=== PATIENT | female | born 1955 | race Hispanic/Latino ===

== ENCOUNTER 2018-08-06 06:08 | Emergency (ER) | payer OTHER ==
--- OUTSIDE RECORDS SUMMARY | 2018-08-06 06:10 | XMS REPORT ---
:1955 [facility] [address] [place] [address] Care Team Providers Name Role Phone Unavailable Unavailable Unavailable Problems This patient has no known problems. Allergies, Adverse Reactions, Alerts This patient has no known allergies or adverse reactions. Medications This patient has no known medications. Results Test Description Test Time Test Comments Text Results Atomic Results Result Comments SCR MAMM BILATERAL BOUCHRA 2018-06-07 10:39:44 - SCR MAMM BILATERAL BOUCHRA CAD CAD DIGITAL DIGITALBILATERAL DIGITAL SCREENING MAMMOGRAM 3D/2D WITH CAD: 05/26/2018CLINICAL: Asymptomatic. Digital breast tomosynthesis was performed in addition to routine CC and MLO views. Current mammographic images were evaluated by either a [employer] M-Vu or a [employer] ImageChecker CAD (computer aided detection system). No prior outside exams are currently available for comparison. There are scattered fibroglandular tissues in both breasts. There is minimal vascular calcification in the right breast. There also is a benign calcification in the left breast. Additionally, there are small benign-appearing masses, possible intramammary nodes, in the posterior inferomedial left breast. No suspicious mass, architectural distortion, malignant type calcification, or lymph node abnormality detected. IMPRESSION: BENIGNThere is no mammographic evidence of malignancy. Resume annual screening mammography in one year. The patient is unable to recall the location where prior mammograms were obtained. Please advise if your office has a record of prior studies so that attempts can be made to obtain prior mammograms for comparison.Ravinder Beatty M.D. rb/:06/07/2018 10:39:44 [place] Machine Operator: Minerva Long MM, [facility] Mammographyletter sent: BIRADS 1-2 Normal Mammogram BI-RADS: 2 Benign
[2018-08-06] MEDS ORDERED: LIDOCAINE 1% 20 ML MDV ONE (06:54)
[2018-08-06] MEDS ORDERED: TETANUS & DIPHTHERIA TOX,ADULT 0.5 ML VIAL ONE (06:55)
--- NOTE | 2018-08-06 08:13 | RAD REPORT ---
EXAM DESCRIPTION: RAD - Forearm Right - 08/06/2018 7:10 am CLINICAL HISTORY: Fall, trauma, laceration COMPARISON: None. FINDINGS: Two-view right 4 examination performed. Positioning is not optimal. Patient was not able t o fully extend the arm. There is no dislocation or periosteal reaction noted. No acute or destructive bone process seen. The re is minimal degenerative change at the humerus ulna articulation. Soft tissues are prominent. Baseline for the patient is unknown. No foreign body seen. IMPRESSION: No foreign body identified. No acute bone or joint finding.
--- NOTE | 2018-08-06 08:14 | RAD REPORT ---
EXAM DESCRIPTION: RAD - Humerus Right - 08/06/2018 7:10 am CLINICAL HISTORY: Fall, trauma, arm pain COMPARISON: None. FINDINGS: No fracture is identified. There is no dislocation or periosteal reaction noted. Surgical hardware in place in the right humeral head presumed to be rotator cuff repair procedure. Soft tissue calcification is seen on the internal rotation view along the humeral head. This is probably a degen erative tendon calcification. This is not acutely significant. Minimal degenerative change present at the elbow joint. No air or foreign body in the soft tissues. IMPRESSION: Negative right humerus for acute bone or joint finding. No foreign body or suspicious soft tissue finding.
--- NOTE | 2018-08-06 08:45 | EDPHYS ---
Physician Documentation [facility] Name: Debbi Soto Age: 63 yrs Sex: Female : 1955 Arrival Date: 08/06/2018 Time: 06:11 Bed 15 Private MD: ED Physician Keyon Chi HPI: 08/06 07:14 This 63 yrs old Female presents to ER via Ambulatory with complaints of Fall kb Injury, LACERATIONS. 07:14 Details of fall: The patient fell from an upright position, while walking. Onset: The kb symptoms/episode began/occurred this morning. Associated injuries: The patient sustained right tricep and palmar aspect of right forearm, laceration. Severity of symptoms: At their worst the symptoms were moderate, in the emergency department the symptoms are unchanged. The patient has not experienced similar symptoms in the past. The patient has not recently seen a physician. Pt reports she was walking at the dentist's office, tripped on a lip in the floor, and fell. Arm went through a window causing laceration to upper arm and forearm. Denies any other injuries. Historical: - Allergies: 06:15 Morphine; jb4 - Home Meds: 06:15 amlodipine oral [Active]; benazepril 20 mg Oral tab unknown frequency [Active]; jb4 lovastatin 10 mg Oral tab 1 tab once daily [Active]; metoprolol 100mg unknown frequency [Active]; spironolactone 25 mg Oral tab unknown frequency [Active]; Vitamin D3 Oral [Active]; [place]-3 Oral [Active]; - PMHx: 06:15 Hyperlipidemia; Hypertension; Sleep Apnea; jb4 - PSHx: 06:15 right rotator cuff; Cholecystectomy; right hand; jb4 - Immunization history:: Adult Immunizations up to date, Last tetanus immunization: unknown. - Social history:: Smoking status: Patient/guardian denies using tobacco, Patient/guardian denies using alcohol. - Ebola Screening: : No symptoms or risks identified at this time. ROS: 07:13 Constitutional: Negative for fever, chills, and weight loss, Neck: Negative for injury, kb pain, and swelling, Cardiovascular: Negative for chest pain, palpitations, and edema, Respiratory: Negative for shortness of breath, cough, wheezing, and pleuritic chest pain, Abdomen/GI: Negative for abdominal pain, nausea, vomiting, diarrhea, and constipation, Back: Negative for injury and pain, : Negative for injury, bleeding, discharge, and swelling, MS/Extremity: Negative for injury and deformity, Neuro: Negative for headache, weakness, numbness, tingling, and seizure. 07:13 Skin: Positive for laceration(s), of the right tricep and palmar aspect of right forearm. Exam: 07:13 Constitutional: This is a well developed, well nourished patient who is awake, alert, kb and in no acute distress. Head/Face: Normocephalic, atraumatic. Chest/axilla: Normal chest wall appearance and motion. Nontender with no deformity. No lesions are appreciated. Cardiovascular: Regular rate and rhythm with a normal S1 and S2. No gallops, murmurs, or rubs. Normal PMI, no JVD. No pulse deficits. Respiratory: Lungs have equal breath sounds bilaterally, clear to auscultation and percussion. No rales, rhonchi or wheezes noted. No increased work of breathing, no retractions or nasal flaring. Abdomen/GI: Soft, non-tender, with normal bowel sounds. No distension or tympany. No guarding or rebound. No evidence of tenderness throughout. MS/ Extremity: Pulses equal, no cyanosis. Neurovascular intact. Full, normal range of motion. Neuro: Awake and alert, GCS 15, oriented to person, place, time, and situation. Cranial nerves II-XII grossly intact. Motor strength 5/5 in all extremities. Sensory grossly intact. Cerebellar exam normal. Normal gait. Vital Signs: 06:15 BP 185 / 121; Pulse 85; Resp 16; Temp 98.3(O); Pulse Ox 95% on R/A; Weight 136.08 kg jb4 (R); Height 5 ft. 0 in. (152.40 cm) (R); Pain 2/10; 07:00 BP 174 / 97; Pulse 74; Resp 19; Pulse Ox 99% on R/A; em 08:00 BP 168 / 101; Pulse 76; Resp 18; Pulse Ox 99% on R/A; em 06:15 Body Mass Index 58.59 (136.08 kg, 152.40 cm) jb4 Laceration: 08:41 Wound Repair of 6cm ( 2.4in ) subcutaneous laceration to right tricep. Linear shaped.. kb Distal neuro/vascular/tendon intact. Anesthesia: Wound infiltrated with 5 mls of 1% lidocaine. Wound prep: Extensive cleansing with hibiclenz by me, Wound irrigation with saline by me. Skin closed with 7 4-0 Prolene using interrupted sutures and sterile technique. Dressed with Neosporin, 4x4's. Patient tolerated well. 08:41 Wound Repair of 4cm ( 1.6in ) subcutaneous laceration to palmar aspect of right kb forearm. Irregularly shaped.. Distal neuro/vascular/tendon intact. Anesthesia: Wound infiltrated with 4 mls of 1% lidocaine. Wound prep: Extensive cleansing with hibiclenz by me, Wound irrigation with saline by me. Skin closed with 6 4-0 Prolene using interrupted sutures and sterile technique. Dressed with Neosporin, 4x4's. Patient tolerated well. MDM: 06:24 Patient medically screened. kb 07:13 Data reviewed: vital signs, nurses notes. Data interpreted: Pulse oximetry: on room air kb is 95 %. Interpretation: normal. 08:42 Counseling: I had a detailed discussion with the patient and/or guardian regarding: the kb historical points, exam findings, and any diagnostic results supporting the discharge/admit diagnosis, radiology results, the need for outpatient follow up, a family practitioner, to return to the emergency department if symptoms worsen or persist or if there are any questions or concerns that arise at home. Special discussion: I have referred the patient to see his PCP for further evaluation of high blood pressure. ED course: Pt reports she is supposed to take medication for blood pressure, but she stopped taking it because she has a fatty liver. Educated on the importance of controlling blood pressure and to follow up with PCP to continue medications. 08/06 06:30 Order name: Humerus Right XRAY; Complete Time: 08:41 kb 08/06 06:30 Order name: Forearm Right XRAY; Complete Time: 08:41 kb 08/06 06:32 Order name: Prolene, Sutures; Complete Time: 06:47 kb 08/06 06:32 Order name: Dressing - Wound; Complete Time: 08:52 kb 08/06 06:32 Order name: Gloves, Sterile; Complete Time: 06:47 kb 08/06 06:32 Order name: Setup Suture Tray; Complete Time: 06:47 kb Administered Medications: 06:57 Drug: Tetanus-Diphtheria Toxoid Adult 0.5 ml {Wellness Educator: [employer]. Exp: jb4 05/21/2020. Lot #: [id number]. } Route: IM; Site: left deltoid; 07:00 Follow up: Response: No adverse reaction em 08:20 Drug: Lidocaine (1 %) 1 vials {Note: administered by NP. Saba} Volume: 20 ml; em Route: Infiltration; 08:30 Follow up: Response: No adverse reaction; Pain is decreased em Disposition: 08/06/18 08:44 Discharged to Home. Impression: Laceration without foreign body of right forearm, Laceration without foreign body of right upper arm, Essential (primary) hypertension. - Condition is Stable. - Discharge Instructions: Hypertension, [id number], Laceration Care, Adult, Iele-[id number]. - Medication Reconciliation Form, Thank You Letter, Antibiotic Education, Prescription Opioid Use form. - Follow up: Emergency Department; When: As needed; Reason: Worsening of condition. Follow up: Private Physician; When: 2 - 3 days; Reason: Recheck today's complaints, Continuance of care, Re-evaluation by your physician. Signatures: Dispatcher [employer] EDSaba Rice, MACHINE SHOP SUPERVISOR-C MACHINE SHOP SUPERVISOR-Brandonb Rich García, LABEL MAKER LABEL MAKER Nicholas Lofton, YOLANDA RN jb4 Corrections: (The following items were deleted from the chart) 08:44 08:44 08/06/2018 08:44 Discharged to Home. Impression: Laceration without foreign body kb of right forearm; Laceration without foreign body of right upper arm. Condition is Stable. Forms are Medication Reconciliation Form, Thank You Letter, Antibiotic Education, Prescription Opioid Use. Follow up: Emergency Department; When: As needed; Reason: Worsening of condition. Follow up: Private Physician; When: 2 - 3 days; Reason: Recheck today's complaints, Continuance of care, Re-evaluation by your physician. kb 09:00 08:44 08/06/2018 08:44 Discharged to Home. Impression: Laceration without foreign body em of right forearm; Laceration without foreign body of right upper arm; Essential (primary) hypertension. Condition is Stable. Discharge Instructions: Hypertension, Dfgi-ln-Ltey, Laceration Care, Adult, Khhj-[id number]. Forms are Medication Reconciliation Form, Thank You Letter, Antibiotic Education, Prescription Opioid Use. Follow up: Emergency Department; When: As needed; Reason: Worsening of condition. Follow up: Private Physician; When: 2 - 3 days; Reason: Recheck today's complaints, Continuance of care, Re-evaluation by your physician. kb
--- NOTE | 2018-08-06 08:45 | ER ---
Nurse's Notes [facility] Name: Debbi Soto Age: 63 yrs Sex: Female : 1955 Arrival Date: 08/06/2018 Time: 06:11 Bed 15 Private MD: Diagnosis: Laceration without foreign body of right forearm;Laceration without foreign body of right upper arm;Essential (primary) hypertension Presentation: 08/06 06:15 Presenting complaint: Patient states: I fell through a glass door this morning and cut jb4 my elbow. It feels like there is still glass in it. 06:15 Transition of care: patient was not received from another setting of care. Onset of jb4 symptoms was August 06, 2018. Risk Assessment: Do you want to hurt yourself or someone else? Patient reports no desire to harm self or others. Initial Sepsis Screen: Does the patient meet any 2 criteria? No. Patient's initial sepsis screen is negative. Does the patient have a suspected source of infection? No. Patient's initial sepsis screen is negative. Care prior to arrival: None. 06:15 Method Of Arrival: Ambulatory jb4 06:15 Acuity: GONSALO 3 jb4 Triage Assessment: 06:15 General: Appears in no apparent distress. comfortable, Behavior is calm, cooperative, jb4 appropriate for age. Pain: Complains of pain in right elbow and palmar aspect of right forearm Pain does not radiate. Pain currently is 2 out of 10 on a pain scale. Pain began 1 hour ago. EENT: No signs and/or symptoms were reported regarding the EENT system. Neuro: Level of Consciousness is awake, Oriented to person. Cardiovascular: Patient's skin is warm and dry. Respiratory: Airway is patent Respiratory effort is even, unlabored, Respiratory pattern is regular, symmetrical. GI: No signs and/or symptoms were reported involving the gastrointestinal system. : No signs and/or symptoms were reported regarding the genitourinary system. Derm: Skin is pink, warm \T\ dry. Wound noted right elbow and palmar aspect of right forearm Lacerations to the elbow and upper forearm. Musculoskeletal: Circulation, motion, and sensation intact. Injury Description: Laceration sustained to right elbow and palmar aspect of right forearm is full thickness, 2.6 to 7.5 cm long, bleeding moderately, moderate bleeding noted at this time. Historical: - Allergies: 06:15 Morphine; jb4 - Home Meds: 06:15 amlodipine oral [Active]; benazepril 20 mg Oral tab unknown frequency [Active]; jb4 lovastatin 10 mg Oral tab 1 tab once daily [Active]; metoprolol 100mg unknown frequency [Active]; spironolactone 25 mg Oral tab unknown frequency [Active]; Vitamin D3 Oral [Active]; [place]-3 Oral [Active]; - PMHx: 06:15 Hyperlipidemia; Hypertension; Sleep Apnea; jb4 - PSHx: 06:15 right rotator cuff; Cholecystectomy; right hand; jb4 - Immunization history:: Adult Immunizations up to date, Last tetanus immunization: unknown. - Social history:: Smoking status: Patient/guardian denies using tobacco, Patient/guardian denies using alcohol. - Ebola Screening: : No symptoms or risks identified at this time. Screenin:15 Abuse screen: Denies threats or abuse. Nutritional screening: No deficits noted. jb4 Tuberculosis screening: No symptoms or risk factors identified. Fall Risk None identified. Assessment: 06:15 General: see triage assessment.. jb4 06:30 Reassessment: Provider notified of high blood pressure, no orders at this time. jb4 07:00 Reassessment: Patient appears in no apparent distress at this time. Patient and/or em family updated on plan of care and expected duration. Pain level reassessed. Patient is alert, oriented x 3, equal unlabored respirations, skin warm/dry/pink. pending x-ray results and sutures. 08:00 Reassessment: Patient appears in no apparent distress at this time. Patient and/or em family updated on plan of care and expected duration. Pain level reassessed. Patient is alert, oriented x 3, equal unlabored respirations, skin warm/dry/pink. Vital Signs: 06:15 BP 185 / 121; Pulse 85; Resp 16; Temp 98.3(O); Pulse Ox 95% on R/A; Weight 136.08 kg jb4 (R); Height 5 ft. 0 in. (152.40 cm) (R); Pain 2/10; 07:00 BP 174 / 97; Pulse 74; Resp 19; Pulse Ox 99% on R/A; em 08:00 BP 168 / 101; Pulse 76; Resp 18; Pulse Ox 99% on R/A; em 06:15 Body Mass Index 58.59 (136.08 kg, 152.40 cm) jb4 ED Course: 06:11 Patient arrived in ED. es 06:15 Arm band placed on left wrist. jb4 06:15 Patient has correct armband on for positive identification. Bed in low position. Call jb4 light in reach. Side rails up X 1. Pulse ox on. NIBP on. 06:24 Saba Nice [facility]-C [facility]. kb 06:24 Keyon Chi MD is Attending Physician. kb 06:30 Nicholas Rose, YOLANDA is Primary Nurse. jb4 06:32 Triage completed. jb4 07:10 Humerus Right XRAY In Process Unspecified. EDMS 07:10 Forearm Right XRAY In Process Unspecified. EDMS 08:30 Assist provider with laceration repair on back of right arm that was between 2.6 to 7.5 em cm using sutures. Set up tray. Performed by Saba MTZ Dressed with 4X4s, Kerlix, Patient tolerated well. 08:48 Dressings: Kerlix X 1; right tricep 4X4s X 4; right tricep. Wound care:. Wound care: kj1 triple antibiotic ointment applied. 08:59 Patient did not have IV access during this emergency room visit. em Administered Medications: 06:57 Drug: Tetanus-Diphtheria Toxoid Adult 0.5 ml {Restaurant Recruiter: [employer]. Exp: jb4 05/21/2020. Lot #: [id number]. } Route: IM; Site: left deltoid; 07:00 Follow up: Response: No adverse reaction em 08:20 Drug: Lidocaine (1 %) 1 vials {Note: administered by NP. Saba} Volume: 20 ml; em Route: Infiltration; 08:30 Follow up: Response: No adverse reaction; Pain is decreased em Outcome: 08:44 Discharge ordered by . kb 08:59 Discharged to home ambulatory, with family. em 08:59 Condition: good 08:59 Discharge instructions given to patient, family, Instructed on discharge instructions, follow up and referral plans. Demonstrated understanding of instructions, follow-up care. 09:00 Patient left the ED. em Signatures: Dispatcher [employer] EDSaba Rice FNP-C FNP-Ckb Salyer, Edna es García, Rich, RUBBER THREAD SPOOLER RUBBER THREAD SPOOLER Nicholas Lofton, RN RN jb4 Meron Nice kj1
[2018-08-06 09:14] VITALS: TEMP 98.4
[2018-08-06 09:16] VITALS: BP 132/82; O2SAT 100
== END 2018-08-06 09:00 | disposition home or self-care (01) ==
LOC: ER 06:08
PROC: 0JQG0ZZ Repair Right Lower Arm Subcutaneous Tissue and Fascia, Open Approach (ICD-10-PCS; principal; 2018-08-06)
PROC: 0JQD0ZZ Repair Right Upper Arm Subcutaneous Tissue and Fascia, Open Approach (ICD-10-PCS; 2018-08-06)
DX: S51.811A Laceration without foreign body of right forearm, initial encounter (principal); S41.111A Laceration without foreign body of right upper arm, initial encounter; I10 Essential (primary) hypertension; W01.110A Fall on same level from slipping, tripping and stumbling with subsequent striking against sharp glass, initial encounter; Y93.89 Activity, other specified; Y92.531 Health care provider office as the place of occurrence of the external cause; Z23 Encounter for immunization
CPT/HCPCS: 90714; 99284

== ENCOUNTER 2022-01-20 08:43 | Emergency (ER) | payer OTHER ==
--- OUTSIDE RECORDS SUMMARY | 2022-01-20 08:46 | XMS REPORT | Continuity of Care Document ---
:1955 Author Organization [facility] t Address [address] [place] [address] Care Team Providers Name Role Phone SHAGGY WINSLOW A Primary Care Physician Unavailable PATRICIA HUMMEL Attending Clinician Unavailable GEOVANNA BOUDREAUX Attending Clinician Unavailable Payers Payer Name Policy Type Policy Number Effective Date Expiration Date S manuel [facility] DUAL [id number] 2020 COMP HMO D SNP 00:00:00 [place] [id number] 2019 00:00:00 Problems Condition Condition Condition Status Onset Resolution Last Treating Co mments Source Name Details Category Date Date Treatment Clinician Date 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 obstructiv obstructiv 1-22 it y of e sleep e sleep 00:: [place] apnea apnea [facility] Osteopenia Osteopenia Disease Active 2020-05 U nivers 0-29 ity of 00:00: [address] Microscopi Microscopi Disease Active 2020-05 U nivers c c 0-22 [place] [facility] Vitamin D Vitamin D Disease Active 2019-05 Uni vers deficiency deficiency 0-25 it y of 00:00: [address] Abnormal Abnormal Disease Active 2019-05 Unive rs EKG EKG 0-21 ity of 00:00: [address] Chronic Chronic Disease Active Univers constipati constipati 4-23 it y of on on 00:00: [place] 00 Medical Branch Urinary Urinary Disease Active 2018-05 Univers incontinen incontinen 1-22 it y of ce, ce, 00:00: [place] unspecifie unspecifie 00 Me dical d type d type Branch Prediabete Prediabete Disease Active 2018-05 U nivers s s 0-30 ity of 00:00: Medical Branch Fatty Fatty Disease Active 2018-05 Univers liver liver 0-28 ity of 00:00: [place] 00 Medical Branch Essential Essential Disease Active Uni vers hypertensi hypertensi 8-21 it y of on, benign [place], benign [place] Hyperchole Hyperchole Disease Active U nivers sterolemia sterolemia 8- it y of 00:00: 00 Medical Branch Morbid Morbid Disease Active Univers obesity obesity 4-26 ity of with body with body 00[place] mass index mass index 00 Me dical of 50 or of 50 or Branch higher higher Allergies, Adverse Reactions, Alerts Allergy Allergy Status Severity Reaction(s) Onset Inactive Treating Comm ents Source Name Type Date Date Clinician MORPHINE DRUG Active Other-Cmnt Univ ers INGREDI 4-25 ity of 00:00: [place] 00 Medical Branch Morphine Drug Active Other - See Pt states Univers Intolera comments 08-25 that ity of nce 00:00: Morphine [place] 00 makes Medical pt's pain Branch worse. Social History Social Habit Start Date Stop Date Quantity Comments Source Exposure to 2021-12-27 2022-01-06 Not sure [facility] SARS-CoV-2 00:00:00 08:18:00 [place] [facility] (event) Branch Alcohol intake 2021-12-22 2021-12-22 Current [facility] 00:00:00 00:00:00 non-drinker of [facility] alcohol (finding) Branch Tobacco use and 2021-12-15 2021-12-15 Smokeless tobacco Un iversity of exposure 00:00:00 00:00:00 non-user [facility] Sex Assigned At [birth year] Universit y of 00:00:00 00:00:00 [facility] Smoking Status Start Date Stop Date Source Never smoked tobacco [facility] Medications Ordered Filled Start Stop Current Ordering Indication Dosage Frequency Signature Comments Components Source Medication Medication Date Date Medication? Clinician (SIG) Name Name METFORMIN 0 Yes [id number] TAKE 1 U nivers 500 mg 9-14 TABLET BY ity of tablet 00:00: MOUTH [place] 00 TWICE A Medical DAY WITH Branch MEALS METFORMIN 2021-0 Yes [id number] TAKE 1 U nivers 500 mg 9-14 TABLET BY ity of tablet 00:00: MOUTH [place] 00 TWICE A Medical DAY WITH Branch MEALS ATORVASTATI Yes TAKE 1 Univ ers N 80 mg 9-09 TABLET BY ity of tablet 00:00: MOUTH [place] 00 EVERYDAY Medical AT BEDTIME Branch ATORVASTATI 0 Yes TAKE 1 Univ ers N 80 mg 9-09 TABLET BY ity of tablet 00:00: MOUTH [place] 00 EVERYDAY Medical AT BEDTIME Branch mirabegron Yes [id number] 50mg Take 1 U nivers (MYRBETRIQ) 8-22 tablet by ity of 50 mg 00:00: mouth in [place] tablet 00 the Medical morning. Branch mirabegron Yes [id number] 50mg Take 1 U nivers (MYRBETRIQ) 8-22 tablet by ity of 50 mg 00:00: mouth in [place] tablet 00 the Medical morning. Branch evolocumab Yes [id number] 140mg inject 140 Univers (REPATHA 7-28 104 mg under ity of SURECLICK) 00:00: the skin [place] 140 mg/mL 00 every 2 Medical PnIj (two) Branch weeks. evolocumab Yes [id number] 140mg inject 140 Univers (REPATHA 7-28 104 mg under ity of SURECLICK) 00:00: the skin [place] 140 mg/mL 00 every 2 Medical PnIj (two) Branch weeks. NIFEdipine 2021-0 2021- Yes [id number] 30mg Take 1 Univers XL 30 mg 24 7-25 10-24 104 tablet by it y of hr tablet 00:00: 04:59 mouth in [place] 00 :00 the Medical morning Branch and 1 tablet in the evening. Do all this for 90 days. NIFEdipine 2021-0 2021- Yes [id number] 30mg Take 1 Univers XL 30 mg 24 7-25 10-24 104 tablet by it y of hr tablet 00:00: 04:59 mouth in [place] 00 :00 the Medical morning Branch and 1 tablet in the evening. Do all this for 90 days. losartan 50 2-0 Yes [id number] 50mg Take 1 U nivers mg tablet 5-02 tablet by ity o f 00:00: mouth 2 (two) Medical times Branch daily. losartan 50 2-0 Yes [id number] 50mg Take 1 U nivers mg tablet 5-02 tablet by ity o f 00:00: mouth 2 (two) Medical times Branch daily. mv-mn/iron/ 2021-0 Yes 2000mg Take 2,000 Univers folic 4-21 mg by ity of acid/herb 10:15: mouth [place] 190 42 daily. Medical (VITAMIN D3 Branch COMPLETE ORAL) mv-mn/iron/ 2021-0 Yes 2000mg Take 2,000 Univers folic 4-21 mg by ity of acid/herb 10:15: mouth [place] 190 42 daily. Medical (VITAMIN D3 Branch COMPLETE ORAL) EZETIMIBE 2021-0 Yes TAKE 1 Univer s 10 mg 4-11 TABLET BY ity of tablet 00:00: MOUTH [place] 00 EVERY DAY Medical Branch EZETIMIBE 2-0 Yes TAKE 1 Univer s 10 mg 4-11 TABLET BY ity of tablet 00:00: MOUTH [place] 00 EVERY DAY Medical Branch trospium 20 2-0 Yes [id number] 20mg Take 1 Univers mg tablet 2-25 tablet by ity o f 00:00: mouth 2 (two) Medical times Branch daily. trospium 20 2-0 Yes [id number] 20mg Take 1 Univers mg tablet 2-25 tablet by ity o f 00:00: mouth (two) Medical times Branch daily. Cholecalcif 2020-1 Yes [id number] 2000U Take 1 Univers perfecto, 1-08 capsule by ity of Vitamin D3, 00:00: mouth [place] (D3-1999) 00 daily. Medical 50 mcg Take with Branch (2,000 food. unit) capsule Cholecalcif 2020-1 Yes [id number] 2000U Take 1 Univers perfecto, 1-08 capsule by ity of Vitamin D3, 00:00: mouth [place] (D3-2000) 00 daily. Medical 50 mcg Take with Branch (2,000 food. unit) capsule icosapent 2020-1 Yes [id number] 2g Take 2 U nivers ethyL 0-19 capsules ity of (VASCEPA) 1 00:00: by mouth 2 [place] gram 00 (two) Medical capsule times Branch daily. icosapent 2020-05 Yes [id number] 2g Take 2 U nivers ethyL 0-19 capsules ity of (VASCEPA) 1 00:00: by mouth 2 [place] gram 00 (two) Medical capsule times Branch daily. Incontinenc 2018-05 Yes [id number] Use as Univers e Pad, 1-22 directed; ity of Liner, Disp 00:00: ICD-10 [place] 00 DIAGNOSIS Medical CODE R32 Branch Diaper,Brie 2018-05 Yes [id number] Use as Univers f, 1-22 directed; ity of Adult,Dispo 00:00: ICD-10 [place] 00 DIAGNOSIS Medical (WINGS XXL CODE R32 Branc h ADULT BRIEF) [facility] Incontinenc 2018-05 Yes [id number] Use as Univers e Pad, 1-22 directed; ity of Liner, Disp 00:00: ICD-10 [place] 00 DIAGNOSIS Medical CODE R32 Branch Diaper,Brie 2018-05 Yes [id number] Use as Univers f, 1-22 directed; ity of Adult,Dispo 00:00: ICD-10 [place] 00 DIAGNOSIS Medical (WINGS XXL CODE R32 Branc h ADULT BRIEF) [facility] Immunizations Ordered Filled Immunization Date Status Comments [facility] e Immunization Name Name Influenza Virus 2021-04-08 Completed Universit y of Vaccine,quad 00:00:00 [place] [facility] Free [place] 65+ SARS-COV-2 COVID-19 2021-04-08 Completed Unive rsity of PFIZER VACCINE 00:00:00 [place] [facility] Influenza Virus 2021-04-08 Completed Universit y of Vaccine,quad 00:00:00 [place] [facility] Im,preserve Free Branch 65+ SARS-COV-2 COVID-19 2021-04-08 Completed Unive rsity of PFIZER VACCINE 00:00:00 [place] [facility] SARS-COV-2 COVID-19 2020-08-01 Completed Unive rsity of PFIZER VACCINE 00:00:00 [place] [facility] SARS-COV-2 COVID-19 2020-08-01 Completed Unive rsity of PFIZER VACCINE 00:00:00 [place] [facility] SARS-COV-2 COVID-19 2020-07-11 Completed Unive rsity of PFIZER VACCINE 00:00:00 [place] [facility] SARS-COV-2 COVID-19 2020-07-11 Completed Unive rsity of PFIZER VACCINE 00:00:00 [place] [facility] TDAP 2017-05-03 Completed University 00:00:00 [facility] 2017-05-03 Completed [facility] 00:00:00 [facility] Vital Signs Vital Name Observation Time Observation Value Comments Source Systolic blood 2022-01-19 13:58:00 130 mm[Hg] Univer sity of pressure [facility] Diastolic blood 2022-01-19 13:58:00 70 mm[Hg] Unive rsity of pressure [facility] Heart rate 2022-01-19 13:58:00 80 /min [facility] Body temperature 2022-01-19 13:58:00 36.56 [facility] Res[facility] rate 2022-01-19 13:58:00 18 /min [facility] Body height 2022-01-19 13:58:00 144.8 cm [facility] Body weight 2022-01-19 13:58:00 117.935 kg [facility] BMI 2022-01-19 13:58:00 56.26 kg/m2 [facility] Procedures This patient has no known procedures. Encounters Start End Encounter Admission Attending Care Care Encounter Source Date/Time Date/Time Type Type Clinicians Facility Department ID 2022-07-03 2022-07-03 Outpatient R [place] [facility] [id number] [facility] 10:30:00 10:30:00 PATRICIA grossman [facility] 2022-01-19 2022-01-19 [facility] [id number] Univers 09:00:00 09:50:21 Visit Patricia KAN [id number] i [facility] [id number] Adele QUAN [id number] Wa dical [facility]8 [facility] 2021-07-28 2021-07-28 Outpatient R JANUSZ [facility] [id number] Univers 09:30:00 09:30:00 SENDIL [facility] Results Test Description Test Time Test Comments Results Result Sourc e Comments SCR MAMM 2018-06-07 - SCR MAMM BILATERAL BILATERAL [place]OUCHRA 10:39:44 [place] CAD CAD DIGITAL DIGITALBILATERAL DIGITAL SCREENING MAMMOGRAM 3D/2D WITH CAD: 05/26/2018CLINICAL: Asymptomatic. Digital breast tomosynthesis was performed in addition to routine CC and MLO views. Current mammographic images were evaluated by either a [employer] M-Vu or a Universal Biosensorscker CAD (computer aided detection system). No prior [...] mammograms for comparison.Ravinder Beatty M.D. rb/:06/07/2018 10:39:44 Shingle Packer: Minerva Long MM, [facility] Mammographyletter sent: BIRADS 1-2 Normal Mammogram BI-RADS: 2 Benign
[2022-01-20 09:56] LABS: Urine Blood 2+ (Negative); Urine Glucose Negative (Negative); Urine Protein 2+ (Negative); Urine Specific Gravity 1.025 (1.005-1.030)
[2022-01-20] MEDS ORDERED: LIDOCAINE 4% PATCH ONE (10:21)
[2022-01-20 11:05] LABS: Urine Bacteria <20 /HPF (<20); Urine Mucus Slight /HPF (None Seen); Urine RBC <5 /HPF (None Seen)
[2022-01-20 12:17] LABS: Hematocrit 41.9 % (36.0-45.0); Lymphocytes % 25.7 % (15.3-44.8); MCV 88.9 fL (80-100); MPV 8.5 fL (7.6-11.3); RBC Red Blood Cell Count 4.71 M/uL (3.86-4.86)
[2022-01-20 12:39] LABS: Albumin 3.6 g/dL (3.4-5.0); Bilirubin Total 0.7 mg/dL (0.2-1.0); Potassium 4.2 mmol/L (3.5-5.1); Protein, Total 7.8 g/dL (6.4-8.2); Troponin High Sensitivity 37.4 pg/mL (<58.9)
--- NOTE | 2022-01-20 13:11 | RAD REPORT ---
EXAM DESCRIPTION: CT - Abdomen Pelvis Wo Contrast - 01/20/2022 12:56 pm CLINICAL HISTORY: Abdominal pain /flank pain COMPARISON: 2017 TECHNIQUE: Computed axial tomography of the abdomen and pelvis was obtained. IV and oral contrast we re not requested. All CT scans are performed using dose optimization technique as appropriate and may include automated exposure control or mA/KV adjustment according to patient size. FINDINGS: The evaluation of solid organs, vessels and bowel is limited secondary to the lack of con trast administration. The liver, spleen, pancreas, adrenals and kidneys appear grossly normal. The appendix is normal. There is no evidence of diverticulitis. No adnexal mass Cholecystectomy IMPRESSION: No acute abnormality is displayed.
[2022-01-20] MEDS ORDERED: KETOROLAC 30 MG/ML INJ ONE (13:26)
--- NOTE | 2022-01-20 13:39 | EDPHYS ---
Physician Documentation [facility] [place] [facility] Name: Debbi Soto Age: 66 yrs Sex: Female : 1955 Arrival Date: 01/20/2022 Time: 08:45 Bed 12 Private MD: ED Physician Dilma Perdue HPI: 01/20 10:02 This 66 yrs old Female presents to ER via Ambulatory with complaints of Back sd2 Pain. 10:02 66-year-old female presents with chief complaint of right-sided flank and low back sd2 pain. She reports this started evening and she had labs drawn last week where they told her her kidney function was not great and to drink more water. Her back pain progressively worsened throughout the weekend and she was seen at her doctor's office yesterday who referred her to the ER to have an ultrasound performed of her kidneys. The patient reports concern for kidney stone. She has not taken any hehq-aiy-bdxqrku medications for her pain prior to arrival. She denies any dysuria or hematuria or prior history of kidney stones. She denies any significant trauma or injury to the back. She has not had any fevers, saddle anesthesia, difficulty walking, numbness or weakness of the extremities. Historical: - Allergies: 09:19 Morphine; jh5 - PMHx: 09:19 Sleep Apnea; Hyperlipidemia; Hypertension; Diabetes mellitus; jh5 - Immunization history:: Adult Immunizations up to date. - Social history:: Smoking status: Patient denies any tobacco usage or history of. ROS: 10:02 Constitutional: Negative for fever, chills, and weight loss, Eyes: Negative for injury, sd2 pain, redness, and discharge, Cardiovascular: Negative for chest pain, palpitations, and edema, Respiratory: Negative for shortness of breath, cough, wheezing. Abdomen/GI: Negative for abdominal pain, nausea, vomiting, diarrhea. Back: Negative for injury Positive for pain : Negative for dysuria, urinary frequency, hesitancy, urgency and hematuria. MS/Extremity: Negative for injury and deformity, Skin: Negative for injury, rash, and discoloration, Neuro: Negative for headache, numbness and tingling. Exam: 10:02 Constitutional: This is a well developed, well nourished patient who is awake, alert, sd2 and in no acute distress. Head/Face: Normocephalic, atraumatic. Eyes: EOMI, normal conjunctiva bilaterally Chest/axilla: Normal chest wall appearance and motion. Nontender with no deformity. Cardiovascular: Regular rate and rhythm with a normal S1 and S2. No gallops, murmurs, or rubs. 2+ distal pulses. Respiratory: Lungs have equal breath sounds bilaterally, clear to auscultation and percussion. No rales, rhonchi or wheezes noted. No increased work of breathing, no retractions or nasal flaring. Abdomen/GI: Soft, non-tender, with normal bowel sounds. No guarding or rebound. No evidence of tenderness throughout. Back: No spinal tenderness. R CVA TTP and R lumbar paraspinal muscular tenderness. Full range of motion. Skin: Warm, dry with normal turgor. Normal color with no rashes, no lesions, and no evidence of cellulitis. MS/ Extremity: Pulses equal, no cyanosis. Neurovascular intact. Full, normal range of motion. Ambulatory without difficulty. Neuro: Awake and alert, GCS 15, oriented to person, place, time, and situation. Motor strength 5/5 in BLEs, Ambulatory without difficulty, sensation intact Psych: Awake, alert, with orientation to person, place and time. Behavior, mood, and affect are within normal limits. 11:23 ECG was reviewed by the Attending Physician. NSR, rate 67, no STEMI criteria, wandering sd2 baseline Vital Signs: 09:15 BP 136 / 79; Pulse 79; Resp 16; Temp 98.6; Pulse Ox 98% on R/A; Weight 117.93 kg; jh5 Height 5 ft. 0 in. (152.40 cm); Pain 10/10; 09:15 Body Mass Index 50.78 (117.93 kg, 152.40 cm) jh5 MDM: 09:55 Patient medically screened. sd2 10:02 Differential diagnosis: Spinal stenosis, epidural abscess, cauda equina, fracture, sd2 sprain, strain, herniated disc, UTI among others. Data reviewed: vital signs, nurses notes. 13:36 Data reviewed: lab test result(s), EKG, radiologic studies. Counseling: I had a sd2 detailed discussion with the patient and/or guardian regarding: the historical points, exam findings, and any diagnostic results supporting the discharge/admit diagnosis, lab results, radiology results, the need for outpatient follow up, to return to the emergency department if symptoms worsen or persist or if there are any questions or concerns that arise at home. Medical screen evaluation completed. EMTALA emergency medical condition absent. ED course: Labs and imaging reviewed. No significant abnormalities noted with patient's kidney function. UA without clear evidence of infection. CTAP with no acute abnormalities. Pt feeling much improved after Toradol and lidocaine patch. Pt is comfortable with plan for discharge and outpatient follow up. Suspect MSK etiology. Pt verbalizes understanding of discharge plan and strict return precautions. . 01/20 09:56 Order name: Urine Dipstick-Ancillary; Complete Time: 10:02 EDMS 01/20 09:58 Order name: Urine Microscopic Only; Complete Time: 11:19 bd 01/20 09:58 Order name: Urine Culture bd 01/20 10:02 Order name: CBC with Diff; Complete Time: 12:44 [facility] 01/20 10:02 Order name: CMP; Complete Time: 12:44 [facility] 01/20 10:02 Order name: Troponin High Sensitivity; Complete Time: 12:44 [facility] 01/20 09:51 Order name: Urine Dipstick-Ancillary (obtain specimen); Complete Time: 10:40 [facility] 01/20 09:51 Order name: Urine Test (obtain specimen); Complete Time: 10:40 [facility] 01/20 10:02 Order name: EKG - Nurse/Tech; Complete Time: 10:50 [facility] 01/20 12:20 Order name: CT Abd/Pelvis - Without Contrast; Complete Time: 13:13 ss Administered Medications: 10:14 Drug: Lidoderm Patch 5 % (700 mg/patch) 1 patches Route: Topical; Site: affected area; ap3 13:16 Follow up: Response: Pain is decreased ap3 13:25 Drug: Ketorolac 15 mg Route: IVP; Site: right upper arm; ap3 14:03 Follow up: Response: No adverse reaction; Pain is decreased ap3 Disposition Summary: 01/20/22 13:39 Discharge Ordered Location: Home sd2 Problem: new sd2 Symptoms: have improved sd2 Condition: Stable sd2 Diagnosis - Right low back pain sd2 - Abnormal outpatient lab test sd2 Followup: sd2 - With: Private Physician - When: 2 - 3 days - Reason: Recheck today's complaints, Continuance of care, Re-evaluation by your physician Discharge Instructions: - Discharge Summary Sheet jmm - Acute Back Pain, Adult sd2 - Back Exercises sd2 Forms: - Medication Reconciliation Form sd2 - Thank You Letter sd2 - Antibiotic Education sd2 - Prescription Opioid Use sd2 Prescriptions: - Lidocaine Pain Relief - apply 1 patch by TRANSDERMAL route once daily . as needed. You may leave on for jmm up to 12 hours at a time.; 10 patch; Refills: 0, Product Selection Permitted - Naprosyn 500 mg Oral Tablet - take 1 tablet by ORAL route 2 times per day take with food; 30 tablet; Refills: sd2 0, Product Selection Permitted - methocarbamol 750 mg Oral Tablet - take 1 tablet by ORAL route every 8 hours as needed; 15 tablet; Refills: 0, sd2 Product Selection Permitted Signatures: Dispatcher [employer] Tameka Malhotra RN RN ap3 Raya Razo RN RN jh5 Dilma Perdue MD MD sd2
--- NOTE | 2022-01-20 13:39 | ER ---
Nurse's Notes [facility] Name: Debbi Soto Age: 66 yrs Sex: Female : 1955 Arrival Date: 01/20/2022 Time: 08:45 Bed 12 Private MD: Diagnosis: Right low back pain;Abnormal outpatient lab test Presentation: 01/20 09:15 Chief complaint: Patient states: evening back pain started. Pt had dr mckeon appointment yesterday and told her it might be her kidneys and she needs to come to ER. Coronavirus screen: Vaccine status: Patient reports receiving the 2nd dose of the covid vaccine. Client denies travel out of the [place] in the last 14 days. Ebola Screen: Patient negative for fever greater than or equal to 101.5 degrees Fahrenheit, and additional compatible Ebola Virus Disease symptoms Patient denies exposure to infectious person. Patient denies travel to an Ebola-affected area in the 21 days before illness onset. Initial Sepsis Screen: Does the patient meet any 2 criteria? No. Patient's initial sepsis screen is negative. Does the patient have a suspected source of infection? No. Patient's initial sepsis screen is negative. Risk Assessment: Do you want to hurt yourself or someone else? Patient reports no desire to harm self or others. Onset of symptoms was January 15, 2022. 09:15 Method Of Arrival: Ambulatory [facility] 09:15 Acuity: GONSALO 3 [facility] Triage Assessment: 09:19 General: Appears uncomfortable, obese, Behavior is calm, cooperative, appropriate for [facility] age. Pain: Complains of pain in back. Musculoskeletal: Circulation, motion, and sensation intact. Capillary refill < 3 seconds, Range of motion: intact in all extremities. Historical: - Allergies: 09:19 Morphine; 5 - PMHx: 09:19 Sleep Apnea; Hyperlipidemia; Hypertension; Diabetes mellitus; [facility] - Immunization history:: Adult Immunizations up to date. - Social history:: Smoking status: Patient denies any tobacco usage or history of. Screenin:53 Abuse screen: Denies threats or abuse. Nutritional screening: No deficits noted. ap3 Tuberculosis screening: No symptoms or risk factors identified. 10:53 Fall Risk No fall in past 12 months (0 pts). No secondary diagnosis (0 pts). IV access ap3 (20 points). Ambulatory Aid- None/Bed Rest/Nurse Assist (0 pts). Gait- Impaired (20 pts.). Mental Status- Oriented to own ability (0 pts). Total Chiang Fall Scale indicates Low Risk Score (25-44 pts). Fall prevention measures have been instituted. Side Rails Up X 2 Placed close to Nursing Station Frequent Obs/Assesments occuring As available Patient and Family Educated on Fall Prevention Program and strategies. Assessment: 10:59 General: Appears uncomfortable, Behavior is calm, cooperative. Pain: Complains of pain ap3 in right low back Pain began 2-3 days ago. Neuro: Level of Consciousness is awake, alert, obeys commands, Oriented to person, place, time, situation, Gait is steady. Cardiovascular: Patient's skin is warm and dry. Respiratory: Airway is patent Respiratory effort is even, unlabored. Musculoskeletal: Reports pain in right low back. 11:45 Reassessment: Attempted to obtain labs from R hand x2. Unsuccessful attempts. Pressure ss dressing in place. Pt tolerated well. Called phlebotomy who states they will add patient to the "to be collected" list. 12:05 Reassessment: Patient and/or family updated on plan of care and expected duration. Pain ap3 level reassessed. Patient is alert, oriented x 3, equal unlabored respirations, skin warm/dry/pink. 13:17 Reassessment: Patient and/or family updated on plan of care and expected duration. Pain ap3 level reassessed. Patient is alert, oriented x 3, equal unlabored respirations, skin warm/dry/pink. Vital Signs: 09:15 BP 136 / 79; Pulse 79; Resp 16; Temp 98.6; Pulse Ox 98% on R/A; Weight 117.93 kg; jh5 Height 5 ft. 0 in. (152.40 cm); Pain 10/10; 09:15 Body Mass Index 50.78 (117.93 kg, 152.40 cm) 5 ED Course: 08:45 Patient arrived in ED. rg4 08:52 Dilma Perdue MD is Attending Physician. sd2 09:19 Triage completed. jh5 09:19 Arm band placed on right wrist. jh5 09:54 Tameka Ortega, YOLANDA is Primary Nurse. ap3 10:40 Urine Culture Sent. kc6 10:40 Urine Microscopic Only Sent. kc6 10:53 Patient has correct armband on for positive identification. Bed in low position. Call ap3 light in reach. Side rails up X 1. Pulse ox on. NIBP on. Door closed. Noise minimized. 10:53 Inserted saline lock: 22 gauge in right upper arm, using aseptic technique. ap3 12:58 CT Abd/Pelvis - Without Contrast In Process Unspecified. EDMS 14:02 No provider procedures requiring assistance completed. intact, bleeding controlled, No ap3 redness/swelling at site. Pressure dressing applied. Administered Medications: 10:14 Drug: Lidoderm Patch 5 % (700 mg/patch) 1 patches Route: Topical; Site: affected area; ap3 13:16 Follow up: Response: Pain is decreased ap3 13:25 Drug: Ketorolac 15 mg Route: IVP; Site: right upper arm; ap3 14:03 Follow up: Response: No adverse reaction; Pain is decreased ap3 Medication: 10:53 VIS not applicable for this client. ap3 Outcome: 13:39 Discharge ordered by . sd2 14:02 Discharged to home ambulatory. ap3 14:02 Condition: good 14:02 Discharge instructions given to patient, Instructed on discharge instructions, follow up and referral plans. medication usage, Demonstrated understanding of instructions, follow-up care, medications, Prescriptions given X 3. 14:03 Patient left the ED. ap3 Signatures: Dispatcher [employer] EDNE Amanda Gupta RN RN ss Garcia, Rubi rg4 Tameka Ortega RN RN ap3 Raya Razo RN RN 5 Dilma Perdue MD MD sd2 Jemma Frausto kc6
[2022-01-21 16:29] VITALS: BP 136/79; TEMP 98.6; O2SAT 98
--- NOTE | 2022-01-22 13:42 | EKG ---
Test Date: 2022-01-20 Test Time: 10:50:[address] Mail [employer]rier: BOB MEASUREMENT RESULTS: Intervals: Rate: 67 MS: 180 QRSD: 82 QT: 402 QTc: 424 [place]: P: 38 MS: 180 QRS: 69 T: -1 INTERPRETIVE STATEMENTS: Normal sinus rhythm Nonspecific ST and T wave abnormality Abnormal ECG Compared to ECG 02/06/2017 07:34:57 ST (T wave) deviation now present T-wave abnormality no longer present Electronically Signed On 01-22-22 13:39:12 CDT by Adi Parr
== END 2022-01-20 14:03 | disposition home or self-care (01) ==
LOC: ER 08:43
DX: M54.50 Low back pain, unspecified (principal); R79.9 Abnormal finding of blood chemistry, unspecified; Z88.5 Allergy status to narcotic agent
CPT/HCPCS: 87088; 85025; 87086; 36415; 84484; 80053; 74176; J2001; 81003; 81015; 87077; 87186; 93005; 96374; 99284

== ENCOUNTER 2022-11-16 09:23 | Emergency (ER) | payer OTHER ==
[2022-11-16] MEDS ORDERED: HYDROCODONE/APAP 7.5/325 MG TAB ONE (09:49)
--- OUTSIDE RECORDS SUMMARY | 2022-11-16 15:45 | XMS REPORT | Continuity of Care Document ---
:1955 Author Organization [facility] t Address [address] [place] [address] Care Team Providers Name Role Phone SHAGGY WINSLOW Primary Care Physician Unavailable DOMINIC LANDEROS Attending Clinician Unavailable CINTHYA DUARTE Attending Clinician Unavailable CINTHYA DUARTE Attending Clinician Unavailable DESIREE BOUDREAUX K.H. Attending Clinician Unavailable Janusz TREJO, Sendmindy K.H. Attending Clinician Doctor Unassigned, [place] Attending Clinician Unavailable Jing Mg Attending Clinician Dominic Landeros MD Attending Clinician Alejandra Nice MD Attending Clinician Lab, Ang - Db Attending Clinician Unavailable JING CONN Attending Clinician Unavailable Shaggy Winslow MD Attending Clinician Dany Perez Attending Clinician 2, Adc Lab Attending Clinician Unavailable Krystina Tejeda MD Attending Clinician KRYSTINA TEJEDA Attending Clinician Unavailable Julia Garcia DO Attending Clinician Michael Santiago MD Attending Clinician ATAMICHAEL GRACE Attending Clinician Unavailable MICHAEL SANTIAGO Attending Clinician Unavailable 1, Ad[facility] Sleep Lab Bed Attending Clinician Unavailable Only, Adc Test Attending Clinician Unavailable Leigh Hill PT Attending Clinician Unavailable Pob, Adc Lab Main Attending Clinician Unavailable Nurse, Adc Fam Attending Clinician Unavailable Eran Coffman DO Attending Clinician ERAN COFFMAN Attending Clinician Unavailable Nurse, Adc Pob Immunization Attending Clinician Unavailable Tech, Adc Sleep Lab Attending Clinician Unavailable SHAGGY WINSLOW Attending Clinician Unavailable ZI HERZOG Attending Clinician Unavailable Pc, Adc Echo Room 1 - Attending Clinician Unavailable Promise Martinez MD Attending Clinician Lab, Adc Fam Pob I Attending Clinician Unavailable Rosie Spain Attending Clinician [phone] DOMINIC LANDEROS Admitting Clinician Unavailable CINTHYA DUARTE Admitting Clinician Unavailable KRYSTINA TEJEDA Admitting Clinician Unavailable Dominic Landeros MD Admitting Clinician Payers Payer Name Policy Type Policy Number Effective Date Expiration Date Masoud jackson [facility] DUAL [id number] 2020 COMP HMO D SNP 00:00:00 [place]ICAID [place] [id number] 2019 00:00:00 Problems Condition Condition Condition Status Onset Resolution Last Treating Co mments Source Name Details Category Date Date Treatment Clinician Date 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 obstructiv obstructiv 1-22 it y of e sleep e sleep 00:00: [place] [facility] Osteopenia Osteopenia Disease Active 2020-05 U nivers 0-29 ity of 00:00: [address] Microscopi Microscopi Disease Active 2020-05 U nivers c c 0-22 ity of hematuria hematuria 00[facility]00[facility] Vitamin D Vitamin D Disease Active 2019-05 Uni vers deficiency deficiency 0-25 it y of 00:00: [address] Abnormal Abnormal Disease Active 2019-05 Unive rs EKG EKG 0-21 ity of 00:00: [address] Chronic Chronic Disease Active Univers constipati constipati 4-23 it y of on on 00:00: [place] 00 Medical Branch Urinary Urinary Disease Active 2018-05 Univers incontinen incontinen 1- it y of ce, ce, 00:00: [place] unspecifie unspecifie 00 Me dical d type d type Branch Prediabete Prediabete Disease Active 2018-05 U nivers s s 0-30 ity of 00:00: Medical Branch Fatty Fatty Disease Active 2018-05 Univers liver liver 0-28 ity of 00:00: 00 Medical Branch Essential Essential Disease Active Uni vers hypertensi hypertensi 8- it y of on, benign on, benign 00:00: [place] Hyperchole Hyperchole Disease Active U nivers sterolemia sterolemia 12-21 it y of 00:00: 00 Medical Branch [...] MORPHINE DRUG Active Other-Cmnt Univ ers INGREDI 4- ity of 00:00: [place] 00 Medical Branch Morphine Drug Active Other - See Pt states Univers Intolera comments 08-25 that ity of nce 00:00: Morphine [place] 00 makes Medical pt's pain Branch worse. Social History Social Habit Start Date Stop Date Quantity Comments Source Gender identity [facility]it y of [facility] Sexual orientation Univer sity of [facility] Exposure to 2022-08-29 2022-09-08 Not sure University SARS-CoV-2 (event) 00:00:00 09:06:00 [facility] Alcohol intake 2022-09-08 2022-09-08 Current University of 00:00:00 00:00:00 non-drinker of [facility] alcohol Branch (finding) History of Social 2021-12-15 2021-12-15 Univers ity of function 00:00:00 00:00:00 [facility] Tobacco use and 2021-12-15 2021-12-15 Smokeless Universit y of exposure 00:00:00 00:00:00 tobacco non-user [facility] dical Branch Sex [birth year] Universit y of 00:00:00 00:00:00 [facility] Smoking Status Start Date Stop Date Source Never smoked tobacco [facility] Medications Ordered Filled Start Stop Current Ordering Indication Dosage Frequency Signature Comments Components Source Medication Medication Date Date Medication? Clinician (SIG) Name Name evolocumab Yes [id number] Inject 1 Univers (REPATHA 7-12 104 ml ity of SURECLICK) 00:00: [place] 140 mg/mL 00 usly q 2 Medica l PnIj weeks Branch atorvastati Yes Take 1 Univ ers n 80 mg 7-12 tablet ity of tablet 00:00: every [place] night [facility] evolocumab Yes [id number] Inject 1 Univers (REPATHA 7-12 104 ml ity of SURECLICK) 00:00: [place] 140 mg/mL 00 usly q 2 Medica l PnIj weeks [place] atorvastati Yes Take 1 Univ ers n 80 mg 7-12 tablet ity of tablet 00:00: every [place] night [facility] Branch evolocumab Yes [id number] Inject 1 Univers (REPATHA 7-12 104 ml ity of SURECLICK) 00:00: [place] 140 mg/mL 00 usly q 2 Medica l PnIj weeks [place] atorvastati Yes Take 1 Univ ers n 80 mg 7-12 tablet ity of tablet 00:00: every [place] [facility] metFORMIN Yes [id number] 500mg Take 1 Univers 500 mg 5-09 tablet by ity of tablet 00:00: mouth in [place] the Medical morning. Branch semaglutide Yes [id number] .25mg inject Univers , weight 5-09 0.25 mg ity of loss, 0.25 00:00: [place] the [place] mg/0.5 mL 00 skin Medical PnIj SC weekly. Branch injection metFORMIN Yes [id number] 500mg Take 1 Univers 500 mg 5-09 tablet by ity of tablet 00:00: mouth in [place] the Medical morning. Branch semaglutide Yes [id number] .25mg inject Univers , weight 5-09 0.25 mg ity of loss, 0.25 00:00: [place] the [place] mg/0.5 mL 00 skin Medical PnIj [place] weekly. Branch injection metFORMIN 2022-0 Yes [id number] 500mg Take 1 Univers 500 mg 5-09 tablet by ity of tablet 00:00: mouth in [place] 00 the Medical morning. Branch semaglutide 3-0 Yes [id number] .25mg inject Univers , weight 5-09 0.25 mg ity of loss, 0.25 00:00: under the [place] mg/0.5 mL 00 skin Medical PnIj SC weekly. Branch injection metFORMIN 2022-0 Yes [id number] 500mg Take 1 Univers 500 mg 5-09 tablet by ity of tablet 00:00: mouth in [place] the Medical morning. Branch semaglutide 2022-0 Yes [id number] .25mg inject Univers , weight 5-09 0.25 mg ity of loss, 0.25 00:00: under the [place] mg/0.5 mL 00 skin Medical PnIj SC weekly. Branch injection metFORMIN 2022-0 Yes [id number] 500mg Take 1 Univers 500 mg 5-09 tablet by ity of tablet 00:00: mouth in [place] the Medical morning. Branch semaglutide 2022-0 Yes [id number] .25mg inject Univers , weight 5-09 0.25 mg ity of loss, 0.25 00:00: under the [place] mg/0.5 mL 00 skin Medical PnIj [place] weekly. Branch injection metFORMIN 2022-0 Yes [id number] 500mg Take 1 Univers 500 mg 5-09 tablet by ity of tablet 00:00: mouth in [place] the Medical morning. Branch semaglutide 3-0 Yes [id number] .25mg inject Univers , weight 5-09 0.25 mg ity of loss, 0.25 00:00: under the [place] mg/0.5 mL 00 skin Medical PnIj SC weekly. Branch injection metFORMIN 3-0 Yes [id number] 500mg Take 1 Univers 500 mg 5-09 tablet by ity of tablet 00:00: mouth in [place] the Medical morning. Branch semaglutide 2023-0 Yes [id number] .25mg inject Univers , weight 5-09 0.25 mg ity of loss, 0.25 00:00: under the [place] mg/0.5 mL 00 skin Medical PnIj [place] weekly. Branch injection metFORMIN 2022-0 Yes [id number] 500mg Take 1 Univers 500 mg 5-09 tablet by ity of tablet 00:00: mouth in [place] the Medical morning. Branch semaglutide 2022-0 Yes [id number] .25mg inject Univers , weight 5-09 0.25 mg ity of loss, 0.25 00:00: under the [place] mg/0.5 mL 00 skin Medical PnIj SC weekly. Branch injection metFORMIN 2022-0 Yes [id number] 500mg Take 1 Univers 500 mg 5-09 tablet by ity of tablet 00:00: mouth in [place] the morning. Branch semaglutide 2022-0 Yes [id number] .25mg inject Univers , weight 5-09 0.25 mg ity of loss, 0.25 00:00: under the [place] mg/0.5 mL 00 skin Medical PnIj [place] weekly. Branch injection metFORMIN 2022-0 Yes [id number] 500mg Take 1 Univers 500 mg 5-09 tablet by ity of tablet 00:00: mouth in [place] the morning. Branch semaglutide 2022-0 Yes [id number] .25mg inject Univers , weight 5-09 0.25 mg ity of loss, 0.25 00:00: [place] the [place] mg/0.5 mL 00 skin Medical PnIj [place] weekly. Branch injection NIFEDIPINE 2022-0 Yes [id number] TAKE 1 U nivers XL 30 mg 24 4-28 TABLET BY ity of hr tablet 00:00: MOUTH IN [facility] THE [facility] MORNING Branch AND 1 TABLET IN THE EVENING. DO ALL THIS FOR 90 DAYS. NIFEDIPINE 2022-0 Yes [id number] TAKE 1 U nivers XL 30 mg 24 4-28 TABLET BY ity of hr tablet 00:00: MOUTH IN [facility] THE MORNING Branch AND 1 TABLET IN THE EVENING. DO ALL THIS FOR 90 DAYS. NIFEDIPINE 2022-0 Yes [id number] TAKE 1 U nivers XL 30 mg 24 4-28 TABLET BY ity of hr tablet 00:00: MOUTH IN [facility] THE [facility] MORNING Branch AND 1 TABLET IN THE EVENING. DO ALL THIS FOR 90 DAYS. NIFEDIPINE 2022-0 Yes [id number] TAKE 1 U nivers XL 30 mg 24 4-28 TABLET BY ity of hr tablet 00:00: [place] THE Medical MORNING Branch AND 1 TABLET IN THE EVENING. DO ALL THIS FOR 90 DAYS. NIFEDIPINE 3-0 Yes [id number] TAKE 1 U nivers XL 30 mg 24 4-28 TABLET BY ity of hr tablet 00:00: [place] THE Medical MORNING Branch AND 1 TABLET IN THE EVENING. DO ALL THIS FOR 90 DAYS. NIFEDIPINE 3-0 Yes [id number] TAKE 1 U nivers XL 30 mg 24 4-28 TABLET BY ity of hr tablet 00:00: [place] THE Medical MORNING Branch AND 1 TABLET IN THE EVENING. DO ALL THIS FOR 90 DAYS. NIFEDIPINE 2022-0 Yes [id number] TAKE 1 U nivers XL 30 mg 24 4-28 TABLET BY ity of hr tablet 00:00: [place] THE Medical MORNING Branch AND 1 TABLET IN THE EVENING. DO ALL THIS FOR 90 DAYS. NIFEDIPINE 2022-0 Yes [id number] TAKE 1 U nivers XL 30 mg 24 4-28 TABLET BY ity of hr tablet 00:00: [place] THE Medical MORNING Branch AND 1 TABLET IN THE EVENING. DO ALL THIS FOR 90 DAYS. NIFEDIPINE 2022-0 Yes [id number] TAKE 1 U nivers XL 30 mg 24 4-28 TABLET BY ity of hr tablet 00:00: [place] THE Medical MORNING Branch AND 1 TABLET IN THE EVENING. DO ALL THIS FOR 90 DAYS. NIFEDIPINE 2022-0 Yes [id number] TAKE 1 U nivers XL 30 mg 24 4-28 TABLET BY ity of hr tablet 00:00: [place] THE Medical MORNING Branch AND 1 TABLET IN THE EVENING. DO ALL THIS FOR 90 DAYS. NIFEDIPINE 3-0 Yes [id number] TAKE 1 U nivers XL 30 mg 24 4-28 TABLET BY ity of hr tablet 00:00: [place] THE Medical MORNING Branch AND 1 TABLET IN THE EVENING. DO ALL THIS FOR 90 DAYS. NIFEDIPINE 3-0 Yes [id number] TAKE 1 U nivers XL 30 mg 24 4-28 TABLET BY ity of hr tablet 00:00: [place] THE Medical MORNING Branch AND 1 TABLET IN THE EVENING. DO ALL THIS FOR 90 DAYS. mirabegron 2023-0 Yes [id number] TAKE 1 U nivers (MYRBETRIQ) 3-07 TABLET BY ity of 50 mg 00:00: MOUTH [place] tablet 00 EVERY DAY Medical IN THE [place] MORNING mirabegron Yes [id number] TAKE 1 U nivers (MYRBETRIQ) 3-07 TABLET BY ity of 50 mg 00:00: MOUTH [place] tablet 00 EVERY DAY Medical IN THE [facility] mirabegron Yes [id number] TAKE 1 U nivers (MYRBETRIQ) 3-07 TABLET BY ity of 50 mg 00:00: MOUTH [place] tablet 00 EVERY DAY Medical IN THE [facility] mirabegron Yes [id number] TAKE 1 U nivers (MYRBETRIQ) 3-07 TABLET BY ity of 50 mg 00:00: MOUTH [place] tablet 00 EVERY DAY Medical IN THE [facility] mirabegron Yes [id number] TAKE 1 U nivers (MYRBETRIQ) 3-07 TABLET BY ity of 50 mg 00:00: MOUTH [place] tablet 00 EVERY DAY Medical IN THE [facility] mirabegron Yes [id number] TAKE 1 U nivers (MYRBETRIQ) 3-07 TABLET BY ity of 50 mg 00:00: MOUTH [place] tablet 00 EVERY DAY Medical IN THE [facility] mirabegron Yes [id number] TAKE 1 U nivers (MYRBETRIQ) 3-07 TABLET BY ity of 50 mg 00:00: MOUTH [place] tablet 00 EVERY DAY Medical IN THE [facility] mirabegron Yes [id number] TAKE 1 U nivers (MYRBETRIQ) 3-07 TABLET BY ity of 50 mg 00:00: MOUTH [place] tablet 00 EVERY DAY Medical IN THE [facility] mirabegron Yes [id number] TAKE 1 U nivers (MYRBETRIQ) 3-07 TABLET BY ity of 50 mg 00:00: MOUTH [place] tablet 00 EVERY DAY Medical IN THE [facility] mirabegron Yes [id number] TAKE 1 U nivers (MYRBETRIQ) 3-07 TABLET BY ity of 50 mg 00:00: MOUTH [place] tablet 00 EVERY DAY Medical IN THE [facility] mirabegron Yes [id number] TAKE 1 U nivers (MYRBETRIQ) 3-07 TABLET BY ity of 50 mg 00:00: MOUTH [place] tablet 00 EVERY DAY Medical IN THE [place] MORNING mirabegron 2022-0 Yes [id number] TAKE 1 U nivers (MYRBETRIQ) 3-07 TABLET BY ity of 50 mg 00:00: MOUTH [place] tablet 00 EVERY DAY Medical IN THE [place] MORNING mirabegron 0 Yes [id number] TAKE 1 U nivers (MYRBETRIQ) 3-07 TABLET BY ity of 50 mg 00:00: MOUTH [place] tablet 00 EVERY DAY Medical IN THE [place] MORNING mirabegron 0 Yes [id number] TAKE 1 U nivers (MYRBETRIQ) 3-07 TABLET BY ity of 50 mg 00:00: MOUTH [place] tablet 00 EVERY DAY Medical IN THE [place] MORNING mirabegron 0 Yes [id number] TAKE 1 U nivers (MYRBETRIQ) 3-07 TABLET BY ity of 50 mg 00:00: MOUTH [place] tablet 00 EVERY DAY Medical IN THE [place] MORNING mirabegron 0 Yes [id number] TAKE 1 U nivers (MYRBETRIQ) 3-07 TABLET BY ity of 50 mg 00:00: MOUTH [place] tablet 00 EVERY DAY Medical IN THE [place] MORNING LOSARTAN 50 2022-0 Yes [id number] 50mg TAKE 1 U nivers mg tablet 3-06 TABLET BY ity o f 00:00: MOUTH IN [place] 00 THE [facility] MORNING Branch AND 1 TABLET IN THE EVENING. LOSARTAN 50 2022-0 Yes [id number] 50mg TAKE 1 U nivers mg tablet 3-06 TABLET BY ity o f 00:00: MOUTH IN [place] 00 THE Medical MORNING Branch AND 1 TABLET IN THE EVENING. LOSARTAN 50 2022-0 Yes [id number] 50mg TAKE 1 U nivers mg tablet 3-06 TABLET BY ity o f 00:00: MOUTH IN [place] 00 THE Medical MORNING Branch AND 1 TABLET IN THE EVENING. LOSARTAN 50 3-0 Yes [id number] 50mg TAKE 1 U nivers mg tablet 3-06 TABLET BY ity o f 00:00: MOUTH IN [place] 00 THE Medical MORNING Branch AND 1 TABLET IN THE EVENING. LOSARTAN 50 3-0 Yes [id number] 50mg TAKE 1 U nivers mg tablet 3-06 TABLET BY ity o f 00:00: MOUTH IN [place] 00 THE Medical MORNING Branch AND 1 TABLET IN THE EVENING. LOSARTAN 50 3-0 Yes [id number] 50mg TAKE 1 U nivers mg tablet 3-06 TABLET BY ity o f 00:00: MOUTH IN [place] 00 THE Medical MORNING Branch AND 1 TABLET IN THE EVENING. LOSARTAN 50 3-0 Yes [id number] 50mg TAKE 1 U nivers mg tablet 3-06 TABLET BY ity o f 00:00: MOUTH IN [place] 00 THE Medical MORNING Branch AND 1 TABLET IN THE EVENING. LOSARTAN 50 3-0 Yes [id number] 50mg TAKE 1 U nivers mg tablet 3-06 TABLET BY ity o f 00:00: MOUTH IN [place] 00 THE Medical MORNING Branch AND 1 TABLET IN THE EVENING. LOSARTAN 50 3-0 Yes [id number] 50mg TAKE 1 U nivers mg tablet 3-06 TABLET BY ity o f 00:00: MOUTH IN [place] 00 THE Medical MORNING Branch AND 1 TABLET IN THE EVENING. LOSARTAN 50 3-0 Yes [id number] 50mg TAKE 1 U nivers mg tablet 3-06 TABLET BY ity o f 00:00: MOUTH IN [place] 00 THE Medical MORNING Branch AND 1 TABLET IN THE EVENING. LOSARTAN 50 2022-0 Yes [id number] 50mg TAKE 1 U nivers mg tablet 3-06 TABLET BY ity o f 00:00: MOUTH IN [place] 00 THE Medical MORNING Branch AND 1 TABLET IN THE EVENING. LOSARTAN 50 3-0 Yes [id number] 50mg TAKE 1 U nivers mg tablet 3-06 TABLET BY ity o f 00:00: MOUTH IN [place] 00 THE Medical MORNING Branch AND 1 TABLET IN THE EVENING. LOSARTAN 50 3-0 Yes [id number] 50mg TAKE 1 U nivers mg tablet 3-06 TABLET BY ity o f 00:00: MOUTH IN [place] 00 THE Medical MORNING Branch AND 1 TABLET IN THE EVENING. LOSARTAN 50 3-0 Yes [id number] 50mg TAKE 1 U nivers mg tablet 3-06 TABLET BY ity o f 00:00: MOUTH IN [place] 00 THE Medical MORNING Branch AND 1 TABLET IN THE EVENING. LOSARTAN 50 3-0 Yes [id number] 50mg TAKE 1 U nivers mg tablet 3-06 TABLET BY ity o f 00:00: MOUTH IN [place] 00 THE Medical MORNING Branch AND 1 TABLET IN THE EVENING. LOSARTAN 50 3-0 Yes [id number] 50mg TAKE 1 U nivers mg tablet 3-06 TABLET BY ity o f 00:00: MOUTH IN [place] 00 THE Medical MORNING Branch AND 1 TABLET IN THE EVENING. LOSARTAN 50 2022-0 Yes [id number] 50mg TAKE 1 U nivers mg tablet 3-06 TABLET BY ity o f 00:00: MOUTH IN [place] 00 THE Medical MORNING Branch AND 1 TABLET IN THE EVENING. ATORVASTATI 2022-0 Yes TAKE 1 Univ ers N 80 mg 3-03 TABLET BY ity of tablet 00:00: MOUTH [place] 00 EVERYDAY Medical AT BEDTIME Branch ATORVASTATI 2022-0 Yes TAKE 1 Univ ers N 80 mg 3-03 TABLET BY ity of tablet 00:00: MOUTH 00 EVERYDAY Medical AT BEDTIME Branch ATORVASTATI 2022-0 Yes TAKE 1 Univ ers N 80 mg 3-03 TABLET BY ity of tablet 00:00: MOUTH 00 EVERYDAY Medical AT BEDTIME Branch ATORVASTATI 2022-0 Yes TAKE 1 Univ ers N 80 mg 3-03 TABLET BY ity of tablet 00:00: MOUTH 00 EVERYDAY Medical AT BEDTIME Branch ATORVASTATI 2022-0 Yes TAKE 1 Univ ers N 80 mg 3-03 TABLET BY ity of tablet 00:00: MOUTH 00 EVERYDAY Medical AT BEDTIME Branch ATORVASTATI 2022-0 Yes TAKE 1 Univ ers N 80 mg 3-03 TABLET BY ity of tablet 00:00: MOUTH 00 EVERYDAY Medical AT BEDTIME Branch ATORVASTATI 2022-0 Yes TAKE 1 Univ ers N 80 mg 3-03 TABLET BY ity of tablet 00:00: MOUTH 00 EVERYDAY Medical AT BEDTIME Branch ATORVASTATI 3-0 Yes TAKE 1 Univ ers N 80 mg 3-03 TABLET BY ity of tablet 00:00: MOUTH [place] 00 EVERYDAY Medical AT BEDTIME Branch ATORVASTATI 2022-0 Yes TAKE 1 Univ ers N 80 mg 3-03 TABLET BY ity of tablet 00:00: MOUTH 00 EVERYDAY Medical AT BEDTIME Branch ATORVASTATI 3-0 Yes TAKE 1 Univ ers N 80 mg 3-03 TABLET BY ity of tablet 00:00: MOUTH 00 EVERYDAY Medical AT BEDTIME Branch ATORVASTATI 2022-0 Yes TAKE 1 Univ ers N 80 mg 3-03 TABLET BY ity of tablet 00:00: MOUTH 00 EVERYDAY Medical AT BEDTIME Branch ATORVASTATI 2022-0 Yes TAKE 1 Univ ers N 80 mg 3-03 TABLET BY ity of tablet 00:00: MOUTH [place] 00 EVERYDAY Medical AT BEDTIME Branch ATORVASTATI 2022-0 Yes TAKE 1 Univ ers N 80 mg 3-03 TABLET BY ity of tablet 00:00: MOUTH [place] 00 EVERYDAY Medical AT BEDTIME Branch ATORVASTATI 2022-0 Yes TAKE 1 Univ ers N 80 mg 3-03 TABLET BY ity of tablet 00:00: MOUTH [place] 00 EVERYDAY Medical AT BEDTIME Branch ATORVASTATI 2022-0 Yes TAKE 1 Univ ers N 80 mg 3-03 TABLET BY ity of tablet 00:00: MOUTH [place] 00 EVERYDAY Medical AT BEDTIME Branch ATORVASTATI 2022-0 Yes TAKE 1 Univ ers N 80 mg 3-03 TABLET BY ity of tablet 00:00: MOUTH [place] 00 EVERYDAY Medical AT BEDTIME Branch ATORVASTATI 0 Yes TAKE 1 Univ ers N 80 mg 3-03 TABLET BY ity of tablet 00:00: MOUTH [place] 00 EVERYDAY Medical AT BEDTIME Branch ATORVASTATI 2022-0 2022- No TAKE 1 Uni vers N 80 mg 3-03 07-12 TABLET BY ity of tablet 00:00: 00:00 MOUTH [place] 00 :00 EVERYDAY Medical AT BEDTIME Branch metFORMIN 2022-0 Yes [id number] 500mg Take 1 Univers 500 mg 3-01 tablet by ity of tablet 00:00: mouth in [place] 00 the Medical morning Branch and 1 tablet in the evening. Take with meals. metFORMIN 3-0 Yes [id number] 500mg Take 1 Univers 500 mg 3-01 tablet by ity of tablet 00:00: mouth in [place] 00 the Medical morning Branch and 1 tablet in the evening. Take with meals. metFORMIN 3-0 Yes [id number] 500mg Take 1 Univers 500 mg 3-01 tablet by ity of tablet 00:00: mouth in [place] 00 the Medical morning Branch and 1 tablet in the evening. Take with meals. metFORMIN 3-0 Yes [id number] 500mg Take 1 Univers 500 mg 3-01 tablet by ity of tablet 00:00: mouth in [place] [address] the [facility] morning Branch and 1 tablet in the evening. Take with meals. metFORMIN 3-0 Yes [id number] 500mg Take 1 Univers 500 mg 3-01 tablet by ity of tablet 00:00: mouth in [address] and 1 tablet in the evening. Take with meals. metFORMIN 2023-0 Yes [id number] 500mg Take 1 Univers 500 mg 3-01 tablet by ity of tablet 00:00: mouth in [address] and 1 tablet in the evening. Take with meals. metFORMIN 2023-0 Yes [id number] 500mg Take 1 Univers 500 mg 3-01 tablet by ity of tablet 00:00: mouth in [address] and 1 tablet in the evening. Take with meals. metFORMIN 2023-0 Yes [id number] 500mg Take 1 Univers 500 mg 3-01 tablet by ity of tablet 00:00: mouth in [address] and 1 tablet in the evening. Take with meals. metFORMIN 2023-0 Yes [id number] 500mg Take 1 Univers 500 mg 3-01 tablet by ity of tablet 00:00: mouth in [address] and 1 tablet in the evening. Take with meals. metFORMIN 2023-0 Yes [id number] 500mg Take 1 Univers 500 mg 3-01 tablet by ity of tablet 00:00: mouth in [address] and 1 tablet in the evening. Take with meals. metFORMIN 2023-0 Yes [id number] 500mg Take 1 Univers 500 mg 3-01 tablet by ity of tablet 00:00: mouth in [address] and 1 tablet in the evening. Take with meals. metFORMIN 2023-0 Yes [id number] 500mg Take 1 Univers 500 mg 3-01 tablet by ity of tablet 00:00: mouth in [address] and 1 tablet in the evening. Take with meals. metFORMIN 2023-0 Yes [id number] 500mg Take 1 Univers 500 mg 3-01 tablet by ity of tablet 00:00: mouth in [address] and 1 tablet in the evening. Take with meals. metFORMIN 2023-0 Yes [id number] 500mg Take 1 Univers 500 mg 3-01 tablet by ity of tablet 00:00: mouth in [address] and 1 tablet in the evening. Take with meals. metFORMIN 2023-0 Yes [id number] 500mg Take 1 Univers 500 mg 3-01 tablet by ity of tablet 00:00: mouth in [place] 00 the Medical morning Branch and 1 tablet in the evening. Take with meals. metFORMIN 2023-0 Yes [id number] 500mg Take 1 Univers 500 mg 3-01 tablet by ity of tablet 00:00: mouth in [place] [address] the [facility] morning [place] and 1 tablet in the evening. Take with meals. metFORMIN 2023-0 Yes [id number] 500mg Take 1 Univers 500 mg 3-01 tablet by ity of tablet 00:00: mouth in [address] morning [place] and 1 tablet in the evening. Take with meals. metFORMIN 2023-0 Yes [id number] 500mg Take 1 Univers 500 mg 3-01 tablet by ity of tablet 00:00: mouth in [address] morning [place] and 1 tablet in the evening. Take with meals. metFORMIN 2023-0 Yes [id number] 500mg Take 1 Univers 500 mg 3-01 tablet by ity of tablet 00:00: mouth in [address] morning [place] and 1 tablet in the evening. Take with meals. metFORMIN 2023-0 Yes [id number] 500mg Take 1 Univers 500 mg 3-01 tablet by ity of tablet 00:00: mouth in [address] morning [place] and 1 tablet in the evening. Take with meals. metFORMIN 2023-0 Yes [id number] 500mg Take 1 Univers 500 mg 3-01 tablet by ity of tablet 00:00: mouth in [address] morning [place] and 1 tablet in the evening. Take with meals. metFORMIN 2023-0 Yes [id number] 500mg Take 1 Univers 500 mg 3-01 tablet by ity of tablet 00:00: mouth in [address] morning [place] and 1 tablet in the evening. Take with meals. metFORMIN 2023-0 Yes [id number] 500mg Take 1 Univers 500 mg 3-01 tablet by ity of tablet 00:00: mouth in [address] morning [place] and 1 tablet in the evening. Take with meals. metFORMIN 2023-0 Yes [id number] 500mg Take 1 [facility] 500 mg 3-01 tablet by ity of tablet 00:00: mouth in [address] morning [place] and 1 tablet in the evening. Take with meals. metFORMIN 2023-0 Yes [id number] 500mg Take 1 [facility] 500 mg 3-01 tablet by it[facility] of tablet 00:00: mouth in [address] morning [place] and 1 tablet in the evening. Take with meals. metFORMIN 2023-0 Yes [id number] 500mg Take 1 [facility] 500 mg 3-01 tablet by ity of tablet 00:00: mouth in [place] 00 the Medical morning Branch and 1 tablet in the evening. Take with meals. metFORMIN 2022- No [id number] 500mg Take 1 [facility] 500 mg 3- 05-09 tablet by ity of tablet 00:00: 00:00 mouth in [place] 00 :00 the Medical morning Branch and 1 tablet in the evening. Take with meals. metFORMIN 2022- No [id number] 500mg Take 1 [facility] 500 mg 3- 05- tablet by ity of tablet 00:00: 00:00 mouth in [place] 00 :00 the Medical morning Branch and 1 tablet in the evening. Take with meals. SAXENDA 3 Yes [id number] INJECT [facility] mg/0.5 mL 2-23 0.6MG ity of (18 mg/3 00:00: SUBCUTANEO [place] mL) PnIj 00 USLY EVERY Medic al MORNING. Branch INCREASE AT WEEKLY INTERVALS UNTIL TARGET DOSE OF 3MG SAXENDA 3 2022- No [id number] INJECT [facility] mg/0.5 mL 2-23 03-03 0.6MG ity of (18 mg/3 00:00: 00:00 [place] mL) PnIj 00 :00 USLY EVERY Medic al MORNING. Branch INCREASE AT WEEKLY INTERVALS UNTIL TARGET DOSE OF 3MG SAXENDA 3 2022- No [id number] INJECT [facility] mg/0.5 mL 2-23 03-03 0.6MG ity of (18 mg/3 00:00: 00:00 [place] mL) PnIj 00 :00 USLY EVERY Medic al MORNING. Branch INCREASE AT WEEKLY INTERVALS UNTIL TARGET DOSE OF 3MG SAXENDA 3 2022- No [id number] INJECT [facility] mg/0.5 mL 2-23 03-03 0.6MG ity of (18 mg/3 00:00: 00:00 [place] mL) PnIj 00 :00 USLY EVERY Medic al MORNING. Branch INCREASE AT WEEKLY INTERVALS UNTIL TARGET DOSE OF 3MG liraglutide Yes [id number] .6mg inject 0.6 [facility] , weight 2-22 mg under ity of loss, 3 00:00: the skin [place] mg/0.5 mL 00 in the Medical (18 mg/3 morning. Branch mL) PnIj Increase by 0.6 mg at weekly intervals until a target dose of 3 mg liraglutide 0 2023- No [id number] .6mg inject 0.6 [facility] , weight 2-22 02-23 mg under ity of loss, 3 00:00: 00:00 the skin [place] mg/0.5 mL 00 :00 in the Medical (18 mg/3 morning. Branch mL) PnIj Increase by 0.6 mg at weekly intervals until a target dose of 3 mg naltrexone- 2022-0 Yes [id number] Take one [facility] bupropion 2-06 tablet by ity o f (CONTRAVE) 00:00: mouth in [place] 8-90 mg per 00 the Medical tablet morning Branch for week 1, then one tablet twice a day for week 2 and on naltrexone- 2022-0 Yes [id number] Take one [facility] bupropion 2-06 tablet by ity o f (CONTRAVE) 00:00: mouth in [place] 8-90 mg per 00 the Medical tablet morning Branch for week 1, then one tablet twice a day for week 2 and on naltrexone- 3-0 Yes [id number] Take one [facility] bupropion 2-06 tablet by ity o f (CONTRAVE) 00:00: mouth in [place] 8-90 mg per 00 the Medical tablet morning Branch for week 1, then one tablet twice a day for week 2 and on naltrexone- 2022-0 Yes [id number] Take one [facility] bupropion 2-06 tablet by ity o f (CONTRAVE) 00:00: mouth in [place] 8-90 mg per 00 the Medical tablet morning Branch for week 1, then one tablet twice a day for week 2 and on naltrexone- 3-0 Yes [id number] Take one [facility] bupropion 2-06 tablet by ity o f (CONTRAVE) 00:00: mouth in [place] 8-90 mg per 00 the Medical tablet morning Branch for week 1, then one tablet twice a day for week 2 and on naltrexone- 2023-0 Yes [id number] Take one [facility] bupropion 2-06 tablet by ity o f (CONTRAVE) 00:00: mouth in [place] 8-90 mg per 00 the Medical tablet morning Branch for week 1, then one tablet twice a day for week 2 and on naltrexone- 2023-0 Yes [id number] Take one [facility] bupropion 2-06 tablet by ity o f (CONTRAVE) 00:00: mouth in [place] 8-90 mg per 00 the Medical tablet morning Branch for week 1, then one tablet twice a day for week 2 and on naltrexone- 2023-0 Yes [id number] Take one [facility] bupropion 2-06 tablet by ity o f (CONTRAVE) 00:00: mouth in [place] 8-90 mg per 00 the Medical tablet morning Branch for week 1, then one tablet twice a day for week 2 and on naltrexone- 2023-0 Yes [id number] Take one [facility] bupropion 2-06 tablet by ity o f (CONTRAVE) 00:00: mouth in [place] 8-90 mg per 00 the Medical tablet morning Branch for week 1, then one tablet twice a day for week 2 and on naltrexone- 2023-0 Yes [id number] Take one [facility] bupropion 2-06 tablet by ity o f (CONTRAVE) 00:00: mouth in [place] 8-90 mg per 00 the Medical tablet morning Branch for week 1, then one tablet twice a day for week 2 and on naltrexone- 2023-0 2023- No [id number] Take one [facility] bupropion 2-06 02-22 tablet by ity of (CONTRAVE) 00:00: 00:00 mouth in [place] 8-90 mg per 00 :00 the Medical tablet morning Branch for week 1, then one tablet twice a day for week 2 and on naltrexone- 2023-0 2023- No [id number] Take one [facility] bupropion 2-06 02-22 tablet by ity of (CONTRAVE) 00:00: 00:00 mouth in [place] 8-90 mg per 00 :00 the Medical tablet morning Branch for week 1, then one tablet twice a day for week 2 and on naltrexone- 2023-0 2023- No [id number] Take one [facility] bupropion 2-06 02-22 tablet by ity of (CONTRAVE) 00:00: 00:00 mouth in [place] 8-90 mg per 00 :00 the Medical tablet morning Branch for week 1, then one tablet twice a day for week 2 and on NIFEdipine 2023-0 Yes 30mg Take 30 mg [facility] n[facility] XL 30 mg 24 1-21 by mouth ity of hr tablet 00:00: in the [place] 00 morning Medical and 30 mg Branch in the evening. NIFEdipine 2023-0 Yes 30mg Take 30 mg [facility] n[facility] XL 30 mg 24 1-21 by mouth ity of hr tablet 00:00: in the [place] morning Medical and 30 mg Branch in the evening. NIFEdipine 2023-0 Yes 30mg Take 30 mg [facility] XL 30 mg 24 1-21 by mouth ity of hr tablet 00:00: in the [place] morning Medical and 30 mg Branch in the evening. NIFEdipine 2023-0 Yes 30mg Take 30 mg [facility] XL 30 mg 24 1-21 by mouth ity of hr tablet 00:00: in the [place] morning Medical and 30 mg Branch in the evening. NIFEdipine 2023-0 Yes 30mg Take 30 mg [facility] XL 30 mg 24 1-21 by mouth ity of hr tablet 00:00: in the [place] morning Medical and 30 mg Branch in the evening. NIFEdipine 2023-0 Yes 30mg Take 30 mg [facility] XL 30 mg 24 1-21 by mouth ity of hr tablet 00:00: in the [place] morning Medical and 30 mg Branch in the evening. NIFEdipine 2023-0 Yes 30mg Take 30 mg [facility] XL 30 mg 24 1-21 by mouth ity of hr tablet 00:00: in the [place] morning Medical and 30 mg Branch in the evening. NIFEdipine 2023-0 Yes 30mg Take 30 mg [facility] XL 30 mg 24 1-21 by mouth ity of hr tablet 00:00: in the [place] morning Medical and 30 mg Branch in the evening. NIFEdipine 2023-0 Yes 30mg Take 30 mg [facility] XL 30 mg 24 1-21 by mouth ity of hr tablet 00:00: in the [place] morning Medical and 30 mg Branch in the evening. NIFEdipine 2023-0 Yes 30mg Take 30 mg [facility] XL 30 mg 24 1-21 by mouth ity of hr tablet 00:00: in the [place] morning Medical and 30 mg Branch in the evening. NIFEdipine 2023-0 Yes 30mg Take 30 mg [facility] XL 30 mg 24 1-21 by mouth ity of hr tablet 00:00: in the [place] morning Medical and 30 mg Branch in the evening. NIFEdipine 2023-0 Yes 30mg Take 30 mg [facility] XL 30 mg 24 1-21 by mouth ity of hr tablet 00:00: in the [place] morning Medical and 30 mg Branch in the evening. NIFEdipine 2023-0 Yes 30mg Take 30 mg [facility] XL 30 mg 24 1-21 by mouth ity of hr tablet 00:00: in the [place] morning Medical and 30 mg Branch in the evening. NIFEdipine 2023-0 Yes 30mg Take 30 mg [facility] n[facility] XL 30 mg 24 1-21 by mouth ity of hr tablet 00:00: in the [place] morning Medical and 30 mg Branch in the evening. NIFEdipine 2023-0 Yes 30mg Take 30 mg [facility] XL 30 mg 24 1-21 by mouth ity of hr tablet 00:00: in the [place] morning Medical and 30 mg Branch in the evening. NIFEdipine 2023-0 Yes 30mg Take 30 mg [facility] XL 30 mg 24 1-21 by mouth ity of hr tablet 00:00: in the [place] morning Medical and 30 mg Branch in the evening. NIFEdipine 2023-0 Yes 30mg Take 30 mg [facility] XL 30 mg 24 1-21 by mouth ity of hr tablet 00:00: in the [place] morning Medical and 30 mg Branch in the evening. NIFEdipine 2023-0 Yes 30mg Take 30 mg [facility] XL 30 mg 24 1-21 by mouth ity of hr tablet 00:00: in the [place] morning Medical and 30 mg Branch in the evening. NIFEdipine 2023-0 Yes 30mg Take 30 mg [facility] XL 30 mg 24 1-21 by mouth ity of hr tablet 00:00: in the [place] morning Medical and 30 mg Branch in the evening. NIFEdipine 2023-0 Yes 30mg Take 30 mg [facility] XL 30 mg 24 1-21 by mouth ity of hr tablet 00:00: in the [place] morning Medical and 30 mg Branch in the evening. NIFEdipine 2023-0 Yes 30mg Take 1 [facility] rs XL 30 mg 24 1-21 tablet by ity of hr tablet 00:00: mouth in [facility] the Medical morning Branch and 1 tablet in the evening. NIFEdipine 2023-0 Yes 30mg Take 1 Un[facility] rs XL 30 mg 24 1-21 tablet by it[facility] of hr tablet 00:00: mouth in [place] 00 the Medical morning Branch and 1 tablet in the evening. NIFEdipine 2023-0 Yes 30mg Take 1 Un[facility] rs XL 30 mg 24 1-21 tablet by ity of hr tablet 00:00: mouth in [place] 00 the Medical morning Branch and 1 tablet in the evening. NIFEdipine 2023-0 Yes 30mg Take 1 [facility] rs XL 30 mg 24 1-21 tablet by it[facility] of hr tablet 00:00: mouth in [place] 00 the Medical morning Branch and 1 tablet in the evening. NIFEdipine 2023-0 Yes 30mg Take 1 [facility] rs XL 30 mg 24 1-21 tablet by it[facility] of hr tablet 00:00: mouth in [place] 00 the Medical morning Branch and 1 tablet in the evening. NIFEdipine 2023-0 Yes 30mg Take 1 [facility] rs XL 30 mg 24 1-21 tablet by it[facility] of hr tablet 00:00: mouth in [place] 00 the Medical morning Branch and 1 tablet in the evening. NIFEdipine 2023-0 Yes 30mg Take 1 [facility] rs XL 30 mg 24 1-21 tablet by it[facility] of hr tablet 00:00: mouth in [place] 00 the Medical morning Branch and 1 tablet in the evening. NIFEdipine 2023-0 2023- No 30mg Take 1 [facility] ers XL 30 mg 24 1-21 04-28 tablet by it y of hr tablet 00:00: 00:00 mouth in [place] 00 :00 the Medical morning Branch and 1 tablet in the evening. semaglutide 2021-05 Yes [id number] .25mg inject [facility] , weight 2-05 0.25 mg ity of loss, 0.25 00:00: under the [place] mg/0.5 mL 00 skin Medical PnIj [place] weekly. Branch injection Weeks through 8 inject 0.5 mg under the skin weekly semaglutide 2021-05 Yes [id number] .25mg inject [facility] , weight 2-05 0.25 mg ity of loss, 0.25 00:00: under the [place] mg/0.5 mL 00 skin Medical PnIj [place] weekly. Branch injection Weeks through 8 inject 0.5 mg under the skin weekly semaglutide 2021-05 Yes [id number] .25mg inject [facility] , weight 2-05 0.25 mg ity of loss, 0.25 00:00: under the [place] mg/0.5 mL 00 skin Medical PnIj [place] weekly. Branch injection Weeks through 8 inject 0.5 mg under the skin weekly semaglutide 2021-05 Yes [id number] .25mg inject [facility] , weight 2-05 0.25 mg ity of loss, 0.25 00:00: under the [place] mg/0.5 mL 00 skin Medical PnIj [place] weekly. Branch injection Weeks through 8 inject 0.5 mg under the skin weekly semaglutide 2021-05 Yes [id number] .25mg inject [facility] , weight 2-05 0.25 mg ity of loss, 0.25 00:00: under the [place] mg/0.5 mL 00 skin Medical PnIj [place] weekly. Branch injection Weeks through 8 inject 0.5 mg under the skin weekly semaglutide 2021-05 Yes [id number] .25mg inject [facility] , weight 2-05 0.25 mg ity of loss, 0.25 00:00: under the [place] mg/0.5 mL 00 skin Medical PnIj [place] weekly. Branch injection Weeks through 8 inject 0.5 mg under the skin weekly semaglutide 2021-05 Yes [id number] .25mg inject [facility] , weight 2-05 0.25 mg ity of loss, 0.25 00:00: under the [place] mg/0.5 mL 00 skin Medical PnIj [place] weekly. Branch injection Weeks through 8 inject 0.5 mg under the skin weekly semaglutide 2021-05 Yes [id number] .25mg inject [facility] , weight 2-05 0.25 mg ity of loss, 0.25 00:00: under the [place] mg/0.5 mL 00 skin Medical PnIj [place] weekly. Branch injection Weeks through 8 inject 0.5 mg under the skin weekly semaglutide 2021-05 Yes [id number] .25mg inject [facility] , weight 2-05 0.25 mg ity of loss, 0.25 00:00: under the [place] mg/0.5 mL 00 skin Medical PnIj [place] weekly. Branch injection Weeks 5 through 8 inject 0.5 mg under the skin weekly semaglutide 2021-053- No [id number] .25mg inject [facility] , weight 2-05 02-06 0.25 mg ity of loss, 0.25 00:00: 00:00 under the [place] mg/0.5 mL 00 :00 skin Medical PnIj [place] weekly. Branch injection Weeks 5 through 8 inject 0.5 mg under the skin weekly semaglutide 2021-05- No [id number] .25mg inject [facility] , weight 2- 02-06 0.25 mg ity of loss, 0.25 00:00: 00:00 under the [place] mg/0.5 mL 00 :00 skin Medical PnIj [place] weekly. Branch injection Weeks 5 through 8 inject 0.5 mg under the skin weekly semaglutide 2021-05- No [id number] .25mg inject [facility] , weight 2-06 0.25 mg ity of loss, 0.25 00:00: 00:00 under the [place] mg/0.5 mL 00 :00 skin Medical PnIj [place] weekly. Branch injection Weeks through inject 0.5 mg under the skin weekly LOSARTAN 50 2021-05 Yes [id number] TAKE 1 U nivers mg tablet 0-25 TABLET BY ity o f 00:00: MOUTH [place] 00 EVERY DAY Medical Branch losartan 50 2021-05 Yes [id number] 50mg Take 1 U nivers mg tablet 0-25 tablet by ity o f 00:00: mouth in [place] 00 the Medical morning Branch and 1 tablet in the evening. losartan 50 2021-05 Yes [id number] 50mg Take 1 U nivers mg tablet 0-25 tablet by ity o f 00:00: mouth in [place] 00 the Medical morning Branch and 1 tablet in the evening. losartan 50 2021-05 Yes [id number] 50mg Take 1 U nivers mg tablet 0-25 tablet by ity o f 00:00: mouth in [place] 00 the Medical morning Branch and 1 tablet in the evening. losartan 50 2021-05 Yes [id number] 50mg Take 1 [facility] nivers mg tablet 0-25 tablet by ity o f 00:00: mouth in [place] 00 the Medical morning Branch and 1 tablet in the evening. losartan 50 2021-05 Yes [id number] 50mg Take 1 U nivers mg tablet 0-25 tablet by ity o f 00:00: mouth in [place] 00 the Medical morning Branch and 1 tablet in the evening. losartan 50 2021-05 Yes [id number] 50mg Take 1 U nivers mg tablet 0-25 tablet by ity o f 00:00: mouth in [place] 00 the Medical morning Branch and 1 tablet in the evening. losartan 50 2021-05 Yes [id number] 50mg Take 1 U nivers mg tablet 0-25 tablet by ity o f 00:00: mouth in [place] 00 the Medical morning Branch and 1 tablet in the evening. losartan 50 2021-05 Yes [id number] 50mg Take 1 [facility]ivers mg tablet 0-25 tablet by ity o f 00:00: mouth in [place] 00 the Medical morning Branch and 1 tablet in the evening. losartan 50 2021-05 Yes [id number] 50mg Take 1 U nivers mg tablet 0-25 tablet by ity o f 00:00: mouth in [place] 00 the Medical morning Branch and 1 tablet in the evening. losartan 50 2021-05 Yes [id number] 50mg Take 1 U nivers mg tablet 0-25 tablet by ity o f 00:00: mouth in [place] 00 the Medical morning Branch and 1 tablet in the evening. losartan 50 2021-05 Yes [id number] 50mg Take 1 U nivers mg tablet 0-25 tablet by ity o f 00:00: mouth in [place] 00 the Medical morning Branch and 1 tablet in the evening. losartan 50 2021-05 Yes [id number] 50mg Take 1 U nivers mg tablet 0-25 tablet by ity o f 00:00: mouth in [place] 00 the Medical morning Branch and 1 tablet in the evening. losartan 50 2021-05 Yes [id number] 50mg Take 1 U nivers mg tablet 0-25 tablet by ity o f 00:00: mouth in [place] 00 the Medical morning Branch and 1 tablet in the evening. losartan 50 2021-05 Yes [id number] 50mg Take 1 U nivers mg tablet 0-25 tablet by ity o f 00:00: mouth in [place] 00 the Medical morning Branch and 1 tablet in the evening. losartan 50 2021-05 Yes [id number] 50mg Take 1 U nivers mg tablet 0-25 tablet by ity o f 00:00: mouth in [place] 00 the Medical morning Branch and 1 tablet in the evening. losartan 50 2021-05 Yes [id number] 50mg Take 1 U nivers mg tablet 0-25 tablet by ity o f 00:00: mouth in [place] 00 the Medical morning Branch and 1 tablet in the evening. losartan 50 2021-05 Yes [id number] 50mg Take 1 U nivers mg tablet 0-25 tablet by ity o f 00:00: mouth in [place] 00 the Medical morning Branch and 1 tablet in the evening. losartan 50 2021-05 Yes [id number] 50mg Take 1 U nivers mg tablet 0-25 tablet by ity o f 00:00: mouth in [place] 00 the Medical morning Branch and 1 tablet in the evening. losartan 50 2021-05 Yes [id number] 50mg Take 1 U nivers mg tablet 0-25 tablet by ity o f 00:00: mouth in [place] 00 the Medical morning Branch and 1 tablet in the evening. losartan 50 2021-05 Yes [id number] 50mg Take 1 U nivers mg tablet 0-25 tablet by ity o f 00:00: mouth in [place] 00 the Medical morning Branch and 1 tablet in the evening. losartan 50 2021-05 Yes [id number] 50mg Take 1 U nivers mg tablet 0-25 tablet by ity o f 00:00: mouth in [place] 00 the Medical morning Branch and 1 tablet in the evening. losartan 50 2021-05 Yes [id number] 50mg Take 1 U nivers mg tablet 0-25 tablet by ity o f 00:00: mouth in [place] 00 the Medical morning Branch and 1 tablet in the evening. losartan 50 2021-05 Yes [id number] 50mg Take 1 U nivers mg tablet 0-25 tablet by ity o f 00:00: mouth in [place] 00 the Medical morning Branch and 1 tablet in the evening. losartan 50 2021-05 Yes [id number] 50mg Take 1 U nivers mg tablet 0-25 tablet by ity o f 00:00: mouth in [place] 00 the Medical morning Branch and 1 tablet in the evening. losartan 50 2021-05 Yes [id number] 50mg Take 1 U nivers mg tablet 0-25 tablet by ity o f 00:00: mouth in [place] 00 the Medical morning Branch and 1 tablet in the evening. losartan 50 2021-05 Yes [id number] 50mg Take 1 U nivers mg tablet 0-25 tablet by ity o f 00:00: mouth in [place] 00 the Medical morning Branch and 1 tablet in the evening. losartan 50 2021-05 Yes [id number] 50mg Take 1 U nivers mg tablet 0-25 tablet by ity o f 00:00: mouth in [place] 00 the Medical morning Branch and 1 tablet in the evening. losartan 50 2021-05 Yes [id number] 50mg Take 1 U nivers mg tablet 0-25 tablet by ity o f 00:00: mouth in [place] 00 the Medical morning Branch and 1 tablet in the evening. losartan 50 2021-05 Yes [id number] 50mg Take 1 U nivers mg tablet 0-25 tablet by ity o f 00:00: mouth in [place] 00 the Medical morning Branch and 1 tablet in the evening. losartan 50 2021-05 Yes [id number] 50mg Take 1 U nivers mg tablet 0-25 tablet by ity o f 00:00: mouth in [place] 00 the Medical morning Branch and 1 tablet in the evening. losartan 50 2021-05 Yes [id number] 50mg Take 1 U nivers mg tablet 0-25 tablet by ity o f 00:00: mouth in [place] 00 the Medical morning Branch and 1 tablet in the evening. losartan 50 2021-05 Yes [id number] 50mg Take 1 U nivers mg tablet 0-25 tablet by ity o f 00:00: mouth in [place] 00 the Medical morning Branch and 1 tablet in the evening. losartan 50 2021-05- No [id number] 50mg Take 1 [facility] mg tablet 0-25 03-06 tablet by ity of 00:00: 00:00 mouth in [place] 00 :00 the Medical morning Branch and 1 tablet in the evening. losartan 50 2021-05- No [id number] 50mg Take 1 [facility] mg tablet 0-25 03-06 tablet by ity of 00:00: 00:00 mouth in [place] 00 :00 the Medical morning Branch and 1 tablet in the evening. LOSARTAN 50 2021-05- No [id number] TAKE 1 [facility] mg tablet 0-25 10-25 TABLET BY ity of 00:00: 00:00 MOUTH [place] 00 :00 EVERY DAY Medical Branch METFORMIN 2021-0 Yes [id number] TAKE 1 U nivers 500 mg 9-14 TABLET BY ity of tablet 00:00: MOUTH [place] 00 TWICE A Medical DAY WITH Branch MEALS METFORMIN 2021-0 Yes [id number] TAKE 1 U nivers 500 mg 9-14 TABLET BY ity of tablet 00:00: MOUTH [place] 00 TWICE A Medical DAY WITH Branch MEALS METFORMIN 2022-0 Yes [id number] TAKE 1 U nivers 500 mg 9-14 TABLET BY ity of tablet 00:00: MOUTH TWICE A Medical DAY WITH Branch MEALS METFORMIN 2022-0 Yes [id number] TAKE 1 U nivers 500 mg 9-14 TABLET BY ity of tablet 00:00: MOUTH 00 TWICE A Medical DAY WITH Branch MEALS METFORMIN 2022-0 Yes [id number] TAKE 1 U nivers 500 mg 9-14 TABLET BY ity of tablet 00:00: MOUTH 00 TWICE A Medical DAY WITH Branch MEALS METFORMIN 2022-0 Yes [id number] TAKE 1 U nivers 500 mg 9-14 TABLET BY ity of tablet 00:00: MOUTH TWICE A Medical DAY WITH Branch MEALS METFORMIN 2022-0 Yes [id number] TAKE 1 U nivers 500 mg 9-14 TABLET BY ity of tablet 00:00: MOUTH TWICE A Medical DAY WITH Branch MEALS METFORMIN 2022-0 Yes [id number] TAKE 1 U nivers 500 mg 9-14 TABLET BY ity of tablet 00:00: TWICE A Medical DAY WITH Branch MEALS METFORMIN 2022-0 Yes [id number] TAKE 1 U nivers 500 mg 9-14 TABLET BY ity of tablet 00:00: MOUTH TWICE A Medical DAY WITH Branch MEALS METFORMIN 2022-0 Yes [id number] TAKE 1 U nivers 500 mg 9-14 TABLET BY ity of tablet 00:00: MOUTH TWICE A Medical DAY WITH Branch MEALS METFORMIN 2022-0 Yes [id number] TAKE 1 U nivers 500 mg 9-14 TABLET BY ity of tablet 00:00: TWICE A Medical DAY WITH Branch MEALS METFORMIN 2022-0 Yes [id number] TAKE 1 U nivers 500 mg 9-14 TABLET BY ity of tablet 00:00: MOUTH TWICE A Medical DAY WITH Branch MEALS METFORMIN 2022-0 Yes [id number] TAKE 1 U nivers 500 mg 9-14 TABLET BY ity of tablet 00:00: MOUTH 00 TWICE A Medical DAY WITH Branch MEALS METFORMIN 2022-0 Yes [id number] TAKE 1 U nivers 500 mg 9-14 TABLET BY ity of tablet 00:00: MOUTH 00 TWICE A Medical DAY WITH Branch MEALS METFORMIN 2022-0 Yes [id number] TAKE 1 U nivers 500 mg 9-14 TABLET BY ity of tablet 00:00: MOUTH [place] 00 TWICE A Medical DAY WITH Branch MEALS METFORMIN 2-0 Yes [id number] TAKE 1 U nivers 500 mg 9-14 TABLET BY ity of tablet 00:00: MOUTH [place] 00 TWICE A Medical DAY WITH Branch MEALS METFORMIN 2-0 Yes [id number] TAKE 1 U nivers 500 mg 9-14 TABLET BY ity of tablet 00:00: MOUTH [place] 00 TWICE A Medical DAY WITH Branch MEALS METFORMIN 2-0 2023- No [id number] TAKE 1 [facility] 500 mg 9-14 02-06 TABLET BY ity of tablet 00:00: 00:00 MOUTH [place] 00 :00 TWICE A Medical DAY WITH Branch MEALS METFORMIN 2022-0 2023- No [id number] TAKE 1 [facility] 500 mg 9-14 02-06 TABLET BY ity of tablet 00:00: 00:00 MOUTH [place] 00 :00 TWICE A Medical DAY WITH Branch MEALS METFORMIN 2022-0 2023- No [id number] TAKE 1 [facility] 500 mg 9-14 02-06 TABLET BY ity of tablet 00:00: 00:00 MOUTH [place] 00 :00 TWICE A Medical DAY WITH Branch MEALS ATORVASTATI 2-0 Yes TAKE 1 Univ ers N 80 mg 9-09 TABLET BY ity of tablet 00:00: MOUTH 00 EVERYDAY Medical AT BEDTIME Branch ATORVASTATI 2-0 Yes TAKE 1 [facility] ers N 80 mg 9-09 TABLET BY ity of tablet 00:00: MOUTH [place] 00 EVERYDAY Medical AT BEDTIME Branch ATORVASTATI 2022-0 Yes TAKE 1 [facility] ers N 80 mg 9-09 TABLET BY ity of tablet 00:00: MOUTH 00 EVERYDAY Medical AT BEDTIME Branch ATORVASTATI 2022-0 Yes TAKE 1 [facility] ers N 80 mg 9-09 TABLET BY ity of tablet 00:00: MOUTH [place] 00 EVERYDAY Medical AT BEDTIME Branch ATORVASTATI 2022-0 Yes TAKE 1 Univ ers N 80 mg 9-09 TABLET BY ity of tablet 00:00: MOUTH [place] 00 EVERYDAY Medical AT BEDTIME Branch ATORVASTATI 2022-0 Yes TAKE 1 [facility] ers N 80 mg 9-09 TABLET BY ity of tablet 00:00: MOUTH [place] 00 EVERYDAY Medical AT BEDTIME Branch ATORVASTATI 2022-0 Yes TAKE 1 [facility] ers N 80 mg 9-09 TABLET BY ity of tablet 00:00: MOUTH [place] 00 EVERYDAY Medical AT BEDTIME Branch ATORVASTATI 2022-0 Yes TAKE 1 [facility] ers N 80 mg 9-09 TABLET BY ity of tablet 00:00: MOUTH 00 EVERYDAY Medical AT BEDTIME Branch ATORVASTATI 2-0 Yes TAKE 1 Univ ers N 80 mg 9-09 TABLET BY ity of tablet 00:00: MOUTH 00 EVERYDAY Medical AT BEDTIME Branch ATORVASTATI 2-0 Yes TAKE 1 Univ ers N 80 mg 9-09 TABLET BY ity of tablet 00:00: MOUTH 00 EVERYDAY Medical AT BEDTIME Branch ATORVASTATI 2-0 Yes TAKE 1 [facility] ers N 80 mg 9-09 TABLET BY ity of tablet 00:00: MOUTH 00 EVERYDAY Medical AT BEDTIME Branch ATORVASTATI 2021-0 Yes TAKE 1 [facility] ers N 80 mg 9-09 TABLET BY ity of tablet 00:00: MOUTH EVERYDAY Medical AT BEDTIME Branch ATORVASTATI 2021-0 Yes TAKE 1 [facility] ers N 80 mg 9-09 TABLET BY ity of tablet 00:00: MOUTH 00 EVERYDAY Medical AT BEDTIME Branch ATORVASTATI 2021-0 Yes TAKE 1 [facility] ers N 80 mg 9-09 TABLET BY ity of tablet 00:00: MOUTH 00 EVERYDAY Medical AT BEDTIME Branch ATORVASTATI 2021-0 Yes TAKE 1 [facility] ers N 80 mg 9-09 TABLET BY ity of tablet 00:00: MOUTH EVERYDAY Medical AT BEDTIME Branch ATORVASTATI 2-0 Yes TAKE 1 [facility] ers N 80 mg 9-09 TABLET BY ity of tablet 00:00: MOUTH 00 EVERYDAY Medical AT BEDTIME Branch ATORVASTATI 2-0 Yes TAKE 1 [facility] ers N 80 mg 9-09 TABLET BY ity of tablet 00:00: MOUTH 00 EVERYDAY Medical AT BEDTIME Branch ATORVASTATI 2-0 Yes TAKE 1 [facility] ers N 80 mg 9-09 TABLET BY ity of tablet 00:00: MOUTH 00 EVERYDAY Medical AT BEDTIME Branch ATORVASTATI 2-0 Yes TAKE 1 [facility] ers N 80 mg 9-09 TABLET BY ity of tablet 00:00: MOUTH 00 EVERYDAY Medical AT BEDTIME Branch ATORVASTATI 2-0 Yes TAKE 1 [facility] N 80 mg 9-09 TABLET BY [facility] tablet 00:00: MOUTH 00 EVERYDAY Medical AT BEDTIME Branch ATORVASTATI 2022-0 Yes TAKE 1 [facility] N 80 mg 9-09 TABLET BY [facility] of tablet 00:00: MOUTH [place] 00 EVERYDAY Medical AT BEDTIME Branch ATORVASTATI 2021-0 Yes TAKE 1 [facility] N 80 mg 9-09 TABLET BY [facility] of tablet 00:00: MOUTH [place] 00 EVERYDAY Medical AT BEDTIME Branch ATORVASTATI 2021-0 Yes TAKE 1 [facility] N 80 mg 9-09 TABLET BY [facility] of tablet 00:00: MOUTH [place] 00 EVERYDAY Medical AT BEDTIME Branch ATORVASTATI 2021-0 Yes TAKE 1 [facility] N 80 mg 9-09 TABLET BY it[facility] of tablet 00:00: MOUTH [place] 00 EVERYDAY Medical AT BEDTIME Branch ATORVASTATI 2021-0 Yes TAKE 1 [facility] N 80 mg 9-09 TABLET BY [facility] of tablet 00:00: MOUTH [place] 00 EVERYDAY Medical AT BEDTIME Branch ATORVASTATI 2021-0 Yes TAKE 1 [facility] N 80 mg 9-09 TABLET BY it[facility] of tablet 00:00: MOUTH 00 EVERYDAY Medical AT BEDTIME Branch ATORVASTATI 2021-0 Yes TAKE 1 [facility] N 80 mg 9-09 TABLET BY [facility] of tablet 00:00: MOUTH [place] 00 EVERYDAY Medical AT BEDTIME Branch ATORVASTATI 2021-0 Yes TAKE 1 [facility] N 80 mg 9-09 TABLET BY it[facility] of tablet 00:00: MOUTH 00 EVERYDAY Medical AT BEDTIME Branch ATORVASTATI 2021-0 Yes TAKE 1 [facility] N 80 mg 9-09 TABLET BY [facility] of tablet 00:00: MOUTH 00 EVERYDAY Medical AT BEDTIME Branch ATORVASTATI 2021-0 Yes TAKE 1 [facility] N 80 mg 9-09 TABLET BY [facility] of tablet 00:00: MOUTH [place] 00 EVERYDAY Medical AT BEDTIME Branch ATORVASTATI 2021-0 Yes TAKE 1 [facility] N 80 mg 9-09 TABLET BY [facility] of tablet 00:00: MOUTH [place] 00 EVERYDAY Medical AT BEDTIME Branch ATORVASTATI 2021-0 Yes TAKE 1 [facility] N 80 mg 9-09 TABLET BY [facility] of tablet 00:00: MOUTH [place] 00 EVERYDAY Medical AT BEDTIME Branch ATORVASTATI 2021-0 3- No TAKE 1 [facility] N 80 mg 9-09 03-03 TABLET BY [facility] of tablet 00:00: 00:00 MOUTH [place] 00 :00 EVERYDAY Medical AT BEDTIME Branch ATORVASTATI 0 2022- No TAKE 1 [facility] N 80 mg 01-09 TABLET BY [facility] of tablet 00:00: 00:00 MOUTH [place] 00 :00 EVERYDAY Medical AT BEDTIME Branch ATORVASTATI 2022- No TAKE 1 [facility] N 80 mg 01-09 TABLET BY [facility] of tablet 00:00: 00:00 MOUTH [place] 00 :00 EVERYDAY Medical AT BEDTIME Branch ATORVASTATI 2022- No TAKE 1 [facility] N 80 mg 01-09 TABLET BY [facility] of tablet 00:00: 00:00 MOUTH [place] 00 :00 EVERYDAY Medical AT BEDTIME Branch mirabegron 2021-0 Yes [id number] 50mg Take 1 [facility] (MYRBETRIQ) 8-22 tablet by ity of 50 mg 00:00: mouth in [place] tablet 00 the Medical morning. Branch mirabegron 2021-0 Yes [id number] 50mg Take 1 [facility] (MYRBETRIQ) 8-22 tablet by ity of 50 mg 00:00: mouth in [place] tablet 00 the Medical morning. Branch mirabegron 2021-0 Yes [id number] 50mg Take 1 [facility] (MYRBETRIQ) 8-22 tablet by ity of 50 mg 00:00: mouth in [place] tablet 00 the Medical morning. Branch mirabegron 2021-0 Yes [id number] 50mg Take 1 [facility] (MYRBETRIQ) 8-22 tablet by ity of 50 mg 00:00: mouth in [place] tablet 00 the Medical morning. Branch mirabegron 2021-0 Yes [id number] 50mg Take 1 [facility] (MYRBETRIQ) 8-22 tablet by ity of 50 mg 00:00: mouth in [place] tablet 00 the Medical morning. Branch mirabegron 2-0 Yes [id number] 50mg Take 1 [facility] (MYRBETRIQ) 8-22 tablet by ity of 50 mg 00:00: mouth in [place] tablet 00 the Medical morning. Branch mirabegron 2-0 Yes [id number] 50mg Take 1 [facility] (MYRBETRIQ) 8-22 tablet by ity of 50 mg 00:00: mouth in [place] tablet 00 the Medical morning. Branch mirabegron 2022-0 Yes [id number] 50mg Take 1 [facility] (MYRBETRIQ) 8-22 tablet by ity of 50 mg 00:00: mouth in [place] tablet 00 the Medical morning. Branch mirabegron 2022-0 Yes [id number] 50mg Take 1 [facility] (MYRBETRIQ) 8-22 tablet by ity of 50 mg 00:00: mouth in [place] tablet 00 the Medical morning. Branch mirabegron 2022-0 Yes [id number] 50mg Take 1 [facility] (MYRBETRIQ) 8-22 tablet by ity of 50 mg 00:00: mouth in [place] tablet 00 the Medical morning. Branch mirabegron 2022-0 Yes [id number] 50mg Take 1 [facility] (MYRBETRIQ) 8-22 tablet by ity of 50 mg 00:00: mouth in [place] tablet 00 the Medical morning. Branch mirabegron 2022-0 Yes [id number] 50mg Take 1 [facility] (MYRBETRIQ) 8-22 tablet by ity of 50 mg 00:00: mouth in [place] tablet 00 the Medical morning. Branch mirabegron 2022-0 Yes [id number] 50mg Take 1 [facility] (MYRBETRIQ) 8-22 tablet by ity of 50 mg 00:00: mouth in [place] tablet 00 the Medical morning. Branch mirabegron 2022-0 Yes [id number] 50mg Take 1 [facility] (MYRBETRIQ) 8-22 tablet by ity of 50 mg 00:00: mouth in [place] tablet 00 the Medical morning. Branch mirabegron 2022-0 Yes [id number] 50mg Take 1 [facility] (MYRBETRIQ) 8-22 tablet by ity of 50 mg 00:00: mouth in [place] tablet 00 the Medical morning. Branch mirabegron 2022-0 Yes [id number] 50mg Take 1 [facility] (MYRBETRIQ) 8-22 tablet by ity of 50 mg 00:00: mouth in [place] tablet 00 the Medical morning. Branch mirabegron 2022-0 Yes [id number] 50mg Take 1 [facility] (MYRBETRIQ) 8-22 tablet by ity of 50 mg 00:00: mouth in [place] tablet 00 the Medical morning. Branch mirabegron 2022-0 Yes [id number] 50mg Take 1 [facility] (MYRBETRIQ) 8-22 tablet by ity of 50 mg 00:00: mouth in [place] tablet 00 the Medical morning. Branch mirabegron 2022-0 Yes [id number] 50mg Take 1 [facility] (MYRBETRIQ) 8-22 tablet by ity of 50 mg 00:00: mouth in [place] tablet 00 the Medical morning. Branch mirabegron 2022-0 Yes [id number] 50mg Take 1 [facility] (MYRBETRIQ) 8-22 tablet by ity of 50 mg 00:00: mouth in [place] tablet 00 the Medical morning. Branch mirabegron 2022-0 Yes [id number] 50mg Take 1 [facility] (MYRBETRIQ) 8-22 tablet by ity of 50 mg 00:00: mouth in [place] tablet 00 the Medical morning. Branch mirabegron 2022-0 Yes [id number] 50mg Take 1 [facility] (MYRBETRIQ) 8-22 tablet by ity of 50 mg 00:00: mouth in [place] tablet 00 the Medical morning. Branch mirabegron 2022-0 Yes [id number] 50mg Take 1 [facility] (MYRBETRIQ) 8-22 tablet by ity of 50 mg 00:00: mouth in [place] tablet 00 the Medical morning. Branch mirabegron 2022-0 Yes [id number] 50mg Take 1 [facility] (MYRBETRIQ) 8-22 tablet by ity of 50 mg 00:00: mouth in [place] tablet 00 the Medical morning. Branch mirabegron 2022-0 Yes [id number] 50mg Take 1 [facility] (MYRBETRIQ) 8-22 tablet by ity of 50 mg 00:00: mouth in [place] tablet 00 the Medical morning. Branch mirabegron 2022-0 Yes [id number] 50mg Take 1 [facility] (MYRBETRIQ) 8-22 tablet by ity of 50 mg 00:00: mouth in [place] tablet 00 the Medical morning. Branch mirabegron 2022-0 Yes [id number] 50mg Take 1 [facility] (MYRBETRIQ) 8-22 tablet by ity of 50 mg 00:00: mouth in [place] tablet 00 the Medical morning. Branch mirabegron 2022-0 Yes [id number] 50mg Take 1 [facility] (MYRBETRIQ) 8-22 tablet by ity of 50 mg 00:00: mouth in [place] tablet 00 the Medical morning. Branch mirabegron 2022-0 Yes [id number] 50mg Take 1 [facility] (MYRBETRIQ) 8-22 tablet by ity of 50 mg 00:00: mouth in [place] tablet 00 the Medical morning. Branch mirabegron 2022-0 Yes [id number] 50mg Take 1 [facility] (MYRBETRIQ) 8-22 tablet by ity of 50 mg 00:00: mouth in [place] tablet 00 the Medical morning. Branch mirabegron 2022-0 Yes [id number] 50mg Take 1 [facility] (MYRBETRIQ) 8-22 tablet by ity of 50 mg 00:00: mouth in [place] tablet 00 the Medical morning. Branch mirabegron 2022-0 Yes [id number] 50mg Take 1 [facility] (MYRBETRIQ) 8-22 tablet by ity of 50 mg 00:00: mouth in [place] tablet 00 the Medical morning. Branch mirabegron 2022-0 Yes [id number] 50mg Take 1 [facility] (MYRBETRIQ) 8-22 tablet by ity of 50 mg 00:00: mouth in [place] tablet 00 the Medical morning. Branch mirabegron 2022-0 Yes [id number] 50mg Take 1 [facility] (MYRBETRIQ) 8-22 tablet by ity of 50 mg 00:00: mouth in [place] tablet 00 the Medical morning. Branch mirabegron 2022-0 Yes [id number] 50mg Take 1 [facility] (MYRBETRIQ) 8-22 tablet by ity of 50 mg 00:00: mouth in [place] tablet 00 the Medical morning. Branch mirabegron 2022-0 Yes [id number] 50mg Take 1 [facility] (MYRBETRIQ) 8-22 tablet by ity of 50 mg 00:00: mouth in [place] tablet 00 the Medical morning. Branch mirabegron 2022-0 Yes [id number] 50mg Take 1 [facility] (MYRBETRIQ) 8-22 tablet by ity of 50 mg 00:00: mouth in [place] tablet 00 the Medical morning. Branch mirabegron Yes [id number] 50mg Take 1 [facility] (MYRBETRIQ) 12-22 tablet by ity of 50 mg 00:00: mouth in [place] tablet 00 the Medical morning. Branch mirabegron 3- No [id number] 50mg Take 1 [facility] (MYRBETRIQ) 12-22- tablet by it y of 50 mg 00:00: 00:00 mouth in [place] tablet 00 :00 the Medical morning. Branch mirabegron 3- No [id number] 50mg Take 1 [facility] (MYRBETRIQ) 12-22- tablet by it y of 50 mg 00:00: 00:00 mouth in [place] tablet 00 :00 the Medical morning. Branch evolocumab 0 Yes [id number] 140mg inject 140 [facility] (REPATHA 7-28 104 mg under ity of SURECLICK) 00:00: the skin [place] 140 mg/mL 00 every 2 Medical PnIj (two) Branch weeks. evolocumab 2021-0 Yes [id number] 140mg inject 140 [facility] (REPATHA 7-28 104 mg under ity of SURECLICK) 00:00: the skin [place] 140 mg/mL 00 every 2 Medical PnIj (two) Branch weeks. evolocumab 2021-0 Yes [id number] 140mg inject 140 [facility] (REPATHA 7-28 104 mg under ity of SURECLICK) 00:00: the skin [place] mg/mL 00 every 2 Medical PnIj (two) Branch weeks. evolocumab 2021-0 Yes [id number] 140mg inject 140 [facility] (REPATHA 7-28 104 mg under ity of SURECLICK) 00:00: the skin [place] mg/mL 00 every 2 Medical PnIj (two) Branch weeks. evolocumab 2-0 Yes [id number] 140mg inject 140 [facility] (REPATHA 7-28 104 mg under ity of SURECLICK) 00:00: the skin [place] mg/mL 00 every 2 Medical PnIj (two) Branch weeks. evolocumab 2021-0 Yes [id number] 140mg inject 140 [facility] (REPATHA 7-28 104 mg under ity of SURECLICK) 00:00: the skin [place] mg/mL 00 every 2 Medical PnIj (two) Branch weeks. evolocumab 2022-0 Yes [id number] 140mg inject 140 [facility] (REPATHA 7-28 104 mg under ity of SURECLICK) 00:00: the skin [place] 140 mg/mL 00 every 2 Medical PnIj (two) Branch weeks. evolocumab 2022-0 Yes [id number] 140mg inject 140 [facility] (REPATHA 7-28 104 mg under ity of SURECLICK) 00:00: the skin [place] 140 mg/mL 00 every 2 Medical PnIj (two) Branch weeks. evolocumab 2-0 Yes [id number] 140mg inject 140 [facility] (REPATHA 7-28 104 mg under ity of SURECLICK) 00:00: the skin [place] 140 mg/mL 00 every 2 Medical PnIj (two) Branch weeks. evolocumab 2-0 Yes [id number] 140mg inject 140 [facility] (REPATHA 7-28 104 mg under ity of SURECLICK) 00:00: the skin [place] 140 mg/mL 00 every 2 Medical PnIj (two) Branch weeks. evolocumab 2-0 Yes [id number] 140mg inject 140 [facility] (REPATHA 7-28 104 mg under ity of SURECLICK) 00:00: the skin [place] 140 mg/mL 00 every 2 Medical PnIj (two) Branch weeks. evolocumab 2-0 Yes [id number] 140mg inject 140 [facility] (REPATHA 7-28 104 mg under ity of SURECLICK) 00:00: the skin [place] 140 mg/mL 00 every 2 Medical PnIj (two) Branch weeks. evolocumab 2022-0 Yes [id number] 140mg inject 140 [facility] (REPATHA 7-28 104 mg under ity of SURECLICK) 00:00: the skin [place] 140 mg/mL 00 every 2 Medical PnIj (two) Branch weeks. evolocumab 2022-0 Yes [id number] 140mg inject 140 [facility] (REPATHA 7-28 104 mg under ity of SURECLICK) 00:00: the skin [place] 140 mg/mL 00 every 2 Medical PnIj (two) Branch weeks. evolocumab 2022-0 Yes [id number] 140mg inject 140 [facility] (REPATHA 7-28 104 mg under ity of SURECLICK) 00:00: the skin [place] 140 mg/mL 00 every 2 Medical PnIj (two) Branch weeks. evolocumab 2-0 Yes [id number] 140mg inject 140 [facility] (REPATHA 7-28 104 mg under ity of SURECLICK) 00:00: the skin [place] 140 mg/mL 00 every 2 Medical PnIj (two) Branch weeks. evolocumab 2-0 Yes [id number] 140mg inject 140 [facility] (REPATHA 7-28 104 mg under ity of SURECLICK) 00:00: the skin [place] 140 mg/mL 00 every 2 Medical PnIj (two) Branch weeks. evolocumab 2-0 Yes [id number] 140mg inject 140 [facility] (REPATHA 7-28 104 mg under ity of SURECLICK) 00:00: the skin [place] 140 mg/mL 00 every 2 Medical PnIj (two) Branch weeks. evolocumab 2-0 Yes [id number] 140mg inject 140 [facility] (REPATHA 7-28 104 mg under ity of SURECLICK) 00:00: the skin [place] 140 mg/mL 00 every 2 Medical PnIj (two) Branch weeks. evolocumab 2-0 Yes [id number] 140mg inject 140 [facility] (REPATHA 7-28 104 mg under ity of SURECLICK) 00:00: the skin [place] 140 mg/mL 00 every 2 Medical PnIj (two) Branch weeks. evolocumab 2-0 Yes [id number] 140mg inject 140 [facility] (REPATHA 7-28 104 mg under ity of SURECLICK) 00:00: the skin [place] 140 mg/mL 00 every 2 Medical PnIj (two) Branch weeks. evolocumab 2022-0 Yes [id number] 140mg inject 140 [facility] (REPATHA 7-28 104 mg under ity of SURECLICK) 00:00: the skin [place] 140 mg/mL 00 every 2 Medical PnIj (two) Branch weeks. evolocumab 2-0 Yes [id number] 140mg inject 140 [facility] (REPATHA 7-28 104 mg under ity of SURECLICK) 00:00: the skin [place] 140 mg/mL 00 every 2 Medical PnIj (two) Branch weeks. evolocumab 2022-0 Yes [id number] 140mg inject 140 [facility] (REPATHA 7-28 104 mg under ity of SURECLICK) 00:00: the skin [place] mg/mL 00 every 2 Medical PnIj (two) Branch weeks. evolocumab 2-0 Yes [id number] 140mg inject 140 [facility] (REPATHA 7-28 104 mg under ity of SURECLICK) 00:00: the skin [place] 140 mg/mL 00 every 2 Medical PnIj (two) Branch weeks. evolocumab 2-0 Yes [id number] 140mg inject 140 [facility] (REPATHA 7-28 104 mg under ity of SURECLICK) 00:00: the skin [place] 140 mg/mL 00 every 2 Medical PnIj (two) Branch weeks. evolocumab 2021-0 Yes [id number] 140mg inject 140 [facility] (REPATHA 7-28 104 mg under ity of SURECLICK) 00:00: the skin [place] 140 mg/mL 00 every 2 Medical PnIj (two) Branch weeks. evolocumab 2-0 Yes [id number] 140mg inject 140 [facility] (REPATHA 7-28 104 mg under ity of SURECLICK) 00:00: the skin [place] 140 mg/mL 00 every 2 Medical PnIj (two) Branch weeks. evolocumab 2-0 Yes [id number] 140mg inject 140 [facility] (REPATHA 7-28 104 mg under ity of SURECLICK) 00:00: the skin [place] 140 mg/mL 00 every 2 Medical PnIj (two) Branch weeks. evolocumab 2-0 Yes [id number] 140mg inject 140 [facility] (REPATHA 7-28 104 mg under ity of SURECLICK) 00:00: the skin [place] 140 mg/mL 00 every 2 Medical PnIj (two) Branch weeks. evolocumab 2022-0 Yes [id number] 140mg inject 140 [facility] (REPATHA 7-28 104 mg under ity of SURECLICK) 00:00: the skin [place] 140 mg/mL 00 every 2 Medical PnIj (two) Branch weeks. evolocumab 2022-0 Yes [id number] 140mg inject 140 [facility] (REPATHA 7-28 104 mg under ity of SURECLICK) 00:00: the skin [place] 140 mg/mL 00 every 2 Medical PnIj (two) Branch weeks. evolocumab 2022-0 Yes [id number] 140mg inject 140 [facility] (REPATHA 7-28 104 mg under ity of SURECLICK) 00:00: the skin [place] 140 mg/mL 00 every 2 Medical PnIj (two) Branch weeks. evolocumab 2022-0 Yes [id number] 140mg inject 140 [facility] (REPATHA 7-28 104 mg under ity of SURECLICK) 00:00: the skin [place] 140 mg/mL 00 every 2 Medical PnIj (two) Branch weeks. evolocumab 2-0 Yes [id number] 140mg inject 140 [facility] (REPATHA 7-28 104 mg under ity of SURECLICK) 00:00: the skin [place] 140 mg/mL 00 every 2 Medical PnIj (two) Branch weeks. evolocumab 2-0 Yes [id number] 140mg inject 140 [facility] (REPATHA 7-28 104 mg under ity of SURECLICK) 00:00: the skin [place] 140 mg/mL 00 every 2 Medical PnIj (two) Branch weeks. evolocumab 2-0 Yes [id number] 140mg inject 140 [facility] (REPATHA 7-28 104 mg under ity of SURECLICK) 00:00: the skin [place] 140 mg/mL 00 every 2 Medical PnIj (two) Branch weeks. evolocumab 2-0 Yes [id number] 140mg inject 140 [facility] (REPATHA 7-28 104 mg under ity of SURECLICK) 00:00: the skin [place] 140 mg/mL 00 every 2 Medical PnIj (two) Branch weeks. evolocumab 2022-0 Yes [id number] 140mg inject 140 [facility] (REPATHA 7-28 104 mg under ity of SURECLICK) 00:00: the skin [place] 140 mg/mL 00 every 2 Medical PnIj (two) Branch weeks. evolocumab 2022-0 Yes [id number] 140mg inject 140 [facility] (REPATHA 7-28 104 mg under ity of SURECLICK) 00:00: the skin [place] 140 mg/mL 00 every 2 Medical PnIj (two) Branch weeks. evolocumab 2022-0 Yes [id number] 140mg inject 140 [facility] (REPATHA 7-28 104 mg under ity of SURECLICK) 00:00: the skin [place] 140 mg/mL 00 every 2 Medical PnIj (two) Branch weeks. evolocumab 2-0 Yes [id number] 140mg inject 140 [facility] (REPATHA 7-28 104 mg under ity of SURECLICK) 00:00: the skin [place] 140 mg/mL 00 every 2 Medical PnIj (two) Branch weeks. evolocumab 2-0 Yes [id number] 140mg inject 140 [facility] (REPATHA 7-28 104 mg under ity of SURECLICK) 00:00: the skin [place] 140 mg/mL 00 every 2 Medical PnIj (two) Branch weeks. evolocumab 2-0 Yes [id number] 140mg inject 140 [facility] (REPATHA 7-28 104 mg under ity of SURECLICK) 00:00: the skin [place] 140 mg/mL 00 every 2 Medical PnIj (two) Branch weeks. evolocumab 2-0 Yes [id number] 140mg inject 140 [facility] (REPATHA 7-28 104 mg under ity of SURECLICK) 00:00: the skin [place] 140 mg/mL 00 every 2 Medical PnIj (two) Branch weeks. evolocumab 2-0 Yes [id number] 140mg inject 140 [facility] (REPATHA 7-28 104 mg under ity of SURECLICK) 00:00: the skin [place] 140 mg/mL 00 every 2 Medical PnIj (two) Branch weeks. evolocumab 2-0 Yes [id number] 140mg inject 140 [facility] (REPATHA 7-28 104 mg under ity of SURECLICK) 00:00: the skin [place] 140 mg/mL 00 every 2 Medical PnIj (two) Branch weeks. evolocumab 2-0 Yes [id number] 140mg inject 140 [facility] (REPATHA 7-28 104 mg under ity of SURECLICK) 00:00: the skin [place] 140 mg/mL 00 every 2 Medical PnIj (two) Branch weeks. evolocumab 2-0 Yes [id number] 140mg inject 140 [facility] (REPATHA 7-28 104 mg under ity of SURECLICK) 00:00: the skin [place] 140 mg/mL 00 every 2 Medical PnIj (two) Branch weeks. evolocumab 0 Yes [id number] 140mg inject 140 [facility] (REPATHA 7-28 104 mg under ity of SURECLICK) 00:00: the skin [place] 140 mg/mL 00 every 2 Medical PnIj (two) Branch weeks. evolocumab 0 Yes [id number] 140mg inject 140 [facility] (REPATHA 7-28 104 mg under ity of SURECLICK) 00:00: the skin [place] 140 mg/mL 00 every 2 Medical PnIj (two) Branch weeks. evolocumab Yes [id number] 140mg inject 140 [facility] (REPATHA 7-28 104 mg under ity of SURECLICK) 00:00: the skin [place] 140 mg/mL 00 every 2 Medical PnIj (two) Branch weeks. evolocumab 2022- No [id number] 140mg inject 140 [facility] (REPATHA 7-28 07-12 104 mg under ity of SURECLICK) 00:00: 00:00 the skin [place] 140 mg/mL 00 :00 every 2 Medical PnIj (two) Branch weeks. NIFEdipine 2021- No [id number] 30mg Take 1 [facility] XL 30 mg 24 7-25 10-24 104 tablet by it y of hr tablet 00:00: 04:59 mouth in [place] 00 :00 the Medical morning Branch and 1 tablet in the evening. Do all this for 90 days. NIFEdipine 2021- No [id number] 30mg Take 1 [facility] XL 30 mg 24 7-25 10-24 104 tablet by it y of hr tablet 00:00: 04:59 mouth in [place] 00 :00 the Medical morning Branch and 1 tablet in the evening. Do all this for 90 days. NIFEdipine 2021- No [id number] 30mg Take 1 [facility] XL 30 mg 24 7-25 10-24 104 tablet by it y of hr tablet 00:00: 04:59 mouth in [place] 00 :00 the Medical morning Branch and 1 tablet in the evening. Do all this for 90 days. NIFEdipine 2021- No [id number] 30mg Take 1 [facility] XL 30 mg 24 7-25 10-24 104 tablet by it y of hr tablet 00:00: 04:59 mouth in [place] 00 :00 the Medical morning Branch and 1 tablet in the evening. Do all this for 90 days. NIFEdipine 2021-2021- No [id number] 30mg Take 1 [facility] XL 30 mg 24 7-25 10-24 104 tablet by it y of hr tablet 00:00: 04:59 mouth in [place] 00 :00 the Medical morning Branch and 1 tablet in the evening. Do all this for 90 days. losartan 50 2021-0 Yes [id number] 50mg Take 1 [facility] mg tablet 5-02 tablet by ity o f 00:00: mouth 2 (two) Medical times Branch daily. losartan 50 2021-0 Yes [id number] 50mg Take 1 [facility] mg tablet 5-02 tablet by ity o f 00:00: mouth 2 (two) Medical times Branch daily. losartan 50 2021-0 Yes [id number] 50mg Take 1 [facility] mg tablet 5-02 tablet by ity o f 00:00: mouth [place] (two) Medical times Branch daily. losartan 50 2021-0 Yes [id number] 50mg Take 1 [facility] mg tablet 5-02 tablet by ity o f 00:00: mouth 2 (two) Medical times Branch daily. losartan 50 2021-0 Yes [id number] 50mg Take 1 [facility] mg tablet 5-02 tablet by ity o f 00:00: mouth 2 (two) Medical times Branch daily. losartan 50 2021-0 2021- No [id number] 50mg Take 1 [facility] mg tablet 5-02 10-25 tablet by ity of 00:00: 00:00 mouth 2 [place] 00 :00 (two) Medical times Branch daily. mv-mn/iron/ 2021-0 [...] Medical (VITAMIN D3 Branch COMPLETE ORAL) mv-mn/iron/ 2-0 Yes 2000mg Take 2,000 [facility] folic 4-21 mg by ity of acid/herb 10:15: mouth [place] 190 42 daily. Medical (VITAMIN D3 Branch COMPLETE ORAL) mv-mn/iron/ 2-0 Yes 2000mg Take 2,000 [facility] folic 4-21 mg by ity of acid/herb 10:15: mouth [place] 190 42 daily. Medical (VITAMIN D3 Branch COMPLETE ORAL) mv-mn/iron/ 2-0 Yes 2000mg Take 2,000 [facility] folic 4-21 [...] Medical (VITAMIN D3 Branch COMPLETE ORAL) mv-mn/iron/ 2-0 Yes 2000mg Take 2,000 [facility] folic 4-21 mg by ity of acid/herb 10:15: mouth [place] 190 42 daily. Medical (VITAMIN D3 Branch COMPLETE ORAL) mv-mn/iron/ 2021-0 Yes 2000mg Take 2,000 [facility] folic 4-21 mg by ity of acid/herb 10:15: mouth [place] 190 42 daily. Medical (VITAMIN D3 Branch COMPLETE ORAL) mv-mn/iron/ 2-0 Yes 2000mg Take 2,000 [facility] folic 4-21 mg by ity of acid/herb 10:15: mouth [place] 190 42 daily. Medical (VITAMIN D3 Branch COMPLETE ORAL) mv-mn/iron/ 2022-0 Yes 2000mg Take 2,000 [facility] folic 4-21 mg by ity of acid/herb 10:15: mouth [place] 190 42 daily. Medical (VITAMIN D3 Branch COMPLETE ORAL) mv-mn/iron/ 2022-0 Yes 2000mg Take 2,000 [facility] folic 4-21 mg by ity of acid/herb 10:15: mouth [place] 190 42 daily. Medical (VITAMIN D3 Branch COMPLETE ORAL) mv-mn/iron/ 2-0 Yes 2000mg Take 2,000 [facility] folic 4-21 mg by ity of acid/herb 10:15: mouth [place] 190 42 daily. Medical (VITAMIN D3 Branch COMPLETE ORAL) mv-mn/iron/ 2-0 Yes 2000mg Take 2,000 [facility] folic 4-21 mg by ity of acid/herb 10:15: mouth [place] 190 42 daily. Medical (VITAMIN D3 Branch COMPLETE ORAL) mv-mn/iron/ 2-0 Yes 2000mg Take 2,000 [facility] folic 4-21 mg by ity of acid/herb 10:15: mouth [place] 190 42 daily. Medical (VITAMIN D3 Branch COMPLETE ORAL) mv-mn/iron/ 2-0 Yes 2000mg Take 2,000 [facility] folic 4-21 [...] Medical (VITAMIN D3 Branch COMPLETE ORAL) mv-mn/iron/ 2-0 Yes 2000mg Take 2,000 [facility] folic 4-21 mg by ity of acid/herb 10:15: mouth [place] 190 42 daily. Medical (VITAMIN D3 Branch COMPLETE ORAL) mv-mn/iron/ 2-0 Yes 2000mg Take 2,000 [facility] folic 4-21 mg by ity of acid/herb 10:15: mouth [place] 190 42 daily. Medical (VITAMIN D3 Branch COMPLETE ORAL) mv-mn/iron/ 2022-0 Yes 2000mg Take 2,000 [facility] folic 4-21 mg by ity of acid/herb 10:15: mouth [place] 190 42 daily. Medical (VITAMIN D3 Branch COMPLETE ORAL) mv-mn/iron/ 2022-0 Yes 2000mg Take 2,000 [facility] folic 4-21 [...] Medical (VITAMIN D3 Branch COMPLETE ORAL) mv-mn/iron/ 2-0 Yes 2000mg Take 2,000 [facility] folic 4-21 mg by ity of acid/herb 10:15: mouth [place] 190 42 daily. Medical (VITAMIN D3 Branch COMPLETE ORAL) mv-mn/iron/ 2-0 Yes 2000mg Take 2,000 [facility] folic 4-21 mg by ity of acid/herb 10:15: mouth [place] 190 42 daily. Medical (VITAMIN D3 Branch COMPLETE ORAL) mv-mn/iron/ 2022-0 Yes 2000mg Take 2,000 [facility] folic 4-21 mg by ity of acid/herb 10:15: mouth [place] 190 42 daily. Medical (VITAMIN D3 Branch COMPLETE ORAL) mv-mn/iron/ 2-0 Yes 2000mg Take 2,000 [facility] folic 4-21 mg by ity of acid/herb 10:15: mouth [place] 190 42 daily. Medical (VITAMIN D3 Branch COMPLETE ORAL) mv-mn/iron/ 2-0 Yes 2000mg Take 2,000 [facility] folic 4-21 [...] Medical (VITAMIN D3 Branch COMPLETE ORAL) mv-mn/iron/ 2-0 Yes 2000mg Take 2,000 [facility] folic 4-21 mg by ity of acid/herb 10:15: mouth [place] 190 42 daily. Medical (VITAMIN D3 Branch COMPLETE ORAL) mv-mn/iron/ 2022-0 Yes 2000mg Take 2,000 [facility] folic 4-21 mg by ity of acid/herb 10:15: mouth [place] 190 42 daily. Medical (VITAMIN D3 Branch COMPLETE ORAL) mv-mn/iron/ 2-0 Yes 2000mg Take 2,000 [facility] folic 4-21 mg by ity of acid/herb 10:15: mouth [place] 190 42 daily. Medical (VITAMIN D3 Branch COMPLETE ORAL) mv-mn/iron/ 2-0 Yes 2000mg Take 2,000 [facility] folic 4-21 [...] Medical (VITAMIN D3 Branch COMPLETE ORAL) mv-mn/iron/ 2-0 Yes 2000mg Take 2,000 [facility] f[facility] 4-21 mg by ity of acid/herb 10:15: mouth [place] 190 42 daily. Medical (VITAMIN D3 Branch COMPLETE ORAL) mv-mn/iron/ 2-0 Yes 2000mg Take 2,000 [facility] f[facility] 4-21 mg by ity of acid/herb 10:15: mouth [place] 190 42 daily. Medical (VITAMIN D3 Branch COMPLETE ORAL) mv-mn/iron/ 2-0 Yes 2000mg Take 2,000 [facility] folic 4-21 [...] [place] 00 EVERY DAY Medical Branch EZETIMIBE 2022-0 Yes TAKE 1 [facility] 4-11 TABLET BY [facility] tablet 00:00: MOUTH 00 EVERY DAY Medical Branch EZETIMIBE 2-0 Yes TAKE 1 [facility] 10 mg 4-11 TABLET BY [facility] tablet 00:00: MOUTH 00 EVERY DAY Medical Branch EZETIMIBE 2-0 Yes TAKE 1 [facility] 10 mg 4-11 TABLET BY [facility] of tablet 00:00: MOUTH EVERY DAY Medical Branch EZETIMIBE 2-0 Yes TAKE 1 [facility] 10 mg 4-11 TABLET BY [facility] of tablet 00:00: MOUTH 00 EVERY DAY Medical Branch EZETIMIBE 2-0 Yes TAKE 1 [facility] 10 mg 4-11 TABLET BY [facility] of tablet 00:00: MOUTH 00 EVERY DAY Medical Branch EZETIMIBE 2-0 Yes TAKE 1 [facility] 10 mg 4-11 TABLET BY [facility] of tablet 00:00: EVERY DAY Medical Branch EZETIMIBE 2-0 Yes TAKE 1 [facility] 10 mg 4-11 TABLET BY [facility] of tablet 00:00: MOUTH 00 EVERY DAY Medical Branch EZETIMIBE 2-0 Yes TAKE 1 [facility] 10 mg 4-11 TABLET BY [facility] of tablet 00:00: MOUTH 00 EVERY DAY Medical Branch EZETIMIBE 2-0 Yes TAKE 1 [facility] 10 mg 4-11 TABLET BY [facility] of tablet 00:00: EVERY DAY Medical Branch EZETIMIBE 2-0 Yes TAKE 1 [facility] 10 mg 4-11 TABLET BY [facility] of tablet 00:00: MOUTH 00 EVERY DAY Medical Branch EZETIMIBE 2-0 Yes TAKE 1 [facility] 10 mg 4-11 TABLET BY [facility] of tablet 00:00: MOUTH 00 EVERY DAY Medical Branch EZETIMIBE 2-0 Yes TAKE 1 [facility] 10 mg 4-11 TABLET BY [facility] of tablet 00:00: MOUTH 00 EVERY DAY Medical Branch EZETIMIBE 2-0 Yes TAKE 1 [facility] 10 mg 4-11 TABLET BY [facility] of tablet 00:00: MOUTH 00 EVERY DAY [facility] Branch EZETIMIBE 2-0 Yes TAKE 1 [facility] 10 mg 4-11 TABLET BY [facility] of tablet 00:00: MOUTH [place] 00 EVERY DAY Medical Branch EZETIMIBE 2022-0 Yes TAKE 1 [facility] 10 mg 4-11 TABLET BY [facility] of tablet 00:00: MOUTH EVERY DAY Medical Branch EZETIMIBE 2-0 Yes TAKE 1 [facility] 10 mg 4-11 TABLET BY [facility] of tablet 00:00: EVERY DAY Medical Branch EZETIMIBE 2-0 Yes TAKE 1 [facility] 10 mg 4-11 TABLET BY [facility] of tablet 00:00: EVERY DAY Medical Branch EZETIMIBE 2-0 Yes TAKE 1 [facility] 10 mg 4-11 TABLET BY [facility] of tablet 00:00: MOUTH EVERY DAY Medical Branch EZETIMIBE 2-0 Yes TAKE 1 [facility] 10 mg 4-11 TABLET BY [facility] of tablet 00:00: EVERY DAY Medical Branch EZETIMIBE 2-0 Yes TAKE 1 [facility] 10 mg 4-11 TABLET BY [facility] of tablet 00:00: EVERY DAY Medical Branch EZETIMIBE 2-0 Yes TAKE 1 [facility] 10 mg 4-11 TABLET BY [facility] of tablet 00:00: EVERY DAY Medical Branch EZETIMIBE 2-0 Yes TAKE 1 [facility] 10 mg 4-11 TABLET BY [facility] of tablet 00:00: EVERY DAY Medical Branch EZETIMIBE 2022-0 Yes TAKE 1 [facility] 10 mg 4-11 TABLET BY [facility] of tablet 00:00: EVERY DAY Medical Branch EZETIMIBE 2022-0 Yes TAKE 1 [facility] 10 mg 4-11 TABLET BY [facility] of tablet 00:00: EVERY DAY Medical Branch EZETIMIBE 2022-0 Yes TAKE 1 [facility] 10 mg 4-11 TABLET BY [facility] of tablet 00:00: EVERY DAY Medical Branch EZETIMIBE 2-0 Yes TAKE 1 [facility] 10 mg 4-11 TABLET BY [facility] of tablet 00:00: MOUTH EVERY DAY Medical Branch EZETIMIBE 2022-0 Yes TAKE 1 [facility] 10 mg 4-11 TABLET BY [facility] of tablet 00:00: EVERY DAY [facility] Branch EZETIMIBE 2-0 Yes TAKE 1 [facility] 10 mg 4-11 TABLET BY [facility] of tablet 00:00: MOUTH EVERY DAY Medical Branch EZETIMIBE 2022-0 Yes TAKE 1 [facility] 10 mg 4-11 TABLET BY [facility] of tablet 00:00: MOUTH EVERY DAY [facility] Branch EZETIMIBE 2-0 Yes TAKE 1 [facility] 10 mg 4-11 TABLET BY [facility] of tablet 00:00: EVERY DAY [facility] Branch EZETIMIBE 2-0 Yes TAKE 1 [facility] 10 mg 4-11 TABLET BY [facility] of tablet 00:00: MOUTH EVERY DAY Medical Branch EZETIMIBE 2-0 Yes TAKE 1 [facility] 10 mg 4-11 TABLET BY [facility] of tablet 00:00: MOUTH EVERY DAY [facility] Branch EZETIMIBE 2-0 Yes TAKE 1 [facility] 10 mg 4-11 TABLET BY [facility] of tablet 00:00: EVERY DAY Medical Branch EZETIMIBE 2-0 Yes TAKE 1 [facility] 10 mg 4-11 TABLET BY [facility] of tablet 00:00: EVERY DAY Medical Branch EZETIMIBE 2-0 Yes TAKE 1 [facility] 10 mg 4-11 TABLET BY [facility] of tablet 00:00: EVERY DAY Medical Branch EZETIMIBE 2-0 Yes TAKE 1 [facility] 10 mg 4-11 TABLET BY [facility] of tablet 00:00: EVERY DAY Medical Branch EZETIMIBE 2-0 Yes TAKE 1 [facility] 10 mg 4-11 TABLET BY [facility] of tablet 00:00: EVERY DAY Medical Branch EZETIMIBE 2-0 Yes TAKE 1 [facility] 10 mg 4-11 TABLET BY [facility] of tablet 00:00: EVERY DAY Medical Branch EZETIMIBE 2022-0 Yes TAKE 1 [facility] 10 mg 4-11 TABLET BY [facility] of tablet 00:00: MOUTH EVERY DAY Medical Branch EZETIMIBE 2-0 Yes TAKE 1 [facility] 10 mg 4-11 TABLET BY [facility] of tablet 00:00: MOUTH 00 EVERY DAY Medical Branch EZETIMIBE 2022-0 Yes TAKE 1 [facility] 10 mg 4-11 TABLET BY [facility] of tablet 00:00: EVERY DAY Medical Branch EZETIMIBE 2-0 Yes TAKE 1 [facility] 10 mg 4-11 TABLET BY [facility] of tablet 00:00: MOUTH EVERY DAY Medical Branch EZETIMIBE 2021-0 Yes TAKE 1 [facility] 10 mg 4-11 TABLET BY [facility] of tablet 00:00: MOUTH EVERY DAY Medical Branch EZETIMIBE 2021-0 Yes TAKE 1 [facility] 10 mg 4-11 TABLET BY [facility] of tablet 00:00: MOUTH EVERY DAY Medical Branch trospium 20 2021-0 Yes [id number] 20mg Take 1 [facility] mg tablet 2-25 tablet by ity o f 00:00: mouth (two) Medical times Branch daily. trospium 20 2021-0 Yes [id number] 20mg Take 1 [facility] mg tablet 2-25 tablet by ity o f 00:00: mouth (two) Medical times Branch daily. trospium 20 2021-0 Yes [id number] 20mg Take 1 [facility] mg tablet 2-25 tablet by ity o f 00:00: mouth (two) Medical times Branch daily. trospium 20 2021-0 Yes [id number] 20mg Take 1 [facility] mg tablet 2-25 tablet by ity o f 00:00: mouth (two) Medical times Branch daily. trospium 20 2021-0 Yes [id number] 20mg Take 1 [facility] mg tablet 2-25 tablet by ity o f 00:00: mouth (two) Medical times Branch daily. trospium 20 2021-0 Yes [id number] 20mg Take 1 [facility] mg tablet 2-25 tablet by ity o f 00:00: mouth (two) Medical times Branch daily. trospium 20 2021-0 Yes [id number] 20mg Take 1 [facility] mg tablet 2-25 tablet by ity o f 00:00: mouth (two) Medical times Branch daily. trospium 20 2021-0 Yes [id number] 20mg Take 1 [facility] mg tablet 2-25 tablet by ity o f 00:00: mouth (two) Medical times Branch daily. trospium 20 2021-0 Yes [id number] 20mg Take 1 [facility] mg tablet 2-25 tablet by ity o f 00:00: mouth (two) Medical times Branch daily. trospium 20 2021-0 Yes [id number] 20mg Take 1 [facility] mg tablet 2-25 tablet by ity o f 00:00: mouth (two) Medical times Branch daily. trospium 20 2021-0 Yes [id number] 20mg Take 1 [facility] mg tablet 2-25 tablet by ity o f 00:00: mouth (two) Medical times Branch daily. trospium 20 2021-0 Yes [id number] 20mg Take 1 [facility] mg tablet 2-25 tablet by ity o f 00:00: mouth (two) Medical times Branch daily. trospium 20 2021-0 Yes [id number] 20mg Take 1 [facility] mg tablet 2-25 tablet by ity o f 00:00: mouth (two) Medical times Branch daily. trospium 20 2021-0 Yes [id number] 20mg Take 1 [facility] mg tablet 2-25 tablet by ity o f 00:00: mouth (two) Medical times Branch daily. trospium 20 2021-0 Yes [id number] 20mg Take 1 [facility] mg tablet 2-25 tablet by ity o f 00:00: mouth (two) Medical times Branch daily. trospium 20 2021-0 Yes [id number] 20mg Take 1 [facility] mg tablet 2-25 tablet by ity o f 00:00: mouth (two) Medical times Branch daily. trospium 20 2021-0 Yes [id number] 20mg Take 1 [facility] mg tablet 2-25 tablet by ity o f 00:00: mouth (two) Medical times Branch daily. trospium 20 2021-0 Yes [id number] 20mg Take 1 [facility] mg tablet 2-25 tablet by ity o f 00:00: mouth (two) Medical times Branch daily. trospium 20 2021-0 Yes [id number] 20mg Take 1 [facility] mg tablet 2-25 tablet by ity o f 00:00: mouth (two) Medical times Branch daily. trospium 20 2021-0 Yes [id number] 20mg Take 1 [facility] mg tablet 2-25 tablet by ity o f 00:00: mouth (two) Medical times Branch daily. trospium 20 2021-0 Yes [id number] 20mg Take 1 [facility] mg tablet 2-25 tablet by ity o f 00:00: mouth (two) Medical times Branch daily. trospium 20 2021-0 Yes [id number] 20mg Take 1 [facility] mg tablet 2-25 tablet by ity o f 00:00: mouth (two) Medical times Branch daily. trospium 20 2021-0 Yes [id number] 20mg Take 1 [facility] mg tablet 2-25 tablet by ity o f 00:00: mouth (two) Medical times Branch daily. trospium 20 2021-0 Yes [id number] 20mg Take 1 [facility] mg tablet 2-25 tablet by ity o f 00:00: mouth (two) Medical times Branch daily. trospium 20 2021-0 Yes [id number] 20mg Take 1 [facility] mg tablet 2-25 tablet by ity o f 00:00: mouth (two) Medical times Branch daily. trospium 20 2021-0 Yes [id number] 20mg Take 1 [facility] mg tablet 2-25 tablet by ity o f 00:00: mouth (two) Medical times Branch daily. trospium 20 2021-0 Yes [id number] 20mg Take 1 [facility] mg tablet 2-25 tablet by ity o f 00:00: mouth (two) Medical times Branch daily. trospium 20 2021-0 Yes [id number] 20mg Take 1 [facility] mg tablet 2-25 tablet by ity o f 00:00: mouth (two) Medical times Branch daily. trospium 20 2021-0 Yes [id number] 20mg Take 1 [facility] mg tablet 2-25 tablet by ity o f 00:00: mouth (two) Medical times Branch daily. trospium 20 2021-0 Yes [id number] 20mg Take 1 [facility] mg tablet 2-25 tablet by ity o f 00:00: mouth (two) Medical times Branch daily. trospium 20 2021-0 Yes [id number] 20mg Take 1 [facility] mg tablet 2-25 tablet by ity o f 00:00: mouth (two) Medical times Branch daily. trospium 20 2021-0 Yes [id number] 20mg Take 1 [facility] mg tablet 2-25 tablet by ity o f 00:00: mouth (two) Medical times Branch daily. trospium 20 2021-0 Yes [id number] 20mg Take 1 [facility] mg tablet 2-25 tablet by ity o f 00:00: mouth (two) Medical times Branch daily. trospium 20 2021-0 Yes [id number] 20mg Take 1 [facility] mg tablet 2-25 tablet by ity o f 00:00: mouth (two) Medical times Branch daily. trospium 20 2021-0 Yes [id number] 20mg Take 1 [facility] mg tablet 2-25 tablet by ity o f 00:00: mouth (two) Medical times Branch daily. trospium 20 2021-0 Yes [id number] 20mg Take 1 [facility] mg tablet 2-25 tablet by ity o f 00:00: mouth (two) Medical times Branch daily. trospium 20 2021-0 Yes [id number] 20mg Take 1 [facility] mg tablet 2-25 tablet by ity o f 00:00: mouth (two) Medical times Branch daily. trospium 20 2021-0 Yes [id number] 20mg Take 1 [facility] mg tablet 2-25 tablet by ity o f 00:00: mouth (two) Medical times Branch daily. trospium 20 2021-0 Yes [id number] 20mg Take 1 [facility] mg tablet 2-25 tablet by ity o f 00:00: mouth (two) Medical times Branch daily. trospium 20 2021-0 Yes [id number] 20mg Take 1 [facility] mg tablet 2-25 tablet by ity o f 00:00: mouth (two) Medical times Branch daily. trospium 20 2021-0 Yes [id number] 20mg Take 1 [facility] mg tablet 2-25 tablet by ity o f 00:00: mouth (two) Medical times Branch daily. trospium 20 2021-0 Yes [id number] 20mg Take 1 [facility] mg tablet 2-25 tablet by ity o f 00:00: mouth (two) Medical times Branch daily. trospium 20 2021-0 Yes [id number] 20mg Take 1 [facility] mg tablet 2-25 tablet by ity o f 00:00: mouth (two) Medical times Branch daily. trospium 20 2021-0 Yes [id number] 20mg Take 1 [facility] mg tablet 2-25 tablet by ity o f 00:00: mouth (two) Medical times Branch daily. trospium 20 2021-0 Yes [id number] 20mg Take 1 [facility] mg tablet 2-25 tablet by ity o f 00:00: mouth (two) Medical times Branch daily. trospium 20 2021-0 Yes [id number] 20mg Take 1 [facility] mg tablet 2-25 tablet by ity o f 00:00: mouth (two) Medical times Branch daily. trospium 20 2021-0 Yes [id number] 20mg Take 1 [facility] mg tablet 2-25 tablet by ity o f 00:00: mouth (two) Medical times Branch daily. trospium 20 2021-0 Yes [id number] 20mg Take 1 [facility] mg tablet 2-25 tablet by ity o f 00:00: mouth (two) Medical times Branch daily. trospium 20 2021-0 Yes [id number] 20mg Take 1 [facility] mg tablet 2-25 tablet by ity o f 00:00: mouth (two) Medical times Branch daily. trospium 20 2021-0 Yes [id number] 20mg Take 1 [facility] mg tablet 2-25 tablet by ity o f 00:00: mouth (two) Medical times Branch daily. trospium 20 2021-0 Yes [id number] 20mg Take 1 [facility] mg tablet 2-25 tablet by ity o f 00:00: mouth (two) Medical times Branch daily. trospium 20 2021-0 Yes [id number] 20mg Take 1 [facility] mg tablet 2-25 tablet by ity o f 00:00: mouth (two) Medical times Branch daily. trospium 20 2021-0 Yes [id number] 20mg Take 1 [facility] mg tablet 2-25 tablet by ity o f 00:00: mouth (two) Medical times Branch daily. trospium 20 2021-0 Yes [id number] 20mg Take 1 [facility] mg tablet 2-25 tablet by ity o f 00:00: mouth 00 (two) Medical times Branch daily. trospium 20 2022-0 Yes [id number] 20mg Take 1 [facility] mg tablet 2-25 tablet by ity o f 00:00: mouth 2 00 (two) Medical times Branch daily. Cholecalcif 2021-1 Yes [id number] 1999U Take 1 [facility] perfecto, 1-08 capsule by ity of Vitamin D3, 00:00: mouth [place] (D3-1999) 00 daily. Medical 50 mcg Take with Branch (2,000 food. unit) capsule Cholecalcif 2021-1 Yes [id number] 1999U Take 1 [facility] perfecto, 1-08 capsule by ity of Vitamin D3, 00:00: mouth [place] (D3-1999) 00 daily. Medical 50 mcg Take with Branch (2,000 food. unit) capsule Cholecalcif 2021-1 Yes [id number] 1999U Take 1 [facility] perfecto, 1-08 capsule by ity of Vitamin D3, 00:00: mouth [place] (D3-1999) 00 daily. Medical 50 mcg Take with Branch (2,000 food. unit) capsule Cholecalcif 2021-1 Yes [id number] 1999U Take 1 [facility] perfecto, 1-08 capsule by ity of Vitamin D3, 00:00: mouth [place] (D3-1999) 00 daily. Medical 50 mcg Take with Branch (2,000 food. unit) capsule Cholecalcif 2021-1 Yes [id number] 1999U Take 1 [facility] perfecto, 1-08 capsule by ity of Vitamin D3, 00:00: mouth [place] (D3-1999) 00 daily. Medical 50 mcg Take with Branch (2,000 food. unit) capsule Cholecalcif 2021-1 Yes [id number] 1999U Take 1 [facility] perfecto, 1-08 capsule by ity of Vitamin D3, 00:00: mouth [place] (D3-1999) 00 daily. Medical 50 mcg Take with Branch (2,000 food. unit) capsule Cholecalcif 2021-1 Yes [id number] 2000U Take 1 [facility] perfecto, 1-08 capsule by ity of Vitamin D3, 00:00: mouth [place] (D3-1999) 00 daily. Medical 50 mcg Take with Branch (2,000 food. unit) capsule Cholecalcif 2021-1 Yes [id number] 2000U Take 1 [facility] perfecto, 1-08 capsule by ity of Vitamin D3, 00:00: mouth [place] (D3-1999) 00 daily. Medical 50 mcg Take with Branch (2,000 food. unit) capsule Cholecalcif 2021-1 Yes [id number] 2000U Take 1 [facility] perfecto, 1-08 capsule by ity of Vitamin D3, 00:00: mouth [place] (D3-1999) 00 daily. Medical 50 mcg Take with Branch (2,000 food. unit) capsule Cholecalcif 2021-1 Yes [id number] 2000U Take 1 [facility] perfecto, 1-08 capsule by ity of Vitamin D3, 00:00: mouth [place] (D3-1999) 00 daily. Medical 50 mcg Take with Branch (2,000 food. unit) capsule Cholecalcif 2021-1 Yes [id number] 2000U Take 1 [facility] perfecto, 1-08 capsule by ity of Vitamin D3, 00:00: mouth [place] (D3-1999) 00 daily. Medical 50 mcg Take with Branch (2,000 food. unit) capsule Cholecalcif 2021-1 Yes [id number] 2000U Take 1 [facility] perfecto, 1-08 capsule by ity of Vitamin D3, 00:00: mouth [place] (D3-1999) 00 daily. Medical 50 mcg Take with Branch (2,000 food. unit) capsule Cholecalcif 2021-1 Yes [id number] 2000U Take 1 [facility] perfecto, 1-08 capsule by ity of Vitamin D3, 00:00: mouth [place] (D3-1999) 00 daily. Medical 50 mcg Take with Branch (2,000 food. unit) capsule Cholecalcif 2021-1 Yes [id number] 2000U Take 1 [facility] perfecto, 1-08 capsule by ity of Vitamin D3, 00:00: mouth [place] (D3-1999) 00 daily. Medical 50 mcg Take with Branch (2,000 food. unit) capsule Cholecalcif 2021-1 Yes [id number] 2000U Take 1 [facility] perfecto, 1-08 capsule by ity of Vitamin D3, 00:00: mouth [place] (D3-1999) 00 daily. Medical 50 mcg Take with Branch (2,000 food. unit) capsule Cholecalcif 2021-1 Yes [id number] 2000U Take 1 [facility] perfecto, 1-08 capsule by ity of Vitamin D3, 00:00: mouth [place] (D3-1999) 00 daily. Medical 50 mcg Take with Branch (2,000 food. unit) capsule Cholecalcif 2021-1 Yes [id number] 2000U Take 1 [facility] perfecto, 1-08 capsule by ity of Vitamin D3, 00:00: mouth [place] (D3-1999) 00 daily. Medical 50 mcg Take with Branch (2,000 food. unit) capsule Cholecalcif 2021-1 Yes [id number] 2000U Take 1 [facility] perfecto, 1-08 capsule by ity of Vitamin D3, 00:00: mouth [place] (D3-1999) 00 daily. Medical 50 mcg Take with Branch (2,000 food. unit) capsule Cholecalcif 2021-1 Yes [id number] 2000U Take 1 [facility] perfecto, 1-08 capsule by ity of Vitamin D3, 00:00: mouth [place] (D3-1999) 00 daily. Medical 50 mcg Take with Branch (2,000 food. unit) capsule Cholecalcif 2021-1 Yes [id number] 2000U Take 1 [facility] perfecto, 1-08 capsule by ity of Vitamin D3, 00:00: mouth [place] (D3-1999) 00 daily. Medical 50 mcg Take with Branch (2,000 food. unit) capsule Cholecalcif 2021-1 Yes [id number] 2000U Take 1 [facility] perfecto, 1-08 capsule by ity of Vitamin D3, 00:00: mouth [place] (D3-1999) 00 daily. Medical 50 mcg Take with Branch (2,000 food. unit) capsule Cholecalcif 2021-1 Yes [id number] 1999U Take 1 [facility] perfecto, 1-08 capsule by ity of Vitamin D3, 00:00: mouth [place] (D3-1999) 00 daily. Medical 50 mcg Take with Branch (2,000 food. unit) capsule Cholecalcif 2021-1 Yes [id number] 2000U Take 1 [facility] perfecto, 1-08 capsule by ity of Vitamin D3, 00:00: mouth [place] (D3-1999) 00 daily. Medical 50 mcg Take with Branch (2,000 food. unit) capsule Cholecalcif 2021-1 Yes [id number] 2000U Take 1 [facility] perfecto, 1-08 capsule by ity of Vitamin D3, 00:00: mouth [place] (D3-2000) 00 daily. Medical 50 mcg Take with Branch (2,000 food. unit) capsule Cholecalcif 2021-1 Yes [id number] 2000U Take 1 [facility] perfecto, 1-08 capsule by ity of Vitamin D3, 00:00: mouth [place] (D3-1999) 00 daily. Medical 50 mcg Take with Branch (2,000 food. unit) capsule Cholecalcif 2021-1 Yes [id number] 2000U Take 1 [facility] perfecto, 1-08 capsule by ity of Vitamin D3, 00:00: mouth [place] (D3-2000) 00 daily. Medical 50 mcg Take with Branch (2,000 food. unit) capsule Cholecalcif 2021-1 Yes [id number] 2000U Take 1 [facility] perfecto, 1-08 capsule by ity of Vitamin D3, 00:00: mouth [place] (D3-1999) 00 daily. Medical 50 mcg Take with Branch (2,000 food. unit) capsule Cholecalcif 2021-1 Yes [id number] 2000U Take 1 [facility] perfecto, 1-08 capsule by ity of Vitamin D3, 00:00: mouth [place] (D3-1999) 00 daily. Medical 50 mcg Take with Branch (2,000 food. unit) capsule Cholecalcif 2021-1 Yes [id number] 2000U Take 1 [facility] perfecto, 1-08 capsule by ity of Vitamin D3, 00:00: mouth [place] (D3-1999) 00 daily. Medical 50 mcg Take with Branch (2,000 food. unit) capsule Cholecalcif 2021-1 Yes [id number] 2000U Take 1 [facility] perfecto, 1-08 capsule by ity of Vitamin D3, 00:00: mouth [place] (D3-1999) 00 daily. Medical 50 mcg Take with Branch (2,000 food. unit) capsule Cholecalcif 2021-1 Yes [id number] 2000U Take 1 [facility] perfecto, 1-08 capsule by ity of Vitamin D3, 00:00: mouth [place] (D3-1999) 00 daily. Medical 50 mcg Take with Branch (2,000 food. unit) capsule Cholecalcif 2021-1 Yes [id number] 2000U Take 1 [facility] perfecto, 1-08 capsule by ity of Vitamin D3, 00:00: mouth [place] (D3-1999) 00 daily. Medical 50 mcg Take with Branch (2,000 food. unit) capsule Cholecalcif 2021-1 Yes [id number] 2000U Take 1 [facility] perfecto, 1-08 capsule by ity of Vitamin D3, 00:00: mouth [place] (D3-1999) 00 daily. Medical 50 mcg Take with Branch (2,000 food. unit) capsule Cholecalcif 2021-1 Yes [id number] 2000U Take 1 [facility] perfecto, 1-08 capsule by ity of Vitamin D3, 00:00: mouth [place] (D3-1999) 00 daily. Medical 50 mcg Take with Branch (2,000 food. unit) capsule Cholecalcif 2021-1 Yes [id number] 2000U Take 1 [facility] perfecto, 1-08 capsule by ity of Vitamin D3, 00:00: mouth [place] (D3-1999) 00 daily. Medical 50 mcg Take with Branch (2,000 food. unit) capsule Cholecalcif 2021-1 Yes [id number] 2000U Take 1 [facility] perfecto, 1-08 capsule by ity of Vitamin D3, 00:00: mouth [place] (D3-1999) 00 daily. Medical 50 mcg Take with Branch (2,000 food. unit) capsule Cholecalcif 2021-1 Yes [id number] 2000U Take 1 [facility] perfecto, 1-08 capsule by ity of Vitamin D3, 00:00: mouth [place] (D3-1999) 00 daily. Medical 50 mcg Take with Branch (2,000 food. unit) capsule Cholecalcif 2021-1 Yes [id number] 2000U Take 1 [facility] perfecto, 1-08 capsule by ity of Vitamin D3, 00:00: mouth [place] (D3-1999) 00 daily. Medical 50 mcg Take with Branch (2,000 food. unit) capsule Cholecalcif 2021-1 Yes [id number] 2000U Take 1 [facility] perfecto, 1-08 capsule by ity of Vitamin D3, 00:00: mouth [place] (D3-1999) 00 daily. Medical 50 mcg Take with Branch (2,000 food. unit) capsule Cholecalcif 2021-1 Yes [id number] 2000U Take 1 [facility] perfecto, 1-08 capsule by ity of Vitamin D3, 00:00: mouth [place] (D3-1999) 00 daily. Medical 50 mcg Take with Branch (2,000 food. unit) capsule Cholecalcif 2021-1 Yes [id number] 2000U Take 1 [facility] perfecto, 1-08 capsule by ity of Vitamin D3, 00:00: mouth [place] (D3-1999) 00 daily. Medical 50 mcg Take with Branch (2,000 food. unit) capsule Cholecalcif 2021-1 Yes [id number] 2000U Take 1 [facility] perfecto, 1-08 capsule by ity of Vitamin D3, 00:00: mouth [place] (D3-1999) 00 daily. Medical 50 mcg Take with Branch (2,000 food. unit) capsule Cholecalcif 2021-1 Yes [id number] 2000U Take 1 [facility] perfecto, 1-08 capsule by ity of Vitamin D3, 00:00: mouth [place] (D3-2000) 00 daily. Medical 50 mcg Take with Branch (2,000 food. unit) capsule Cholecalcif 2021-1 Yes [id number] 2000U Take 1 [facility] perfecto, 1-08 capsule by ity of Vitamin D3, 00:00: mouth [place] (D3-2000) 00 daily. Medical 50 mcg Take with Branch (2,000 food. unit) capsule Cholecalcif 2021-1 Yes [id number] 2000U Take 1 [facility] perfecto, 1-08 capsule by ity of Vitamin D3, 00:00: mouth [place] (D3-2000) 00 daily. Medical 50 mcg Take with Branch (2,000 food. unit) capsule Cholecalcif 2021-1 Yes [id number] 2000U Take 1 [facility] perfecto, 1-08 capsule by ity of Vitamin D3, 00:00: mouth [place] (D3-1999) 00 daily. Medical 50 mcg Take with Branch (2,000 food. unit) capsule Cholecalcif 2021-1 Yes [id number] 2000U Take 1 [facility] perfecto, 1-08 capsule by ity of Vitamin D3, 00:00: mouth [place] (D3-2000) 00 daily. Medical 50 mcg Take with Branch (2,000 food. unit) capsule Cholecalcif 2021-1 Yes [id number] 2000U Take 1 [facility] perfecto, 1-08 capsule by ity of Vitamin D3, 00:00: mouth [place] (D3-1999) 00 daily. Medical 50 mcg Take with Branch (2,000 food. unit) capsule Cholecalcif 2021-1 Yes [id number] 2000U Take 1 [facility] perfecto, 1-08 capsule by ity of Vitamin D3, 00:00: mouth [place] (D3-1999) 00 daily. Medical 50 mcg Take with Branch (2,000 food. unit) capsule Cholecalcif 2021-1 Yes [id number] 2000U Take 1 [facility] perfecto, 1-08 capsule by ity of Vitamin D3, 00:00: mouth [place] (D3-1999) 00 daily. Medical 50 mcg Take with Branch (2,000 food. unit) capsule Cholecalcif 2020-05 Yes [id number] 2000U Take 1 [facility] perfecto, 1-08 capsule by ity of Vitamin D3, 00:00: mouth [place] (D3-1999) 00 daily. Medical 50 mcg Take with Branch (2,000 food. unit) capsule Cholecalcif 2020-05 Yes [id number] 2000U Take 1 [facility] perfecto, 1-08 capsule by ity of Vitamin D3, 00:00: mouth [place] (D3-1999) 00 daily. Medical 50 mcg Take with Branch (2,000 food. unit) capsule Cholecalcif 2020-05 Yes [id number] 2000U Take 1 [facility] perfecto, 1-08 capsule by ity of Vitamin D3, 00:00: mouth [place] (D3-1999) 00 daily. Medical 50 mcg Take with Branch (2,000 food. unit) capsule Cholecalcif 2020-05 Yes [id number] 2000U Take 1 [facility] perfecto, 1-08 capsule by ity of Vitamin D3, 00:00: mouth [place] (D3-1999) 00 daily. Medical 50 mcg Take with Branch (2,000 food. unit) capsule Cholecalcif 2020-05 Yes [id number] 2000U Take 1 [facility] perfecto, 1-08 capsule by ity of Vitamin D3, 00:00: mouth [place] (D3-1999) 00 daily. Medical 50 mcg Take with Branch (2,000 food. unit) capsule atorvastati 2020-05- No 80mg Take 80 mg [facility] n (LIPITOR) 0-19 10-19 by mouth ity of 80 mg 09:56: 00:00 at [place] tablet 06 :00 bedtime. Medical Branch atorvastati 2020-05- No 80mg Take 80 mg [facility] n (LIPITOR) 0-19 10-19 by mouth ity of 80 mg 09:56: 00:00 at [place] tablet 06 :00 bedtime. Medical Branch icosapent 2020-05 Yes [id number] 2g Take 2 U nivers ethyL 0-19 capsules ity of (VASCEPA) 1 00:00: by mouth 2 [place] gram 00 (two) Medical capsule times Branch daily. icosapent 2020-05 Yes [id number] 2g Take 2 U nivers ethyL 0-19 capsules ity of (VASCEPA) 1 00:00: by mouth 2 [place] gram 00 (two) Medical capsule times Branch daily. icosapent 2020-05- No [id number] 2g Take 2 [facility] ethyL 0-19 09-26 capsules ity of (VASCEPA) 1 00:00: 00:00 by mouth 2 [place] gram 00 :00 (two) Medical capsule times Branch daily. icosapent 2020-05- No [id number] 2g Take 2 [facility] ethyL 0-19 09-26 capsules ity of (VASCEPA) 1 00:00: 00:00 by mouth 2 [place] gram 00 :00 (two) Medical capsule times Branch daily. NIFEdipine 2020-05- No 30mg Take 30 mg [facility] XL 0-12 10-12 by mouth 2 ity of (PROCARDIA 10:40: 00:00 (two) [place] XL) 30 mg 45 :00 times Medical 24 hr daily. Branch tablet NIFEdipine 2020-05 30mg Take 30 mg Univers XL 0-12 10-12 by mouth 2 ity of (PROCARDIA 10:40: 00:00 (two) [place] XL) 30 mg 45 :00 times Medical 24 hr daily. Branch tablet METFORMIN 2020-05- No [id number] TAKE 1 [facility] 500 mg 0-11 03-24 TABLET BY ity of tablet 00:00: 00:00 MOUTH [place] 00 :00 TWICE A Medical DAY WITH Branch MEALS METFORMIN 2020-05- No [id number] TAKE 1 [facility] 500 mg 0-11 03-24 TABLET BY ity of tablet 00:00: 00:00 MOUTH [place] 00 :00 TWICE A Medical DAY WITH Branch MEALS icosapent 2020- No 2g Take 2 Unive rs ethyL 9-22 10-19 capsules ity of (VASCEPA) 1 00:00: 00:00 by mouth 2 [place] gram 00 :00 (two) Medical capsule times Branch daily. icosapent 2020- No 2g Take 2 Unive rs ethyL 9-22 10-19 capsules ity of (VASCEPA) 1 00:00: 00:00 by mouth 2 [place] gram 00 :00 (two) Medical capsule times Branch daily. ezetimibe 2020- No 10mg Take 1 [facility] rs 10 mg 6-24 12-15 tablet by ity of tablet 00:00: 00:00 mouth [place] 00 :00 daily. Medical Branch ezetimibe 2020- No 10mg Take 1 [facility] rs 10 mg 6-24 12-15 tablet by ity of tablet 00:00: 00:00 mouth [place] 00 :00 daily. Medical Branch metFORMIN 2020- No [id number] 500mg Take 1 [facility] 500 mg 4-20 10-11 tablet by ity of tablet 00:00: 00:00 mouth 2 [place] 00 :00 (two) Medical times Branch daily with meals. metFORMIN 2020- No [id number] 500mg Take 1 [facility] 500 mg 4-20 10-11 tablet by ity of tablet 00:00: 00:00 mouth 2 [place] 00 :00 (two) Medical times Branch daily with meals. losartan 50 2019-05- No [id number] 50mg Take 1 [facility] mg tablet 05-14-02 tablet by ity of 00:00: 00:00 mouth 2 [place] 00 :00 (two) Medical times Branch daily. losartan 50 2019-05- No [id number] 50mg Take 1 [facility] mg tablet 05-14-02 tablet by ity of 00:00: 00:00 mouth 2 [place] 00 :00 (two) Medical times Branch daily. Incontinenc 2018-05 Yes Use as Univers e Pad, 1-22 directed; ity of L[place], Disp 00:00: ICD-10 [place] P[place] 00 DIAGNOSIS Medical CODE R32 Branch Diaper,Brie 2019 Yes Use as Univers f, 1-22 directed; ity of Adult,Dispo 00:00: ICD-10 [place] 00 DIAGNOSIS Medical (WINGS XXL CODE R32 Branc h ADULT BRIEF) Misc Incontinenc 2018-05 Yes Use as Univers e Pad, 1-22 directed; ity of Liner, Disp 00:00: ICD-10 [place] 00 DIAGNOSIS Medical CODE R32 Branch Diaper,Brie 2019- Yes [id number] Use as Univers f, 1-22 directed; ity of Adult,Dispo 00:00: ICD-10 [place] 00 DIAGNOSIS Medical (WINGS XXL CODE R32 Branc h ADULT BRIEF) Misc Incontinenc 2018-05 Yes Use as Univers e Pad, 1-22 directed; ity of Liner, Disp 00:00: ICD-10 [place] 00 DIAGNOSIS Medical CODE R32 Branch Diaper,Brie 2019- Yes [id number] Use as Univers f, -22 directed; ity of Adult,Dispo 00:00: ICD-10 [place] 00 DIAGNOSIS Medical (WINGS XXL CODE R32 Branc h ADULT BRIEF) Misc Incontinenc 2019- Yes [id number] Use as Univers e Pad, -22 directed; ity of Liner, Disp 00:00: ICD-10 [place] 00 DIAGNOSIS Medical CODE R32 Branch Diaper,Brie 2019- Yes [id number] Use as Univers f, -22 directed; ity of Adult,Dispo 00:00: ICD-10 [place] 00 DIAGNOSIS Medical (WINGS XXL CODE R32 Branc h ADULT BRIEF) Misc Incontinenc 2019 Yes [id number] Use as Univers e Pad, -22 directed; ity of Liner, Disp 00:00: ICD-10 [place] 00 DIAGNOSIS Medical CODE R32 Branch Diaper,Brie 2019- Yes [id number] Use as Univers f, -22 directed; ity of Adult,Dispo 00:00: ICD-10 [place] 00 DIAGNOSIS Medical (WINGS XXL CODE R32 Branc h ADULT BRIEF) Misc Incontinenc 2019 Yes [id number] Use as Univers e Pad, -22 directed; ity of Liner, Disp 00:00: ICD-10 [place] 00 DIAGNOSIS Medical CODE R32 Branch Diaper,Brie 2019- Yes [id number] Use as Univers f, -22 directed; ity of Adult,Dispo 00:00: ICD-10 [place] 00 DIAGNOSIS Medical (WINGS XXL CODE R32 Branc h ADULT BRIEF) Misc Incontinenc 2019- Yes [id number] Use as Univers e Pad, -22 directed; ity of Liner, Disp 00:00: ICD-10 [place] P[place] 00 DIAGNOSIS Medical CODE R32 Branch Diaper,Brie 2019- Yes [id number] Use as Univers f, 1-22 directed; ity of Adult,Dispo 00:00: ICD-10 [place] 00 DIAGNOSIS Medical (WINGS XXL CODE R32 Branc h ADULT BRIEF) [facility] Incontinenc 2018-05 Yes [id number] Use as Univers e Pad, -22 directed; ity of Liner, Disp 00:00: ICD-10 [place] P[place] 00 DIAGNOSIS Medical CODE R32 Branch Diaper,Brie 2019- Yes [id number] Use as Univers f, - directed; ity of Adult,Dispo 00:00: ICD-10 [place] 00 DIAGNOSIS Medical (WINGS XXL CODE R32 Branc h ADULT BRIEF) [facility] Incontinenc 2018-05 Yes Use as Univers e Pad, -22 directed; ity of Liner, Disp 00:00: ICD-10 [place] 00 DIAGNOSIS Medical CODE R32 Branch Diaper,Brie 2019 Yes Use as Univers f, - directed; ity of Adult,Dispo 00:00: ICD-10 [place] 00 DIAGNOSIS Medical (WINGS XXL CODE R32 Bran h ADULT BRIEF) [facility] Incontinenc 2018-05 Yes Use as Univers e Pad, - directed; ity of Liner, Disp 00:00: ICD-10 [place] 00 DIAGNOSIS Medical CODE R32 Branch Diaper,Brie 2019 Yes [id number] Use as Univers f, - directed; ity of Adult,Dispo 00:00: ICD-10 [place] 00 DIAGNOSIS Medical (WINGS XXL CODE R32 Branc h ADULT BRIEF) [facility] Incontinenc 2018-05 Yes Use as Univers e Pad, -22 directed; ity of Liner, Disp 00:00: ICD-10 [place] 00 DIAGNOSIS Medical CODE R32 Branch Diaper,Brie 2019 Yes [id number] Use as Univers f, -22 directed; ity of Adult,Dispo 00:00: ICD-10 [place] 00 DIAGNOSIS Medical (WINGS XXL CODE R32 Branc h ADULT BRIEF) [facility] Incontinenc 2018-05 Yes Use as Univers e Pad, -22 directed; ity of Liner, Disp 00:00: ICD-10 [place] 00 DIAGNOSIS Medical CODE R32 Branch Diaper,Brie 2019 Yes Use as Univers f, 1-22 directed; ity of Adult,Dispo 00:00: ICD-10 [place] 00 DIAGNOSIS Medical (WINGS XXL CODE R32 Branc h ADULT BRIEF) [facility] Incontinenc 2018-05 Yes Use as Univers e Pad, 1-22 directed; ity of Liner, Disp 00:00: ICD-10 [place] 00 DIAGNOSIS Medical CODE R32 Branch Diaper,Brie 2019 Yes Use as Univers f, 1-22 directed; ity of Adult,Dispo 00:00: ICD-10 [place] 00 DIAGNOSIS Medical (WINGS XXL CODE R32 Branc h ADULT BRIEF) Mis Incontinenc 2018-05 Yes Use as Univers e Pad, -22 directed; ity of Liner, Disp 00:00: ICD-10 [place] 00 DIAGNOSIS Medical CODE R32 Branch Diaper,Brie 2019 Yes Use as Univers f, -22 directed; ity of Adult,Dispo 00:00: ICD-10 [place] 00 DIAGNOSIS Medical (WINGS XXL CODE R32 Branc h ADULT BRIEF) [facility] Incontinenc 2018-05 Yes Use as Univers e Pad, 1-22 directed; ity of Liner, Disp 00:00: ICD-10 [place] 00 DIAGNOSIS Medical CODE R32 Branch Diaper,Brie 2019- Yes Use as Univers f, 1-22 directed; ity of Adult,Dispo 00:00: ICD-10 [place] 00 DIAGNOSIS Medical (WINGS XXL CODE R32 Branc h ADULT BRIEF) [facility] Incontinenc 2018-05 Yes Use as Univers e Pad, 1-22 directed; ity of Liner, Disp 00:00: ICD-10 [place] 00 DIAGNOSIS Medical CODE R32 Branch Diaper,Brie 2019- Yes [id number] Use as Univers f, 1-22 directed; ity of Adult,Dispo 00:00: ICD-10 [place] 00 DIAGNOSIS Medical (WINGS XXL CODE R32 Branc h ADULT BRIEF) [facility] Incontinenc 2018-05 Yes Use as Univers e Pad, 1-22 directed; ity of Liner, Disp 00:00: ICD-10 [place] 00 DIAGNOSIS Medical CODE R32 Branch Diaper,Brie 2019- Yes [id number] Use as Univers f, 1-22 directed; ity of Adult,Dispo 00:00: ICD-10 [place] 00 DIAGNOSIS Medical (WINGS XXL CODE R32 Branc h ADULT BRIEF) Misc Incontinenc 2019 Yes [id number] Use as Univers e Pad, -22 directed; ity of Liner, Disp 00:00: ICD-10 [place] 00 DIAGNOSIS Medical CODE R32 Branch Diaper,Brie 2019 Yes [id number] Use as Univers f, -22 directed; ity of Adult,Dispo 00:00: ICD-10 [place] 00 DIAGNOSIS Medical (WINGS XXL CODE R32 Branc h ADULT BRIEF) Misc Incontinenc 2018-05 Yes [id number] Use as Univers e Pad, -22 directed; ity of Liner, Disp 00:00: ICD-10 [place] 00 DIAGNOSIS Medical CODE R32 Branch Diaper,Brie 2019 Yes [id number] Use as Univers f, -22 directed; ity of Adult,Dispo 00:00: ICD-10 [place] 00 DIAGNOSIS Medical (WINGS XXL CODE R32 Branc h ADULT BRIEF) Misc Incontinenc 2019 Yes [id number] Use as Univers e Pad, -22 directed; ity of [place]iner, Disp 00:00: ICD-10 [place] 00 DIAGNOSIS Medical CODE R32 Branch Diaper,Brie 2019 Yes [id number] Use as Univers f, 1-22 directed; ity of Adult,Dispo 00:00: ICD-10 [place] 00 DIAGNOSIS Medical (WINGS XXL CODE R32 Branc h ADULT BRIEF) Misc Incontinenc 2019 Yes [id number] Use as Univers e Pad, 1-22 directed; ity of Liner, Disp 00:00: ICD-10 [place] 00 DIAGNOSIS Medical CODE R32 Branch Diaper,Brie 2019 Yes [id number] Use as Univers f, 1-22 directed; ity of Adult,Dispo 00:00: ICD-10 [place] 00 DIAGNOSIS Medical (WINGS XXL CODE R32 Branc h ADULT BRIEF) Misc Incontinenc 2019 Yes Use as Univers e Pad, 1-22 directed; ity of [place]iner, Disp 00:00: ICD-10 [place] 00 DIAGNOSIS Medical CODE R32 Branch Diaper,Brie 2019- Yes [id number] Use as Univers f, -22 directed; ity of Adult,Dispo 00:00: ICD-10 [place] 00 DIAGNOSIS Medical (WINGS XXL CODE R32 Branc h ADULT BRIEF) [facility] Incontinenc 2018-05 Yes Use as Univers e Pad, -22 directed; ity of Liner, Disp 00:00: ICD-10 [place] 00 DIAGNOSIS Medical CODE R32 Branch Diaper,Brie 2019- Yes Use as Univers f, -22 directed; ity of Adult,Dispo 00:00: ICD-10 [place] 00 DIAGNOSIS Medical (WINGS XXL CODE R32 Branc h ADULT BRIEF) [facility] Incontinenc 2018-05 Yes Use as Univers e Pad, -22 directed; ity of Liner, Disp 00:00: ICD-10 [place] 00 DIAGNOSIS Medical CODE R32 Branch Diaper,Brie 2019- Yes [id number] Use as Univers f, -22 directed; ity of Adult,Dispo 00:00: ICD-10 [place] 00 DIAGNOSIS Medical (WINGS XXL CODE R32 Branc h ADULT BRIEF) [facility] Incontinenc 2018-05 Yes Use as Univers e Pad, -22 directed; ity of Liner, Disp 00:00: ICD-10 [place] 00 DIAGNOSIS Medical CODE R32 Branch Diaper,Brie 2019- Yes [id number] Use as Univers f, 1-22 directed; ity of Adult,Dispo 00:00: ICD-10 [place] 00 DIAGNOSIS Medical (WINGS XXL CODE R32 Branc h ADULT BRIEF) [facility] Incontinenc 2018-05 Yes Use as Univers e Pad, 1-22 directed; ity of Liner, Disp 00:00: ICD-10 [place] 00 DIAGNOSIS Medical CODE R32 Branch Diaper,Brie 2019- Yes [id number] Use as Univers f, 1-22 directed; ity of Adult,Dispo 00:00: ICD-10 [place] 00 DIAGNOSIS Medical (WINGS XXL CODE R32 Branc h ADULT BRIEF) [facility] Incontinenc 2018-05 Yes [id number] Use as Univers e Pad, 1-22 directed; ity of Liner, Disp 00:00: ICD-10 [place] P[place] 00 DIAGNOSIS Medical CODE R32 Branch Diaper,Brie 2019- Yes [id number] Use as Univers f, -22 directed; ity of Adult,Dispo 00:00: ICD-10 [place] 00 DIAGNOSIS Medical (WINGS XXL CODE R32 Branc h ADULT BRIEF) [facility] Incontinenc 2018-05 Yes [id number] Use as Univers e Pad, -22 directed; ity of [place]iner, Disp 00:00: ICD-10 [place] P[place] 00 DIAGNOSIS Medical CODE R32 Branch Diaper,Brie 2019- Yes [id number] Use as Univers f, -22 directed; ity of Adult,Dispo 00:00: ICD-10 [place] 00 DIAGNOSIS Medical (WINGS XXL CODE R32 Branc h ADULT BRIEF) [facility] Incontinenc 2018-05 Yes [id number] Use as Univers e Pad, -22 directed; ity of Liner, Disp 00:00: ICD-10 [place] P[place] 00 DIAGNOSIS Medical CODE R32 Branch Diaper,Brie 2019- Yes [id number] Use as Univers f, -22 directed; ity of Adult,Dispo 00:00: ICD-10 [place] 00 DIAGNOSIS Medical (WINGS XXL CODE R32 Branc h ADULT BRIEF) [facility] Incontinenc 2018-05 Yes [id number] Use as Univers e Pad, 1-22 directed; ity of Liner, Disp 00:00: ICD-10 [place] P[place] 00 DIAGNOSIS Medical CODE R32 Branch Diaper,Brie 2019- Yes [id number] Use as Univers f, 1-22 directed; ity of Adult,Dispo 00:00: ICD-10 [place] 00 DIAGNOSIS Medical (WINGS XXL CODE R32 Branc h ADULT BRIEF) [facility] Incontinenc 2018-05 Yes [id number] Use as Univers e Pad, 1-22 directed; ity of [place]iner, Disp 00:00: ICD-10 [place] P[place] 00 DIAGNOSIS Medical CODE R32 Branch Diaper,Brie 2019-1 Yes [id number] Use as Univers f, 1-22 directed; ity of Adult,Dispo 00:00: ICD-10 [place] 00 DIAGNOSIS Medical (WINGS XXL CODE R32 Branc h ADULT BRIEF) Mis Incontinenc 2018-05 Yes Use as Univers e Pad, -22 directed; ity of [place], Disp 00:00: ICD-10 [place] P[place] 00 DIAGNOSIS Medical CODE R32 Branch Diaper,Brie 2019 Yes [id number] Use as Univers f, 1-22 directed; ity of Adult,Dispo 00:00: ICD-10 [place] 00 DIAGNOSIS Medical (WINGS XXL CODE R32 Branc h ADULT BRIEF) Mis Incontinenc 2018-05 Yes Use as Univers e Pad, -22 directed; ity of [place]iner, Disp 00:00: ICD-10 [place] 00 DIAGNOSIS Medical CODE R32 Branch Diaper,Brie 2018-05 Yes [id number] Use as Univers f, -22 directed; ity of Adult,Dispo 00:00: ICD-10 [place] 00 DIAGNOSIS Medical (WINGS XXL CODE R32 Branc h ADULT BRIEF) [facility] Incontinenc 2018-05 Yes [id number] Use as Univers e Pad, -22 directed; ity of [place]iner, Disp 00:00: ICD-10 [place] P[place] 00 DIAGNOSIS Medical CODE R32 Branch Diaper,Brie 2018-05 Yes [id number] Use as Univers f, -22 directed; ity of Adult,Dispo 00:00: ICD-10 [place] 00 DIAGNOSIS Medical (WINGS XXL CODE R32 Branc h ADULT BRIEF) [facility] Incontinenc 2018-05 Yes [id number] Use as Univers e Pad, 1-22 directed; ity of [place]iner, Disp 00:00: ICD-10 [place] P[place] 00 DIAGNOSIS Medical CODE R32 Branch Diaper,Brie 2019 Yes [id number] Use as Univers f, 1-22 directed; ity of Adult,Dispo 00:00: ICD-10 [place] 00 DIAGNOSIS Medical (WINGS XXL CODE R32 Branc h ADULT BRIEF) [facility] Incontinenc 2018-05 Yes [id number] Use as Univers e Pad, 1-22 directed; ity of [place]iner, Disp 00:00: ICD-10 [place] P[place] 00 DIAGNOSIS Medical CODE R32 Branch Diaper,Brie 2019- Yes [id number] Use as Univers f, 1-22 directed; ity of Adult,Dispo 00:00: ICD-10 [place] 00 DIAGNOSIS Medical (WINGS XXL CODE R32 Branc h ADULT BRIEF) Mis Incontinenc 2019 Yes [id number] Use as Univers e Pad, 1-22 directed; ity of [place], Disp 00:00: ICD-10 [place] 00 DIAGNOSIS Medical CODE R32 Branch Diaper,Brie 2019 Yes [id number] Use as Univers f, 1-22 directed; ity of Adult,Dispo 00:00: ICD-10 [place] 00 DIAGNOSIS Medical (WINGS XXL CODE R32 Branc h ADULT BRIEF) [facility] Incontinenc 2018-05 Yes [id number] Use as Univers e Pad, 1-22 directed; ity of [place]iner, Disp 00:00: ICD-10 [place] 00 DIAGNOSIS Medical CODE R32 Branch Diaper,Brie 2019 Yes [id number] Use as Univers f, 1-22 directed; ity of Adult,Dispo 00:00: ICD-10 [place] 00 DIAGNOSIS Medical (WINGS XXL CODE R32 Branc h ADULT BRIEF) [facility] Incontinenc 2018-05 Yes [id number] Use as Univers e Pad, 1-22 directed; ity of Liner, Disp 00:00: ICD-10 [place] 00 DIAGNOSIS Medical CODE R32 Branch Diaper,Brie 2019- Yes [id number] Use as Univers f, 1-22 directed; ity of Adult,Dispo 00:00: ICD-10 [place] 00 DIAGNOSIS Medical (WINGS XXL CODE R32 Branc h ADULT BRIEF) Misc Incontinenc 2019 Yes [id number] Use as Univers e Pad, 1-22 directed; ity of [place], Disp 00:00: ICD-10 [place] 00 DIAGNOSIS Medical CODE R32 Branch Diaper,Brie 2019 Yes [id number] Use as Univers f, 1-22 directed; ity of Adult,Dispo 00:00: ICD-10 [place] 00 DIAGNOSIS Medical (WINGS XXL CODE R32 Branc h ADULT BRIEF) [facility] Incontinenc 2018-05 Yes Use as Univers e Pad, -22 directed; ity of Liner, Disp 00:00: ICD-10 [place] P[place] 00 DIAGNOSIS Medical CODE R32 Branch Diaper,Brie 2019 Yes Use as Univers f, - directed; ity of Adult,Dispo 00:00: ICD-10 [place] 00 DIAGNOSIS Medical (WINGS XXL CODE R32 Branc h ADULT BRIEF) [facility] Incontinenc 2018-05 Yes Use as Univers e Pad, -22 directed; ity of Liner, Disp 00:00: ICD-10 [place] 00 DIAGNOSIS Medical CODE R32 Branch Diaper,Brie 2019 Yes Use as Univers f, - directed; ity of Adult,Dispo 00:00: ICD-10 [place] 00 DIAGNOSIS Medical (WINGS XXL CODE R32 Branc h ADULT BRIEF) [facility] Incontinenc 2018-05 Yes Use as Univers e Pad, - directed; ity of [place]iner, Disp 00:00: ICD-10 [place] 00 DIAGNOSIS Medical CODE R32 Branch Diaper,Brie 2019 Yes [id number] Use as Univers f, - directed; ity of Adult,Dispo 00:00: ICD-10 [place] 00 DIAGNOSIS Medical (WINGS XXL CODE R32 Branc h ADULT BRIEF) [facility] Incontinenc 2018-05 Yes Use as Univers e Pad, -22 directed; ity of [place]iner, Disp 00:00: ICD-10 [place] 00 DIAGNOSIS Medical CODE R32 Branch Diaper,Brie 2019 Yes [id number] Use as Univers f, -22 directed; ity of Adult,Dispo 00:00: ICD-10 [place] 00 DIAGNOSIS Medical (WINGS XXL CODE R32 Branc h ADULT BRIEF) [facility] Incontinenc 2018-05 Yes Use as Univers e Pad, -22 directed; ity of [place]iner, Disp 00:00: ICD-10 [place] 00 DIAGNOSIS Medical CODE R32 Branch Diaper,Brie 2019 Yes Use as Univers f, 1-22 directed; ity of Adult,Dispo 00:00: ICD-10 [place] 00 DIAGNOSIS Medical (WINGS XXL CODE R32 Br[facility] BRIEF) [facility] Use as Univers e Pad, 1-22 directed; ity of [place], Disp 00:00: ICD-10 [place] 00 DIAGNOSIS Medical CODE R32 Branch Diaper,Brie 2019 Yes [id number] Use as Univers f, -22 directed; ity of Adult,Dispo 00:00: ICD-10 [place] 00 DIAGNOSIS Medical (WINGS XXL CODE R32 Branc h ADULT BRIEF) [facility] Incontinenc 2018-05 Yes Use as Univers e Pad, -22 directed; ity of [place]iner, Disp 00:00: ICD-10 [place] P[place] 00 DIAGNOSIS Medical CODE R32 Branch Diaper,Brie 2019 Yes Use as Univers f, -22 directed; ity of Adult,Dispo 00:00: ICD-10 [place] 00 DIAGNOSIS Medical (WINGS XXL CODE R32 Branc h ADULT BRIEF) [facility] Incontinenc 2018-05 Yes [id number] Use as Univers e Pad, -22 directed; ity of [place], Disp 00:00: ICD-10 [place] P[place] 00 DIAGNOSIS Medical CODE R32 Branch Diaper,Brie 2019- Yes [id number] Use as Univers f, -22 directed; ity of Adult,Dispo 00:00: ICD-10 [place] 00 DIAGNOSIS Medical (WINGS XXL CODE R32 Branc h ADULT BRIEF) [facility] Incontinenc 2019 Yes [id number] Use as Univers e Pad, 1-22 directed; ity of [place], Disp 00:00: ICD-10 [place] 00 DIAGNOSIS Medical CODE R32 Branch Diaper,Brie 2019- Yes [id number] Use as Univers f, 1-22 directed; ity of Adult,Dispo 00:00: ICD-10 [place] 00 DIAGNOSIS Medical (WINGS XXL CODE R32 Branc h ADULT BRIEF) [facility] Incontinenc 2018-05 Yes Use as Univers e Pad, 1-22 directed; ity of [place]iner, Disp 00:00: ICD-10 [place] 00 DIAGNOSIS Medical CODE R32 Branch Diaper,Brie 2019- Yes [id number] Use as Univers f, 1-22 directed; ity of Adult,Dispo 00:00: ICD-10 [place] 00 DIAGNOSIS Medical (WINGS XXL CODE R32 Branc h ADULT BRIEF) Misc Incontinenc 2019 Yes [id number] Use as Univers e Pad, -22 directed; ity of [place], Disp 00:00: ICD-10 [place] 00 DIAGNOSIS Medical CODE R32 Branch Diaper,Brie 2019 Yes [id number] Use as Univers f, -22 directed; ity of Adult,Dispo 00:00: ICD-10 [place] 00 DIAGNOSIS Medical (WINGS XXL CODE R32 Branc h ADULT BRIEF) Misc Incontinenc 2018-05 Yes Use as Univers e Pad, -22 directed; ity of [place], Disp 00:00: ICD-10 [place] 00 DIAGNOSIS Medical CODE R32 Branch Diaper,Brie 2019 Yes [id number] Use as Univers f, -22 directed; ity of Adult,Dispo 00:00: ICD-10 [place] 00 DIAGNOSIS Medical (WINGS XXL CODE R32 Branc h ADULT BRIEF) Misc Incontinenc 2018-05 Yes [id number] Use as Univers e Pad, -22 directed; ity of [place], Disp 00:00: ICD-10 [place] P[place] 00 DIAGNOSIS Medical CODE R32 Branch Diaper,Brie 2019 Yes [id number] Use as Univers f, -22 directed; ity of Adult,Dispo 00:00: ICD-10 [place] 00 DIAGNOSIS Medical (WINGS XXL CODE R32 Branc h ADULT BRIEF) Misc Incontinenc 2019 Yes [id number] Use as Univers e Pad, -22 directed; ity of [place], Disp 00:00: ICD-10 [place] 00 DIAGNOSIS Medical CODE R32 Branch Diaper,Brie 2019 Yes [id number] Use as Univers f, 1-22 directed; ity of Adult,Dispo 00:00: ICD-10 [place] 00 DIAGNOSIS Medical (WINGS XXL CODE R32 Branc h ADULT BRIEF) Misc Incontinenc 2018-05 Yes [id number] Use as Univers e Pad, 1-22 directed; ity of [place], Disp 00:00: ICD-10 [place] 00 DIAGNOSIS Medical CODE R32 Branch Diaper,Brie 2019- Yes [id number] Use as Univers f, 1-22 directed; ity of Adult,Dispo 00:00: ICD-10 [place] 00 DIAGNOSIS Medical (WINGS XXL CODE R32 Branc h ADULT BRIEF) [facility] Yes [id number] Use as Univers e Pad, 1-22 directed; ity of [place]iner, Disp 00:00: ICD-10 [place] 00 DIAGNOSIS Medical CODE R32 Branch Diaper,Brie 2019 Yes [id number] Use as Univers f, 1-22 directed; ity of Adult,Dispo 00:00: ICD-10 [place] 00 DIAGNOSIS Medical (WINGS XXL CODE R32 Branc h ADULT BRIEF) [facility] Incontinenc 2018-05 Yes [id number] Use as Univers e Pad, 1-22 directed; ity of Liner, Disp 00:00: ICD-10 [place] 00 DIAGNOSIS Medical CODE R32 Branch Diaper,Brie 2018-05 Yes [id number] Use as Univers f, 1-22 directed; ity of Adult,Dispo 00:00: ICD-10 [place] 00 DIAGNOSIS Medical (WINGS XXL CODE R32 Branc h ADULT BRIEF) [facility] Immunizations Ordered Filled Immunization Date Status Comments [facility] e Immunization Name Name Pneumococcal 2022-09-08 Completed Universit y of Conjugate, PCV20 00:00:00 [facility] dical (Prevnar 20) Branch Pneumococcal 20 2022-09-08 Completed Universit y of Conjugate, PCV20 00:00:00 [facility] dical (Prevnar 20) Branch Pneumococcal 20 2022-09-08 Completed Universit y of Conjugate, PCV20 00:00:00 [facility] dical (Prevnar 20) Branch Pneumococcal 20 2022-09-08 Completed Universit y of Conjugate, PCV20 00:00:00 [facility] dical (Prevnar 20) Branch Pneumococcal 20 2022-09-08 Completed Universit y of Conjugate, PCV20 00:00:00 [facility] dical (Prevnar 20) Branch Pneumococcal 20 2022-09-08 Completed Universit y of Conjugate, PCV20 00:00:00 [place] [facility] dical (Prevnar 20) Branch Pneumococcal 20 2022-09-08 Completed Universit y of Conjugate, PCV20 00:00:00 [place] [facility] dical (Prevnar 20) Branch Pneumococcal 20 2022-09-08 Completed Universit y of Conjugate, PCV20 00:00:00 [place] [facility] dical (Prevnar 20) Branch Pneumococcal 20 2022-09-08 Completed Universit y of Conjugate, PCV20 00:00:00 [place] [facility] dical (Prevnar 20) Branch Pneumococcal 20 2022-09-08 Completed Universit y of Conjugate, PCV20 00:00:00 [place] [facility] dical (Prevnar 20) Branch Influenza Virus 2022-01-26 Completed Universit y of Vaccine,quad 00:00:00 [place] [facility] l Im,preserve Free Branch 65+ SARS-COV-2 COVID-19 2022-01-26 Completed Unive rsity of CLARISSA-SUCROSE 00:00:00 [place] [facility] l VACCINE 12 YRS+, Branch BIVALENT 0.3ML, IM, (PFIZER MEZA TOP BOOSTER) Influenza Virus 2022-01-26 Completed Universit y of Vaccine,quad 00:00:00 [place] [facility] Im,preserve Free Branch 65+ SARS-COV-2 COVID-19 2022-01-26 Completed Unive rsity of CLARISSA-SUCROSE 00:00:00 [place] [facility]ica l VACCINE 12 YRS+, Branch BIVALENT 0.3ML, IM, (PFIZER MEZA TOP BOOSTER) Influenza Virus 2022-01-26 Completed Universit y of Vaccine,quad 00:00:00 [place] [facility] Im,preserve Free Branch 65+ SARS-COV-2 COVID-19 2022-01-26 Completed Unive rsity of CLARISSA-SUCROSE 00:00:00 [place] [facility]ica l VACCINE 12 YRS+, Branch BIVALENT 0.3ML, IM, (PFIZER MEZA TOP BOOSTER) Influenza Virus 2022-01-26 Completed Universit y of Vaccine,quad 00:00:00 [place] [facility]ica l Im,preserve Free Branch 65+ SARS-COV-2 COVID-19 2022-01-26 Completed Unive rsity of CLARISSA-SUCROSE 00:00:00 [place] Medica l VACCINE 12 YRS+, Branch BIVALENT 0.3ML, IM, (PFIZER MEZA TOP BOOSTER) Influenza Virus 2022-01-26 Completed [facility]+ SARS-COV-2 COVID-19 2022-01-26 Completed [facility] 00:00:00 [facility]ACC[facility] Y[facility]+, Branch BIVALENT 0.3ML, IM, (PFIZER MEZA TOP BOOSTER) Influenza Virus 2022-01-26 Completed [facility] 00:00:00 [facility] 65+ SARS-COV-2 COVID-19 2022-01-26 Completed [facility] 00:00:00 [facility] YRS+, [facility] BIVALENT 0.3ML, IM, (PFIZER MEZA TOP BOOSTER) Influenza Virus 2022-01-26 Completed [facility] 00:00:00 [facility] 65+ SARS-COV-2 COVID-19 2022-01-26 Completed [facility] 00:00:00 [facility]INE [facility] YRS+, Branch BIVALENT 0.3ML, IM, (PFIZER MEZA TOP BOOSTER) Influenza Virus 2022-01-26 Completed [facility] 00:00:00 [facility] 65+ SARS-COV-2 COVID-19 2022-01-26 Completed [facility] 00:00:00 [facility]INE [facility] YRS+, Branch BIVALENT 0.3ML, IM, (PFIZER MEZA TOP BOOSTER) Influenza Virus 2022-01-26 Completed [facility] 00:00:00 [facility] 65+ SARS-COV-2 COVID-19 2022-01-26 Completed [facility] 00:00:00 [facility]ACCINE 12 YRS+, Branch BIVALENT 0.3ML, IM, (PFIZER MEZA TOP BOOSTER) Influenza Virus 2022-01-26 Completed [facility] 00:00:00 [facility] 65+ SARS-COV-2 COVID-19 2022-01-26 Completed [facility] 00:00:00 [facility]ACCINE [facility] YRS+, Branch BIVALENT 0.3ML, IM, (PFIZER MEZA TOP BOOSTER) Influenza Virus 2022-01-26 Completed [facility] 00:00:00 [facility] 65+ SARS-COV-2 COVID-19 2022-01-26 Completed [facility] 00:00:00 [facility]INE 12 YRS+, Branch BIVALENT 0.3ML, IM, (PFIZER MEZA TOP BOOSTER) Influenza Virus 2022-01-26 Completed [facility] 00:00:00 [facility] 65+ SARS-COV-2 COVID-19 2022-01-26 Completed [facility] 00:00:00 [facility]ACCINE 12 YRS+, Branch BIVALENT 0.3ML, IM, (PFIZER MEZA TOP BOOSTER) Influenza Virus 2022-01-26 Completed [facility] 00:00:00 [facility] 65+ SARS-COV-2 COVID-19 2022-01-26 Completed [facility] 00:00:00 [facility]INE 12 YRS+, Branch BIVALENT 0.3ML, IM, (PFIZER MEZA TOP BOOSTER) Influenza Virus 2022-01-26 Completed [facility] 00:00:00 [facility] 65+ SARS-COV-2 COVID-19 2022-01-26 Completed [facility] 00:00:00 [facility]INE 12 YRS+, Branch BIVALENT 0.3ML, IM, (PFIZER MEZA TOP BOOSTER) Influenza Virus 2022-01-26 Completed [facility] 00:00:00 [facility] 65+ SARS-COV-2 COVID-19 2022-01-26 Completed [facility] 00:00:00 [facility]INE 12 YRS+, Branch BIVALENT 0.3ML, IM, (PFIZER MEZA TOP BOOSTER) Influenza Virus 2022-01-26 Completed [facility] 00:00:00 [facility] 65+ SARS-COV-2 COVID-19 2022-01-26 Completed [facility] 00:00:00 [facility]INE 12 YRS+, Branch BIVALENT 0.3ML, IM, (PFIZER MEZA TOP BOOSTER) Influenza Virus 2022-01-26 Completed [facility] 00:00:00 [facility] 65+ SARS-COV-2 COVID-19 2022-01-26 Completed [facility] 00:00:00 [facility]INE 12 YRS+, Branch BIVALENT 0.3ML, IM, (PFIZER MEZA TOP BOOSTER) Influenza Virus 2022-01-26 Completed [facility] 00:00:00 [facility] 65+ SARS-COV-2 COVID-19 2022-01-26 Completed [facility] 00:00:00 [facility]INE 12 YRS+, Branch BIVALENT 0.3ML, IM, (PFIZER MEZA TOP BOOSTER) Influenza Virus 2022-01-26 Completed [facility] 00:00:00 [facility] 65+ SARS-COV-2 COVID-19 2022-01-26 Completed [facility] 00:00:00 [facility]INE 12 YRS+, Branch BIVALENT 0.3ML, IM, (PFIZER MEZA TOP BOOSTER) Influenza Virus 2022-01-26 Completed [facility] 00:00:00 [facility] 65+ SARS-COV-2 COVID-19 2022-01-26 Completed [facility] 00:00:00 [facility]INE [facility] YRS+, Branch BIVALENT 0.3ML, IM, (PFIZER MEZA TOP BOOSTER) Influenza Virus 2022-01-26 Completed [facility] 00:00:00 [facility] 65+ SARS-COV-2 COVID-19 2022-01-26 Completed [facility] 00:00:00 [facility]INE 12 YRS+, Branch BIVALENT 0.3ML, IM, (PFIZER MEZA TOP BOOSTER) Influenza Virus 2022-01-26 Completed [facility] 00:00:00 [facility] 65+ SARS-COV-2 COVID-19 2022-01-26 Completed [facility] 00:00:00 [facility]INE 12 YRS+, Branch BIVALENT 0.3ML, IM, (PFIZER MEZA TOP BOOSTER) Influenza Virus 2022-01-26 Completed [facility] 00:00:00 [facility] 65+ SARS-COV-2 COVID-19 2022-01-26 Completed [facility] 00:00:00 [facility]INE 12 YRS+, Branch BIVALENT 0.3ML, IM, (PFIZER MEZA TOP BOOSTER) Influenza Virus 2022-01-26 Completed [facility] 00:00:00 [facility] 65+ SARS-COV-2 COVID-19 2022-01-26 Completed [facility] 00:00:00 [facility]INE 12 YRS+, Branch BIVALENT 0.3ML, IM, (PFIZER MEZA TOP BOOSTER) Influenza Virus 2022-01-26 Completed [facility] 00:00:00 [facility] 65+ SARS-COV-2 COVID-19 2022-01-26 Completed [facility] 00:00:00 [facility]INE 12 YRS+, Branch BIVALENT 0.3ML, IM, (PFIZER MEZA TOP BOOSTER) Influenza Virus 2022-01-26 Completed [facility],quad 00:00:00 [facility] 65+ SARS-COV-2 COVID-19 2022-01-26 Completed [facility] 00:00:00 [facility]INE 12 YRS+, Branch BIVALENT 0.3ML, IM, (PFIZER MEZA TOP BOOSTER) Influenza Virus 2022-01-26 Completed [facility],quad 00:00:00 [facility] 65+ SARS-COV-2 COVID-19 2022-01-26 Completed [facility] 00:00:00 [facility] YRS+, Branch BIVALENT 0.3ML, IM, (PFIZER MEZA TOP BOOSTER) Influenza Virus 2022-01-26 Completed [facility] 00:00:00 [facility] 65+ SARS-COV-2 COVID-19 2022-01-26 Completed [facility] 00:00:00 [facility]ACCINE 12 YRS+, Branch BIVALENT 0.3ML, IM, (PFIZER MEZA TOP BOOSTER) Influenza Virus 2022-01-26 Completed [facility],quad 00:00:00 [facility] 65+ SARS-COV-2 COVID-19 2022-01-26 Completed [facility] 00:00:00 [facility]INE 12 YRS+, Branch BIVALENT 0.3ML, IM, (PFIZER MEZA TOP BOOSTER) Influenza Virus 2022-01-26 Completed [facility],quad 00:00:00 [facility] 65+ SARS-COV-2 COVID-19 2022-01-26 Completed [facility] 00:00:00 [facility]INE 12 YRS+, Branch BIVALENT 0.3ML, IM, (PFIZER MEZA TOP BOOSTER) Influenza Virus 2022-01-26 Completed [facility],quad 00:00:00 [facility] 65+ SARS-COV-2 COVID-19 2022-01-26 Completed [facility] 00:00:00 [facility]ACCINE 12 YRS+, Branch BIVALENT 0.3ML, IM, (PFIZER MEZA TOP BOOSTER) Influenza Virus 2022-01-26 Completed [facility],quad 00:00:00 [facility] 65+ SARS-COV-2 COVID-19 2022-01-26 Completed [facility] 00:00:00 [facility] VACCINE 12 YRS+, Branch BIVALENT 0.3ML, IM, (PFIZER MEZA TOP BOOSTER) Influenza Virus 2022-01-26 Completed [facility],quad 00:00:00 [facility] 65+ SARS-COV-2 COVID-19 2022-01-26 Completed [facility] 00:00:00 [place] [facility] VACCINE 12 YRS+, Branch BIVALENT 0.3ML, IM, (PFIZER MEZA TOP BOOSTER) Influenza Virus 2022-01-26 Completed [facility],quad 00:00:00 [facility] 65+ SARS-COV-2 COVID-19 2022-01-26 Completed [facility] 00:00:00 [facility]ACCINE 12 YRS+, Branch BIVALENT 0.3ML, IM, (PFIZER MEZA TOP BOOSTER) Influenza Virus 2022-01-26 Completed [facility],quad 00:00:00 [facility] 65+ SARS-COV-2 COVID-19 2022-01-26 Completed [facility] 00:00:00 [facility] VACCINE 12 YRS+, Branch BIVALENT 0.3ML, IM, (PFIZER MEZA TOP BOOSTER) Influenza Virus 2022-01-26 Completed [facility],quad 00:00:00 [facility] 65+ SARS-COV-2 COVID-19 2022-01-26 Completed [facility] 00:00:00 [place] [facility] VACCINE 12 YRS+, Branch BIVALENT 0.3ML, IM, (PFIZER MEZA TOP BOOSTER) Influenza Virus 2022-01-26 Completed [facility]ine,quad 00:00:00 [facility] 65+ SARS-COV-2 COVID-19 2022-01-26 Completed [facility] 00:00:00 [place] [facility] VACCINE 12 YRS+, Branch BIVALENT 0.3ML, IM, (PFIZER MEZA TOP BOOSTER) Influenza Virus 2022-01-26 Completed [facility],quad 00:00:00 [facility] 65+ SARS-COV-2 COVID-19 2022-01-26 Completed [facility] 00:00:00 [place] [facility]ACCINE 12 YRS+, Branch BIVALENT 0.3ML, IM, (PFIZER MEZA TOP BOOSTER) Influenza Virus 2022-01-26 Completed [facility],quad 00:00:00 [facility] 65+ SARS-COV-2 COVID-19 2022-01-26 Completed [facility] 00:00:00 [facility] VACCINE 12 YRS+, Branch BIVALENT 0.3ML, IM, (PFIZER MEZA TOP BOOSTER) Influenza Virus 2022-01-26 Completed [facility]ine,quad 00:00:00 [facility] 65+ SARS-COV-2 COVID-19 2022-01-26 Completed [facility] 00:00:00 [place] [facility] VACCINE 12 YRS+, Branch BIVALENT 0.3ML, IM, (PFIZER MEZA TOP) Influenza Virus 2022-01-26 Completed [facility],quad 00:00:00 [facility] 65+ SARS-COV-2 COVID-19 2022-01-26 Completed [facility] 00:00:00 [facility]ACCINE 12 YRS+, Branch BIVALENT 0.3ML, IM, (PFIZER MEZA TOP) Influenza Virus 2022-01-26 Completed [facility],quad 00:00:00 [facility] 65+ SARS-COV-2 COVID-19 2022-01-26 Completed [facility] 00:00:00 [facility] VACCINE 12 YRS+, Branch BIVALENT 0.3ML, IM, (PFIZER MEZA TOP) Influenza Virus 2022-01-26 Completed [facility],quad 00:00:00 [facility] 65+ SARS-COV-2 COVID-19 2022-01-26 Completed [facility] 00:00:00 [place] [facility] VACCINE 12 YRS+, Branch BIVALENT 0.3ML, IM, (PFIZER MEZA TOP) Influenza Virus 2022-01-26 Completed [facility],quad 00:00:00 [facility] 65+ SARS-COV-2 COVID-19 2022-01-26 Completed [facility] 00:00:00 [place] [facility] VACCINE 12 YRS+, Branch BIVALENT 0.3ML, IM, (PFIZER MEZA TOP) Influenza Virus 2022-01-26 Completed [facility],quad 00:00:00 [facility] 65+ SARS-COV-2 COVID-19 2022-01-26 Completed [facility] 00:00:00 [facility]ACCINE 12 YRS+, Branch BIVALENT 0.3ML, IM, (PFIZER MEZA TOP) Influenza Virus 2022-01-26 Completed [facility],quad 00:00:00 [facility] 65+ SARS-COV-2 COVID-19 2022-01-26 Completed [facility] 00:00:00 [facility]ACCINE 12 YRS+, Branch BIVALENT 0.3ML, IM, (PFIZER MEZA TOP) Influenza Virus 2022-01-26 Completed [facility]ine,quad 00:00:00 [facility] 65+ SARS-COV-2 COVID-19 2022-01-26 Completed [facility] 00:00:00 [place] [facility] VACCINE 12 YRS+, Branch BIVALENT 0.3ML, IM, (PFIZER MEZA TOP) Influenza Virus 2022-01-26 Completed [facility]ine,quad 00:00:00 [facility] 65+ SARS-COV-2 COVID-19 2022-01-26 Completed [facility] 00:00:00 [place] [facility]ACCINE 12 YRS+, Branch BIVALENT 0.3ML, IM, (PFIZER MEZA TOP) Influenza Virus 2022-01-26 Completed [facility],quad 00:00:00 [facility] 65+ SARS-COV-2 COVID-19 2022-01-26 Completed [facility]CR[facility] 00:00:00 [place] [facility]ACCINE 12 YRS+, Branch BIVALENT 0.3ML, IM, (PFIZER MEZA TOP) Influenza Virus 2022-01-26 Completed [facility]ine,quad 00:00:00 [facility] 65+ SARS-COV-2 COVID-19 2022-01-26 Completed [facility] 00:00:00 [place] [facility]ACCINE 12 YRS+, Branch BIVALENT 0.3ML, IM, (PFIZER MEZA TOP) Influenza Virus 2022-01-26 Completed [facility]ine,quad 00:00:00 [facility] 65+ SARS-COV-2 COVID-19 2022-01-26 Completed [facility] 00:00:00 [place] [facility]ACCINE 12 YRS+, Branch BIVALENT 0.3ML, IM, (PFIZER MEZA TOP) Influenza Virus 2022-01-26 Completed [facility] Vaccine,quad 00:00:00 [facility] 65+ SARS-COV-2 COVID-19 2022-01-26 Completed [facility] 00:00:00 [place] [facility]ACCINE 12 YRS+, Branch BIVALENT 0.3ML, IM, (PFIZER MEZA TOP) Influenza Virus 2022-01-26 Completed [facility]ine,quad 00:00:00 [place] [facility] 65+ SARS-COV-2 COVID-19 2022-01-26 Completed [facility] 00:00:00 [place] [facility]ACCINE 12 YRS+, Branch BIVALENT 0.3ML, IM, (PFIZER MEZA TOP) Influenza Virus 2021-04-08 Completed [facility],quad 00:00:00 [place] [facility] 65+ SARS-COV-2 COVID-19 2021-04-08 Completed [facility] of PFIZER VACCINE 00:00:00 [facility] Influenza Virus 2021-04-08 Completed [facility] Vaccine,quad 00:00:00 [place] [facility] 65+ SARS-COV-2 COVID-19 2021-04-08 Completed [facility] of PFIZER VACCINE 00:00:00 [facility] Influenza Virus 2021-04-08 Completed [facility] Vaccine,quad 00:00:00 [place] [facility] 65+ SARS-COV-2 COVID-19 2021-04-08 Completed [facility] of PFIZER VACCINE 00:00:00 [facility] Influenza Virus 2021-04-08 Completed [facility] Vaccine,quad 00:00:00 [place] [facility] 65+ SARS-COV-2 COVID-19 2021-04-08 Completed [facility] of PFIZER VACCINE 00:00:00 [facility] Influenza Virus 2021-04-08 Completed [facility] Vaccine,quad 00:00:00 [place] [facility] 65+ SARS-COV-2 COVID-19 2021-04-08 Completed [facility] of PFIZER VACCINE 00:00:00 [facility] Influenza Virus 2021-04-08 Completed [facility] Vaccine,quad 00:00:00 [place] [facility] 65+ SARS-COV-2 COVID-19 2021-04-08 Completed [facility] of PFIZER VACCINE 00:00:00 [place] [facility] Influenza Virus 2021-04-08 Completed [facility] Vaccine,quad 00:00:00 [place] [facility] 65+ SARS-COV-2 COVID-19 2021-04-08 Completed [facility] of PFIZER VACCINE 00:00:00 [facility] Influenza Virus 2021-04-08 Completed [facility] Vaccine,quad 00:00:00 [place] [facility] 65+ SARS-COV-2 COVID-19 2021-04-08 Completed [facility] of PFIZER VACCINE 00:00:00 [facility] Influenza Virus 2021-04-08 Completed [facility] Vaccine,quad 00:00:00 [place] [facility] 65+ SARS-COV-2 COVID-19 2021-04-08 Completed [facility] of PFIZER VACCINE 00:00:00 [facility] Influenza Virus 2021-04-08 Completed [facility] Vaccine,quad 00:00:00 [place] [facility] 65+ SARS-COV-2 COVID-19 2021-04-08 Completed [facility] of PFIZER VACCINE 00:00:00 [facility] Influenza Virus 2021-04-08 Completed [facility] Vaccine,quad 00:00:00 [place] [facility] 65+ SARS-COV-2 COVID-19 2021-04-08 Completed [facility] of PFIZER VACCINE 00:00:00 [facility] Influenza Virus 2021-04-08 Completed [facility] Vaccine,quad 00:00:00 [place] [facility] 65+ SARS-COV-2 COVID-19 2021-04-08 Completed [facility] of PFIZER VACCINE 00:00:00 [facility] Influenza Virus 2021-04-08 Completed [facility] Vaccine,quad 00:00:00 [place] [facility] 65+ SARS-COV-2 COVID-19 2021-04-08 Completed [facility] of PFIZER VACCINE 00:00:00 [facility] Influenza Virus 2021-04-08 Completed [facility] Vaccine,quad 00:00:00 [place] [facility] 65+ SARS-COV-2 COVID-19 2021-04-08 Completed [facility] of PFIZER VACCINE 00:00:00 [facility] Influenza Virus 2021-04-08 Completed [facility] Vaccine,quad 00:00:00 [place] [facility] 65+ SARS-COV-2 COVID-19 2021-04-08 Completed [facility] of PFIZER VACCINE 00:00:00 [facility] Influenza Virus 2021-04-08 Completed [facility] Vaccine,quad 00:00:00 [place] [facility] 65+ SARS-COV-2 COVID-19 2021-04-08 Completed [facility] of PFIZER VACCINE 00:00:00 [facility] Influenza Virus 2021-04-08 Completed [facility] Vaccine,quad 00:00:00 [place] [facility] 65+ SARS-COV-2 COVID-19 2021-04-08 Completed [facility] of PFIZER VACCINE 00:00:00 [facility] Influenza Virus 2021-04-08 Completed [facility] Vaccine,quad 00:00:00 [place] [facility] 65+ SARS-COV-2 COVID-19 2021-04-08 Completed [facility] of PFIZER VACCINE 00:00:00 [facility] Influenza Virus 2021-04-08 Completed [facility] Vaccine,quad 00:00:00 [place] [facility] 65+ SARS-COV-2 COVID-19 2021-04-08 Completed [facility] of PFIZER VACCINE 00:00:00 [facility] Influenza Virus 2021-04-08 Completed [facility] Vaccine,quad 00:00:00 [place] [facility] 65+ SARS-COV-2 COVID-19 2021-04-08 Completed [facility] of PFIZER VACCINE 00:00:00 [facility] Influenza Virus 2021-04-08 Completed [facility] Vaccine,quad 00:00:00 [place] [facility] 65+ SARS-COV-2 COVID-19 2021-04-08 Completed [facility] of PFIZER VACCINE 00:00:00 [facility] Influenza Virus 2021-04-08 Completed [facility] Vaccine,quad 00:00:00 [place] [facility] 65+ SARS-COV-2 COVID-19 2021-04-08 Completed [facility] of PFIZER VACCINE 00:00:00 [place] [facility] Influenza Virus 2021-04-08 Completed [facility] Vaccine,quad 00:00:00 [place] [facility] 65+ SARS-COV-2 COVID-19 2021-04-08 Completed [facility] of PFIZER VACCINE 00:00:00 [facility] Influenza Virus 2021-04-08 Completed [facility] Vaccine,quad 00:00:00 [place] [facility] 65+ SARS-COV-2 COVID-19 2021-04-08 Completed [facility] of PFIZER VACCINE 00:00:00 [facility] Influenza Virus 2021-04-08 Completed [facility] Vaccine,quad 00:00:00 [place] [facility] 65+ SARS-COV-2 COVID-19 2021-04-08 Completed [facility] of PFIZER VACCINE 00:00:00 [facility] Influenza Virus 2021-04-08 Completed [facility] Vaccine,quad 00:00:00 [place] [facility] 65+ SARS-COV-2 COVID-19 2021-04-08 Completed [facility] of PFIZER VACCINE 00:00:00 [facility] Influenza Virus 2021-04-08 Completed [facility] Vaccine,quad 00:00:00 [place] [facility] 65+ SARS-COV-2 COVID-19 2021-04-08 Completed [facility] of PFIZER VACCINE 00:00:00 [facility] Influenza Virus 2021-04-08 Completed [facility] Vaccine,quad 00:00:00 [place] [facility] 65+ SARS-COV-2 COVID-19 2021-04-08 Completed [facility] of PFIZER VACCINE 00:00:00 [place] [facility] Influenza Virus 2021-04-08 Completed [facility] Vaccine,quad 00:00:00 [place] [facility] 65+ SARS-COV-2 COVID-19 2021-04-08 Completed [facility] of PFIZER VACCINE 00:00:00 [place] [facility] Influenza Virus 2021-04-08 Completed [facility] Vaccine,quad 00:00:00 [place] [facility] 65+ SARS-COV-2 COVID-19 2021-04-08 Completed [facility] of PFIZER VACCINE 00:00:00 [facility] Influenza Virus 2021-04-08 Completed [facility] Vaccine,quad 00:00:00 [place] [facility] 65+ SARS-COV-2 COVID-19 2021-04-08 Completed [facility] of PFIZER VACCINE 00:00:00 [facility] Influenza Virus 2021-04-08 Completed [facility] Vaccine,quad 00:00:00 [place] [facility] 65+ SARS-COV-2 COVID-19 2021-04-08 Completed [facility] of PFIZER VACCINE 00:00:00 [facility] Influenza Virus 2021-04-08 Completed [facility] Vaccine,quad 00:00:00 [place] [facility] 65+ SARS-COV-2 COVID-19 2021-04-08 Completed [facility] of PFIZER VACCINE 00:00:00 [facility] Influenza Virus 2021-04-08 Completed [facility] Vaccine,quad 00:00:00 [place] [facility] 65+ SARS-COV-2 COVID-19 2021-04-08 Completed [facility] of PFIZER VACCINE 00:00:00 [facility] Influenza Virus 2021-04-08 Completed [facility] Vaccine,quad 00:00:00 [place] [facility] 65+ SARS-COV-2 COVID-19 2021-04-08 Completed [facility] of PFIZER VACCINE 00:00:00 [facility] Influenza Virus 2021-04-08 Completed [facility] Vaccine,quad 00:00:00 [place] [facility] 65+ SARS-COV-2 COVID-19 2021-04-08 Completed [facility] of PFIZER VACCINE 00:00:00 [facility] Influenza Virus 2021-04-08 Completed [facility] Vaccine,quad 00:00:00 [place] [facility] 65+ SARS-COV-2 COVID-19 2021-04-08 Completed [facility] of PFIZER VACCINE 00:00:00 [facility] Influenza Virus 2021-04-08 Completed [facility] Vaccine,quad 00:00:00 [place] [facility] 65+ SARS-COV-2 COVID-19 2021-04-08 Completed [facility] of PFIZER VACCINE 00:00:00 [facility] Influenza Virus 2021-04-08 Completed [facility] Vaccine,quad 00:00:00 [place] [facility] 65+ SARS-COV-2 COVID-19 2021-04-08 Completed [facility] of PFIZER VACCINE 00:00:00 [facility] Influenza Virus 2021-04-08 Completed [facility] Vaccine,quad 00:00:00 [place] [facility] 65+ SARS-COV-2 COVID-19 2021-04-08 Completed [facility] of PFIZER VACCINE 00:00:00 [facility] Influenza Virus 2021-04-08 Completed [facility] Vaccine,quad 00:00:00 [place] [facility] 65+ SARS-COV-2 COVID-19 2021-04-08 Completed [facility]ive rs[facility] of PFIZER VACCINE 00:00:00 [facility] Influenza Virus 2021-04-08 Completed [facility] Vaccine,quad 00:00:00 [facility] 65+ SARS-COV-2 COVID-19 2021-04-08 Completed [facility]ive rs[facility] of PFIZER VACCINE 00:00:00 [facility] Influenza Virus 2021-04-08 Completed [facility] Vaccine,quad 00:00:00 [facility] 65+ SARS-COV-2 COVID-19 2021-04-08 Completed Unive rsity of PFIZER VACCINE 00:00:00 [facility] Influenza Virus 2021-04-08 Completed [facility] Vaccine,quad 00:00:00 [facility]+ SARS-COV-2 COVID-19 2021-04-08 Completed Unive rsity of PFIZER VACCINE 00:00:00 [facility] Influenza Virus 2021-04-08 Completed [facility] Vaccine,quad 00:00:00 [place] [facility] 65+ SARS-COV-2 COVID-19 2021-04-08 Completed [facility] of PFIZER VACCINE 00:00:00 [facility] Influenza Virus 2021-04-08 Completed [facility] Vaccine,quad 00:00:00 [place] [facility] 65+ SARS-COV-2 COVID-19 2021-04-08 Completed [facility] rs[facility] of PFIZER VACCINE 00:00:00 [facility] Influenza Virus 2021-04-08 Completed [facility] Vaccine,quad 00:00:00 [place] [facility] 65+ SARS-COV-2 COVID-19 2021-04-08 Completed [facility] of PFIZER VACCINE 00:00:00 [facility] Influenza Virus 2021-04-08 Completed [facility] Vaccine,quad 00:00:00 [place] [facility] 65+ SARS-COV-2 COVID-19 2021-04-08 Completed [facility] rs[facility] of PFIZER VACCINE 00:00:00 [facility] Influenza Virus 2021-04-08 Completed [facility] Vaccine,quad 00:00:00 [place] [facility] 65+ SARS-COV-2 COVID-19 2021-04-08 Completed [facility] of PFIZER VACCINE 00:00:00 [facility] Influenza Virus 2021-04-08 Completed [facility] Vaccine,quad 00:00:00 [place] [facility] 65+ SARS-COV-2 COVID-19 2021-04-08 Completed [facility] of PFIZER VACCINE 00:00:00 [facility] Influenza Virus 2021-04-08 Completed [facility] Vaccine,quad 00:00:00 [place] [facility] 65+ SARS-COV-2 COVID-19 2021-04-08 Completed [facility] of PFIZER VACCINE 00:00:00 [facility] Influenza Virus 2021-04-08 Completed [facility] Vaccine,quad 00:00:00 [place] [facility] 65+ SARS-COV-2 COVID-19 2021-04-08 Completed [facility] of PFIZER VACCINE 00:00:00 [facility] Influenza Virus 2021-04-08 Completed [facility] Vaccine,quad 00:00:00 [place] [facility] 65+ SARS-COV-2 COVID-19 2021-04-08 Completed [facility] of PFIZER VACCINE 00:00:00 [facility] Influenza Virus 2021-04-08 Completed [facility] Vaccine,quad 00:00:00 [place] [facility] 65+ SARS-COV-2 COVID-19 2021-04-08 Completed [facility] of PFIZER VACCINE 00:00:00 [facility] Influenza Virus 2021-04-08 Completed [facility] Vaccine,quad 00:00:00 [place] [facility] 65+ SARS-COV-2 COVID-19 2021-04-08 Completed [facility] of PFIZER VACCINE 00:00:00 [facility] Influenza Virus 2021-04-08 Completed [facility] Vaccine,quad 00:00:00 [place] [facility] 65+ SARS-COV-2 COVID-19 2021-04-08 Completed [facility] of PFIZER VACCINE 00:00:00 [facility] SARS-COV-2 COVID-19 2020-08-01 Completed [facility] of PFIZER VACCINE 00:00:00 [facility] SARS-COV-2 COVID-19 2020-08-01 Completed [facility] of PFIZER VACCINE 00:00:00 [facility] SARS-COV-2 COVID-19 2020-08-01 Completed [facility] of PFIZER VACCINE 00:00:00 [facility] SARS-COV-2 COVID-19 2020-08-01 Completed [facility] rs[facility] of PFIZER VACCINE 00:00:00 [facility] SARS-COV-2 COVID-19 2020-08-01 Completed [facility] of PFIZER VACCINE 00:00:00 [facility] SARS-COV-2 COVID-19 2020-08-01 Completed [facility] of PFIZER VACCINE 00:00:00 [facility] SARS-COV-2 COVID-19 2020-08-01 Completed [facility] of PFIZER VACCINE 00:00:00 [facility] SARS-COV-2 COVID-19 2020-08-01 Completed [facility] of PFIZER VACCINE 00:00:00 [facility] SARS-COV-2 COVID-19 2020-08-01 Completed [facility] of PFIZER VACCINE 00:00:00 [facility] SARS-COV-2 COVID-19 2020-08-01 Completed [facility] PFIZER VACCINE 00:00:00 [place] [facility] SARS-COV-2 COVID-19 2020-08-01 Completed [facility] of PFIZER VACCINE 00:00:00 [facility] SARS-COV-2 COVID-19 2020-08-01 Completed [facility] rs[facility] of PFIZER VACCINE 00:00:00 [facility] SARS-COV-2 COVID-19 2020-08-01 Completed [facility] rs[facility] of PFIZER VACCINE 00:00:00 [facility] SARS-COV-2 COVID-19 2020-08-01 Completed [facility] of PFIZER VACCINE 00:00:00 [facility] SARS-COV-2 COVID-19 2020-08-01 Completed [facility] of PFIZER VACCINE 00:00:00 [facility] SARS-COV-2 COVID-19 2020-08-01 Completed [facility] of PFIZER VACCINE 00:00:00 [facility] SARS-COV-2 COVID-19 2020-08-01 Completed [facility]ive rs[facility] of PFIZER VACCINE 00:00:00 [facility] SARS-COV-2 COVID-19 2020-08-01 Completed [facility] of PFIZER VACCINE 00:00:00 [facility] SARS-COV-2 COVID-19 2020-08-01 Completed [facility] of PFIZER VACCINE 00:00:00 [facility] SARS-COV-2 COVID-19 2020-08-01 Completed [facility] of PFIZER VACCINE 00:00:00 [facility] SARS-COV-2 COVID-19 2020-08-01 Completed [facility] of PFIZER VACCINE 00:00:00 [facility] SARS-COV-2 COVID-19 2020-08-01 Completed [facility] of PFIZER VACCINE 00:00:00 [facility] SARS-COV-2 COVID-19 2020-08-01 Completed [facility] of PFIZER VACCINE 00:00:00 [facility] SARS-COV-2 COVID-19 2020-08-01 Completed [facility] of PFIZER VACCINE 00:00:00 [facility] SARS-COV-2 COVID-19 2020-08-01 Completed [facility]ive rsity of PFIZER VACCINE 00:00:00 [facility] SARS-COV-2 COVID-19 2020-08-01 Completed [facility]ive rs[facility] of PFIZER VACCINE 00:00:00 [facility] SARS-COV-2 COVID-19 2020-08-01 Completed [facility] of PFIZER VACCINE 00:00:00 [facility] SARS-COV-2 COVID-19 2020-08-01 Completed [facility] of PFIZER VACCINE 00:00:00 [facility] SARS-COV-2 COVID-19 2020-08-01 Completed [facility] of PFIZER VACCINE 00:00:00 [facility] SARS-COV-2 COVID-19 2020-08-01 Completed [facility]ive rs[facility] of PFIZER VACCINE 00:00:00 [facility] SARS-COV-2 COVID-19 2020-08-01 Completed [facility]ive rsity of PFIZER VACCINE 00:00:00 [facility] SARS-COV-2 COVID-19 2020-08-01 Completed [facility]ive rs[facility] of PFIZER VACCINE 00:00:00 [facility] SARS-COV-2 COVID-19 2020-08-01 Completed [facility]ive rsity of PFIZER VACCINE 00:00:00 [facility] SARS-COV-2 COVID-19 2020-08-01 Completed [facility]ive rsity of PFIZER VACCINE 00:00:00 [facility] SARS-COV-2 COVID-19 2020-08-01 Completed [facility]ive rsity of PFIZER VACCINE 00:00:00 [facility] SARS-COV-2 COVID-19 2020-08-01 Completed [facility]ive rsity of PFIZER VACCINE 00:00:00 [facility] SARS-COV-2 COVID-19 2020-08-01 Completed [facility]ive rsity of PFIZER VACCINE 00:00:00 [facility] SARS-COV-2 COVID-19 2020-08-01 Completed [facility]ive rsity of PFIZER VACCINE 00:00:00 [facility] SARS-COV-2 COVID-19 2020-08-01 Completed [facility]ive rsity of PFIZER VACCINE 00:00:00 [facility] SARS-COV-2 COVID-19 2020-08-01 Completed [facility]ive rsity of PFIZER VACCINE 00:00:00 [facility] SARS-COV-2 COVID-19 2020-08-01 Completed [facility]ive rsity of PFIZER VACCINE 00:00:00 [facility] SARS-COV-2 COVID-19 2020-08-01 Completed [facility]ive rsity of PFIZER VACCINE 00:00:00 [facility] SARS-COV-2 COVID-19 2020-08-01 Completed [facility]ive rsity of PFIZER VACCINE 00:00:00 [facility] SARS-COV-2 COVID-19 2020-08-01 Completed [facility]ive rsity of PFIZER VACCINE 00:00:00 [facility] SARS-COV-2 COVID-19 2020-08-01 Completed [facility]ive rsity of PFIZER VACCINE 00:00:00 [facility] SARS-COV-2 COVID-19 2020-08-01 Completed [facility]ive rsity of PFIZER VACCINE 00:00:00 [facility] SARS-COV-2 COVID-19 2020-08-01 Completed [facility]ive rsity of PFIZER VACCINE 00:00:00 [facility] SARS-COV-2 COVID-19 2020-08-01 Completed [facility]ive rsity of PFIZER VACCINE 00:00:00 [facility] SARS-COV-2 COVID-19 2020-08-01 Completed [facility]ive rsity of PFIZER VACCINE 00:00:00 [facility] SARS-COV-2 COVID-19 2020-08-01 Completed [facility]ive rsity of PFIZER VACCINE 00:00:00 [facility] SARS-COV-2 COVID-19 2020-08-01 Completed [facility]ive rsity of PFIZER VACCINE 00:00:00 [facility] SARS-COV-2 COVID-19 2020-08-01 Completed [facility]ive rsity of PFIZER VACCINE 00:00:00 [facility] SARS-COV-2 COVID-19 2020-08-01 Completed [facility]ive rsity of PFIZER VACCINE 00:00:00 [facility] SARS-COV-2 COVID-19 2020-08-01 Completed [facility]ive [facility]ity of PFIZER VACCINE 00:00:00 [facility] SARS-COV-2 COVID-19 2020-08-01 Completed [facility]ity of PFIZER VACCINE 00:00:00 [facility] SARS-COV-2 COVID-19 2020-08-01 Completed [facility]ive rsity of PFIZER VACCINE 00:00:00 [facility] SARS-COV-2 COVID-19 2020-08-01 Completed [facility]ive rsity of PFIZER VACCINE 00:00:00 [facility] SARS-COV-2 COVID-19 2020-07-11 Completed [facility]ive rsity of PFIZER VACCINE 00:00:00 [facility] SARS-COV-2 COVID-19 2020-07-11 Completed [facility]ive [facility]ity of PFIZER VACCINE 00:00:00 [facility] SARS-COV-2 COVID-19 2020-07-11 Completed [facility]ive rsity of PFIZER VACCINE 00:00:00 [facility] SARS-COV-2 COVID-19 2020-07-11 Completed [facility]ive rsity of PFIZER VACCINE 00:00:00 [facility] SARS-COV-2 COVID-19 2020-07-11 Completed [facility]ive rsity of PFIZER VACCINE 00:00:00 [facility] SARS-COV-2 COVID-19 2020-07-11 Completed Unive rsity of PFIZER VACCINE 00:00:00 [facility] SARS-COV-2 COVID-19 2020-07-11 Completed Unive rsity of PFIZER VACCINE 00:00:00 [facility] SARS-COV-2 COVID-19 2020-07-11 Completed Unive rsity of PFIZER VACCINE 00:00:00 [facility] SARS-COV-2 COVID-19 2020-07-11 Completed Unive rsity of PFIZER VACCINE 00:00:00 [facility] SARS-COV-2 COVID-19 2020-07-11 Completed Unive rsity of PFIZER VACCINE 00:00:00 [facility] SARS-COV-2 COVID-19 2020-07-11 Completed [facility]ive rsity of PFIZER VACCINE 00:00:00 [facility] SARS-COV-2 COVID-19 2020-07-11 Completed Unive rsity of PFIZER VACCINE 00:00:00 [facility] SARS-COV-2 COVID-19 2020-07-11 Completed Unive rsity of PFIZER VACCINE 00:00:00 [facility] SARS-COV-2 COVID-19 2020-07-11 Completed Unive rsity of PFIZER VACCINE 00:00:00 [facility] SARS-COV-2 COVID-19 2020-07-11 Completed Unive rsity of PFIZER VACCINE 00:00:00 [facility] SARS-COV-2 COVID-19 2020-07-11 Completed Unive rsity of PFIZER VACCINE 00:00:00 [facility] SARS-COV-2 COVID-19 2020-07-11 Completed Unive rsity of PFIZER VACCINE 00:00:00 [facility] SARS-COV-2 COVID-19 2020-07-11 Completed Unive rsity of PFIZER VACCINE 00:00:00 [facility] SARS-COV-2 COVID-19 2020-07-11 Completed Unive rsity of PFIZER VACCINE 00:00:00 [facility] SARS-COV-2 COVID-19 2020-07-11 Completed Unive rsity of PFIZER VACCINE 00:00:00 [facility] SARS-COV-2 COVID-19 2020-07-11 Completed Unive rsity of PFIZER VACCINE 00:00:00 [facility] SARS-COV-2 COVID-19 2020-07-11 Completed Unive rsity of PFIZER VACCINE 00:00:00 [facility] SARS-COV-2 COVID-19 2020-07-11 Completed [facility]ive rsity of PFIZER VACCINE 00:00:00 [facility] SARS-COV-2 COVID-19 2020-07-11 Completed [facility]ive rsity of PFIZER VACCINE 00:00:00 [facility] SARS-COV-2 COVID-19 2020-07-11 Completed Unive rsity of PFIZER VACCINE 00:00:00 [facility] SARS-COV-2 COVID-19 2020-07-11 Completed [facility]ive rsity of PFIZER VACCINE 00:00:00 [facility] SARS-COV-2 COVID-19 2020-07-11 Completed [facility]ive rsity of PFIZER VACCINE 00:00:00 [facility] SARS-COV-2 COVID-19 2020-07-11 Completed [facility]ive rsity of PFIZER VACCINE 00:00:00 [facility] SARS-COV-2 COVID-19 2020-07-11 Completed [facility]ive rsity of PFIZER VACCINE 00:00:00 [facility] SARS-COV-2 COVID-19 2020-07-11 Completed [facility]ive rsity of PFIZER VACCINE 00:00:00 [facility] SARS-COV-2 COVID-19 2020-07-11 Completed Unive rsity of PFIZER VACCINE 00:00:00 [facility] SARS-COV-2 COVID-19 2020-07-11 Completed [facility]ive rsity of PFIZER VACCINE 00:00:00 [facility] SARS-COV-2 COVID-19 2020-07-11 Completed [facility]ive rsity of PFIZER VACCINE 00:00:00 [facility] SARS-COV-2 COVID-19 2020-07-11 Completed Unive rsity of PFIZER VACCINE 00:00:00 [facility] SARS-COV-2 COVID-19 2020-07-11 Completed [facility]ive rsity of PFIZER VACCINE 00:00:00 [facility] SARS-COV-2 COVID-19 2020-07-11 Completed [facility]ive rsity of PFIZER VACCINE 00:00:00 [facility] SARS-COV-2 COVID-19 2020-07-11 Completed [facility]ive rsity of PFIZER VACCINE 00:00:00 [facility] SARS-COV-2 COVID-19 2020-07-11 Completed [facility]ive rsity of PFIZER VACCINE 00:00:00 [facility] SARS-COV-2 COVID-19 2020-07-11 Completed [facility]ive rsity of PFIZER VACCINE 00:00:00 [facility] SARS-COV-2 COVID-19 2020-07-11 Completed Unive rsity of PFIZER VACCINE 00:00:00 [facility] SARS-COV-2 COVID-19 2020-07-11 Completed [facility]ive rsity of PFIZER VACCINE 00:00:00 [facility] SARS-COV-2 COVID-19 2020-07-11 Completed [facility]ive rsity of PFIZER VACCINE 00:00:00 [facility] SARS-COV-2 COVID-19 2020-07-11 Completed [facility]ive rsity of PFIZER VACCINE 00:00:00 [facility] SARS-COV-2 COVID-19 2020-07-11 Completed [facility]ive rsity of PFIZER VACCINE 00:00:00 [facility] SARS-COV-2 COVID-19 2020-07-11 Completed Unive rsity of PFIZER VACCINE 00:00:00 [facility] SARS-COV-2 COVID-19 2020-07-11 Completed [facility]ive rsity of PFIZER VACCINE 00:00:00 [facility] SARS-COV-2 COVID-19 2020-07-11 Completed Unive rsity of PFIZER VACCINE 00:00:00 [facility] SARS-COV-2 COVID-19 2020-07-11 Completed [facility]ive rsity of PFIZER VACCINE 00:00:00 [facility] SARS-COV-2 COVID-19 2020-07-11 Completed Unive rsity of PFIZER VACCINE 00:00:00 [facility] SARS-COV-2 COVID-19 2020-07-11 Completed Unive rsity of PFIZER VACCINE 00:00:00 [facility] SARS-COV-2 COVID-19 2020-07-11 Completed [facility]ive rsity of PFIZER VACCINE 00:00:00 [facility] SARS-COV-2 COVID-19 2020-07-11 Completed [facility]ive rsity of PFIZER VACCINE 00:00:00 [facility] SARS-COV-2 COVID-19 2020-07-11 Completed [facility]ive rsity of PFIZER VACCINE 00:00:00 [facility] SARS-COV-2 COVID-19 2020-07-11 Completed [facility]ive rsity of PFIZER VACCINE 00:00:00 [facility] SARS-COV-2 COVID-19 2020-07-11 Completed [facility]ive rsity of PFIZER VACCINE 00:00:00 [facility] SARS-COV-2 COVID-19 2020-07-11 Completed [facility]ive rsity of PFIZER VACCINE 00:00:00 [facility] SARS-COV-2 COVID-19 2020-07-11 Completed [facility]ive rsity of PFIZER VACCINE 00:00:00 [facility] TDAP 2017-05-03 Completed [facility] 00:00:00 [facility] TDAP 2017-05-03 Completed [facility] of 00[facility]00:00 [facility] TDAP 2017-05-03 Completed [facility] of 00:00:00 [facility] TDAP 2017-05-03 Completed [facility] of 00:00:00 [facility] TDAP 2017-05-03 Completed [facility] of 00:00:00 [facility] TDAP 2017-05-03 Completed [facility] of 00[facility]00:00 [facility] TDAP 2017-05-03 Completed [facility] of 00:00:00 [facility] TDAP 2017-05-03 Completed [facility] 00:00:00 [facility] TDAP 2017-05-03 Completed [facility] 00:00:00 [facility] TDAP 2017-05-03 Completed [facility] 00:00:00 [facility] TDAP 2017-05-03 Completed [facility] 00:00:00 [facility] TDAP 2017-05-03 Completed [facility] 00:00:00 [facility] TDAP 2017-05-03 Completed [facility] 00:00:00 [facility] TDAP 2017-05-03 Completed [facility] 00:00:00 [facility] TDAP 2017-05-03 Completed [facility] 00:00:00 [facility] TDAP 2017-05-03 Completed [facility] 00:00:00 [facility] TDAP 2017-05-03 Completed [facility] of 00:00:00 [facility] TDAP 2017-05-03 Completed [facility] of 00:00:00 [facility] TDAP 2017-05-03 Completed [facility] of 00:00:00 [facility] TDAP 2017-05-03 Completed [facility] of 00:00:00 [facility] TDAP 2017-05-03 Completed [facility] of 00:00:00 [facility] TDAP 2017-05-03 Completed [facility] 00:00:00 [facility] TDAP 2017-05-03 Completed [facility] of 00:00:00 [facility] TDAP 2017-05-03 Completed [facility] of 00:00:00 [facility] TDAP 2017-05-03 Completed [facility] of 00:00:00 [facility] TDAP 2017-05-03 Completed [facility] 00:00:00 [facility] TDAP 2017-05-03 Completed [facility] of 00:00:00 [facility] TDAP 2017-05-03 Completed [facility] 00:00:00 [facility] TDAP 2017-05-03 Completed [facility] 00:00:00 [facility] TDAP 2017-05-03 Completed [facility] 00:00:00 [facility] TDAP 2017-05-03 Completed [facility] 00:00:00 [facility] TDAP 2017-05-03 Completed [facility] 00:00:00 [facility] TDAP 2017-05-03 Completed [facility] 00:00:00 [facility] TDAP 2017-05-03 Completed [facility] 00:00:00 [facility] TDAP 2017-05-03 Completed [facility] 00:00:00 [facility] TDAP 2017-05-03 Completed [facility] 00:00:00 [facility] TDAP 2017-05-03 Completed [facility] 00:00:00 [facility] TDAP 2017-05-03 Completed [facility] 00:00:00 [facility] TDAP 2017-05-03 Completed [facility] 00:00:00 [facility] TDAP 2017-05-03 Completed [facility] 00:00:00 [facility] TDAP 2017-05-03 Completed [facility] 00:00:00 [facility] TDAP 2017-05-03 Completed [facility] 00:00:00 [facility] TDAP 2017-05-03 Completed [facility] 00:00:00 [facility] TDAP 2017-05-03 Completed [facility] 00:00:00 [facility] TDAP 2017-05-03 Completed [facility] 00:00:00 [facility] TDAP 2017-05-03 Completed [facility] 00:00:00 [facility] TDAP 2017-05-03 Completed [facility] 00:00:00 [facility] TDAP 2017-05-03 Completed [facility] of 00:00:00 [facility] TDAP 2017-05-03 Completed [facility] 00:00:00 [facility] TDAP 2017-05-03 Completed [facility] 00:00:00 [facility] TDAP 2017-05-03 Completed [facility] 00:00:00 [facility] TDAP 2017-05-03 Completed [facility] 00:00:00 [facility] TDAP 2017-05-03 Completed [facility] 00:00:00 [facility] TDAP 2017-05-03 Completed [facility] of 00:00:00 [facility] TDAP 2017-05-03 Completed [facility] 00:00:00 [facility] TDAP 2017-05-03 Completed [facility] 00:00:00 [facility] TDAP 2017-05-03 Completed [facility] 00:00:00 [facility] Vital Signs Vital Name Observation Time Observation Value Comments Source Systolic blood 2022-09-08 14:35:00 134 mm[Hg] Univer sity of pressure [facility] Diastolic blood 2022-09-08 14:35:00 83 mm[Hg] Unive rsity of pressure [facility] Heart rate 2022-09-08 14:35:00 72 /min [facility] Body height 2022-09-08 14:35:00 152.4 cm [facility] Body weight 2022-09-08 14:35:00 120.929 kg [facility] BMI 2022-09-08 14:35:00 52.07 kg/m2 [facility] Oxygen saturation in 2022-09-08 14:35:00 97 /min [facility] of Arterial blood by [facility] Systolic blood 2022-07-03 16:24:00 118 mm[Hg] Univer sity of pressure [facility] Diastolic blood 2022-07-03 16:24:00 71 mm[Hg] Unive rsity of pressure [facility] Heart rate 2022-07-03 16:23:00 87 /min [facility] Body temperature 2022-07-03 16:23:00 37.06 Kirsten Univ [facility] Body height 2022-07-03 16:23:00 152.4 cm [facility] Body weight 2022-07-03 16:23:00 119.75 kg [facility] BMI 2022-07-03 16:23:00 51.56 kg/m2 [facility] Systolic blood 2022-06-08 16:27:00 143 mm[Hg] [facility] Diastolic blood 2022-06-08 16:27:00 73 mm[Hg] Unive rsity of pressure [facility] Heart rate 2022-06-08 16:26:00 73 /min [facility] Body height 2022-06-08 16:26:00 152.4 cm [facility] Body weight 2022-06-08 16:26:00 118.842 kg [facility] BMI 2022-06-08 16:26:00 51.17 kg/m2 [facility] Oxygen saturation in 2022-06-08 16:26:00 96 /min [facility] of Arterial blood by [facility] Systolic blood 2022-05-27 15:31:00 147 mm[Hg] Univer sity of pressure [facility] Diastolic blood 2022-05-27 15:31:00 86 mm[Hg] Unive rsity of pressure [facility] Heart rate 2022-05-27 15:31:00 75 /min [facility] Body height 2022-05-27 15:31:00 152.4 cm [facility] Body weight 2022-05-27 15:31:00 114.443 kg [facility] BMI 2022-05-27 15:31:00 49.27 kg/m2 [facility] Oxygen saturation in 2022-05-27 15:31:00 95 /min [facility] Arterial blood by [facility] Pulse oximetry Branch Body temperature 2022-05-27 15:28:00 36.28 Kirsten [facility] Systolic blood 2022-04-06 15:02:00 135 mm[Hg] [facility] Diastolic blood 2022-04-06 15:02:00 79 mm[Hg] [facility] Heart rate 2022-04-06 14:54:00 80 /min [facility] Body temperature 2022-04-06 14:54:00 36.67 Kirsten [facility] Body height 2022-04-06 14:54:00 149.9 cm [facility] Body weight 2022-04-06 14:54:00 119.296 kg [facility] BMI 2022-04-06 14:54:00 53.12 kg/m2 [facility] Oxygen saturation in 2022-04-06 14:54:00 97 /min [facility] Arterial blood by [facility] Pulse oximetry Branch Systolic blood 2022-01-26 15:50:00 139 mm[Hg] [facility] Diastolic blood 2022-01-26 15:50:00 80 mm[Hg] [facility] Heart rate 2022-01-26 15:50:00 70 /min [facility] Body temperature 2022-01-26 15:50:00 36.56 Kirsten [facility] Body height 2022-01-26 15:50:00 144.8 cm [facility] Body weight 2022-01-26 15:50:00 117.935 kg Universi ty of [facility] BMI 2022-01-26 15:50:00 56.26 kg/m2 [facility] Oxygen saturation in 2022-01-26 15:50:00 94 /min [facility] Arterial blood by [facility] Pulse oximetry Branch Systolic blood 2022-01-19 13:58:00 130 mm[Hg] Univmerlin sity of pressure [facility] Diastolic blood 2022-01-19 13:58:00 70 mm[Hg] Unive rsngoc [facility] Heart rate 2022-01-19 13:58:00 80 /min [facility] Body temperature 2022-01-19 13:58:00 36.56 Kirsten [facility] 2022-01-19 13:58:00 18 /min [facility] Body height 2022-01-19 13:58:00 144.8 cm [facility] Body weight 2022-01-19 13:58:00 117.935 kg [facility] BMI 2022-01-19 13:58:00 56.26 kg/m2 [facility] Procedures Procedure Date / Time Performing Clinician Source Performed EXTERNAL PROVIDER RECORDS 2022-10-27 05:01:00 Doctor Karolyn, [facility] EXTERNAL PROVIDER RECORDS 2022-09-25 05:01:00 Doctor Karolyn, [facility] PNEUMOCOCCAL 20 CONJUGATE 2022-09-08 14:59:48 Cinthya Duarte [facility] (PREVNAR 20) VACCINE Medical Bra [facility] US ABDOMEN LIMITED 2022-08-28 15:08:01 Dominic Landeros [facility] C Medical Branch CONSENT/REFUSAL FOR 2022-08-28 13:59:48 Doctor [facility] DIAGNOSIS AND TREATMENT [facility] ASSIGNMENT OF BENEFITS 2022-08-28 13:59:29 Doctor Roverto Parr [facility] EXTERNAL PROVIDER - ADC 2022-08-11 05:01:00 [facility] INSURANCE CORRESPONDENCE 2022-08-04 05:01:00 Doctor Karolyn, [facility] [place] PATIENT FINANCIAL 2022-07-03 15:51:37 Doctor Unassigned, [facility] POLICY [facility] POCT URINALYSIS W/O 2022-07-03 00:00:00 Alejandra Nice [facility] SPECIFIC GRAVITY [facility] COMP. METABOLIC PANEL 2022-05-25 15:13:00 [id number] GLYCOSYLATED HEMOGLOBIN 2022-05-25 15:13:00 [facility] (A1C) [facility] Clinic MEDICATION CORRESPONDENCE 2022-05-13 06:01:00 Doctor Unassigned, [facility] FLU 2022-01-26 16:14:39 [facility] [place] VACC(),65+YR,0.5 Medica l Branch ML,IM,ADJUVANTED,QUAD(FLU AD) SARS-COV-2 COVID-19 2022-01-26 16:14:39 [facility] CLARISSA-SUCROSE VACCINE 12 Medical Center Clinic YRS+, BIVALENT 0.3ML, IM, (PFIZER MEZA TOP BOOSTER) Encounters Start End Encounter Admission Attending Care Care Encounter Source Date/Time Date/Time Type Type Clinicians Facility Department ID 2021-03-05 Outpatient R [facility] [id number] Univers 16:30:28 [facility] 2022-11-25 2022-11-25 Outpatient R JANUSZ [facility] [id number] Univers 10:00:00 10:00:00 [facility] 2022-11-13 2022-11-13 [facility] 1.2.840.114 [id number] Univers 00:00:00 00:00:00 Critical access hospital 350.1.13.10 ity [facility] 4.2.7.2.686 Stephan as SAMUEL?BLEA [phone] Ks erendira BENITO [address] [place] [address] MEDICAL OFFICE BUILDING 2022-11-12 2022-11-12 Refill SumanRUST 1.2.840.114 [id number] Univers 00:00:00 00:00:00 Critical access hospital 350.1.13.10 ity [facility] 4.2.7.2.686 Stephan as SAMUEL?BLEA [phone] [address] OFFICE [facility] 2022-11-10 2022-11-10 Refill Janusz [facility] 1.2.840.114 [id number] Univers 00:00:00 00:00:00 Desiree [facility] 350.1.13.10 ity of [facility] 4.2.7.2.686 [place] [phone] [facility] 059 [facility] 2022-10-27 2022-10-27 Orders Doctor ROSANNA 1.2.840.114 [id number] Univers 00:00:00 00:00:00 Only Unassigned, ROSA MARIA 350.1.13.10 ity of [place] [facility] 4.2.7.2.686 Stephan as [id number] [address] 2022-10-01 2022-10-01 Telephone FabienRUST 1.2.916.286 [id number] Univers 00:00:00 00:00:00 Jing HEALTH 350.1.13.10 it y of [place] 4.2.7.2.686 Stephan as SAMUEL?BLEA [id number] [address] OFFICE [facility] 2022-09-25 2022-09-25 Orders Doctor ROSANNA 1.2.840.114 [id number] Univers 00:00:00 00:00:00 Only Unassigned, ROSA MARIA 350.1.13.10 ity of [place] [facility] 4.2.7.2.686 Stephan as [id number] [address] 2022-09-15 2022-09-15 Telephone [facility] 1.2.833.166 [id number] Univers 00:00:00 00:00:00 Cinthya HEALTH 350.1.13.10 ity of [place] 4.2.7.2.686 Stephan as SAMUEL?BLEA [id number] [address] OFFICE [facility] 2022-09-11 2022-09-11 Telephone [facility] 1.2.206.714 [id number] Univers 00:00:00 00:00:00 Cinthya HEALTH 350.1.13.10 ity [facility] 4.2.7.2.686 Stephan as SAMUEL?BLEA [id number] [address] MEDICAL OFFICE [facility] 2022-09-08 2022-09-08 Outpatient R CINTHYA DUARTE [facility] [id number] Univers 10:00:00 10:15:02 CINTHYA DUARTE ity [facility] 2022-09-08 2022-09-08 Office LinhevaRUST 1.2.840.114 [id number] Univers 10:00:00 10:15:02 Visit Critical access hospital 350.1.13.10 ity of [place] 4.2.7.2.686 Stephan as SAMUEL?BLEA [phone] [address] MEDICAL OFFICE [facility] 2022-08-28 2022-08-28 [facility] 1.2.840.114 [id number] Univers 09:02:13 23:59:00 Encounter Dominic cartwright 350.1.13.10 ity of [place].2.7.2.[place] [id number] [facility] [address] [place] [address] 2022-08-28 2022-08-28 Outpatient R [facility] 519 [id number] Univers 09:02:12 23:59:00 DOMINIC Cartwright o f [facility] 2022-08-27 2022-08-27 Refill JanuszRUST 1.2.840.114 [id number] Univers 00:00:00 00:00:00 Desiree KAN 350.1.13.10 ity [address] [facility] 4.2.7.2.686 [place] [id number] [place] dicva NAL [address] [place] [address] 2022-08-11 2022-08-11 Damari Boudreaux [facility] 1.2.114.131 [id number] Univers 00:00:00 00:00:00 Desiree KAN 350.1.13.10 ity of [facility] 4.2.7.2.686 [place] [id number] [address] 2022-08-11 2022-08-11 Orders Doctor ROSANNA 1.2.840.114 [id number] Univers 00:00:00 00:00:00 Only Unassigned, ROSA MARIA 350.1.13.10 ity of [place] [facility] 4.2.7.2.686 Stephan as [id number] [address] 2022-08-04 2022-08-04 Orders Doctor ROSANNA 1.2.840.114 [id number] Univers 00:00:00 00:00:00 Only Unassigned, ROSA MARIA 350.1.13.10 ity of [place] [facility] 4.2.7.2.686 Stephan as [id number] [address] 2022-07-06 2022-07-06 [facility] JanuszRUST 1.2.840.114 [id number] Univers 00:00:00 00:00:00 Desiree KAN 350.1.13.10 ity of [place] 4.2.7.2.[place] [id number] [address] 2022-07-06 2022-07-06 Refill [facility] 1.2.840.114 [id number] Univers 00:00:00 00:00:00 Alejandra KAN 350.1.13.10 i ty of [place] 4.2.7.2.[place] [id number] [address] 2022-07-03 2022-07-03 Outpatient R [facility] [id number] Univers 10:30:00 10:53:07 ALEJANDRA grossman of [facility] 2022-07-03 2022-07-03 Office [facility] 1.2.840.114 [id number] Univers 10:30:00 10:53:07 Visit Alejandra KAN 350.1.13.10 i ty of [place] 4.2.7.2.686 [place] [phone] Ks dic[address] 2022-07-03 2022-07-03 Outpatient R [facility] [id number] Univers 10:30:00 10:30:00 [facility] 2022-07-03 2022-07-03 [facility] [id number] Univers 10:30:00 10:30:00 [facility] 2022-07-03 2022-07-03 Outpatient [facility] [id number] Univers 10:30:00 10:30:00 [facility] 2022-07-03 2022-07-03 Outpatient [facility] [id number] Univers 10:30:00 10:30:00 [facility] 2022-07-03 2022-07-03 Outpatient [facility] [id number] Univers 10:30:00 10:30:00 [facility] 2022-07-03 2022-07-03 Orders Doctor ROSANNA 1.2.840.114 [id number] Univers 00:00:00 00:00:00 Only Unassigned, ROSA MARIA 350.1.13.10 ity of [facility] 4.2.7.2.686 Stephan as [id number] [address] 2022-07-03 2022-07-03 [facility] JanuszRUST 1.2.840.114 [id number] Univers 00:00:00 00:00:00 Desiree [facility] 350.1.13.10 ity of [place].2.7.2.686 [place] [id number] [place] erendira SCHAEFFER 059 [facility] 2022-06-26 2022-06-26 Telephone [facility] 1.2.922.343 [id number] Univers 00:00:00 00:00:00 Critical access hospital 350.1.13.10 ity of [place] 4.2.7.2.686 Stephan as SAMUEL?BLEA [id number] [place] erendira KNEY [address] MEDICAL OFFICE [facility] 2022-06-24 2022-06-24 Refill SumanRUST 1.2.840.114 [id number] Univers 00:00:00 00:00:00 Cinthya HEALTH 350.1.13.10 ity of [place] 4.2.7.2.686 Stephan as SAMUEL?BLEA [id number] [address] OFFICE [facility] 2022-06-19 2022-06-19 Telephone SumanRUST 1.2.771.665 [id number] Univers 00:00:00 00:00:00 Critical access hospital 350.1.13.10 ity of [place] 4.2.7.2.686 Stephan as SAMUEL?BLEA [id number] [address] OFFICE [facility] 2022-06-08 2022-06-08 Outpatient [facility] [id number] Univers 10:20:00 11:01:58 [facility] 2022-06-08 2022-06-08 Office [facility] 1.2.840.114 [id number] Univers 10:20:00 11:01:58 Visit Critical access hospital 350.1.13.10 ity of [place] 4.2.7.2.686 Stephan as SAMUEL?BLEA [id number] [address] OFFICE [facility] 2022-05-27 2022-05-27 Outpatient R JANUSZ [facility] [id number] Univers 09:30:00 10:01:00 SENDIL [facility] 2022-05-27 2022-05-27 Office BoudreauxRUST 1.2.840.114 [id number] Univers 09:30:00 10:01:00 Visit Desiree Barney [place] 350.1.13.10 ity [facility] 4.2.7.2.686 [place] [id number] Ks dicmarcelino [facility] 059 [facility] 2022-05-25 2022-05-25 Outpatient [facility] [id number] Univers 08:30:00 10:04:00 [facility] 2022-05-25 2022-05-25 [facility], Ang - Chris [facility] 1.2.840.1 14 [id number] Univers 08:30:00 10:04:00 [facility] 350.1.13.10 ity of [place] 4.2.7.2.686 Stephan as SAMUEL?BLEA [id number] [place]s erendira BENITO [address] MEDICAL OFFICE BUILDING 2022-05-25 2022-05-25 Outpatient R [facility] [id number] Univers 09:00:00 09:00:00 ity [facility] 2022-05-13 2022-05-13 Orders Doctor ROSANNA 1.2.840.114 [id number] Univers 00:00:00 00:00:00 Only Unassigned, ROSA MARIA 350.1.13.10 ity [facility] 4.2.7.2.686 Stephan as [phone] [facility] [address] [place] 2022-04-06 2022-04-06 Outpatient [facility] [id number] Univers 09:20:00 09:45:49 [facility] 2022-04-06 2022-04-06 Office [facility] 1.2.840.114 [id number] Univers 09:20:00 09:45:49 Visit Critical access hospital 350.1.13.10 [facility] 4.2.7.2.686 Stephan as SAMUEL?BLEA [id number] Ks erendira [facility] [address] MEDICAL OFFICE BUILDING 2022-04-06 2022-04-06 Outpatient [facility] [id number] Univers 09:30:00 09:30:00 [facility] 2022-03-05 2022-03-05 Outpatient [facility] [id number] Univers 08:13:09 23:59:00 [facility] 2022-03-05 2022-03-05 [facility] 1.2.840.114 [id number] Univers 08:13:09 23:59:00 Encounter Cinthya [facility] 350.1.13.10 ity [facility] 4.2.7.2.686 [place] [id number] [facility] [address] 2022-02-24 2022-02-24 Aron BoudreauxRUST 1.2.840.114 [id number] Univers 00:00:00 00:00:00 Desiree KAN 350.1.13.10 ity [facility] 4.2.7.2.686 [place] [id number] [place]s erendira SCHAEFFER 059 [facility] 2022-02-24 2022-02-24 Telephone [facility] 1.2.491.951 [id number] Univers 00:00:00 00:00:00 Critical access hospital 350.1.13.10 ity of [place] 4.2.7.2.686 Stephan as SAMUEL?BLEA [phone] [place] erendira BENITO 044 [facility] OFFICE [facility] 2022-01-26 2022-01-26 [facility], Ang - Db [facility] 1.2.840.1 14 [id number] Univers 11:30:00 11:45:00 [facility] 350.1.13.10 ity of [place] 4.2.7.2.686 Stephan as SAMUEL?BLEA [id number] [place] erendira BENITO 353 [facility] 2022-01-26 2022-01-26 Outpatient R [facility] [id number] Univers 10:40:00 11:24:50 [facility] 2022-01-26 2022-01-26 Office [facility] 1.2.840.114 [id number] Univers 10:40:00 11:24:50 Visit Critical access hospital 350.1.13.10 ity of [place] 4.2.7.2.686 Stephan as SAMUEL?BLEA [id number] [address] 2022-01-26 2022-01-26 Outpatient R [facility] [id number] Univers 10:40:00 10:40:00 [facility] 2022-01-19 2022-01-19 Outpatient [facility] [id number] Univers 09:00:00 09:50:21 [facility] 2022-01-19 2022-01-19 Office TexRUST 1.2.840.114 [id number] Univers 09:00:00 09:50:21 [facility] 350.1.13.10 i ty of [facility] 4.2.7.2.686 [place] [id number] Ks dical NAL 098 [facility] 2022-01-14 2022-01-14 Refill NaylaRUST 1.2.840.114 [id number] Univers 00:00:00 00:00:00 Wondiful A HEALTH 350.1.13.10 ity of [place] 4.2.7.2.686 Stephan as SAMUEL?BLEA [id number] [place] erendira BENITO 044 [facility] OFFICE [facility] 2022-01-12 2022-01-12 Telephone JanuszRUST 1.2.690.988 [id number] [facility] 00:00:00 00:00:00 Sendmindy K.HIsidro [place] 350.1.13.10 ity of [place] 4.2.7.2.686 [place] [id number] Ks dicva NAL 059 [facility] 2022-01-08 2022-01-08 Refill JanuszRUST 1.2.840.114 [id number] Univers 00:00:00 00:00:00 Sendil [facility] [place] 350.1.13.10 ity of [place] 4.2.7.2.686 [place] [id number] [facility] NAL 059 [facility] 2022-01-06 2022-01-06 [facility], [facility] 1.2.840.1 14 [id number] Univers 08:45:00 09:00:00 Visit Jing Conn HEALTH 350.1.13.10 ity [facility] 4.2.7.2.686 Stephan as SAMUEL?BLEA [id number] [place]s erendira BENITO 353 [facility] OFFICE [facility] 2022-01-06 2022-01-06 Outpatient R FABIEN [facility] [id number] Univers 08:45:00 08:42:53 JING changy [facility] 2021-12-22 2021-12-22 Outpatient R [facility] [id number] Univers 09:00:00 09:39:28 ALEJANDRA grossman [facility] 2021-12-22 2021-12-22 Office Tex[place] 1.2.840.114 [id number] Univers 09:00:00 09:39:28 Visit Alejandra KAN 350.1.13.10 i ty of [facility] 4.2.7.2.686 [place] [id number] Ks dorothy[address] 2021-12-22 2021-12-22 Outpatient R TEX [facility] [id number] Univers 09:00:00 09:39:28 ALEJANDRA ngoc [facility] 2021-12-16 2021-12-16 Outpatient R JANUSZ [facility] [id number] Univers 08:00:00 08:06:31 SENDIL iteva [facility] 2021-12-16 2021-12-16 [facility], [facility] 1.2.840.1 14 [id number] [facility] 08:00:00 08:06:31 Visit Desiree Boudreaux .H. HEALTH 350.1.13.1 0 ity of [place] 4.2.7.2.686 Stephan as SAMUEL?BLEA [id number] [place] erendira YODER 353 [facility] OFFICE [facility] 2021-12-16 2021-12-16 Telephone [facility] 1.2.840.114 [id number] Univers 00:00:00 00:00:00 Alejandra KAN 350.1.13.10 i ty of [facility] 4.2.7.2.686 [place] [id number] [address] 2021-12-15 2021-12-15 Office [facility] 1.2.840.114 [id number] Univers 09:30:00 09:48:51 Visit [facility] [employer] 350.1.13.10 it y of [place] 4.2.7.2.686 Stephan as SAMUEL?BLEA [id number] [place] erendira YODER 044 [facility] OFFICE [facility] 2021-12-15 2021-12-15 Outpatient Letitia CONN [facility] [id number] Univers 09:30:00 09:48:51 JINGKENAN grossman [facility] 2021-12-15 2021-12-15 Outpatient [facility] [id number] Univers 09:30:00 09:30:00 JING ity of [facility] 2021-12-15 2021-12-15 Telephone FabienRUST 1.2.425.261 [id number] Univers 00:00:00 00:00:00 Jing HEALTH 350.1.13.10 it y of [place] 4.2.7.2.686 Stephan as SAMUEL?BLEA [id number] [place] erendira YODER 044 [facility] OFFICE [facility] 2021-12-09 2021-12-09 Orders Doctor ROSANNA 1.2.840.114 [id number] Univers 00:00:00 00:00:00 Only Unassigned, ROSA MARIA 350.1.13.10 ity of [place] [facility] 4.2.7.2.686 Stephan as [id number] [address] 2021-12-04 2021-12-04 Telephone ToiRUST 1.2.741.760 [id number] Univers 00:00:00 00:00:00 Dany S HEALTH 350.1.13.10 it y [facility] 4.2.7.2.686 Stephan as SAMUEL?BLEA [id number] [place] erendira BENITO 198 [facility] OFFICE [facility] 2021-12-01 2021-12-01 Telephone [facility] 1.2.605.150 [id number] Univers 00:00:00 00:00:00 Desiree KAN 350.1.13.10 ity of [place] 4.2.7.2.[place] [id number] [place] erendira SCHAEFFER 9 [facility] 2021-11-27 2021-11-27 Telephone JanuszRUST 1.2.345.158 [id number] Univers 00:00:00 00:00:00 Desiree KAN 350.1.13.10 ity [facility] 4.2.7.2.686 [place] [id number] [place]s dicmarcelino NAL 9 [facility] 2021-11-24 2021-11-24 [facility] [id number] Univers 09:00:00 09:15:07 SENDIL ity of [facility] 2021-11-24 2021-11-24 Office JanuszRUST 1.2.840.114 [id number] Univers 09:00:00 09:15:07 Visit Desiree KAN 350.1.13.10 ity of [facility] 4.2.7.2.686 [place] [id number] [place] 517339 [facility] 2021-11-24 2021-11-24 [facility] [id number] Univers 09:00:00 09:00:00 SENDIL ity [facility] 2021-11-24 2021-11-24 Telephone JanuszRUST 1.2.074.704 [id number] Univers 00:00:00 00:00:00 Desiree KAN 350.1.13.10 ity of [place] 4.2.7.2.686 [place] [id number] [address] 2021-11-21 2021-11-21 Telephone Janusz [facility] 1.2.983.112 [id number] Univers 00:00:00 00:00:00 Desiree KAN 350.1.13.10 ity of [place] 4.2.7.2.686 [place] [id number] [place] 517339 [facility] 2021-11-18 2021-11-18 Outpatient R JANUSZ [facility] [id number] Univers 08:36:17 23:59:00 SENDIL iteva [facility] 2021-11-18 2021-11-18 [facility], Adc Lab [facility] 1.2.840.114 [id number] Univers 10:00:00 10:15:00 Visit Desiree Boudreaux 350.1.13. 10 ity [facility] 4.2.7.2.686 [place] [phone] [facility] 353 [facility] 2021-11-18 2021-11-18 Outpatient R [facility] [id number] Univers 10:00:00 10:00:00 ity of [facility] 2021-11-18 2021-11-18 Outpatient R JANUSZ [facility] [id number] Univers 09:00:00 09:00:00 SENDIL ity [facility] 2021-11-18 2021-11-18 [facility] [id number] Univers 08:36:17 08:36:17 SENDIL ity [facility] 2021-11-13 2021-11-13 Telephone FbaienRUST [id number] Univers 00:00:00 00:00:00 Jing HEALTH [id number] it y of [place] 4.2.7.2.686 Stephan as SAMUEL?BLEA [phone] [place] [facility] [address] [facility] 2021-11-10 2021-11-10 Orders Doctor ROSANNA [id number] Univers 00:00:00 00:00:00 Only Unassigned, ROSA MARIA [id number] ity [place] [facility] 4.2.7.2.686 Stephan as [phone] [facility] [address] 2021-10-23 2021-10-23 Office [facility] [id number] Univers 10:00:00 10:00:00 Visit Krystina Mojica HEALTH 350.1.13.10 it y of [place] 4.2.7.2.686 Stephan as SAMUEL?BLEA [phone] [place] dorothymarcelino BENITO [address] [facility] 2021-10-23 2021-10-23 [facility] [id number] Univers 10:00:00 09:53:14 KRYSTINA ity [facility] 2021-10-15 2021-10-15 [facility] [id number] Univers 08:22:20 23:59:00 KRYSTINA ity [facility] 2021-10-15 2021-10-15 [facility] IleanaRUST 1.2.840.114 [id number] Univers 08:22:20 23:59:00 Encounter Krystina URRUTIATON 350.1.13.10 ity [place] [place] [phone] [facility] [address] 2021-09-25 2021-09-25 Telephone TejedaRUST 1.2.840.114 [id number] Univers 00:00:00 00:00:00 Krystina Mojica HEALTH 350.1.13.10 it y of [place] 4.2.7.2.686 Stephan as SAMUEL?BLEA [phone] [place] erendira BENITO 198 [facility] OFFICE [facility] 2021-09-19 2021-09-19 Office IleanaRUST 1.2.314.295 [id number] Univers 09:45:00 09:45:38 Visit Krystina Mojica HEALTH 350.1.13.10 it y of [place] 4.2.7.2.686 Stephan as SAMUEL?BLEA [phone] [place] erendira BENITO 198 [facility] 2021-09-19 2021-09-19 Outpatient [facility] [id number] Univers 09:45:00 09:45:38 KRYSTINA grossman [facility] 2021-09-19 2021-09-19 Outpatient [facility] [id number] Univers 09:45:00 09:45:00 KRYSTINA grossman [facility] 2021-09-18 2021-09-18 Telephone [facility] 1.2.926.219 [id number] Univers 00:00:00 00:00:00 Dany S HEALTH 350.1.13.10 it y of [place] 4.2.7.2.686 Stephan as SAMUEL?BLEA [phone] [place]s erendira BENITO 198 [facility] OFFICE [facility] 2021-09-18 2021-09-18 Refjuan Conn [facility] 1.2.840.114 [id number] Univers 00:00:00 00:00:00 Jing HEALTH 350.1.13.10 it y of [place] 4.2.7.2.686 Stephan as SAMUEL?BLEA [phone] Ks erendira BENITO 044 [facility] OFFICE [facility] 2021-09-14 2021-09-14 Orders Doctor ROSANNA 1.2.840.114 [id number] Univers 00:00:00 00:00:00 Only Unassigned, ROSA MARIA 350.1.13.10 ity of [place] [facility] 4.2.7.2.686 Stephan as [phone] [address] 2021-09-01 2021-09-01 Refill Janusz [facility] 1.2.840.114 [id number] Univers 00:00:00 00:00:00 Desiree OpheliaIsidroLewisIsidro LUCIUS 350.1.13.10 ity of [facility] 4.2.7.2.686 [place] [phone] [place]s dical NAL 059 [facility] 2021-08-27 2021-08-27 Telephone Toi [facility] 1.2.681.997 [id number] Univers 00:00:00 00:00:00 Dany S HEALTH 350.1.13.10 it [facility] 4.2.7.2.686 Stephan as SAMUEL?BLEA [phone] Ks dical BEBAEY 198 [facility] OFFICE [facility] 2021-08-26 2021-08-26 Telephone Fabien [facility] 1.2.094.989 [id number] Univers 00:00:00 00:00:00 Jing HEALTH 350.1.13.10 it y [facility] 4.2.7.2.686 Stephan as SAMUEL?BLEA [phone] Ks dicmarcelino BENITO 044 [facility] OFFICE [facility] 2021-08-26 2021-08-26 Orders Doctor ROSANNA 1.2.840.114 [id number] Univers 00:00:00 00:00:00 Only Unassigned, ROSA MARIA 350.1.13.10 ity of [place] [facility] 4.2.7.2.686 Stephan as [phone] [address] 2021-08-21 2021-08-21 Outpatient R ILEANA [facility] [id number] Univers 11:00:00 11:30:52 KRYSTINA ity of [facility] 2021-08-21 2021-08-21 [facility]ater Lab, Tayo - Chris [facility] 1.2.840.1 14 [id number] Univers 11:15:00 11:30:00 Visit Connor Conna HEALTH 350.1.13.10 ity [facility] 4.2.7.2.686 Stephan as SAMUEL?BLEA [phone] [place]s erendira BENITO 353 [facility] OFFICE [facility] 2021-08-21 2021-08-21 Office Dany Cm [facility] 1.2.840.114 [id number] Univers 11:00:00 11:15:00 Visit Krystina Tejeda [facility] 350.1.13.10 ity of [place] 4.2.7.2.686 Stephan as SAMUEL?BLEA [phone] Ks erendira BENITO 198 [facility] OFFICE [facility] 2021-08-21 2021-08-21 Outpatient [facility] [id number] Univers 11:00:00 11:00:00 KRYSTINA iteva [facility] 2021-08-21 2021-08-21 Office FabienRUST 1.2.840.114 [id number] Univers 10:30:00 11:00:00 Visit [facility] 350.1.13.10 it y of [place] 4.2.7.2.686 Stephan as SAMUEL?BLEA [phone] Ks erendira BENITO 044 [facility] OFFICE [facility] 2021-08-21 2021-08-21 Outpatient R FABIEN [facility] [id number] Univers 10:30:00 10:30:00 JING iteva [facility] 2021-08-09 2021-08-09 [facility] JanuszRUST 1.2.840.114 [id number] Univers 00:00:00 00:00:00 Desiree KAN 350.1.13.10 ity of [place] 4.2.7.2.[place] [phone] [facility] NAL [address] [place] [address] 2021-07-30 2021-07-30 Refill JanuszRUST 1.2.840.114 [id number] Univers 00:00:00 00:00:00 Desiree KAN 350.1.13.10 ity of [place] 4.2.7.2.686 [place] [phone] Ks dicva NAL [address] [place] [address] 2021-07-28 2021-07-28 Emergency JoseRUST 1.2.840.114 [id number] Univers 10:43:00 12:23:00 Julia KAN 350.1.13.10 ity of [place] 4.2.7.2.686 [place] [phone] [facility] [address] 2021-07-28 2021-07-28 Office JanuszRUST 1.2.840.114 [id number] Univers 09:30:00 10:01:41 Visit Sendil Ector KAN 350.1.13.10 ity [facility] 4.2.7.2.686 [place] [facility] [phone] Ks dical NAL 059 [facility] 2021-07-28 2021-07-28 [facility] [id number] Univers 09:30:00 10:01:41 SENDIL ity [facility] 2021-07-28 2021-07-28 Outpatient R JANUSZRUST ERT [id number] Univers 09:30:00 10:01:41 SENDIL ity [facility] 2021-07-28 2021-07-28 [facility] [id number] Univers 09:30:00 10:01:41 SENDIL ity [facility] 2021-07-28 2021-07-28 Office JanuszRUST 1.2.840.114 [id number] Univers 09:30:00 10:01:41 Visit Sendmindy KAN 350.1.13.10 ity [facility] 4.2.7.2.686 [place] [facility] [phone] Ks dicva NAL [address] [place] [address] 2021-07-28 2021-07-28 Outpatient [facility] [id number] Univers 09:30:00 09:30:00 SENDIL ity [facility] 2021-07-28 2021-07-28 Outpatient [facility] [id number] Univers 09:30:00 09:30:00 SENDIL ity [facility] 2021-07-24 2021-07-24 Aron WinslowRUST 1.2.840.114 [id number] Univers 00:00:00 00:00:00 Wondiful A [facility] 350.1.13.10 ity of [place] 4.2.7.2.686 Stephan as PROFESSIO [phone] Ks dical NAL [address] OFFICE BUILDING ONE 2021-07-23 2021-07-23 Outpatient R JANUSZ [facility] [id number] Univers 10:00:00 10:00:00 SENDIL ity [facility] 2021-07-04 2021-07-04 Outpatient R TEX [facility] [id number] Univers 09:30:00 10:13:30 [facility] 2021-07-02 2021-07-02 Office PamelaRUST 1.2.444.708 [id number] Univers 09:00:00 09:28:07 Visit Michael KAN 350.1.13.10 ity of [place] 4.2.7.2.686 [place] [phone] Ks dical NAL 085 [facility] 2021-07-02 2021-07-02 Outpatient R CORWIN SANTIAGOIDSimeon [facility] [id number] Univers 09:00:00 09:28:07 PAMELA, [facility]IDL [facility] 2021-07-02 2021-07-02 [facility] [id number] Univers 09:00:00 09:00:00 PAMELA [facility]L [facility] 2021-07-02 2021-07-02 Orders Doctor MARTE 1.2.840.114 [id number] Univers 00:00:00 00:00:00 Only Unassigned, ROSA MARIA 350.1.13.10 ity of [place] [facility] 4.2.7.2.686 Stephan as [phone] [address] 2021-06-20 2021-06-20 Orders Doctor ROSANNA 1.2.840.114 [id number] Univers 00:00:00 00:00:00 Only Unassigned, ROSA MARIA 350.1.13.10 ity of [place] [facility] 4.2.7.2.686 Stephan as [phone] [address] 2021-06-14 2021-06-14 Outpatient R CORWIN SANTIAGOIDL [facility] [id number] Univers 19:30:00 19:30:00 CAMI SANTIAGOL ity [facility] 2021-06-12 2021-06-12 Outpatient R [facility] [id number] Univers 09:45:00 09:45:00 ity of [facility] 2021-06-07 2021-06-07 Goldbeater 1, [facility] Sleep Lab Bed [facility] 1. 2.840.114 [id number] Univers 19:30:00 22:00:00 Visit Michael Santiago 350.1.13. 10 ity [facility] 4.2.7.2.686 [facility] [phone] [facility] [address] 2021-06-07 2021-06-07 Outpatient R PAMELA MICHAEL [facility] [id number] Univers 19:30:00 19:30:00 NOLANCAMI GRACEL ity [facility] 2021-06-07 2021-06-07 Orders Doctor MARTE 1.2.840.114 [id number] Univers 00:00:00 00:00:00 Only Unassigned, ROSA MARIA 350.1.13.10 ity of [facility] 4.2.7.[address] [place] [address] [phone] [facility] [address] 2021-05-28 2021-05-28 Outpatient R NOLANAMPAROSIGRIDCORWINDAA [facility] [id number] Univers 09:40:00 09:40:00 MICHAEL SANTIAGO ity [facility] 2021-05-12 2021-05-12 Outpatient R ILEANA [facility] [id number] Univers 09:20:00 09:20:00 KRYSTINA ity [facility] 2021-05-07 2021-05-07 Outpatient R MICHAEL SANTIAGO [facility] [id number] Univers 19:30:00 19:30:00 PAMELA CORWINADA ity [facility] 2021-05-05 2021-05-05 Laboratory Only, Adc Test [facility] 1.2.840. 114 [id number] Univers 09:45:00 10:00:00 Only Michael Santiago 350.1.13. 10 ity of [place] 4.2.7.2.686 [place] [phone] [facility] [address] 2021-05-05 2021-05-05 Outpatient R MICHAEL SANTIAGO [facility] [id number] Univers 09:45:00 09:45:00 MICHAEL SANTIAGO ity of [facility] 2021-05-05 2021-05-05 Orders Doctor ROSANNA 1.2.840.114 [id number] Univers 00:00:00 00:00:00 Only Unassigned, ROSA MARIA 350.1.13.10 ity of [place] [facility] 4.2.7.2.686 Stephan as [phone] [facility] [address] 2021-04-29 2021-04-29 Orders Doctor ROSANNA 1.2.840.114 [id number] Univers 00:00:00 00:00:00 Only Unassigned, ROSA MARIA 350.1.13.10 ity of [place] [facility] 4.2.7.2.686 Stephan as [id number] [facility] [address] 2021-04-24 2021-04-24 Telephone Janusz [facility] 1.2.677.247 [id number] Univers 00:00:00 00:00:00 Desiree KAN 350.1.13.10 ity of [place] 4.2.7.2.686 [place] [phone] [facility] 059 [facility] 2021-04-22 2021-04-22 Office Pamela [facility] 1.2.287.805 [id number] Univers 10:00:00 10:30:00 Visit Corwinmesimeon Calvo MULTISPEC 350.1.13.10 ity of [facility] 4.2.7.2.686 [place] [phone] [facility] BRITTANIE MARX [address] [facility] 2021-04-22 2021-04-22 Outpatient R MICHAEL SANTIAGO [facility] [id number] Univers 10:00:00 10:13:07 MICHAEL SANTIAGO ity of [facility] 2021-04-22 2021-04-22 Outpatient R CORWIN SANTIAGOIDSimeon [facility] [id number] Univers 10:00:00 10:00:00 PAMELA [facility] 2021-04-21 2021-04-21 Outpatient R ILEANA [facility] [id number] Univers 13:40:00 15:17:05 KRYSTINA grossman [facility] 2021-04-21 2021-04-21 Ancillary [place] [facility] 1.2.840. 114 [id number] Univers 13:40:00 15:17:05 Visit Krystina Tejeda LUICUS 350.1.13.10 ity of [facility] 4.2.7.2.686 [place] [phone] Ks dical NAL 179 [facility] 2021-04-21 2021-04-21 Outpatient R ILEANA [facility] [id number] Univers 13:40:00 15:17:05 [facility] 2021-04-16 2021-04-16 Goldbeater Awilda, [facility] Lab Main [facility] 1.2.8 40.114 [id number] Univers 09:15:00 09:30:00 Visit Desiree Boudreaux 350.1.13. 10 ity of [facility] 4.2.7.2.686 [place] [phone] Ks dicmarcelino NAL 353 [facility] 2021-04-16 2021-04-16 [facility] [id number] Univers 09:15:00 09:15:00 SENDIL [facility] 2021-04-16 2021-04-16 [facility] [id number] Univers 09:15:00 09:15:00 SENDIL [facility] 2021-04-16 2021-04-16 Refill JanuszRUST 1.2.840.114 [id number] Univers 00:00:00 00:00:00 Sendil Ector KAN 350.1.13.10 ity of [place] 4.2.7.2.686 [place] [id number] Ks dical NAL 059 [facility] 2021-04-11 2021-04-11 Telephone [facility] 1.2.840.114 [id number] Univers 00:00:00 00:00:00 Alejandra KAN 350.1.13.10 i ty of [place] 4.2.7.2.686 [place] [phone] Ks dical NAL 134 [facility] 2021-04-08 2021-04-08 Nurse Nurse, [facility] Fam [facility] 1.2.840.114 [id number] Univers 09:33:47 09:34:03 Visit Ronn Coffmans Gualberto KAN 350.1.13 .10 ity of [facility] 4.2.7.2.686 [place] [phone] Ks dical NAL 044 [facility] 2021-04-08 2021-04-08 Outpatient R AUGUSTUS [facility] [id number] Univers 10:30:00 09:10:27 ERAN [facility] 2021-04-08 2021-04-08 Outpatient R AUGUSTUS [facility] [id number] Univers 10:30:00 09:10:27 [facility] 2021-04-08 2021-04-08 Imm/Inj Nurse, [facility] Pob Immunization [facility] 1.2.840.114 [id number] Univers 09:10:19 09:10:27 Visit Eran Coffman 350.1.13 .10 ity of [facility] 4.2.7.2.686 [place] [phone] Ks dical NAL 421 [facility] 2021-04-04 2021-04-04 [facility] [id number] Univers 09:30:00 10:00:49 ALEJANDRA ity [facility] 2021-04-04 2021-04-04 Outpatient [facility] [id number] Univers 09:30:00 10:00:49 ALEJANDRA ity [facility] 2021-04-04 2021-04-04 Office [facility] 1.2.840.114 [id number] Univers 08:59:12 10:00:49 Visit Alejandra KAN 350.1.13.10 i ty of [place] 4.2.7.2.686 [place] [phone] Ks dical NAL 098 [facility] 2021-04-04 2021-04-04 Outpatient [facility] [id number] Univers 09:30:00 09:30:00 ALEJANDRA ity of [facility] 2021-04-04 2021-04-04 Telephone [facility] 1.2.840.114 [id number] Univers 00:00:00 00:00:00 Alejandra KAN 350.1.13.10 i ty of [place] 4.2.7.2.686 [place] [phone] Ks dical NAL 098 [facility] 2021-03-24 2021-03-24 Case NaylaRUST 1.2.840.114 [id number] Univers 00:00:00 00:00:00 Management WonOrbotix 350.1.13.10 ity of [place] 4.2.7.2.686 Stephan as SAMUEL?BLEA [phone] [place]s dicmarcelino [address] 2021-03-18 2021-03-18 Outpatient R MICHAEL SANTIAGO [facility] [id number] Univers 10:00:00 10:00:00 [facility] 2021-03-18 2021-03-18 Goldbeater Arvin Arroyo Sleep Lab [facility] 1.2 .840.114 [id number] Univers 09:35:15 09:50:15 Visit Michael Santiago 350.1.13. 10 ity of [place] 4.2.7.2.686 [place] CAMPUS [phone] [address] 2021-03-17 2021-03-17 Telephone [facility] 1.2.840.114 [id number] Univers 00:00:00 00:00:00 Alejandra KAN 350.1.13.10 i ty of [place] 4.2.7.2.686 [place] [phone] Ks dical NAL 134 [facility] 2021-03-12 2021-03-12 Outpatient R [facility] [id number] Univers 10:12:00 12:40:00 E, DOMINIC grossman o f [facility] 2021-03-12 2021-03-12 Hospital [facility] 1.2.840.114 [id number] Univers 10:12:00 12:40:00 Encounter e, Dominic KAN 350.1.13.10 ity of [place] 4.2.7.2.686 [place] SURGICAL [phone] [facility] [address] 2021-03-12 2021-03-12 Surgery [facility] 1.2.840.114 [id number] Univers 11:44:00 12:23:00 e, Maribelletitia KAN 350.1.13.10 ity of [place] 4.2.7.2.686 [place] SURGICAL [phone] [facility] [address] 2021-03-12 2021-03-12 Orders Doctor MARTE 1.2.840.114 [id number] Univers 00:00:00 00:00:00 Only Unassigned, ROSA MARIA 350.1.13.[address] [facility] 4.2.7.2.686 Stephan as [id number] [address] 2021-03-11 2021-03-11 Outpatient R [facility] 019 [id number] Univers 10:45:00 10:45:00 E, DOMINIC bernardoeva o f [facility] 2021-03-11 2021-03-11 Outpatient R [facility] 588 [id number] Univers 10:45:00 10:45:00 E, MARIBELLetitia grossman o f [facility] 2021-03-11 2021-03-11 Outpatient R [facility] 613 [id number] Univers 10:45:00 10:45:00 E, CHETANDALI grossman o f [facility] 2021-03-10 2021-03-10 [facility] [id number] Univers 13:00:00 13:34:06 WONDIFUL ngoc o [facility] 2021-03-10 2021-03-10 Office NaylaRUST 1.2.840.114 [id number] Univers 12:28:10 13:34:06 Visit Wondiful A HEALTH 350.1.13.10 ity of [place] 4.2.7.2.686 Stephan as SAMUEL?BLEA [phone] [place]s dicmarcelino YODEREY [address] MEDICAL OFFICE [facility] 2021-03-08 2021-03-08 Case NaylaRUST 1.2.840.114 [id number] Univers 00:00:00 00:00:00 Management Wondiful A HEALTH 350.1.13.10 ity of [place] 4.2.7.2.686 Stephan as SAMUEL?BLEA [phone] Ks erendira BENITO 044 [facility] OFFICE [facility] 2021-03-07 2021-03-07 [facility] 1.2.902.034 [id number] Univers 08:23:09 23:59:00 Encounter Wondiful A [place] 350.1.13.10 ity of [place] 4.2.7.2.686 [place] [id number] [facility] [address] 2021-03-07 2021-03-07 [facility] [id number] Univers 00:00:00 23:59:00 WONDIFUL ity o nadia [facility] 2021-03-07 2021-03-07 Outpatient [facility] [id number] Univers 00:00:00 23:59:00 WONDIFUL ity o f [facility] 2021-03-07 2021-03-07 Goldbeater Arvin [facility] Main [facility] 1.2.8 40.114 [id number] Univers 09:21:20 09:36:20 Visit Shaggy Winslow [place] 350.1.13. 10 ity of [place] 4.2.7.2.[place] [phone] Ks erendira SCHAEFFER 353 [facility] 2021-03-07 2021-03-07 [facility] 1.2.735.549 [id number] Univers 08:22:34 08:22:34 Encounter Wondiful A [place] 350.1.13.10 ity of [place] 4.2.7.2.686 [place] C[place]US [id number] [facility] [address] 2021-03-07 2021-03-07 Outpatient R NAYLA [facility] [id number] Univers 08:22:34 08:22:34 WONDIFUL ity o f [facility] 2021-03-04 2021-03-04 Telephone NaylaRUST 1.2.840.114 [id number] Univers 00:00:00 00:00:00 Wondiful A HEALTH 350.1.13.10 [facility] 4.2.7.2.686 Stephan as SAMUEL?BLEA [phone] [address] MEDICAL OFFICE BUILDING 2021-02-28 2021-02-28 [facility] 1.2.844.141 [id number] Univers 08:59:37 23:59:00 Encounter Wondiful A [place] 350.1.13.10 ity of [facility] 4.2.7.2.686 [place] [id number] [facility] [address] 2021-02-28 2021-02-28 [facility] 1.2.631.161 [id number] Univers 08:57:31 08:58:00 Encounter Wondiful A [place] 350.1.13.10 ity of [facility] 4.2.7.2.686 [place] [id number] [facility] [address] 2021-02-28 2021-02-28 Outpatient [facility] [id number] Univers 08:57:31 08:58:00 WONDIFUL ity o f [facility] 2021-02-27 2021-02-27 Orders Doctor ROSANNA 1.2.840.114 [id number] Univers 00:00:00 00:00:00 Only Unassigned, ROSA MARIA 350.1.13.10 ity of [place] [facility] 4.2.7.2.686 Stephan as [phone] [facility] [address] 2021-02-25 2021-02-25 Telephone [facility] 1.2.840.114 [id number] Univers 00:00:00 00:00:00 Alejandra Horn[place] 350.1.13.10 i ty of [place].2.7.2.686 [place] Profess[place] [phone] Ks dicmarcelino nal 8 [facility] 2021-02-21 2021-02-21 Office [facility] 1.2.840.114 [id number] Univers 09:21:47 12:11:05 Visit Alejandra Lucius 350.1.13.10 i ty of [place] 4.2.7.2.686 [place] Profess[place] [id number] [address] 2021-02-21 2021-02-21 Outpatient R [facility] [id number] Univers 10:30:00 10:30:00 ALEJANDRA ity of [facility] 2021-02-21 2021-02-21 Case NaylaRUST 1.2.840.114 [id number] Univers 00:00:00 00:00:00 Management Wondiful A Health 350.1.13.10 ity of [place] 4.2.7.2.686 Stephan as Samuel?Blea [phone] Ks erendira benito 044 [facility] Office [facility] 2021-02-21 2021-02-21 Telephone [facility] 1.2.840.114 [id number] Univers 00:00:00 00:00:00 Alejandragertrudis Urrutiaton 350.1.13.10 i [place] of [place] [phone] [facility] nal 8 [facility] 2021-02-18 2021-02-18 [facility], Ang - Chris [facility] 1.2.840.1 [id number] Univers 10:09:19 10:24:19 Visit Shaggy [place] [facility] 350.1.13.1 0 ity of [place] 4.2.7.2.686 Stephan as Samuel?Blea [phone] [place] erendira benito [address] [facility] Office [facility] 2021-02-18 2021-02-18 Office PeñuelasRUST 1.2.840.114 [id number] Univers 08:53:27 10:11:05 Visit Wondiful [facility] 350.1.13.10 ity of [place] 4.2.7.2.686 Stephan as Samuel?Blea [phone] [place] dorothymarcelino kney [address] [facility] 2021-02-18 2021-02-18 Outpatient R NAYLA [facility] [id number] Univers 09:30:00 09:30:00 WONDIFUL ity o f [facility] 2021-02-18 2021-02-18 Orders Doctor ROSANNA 1.2.840.114 [id number] Univers 00:00:00 00:00:00 Only Unassigned, ROSA MARIA 350.1.13.10 ity [place] [facility] 4.2.7.2.686 Stephan as [phone] [address] 2021-02-11 2021-02-11 Refill JanuszRUST 1.2.840.114 [id number] Univers 00:00:00 00:00:00 Desiree Kan 350.1.13.10 ity of [employer] [place] [phone] [place] dical nal 059 [facility] 2021-02-08 2021-02-08 Refill Nayla [facility] 1.2.840.114 [id number] Univers 00:00:00 00:00:00 Wondiful A HEALTH 350.1.13.10 ity of [place] 4.2.7.2.686 Stephan as PROFESSIO [phone] [facility] NAL [address] [facility] 2021-01-22 2021-01-22 [facility], Adc Lab [facility] 1.2.840.114 [id number] Univers 09:17:00 09:32:00 Visit Desiree Boudreaux 350.1.13. 10 ity of [employer] [place]2.7.[place] [phone] [place] dical jayda 353 [facility] 2021-01-22 2021-01-22 Office Janusz [facility] 1.2.840.114 [id number] Univers 08:46:05 09:10:36 Visit Desiree Kan 350.1.13.10 ity of [employer] [place] 4[place]2.7.2.[place] [phone] Me dical nal 059 [facility] 2021-01-22 2021-01-22 Office JanuszRUST 1.2.840.114 [id number] Univers 08:46:05 09:10:36 Visit Sendmindy Kan 350.1.13.10 ity of [place] [phone] [place] [address] [facility] 2021-01-22 2021-01-22 Outpatient R JANUSZ [facility] [id number] Univers 09:00:00 09:00:00 SENDIL ity [facility] 2020-10-24 2020-10-24 Telephone JanuszRUST [id number] Univers 00:00:00 00:00:00 Sendil Ector [place] [id number] ity of [employer] [place] [phone] [address] 2020-10-15 2020-10-15 Office JanuszRUST 1.2.840.114 [id number] Univers 10:08:42 10:44:13 Visit Desiree [place] 350.1.13.10 ity of [place] [phone] [facility] nal [address] [place] [address] 2020-10-15 2020-10-15 Outpatient R JANUSZ [facility] [id number] Univers 10:30:00 10:30:00 SENDIL ity [facility] 2020-10-15 2020-10-15 Goldbeater 2, Adc Lab [facility] 1.2.840.114 [id number] Univers 09:10:30 09:25:30 Visit Shaggy Winslow 350.1.13. 10 it[place] of [employer] [place] [phone] [facility] 353 [facility] 2020-08-26 2020-08-26 Hospital Nayla [facility] 1.2.594.901 [id number] Univers 09:31:24 23:59:00 Encounter Wondiful A [place] 350.1.13.10 it[place] of [place] [phone] [facility] [address] 2020-08-26 2020-08-26 Outpatient R NAYLA [facility] [id number] Univers 00:00:00 00:00:00 WONDIFUL ity o f [facility] 2020-08-26 2020-08-26 Orders Doctor ROSANNA 1.2.840.114 [id number] Univers 00:00:00 00:00:00 Only Unassigned, ROSA MARIA 350.1.13.10 ity [place] [facility] 4.2.7.2.686 Stephan as [phone] [facility] [address] 2020-08-20 2020-08-20 Office NaylaRUST 1.2.840.114 [id number] Univers 08:33:21 10:03:25 [facility] 350.1.13.10 ity of [place] 4.2.7.2.686 [place] as Professio [phone] [place] dical nal [address] Building One 2020-08-20 2020-08-20 Outpatient R NAYLA [facility] [id number] Univers 08:45:00 08:45:00 WONDIFUL ity o f [facility] 2020-08-15 2020-08-15 [facility] [id number] Univers 10:30:00 10:30:00 SENDIL ity of [facility] 2020-08-15 2020-08-15 Office JanuszRUST 1.2.840.114 [id number] Univers 09:53:17 10:26:09 Visit Sendil E[place] 350.1.13.10 it[place] of [place] [phone] [place] dical nal [address] 2020-08-01 2020-08-01 Outpatient R MINO [facility] [id number] Univers 16:00:00 16:00:00 ZI iteva of [facility] 2020-07-11 2020-07-11 [facility] [id number] Univers 16:00:00 [facility]:00:[facility] 2020-04-16 2020-04-16 Office [facility] 1.2.840.114 [id number] Univers 09:22:43 10:19:03 Visit Desiree Kan 350.1.13.10 [place] of [place] [phone] [place] dical nal [address] [place] [address] 2020-04-16 2020-04-16 [facility] [id number] Univers 10:00:00 10:00:00 SENDMINDY [facility] 2020-03-14 2020-03-14 Laboratory Pc, Adc Echo Room 1 - [facility] 1 .2.840.114 [id number] Univers 10:12:21 11:41:50 Only Promise Martinez 350.1.13.10 it[place] of [place] [phone] [place] dic[place] nal [address] [place] [address] 2020-03-14 2020-03-14 Outpatient R [facility] [id number] Univers 11:00:00 11:00:00 ity of [facility] 2020-03-14 2020-03-14 Telephone [facility] 1.2.139.091 [id number] Univers 00:00:00 00:00:00 Desiree Kan 350.1.13.10 it[place] of [place] [phone] [place] dical nal [address] [place] [address] 2020-03-13 2020-03-13 [facility] 1.2.840.114 [id number] Univers 07:51:43 23:59:00 Encounter Desiree Kan 350.1.13.10 it[place] of [place] [phone] [facility] [address] 2020-03-13 2020-03-13 [facility] 1.2.840.114 [id number] Univers 07:51:12 23:59:00 Encounter Sendmindy Kan 350.1.13.10 ity of [place] 4.2.7.2.686 [facility] [phone] [address] 2020-03-13 2020-03-13 Outpatient [facility] [id number] Univers 07:00:00 07:00:00 SENDIL ity [facility] 2020-03-12 2020-03-12 [facility] 1.2.840.114 [id number] Univers 08:05:27 23:59:00 Encounter Desiree Kan 350.1.13.10 ity of [place] 4.2.7.2.686 [facility] [phone] [address] 2020-03-12 2020-03-12 [facility] 1.2.840.114 [id number] Univers 08:05:12 23:59:00 Encounter Desiree Kan 350.1.13.10 ity of [place] 4.2.7.2.686 [facility] [phone] [address] 2020-03-12 2020-03-12 Outpatient [facility] [id number] Univers 09:00:00 09:00:00 SENDIL ity [facility] 2020-03-05 2020-03-05 Office [facility] 1.2.840.114 [id number] Univers 09:35:47 10:14:17 Visit Desiree Kan 350.1.13.10 ity of [place] 4.2.7.2.686 [facility] [phone] [place] dical nal [address] [facility] 2020-03-05 2020-03-05 Outpatient R [facility] [id number] Univers 09:30:00 09:30:00 SENDIL ity [facility] 2020-03-05 2020-03-05 Orders Doctor ROSANNA 1.2.840.114 [id number] Univers 00:00:00 00:00:00 Only Unassigned, ROSA MARIA 350.1.13.10 it[place] [facility] 4.2.7.2.686 Stephan as [phone] [address] 2020-02-29 2020-02-29 Telephone Nayla [facility] 1.2.840.114 [id number] Univers 00:00:00 00:00:00 Wondiful A Health 350.1.13.10 ity of [place] 4.2.7.2.686 [place] as Professio [phone] [address] Office [facility] One 2020-02-27 2020-02-27 Refill Nayla [facility] 1.2.840.114 [id number] Univers 00:00:00 00:00:00 Wondiful A Health 350.1.13.10 ity of [place] 4.2.7.2.686 [place] as Professio [phone] [address] One 2020-02-25 2020-02-25 Case Nayla [facility] 1.2.840.114 [id number] Univers 00:00:00 00:00:00 Management Wondiful A Health 350.1.13.10 ity of [place] 4.2.7.2.686 [place] as Professio [phone] [address] Office [facility] One 2020-02-21 2020-02-21 Case Nayla [facility] 1.2.840.114 [id number] Univers 00:00:00 00:00:00 Management Wondiful A Health 350.1.13.10 ity of [place] 4.2.7.2.686 [place] as Professio [phone] [address] One 2020-02-20 2020-02-20 [facility], Adc Fam Pob I [facility] 1.2. 840.114 [id number] Univers 09:36:04 09:56:04 Visit Shaggy Winslow Health 350.1.13.1 0 ity of [place] 4.2.7.2.686 [place] as Professio [phone] [address] One 2020-02-20 2020-02-20 Office Nayla [facility] 1.2.840.114 [id number] Univers 08:38:38 09:42:24 Visit Wondiful A Health 350.1.13.10 ity of [place] 4.2.7.2.686 [place] as Professio [phone] [place] dical nal [address] Building One 2020-02-20 2020-02-20 Outpatient R NAYLA [facility] [id number] Univers 08:45:00 08:45:00 WONDIFUL ity o f [facility] 2020-02-14 2020-02-14 Hospital NaylaRUST 1.2.454.931 [id number] Univers 08:40:00 23:59:00 Encounter Wondiful A [place] 350.1.13.10 [place] [phone] [facility] [address] 2020-02-14 2020-02-14 [facility] [id number] Univers 00:00:00 00:00:00 WONDIFUL ity o f [facility] 2020-02-14 2020-02-14 Orders Doctor ROSANNA 1.2.840.114 [id number] Univers 00:00:00 00:00:00 Only Unassigned, ROSA MARIA 350.1.13.10 it[place] [facility] 4.2.7.2.686 Stephan as [phone] [facility] [address] 2019-12-05 2019-12-05 Refill NaylaRUST 1.2.840.114 [id number] Univers 00:00:00 00:00:00 Wondiful A Health 350.1.13.10 ity of [place] 4.2.7.2.686 Stephan as Professio [phone] [place] dical nal [address] Office [facility] One 2019-08-24 2019-08-24 Outpatient [facility] [id number] Univers 08:45:00 08:45:00 WONDIFUL ity o f [facility] 2019-08-24 2019-08-24 Telemedici NaylaRUST 1.2.840.114 [id number] Univers 07:14:47 07:29:47 ne Visit Wondiful A [place] 350.1.13.10 it[place] of [place] [phone] K[place] dic[address] 2019-08-24 2019-08-24 Letter Doctor ROSANNA 1.2.840.114 [id number] Univers 00:00:00 00:00:00 (Out) Unassigned, ROSA MARIA 350.1.13.10 ity of [place] [facility] 4.2.7.2.686 Stephan as [phone] [address] 2018-12-21 2018-12-21 Office [place], [facility] 1.2.104.903 [id number] Univers 12:51:55 13:57:03 Visit Rosie Collins [employer] 350.1.13.10 ity of [facility] 4.2.7.2.686 Stephan as MATERNAL [phone] Med ical & CHILD 107 [facility] 2018-12-21 2018-12-21 Orders Doctor ROSANNA 1.2.840.114 [id number] Univers 00:00:00 00:00:00 Only Unassigned, ROSA MARIA 350.1.13.10 ity of [place] [facility] 4.2.7.2.686 Stephan as [phone] [address] Results Test Description Test Time Test Comments Results Result Comments Source POCT URINALYSIS W/O SPECIFIC GRAVITY 2022-07-03 16:21:00 Test Item Value Reference Range Interpretation Comme nts POCT PH U (test code = 3254) 5 mg/dl 5-8 POCT U LEUK EST (test code = 3263) Negative Negative - Negative POCT U NIT (test code = 3262) Negative Negative - Negative POCT U PROT (test code = 3259) Trace Negative - Negative POCT U GLU (test code = 3256) Normal Negative - Negative POCT U KETONE (test code = 3258) Negative Negative - Negative POCT U BLD (test code = 3257) Negative Negative - Negative [facility] BranchPO[facility]INAL[facility] W/O SPECIFIC [id number] 16:21:00 Test Item Value Reference Range Interpretation Comments POCT PH U (test code = 3254) 5 mg/dl 5-8 POCT U LEUK EST (test code = Negative Negative - Negative 3263) POCT U NIT (test code = 3262) Negative Negative - Negative POCT U PROT (test code = 3259) Trace Negative - Negative POCT U GLU (test code = 3256) Normal Negative - Negative POCT U KETONE (test code = 3258) Negative Negative - Negative POCT U BLD (test code = 3257) Negative Negative - Negative [facility]A1C)2022-05-25 22:36:08 Test Item Value Reference Range Interpretation Comments HGB A1C (test code = 5.8 % 4.0-5.7 H 4548-4) MELANIE (test code = MELANIE) Reference RangesNormal: <5.7%Prediabetes: 5.7 - 6.4%Diabetes: > 6.5% Lab Interpretation (test Abnormal code = 65630-9) [facility] PAN[facility] ([id number])2022-05-25 20:33:21 Test Item Value Reference Range Interpretation Comments NA (test code = 143 mmol/L 135-145 5818866230) K (test code = 4.8 mmol/L 3.5-5.0 1457325700) CL (test code = 107 mmol/L 98-108 8698745366) CO2 TOTAL (test code = 24 mmol/L 23-31 3664246078) AGAP (test code = 2-16 7292152368) BUN (test code = 30 mg/dL 7-23 H 6588234472) GLUCOSE (test code = 113 mg/dL 70-110 H 8579720856) CREATININE (test code = 1.05 mg/dL 0.50-1.04 H 0388689060) TOTAL BILI (test code = 1.0 mg/dL 0.1-1.4 9003921098) CALCIUM (test code = 9.4 mg/dL 8.6-10.6 6758403256) T PROTEIN (test code = 7.8 g/dL 6.3-8.2 0904820784) ALBUMIN (test code = 4.4 g/dL 3.5-5.0 7689033396) ALK PHOS (test code = 145 U/L 34-122 H 2173423828) ALTv (test code = 39 U/L 5-35 H 1742-6) AST(SGOT) (test code = 44 U/L 13-40 H 0447618854) eGFR (test code = mL/min/1.73m2 0715513928) MELANIE (test code = MELANIE) Association of Glomerular Filtration Rate (GFR) and Staging of Kidney Disease* + --+ --+ ------+| GFR (mL/min/1.73 m2) ?| With Kidney Damage ?| ?Without Kidney Damage+ --------+ --------+ +| ?>90 ?| ?Stage one ?| ? Normal ?+ ---+ ---+ -------+| ?60-89 ?| ?Stage two ?| ? Decreased GFR ? + --+ --+ ------+| ?30-59 ?| ?Stage three ?| ? Stage three ? + --+ --+ ------+| ?15-29 ?| ?Stage four ? | ? Stage four ?+ ---+ ---+ -------+| ?<15 (or dialysis) ? ?| ?Stage five ? | ? Stage five ?+ ---+ ---+ -------+ *Each stage assumes the associated GFR level has been in effect for at least three months. ?Stages 1 to 5, with or without kidney disease, indicate chronic kidney disease. Notes: Determination of stages one and two (with eGFR >59mL/min/1.73 m2) requires estimation of kidney damage for at least three months as defined by structural or functional abnormalities of the kidney, manifested by either:Pathological abnormalities or Markers of kidney damage (including abnormalities in the composition of the blood or urine or abnormalities in imaging tests). Lab Interpretation Abnormal (test code = 79989-1) [facility] MAMM BILATERAL BOUCHRA CAD [id number] 10:39:44 - SCR MAMM BILATERAL BOUCHRA CAD DIGITALBILATERAL DIGITAL SCREENING MAMMOGRAM 3D/2D WITH CAD: 05/26/2018CLINICAL: Asymptomatic. Digital breast tomosynthesis was performed in addition to routine CC and MLOviews. Current mammographic images were evaluated by either a Svbtle M-Vu or a imagine ImageAdVantage Networkser CAD (computer aided detection system). No prior outside exams are currently available for comparison.There are scattered fibroglandular tissues in both breasts. [...] to recall the location where prior mammograms wereobtained. Please advise if your office has a record of prior studies so that attempts can be made toobtain prior mammograms for comparison.Ravinder Beatty M.D. rb/:06/07/2018 10:39:44 [employer] Supervisor: Minerva Long MM, [facility] Mammographyletter sent: BIRADS 1-2 Normal Mammogram BI-RADS: 2 Benign"
--- NOTE | 2022-11-16 16:44 | ER ---
Nurse's Notes [facility] Name: Debbi Soto Age: 67 yrs Sex: Female : 1955 Arrival Date: 11/16/2022 Time: 09:23 Bed 4 Private MD: Diagnosis: Displaced humerus fracture - left Presentation: 11/16 09:27 Chief complaint: Patient states: stumbled forward and fell on outreached hands, fell to iw her knees, did not hit head, c/o pain to left shoulder and levi knees. Coronavirus screen: At this time, the client does not indicate any symptoms associated with coronavirus-19. Ebola Screen: Patient negative for fever greater than or equal to 101.5 degrees Fahrenheit, and additional compatible Ebola Virus Disease symptoms Patient denies exposure to infectious person. Patient denies travel to an Ebola-affected area in the 21 days before illness onset. No symptoms or risks identified at this time. Initial Sepsis Screen: Does the patient meet any 2 criteria? No. Patient's initial sepsis screen is negative. Does the patient have a suspected source of infection? No. Patient's initial sepsis screen is negative. Risk Assessment: Do you want to hurt yourself or someone else? Patient reports no desire to harm self or others. Onset of symptoms was November 16, 2022. 09:27 Method Of Arrival: EMS: [facility] iw 09:27 Acuity: GONSALO 3 iw Historical: - Allergies: 09:29 Morphine; ll1 09:29 PENICILLINS; ll1 - PMHx: 09:29 diabetes mellitus; Hyperlipidemia; Hypertension; Sleep Apnea; ll1 - Immunization history:: Adult Immunizations up to date. - Social history:: Smoking status: Patient denies any tobacco usage or history of. Screenin:31 [facility] ED Fall Risk Assessment (Adult) History of falling in the last 3 months, ll1 including since admission Yes- single mechanical fall (1 pt). Abuse screen: Denies threats or abuse. Denies injuries from another. Nutritional screening: No deficits noted. Tuberculosis screening: No symptoms or risk factors identified. Assessment: 09:30 General: Appears in no apparent distress. Behavior is cooperative. Pain: Complains of ll1 pain in right knee Pain currently is 8 out of 10 on a pain scale. Neuro: Level of Consciousness is awake, alert, obeys commands, Oriented to person, place, time, situation, Moves all extremities. Cardiovascular: Patient's skin is warm and dry. Respiratory: Respiratory effort is even, unlabored, Respiratory pattern is regular, symmetrical. Derm: Skin is intact, is healthy with good turgor. Vital Signs: 09:30 BP 176 / 83; Pulse 79; Resp 16; Temp 98.2; Pulse Ox 95% on R/A; Weight 127.01 kg; ll1 Height 4 ft. 11 in. ; Pain 8/10; 09:30 Body Mass Index 56.55 (127.01 kg, 149.86 cm) ll1 09:30 Pain Scale: Adult ll1 ED Course: 09:23 Patient arrived in ED. am2 09:25 Saba Nice [facility]C [facility] kb 09:25 Dean Knight MD is Attending Physician. kb 09:29 Triage completed. ll1 09:29 Arm band placed on. ll1 09:30 Patient has correct armband on for positive identification. iw 09:47 Richelle Garcia, RN is Primary Nurse. iw 11:30 Provided Education on: follow up with ortho . iw 11:39 No provider procedures requiring assistance completed. Patient did not have IV access iw during this emergency room visit. Administered Medications: 09:41 Drug: Hydrocodone-Acetaminophen PO (7.5 mg-325 mg) 1 tabs Route: PO; aa5 11:41 Follow up: Response: No adverse reaction; Pain is decreased iw Medication: 09:31 VIS not applicable for this client. ll1 Outcome: 10:46 Discharge ordered by MD. kb 11:39 Discharged to home via wheelchair, with family. iw 11:39 Condition: good 11:39 Discharge instructions given to patient, family, Instructed on discharge instructions, follow up and referral plans. Demonstrated understanding of instructions, follow-up care, medications, Prescriptions given X 1. 11:40 Patient left the ED. iw Signatures: Saba Nice FNP-C FNP-Richelle Murray RN RN iw Daysi Lynn RN RN aa5 Tameka Hansen am2 Miguel Benitez RN RN ll1 Corrections: (The following items were deleted from the chart) 09:33 09:28 Chief complaint: Patient states: stumbled forward and fell on outreached hands, iw fell to her knees, did not hit head, c/o pain to left shoulder and levi knees [facility] : Coronavirus screen: At this time, the client does not indicate any symptoms iw associated with coronavirus-19. [facility] : Ebola Screen: Patient negative for fever greater than or equal to 101.5 degrees iw Fahrenheit, and additional compatible Ebola Virus Disease symptoms Patient denies exposure to infectious person. Patient denies travel to an Ebola-affected area in the 21 days before illness onset. No symptoms or risks identified at this time. [facility] : Risk Assessment: Do you want to hurt yourself or someone else? Patient reports no iw desire to harm self or others. [facility] : Initial Sepsis Screen: Does the patient meet any 2 criteria? No. Patient's initial sepsis screen is negative. Does the patient have a suspected source of infection? No. Patient's initial sepsis screen is negative. [facility] : Onset of symptoms was November 16, 2022 [facility] : Method Of Arrival: EMS: [facility] : Acuity: GONSALO 3 [facility] 11/17 08:21 11/16 10:00 Provided Education on: follow up with ortho . [facility]
--- NOTE | 2022-11-16 16:44 | EDPHYS ---
Physician Documentation [facility] Name: Debbi Soto Age: 67 yrs Sex: Female : 1955 Arrival Date: 11/16/2022 Time: 09:23 Bed 4 Private MD: ED Physician Dean Knight HPI: 11/16 09:27 This 67 yrs old Female presents to ER via Unassigned with complaints of Fall kb Injury, Shoulder Injury. 09:27 Details of fall: The patient fell from an upright position, while walking. Onset: The kb symptoms/episode began/occurred just prior to arrival. Associated injuries: The patient sustained left upper arm and anterior aspect of left shoulder, decreased range of motion, painful injury. Severity of symptoms: At their worst the symptoms were moderate, in the emergency department the symptoms are unchanged. The patient has not experienced similar symptoms in the past. The patient has not recently seen a physician. 09:27 Pt fell on her driveway onto outstretched left arm. c/o left shoulder and upper arm kb pain.. Historical: - Allergies: 09:29 Morphine; ll1 09:29 PENICILLINS; ll1 - PMHx: 09:29 diabetes mellitus; Hyperlipidemia; Hypertension; Sleep Apnea; ll1 - Immunization history:: Adult Immunizations up to date. - Social history:: Smoking status: Patient denies any tobacco usage or history of. ROS: 09:26 Constitutional: Negative for fever, chills, and weight loss. kb 09:26 MS/extremity: Positive for decreased range of motion, pain, tenderness, of the anterior aspect of left shoulder and left upper arm. 09:26 All other systems are negative. Exam: 09:26 Constitutional: This is a well developed, well nourished patient who is awake, alert, kb and in no acute distress. Head/Face: Normocephalic, atraumatic. ENT: Moist Mucous membranes Cardiovascular: Regular rate and rhythm with a normal S1 and S2. No gallops, murmurs, or rubs. No pulse deficits. Respiratory: Respirations even and unlabored. No increased work of breathing. Talking in full sentences Skin: Warm, dry with normal turgor. Normal color. Neuro: Awake and alert, GCS 15, oriented to person, place, time, and situation. Moves all extremities. Normal gait. 09:26 Musculoskeletal/extremity: Extremities: grossly normal except: noted in the left upper arm and anterior aspect of left shoulder: decreased ROM, pain, tenderness, ROM: limited active range of motion due to pain, in the anterior aspect of left shoulder, Circulation is intact in all extremities. Sensation intact. Vital Signs: 09:30 BP 176 / 83; Pulse 79; Resp 16; Temp 98.2; Pulse Ox 95% on R/A; Weight 127.01 kg; ll1 Height 4 ft. 11 in. ; Pain 8/10; 09:30 Body Mass Index 56.55 (127.01 kg, 149.86 cm) ll1 09:30 Pain Scale: Adult ll1 MDM: 09:25 Patient medically screened. kb 09:27 Data reviewed: vital signs, nurses notes. kb 10:11 Historians other than the Patient: EMS: [facility]. kb 10:44 Differential diagnosis: contusion, fracture, dislocation. Management of patient was kb discussed with the following: Dr Knight. agrees with sling and outpatient ortho followu. Independent interpretation of the following test(s) in the Emergency Department X-Ray: My interpretation is displaced humerus fracture. Counseling: I had a detailed discussion with the patient and/or guardian regarding: the historical points, exam findings, and any diagnostic results supporting the discharge/admit diagnosis, radiology results, the need for outpatient follow up, a orthopedic surgeon, to return to the emergency department if symptoms worsen or persist or if there are any questions or concerns that arise at home. 11/16 10:44 Order name: Sling; Complete Time: 11:32 kb Administered Medications: 09:41 Drug: Hydrocodone-Acetaminophen PO (7.5 mg-325 mg) 1 tabs Route: PO; aa5 11:41 Follow up: Response: No adverse reaction; Pain is decreased iw Disposition: 12:51 Co-signature as Attending Physician, Dean Knight MD I reviewed the patient's care rn provided by the Advanced Practice Provider and agree with the diagnosis and treatment plan. Disposition Summary: 11/16/22 10:46 Discharge Ordered Location: Home Condition: Stable kb Diagnosis - Displaced humerus fracture - left kb Followup: kb - With: Emergency Department - When: As needed - Reason: Worsening of condition Followup: kb - With: Private Physician - When: 2 - 3 days - Reason: Recheck today's complaints, Continuance of care, Re-evaluation by your physician Discharge Instructions: - Discharge Summary Sheet kb - Humerus Fracture Treated With Immobilization, [id number] kb - Humerus Fracture Treated With ORIF, Care After kb Forms: - Medication Reconciliation Form kb - Thank You Letter kb - Antibiotic Education kb - Prescription Opioid Use kb - Patient Portal Instructions kb Prescriptions: - Tramadol 50 mg Oral Tablet - take 1 tablet by ORAL route every 8 hours as needed; 12 tablet; Refills: 0, kb Product Selection Permitted Signatures: Saba Nice FNP-C FNP-Dean Noyola MD MD rn Daysi Lynn RN RN aa5 Miguel Benitez RN RN ll1 Richelle Garcia RN iw
[2022-11-16 18:43] VITALS: BP 176/83; TEMP 98.2; O2SAT 95
--- NOTE | 2022-11-17 14:16 | RAD REPORT ---
EXAM DESCRIPTION: RAD - Humerus Left - 11/16/2022 4:52 pm CLINICAL HISTORY: Fall Forward Pain and swelling COMPARISON: <Comparisons> FINDINGS: Mildly impacted fracture the proximal left humerus. No dislocation.
--- NOTE | 2022-11-17 14:17 | RAD REPORT ---
EXAM DESCRIPTION: RAD - Shoulder Left 2 View - 11/16/2022 4:52 pm CLINICAL HISTORY: POST Reduction Pain and swelling COMPARISON: <Comparisons> FINDINGS: Mildly comminuted impacted fracture the proximal left humerus is seen. No dislocation.
== END 2022-11-16 11:40 | disposition home or self-care (01) ==
LOC: ER 09:23
DX: S42.202A Unspecified fracture of upper end of left humerus, initial encounter for closed fracture (principal); W01.0XXA Fall on same level from slipping, tripping and stumbling without subsequent striking against object, initial encounter; Y93.89 Activity, other specified; Y92.9 Unspecified place or not applicable; Z88.0 Allergy status to penicillin; Z88.6 Allergy status to analgesic agent; I10 Essential (primary) hypertension; E78.5 Hyperlipidemia, unspecified; E11.9 Type 2 diabetes mellitus without complications; G47.30 Sleep apnea, unspecified
CPT/HCPCS: 99283

== ENCOUNTER 2023-03-12 23:27 | Emergency (ER) | payer OTHER ==
--- OUTSIDE RECORDS SUMMARY | 2023-03-12 23:42 | XMS REPORT | Continuity of Care Document ---
:[address] [facility] t Address [address] [place] [address] Care Team Providers Name Role Phone SHAGGY RAMIREZ Primary Care Physician Unavailable DOMINIC LANDEROS Attending Clinician Unavailable CINTHYA DUARTE Attending Clinician Unavailable CINTHYA DUARTE Attending Clinician Unavailable JANUSZ SENDMINDY K.H. Attending Clinician Unavailable MICHAEL SANDHU Attending Clinician Unavailable MICHAEL SANDHU Attending Clinician Unavailable Lab, Ang - Db Attending Clinician Unavailable Janusz TREJO, Sendmindy K.H. Attending Clinician 2, Adc Lab Attending Clinician Unavailable Radha Pat LMSW Attending Clinician Doctor Unassigned, Zayante Attending Clinician Unavailable Jing Mg Attending Clinician Dominic Landeros MD Attending Clinician Alejandra Nice MD Attending Clinician JING CONN Attending Clinician Unavailable Shaggy Ramirez MD Attending Clinician Dany Perez Attending Clinician Krystina Tejeda MD Attending Clinician KRYSTINA TEJEDA Attending Clinician Unavailable Julia Garcia DO Attending Clinician Michael Sandhu MD Attending Clinician , [facility] Sleep [facility] Bed Attending Clinician Unavailable Only, [facility] Test Attending Clinician Unavailable Leigh Hill PT Attending Clinician Unavailable Pob, [facility] Lab Main Attending Clinician Unavailable Nurse, [facility] Fam Attending Clinician Unavailable Eran Coffman DO Attending Clinician ERAN COFFMAN Attending Clinician Unavailable Nurse, Adc Pob Immunization Attending Clinician Unavailable Tech, [facility] Sleep Lab Attending Clinician Unavailable SHAGGY RAMIREZ Attending Clinician Unavailable ZI HERZOG Attending Clinician Unavailable , [facility] Echo Room 1 - Attending Clinician Unavailable Promise Martinez MD Attending Clinician Lab, Adc Fam Pob I Attending Clinician Unavailable Rosie Spain Attending Clinician [phone] DOMINIC LANDEROS Admitting Clinician Unavailable CINTHYA DUARTE Admitting Clinician Unavailable KRYSTINA TEJEDA Admitting Clinician Unavailable Dominic Landeros MD Admitting Clinician Payers Payer Name Policy Type Policy Number Effective Date Expiration Date Masoud GRIMALDO/[facility] DUAL [id number] 2020 COMP HMO D SNP 00:00:00 MEDICAID OF [place] [id number] 2019 00:00:00 Problems Condition Condition Condition Status Onset Resolution Last Treating Co mments Source Name Details Category Date Date Treatment Clinician Date 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 obstructiv obstructiv 1-22 it y of e sleep e sleep 00:00: [place] apnea apnea [address] [place] [address] Osteopenia Osteopenia Disease Active 2020-05 U nivers 0-29 ity of 00:00: [address] Microscopi Microscopi Disease Active 2020-05 U nivers c c 0-22 ity [facility] [address] [place] [address] Vitamin D Vitamin D Disease Active 2019-05 Uni vers deficiency deficiency 0-25 it y of 00:00: [address] Abnormal Abnormal Disease Active 2019-05 Unive rs EKG EKG 0-21 ity of 00:00: [place] 00 Medical Branch Chronic Chronic Disease Active Univers constipati constipati 4-23 it y of on on 00:00: Medical Branch Urinary Urinary Disease Active 2018-05 [...] on, benign on, benign 00:[place] [facility] Hyperchole Hyperchole Disease Active U nivers sterolemia sterolemia 8- it y of 00:00: Medical Branch Morbid Morbid Disease Active Univers [...] Univ ers INGREDI 4-25 ity of 00:00: [place] Medical Branch Morphine Drug Active Other - See Pt states Univers Intolera comments 4- that ity of nce 00:00: Morphine 00 makes Medical pt's pain Branch worse. Social History Social Habit Start Date Stop Date Quantity Comments Source Gender identity Universit y of [facility] Sexual orientation Univer sity of [facility] History of Social 2023-03-12 2023-03-12 Univers ity of function 00:00:00 00:00:00 [facility] Alcohol intake 2023-03-12 2023-03-12 Current University of 00:00:00 00:00:00 non-drinker of [facility] alcohol Branch (finding) Exposure to 2022-08-29 2022-09-08 Not sure University SARS-CoV-2 (event) 00:00:00 09:06:00 [facility] Tobacco use and 2021-12-15 2021-12-15 Smokeless Universit y of exposure 00:00:00 00:00:00 tobacco non-user [facility] Sex Ass[birth year] Universit y of 00:00:00 00:00:00 [facility] Smoking Status Start Date Stop Date Source Never smoked tobacco [facility] Medications Ordered Filled Start Stop Current Ordering Indication Dosage Frequency Signature Comments Components Source Medication Medication Date Date Medication? Clinician (SIG) Name Name furosemide 2022-05 Yes [id number] 40mg Take 1 U nivers 40 mg 1-10 tablet by ity of tablet 00:00: mouth in [place] [address] the Medical morning. Branch metFORMIN 2022-05 Yes [id number] TAKE 1 U nivers 500 mg 1-10 TABLET BY ity of tablet 00:00: MOUTH IN [place] [address] THE [facility] Branch AND IN THE EVENING WITH MEALS furosemide 2022-05 Yes [id number] 40mg Take 1 U nivers 40 mg 1-10 tablet by ity of tablet 00:00: mouth in [place] [address] the morning. Branch metFORMIN 2022-05 Yes [id number] TAKE 1 U nivers 500 mg 1-10 TABLET BY ity of tablet 00:00: MOUTH IN [place] [address] THE [facility] MORNING Branch AND IN THE EVENING WITH MEALS furosemide 2022-05 Yes [id number] 40mg Take 1 U nivers 40 mg 1-10 tablet by ity of tablet 00:00: mouth in [place] [address] the Medical morning. Branch metFORMIN 2022-05 Yes [id number] TAKE 1 U nivers 500 mg 1-10 TABLET BY ity of tablet 00:00: MOUTH IN [place] [address] THE [facility] Branch AND IN THE EVENING WITH MEALS losartan 50 2022-0 Yes [id number] 50mg Take 1 U nivers mg tablet 9-29 tablet by ity o f 00:00: mouth in [place] [address] the [facility] and 1 tablet in the evening. losartan 50 2022-0 Yes [id number] 50mg Take 1 U nivers mg tablet 9-29 tablet by ity o f 00:00: mouth in [address] and 1 tablet in the evening. losartan 50 2022-0 Yes [id number] 50mg Take 1 U nivers mg tablet 9-29 tablet by ity o f 00:00: mouth in [address] and 1 tablet in the evening. losartan 50 2022-0 Yes [id number] 50mg Take 1 U nivers mg tablet 9-29 tablet by ity o f 00:00: mouth in [place] 00 the Medical morning Branch and 1 tablet in the evening. losartan 50 2022-0 Yes [id number] 50mg Take 1 U nivers mg tablet 9-29 tablet by ity o f 00:00: mouth in [place] 00 the Medical morning Branch and 1 tablet in the evening. losartan 50 2022-0 Yes [id number] 50mg Take 1 U nivers mg tablet 9-29 tablet by ity o f 00:00: mouth in [place] 00 the Medical morning Branch and 1 tablet in the evening. losartan 50 2022-0 Yes [id number] 50mg Take 1 U nivers mg tablet 9-29 tablet by ity o f 00:00: mouth in [place] 00 the Medical morning Branch and 1 tablet in the evening. losartan 50 2022-0 Yes [id number] 50mg Take 1 U nivers mg tablet 9-29 tablet by ity o f 00:00: mouth in [place] 00 the Medical morning Branch and 1 tablet in the evening. losartan 50 2022-0 Yes [id number] 50mg Take 1 U nivers mg tablet 9-29 tablet by ity o f 00:00: mouth in [place] 00 the Medical morning Branch and 1 tablet in the evening. atorvastati 2022-0 Yes [id number] 40mg Take 1 Univers n 40 mg 9-25 104 tablet by ity of tablet 00:00: mouth at [place] [address] bedtime. Medical Branch atorvastati 2022-0 Yes [id number] 40mg Take 1 Univers n 40 mg 9-25 104 tablet by ity of tablet 00:00: mouth at [place] [address] bedtime. Medical Branch atorvastati 2022-0 Yes [id number] 40mg Take 1 Univers n 40 mg 9-25 104 tablet by ity of tablet 00:00: mouth at [place] 00 bedtime. Medical Branch atorvastati 2022-0 Yes [id number] 40mg Take 1 Univers n 40 mg 9-25 104 tablet by ity of tablet 00:00: mouth at [place] 00 bedtime. Medical Branch atorvastati 2022-0 Yes [id number] 40mg Take 1 Univers n 40 mg 9-25 104 tablet by ity of tablet 00:00: mouth at [place] [address] bedtime. Medical Branch atorvastati 2022-0 Yes [id number] 40mg Take 1 Univers n 40 mg 9-25 104 tablet by ity of tablet 00:00: mouth at [place] 00 bedtime. Medical Branch atorvastati 2022-0 Yes [id number] 40mg Take 1 Univers n 40 mg 9-25 104 tablet by ity of tablet 00:00: mouth at [place] 00 bedtime. Medical Branch atorvastati 2022-0 Yes [id number] 40mg Take 1 Univers n 40 mg 9-25 104 tablet by ity of tablet 00:00: mouth at [place] bedtime. Medical Branch atorvastati 2022-0 Yes [id number] 40mg Take 1 Univers n 40 mg 9-25 104 tablet by ity of tablet 00:00: mouth at [place] bedtime. Medical Branch atorvastati 2022-0 Yes [id number] 40mg Take 1 Univers n 40 mg 9-25 104 tablet by ity of tablet 00:00: mouth at [place] bedtime. Medical Branch atorvastati 2022-0 Yes [id number] 40mg Take 1 Univers n 40 mg 9-25 104 tablet by ity of tablet 00:00: mouth at [place] bedtime. Medical Branch atorvastati 2022-0 Yes [id number] 40mg Take 1 Univers n 40 mg 9-25 104 tablet by ity of tablet 00:00: mouth at [place] 00 bedtime. Medical Branch atorvastati 2022-0 Yes [id number] 40mg Take 1 Univers n 40 mg 9-25 104 tablet by ity of tablet 00:00: mouth at [place] 00 bedtime. Medical Branch evolocumab 2022-0 Yes [id number] INJECT 140 Univers (REPATHA 9-18 104 MG UNDER ity of SURECLICK) 00:00: THE SKIN Stephan as 140 mg/mL 00 EVERY 2 Medical PnIj (TWO) Branch WEEKS. evolocumab 3-0 Yes [id number] INJECT 140 Univers (REPATHA 9-18 104 MG UNDER ity of SURECLICK) 00:00: THE SKIN [place] as 140 mg/mL 00 EVERY 2 Medical PnIj (TWO) Branch WEEKS. evolocumab 3-0 Yes [id number] INJECT 140 Univers (REPATHA 9-18 104 MG UNDER ity of SURECLICK) 00:00: THE SKIN [place] as 140 mg/mL 00 EVERY 2 Medical PnIj (TWO) Branch WEEKS. evolocumab 2023-0 Yes [id number] INJECT 140 Univers (REPATHA 9-18 104 MG UNDER ity of SURECLICK) 00:00: THE SKIN [place] as 140 mg/mL 00 EVERY 2 Medical PnIj (TWO) Branch WEEKS. evolocumab 2023-0 Yes [id number] INJECT 140 Univers (REPATHA 9-18 104 MG UNDER ity of SURECLICK) 00:00: THE SKIN [place] as 140 mg/mL 00 EVERY 2 Medical PnIj (TWO) Branch WEEKS. evolocumab 2023-0 Yes [id number] INJECT 140 Univers (REPATHA 9-18 104 MG UNDER ity of SURECLICK) 00:00: THE SKIN [place] as 140 mg/mL 00 EVERY 2 Medical PnIj (TWO) Branch WEEKS. evolocumab 2023-0 Yes [id number] INJECT 140 Univers (REPATHA 9-18 104 MG UNDER ity of SURECLICK) 00:00: THE SKIN [place] as 140 mg/mL 00 EVERY 2 Medical PnIj (TWO) Branch WEEKS. evolocumab 2023-0 Yes [id number] INJECT 140 Univers (REPATHA 9-18 104 MG UNDER ity of SURECLICK) 00:00: THE SKIN [place] as 140 mg/mL 00 EVERY 2 Medical PnIj (TWO) Branch WEEKS. evolocumab 2023-0 Yes [id number] INJECT 140 Univers (REPATHA 9-18 104 MG UNDER ity of SURECLICK) 00:00: THE SKIN [place] as 140 mg/mL 00 EVERY 2 Medical PnIj (TWO) Branch WEEKS. evolocumab 2023-0 Yes [id number] INJECT 140 Univers (REPATHA 9-18 104 MG UNDER ity of SURECLICK) 00:00: THE SKIN [place] as 140 mg/mL 00 EVERY 2 Medical PnIj (TWO) Branch WEEKS. evolocumab 2023-0 Yes [id number] INJECT 140 Univers (REPATHA 9-18 104 MG UNDER ity of SURECLICK) 00:00: THE SKIN [place] as 140 mg/mL 00 EVERY 2 Medical PnIj (TWO) Branch WEEKS. evolocumab 2023-0 Yes [id number] INJECT 140 Univers (REPATHA 9-18 104 MG UNDER ity of SURECLICK) 00:00: THE SKIN [place] as 140 mg/mL 00 EVERY 2 Medical PnIj (TWO) Branch WEEKS. evolocumab 2023-0 Yes [id number] INJECT 140 Univers (REPATHA 9-18 104 MG UNDER ity of SURECLICK) 00:00: THE SKIN [place] as 140 mg/mL 00 EVERY 2 Medical PnIj (TWO) Branch WEEKS. evolocumab 2023-0 Yes [id number] INJECT 140 Univers (REPATHA 9-18 104 MG UNDER ity of SURECLICK) 00:00: THE SKIN [place] as 140 mg/mL 00 EVERY 2 Medical PnIj (TWO) Branch WEEKS. furosemide 2023-0 Yes [id number] 40mg Take 1 U nivers 40 mg 9-08 tablet by ity of tablet 00:00: mouth 2 (two) Medical times Branch daily as needed. furosemide 2023-0 Yes [id number] 40mg Take 1 U nivers 40 mg 9-08 tablet by ity of tablet 00:00: mouth (two) Medical times Branch daily as needed. furosemide 2023-0 Yes [id number] 40mg Take 1 U nivers 40 mg 9-08 tablet by ity of tablet 00:00: mouth (two) Medical times Branch daily as needed. furosemide 2023-0 Yes [id number] 40mg Take 1 U nivers 40 mg 9-08 tablet by ity of tablet 00:00: mouth (two) Medical times Branch daily as needed. furosemide 2023-0 Yes [id number] 40mg Take 1 U nivers 40 mg 9-08 tablet by ity of tablet 00:00: mouth (two) Medical times Branch daily as needed. furosemide 2023-0 Yes [id number] 40mg Take 1 U nivers 40 mg 9-08 tablet by ity of tablet 00:00: mouth 2 (two) Medical times Branch daily as needed. furosemide 2023-0 Yes [id number] 40mg Take 1 U nivers 40 mg 9-08 tablet by ity of tablet 00:00: mouth 2 (two) Medical times Branch daily as needed. furosemide 2023-0 Yes [id number] 40mg Take 1 U nivers 40 mg 9-08 tablet by ity of tablet 00:00: mouth 2 (two) Medical times Branch daily as needed. furosemide 2023-0 Yes [id number] 40mg Take 1 U nivers 40 mg 9-08 tablet by ity of tablet 00:00: mouth 2 [place] 00 (two) Medical times Branch daily as needed. furosemide 2023-0 Yes [id number] 40mg Take 1 U nivers 40 mg 9-08 tablet by ity of tablet 00:00: mouth 2 [place] 00 (two) Medical times Branch daily as needed. furosemide 2023-0 Yes [id number] 40mg Take 1 U nivers 40 mg 9-08 tablet by ity of tablet 00:00: mouth 2 [place] 00 (two) Medical times Branch daily as needed. furosemide 2023-0 Yes [id number] 40mg Take 1 U nivers 40 mg 9-08 tablet by ity of tablet 00:00: mouth 2 [place] 00 (two) Medical times Branch daily as needed. furosemide 2023-0 Yes [id number] 40mg Take 1 U nivers 40 mg 9-08 tablet by ity of tablet 00:00: mouth 2 [place] (two) Medical times Branch daily as needed. furosemide 2023-0 Yes [id number] 40mg Take 1 U nivers 40 mg 9-08 tablet by ity of tablet 00:00: mouth 2 [place] (two) Medical times Branch daily as needed. furosemide 2023-0 2023- No [id number] 40mg Take 1 Univers 40 mg 9-08 11-10 tablet by ity of tablet 00:00: 00:00 mouth 2 [place] 00 :00 (two) Medical times Branch daily as needed. furosemide 2023-0 2023- No [id number] 40mg Take 1 Univers 40 mg 9-08 11-10 tablet by ity of tablet 00:00: 00:00 mouth 2 [place] 00 :00 (two) Medical times Branch daily as needed. furosemide 2023-0 Yes [id number] 40mg Take 1 U nivers 40 mg 8-25 tablet by ity of tablet 00:00: mouth 3 [place] 00 (three) Medical times Branch daily as needed (swelling) . furosemide 2023-0 Yes [id number] 40mg Take 1 U nivers 40 mg 8-25 tablet by ity of tablet 00:00: mouth 3 [place] 00 (three) Medical times Branch daily as needed (swelling) . furosemide 2023-0 Yes [id number] 40mg Take 1 U nivers 40 mg 8-25 tablet by ity of tablet 00:00: mouth 3 [place] 00 (three) Medical times Branch daily as needed (swelling) . furosemide 2023-0 Yes [id number] 40mg Take 1 U nivers 40 mg 8-25 tablet by ity of tablet 00:00: mouth 3 [place] 00 (three) Medical times Branch daily as needed (swelling) . furosemide 2023-0 Yes [id number] 40mg Take 1 U nivers 40 mg 8-25 tablet by ity of tablet 00:00: mouth 3 [place] 00 (three) Medical times Branch daily as needed (swelling) . furosemide 2023-0 Yes [id number] 40mg Take 1 U nivers 40 mg 8-25 tablet by ity of tablet 00:00: mouth 3 [place] 00 (three) Medical times Branch daily as needed (swelling) . furosemide 2023-0 2023- No [id number] 40mg Take 1 Univers 40 mg 8-25 09-08 tablet by ity of tablet 00:00: 00:00 mouth 3 [place] 00 :00 (three) Medical times Branch daily as needed (swelling) . furosemide 2023-0 2023- No [id number] 40mg Take 1 Univers 40 mg 8-25 09-08 tablet by ity of tablet 00:00: 00:00 mouth 3 [place] 00 :00 (three) Medical times Branch daily as needed (swelling) . metFORMIN 2023-0 Yes [id number] TAKE 1 U nivers 500 mg 8-24 TABLET BY ity of tablet 00:00: MOUTH IN [place] [address] THE Medical MORNING Branch AND IN THE EVENING WITH MEALS metFORMIN 2023-0 Yes [id number] TAKE 1 U nivers 500 mg 8-24 TABLET BY ity of tablet 00:00: MOUTH IN [place] THE Medical MORNING Branch AND IN THE EVENING WITH MEALS metFORMIN 2023-0 Yes [id number] TAKE 1 U nivers 500 mg 8-24 TABLET BY ity of tablet 00:00: MOUTH IN [place] [address] THE Medical MORNING Branch AND IN THE EVENING WITH MEALS metFORMIN 2023-0 Yes [id number] TAKE 1 U nivers 500 mg 8-24 TABLET BY ity of tablet 00:00: MOUTH IN [place] [address] THE Medical MORNING Branch AND IN THE EVENING WITH MEALS metFORMIN 2023-0 Yes [id number] TAKE 1 U nivers 500 mg 8-24 TABLET BY ity of tablet 00:00: MOUTH IN [place] [address] THE Medical MORNING Branch AND IN THE EVENING WITH MEALS metFORMIN 2023-0 Yes [id number] TAKE 1 U nivers 500 mg 8-24 TABLET BY ity of tablet 00:00: MOUTH IN [place] 00 THE Medical MORNING Branch AND IN THE EVENING WITH MEALS metFORMIN 2023-0 Yes [id number] TAKE 1 U nivers 500 mg 8-24 TABLET BY ity of tablet 00:00: MOUTH IN [place] 00 THE Medical MORNING Branch AND IN THE EVENING WITH MEALS metFORMIN 2023-0 Yes [id number] TAKE 1 U nivers 500 mg 8-24 TABLET BY ity of tablet 00:00: MOUTH IN [place] 00 THE Medical MORNING Branch AND IN THE EVENING WITH MEALS metFORMIN 2023-0 Yes [id number] TAKE 1 U nivers 500 mg 8-24 TABLET BY ity of tablet 00:00: MOUTH IN [place] 00 THE Medical MORNING Branch AND IN THE EVENING WITH MEALS metFORMIN 2023-0 Yes [id number] TAKE 1 U nivers 500 mg 8-24 TABLET BY ity of tablet 00:00: MOUTH IN [place] 00 THE Medical MORNING Branch AND IN THE EVENING WITH MEALS metFORMIN 2023-0 Yes [id number] TAKE 1 U nivers 500 mg 8-24 TABLET BY ity of tablet 00:00: MOUTH IN [place] 00 THE Medical MORNING Branch AND IN THE EVENING WITH MEALS metFORMIN 2023-0 Yes [id number] TAKE 1 U nivers 500 mg 8-24 TABLET BY ity of tablet 00:00: MOUTH IN [place] 00 THE Medical MORNING Branch AND IN THE EVENING WITH MEALS metFORMIN 2023-0 Yes [id number] TAKE 1 U nivers 500 mg 8-24 TABLET BY ity of tablet 00:00: MOUTH IN [place] 00 THE Medical MORNING Branch AND IN THE EVENING WITH MEALS metFORMIN 2023-0 Yes [id number] TAKE 1 U nivers 500 mg 8-24 TABLET BY ity of tablet 00:00: MOUTH IN [place] 00 THE Medical MORNING Branch AND IN THE EVENING WITH MEALS metFORMIN 2023-0 Yes [id number] TAKE 1 U nivers 500 mg 8-24 TABLET BY ity of tablet 00:00: MOUTH IN [place] 00 THE Medical MORNING Branch AND IN THE EVENING WITH MEALS metFORMIN 2023-0 Yes [id number] TAKE 1 U nivers 500 mg 8-24 TABLET BY ity of tablet 00:00: MOUTH IN [place] [address] THE Medical MORNING Branch AND IN THE EVENING WITH MEALS metFORMIN 2023-0 Yes [id number] TAKE 1 U nivers 500 mg 8-24 TABLET BY ity of tablet 00:00: MOUTH IN [place] [address] THE Medical MORNING Branch AND IN THE EVENING WITH MEALS metFORMIN 2023-0 Yes [id number] TAKE 1 U nivers 500 mg 8-24 TABLET BY ity of tablet 00:00: MOUTH IN [place] 00 THE Medical MORNING Branch AND IN THE EVENING WITH MEALS metFORMIN 2023-0 Yes [id number] TAKE 1 U nivers 500 mg 8-24 TABLET BY ity of tablet 00:00: MOUTH IN [place] 00 THE Medical MORNING Branch AND IN THE EVENING WITH MEALS metFORMIN 2023-0 Yes [id number] TAKE 1 U nivers 500 mg 8-24 TABLET BY ity of tablet 00:00: MOUTH IN [place] 00 THE Medical MORNING Branch AND IN THE EVENING WITH MEALS metFORMIN 2023-0 Yes [id number] TAKE 1 U nivers 500 mg 8-24 TABLET BY ity of tablet 00:00: MOUTH IN [place] 00 THE Medical MORNING Branch AND IN THE EVENING WITH MEALS metFORMIN 2023-0 Yes [id number] TAKE 1 U nivers 500 mg 8-24 TABLET BY ity of tablet 00:00: MOUTH IN [place] 00 THE Medical MORNING Branch AND IN THE EVENING WITH MEALS metFORMIN 2023-0 Yes [id number] TAKE 1 U nivers 500 mg 8-24 TABLET BY ity of tablet 00:00: MOUTH IN [place] 00 THE Medical MORNING Branch AND IN THE EVENING WITH MEALS metFORMIN 2023-0 2023- No [id number] TAKE 1 Univers 500 mg 8-24 11-10 TABLET BY ity of tablet 00:00: 00:00 MOUTH IN [place] 00 :00 THE Medical MORNING Branch AND IN THE EVENING WITH MEALS metFORMIN 2023-0 2023- No [id number] TAKE 1 Univers 500 mg 8-24 11-10 TABLET BY ity of tablet 00:00: 00:00 MOUTH IN [place] 00 :00 THE Medical MORNING Branch AND IN THE EVENING WITH MEALS carvediloL 2023-0 Yes [id number] 3.125mg Take 1 Univers 3.125 mg 8-16 tablet by ity of tablet 00:00: mouth in [place] 00 the Medical morning Branch and 1 tablet in the evening. Take with meals. carvediloL 2023-0 Yes [id number] 3.125mg Take 1 Univers 3.125 mg 8-16 tablet by ity of tablet 00:00: mouth in [place] 00 the Medical morning Branch and 1 tablet in the evening. Take with meals. carvediloL 2023-0 Yes [id number] 3.125mg Take 1 Univers 3.125 mg 8-16 tablet by ity of tablet 00:00: mouth in [place] [address] the Medical morning [place] and 1 tablet in the evening. Take with meals. carvediloL 2023-0 Yes [id number] 3.125mg Take 1 Univers 3.125 mg 8-16 tablet by ity of tablet 00:00: mouth in [place] [address] the [facility] morning [place] and 1 tablet in the evening. Take with meals. carvediloL 2023-0 Yes [id number] 3.125mg Take 1 Univers 3.125 mg 8-16 tablet by ity of tablet 00:00: mouth in [address] morning [place] and 1 tablet in the evening. Take with meals. carvediloL 2023-0 Yes [id number] 3.125mg Take 1 Univers 3.125 mg 8-16 tablet by ity of tablet 00:00: mouth in [address] morning [place] and 1 tablet in the evening. Take with meals. carvediloL 2023-0 Yes [id number] 3.125mg Take 1 Univers 3.125 mg 8-16 tablet by ity of tablet 00:00: mouth in [address] morning [place] and 1 tablet in the evening. Take with meals. carvediloL 2023-0 Yes [id number] 3.125mg Take 1 Univers 3.125 mg 8-16 tablet by ity of tablet 00:00: mouth in [address] morning [place] and 1 tablet in the evening. Take with meals. carvediloL 2023-0 Yes [id number] 3.125mg Take 1 Univers 3.125 mg 8-16 tablet by ity of tablet 00:00: mouth in [address] morning [place] and 1 tablet in the evening. Take with meals. carvediloL 2023-0 Yes [id number] 3.125mg Take 1 Univers 3.125 mg 8-16 tablet by ity of tablet 00:00: mouth in [address] morning [place] and 1 tablet in the evening. Take with meals. carvediloL 2023-0 Yes [id number] 3.125mg Take 1 Univers 3.125 mg 8-16 tablet by ity of tablet 00:00: mouth in [address] morning [place] and 1 tablet in the evening. Take with meals. carvediloL 2023-0 Yes [id number] 3.125mg Take 1 Univers 3.125 mg 8-16 tablet by ity of tablet 00:00: mouth in [address] morning [place] and 1 tablet in the evening. Take with meals. carvediloL 2023-0 Yes [id number] 3.125mg Take 1 Univers 3.125 mg 8-16 tablet by ity of tablet 00:00: mouth in [address] morning [place] and 1 tablet in the evening. Take with meals. carvediloL 2023-0 Yes [id number] 3.125mg Take 1 Univers 3.125 mg 8-16 tablet by ity of tablet 00:00: mouth in [address] morning [place] and 1 tablet in the evening. Take with meals. carvediloL 2023-0 Yes [id number] 3.125mg Take 1 Univers 3.125 mg 8-16 tablet by ity of tablet 00:00: mouth in [address] morning [place] and 1 tablet in the evening. Take with meals. carvediloL 2023-0 Yes [id number] 3.125mg Take 1 Univers 3.125 mg 8-16 tablet by ity of tablet 00:00: mouth in [address] and 1 tablet in the evening. Take with meals. carvediloL 2023-0 Yes [id number] 3.125mg Take 1 Univers 3.125 mg 8-16 tablet by ity of tablet 00:00: mouth in [address] and 1 tablet in the evening. Take with meals. carvediloL 2023-0 Yes [id number] 3.125mg Take 1 Univers 3.125 mg 8-16 tablet by ity of tablet 00:00: mouth in [address] and 1 tablet in the evening. Take with meals. carvediloL 2023-0 Yes [id number] 3.125mg Take 1 Univers 3.125 mg 8-16 tablet by ity of tablet 00:00: mouth in [address] and 1 tablet in the evening. Take with meals. carvediloL 2023-0 Yes [id number] 3.125mg Take 1 Univers 3.125 mg 8-16 tablet by ity of tablet 00:00: mouth in [address] morning [place] and 1 tablet in the evening. Take with meals. carvediloL 2023-0 Yes [id number] 3.125mg Take 1 Univers 3.125 mg 8-16 tablet by ity of tablet 00:00: mouth in [address] morning [place] and 1 tablet in the evening. Take with meals. carvediloL 2023-0 Yes [id number] 3.125mg Take 1 [facility] 3.125 mg 8-16 tablet by [facility] of tablet 00:00: mouth in [address] morning [place] and 1 tablet in the evening. Take with meals. carvediloL 2023-0 Yes [id number] 3.125mg Take 1 [facility] 3.125 mg 8-16 tablet by [facility] of tablet 00:00: mouth in [address] and 1 tablet in the evening. Take with meals. carvediloL 2023-0 Yes [id number] 3.125mg Take 1 [facility] 3.125 mg 8-16 tablet by ity of tablet 00:00: mouth in [address] morning [place] and 1 tablet in the evening. Take with meals. carvediloL 2023-0 Yes [id number] 3.125mg Take 1 [facility] 3.125 mg 8-16 tablet by [facility] of tablet 00:00: mouth in [address] and 1 tablet in the evening. Take with meals. carvediloL 2023-0 Yes [id number] 3.125mg Take 1 [facility] 3.125 mg 8-16 tablet by it[facility] of tablet 00:00: mouth in [address] and 1 tablet in the evening. Take with meals. carvediloL 2023-0 Yes [id number] 3.125mg Take 1 [facility] 3.125 mg 8-16 tablet by ity of tablet 00:00: mouth in [address] and 1 tablet in the evening. Take with meals. carvediloL 2023-0 Yes [id number] 3.125mg Take 1 [facility] 3.125 mg 8-16 tablet by it[facility] of tablet 00:00: mouth in [address] and 1 tablet in the evening. Take with meals. carvediloL 2023-0 Yes [id number] 3.125mg Take 1 [facility] 3.125 mg 8-16 tablet by ity of tablet 00:00: mouth in [address] morning [place] and 1 tablet in the evening. Take with meals. carvediloL 2023-0 Yes [id number] 3.125mg Take 1 [facility] 3.125 mg 8-16 tablet by ity of tablet 00:00: mouth in [place] [address] the Medical morning Branch and 1 tablet in the evening. Take with meals. carvediloL 2023-0 Yes [id number] 3.125mg Take 1 [facility] 3.125 mg 8-16 tablet by ity of tablet 00:00: mouth in [place] 00 the Medical morning Branch and 1 tablet in the evening. Take with meals. carvediloL 2023-0 Yes [id number] 3.125mg Take 1 [facility] 3.125 mg 8-16 tablet by ity of tablet 00:00: mouth in [place] [address] the Medical morning Branch and 1 tablet in the evening. Take with meals. furosemide 2023-0 Yes [id number] 20mg Take 1 [facility] (LASIX) 20 8-03 tablet by ity of mg tablet 00:00: mouth ([facility]) Medical times Branch daily as needed (Swelling) . furosemide 2023-0 Yes [id number] 20mg Take 1 [facility] (LASIX) 20 8-03 tablet by ity of mg tablet 00:00: mouth (two) Medical times Branch daily as needed (Swelling) . furosemide 2023-0 Yes [id number] 20mg Take 1 [facility] (LASIX) 20 8-03 tablet by ity of mg tablet 00:00: mouth (two) Medical times Branch daily as needed (Swelling) . furosemide 2023-0 Yes [id number] 20mg Take 1 [facility] (LASIX) 20 8-03 tablet by it[facility] of mg tablet 00:00: mouth (two) Medical times Branch daily as needed (Swelling) . furosemide 2023-0 Yes [id number] 20mg Take 1 [facility] (LASIX) 20 8-03 tablet by it[facility] of mg tablet 00:00: mouth (two) Medical times Branch daily as needed (Swelling) . furosemide 2023-0 Yes [id number] 20mg Take 1 [facility] (LASIX) 20 8-03 tablet by ity of mg tablet 00:00: mouth (two) Medical times Branch daily as needed (Swelling) . furosemide 2023-0 Yes [id number] 20mg Take 1 [facility] (LASIX) 20 8-03 tablet by it[facility] of mg tablet 00:00: mouth (two) Medical times Branch daily as needed (Swelling) . furosemide 2023-0 Yes [id number] 20mg Take 1 [facility] (LASIX) 20 8-03 tablet by ity of mg tablet 00:00: mouth (two) Medical times Branch daily as needed (Swelling) . furosemide 2023-0 Yes [id number] 20mg Take 1 [facility] (LASIX) 20 8-03 tablet by ity of mg tablet 00:00: mouth 2 (two) Medical times Branch daily as needed (Swelling) . furosemide 2023-0 Yes [id number] 20mg Take 1 [facility] (LASIX) 20 8-03 tablet by it[facility] of mg tablet 00:00: mouth (two) Medical times Branch daily as needed (Swelling) . furosemide 2023-0 Yes [id number] 20mg Take 1 [facility] (LASIX) 20 8-03 tablet by ity of mg tablet 00:00: mouth (two) Medical times Branch daily as needed (Swelling) . furosemide 2023-0 Yes [id number] 20mg Take 1 [facility] (LASIX) 20 8-03 tablet by ity of mg tablet 00:00: mouth (two) Medical times Branch daily as needed (Swelling) . furosemide 2023-0 Yes [id number] 20mg Take 1 [facility] (LASIX) 20 8-03 tablet by ity of mg tablet 00:00: mouth (two) Medical times Branch daily as needed (Swelling) . furosemide 2023-0 Yes [id number] 20mg Take 1 [facility] (LASIX) 20 8-03 tablet by ity of mg tablet 00:00: mouth (two) Medical times Branch daily as needed (Swelling) . furosemide 2023-0 Yes [id number] 20mg Take 1 [facility] (LASIX) 20 8-03 tablet by ity of mg tablet 00:00: mouth (two) Medical times Branch daily as needed (Swelling) . furosemide 2023-0 Yes [id number] 20mg Take 1 [facility] nivers (LASIX) 20 8-03 tablet by ity of mg tablet 00:00: mouth 2 (two) Medical times Branch daily as needed (Swelling) . furosemide 2023-0 Yes [id number] 20mg Take 1 [facility] (LASIX) 20 8-03 tablet by ity of mg tablet 00:00: mouth 2 (two) Medical times Branch daily as needed (Swelling) . furosemide 2023-0 Yes [id number] 20mg Take 1 [facility] (LASIX) 20 8-03 tablet by ity of mg tablet 00:00: mouth 2 (two) Medical times Branch daily as needed (Swelling) . furosemide 2023-0 Yes [id number] 20mg Take 1 [facility] (LASIX) 20 8-03 tablet by ity of mg tablet 00:00: mouth 2 (two) Medical times Branch daily as needed (Swelling) . furosemide 2023-0 Yes [id number] 20mg Take 1 [facility] (LASIX) 20 8-03 tablet by it[facility] of mg tablet 00:00: mouth (two) Medical times Branch daily as needed (Swelling) . furosemide 2023-0 Yes [id number] 20mg Take 1 [facility] (LASIX) 20 8-03 tablet by it[facility] of mg tablet 00:00: mouth (two) Medical times Branch daily as needed (Swelling) . furosemide 2023-0 Yes [id number] 20mg Take 1 [facility] (LASIX) 20 8-03 tablet by ity of mg tablet 00:00: mouth (two) Medical times Branch daily as needed (Swelling) . furosemide 2023-0 Yes [id number] 20mg Take 1 [facility] (LASIX) 20 8-03 tablet by ity of mg tablet 00:00: mouth (two) Medical times Branch daily as needed (Swelling) . furosemide 2023-0 Yes [id number] 20mg Take 1 [facility] (LASIX) 20 8-03 tablet by ity of mg tablet 00:00: mouth 2 (two) Medical times Branch daily as needed (Swelling) . furosemide 2023-0 2023- No [id number] 20mg Take 1 [facility] (LASIX) 20 8-03 09-08 tablet by it[facility] mg tablet 00:00: 00:[place] mouth [place]two) Medical times Branch daily as needed (Swelling) . furosemide 2023-0 2023- No [id number] 20mg Take 1 [facility] (LASIX) 20 8-03 09-08 tablet by it[facility] of mg tablet 00:00: 00:[place] mouth [place] :[place] (two) Medical times Branch daily as needed (Swelling) . losartan 50 2022-0 Yes [id number] 50mg Take 1 [facility] mg tablet 7-26 tablet by ity o f 00:00: mouth in [place] 00 the Medical morning Branch and 1 tablet in the evening. losartan 50 2022-0 Yes [id number] 50mg Take 1 [facility] mg tablet 7-26 tablet by ity o f 00:00: mouth in [place] 00 the Medical morning Branch and 1 tablet in the evening. losartan 50 2022-0 Yes [id number] 50mg Take 1 [facility] mg tablet 7-26 tablet by ity o f 00:00: mouth in [place] 00 the Medical morning Branch and 1 tablet in the evening. losartan 50 2022-0 Yes [id number] 50mg Take 1 [facility] mg tablet 7-26 tablet by ity o f 00:00: mouth in [place] 00 the Medical morning Branch and 1 tablet in the evening. atorvastati 2022-0 Yes [id number] 40mg Take 1 [facility] n 40 mg 7-26 104 tablet by ity of tablet 00:00: mouth at [place] 00 bedtime. Medical Branch evolocumab 2022-0 Yes [id number] Inject 1 [facility] (REPATHA 7-26 104 ml ity of SURECLICK) 00:00: [place]cutaneo [place] 140 mg/mL 00 usly q 2 [facility] l PnIj weeks Branch losartan 50 2022-0 Yes [id number] 50mg Take 1 [facility] mg tablet 7-26 tablet by ity o f 00:00: mouth in [place] 00 the Medical morning Branch and 1 tablet in the evening. atorvastati 2022-0 Yes [id number] 40mg Take 1 [facility] n 40 mg 7-26 104 tablet by ity of tablet 00:00: mouth at [place] 00 bedtime. Medical Branch evolocumab 2022-0 Yes [id number] Inject 1 [facility] (REPATHA 7-26 104 ml ity of SURECLICK) 00:00: [place]cutaneo [place] 140 mg/mL 00 usly q 2 Med[facility] l PnIj weeks Branch losartan 50 2022-0 Yes [id number] 50mg Take 1 [facility] mg tablet 7-26 tablet by ity o f 00:00: mouth in [place] 00 the Medical morning Branch and 1 tablet in the evening. atorvastati 2022-0 Yes [id number] 40mg Take 1 [facility] n 40 mg 7-26 104 tablet by ity of tablet 00:00: mouth at [place] 00 bedtime. Medical Branch evolocumab 2022-0 Yes [id number] Inject 1 [facility] (REPATHA 7-26 104 ml ity of SURECLICK) 00:00: [place]cutaneo [place] 140 mg/mL 00 usly q 2 Med[facility] l PnIj weeks Branch losartan 50 2022-0 Yes [id number] 50mg Take 1 [facility] mg tablet 7-26 tablet by ity o f 00:00: mouth in [place] 00 the Medical morning Branch and 1 tablet in the evening. atorvastati 2022-0 Yes [id number] 40mg Take 1 [facility] n 40 mg 7-26 104 tablet by ity of tablet 00:00: mouth at [place] 00 bedtime. Medical Branch evolocumab 0 Yes [id number] Inject 1 [facility] (REPATHA 7-26 104 ml ity of SURECLICK) 00:00: subcutaneo [place] 140 mg/mL 00 usly q 2 Med[facility] l PnIj weeks Branch losartan 50 2022-0 Yes [id number] 50mg Take 1 [facility] mg tablet 7-26 tablet by ity o f 00:00: mouth in [place] 00 the Medical morning Branch and 1 tablet in the evening. atorvastati 2022-0 Yes [id number] 40mg Take 1 [facility] n 40 mg 7-26 104 tablet by ity of tablet 00:00: mouth at [place] 00 bedtime. Medical Branch evolocumab 2022-0 Yes [id number] Inject 1 [facility] (REPATHA 7-26 104 ml ity of SURECLICK) 00:00: subcutaneo [place] 140 mg/mL 00 usly q 2 Medica l PnIj weeks Branch losartan 50 2022-0 Yes [id number] 50mg Take 1 [facility] mg tablet 7-26 tablet by ity o f 00:00: mouth in [place] 00 the Medical morning Branch and 1 tablet in the evening. atorvastati 2022-0 Yes [id number] 40mg Take 1 [facility] n 40 mg 7-26 104 tablet by ity of tablet 00:00: mouth at [place] 00 bedtime. Medical Branch evolocumab 0 Yes [id number] Inject 1 [facility] (REPATHA 7-26 104 ml ity of SURECLICK) 00:00: subcutaneo [place] 140 mg/mL 00 usly q 2 Medica l PnIj weeks Branch losartan 50 2022-0 Yes [id number] 50mg Take 1 [facility] mg tablet 7-26 tablet by ity o f 00:00: mouth in [place] 00 the Medical morning Branch and 1 tablet in the evening. atorvastati 2022-0 Yes [id number] 40mg Take 1 [facility] n 40 mg 7-26 104 tablet by ity of tablet 00:00: mouth at [place] 00 bedtime. Medical Branch evolocumab 0 Yes [id number] Inject 1 [facility] (REPATHA 7-26 104 ml ity of SURECLICK) 00:00: subcutaneo [place] 140 mg/mL 00 usly q 2 Medica l PnIj weeks Branch losartan 50 2022-0 Yes [id number] 50mg Take 1 [facility] mg tablet 7-26 tablet by ity o f 00:00: mouth in [place] 00 the Medical morning Branch and 1 tablet in the evening. atorvastati 0 Yes [id number] 40mg Take 1 [facility] n 40 mg 7-26 104 tablet by ity of tablet 00:00: mouth at [place] [address] bedtime. Medical Branch evolocumab 0 Yes [id number] Inject 1 [facility] (REPATHA 7-26 104 ml ity of SURECLICK) 00:00: subcutaneo [place] 140 mg/mL 00 usly q 2 Medica l PnIj weeks Branch losartan 50 2022-0 Yes [id number] 50mg Take 1 [facility] mg tablet 7-26 tablet by ity o f 00:00: mouth in [place] 00 the Medical morning Branch and 1 tablet in the evening. atorvastati 2022-0 Yes [id number] 40mg Take 1 [facility] n 40 mg 7-26 104 tablet by ity of tablet 00:00: mouth at [place] 00 bedtime. Medical Branch evolocumab 2022-0 Yes [id number] Inject 1 [facility] (REPATHA 7-26 104 ml ity of SURECLICK) 00:00: subcut[place]o [place] 140 mg/mL 00 usly q 2 Medica l PnIj weeks Branch losartan 50 2022-0 Yes [id number] 50mg Take 1 [facility] mg tablet 7-26 tablet by ity o f 00:00: mouth in [place] 00 the Medical morning Branch and 1 tablet in the evening. atorvastati 2022-0 Yes [id number] 40mg Take 1 [facility] n 40 mg 7-26 104 tablet by ity of tablet 00:00: mouth at [place] 00 bedtime. Medical Branch evolocumab 2022-0 Yes [id number] Inject 1 [facility] (REPATHA 7-26 104 ml ity of SURECLICK) 00:00: subcut[place]o [place] 140 mg/mL 00 usly q 2 Medica l PnIj weeks Branch losartan 50 2022-0 Yes [id number] 50mg Take 1 [facility] mg tablet 7-26 tablet by ity o f 00:00: mouth in [place] 00 the Medical morning Branch and 1 tablet in the evening. atorvastati 2022-0 Yes [id number] 40mg Take 1 [facility] n 40 mg 7-26 104 tablet by ity of tablet 00:00: mouth at [place] 00 bedtime. Medical Branch evolocumab 0 Yes [id number] Inject 1 [facility] (REPATHA 7-26 104 ml ity of SURECLICK) 00:00: subcutaneo [place] 140 mg/mL 00 usly q 2 Medica l PnIj weeks Branch losartan 50 2022-0 Yes [id number] 50mg Take 1 [facility] mg tablet 7-26 tablet by ity o f 00:00: mouth in [place] 00 the Medical morning Branch and 1 tablet in the evening. atorvastati 2022-0 Yes [id number] 40mg Take 1 [facility] n 40 mg 7-26 104 tablet by ity of tablet 00:00: mouth at [place] 00 bedtime. Medical Branch evolocumab 2022-0 Yes [id number] Inject 1 [facility] (REPATHA 7-26 104 ml ity of SURECLICK) 00:00: subcut[place]o [place] 140 mg/mL 00 usly q 2 Medica l PnIj weeks Branch losartan 50 2022-0 Yes [id number] 50mg Take 1 [facility] mg tablet 7-26 tablet by ity o f 00:00: mouth in [place] 00 the Medical morning Branch and 1 tablet in the evening. atorvastati 2022-0 Yes [id number] 40mg Take 1 [facility] n 40 mg 7-26 104 tablet by ity of tablet 00:00: mouth at [place] 00 bedtime. Medical Branch evolocumab 2022-0 Yes [id number] Inject 1 [facility] (REPATHA 7-26 104 ml ity of SURECLICK) 00:00: subcut[place]o [place] 140 mg/mL 00 usly q 2 Medica l PnIj weeks Branch losartan 50 2022-0 Yes [id number] 50mg Take 1 [facility] mg tablet 7-26 tablet by ity o f 00:00: mouth in [place] 00 the Medical morning Branch and 1 tablet in the evening. atorvastati 2022-0 Yes [id number] 40mg Take 1 [facility] n 40 mg 7-26 104 tablet by ity of tablet 00:00: mouth at [place] 00 bedtime. Medical Branch evolocumab 0 Yes [id number] Inject 1 [facility] (REPATHA 7-26 104 ml ity of SURECLICK) 00:00: subcut[place] 140 mg/mL 00 usly q 2 Medica l PnIj weeks Branch losartan 50 2022-0 Yes [id number] 50mg Take 1 [facility] mg tablet 7-26 tablet by ity o f 00:00: mouth in [place] 00 the Medical morning Branch and 1 tablet in the evening. atorvastati 2022-0 Yes [id number] 40mg Take 1 [facility] n 40 mg 7-26 104 tablet by ity of tablet 00:00: mouth at [place] 00 bedtime. Medical Branch evolocumab 2022-0 Yes [id number] Inject 1 [facility] (REPATHA 7-26 104 ml ity of SURECLICK) 00:00: subcutaneo [place] 140 mg/mL 00 usly q 2 Medica l PnIj weeks Branch losartan 50 2022-0 Yes [id number] 50mg Take 1 [facility] mg tablet 7-26 tablet by ity o f 00:00: mouth in [place] 00 the Medical morning Branch and 1 tablet in the evening. atorvastati 2022-0 Yes [id number] 40mg Take 1 [facility] n 40 mg 7-26 104 tablet by ity of tablet 00:00: mouth at [place] 00 bedtime. Medical Branch evolocumab 2022-0 Yes [id number] Inject 1 [facility] (REPATHA 7-26 104 ml ity of SURECLICK) 00:00: subcutaneo [place] 140 mg/mL 00 usly q 2 Medica l PnIj weeks Branch losartan 50 2022-0 Yes [id number] 50mg Take 1 [facility] mg tablet 7-26 tablet by ity o f 00:00: mouth in [place] 00 the Medical morning Branch and 1 tablet in the evening. atorvastati 2022-0 Yes [id number] 40mg Take 1 [facility] n 40 mg 7-26 104 tablet by ity of tablet 00:00: mouth at [place] 00 bedtime. Medical Branch evolocumab 0 Yes [id number] Inject 1 [facility] (REPATHA 7-26 104 ml ity of SURECLICK) 00:00: subcutaneo [place] 140 mg/mL 00 usly q 2 Medica l PnIj weeks Branch losartan 50 2022-0 Yes [id number] 50mg Take 1 [facility] mg tablet 7-26 tablet by ity o f 00:00: mouth in [place] 00 the Medical morning Branch and 1 tablet in the evening. atorvastati 2022-0 Yes [id number] 40mg Take 1 [facility] n 40 mg 7-26 104 tablet by ity of tablet 00:00: mouth at [place] 00 bedtime. Medical Branch evolocumab 0 Yes [id number] Inject 1 [facility] (REPATHA 7-26 104 ml ity of SURECLICK) 00:00: subcutaneo [place] 140 mg/mL 00 usly q 2 Medica l PnIj weeks Branch losartan 50 2022-0 Yes [id number] 50mg Take 1 [facility] mg tablet 7-26 tablet by ity o f 00:00: mouth in [place] 00 the Medical morning Branch and 1 tablet in the evening. atorvastati 2022-0 Yes [id number] 40mg Take 1 [facility] n 40 mg 7-26 104 tablet by ity of tablet 00:00: mouth at [place] 00 bedtime. Medical Branch evolocumab 0 Yes [id number] Inject 1 [facility] (REPATHA 7-26 104 ml ity of SURECLICK) 00:00: subcut[place]o [place] 140 mg/mL 00 usly q 2 Med[facility] l PnIj weeks Branch losartan 50 2022-0 Yes [id number] 50mg Take 1 [facility] mg tablet 7-26 tablet by ity o f 00:00: mouth in [place] 00 the Medical morning Branch and 1 tablet in the evening. atorvastati 2022-0 Yes [id number] 40mg Take 1 [facility] n 40 mg 7-26 104 tablet by ity of tablet 00:00: mouth at [place] 00 bedtime. Medical Branch evolocumab 2022-0 Yes [id number] Inject 1 [facility] (REPATHA 7-26 104 ml ity of SURECLICK) 00:00: [place]cut[place] 140 mg/mL 00 usly q 2 Medica l PnIj weeks Branch losartan 50 2022-0 Yes [id number] 50mg Take 1 [facility] mg tablet 7-26 tablet by ity o f 00:00: mouth in [place] 00 the Medical morning Branch and 1 tablet in the evening. atorvastati 2022-0 Yes [id number] 40mg Take 1 [facility] n 40 mg 7-26 104 tablet by ity of tablet 00:00: mouth at [place] 00 bedtime. Medical Branch evolocumab 2022-0 Yes [id number] Inject 1 [facility] (REPATHA 7-26 104 ml ity of SURECLICK) 00:00: [place]cut[place] 140 mg/mL 00 usly q 2 Medica l PnIj weeks Branch losartan 50 2022-0 Yes [id number] 50mg Take 1 [facility] mg tablet 7-26 tablet by ity o f 00:00: mouth in [place] 00 the Medical morning Branch and 1 tablet in the evening. atorvastati 2022-0 Yes [id number] 40mg Take 1 [facility] n 40 mg 7-26 104 tablet by ity of tablet 00:00: mouth at [place] 00 bedtime. Medical Branch evolocumab 2022-0 Yes [id number] Inject 1 [facility] (REPATHA 7-26 104 ml ity of SURECLICK) 00:00: subcut[place]o [place] 140 mg/mL 00 usly q 2 Med[facility] l PnIj weeks Branch losartan 50 2022-0 Yes [id number] 50mg Take 1 [facility] mg tablet 7-26 tablet by ity o f 00:00: mouth in [place] 00 the Medical morning Branch and 1 tablet in the evening. atorvastati 2022-0 Yes [id number] 40mg Take 1 [facility] n 40 mg 7-26 104 tablet by ity of tablet 00:00: mouth at [place] 00 bedtime. Medical Branch evolocumab 2022-0 Yes [id number] Inject 1 [facility] (REPATHA 7-26 104 ml ity of SURECLICK) 00:00: subcut[place]o [place] 140 mg/mL 00 usly q 2 Medica l PnIj weeks Branch losartan 50 2022-0 Yes [id number] 50mg Take 1 [facility] mg tablet 7-26 tablet by ity o f 00:00: mouth in [place] 00 the Medical morning Branch and 1 tablet in the evening. atorvastati 2022-0 Yes [id number] 40mg Take 1 [facility] n 40 mg 7-26 104 tablet by ity of tablet 00:00: mouth at [place] 00 bedtime. Medical Branch evolocumab 2022-0 Yes [id number] Inject 1 [facility] (REPATHA 7-26 104 ml ity of SURECLICK) 00:00: [place]cut[place]o [place] 140 mg/mL 00 usly q 2 Med[facility] l PnIj weeks Branch losartan 50 2022-0 Yes [id number] 50mg Take 1 [facility] mg tablet 7-26 tablet by ity o f 00:00: mouth in [place] 00 the Medical morning Branch and 1 tablet in the evening. atorvastati 2022-0 Yes [id number] 40mg Take 1 [facility] n 40 mg 7-26 104 tablet by ity of tablet 00:00: mouth at [place] 00 bedtime. Medical Branch evolocumab 2022-0 Yes [id number] Inject 1 [facility] (REPATHA 7-26 104 ml ity of SURECLICK) 00:00: [place]cut[place]o [place] 140 mg/mL 00 usly q 2 [facility] l PnIj weeks Branch losartan 50 2022-0 Yes [id number] 50mg Take 1 [facility] mg tablet 7-26 tablet by ity o f 00:00: mouth in [place] 00 the Medical morning Branch and 1 tablet in the evening. atorvastati 2022-0 Yes [id number] 40mg Take 1 [facility] n 40 mg 7-26 104 tablet by ity of tablet 00:00: mouth at [place] 00 bedtime. Medical Branch evolocumab 2022-0 Yes [id number] Inject 1 [facility] (REPATHA 7-26 104 ml ity of SURECLICK) 00:00: subcut[place]o [place] 140 mg/mL 00 usly q 2 Med[facility] l PnIj weeks Branch losartan 50 2022-0 Yes [id number] 50mg Take 1 [facility] mg tablet 7-26 tablet by ity o f 00:00: mouth in [place] 00 the Medical morning Branch and 1 tablet in the evening. atorvastati 2022-0 Yes [id number] 40mg Take 1 [facility] n 40 mg 7-26 104 tablet by ity of tablet 00:00: mouth at [place] 00 bedtime. Medical Branch evolocumab 0 Yes [id number] Inject 1 [facility] (REPATHA 7-26 104 ml ity of SURECLICK) 00:00: subcut[place]o [place] 140 mg/mL 00 usly q 2 Med[facility] l PnIj weeks Branch losartan 50 2022-0 Yes [id number] 50mg Take 1 [facility] mg tablet 7-26 tablet by ity o f 00:00: mouth in [place] 00 the Medical morning Branch and 1 tablet in the evening. atorvastati 2022-0 Yes [id number] 40mg Take 1 [facility] n 40 mg 7-26 104 tablet by ity of tablet 00:00: mouth at [place] [address] bedtime. Medical Branch evolocumab 0 Yes [id number] Inject 1 [facility] (REPATHA 7-26 104 ml ity of SURECLICK) 00:00: subcut[place]o [place] 140 mg/mL 00 usly q 2 Med[facility] l PnIj weeks Branch losartan 50 2022-0 Yes [id number] 50mg Take 1 [facility] mg tablet 7-26 tablet by ity o f 00:00: mouth in [place] 00 the Medical morning Branch and 1 tablet in the evening. atorvastati 2022-0 Yes [id number] 40mg Take 1 [facility] n 40 mg 7-26 104 tablet by ity of tablet 00:00: mouth at [place] [address] bedtime. Medical Branch evolocumab 2022-0 Yes [id number] Inject 1 [facility] (REPATHA 7-26 104 ml ity of SURECLICK) 00:00: subcut[place]o [place] 140 mg/mL 00 usly q 2 Medica l PnIj weeks Branch losartan 50 2022-0 Yes [id number] 50mg Take 1 [facility] mg tablet 7-26 tablet by ity o f 00:00: mouth in [place] 00 the Medical morning Branch and 1 tablet in the evening. atorvastati 2022-0 Yes [id number] 40mg Take 1 [facility] n 40 mg 7- 104 tablet by ity of tablet 00:00: mouth at [place] 00 bedtime. Medical Branch evolocumab 2022-0 Yes [id number] Inject 1 [facility] (REPATHA 7-26 104 ml ity of SURECLICK) 00:00: subcut[place]o [place] 140 mg/mL 00 usly q 2 [facility] l [facility] losartan 50 2022-0 Yes [id number] 50mg Take 1 [facility] mg tablet 7-26 tablet by ity o f 00:00: mouth in [place] 00 the Medical morning Branch and 1 tablet in the evening. atorvastati 2022-0 Yes [id number] 40mg Take 1 [facility] n 40 mg 7- 104 tablet by ity of tablet 00:00: mouth at [place] 00 bedtime. Medical Branch losartan 50 2022-0 Yes [id number] 50mg Take 1 [facility] mg tablet 7-26 tablet by ity o f 00:00: mouth in [place] 00 the Medical morning Branch and 1 tablet in the evening. losartan 50 2022-0 Yes [id number] 50mg Take 1 [facility] mg tablet 7-26 tablet by ity o f 00:00: mouth in [place] 00 the Medical morning Branch and 1 tablet in the evening. losartan 50 2022-0 Yes [id number] 50mg Take 1 [facility] mg tablet 7-26 tablet by ity o f 00:00: mouth in [place] 00 the Medical morning Branch and 1 tablet in the evening. losartan 50 2022-0 Yes [id number] 50mg Take 1 [facility] mg tablet 7-26 tablet by ity o f 00:00: mouth in [place] 00 the Medical morning Branch and 1 tablet in the evening. losartan 50 2022-0 2022- No [id number] 50mg Take 1 [facility] mg tablet -01-29 tablet by ity of 00:00: 00:00 mouth in [place] 00 :00 the Medical morning Branch and 1 tablet in the evening. atorvastati 2022-0 3- No [id number] 40mg Take 1 [facility] n 40 mg -01-25 104 tablet by ity of tablet 00:00: 00:00 mouth at [place] 00 :00 bedtime. Medical Branch evolocumab 2022- No [id number] Inject 1 [facility] (REPATHA 7-26 09-18 104 ml ity of SURECLICK) 00:00: 00:00 subcutaneo [place] 140 mg/mL 00 :00 usly q 2 Med[facility] l PnIj weeks Branch evolocumab Yes [id number] Inject 1 [facility] (REPATHA 7-12 104 ml ity of SURECLICK) 00:00: subcut[place] 140 mg/mL 00 usly q 2 Med[facility] l PnIj weeks Branch atorvastati Yes Take 1 [facility] ers n 80 mg 7-12 tablet ity of tablet 00:00: every [place] 00 night Medical Branch evolocumab Yes [id number] Inject 1 [facility] (REPATHA 7-12 104 ml ity of SURECLICK) 00:00: subcutaneo [place] 140 mg/mL 00 usly q 2 Med[facility] l PnIj weeks Branch atorvastati Yes Take 1 [facility] ers n 80 mg 7-12 tablet ity of tablet 00:00: every [place] night Medical Branch evolocumab Yes [id number] Inject 1 [facility] (REPATHA 7-12 104 ml ity of SURECLICK) 00:00: [place]cut[place]o [place] 140 mg/mL 00 usly q 2 Med[facility] l PnIj weeks Branch atorvastati Yes Take 1 [facility] ers n 80 mg 7-12 tablet ity of tablet 00:00: every [place] 00 night Medical Branch evolocumab Yes [id number] Inject 1 [facility] (REPATHA 7-12 104 ml ity of SURECLICK) 00:00: [place]cut[place]o [place] 140 mg/mL 00 usly q 2 Med[facility] l PnIj weeks Branch atorvastati Yes Take 1 [facility] ers n 80 mg 7-12 tablet ity of tablet 00:00: every [place] night Medical Branch evolocumab Yes [id number] Inject 1 [facility] (REPATHA 7-12 104 ml ity of SURECLICK) 00:00: subcut[place]o [place] 140 mg/mL 00 usly q 2 Med[facility] l PnIj weeks Branch atorvastati Yes Take 1 [facility] ers n 80 mg 7-12 tablet ity of tablet 00:00: every 00 night Medical Branch evolocumab 0 Yes [id number] Inject 1 [facility] (REPATHA 7-12 104 ml ity of SURECLICK) 00:00: subcutaneo [place] 140 mg/mL 00 usly q 2 Medica l PnIj weeks Branch atorvastati 0 Yes Take 1 [facility] ers n 80 mg 7-12 tablet ity of tablet 00:00: every 00 night Medical Branch evolocumab 2022- No [id number] Inject 1 [facility] (REPATHA 7-12 - 104 ml ity of SURECLICK) 00:00: 00:00 subcutaneo [place] 140 mg/mL 00 :00 usly q 2 Medica l PnIj weeks Branch atorvastati 2022- No Take 1 [facility] vers n 80 mg 7-04 08- tablet ity of tablet 00:00: 00:00 every [place] 00 :00 night Medical Branch metFORMIN 2022-0 Yes [id number] 500mg Take 1 [facility] 500 mg 5-09 tablet by ity of tablet 00:00: mouth in [place] the Medical morning. Branch semaglutide 2022-0 Yes [id number] .25mg inject [facility] , weight 5-09 0.25 mg ity of loss, 0.25 00:00: under the [place] mg/0.5 mL 00 skin Medical PnIj [place] weekly. Branch injection metFORMIN 2022-0 Yes [id number] 500mg Take 1 [facility] 500 mg 5-09 tablet by ity of tablet 00:00: mouth in [place] the Medical morning. Branch semaglutide 2022-0 Yes [id number] .25mg inject [facility] , weight 5-09 0.25 mg ity of loss, 0.25 00:00: under the [place] mg/0.5 mL 00 skin Medical PnIj [place] weekly. Branch injection metFORMIN 2022-0 Yes [id number] 500mg Take 1 [facility] 500 mg 5-09 tablet by ity of tablet 00:00: mouth in [place] 00 the Medical morning. Branch semaglutide 2022-0 Yes [id number] .25mg inject [facility] , weight 5-09 0.25 mg ity of loss, 0.25 00:00: under the [place] mg/0.5 mL 00 skin Medical PnIj [place] weekly. Branch injection metFORMIN 3-0 Yes [id number] 500mg Take 1 [facility] 500 mg 5-09 tablet by ity of tablet 00:00: mouth in [place] the Medical morning. Branch semaglutide 3-0 Yes [id number] .25mg inject [facility] , weight 5-09 0.25 mg ity of loss, 0.25 00:00: under the [place] mg/0.5 mL 00 skin Medical PnIj [place] weekly. Branch injection metFORMIN 3-0 Yes [id number] 500mg Take 1 [facility] 500 mg 5-09 tablet by ity of tablet 00:00: mouth in [place] the Medical morning. Branch semaglutide 3-0 Yes [id number] .25mg inject [facility] , weight 5-09 0.25 mg ity of loss, 0.25 00:00: under the [place] mg/0.5 mL 00 skin Medical PnIj [place] weekly. Branch injection metFORMIN 2022-0 Yes [id number] 500mg Take 1 [facility] 500 mg 5-09 tablet by ity of tablet 00:00: mouth in [place] the Medical morning. Branch semaglutide 3-0 Yes [id number] .25mg inject [facility] , weight 5-09 0.25 mg ity of loss, 0.25 00:00: under the [place] mg/0.5 mL 00 skin Medical PnIj [place] weekly. Branch injection metFORMIN 3-0 Yes [id number] 500mg Take 1 [facility] 500 mg 5-09 tablet by ity of tablet 00:00: mouth in [place] the Medical morning. Branch semaglutide 3-0 Yes [id number] .25mg inject [facility] , weight 5-09 0.25 mg ity of loss, 0.25 00:00: under the [place] mg/0.5 mL 00 skin Medical PnIj [place] weekly. Branch injection metFORMIN 3-0 Yes [id number] 500mg Take 1 [facility] 500 mg 5-09 tablet by ity of tablet 00:00: mouth in [place] the Medical morning. Branch semaglutide 2023-0 Yes [id number] .25mg inject [facility] , weight 5-09 0.25 mg ity of loss, 0.25 00:00: under the [place] mg/0.5 mL 00 skin Medical PnIj [place] weekly. Branch injection metFORMIN 3-0 Yes [id number] 500mg Take 1 [facility] 500 mg 5-09 tablet by ity of tablet 00:00: mouth in [place] 00 the Medical morning. Branch semaglutide 2023-0 Yes [id number] .25mg inject [facility] , weight 5-09 0.25 mg ity of loss, 0.25 00:00: under the [place] mg/0.5 mL 00 skin Medical PnIj [place] weekly. Branch injection metFORMIN 3-0 Yes [id number] 500mg Take 1 [facility] 500 mg 5-09 tablet by ity of tablet 00:00: mouth in [place] the Medical morning. Branch semaglutide 2023-0 Yes [id number] .25mg inject [facility] , weight 5-09 0.25 mg ity of loss, 0.25 00:00: under the [place] mg/0.5 mL 00 skin Medical PnIj [place] weekly. Branch injection metFORMIN 3-0 Yes [id number] 500mg Take 1 [facility] 500 mg 5-09 tablet by ity of tablet 00:00: mouth in [place] the Medical morning. Branch semaglutide 2023-0 Yes [id number] .25mg inject [facility] , weight 5-09 0.25 mg ity of loss, 0.25 00:00: under the [place] mg/0.5 mL 00 skin Medical PnIj [place] weekly. Branch injection metFORMIN 3-0 Yes [id number] 500mg Take 1 [facility] 500 mg 5-09 tablet by ity of tablet 00:00: mouth in [place] the Medical morning. Branch semaglutide 2023-0 Yes [id number] .25mg inject [facility] , weight 5-09 0.25 mg ity of loss, 0.25 00:00: under the [place] mg/0.5 mL 00 skin Medical PnIj [place] weekly. Branch injection metFORMIN 2023-0 Yes [id number] 500mg Take 1 [facility] 500 mg 5-09 tablet by ity of tablet 00:00: mouth in [place] the Medical morning. Branch semaglutide 2023-0 Yes [id number] .25mg inject [facility] , weight 5-09 0.25 mg ity of loss, 0.25 00:00: under the [place] mg/0.5 mL 00 skin Medical PnIj [place] weekly. Branch injection metFORMIN 3-0 Yes [id number] 500mg Take 1 [facility] 500 mg 5-09 tablet by ity of tablet 00:00: mouth in [place] the Medical morning. Branch semaglutide 3-0 Yes [id number] .25mg inject [facility] , weight 5-09 0.25 mg ity of loss, 0.25 00:00: under the [place] mg/0.5 mL 00 skin Medical PnIj [place] weekly. Branch injection metFORMIN 2022-0 Yes [id number] 500mg Take 1 [facility] 500 mg 5-09 tablet by ity of tablet 00:00: mouth in [place] the Medical morning. Branch semaglutide 2022-0 Yes [id number] .25mg inject [facility] , weight 5-09 0.25 mg ity of loss, 0.25 00:00: under the [place] mg/0.5 mL 00 skin Medical PnIj [place] weekly. Branch injection metFORMIN 2022-0 Yes [id number] 500mg Take 1 [facility] 500 mg 5-09 tablet by ity of tablet 00:00: mouth in [place] the Medical morning. Branch semaglutide 2022-0 Yes [id number] .25mg inject [facility] , weight 5-09 0.25 mg ity of loss, 0.25 00:00: under the [place] mg/0.5 mL 00 skin Medical PnIj [place] weekly. Branch injection metFORMIN 2022-0 Yes [id number] 500mg Take 1 [facility] 500 mg 5-09 tablet by ity of tablet 00:00: mouth in [place] the Medical morning. Branch semaglutide 3-0 Yes [id number] .25mg inject [facility] , weight 5-09 0.25 mg ity of loss, 0.25 00:00: under the [place] mg/0.5 mL 00 skin Medical PnIj [place] weekly. Branch injection metFORMIN 3-0 Yes [id number] 500mg Take 1 [facility] 500 mg 5-09 tablet by ity of tablet 00:00: mouth in [place] the Medical morning. Branch semaglutide 2023-0 Yes [id number] .25mg inject [facility] , weight 5-09 0.25 mg ity of loss, 0.25 00:00: under the [place] mg/0.5 mL 00 skin Medical PnIj [place] weekly. Branch injection metFORMIN 2022-0 Yes [id number] 500mg Take 1 [facility] 500 mg 5-09 tablet by ity of tablet 00:00: mouth in [place] the Medical morning. Branch semaglutide 2022-0 Yes [id number] .25mg inject [facility] , weight 5-09 0.25 mg ity of loss, 0.25 00:00: under the [place] mg/0.5 mL 00 skin Medical PnIj [place] weekly. Branch injection metFORMIN 2022-0 Yes [id number] 500mg Take 1 [facility] 500 mg 5-09 tablet by ity of tablet 00:00: mouth in [place] the Medical morning. Branch semaglutide 2022-0 Yes [id number] .25mg inject [facility] , weight 5-09 0.25 mg ity of loss, 0.25 00:00: under the [place] mg/0.5 mL 00 skin Medical PnIj [place] weekly. Branch injection metFORMIN 2022-0 Yes [id number] 500mg Take 1 [facility] 500 mg 5-09 tablet by ity of tablet 00:00: mouth in [place] the Medical morning. Branch semaglutide 2022-0 Yes [id number] .25mg inject [facility] , weight 5-09 0.25 mg ity of loss, 0.25 00:00: under the [place] mg/0.5 mL 00 skin Medical PnIj [place] weekly. Branch injection metFORMIN 2022-0 Yes [id number] 500mg Take 1 [facility] 500 mg 5-09 tablet by ity of tablet 00:00: mouth in [place] the Medical morning. Branch semaglutide 2022-0 Yes [id number] .25mg inject [facility] , weight 5-09 0.25 mg ity of loss, 0.25 00:00: under the [place] mg/0.5 mL 00 skin Medical PnIj [place] weekly. Branch injection metFORMIN 2022-0 Yes [id number] 500mg Take 1 [facility] 500 mg 5-09 tablet by ity of tablet 00:00: mouth in [place] the Medical morning. Branch semaglutide 3-0 Yes [id number] .25mg inject [facility] , weight 5-09 0.25 mg ity of loss, 0.25 00:00: under the [place] mg/0.5 mL 00 skin Medical PnIj [place] weekly. Branch injection metFORMIN 2023-0 Yes [id number] 500mg Take 1 [facility] 500 mg 5-09 tablet by ity of tablet 00:00: mouth in [place] 00 the Medical morning. Branch semaglutide 3-0 Yes [id number] .25mg inject [facility] , weight 5-09 0.25 mg ity of loss, 0.25 00:00: under the [place] mg/0.5 mL 00 skin Medical PnIj [place] weekly. Branch injection metFORMIN 3-0 Yes [id number] 500mg Take 1 [facility] 500 mg 5-09 tablet by ity of tablet 00:00: mouth in [place] 00 the Medical morning. Branch semaglutide 2022-0 Yes [id number] .25mg inject [facility] , weight 5-09 0.25 mg ity of loss, 0.25 00:00: under the [place] mg/0.5 mL 00 skin Medical PnIj [place] weekly. Branch injection metFORMIN 3-0 Yes [id number] 500mg Take 1 [facility] 500 mg 5-09 tablet by ity of tablet 00:00: mouth in [place] the Medical morning. Branch semaglutide 3-0 Yes [id number] .25mg inject [facility] , weight 5-09 0.25 mg ity of loss, 0.25 00:00: under the [place] mg/0.5 mL 00 skin Medical PnIj [place] weekly. Branch injection metFORMIN 3-0 Yes [id number] 500mg Take 1 [facility] 500 mg 5-09 tablet by ity of tablet 00:00: mouth in [place] the Medical morning. Branch semaglutide 3-0 Yes [id number] .25mg inject [facility] , weight 5-09 0.25 mg ity of loss, 0.25 00:00: under the [place] mg/0.5 mL 00 skin Medical PnIj [place] weekly. Branch injection semaglutide 3-0 Yes [id number] .25mg inject [facility] , weight 5-09 0.25 mg ity of loss, 0.25 00:00: under the [place] mg/0.5 mL 00 skin Medical PnIj [place] weekly. Branch injection semaglutide 3-0 Yes [id number] .25mg inject [facility] , weight 5-09 0.25 mg ity of loss, 0.25 00:00: under the [place] mg/0.5 mL 00 skin Medical PnIj [place] weekly. Branch injection semaglutide 2023-0 Yes [id number] .25mg inject [facility] , weight 5-09 0.25 mg ity of loss, 0.25 00:00: under the [place] mg/0.5 mL 00 skin Medical PnIj [place] weekly. Branch injection semaglutide 2023-0 Yes [id number] .25mg inject [facility] , weight 5-09 0.25 mg ity of loss, 0.25 00:00: under the [place] mg/0.5 mL 00 skin Medical PnIj [place] weekly. Branch injection semaglutide 2023-0 Yes [id number] .25mg inject [facility] , weight 5-09 0.25 mg ity of loss, 0.25 00:00: under the [place] mg/0.5 mL 00 skin Medical PnIj [place] weekly. Branch injection semaglutide 2023-0 Yes [id number] .25mg inject [facility] , weight 5-09 0.25 mg ity of loss, 0.25 00:00: under the [place] mg/0.5 mL 00 skin Medical PnIj [place] weekly. Branch injection semaglutide 2023-0 Yes [id number] .25mg inject [facility] , weight 5-09 0.25 mg ity of loss, 0.25 00:00: under the [place] mg/0.5 mL 00 skin Medical PnIj [place] weekly. Branch injection semaglutide 2023-0 Yes [id number] .25mg inject [facility] , weight 5-09 0.25 mg ity of loss, 0.25 00:00: under the [place] mg/0.5 mL 00 skin Medical PnIj [place] weekly. Branch injection semaglutide 2023-0 Yes [id number] .25mg inject [facility] , weight 5-09 0.25 mg ity of loss, 0.25 00:00: under the [place] mg/0.5 mL 00 skin Medical PnIj [place] weekly. Branch injection semaglutide 2023-0 Yes [id number] .25mg inject [facility] , weight 5-09 0.25 mg ity of loss, 0.25 00:00: under the [place] mg/0.5 mL 00 skin Medical PnIj [place] weekly. Branch injection semaglutide 2023-0 Yes [id number] .25mg inject [facility] , weight 5-09 0.25 mg ity of loss, 0.25 00:00: under the [place] mg/0.5 mL 00 skin Medical PnIj [place] weekly. Branch injection semaglutide 2022-0 Yes [id number] .25mg inject [facility] , weight 5-09 0.25 mg ity of loss, 0.25 00:00: under the [place] mg/0.5 mL 00 skin Medical PnIj [place] weekly. Branch injection semaglutide 2022-0 2022- No [id number] .25mg inject [facility] , weight 5-01 09-08 0.25 mg ity of loss, 0.25 00:00: 00:00 under the [place] mg/0.5 mL 00 :00 skin Medical PnIj [place] weekly. Branch injection semaglutide 2022-0 2022- No [id number] .25mg inject [facility] , weight 5-08 0.25 mg ity of loss, 0.25 00:00: 00:00 under the [place] mg/0.5 mL 00 :00 skin Medical PnIj [place] weekly. Branch injection metFORMIN 2022-0 3- No [id number] 500mg Take 1 [facility] 500 mg 5-24 tablet by ity of tablet 00:00: 00:00 mouth in [place] 00 :00 the Medical morning. Branch metFORMIN 2022-0 3- No [id number] 500mg Take 1 [facility] 500 mg 09-08-24 tablet by ity of tablet 00:00: 00:00 mouth in [place] 00 :00 the Medical morning. Branch metFORMIN 2022-0 3- No [id number] 500mg Take 1 [facility] 500 mg 09-08-24 tablet by ity of tablet 00:00: 00:00 mouth in [place] 00 :00 the Medical morning. Branch NIFEDIPINE 2022-0 Yes [id number] TAKE 1 U nivers XL 30 mg 24 4-28 TABLET BY ity of hr tablet 00:00: MOUTH IN [place] [id number] THE Medical MORNING Branch AND 1 TABLET IN THE EVENING. DO ALL THIS FOR 90 DAYS. NIFEDIPINE 2022-0 Yes [id number] TAKE 1 U nivers XL 30 mg 24 4-28 TABLET BY ity of hr tablet 00:00: MOUTH IN [facility] 00 THE Medical MORNING Branch AND 1 TABLET IN THE EVENING. DO ALL THIS FOR 90 DAYS. NIFEDIPINE 2022-0 Yes [id number] TAKE 1 U nivers XL 30 mg 24 4-28 TABLET BY ity of hr tablet 00:00: [place]TH [place] 00 THE Medical MORNING Branch AND 1 TABLET IN THE EVENING. DO ALL THIS FOR 90 DAYS. NIFEDIPINE 3-0 Yes [id number] TAKE 1 U nivers XL 30 mg 24 4-28 TABLET BY ity of hr tablet 00:00: [place] 00 THE Medical MORNING Branch AND 1 TABLET IN THE EVENING. DO ALL THIS FOR 90 DAYS. NIFEDIPINE 3-0 Yes [id number] TAKE 1 U nivers XL 30 mg 24 4-28 TABLET BY ity of hr tablet 00:00: [place] 00 THE Medical MORNING Branch AND 1 TABLET IN THE EVENING. DO ALL THIS FOR 90 DAYS. NIFEDIPINE 3-0 Yes [id number] TAKE 1 U nivers XL 30 mg 24 4-28 TABLET BY ity of hr tablet 00:00: [place] 00 THE Medical MORNING Branch AND 1 TABLET IN THE EVENING. DO ALL THIS FOR 90 DAYS. NIFEDIPINE 3-0 Yes [id number] TAKE 1 U nivers XL 30 mg 24 4-28 TABLET BY ity of hr tablet 00:00: [place] 00 THE Medical MORNING Branch AND 1 TABLET IN THE EVENING. DO ALL THIS FOR 90 DAYS. NIFEDIPINE 3-0 Yes [id number] TAKE 1 U nivers XL 30 mg 24 4-28 TABLET BY ity of hr tablet 00:00: [place] 00 THE Medical MORNING Branch AND 1 TABLET IN THE EVENING. DO ALL THIS FOR 90 DAYS. NIFEDIPINE 3-0 Yes [id number] TAKE 1 U nivers XL 30 mg 24 4-28 TABLET BY ity of hr tablet 00:00: [place] 00 THE Medical MORNING Branch AND 1 TABLET IN THE EVENING. DO ALL THIS FOR 90 DAYS. NIFEDIPINE 3-0 Yes [id number] TAKE 1 U nivers XL 30 mg 24 4-28 TABLET BY ity of hr tablet 00:00: [place] 00 THE Medical MORNING Branch AND 1 TABLET IN THE EVENING. DO ALL THIS FOR 90 DAYS. NIFEDIPINE 2023-0 Yes [id number] TAKE 1 U nivers XL 30 mg 24 4-28 TABLET BY ity of hr tablet 00:00: [place] 00 THE Medical MORNING Branch AND 1 TABLET IN THE EVENING. DO ALL THIS FOR 90 DAYS. NIFEDIPINE 2023-0 Yes [id number] TAKE 1 U nivers XL 30 mg 24 4-28 TABLET BY ity of hr tablet 00:00: M[place] 00 THE Medical MORNING Branch AND 1 TABLET IN THE EVENING. DO ALL THIS FOR 90 DAYS. NIFEDIPINE 3-0 Yes [id number] TAKE 1 U nivers XL 30 mg 24 4-28 TABLET BY ity of hr tablet 00:00: [place] 00 THE Medical MORNING Branch AND 1 TABLET IN THE EVENING. DO ALL THIS FOR 90 DAYS. NIFEDIPINE 3-0 Yes [id number] TAKE 1 U nivers XL 30 mg 24 4-28 TABLET BY ity of hr tablet 00:00: [place] 00 THE Medical MORNING Branch AND 1 TABLET IN THE EVENING. DO ALL THIS FOR 90 DAYS. NIFEDIPINE 3-0 Yes [id number] TAKE 1 U nivers XL 30 mg 24 4-28 TABLET BY ity of hr tablet 00:00: [place] 00 THE Medical MORNING Branch AND 1 TABLET IN THE EVENING. DO ALL THIS FOR 90 DAYS. NIFEDIPINE 3-0 Yes [id number] TAKE 1 U nivers XL 30 mg 24 4-28 TABLET BY ity of hr tablet 00:00: [place] 00 THE Medical MORNING Branch AND 1 TABLET IN THE EVENING. DO ALL THIS FOR 90 DAYS. NIFEDIPINE 3-0 Yes [id number] TAKE 1 U nivers XL 30 mg 24 4-28 TABLET BY ity of hr tablet 00:00: [place] 00 THE Medical MORNING Branch AND 1 TABLET IN THE EVENING. DO ALL THIS FOR 90 DAYS. NIFEDIPINE 3-0 Yes [id number] TAKE 1 U nivers XL 30 mg 24 4-28 TABLET BY ity of hr tablet 00:00: [place] 00 THE Medical MORNING Branch AND 1 TABLET IN THE EVENING. DO ALL THIS FOR 90 DAYS. NIFEDIPINE 3-0 Yes [id number] TAKE 1 U nivers XL 30 mg 24 4-28 TABLET BY ity of hr tablet 00:00: M[place] 00 THE Medical MORNING Branch AND 1 TABLET IN THE EVENING. DO ALL THIS FOR 90 DAYS. NIFEDIPINE 2023-0 Yes [id number] TAKE 1 U nivers XL 30 mg 24 4-28 TABLET BY ity of hr tablet 00:00: [place] 00 THE Medical MORNING Branch AND 1 TABLET IN THE EVENING. DO ALL THIS FOR 90 DAYS. NIFEDIPINE 2023-0 Yes [id number] TAKE 1 U nivers XL 30 mg 24 4-28 TABLET BY ity of hr tablet 00:00: [place] THE Medical MORNING Branch AND 1 TABLET IN THE EVENING. DO ALL THIS FOR 90 DAYS. NIFEDIPINE 3-0 Yes [id number] TAKE 1 U nivers XL 30 mg 24 4-28 TABLET BY ity of hr tablet 00:00: [place] 00 THE Medical MORNING Branch AND 1 TABLET IN THE EVENING. DO ALL THIS FOR 90 DAYS. NIFEDIPINE 3-0 Yes [id number] TAKE 1 U nivers XL 30 mg 24 4-28 TABLET BY ity of hr tablet 00:00: [place] 00 THE Medical MORNING Branch AND 1 TABLET IN THE EVENING. DO ALL THIS FOR 90 DAYS. NIFEDIPINE 3-0 Yes [id number] TAKE 1 U nivers XL 30 mg 24 4-28 TABLET BY ity of hr tablet 00:00: [place] 00 THE Medical MORNING Branch AND 1 TABLET IN THE EVENING. DO ALL THIS FOR 90 DAYS. NIFEDIPINE 3-0 Yes [id number] TAKE 1 U nivers XL 30 mg 24 4-28 TABLET BY ity of hr tablet 00:00: [place] 00 THE Medical MORNING Branch AND 1 TABLET IN THE EVENING. DO ALL THIS FOR 90 DAYS. NIFEDIPINE 3-0 Yes [id number] TAKE 1 U nivers XL 30 mg 24 4-28 TABLET BY ity of hr tablet 00:00: M[place] 00 THE Medical MORNING Branch AND 1 TABLET IN THE EVENING. DO ALL THIS FOR 90 DAYS. NIFEDIPINE 3-0 Yes [id number] TAKE 1 U nivers XL 30 mg 24 4-28 TABLET BY ity of hr tablet 00:00: M[place] 00 THE Medical MORNING Branch AND 1 TABLET IN THE EVENING. DO ALL THIS FOR 90 DAYS. NIFEDIPINE 2023-0 Yes [id number] TAKE 1 U nivers XL 30 mg 24 4-28 TABLET BY ity of hr tablet 00:00: M[place]TH [place] 00 THE Medical MORNING Branch AND 1 TABLET IN THE EVENING. DO ALL THIS FOR 90 DAYS. NIFEDIPINE 2023-0 Yes [id number] TAKE 1 U nivers XL 30 mg 24 4-28 TABLET BY ity of hr tablet 00:00: M[place] 00 THE Medical MORNING Branch AND 1 TABLET IN THE EVENING. DO ALL THIS FOR 90 DAYS. NIFEDIPINE 2023-0 Yes [id number] TAKE 1 U nivers XL 30 mg 24 4-28 TABLET BY ity of hr tablet 00:00: M[place] 00 THE Medical MORNING Branch AND 1 TABLET IN THE EVENING. DO ALL THIS FOR 90 DAYS. NIFEDIPINE 2023-0 Yes [id number] TAKE 1 U nivers XL 30 mg 24 4-28 TABLET BY ity of hr tablet 00:00: M[place]TH [place] 00 THE Medical MORNING Branch AND 1 TABLET IN THE EVENING. DO ALL THIS FOR 90 DAYS. NIFEDIPINE 2023-0 Yes [id number] TAKE 1 U nivers XL 30 mg 24 4-28 TABLET BY ity of hr tablet 00:00: M[place]TH [place] 00 THE Medical MORNING Branch AND 1 TABLET IN THE EVENING. DO ALL THIS FOR 90 DAYS. NIFEDIPINE 2023-0 Yes [id number] TAKE 1 U nivers XL 30 mg 24 4-28 TABLET BY ity of hr tablet 00:00: M[place]TH [place] 00 THE Medical MORNING Branch AND 1 TABLET IN THE EVENING. DO ALL THIS FOR 90 DAYS. NIFEDIPINE 3-0 Yes [id number] TAKE 1 U nivers XL 30 mg 24 4-28 TABLET BY ity of hr tablet 00:00: M[place] THE Medical MORNING Branch AND 1 TABLET IN THE EVENING. DO ALL THIS FOR 90 DAYS. NIFEDIPINE 3-0 Yes [id number] TAKE 1 U nivers XL 30 mg 24 4-28 TABLET BY ity of hr tablet 00:00: M[place] 00 THE Medical MORNING Branch AND 1 TABLET IN THE EVENING. DO ALL THIS FOR 90 DAYS. NIFEDIPINE 2023-0 Yes [id number] TAKE 1 U nivers XL 30 mg 24 4-28 TABLET BY ity of hr tablet 00:00: M[place] 00 THE Medical MORNING Branch AND 1 TABLET IN THE EVENING. DO ALL THIS FOR 90 DAYS. NIFEDIPINE 2023-0 Yes [id number] TAKE 1 U nivers XL 30 mg 24 4-28 TABLET BY ity of hr tablet 00:00: M[place] 00 THE Medical MORNING Branch AND 1 TABLET IN THE EVENING. DO ALL THIS FOR 90 DAYS. NIFEDIPINE 2023-0 Yes [id number] TAKE 1 U nivers XL 30 mg 24 4-28 TABLET BY ity of hr tablet 00:00: MOUTH [place] 00 THE Medical MORNING Branch AND 1 TABLET IN THE EVENING. DO ALL THIS FOR 90 DAYS. NIFEDIPINE 2023-0 Yes [id number] TAKE 1 U nivers XL 30 mg 24 4-28 TABLET BY ity of hr tablet 00:00: MOUTH [place] 00 THE Medical MORNING Branch AND 1 TABLET IN THE EVENING. DO ALL THIS FOR 90 DAYS. NIFEDIPINE 3-0 Yes [id number] TAKE 1 U nivers XL 30 mg 24 4-28 TABLET BY ity of hr tablet 00:00: M[place] 00 THE Medical MORNING Branch AND 1 TABLET IN THE EVENING. DO ALL THIS FOR 90 DAYS. NIFEDIPINE 3-0 Yes [id number] TAKE 1 U nivers XL 30 mg 24 4-28 TABLET BY ity of hr tablet 00:00: M[place] 00 THE Medical MORNING Branch AND 1 TABLET IN THE EVENING. DO ALL THIS FOR 90 DAYS. NIFEDIPINE 3-0 Yes [id number] TAKE 1 U nivers XL 30 mg 24 4-28 TABLET BY ity of hr tablet 00:00: MOUTH [place] 00 THE Medical MORNING Branch AND 1 TABLET IN THE EVENING. DO ALL THIS FOR 90 DAYS. NIFEDIPINE 3-0 Yes [id number] TAKE 1 U nivers XL 30 mg 24 4-28 TABLET BY ity of hr tablet 00:00: MOUTH IN [place] 00 THE Medical MORNING Branch AND 1 TABLET IN THE EVENING. DO ALL THIS FOR 90 DAYS. NIFEDIPINE 3-0 Yes [id number] TAKE 1 U nivers XL 30 mg 24 4-28 TABLET BY ity of hr tablet 00:00: MOUTH [place] 00 THE Medical MORNING Branch AND 1 TABLET IN THE EVENING. DO ALL THIS FOR 90 DAYS. NIFEDIPINE 3-0 Yes [id number] TAKE 1 U nivers XL 30 mg 24 4-28 TABLET BY ity of hr tablet 00:00: MOUTH [place] 00 THE Medical MORNING Branch AND 1 TABLET IN THE EVENING. DO ALL THIS FOR 90 DAYS. NIFEDIPINE 2023-0 Yes [id number] TAKE 1 U nivers XL 30 mg 24 4-28 TABLET BY ity of hr tablet 00:00: MOUTH [place] 00 THE Medical MORNING Branch AND 1 TABLET IN THE EVENING. DO ALL THIS FOR 90 DAYS. NIFEDIPINE 2023-0 Yes [id number] TAKE 1 U nivers XL 30 mg 24 4-28 TABLET BY ity of hr tablet 00:00: MOUTH [place] 00 THE Medical MORNING Branch AND 1 TABLET IN THE EVENING. DO ALL THIS FOR 90 DAYS. NIFEDIPINE 2023-0 Yes [id number] TAKE 1 U nivers XL 30 mg 24 4-28 TABLET BY ity of hr tablet 00:00: MOUTH [place] 00 THE Medical MORNING Branch AND 1 TABLET IN THE EVENING. DO ALL THIS FOR 90 DAYS. NIFEDIPINE 3-0 Yes [id number] TAKE 1 U nivers XL 30 mg 24 4-28 TABLET BY ity of hr tablet 00:00: M[place] 00 THE Medical MORNING Branch AND 1 TABLET IN THE EVENING. DO ALL THIS FOR 90 DAYS. NIFEDIPINE 3-0 Yes [id number] TAKE 1 U nivers XL 30 mg 24 4-28 TABLET BY ity of hr tablet 00:00: M[place] 00 THE Medical MORNING Branch AND 1 TABLET IN THE EVENING. DO ALL THIS FOR 90 DAYS. NIFEDIPINE 3-0 Yes [id number] TAKE 1 U nivers XL 30 mg 24 4-28 TABLET BY ity of hr tablet 00:00: MOU[place] 00 THE Medical MORNING Branch AND 1 TABLET IN THE EVENING. DO ALL THIS FOR 90 DAYS. NIFEDIPINE 3-0 Yes [id number] TAKE 1 U nivers XL 30 mg 24 4-28 TABLET BY ity of hr tablet 00:00: M[place] 00 THE Medical MORNING Branch AND 1 TABLET IN THE EVENING. DO ALL THIS FOR 90 DAYS. NIFEDIPINE 3-0 Yes [id number] TAKE 1 U nivers XL 30 mg 24 4-28 TABLET BY ity of hr tablet 00:00: MOU[place] 00 THE Medical MORNING Branch AND 1 TABLET IN THE EVENING. DO ALL THIS FOR 90 DAYS. NIFEDIPINE 3-0 Yes [id number] TAKE 1 U nivers XL 30 mg 24 4-28 TABLET BY ity of hr tablet 00:00: MOUTH IN [place] 00 THE Medical MORNING Branch AND 1 TABLET IN THE EVENING. DO ALL THIS FOR 90 DAYS. NIFEDIPINE 2023-0 Yes [id number] TAKE 1 U nivers XL 30 mg 24 4-28 TABLET BY ity of hr tablet 00:00: MOUTH IN [place] 00 THE Medical MORNING Branch AND 1 TABLET IN THE EVENING. DO ALL THIS FOR 90 DAYS. NIFEDIPINE 2023-0 Yes [id number] TAKE 1 U nivers XL 30 mg 24 4-28 TABLET BY ity of hr tablet 00:00: MOUTH IN [place] 00 THE Medical MORNING Branch AND 1 TABLET IN THE EVENING. DO ALL THIS FOR 90 DAYS. NIFEDIPINE 2022-0 Yes [id number] TAKE 1 U nivers XL 30 mg 24 4-28 TABLET BY ity of hr tablet 00:00: [place] 00 THE [facility] Branch AND 1 TABLET IN THE EVENING. DO ALL THIS FOR 90 DAYS. NIFEDIPINE 2022-0 Yes [id number] TAKE 1 U nivers XL 30 mg 24 4-28 TABLET BY ity of hr tablet 00:00: M[place] 00 THE [facility] Branch AND 1 TABLET IN THE EVENING. DO ALL THIS FOR 90 DAYS. NIFEDIPINE 2022-0 Yes [id number] TAKE 1 U nivers XL 30 mg 24 4-28 TABLET BY ity of hr tablet 00:00: M[place] 00 THE [facility] Branch AND 1 TABLET IN THE EVENING. DO ALL THIS FOR 90 DAYS. NIFEDIPINE 2022-0 Yes [id number] TAKE 1 U nivers XL 30 mg 24 4-28 TABLET BY ity of hr tablet 00:00: MOUTH [place] 00 THE [facility] Branch AND 1 TABLET IN THE EVENING. DO ALL THIS FOR 90 DAYS. mirabegron 0 Yes [id number] TAKE 1 U nivers (MYRBETRIQ) 3-07 TABLET BY ity of 50 mg 00:00: MOUTH [place] tablet 00 EVERY DAY Medical IN THE [place] MORNING mirabegron 2022-0 Yes [id number] TAKE 1 U nivers (MYRBETRIQ) 3-07 TABLET BY ity of 50 mg 00:00: MOUTH [place] tablet 00 EVERY DAY Medical IN THE [place] MORNING mirabegron 2022-0 Yes [id number] TAKE 1 U nivers (MYRBETRIQ) 3-07 TABLET BY ity of 50 mg 00:00: MOUTH [place] tablet 00 EVERY DAY Medical IN THE [place] MORNING mirabegron 2022-0 Yes [id number] TAKE 1 U nivers (MYRBETRIQ) 3-07 TABLET BY ity of 50 mg 00:00: MOUTH [place] tablet 00 EVERY DAY Medical IN THE [place] MORNING mirabegron 2022-0 Yes [id number] TAKE 1 U nivers (MYRBETRIQ) 3-07 TABLET BY ity of 50 mg 00:00: MOUTH [place] tablet 00 EVERY DAY Medical IN THE [place] MORNING mirabegron 2022-0 Yes [id number] TAKE 1 U nivers (MYRBETRIQ) 3-07 TABLET BY ity of 50 mg 00:00: MOUTH [place] tablet 00 EVERY DAY Medical IN THE [facility] mirabegron Yes [id number] TAKE 1 U nivers (MYRBETRIQ) 3-07 TABLET BY ity of 50 mg 00:00: MOUTH [place] tablet 00 EVERY DAY Medical IN THE [facility] mirabegron Yes [id number] TAKE 1 U nivers (MYRBETRIQ) 3-07 TABLET BY ity of 50 mg 00:00: MOUTH [place] tablet 00 EVERY DAY Medical IN THE [facility] mirabegron Yes [id number] TAKE 1 U nivers (MYRBETRIQ) 3-07 TABLET BY ity of 50 mg 00:00: MOUTH [place] tablet 00 EVERY DAY Medical IN THE [facility] mirabegron Yes [id number] TAKE 1 U nivers (MYRBETRIQ) 3-07 TABLET BY ity of 50 mg 00:00: MOUTH [place] tablet 00 EVERY DAY Medical IN THE [facility] mirabegron Yes [id number] TAKE 1 U nivers (MYRBETRIQ) 3-07 TABLET BY ity of 50 mg 00:00: MOUTH [place] tablet 00 EVERY DAY Medical IN THE [facility] mirabegron Yes [id number] TAKE 1 U nivers (MYRBETRIQ) 3-07 TABLET BY ity of 50 mg 00:00: MOUTH [place] tablet 00 EVERY DAY Medical IN THE [facility] mirabegron Yes [id number] TAKE 1 U nivers (MYRBETRIQ) 3-07 TABLET BY ity of 50 mg 00:00: MOUTH [place] tablet 00 EVERY DAY Medical IN THE [facility] mirabegron Yes [id number] TAKE 1 U nivers (MYRBETRIQ) 3-07 TABLET BY ity of 50 mg 00:00: MOUTH [place] tablet 00 EVERY DAY Medical IN THE [facility] mirabegron Yes [id number] TAKE 1 U nivers (MYRBETRIQ) 3-07 TABLET BY ity of 50 mg 00:00: MOUTH [place] tablet 00 EVERY DAY Medical IN THE [facility] mirabegron Yes [id number] TAKE 1 U nivers (MYRBETRIQ) 3-07 TABLET BY ity of 50 mg 00:00: MOUTH [place] tablet 00 EVERY DAY Medical IN THE [facility] mirabegron Yes [id number] TAKE 1 U nivers (MYRBETRIQ) 3-07 TABLET BY ity of 50 mg 00:00: MOUTH [place] tablet 00 EVERY DAY Medical IN THE [facility] mirabegron Yes [id number] TAKE 1 U nivers (MYRBETRIQ) 3-07 TABLET BY ity of 50 mg 00:00: MOUTH [place] tablet 00 EVERY DAY Medical IN THE [facility] mirabegron Yes [id number] TAKE 1 U nivers (MYRBETRIQ) 3-07 TABLET BY ity of 50 mg 00:00: MOUTH [place] tablet 00 EVERY DAY Medical IN THE [facility] mirabegron Yes [id number] TAKE 1 U nivers (MYRBETRIQ) 3-07 TABLET BY ity of 50 mg 00:00: MOUTH [place] tablet 00 EVERY DAY Medical IN THE [facility] mirabegron Yes [id number] TAKE 1 U nivers (MYRBETRIQ) 3-07 TABLET BY ity of 50 mg 00:00: MOUTH [place] tablet 00 EVERY DAY Medical IN THE [facility] mirabegron Yes [id number] TAKE 1 U nivers (MYRBETRIQ) 3-07 TABLET BY ity of 50 mg 00:00: MOUTH [place] tablet 00 EVERY DAY Medical IN THE [facility] mirabegron Yes [id number] TAKE 1 U nivers (MYRBETRIQ) 3-07 TABLET BY ity of 50 mg 00:00: MOUTH [place] tablet 00 EVERY DAY Medical IN THE [facility] mirabegron Yes [id number] TAKE 1 U nivers (MYRBETRIQ) 3-07 TABLET BY ity of 50 mg 00:00: MOUTH [place] tablet 00 EVERY DAY Medical IN THE [facility] mirabegron Yes [id number] TAKE 1 U nivers (MYRBETRIQ) 3-07 TABLET BY ity of 50 mg 00:00: MOUTH [place] tablet 00 EVERY DAY Medical IN THE [facility] mirabegron Yes [id number] TAKE 1 U nivers (MYRBETRIQ) 3-07 TABLET BY ity of 50 mg 00:00: MOUTH [place] tablet 00 EVERY DAY Medical IN THE [place] MORNING mirabegron 0 Yes [id number] TAKE 1 U nivers (MYRBETRIQ) 3-07 TABLET BY ity of 50 mg 00:00: MOUTH [place] tablet 00 EVERY DAY Medical IN THE [facility] mirabegron 0 Yes [id number] TAKE 1 U nivers (MYRBETRIQ) 3-07 TABLET BY ity of 50 mg 00:00: MOUTH [place] tablet 00 EVERY DAY Medical IN THE [facility] mirabegron 0 Yes [id number] TAKE 1 U nivers (MYRBETRIQ) 3-07 TABLET BY ity of 50 mg 00:00: MOUTH [place] tablet 00 EVERY DAY Medical IN THE [facility] mirabegron Yes [id number] TAKE 1 U nivers (MYRBETRIQ) 3-07 TABLET BY ity of 50 mg 00:00: MOUTH [place] tablet 00 EVERY DAY Medical IN THE [facility] mirabegron Yes [id number] TAKE 1 U nivers (MYRBETRIQ) 3-07 TABLET BY ity of 50 mg 00:00: MOUTH [place] tablet 00 EVERY DAY Medical IN THE [facility] mirabegron Yes [id number] TAKE 1 U nivers (MYRBETRIQ) 3-07 TABLET BY ity of 50 mg 00:00: MOUTH [place] tablet 00 EVERY DAY Medical IN THE [facility] mirabegron 0 Yes [id number] TAKE 1 U nivers (MYRBETRIQ) 3-07 TABLET BY ity of 50 mg 00:00: MOUTH [place] tablet 00 EVERY DAY Medical IN THE [facility] mirabegron 0 Yes [id number] TAKE 1 U nivers (MYRBETRIQ) 3-07 TABLET BY ity of 50 mg 00:00: MOUTH [place] tablet 00 EVERY DAY Medical IN THE [place] MORNING mirabegron 0 Yes [id number] TAKE 1 U nivers (MYRBETRIQ) 3-07 TABLET BY ity of 50 mg 00:00: MOUTH [place] tablet 00 EVERY DAY Medical IN THE [facility] mirabegron 0 Yes [id number] TAKE 1 U nivers (MYRBETRIQ) 3-07 TABLET BY ity of 50 mg 00:00: MOUTH [place] tablet 00 EVERY DAY Medical IN THE [facility] mirabegron Yes [id number] TAKE 1 U nivers (MYRBETRIQ) 3-07 TABLET BY ity of 50 mg 00:00: MOUTH [place] tablet 00 EVERY DAY Medical IN THE [facility] mirabegron Yes [id number] TAKE 1 U nivers (MYRBETRIQ) 3-07 TABLET BY ity of 50 mg 00:00: MOUTH [place] tablet 00 EVERY DAY Medical IN THE [facility] mirabegron Yes [id number] TAKE 1 U nivers (MYRBETRIQ) 3-07 TABLET BY ity of 50 mg 00:00: MOUTH [place] tablet 00 EVERY DAY Medical IN THE [facility] mirabegron Yes [id number] TAKE 1 U nivers (MYRBETRIQ) 3-07 TABLET BY ity of 50 mg 00:00: MOUTH [place] tablet 00 EVERY DAY Medical IN THE [facility] mirabegron Yes [id number] TAKE 1 U nivers (MYRBETRIQ) 3-07 TABLET BY ity of 50 mg 00:00: MOUTH [place] tablet 00 EVERY DAY Medical IN THE [facility] mirabegron Yes [id number] TAKE 1 U nivers (MYRBETRIQ) 3-07 TABLET BY ity of 50 mg 00:00: MOUTH [place] tablet 00 EVERY DAY Medical IN THE [facility] mirabegron Yes [id number] TAKE 1 U nivers (MYRBETRIQ) 3-07 TABLET BY ity of 50 mg 00:00: MOUTH [place] tablet 00 EVERY DAY Medical IN THE [facility] mirabegron Yes [id number] TAKE 1 U nivers (MYRBETRIQ) 3-07 TABLET BY ity of 50 mg 00:00: MOUTH [place] tablet 00 EVERY DAY Medical IN THE [facility] mirabegron Yes [id number] TAKE 1 U nivers (MYRBETRIQ) 3-07 TABLET BY ity of 50 mg 00:00: MOUTH [place] tablet 00 EVERY DAY Medical IN THE [facility] mirabegron 2022- No [id number] TAKE 1 [facility] (MYRBETRIQ) 3-07 09-08 TABLET BY it y of 50 mg 00:00: 00:00 MOUTH [place] tablet 00 :00 EVERY DAY Medical IN THE Branch MORNING mirabegron 2022-0 2023- No [id number] TAKE 1 [facility] (MYRBETRIQ) 3- 09-08 TABLET BY it y of 50 mg 00:00: 00:00 MOUTH [place] tablet 00 :00 EVERY DAY Medical IN THE Branch MORNING LOSARTAN 50 2022-0 Yes [id number] 50mg TAKE 1 U nivers mg tablet 3-06 TABLET BY ity o f 00:00: MOUTH IN [place] 00 THE Medical MORNING Branch AND 1 TABLET IN THE EVENING. LOSARTAN 50 2022-0 Yes [id number] 50mg TAKE 1 U nivers mg tablet 3-06 TABLET BY ity o f 00:00: MOUTH IN [place] 00 THE Medical MORNING Branch AND 1 TABLET IN THE EVENING. LOSARTAN 50 2022-0 Yes [id number] 50mg TAKE 1 U nivers mg tablet 3-06 TABLET BY ity o f 00:00: MOUTH IN [place] 00 THE Medical MORNING Branch AND 1 TABLET IN THE EVENING. LOSARTAN 50 2022-0 Yes [id number] 50mg TAKE 1 U nivers mg tablet 3-06 TABLET BY ity o f 00:00: MOUTH IN [place] 00 THE Medical MORNING Branch AND 1 TABLET IN THE EVENING. LOSARTAN 50 2022-0 Yes [id number] 50mg TAKE 1 U nivers mg tablet 3-06 TABLET BY ity o f 00:00: MOUTH IN [place] 00 THE Medical MORNING Branch AND 1 TABLET IN THE EVENING. LOSARTAN 50 2022-0 Yes [id number] 50mg TAKE 1 U nivers mg tablet 3-06 TABLET BY ity o f 00:00: MOUTH IN [place] 00 THE Medical MORNING Branch AND 1 TABLET IN THE EVENING. LOSARTAN 50 2022-0 Yes [id number] 50mg TAKE 1 U nivers mg tablet 3-06 TABLET BY ity o f 00:00: MOUTH IN [place] 00 THE Medical MORNING Branch AND 1 TABLET IN THE EVENING. LOSARTAN 50 2022-0 Yes [id number] 50mg TAKE 1 U nivers mg tablet 3-06 TABLET BY ity o f 00:00: MOUTH IN [place] [address] THE Medical MORNING Branch AND 1 TABLET IN THE EVENING. LOSARTAN 50 2022-0 Yes [id number] 50mg TAKE 1 U nivers mg tablet 3-06 TABLET BY ity o f 00:00: MOUTH IN [place] 00 THE Medical MORNING Branch AND 1 TABLET IN THE EVENING. LOSARTAN 50 2022-0 Yes [id number] 50mg TAKE 1 U nivers mg tablet 3-06 TABLET BY ity o f 00:00: MOUTH IN [place] 00 THE Medical MORNING Branch AND 1 TABLET IN THE EVENING. LOSARTAN 50 3-0 Yes [id number] 50mg TAKE 1 U nivers mg tablet 3-06 TABLET BY ity o f 00:00: MOUTH IN [place] 00 THE Medical MORNING Branch AND 1 TABLET IN THE EVENING. LOSARTAN 50 3-0 Yes [id number] 50mg TAKE 1 U nivers mg tablet 3-06 TABLET BY ity o f 00:00: MOUTH IN [place] 00 THE Medical MORNING Branch AND 1 TABLET IN THE EVENING. LOSARTAN 50 3-0 Yes [id number] 50mg TAKE 1 U nivers mg tablet 3-06 TABLET BY ity o f 00:00: MOUTH IN [place] 00 THE Medical MORNING Branch AND 1 TABLET IN THE EVENING. LOSARTAN 50 3-0 Yes [id number] 50mg TAKE 1 U nivers mg tablet 3-06 TABLET BY ity o f 00:00: MOUTH IN [place] 00 THE Medical MORNING Branch AND 1 TABLET IN THE EVENING. LOSARTAN 50 2022-0 Yes [id number] 50mg TAKE 1 U nivers mg tablet 3-06 TABLET BY ity o f 00:00: MOUTH IN [place] 00 THE Medical MORNING Branch AND 1 TABLET IN THE EVENING. LOSARTAN 50 3-0 Yes [id number] 50mg TAKE 1 U nivers mg tablet 3-06 TABLET BY ity o f 00:00: MOUTH IN [place] 00 THE Medical MORNING Branch AND 1 TABLET IN THE EVENING. LOSARTAN 50 3-0 Yes [id number] 50mg TAKE 1 U nivers mg tablet 3-06 TABLET BY ity o f 00:00: MOUTH IN [place] 00 THE Medical MORNING Branch AND 1 TABLET IN THE EVENING. LOSARTAN 50 3-0 2023- No [id number] 50mg TAKE 1 [facility] mg tablet 3-10 07- TABLET BY ity of 00:00: 00:00 MOUTH IN [place] 00 :00 THE Medical MORNING Branch AND 1 TABLET IN THE EVENING. LOSARTAN 50 3-0 2023- No [id number] 50mg TAKE 1 [facility] mg tablet 3-10 07- TABLET BY ity of 00:00: 00:00 MOUTH IN [place] 00 :00 THE Medical MORNING Branch AND 1 TABLET IN THE EVENING. LOSARTAN 50 3-0 2023- No [id number] 50mg TAKE 1 [facility] mg tablet 3-10 07- TABLET BY ity of 00:00: 00:00 MOUTH IN [place] 00 :00 THE Medical MORNING Branch AND 1 TABLET [...] EVERYDAY Medical AT BEDTIME Branch ATORVASTATI 2022-0 2023- No TAKE 1 Uni vers N 80 mg 3-03 07-12 TABLET BY ity of tablet 00:00: 00:00 MOUTH [place] 00 :00 EVERYDAY Medical AT BEDTIME Branch metFORMIN 3-0 Yes [id number] 500mg Take 1 [facility] 500 mg 3-01 tablet by ity of tablet 00:00: mouth in [place] 00 the Medical morning Branch and 1 tablet in the evening. Take with meals. metFORMIN 3-0 Yes [id number] 500mg Take 1 [facility] 500 mg 3-01 tablet by ity of tablet 00:00: mouth in [place] 00 the Medical morning Branch and 1 tablet in the evening. Take with meals. metFORMIN 3-0 Yes [id number] 500mg Take 1 [facility] 500 mg 3-01 tablet by ity of tablet 00:00: mouth in [place] 00 the Medical morning Branch and 1 tablet in the evening. Take with meals. metFORMIN 3-0 Yes [id number] 500mg Take 1 [facility] 500 mg 3-01 tablet by ity of tablet 00:00: mouth in [place] 00 the Medical morning Branch and 1 tablet in the evening. Take with meals. metFORMIN 2023-0 Yes [id number] 500mg Take 1 [facility] 500 mg 3-01 tablet by ity of tablet 00:00: mouth in [place] [address] the Medical morning Branch and 1 tablet in the evening. Take with meals. metFORMIN 2023-0 Yes [id number] 500mg Take 1 [facility] 500 mg 3-01 tablet by ity of tablet 00:00: mouth in [address] and 1 tablet in the evening. Take with meals. metFORMIN 2023-0 Yes [id number] 500mg Take 1 [facility] 500 mg 3-01 tablet by ity of tablet 00:00: mouth in [address] and 1 tablet in the evening. Take with meals. metFORMIN 2023-0 Yes [id number] 500mg Take 1 [facility] 500 mg 3-01 tablet by ity of tablet 00:00: mouth in [address] and 1 tablet in the evening. Take with meals. metFORMIN 2023-0 Yes [id number] 500mg Take 1 [facility] 500 mg 3-01 tablet by ity of tablet 00:00: mouth in [address] and 1 tablet in the evening. Take with meals. metFORMIN 2023-0 Yes [id number] 500mg Take 1 [facility] 500 mg 3-01 tablet by ity of tablet 00:00: mouth in [address] and 1 tablet in the evening. Take with meals. metFORMIN 2023-0 Yes [id number] 500mg Take 1 [facility] 500 mg 3-01 tablet by ity of tablet 00:00: mouth in [address] and 1 tablet in the evening. Take with meals. metFORMIN 2023-0 Yes [id number] 500mg Take 1 [facility] 500 mg 3-01 tablet by ity of tablet 00:00: mouth in [address] and 1 tablet in the evening. Take with meals. metFORMIN 2023-0 Yes [id number] 500mg Take 1 [facility] 500 mg 3-01 tablet by ity of tablet 00:00: mouth in [address] and 1 tablet in the evening. Take with meals. metFORMIN 2023-0 Yes [id number] 500mg Take 1 [facility] 500 mg 3-01 tablet by ity of tablet 00:00: mouth in [address] and 1 tablet in the evening. Take with meals. metFORMIN 2023-0 Yes [id number] 500mg Take 1 [facility] 500 mg 3-01 tablet by ity of tablet 00:00: mouth in [address] and 1 tablet in the evening. Take with meals. metFORMIN 2023-0 Yes [id number] 500mg Take 1 [facility] 500 mg 3-01 tablet by ity of tablet 00:00: mouth in [place] 00 the Medical morning Branch and 1 tablet in the evening. Take with meals. metFORMIN 2023-0 Yes [id number] 500mg Take 1 [facility] 500 mg 3-01 tablet by ity of tablet 00:00: mouth in [place] [address] the [facility] morning [place] and 1 tablet in the evening. Take with meals. metFORMIN 2023-0 Yes [id number] 500mg Take 1 [facility] 500 mg 3-01 tablet by ity of tablet 00:00: mouth in [address] morning [place] and 1 tablet in the evening. Take with meals. metFORMIN 2023-0 Yes [id number] 500mg Take 1 [facility] 500 mg 3-01 tablet by ity of tablet 00:00: mouth in [address] morning [place] and 1 tablet in the evening. Take with meals. metFORMIN 2023-0 Yes [id number] 500mg Take 1 [facility] 500 mg 3-01 tablet by ity of tablet 00:00: mouth in [address] morning [place] and 1 tablet in the evening. Take with meals. metFORMIN 2023-0 Yes [id number] 500mg Take 1 [facility] 500 mg 3-01 tablet by ity of tablet 00:00: mouth in [address] morning [place] and 1 tablet in the evening. Take with meals. metFORMIN 2023-0 Yes [id number] 500mg Take 1 [facility] 500 mg 3-01 tablet by ity of tablet 00:00: mouth in [address] morning [place] and 1 tablet in the evening. Take with meals. metFORMIN 2023-0 Yes [id number] 500mg Take 1 [facility] 500 mg 3-01 tablet by ity of tablet 00:00: mouth in [address] morning [place] and 1 tablet in the evening. Take with meals. metFORMIN 2023-0 Yes [id number] 500mg Take 1 [facility] 500 mg 3-01 tablet by ity of tablet 00:00: mouth in [address] morning [place] and 1 tablet in the evening. Take with meals. metFORMIN 2023-0 Yes [id number] 500mg Take 1 [facility] 500 mg 3-01 tablet by ity of tablet 00:00: mouth in [address] morning [place] and 1 tablet in the evening. Take with meals. metFORMIN 2023-0 Yes [id number] 500mg Take 1 [facility] 500 mg 3-01 tablet by ity of tablet 00:00: mouth in [address] morning [place] and 1 tablet in the evening. Take with meals. metFORMIN 2023-0 2023- No [id number] 500mg Take 1 [facility] 500 mg 07-01 tablet by ity of tablet 00:00: 00:00 mouth in [place] 00 :00 the Medical morning Branch and 1 tablet in the evening. Take with meals. metFORMIN 2022- No [id number] 500mg Take 1 [facility] 500 mg 07-01 tablet by ity of tablet 00:00: 00:00 mouth in [place] 00 :00 the Medical morning Branch and 1 tablet in the evening. Take with meals. SAXENDA 3 Yes [id number] INJECT U nivers mg/0.5 mL 2-23 0.6MG ity of (18 mg/3 00:00: SUBCUTANEO [place] mL) PnIj 00 USLY EVERY Medic al MORNING. Branch INCREASE AT WEEKLY INTERVALS UNTIL TARGET DOSE OF 3MG SAXENDA 3 2022- No [id number] INJECT [facility] mg/0.5 mL 06-25 03-03 0.6MG ity of (18 mg/3 00:00: 00:00 SUBCUTANEO [place] mL) PnIj 00 :00 USLY EVERY Medic al MORNING. Branch INCREASE AT WEEKLY INTERVALS UNTIL TARGET DOSE OF 3MG SAXENDA 3 2022- No [id number] INJECT [facility] mg/0.5 mL 06-25 03-03 0.6MG ity of (18 mg/3 00:00: 00:00 SUBCUTANEO [place] mL) PnIj 00 :00 USLY EVERY Medic al MORNING. Branch INCREASE AT WEEKLY INTERVALS UNTIL TARGET DOSE OF 3MG SAXENDA 3 2022- No [id number] INJECT [facility] mg/0.5 mL 06-25 03-03 0.6MG ity of (18 mg/3 00:00: 00:00 SUBCUTANEO [place] mL) PnIj 00 :00 USLY EVERY Medic al MORNING. Branch INCREASE AT WEEKLY INTERVALS UNTIL TARGET DOSE OF 3MG liraglutide Yes [id number] .6mg inject 0.6 [facility] , weight 2-22 mg under ity of loss, 3 00:00: the skin [place] mg/0.5 mL 00 in the Medical (18 mg/3 morning. Branch mL) PnIj Increase by 0.6 mg at weekly intervals until a target dose of 3 mg liraglutide 0 202- No [id number] .6mg inject 0.6 [facility] , weight 2-22 02-23 mg under ity of loss, 3 00:00: 00:00 the skin [place] mg/0.5 mL 00 :00 in the Medical (18 mg/3 morning. Branch mL) PnIj Increase by 0.6 mg at weekly intervals until a target dose of 3 mg naltrexone- 2022-0 Yes [id number] Take one [facility] bupropion 2-06 tablet by ity o f (CONTRAVE) 00:00: mouth in [place] 8-90 mg per 00 the Medical tablet morning Branch for week 1, then one tablet twice a day for week 2 and on naltrexone- 2022-0 Yes [id number] Take one [facility] bupropion 2-06 tablet by ity o f (CONTRAVE) 00:00: mouth in [place] 8-90 mg per 00 the Medical tablet morning Branch for week 1, then one tablet twice a day for week 2 and on naltrexone- 2022-0 Yes [id number] Take one [facility] bupropion 2-06 tablet by ity o f (CONTRAVE) 00:00: mouth in [place] 8-90 mg per 00 the Medical tablet morning Branch for week 1, then one tablet twice a day for week 2 and on naltrexone- 2022-0 Yes [id number] Take one [facility] bupropion 2-06 tablet by ity o f (CONTRAVE) 00:00: mouth in [place] 8-90 mg per 00 the Medical tablet morning Branch for week 1, then one tablet twice a day for week 2 and on naltrexone- 2022-0 Yes [id number] Take one [facility] bupropion 2-06 tablet by ity o f (CONTRAVE) 00:00: mouth in [place] 8-90 mg per 00 the Medical tablet morning Branch for week 1, then one tablet twice a day for week 2 and on naltrexone- 2022-0 Yes [id number] Take one [facility] bupropion 2-06 tablet by ity o f (CONTRAVE) 00:00: mouth in [place]-90 mg per 00 the Medical tablet morning Branch for week 1, then one tablet twice a day for week 2 and on naltrexone- 2022-0 Yes [id number] Take one [facility] bupropion 2-06 tablet by ity o f (CONTRAVE) 00:00: mouth in [place]-90 mg per 00 the Medical tablet morning Branch for week 1, then one tablet twice a day for week 2 and on naltrexone- 2023-0 Yes [id number] Take one [facility] bupropion 2-06 tablet by ity o f (CONTRAVE) 00:00: mouth in [place] 8-90 mg per 00 the Medical tablet morning Branch for week 1, then one tablet twice a day for week 2 and on naltrexone- 2023-0 Yes [id number] Take one [facility] bupropion 2-06 tablet by ity o f (CONTRAVE) 00:00: mouth in [place] 8-90 mg per 00 the Medical tablet morning Branch for week 1, then one tablet twice a day for week 2 and on naltrexone- 3-0 Yes [id number] Take one [facility] bupropion 2-06 tablet by ity o f (CONTRAVE) 00:00: mouth in [place] 8-90 mg per 00 the Medical tablet morning Branch for week 1, then one tablet twice a day for week 2 and on naltrexone- 2023-0 2023- No [id number] Take one [facility] bupropion 2-06 02-22 tablet by ity of (CONTRAVE) 00:00: 00:00 mouth in [place] 8-90 mg per 00 :00 the Medical tablet morning Branch for week 1, then one tablet twice a day for week 2 and on naltrexone- 2023-0 2023- No [id number] Take one [facility] bupropion 2-06 02-22 tablet by ity of (CONTRAVE) 00:00: 00:00 mouth in [place] 8-90 mg per 00 :00 the Medical tablet morning Branch for week 1, then one tablet twice a day for week 2 and on naltrexone- 2023-0 2023- No [id number] Take one [facility] bupropion 2-06 02-22 tablet by ity of (CONTRAVE) 00:00: 00:00 mouth in [place] 8-90 mg per 00 :00 the Medical tablet morning Branch for week 1, then one tablet twice a day for week 2 and on NIFEdipine 2022-0 Yes 30mg Take 30 mg U nivers XL 30 mg 24 1-21 by mouth ity of hr tablet 00:00: in the 00 morning Medical and 30 mg Branch in the evening. NIFEdipine 2023-0 Yes 30mg Take 30 mg U nivers XL 30 mg 24 1-21 by mouth ity of hr tablet 00:00: in the [place] morning Medical and 30 mg Branch in the evening. NIFEdipine 2023-0 Yes 30mg Take 30 mg U nivers XL 30 mg 24 1-21 by mouth ity of hr tablet 00:00: in the [place] morning Medical and 30 mg Branch in the evening. NIFEdipine 2023-0 Yes 30mg Take 30 mg U nivers XL 30 mg 24 1-21 by mouth ity of hr tablet 00:00: in the [place] morning Medical and 30 mg Branch in the evening. NIFEdipine 2023-0 Yes 30mg Take 30 mg U nivers XL 30 mg 24 1-21 by mouth ity of hr tablet 00:00: in the [place] morning Medical and 30 mg Branch in the evening. NIFEdipine 2023-0 Yes 30mg Take 30 mg U nivers XL 30 mg 24 1-21 by mouth ity of hr tablet 00:00: in the [place] morning Medical and 30 mg Branch in the evening. NIFEdipine 2023-0 Yes 30mg Take 30 mg U nivers XL 30 mg 24 1-21 by mouth ity of hr tablet 00:00: in the [place] morning Medical and 30 mg Branch in the evening. NIFEdipine 2023-0 Yes 30mg Take 30 mg U nivers XL 30 mg 24 1-21 by mouth ity of hr tablet 00:00: in the [place] morning Medical and 30 mg Branch in the evening. NIFEdipine 2023-0 Yes 30mg Take 30 mg U nivers XL 30 mg 24 1-21 by mouth ity of hr tablet 00:00: in the [place] morning Medical and 30 mg Branch in the evening. NIFEdipine 2023-0 Yes 30mg Take 30 mg U nivers XL 30 mg 24 1-21 by mouth ity of hr tablet 00:00: in the [place] morning Medical and 30 mg Branch in the evening. NIFEdipine 2023-0 Yes 30mg Take 30 mg U nivers XL 30 mg 24 1-21 by mouth ity of hr tablet 00:00: in the [place] morning Medical and 30 mg Branch in the evening. NIFEdipine 2023-0 Yes 30mg Take 30 mg U nivers XL 30 mg 24 1-21 by mouth ity of hr tablet 00:00: in the [place] 00 morning Medical and 30 mg Branch in the evening. NIFEdipine 2023-0 Yes 30mg Take 30 mg U nivers XL 30 mg 24 1-21 by mouth ity of hr tablet 00:00: in the morning Medical and 30 mg Branch in the evening. NIFEdipine 2023-0 Yes 30mg Take 30 mg U nivers XL 30 mg 24 1-21 by mouth ity of hr tablet 00:00: in the [place] morning Medical and 30 mg Branch in the evening. NIFEdipine 2023-0 Yes 30mg Take 30 mg U nivers XL 30 mg 24 1-21 by mouth ity of hr tablet 00:00: in the [place] morning Medical and 30 mg Branch in the evening. NIFEdipine 2023-0 Yes 30mg Take 30 mg U nivers XL 30 mg 24 1-21 by mouth ity of hr tablet 00:00: in the [place] morning Medical and 30 mg Branch in the evening. NIFEdipine 2023-0 Yes 30mg Take 30 mg U nivers XL 30 mg 24 1-21 by mouth ity of hr tablet 00:00: in the [place] morning Medical and 30 mg Branch in the evening. NIFEdipine 2023-0 Yes 30mg Take 30 mg U nivers XL 30 mg 24 1-21 by mouth ity of hr tablet 00:00: in the [place] morning Medical and 30 mg Branch in the evening. NIFEdipine 2023-0 Yes 30mg Take 30 mg U nivers XL 30 mg 24 1-21 by mouth ity of hr tablet 00:00: in the [place] morning Medical and 30 mg Branch in the evening. NIFEdipine 2023-0 Yes 30mg Take 30 mg U nivers XL 30 mg 24 1-21 by mouth ity of hr tablet 00:00: in the [place] morning Medical and 30 mg Branch in [...] tablet in the evening. semaglutide 2021-05 Yes [id number] .25mg inject [facility] , weight 2-05 0.25 mg ity of loss, 0.25 00:00: under the [place] mg/0.5 mL 00 skin Medical PnIj [place] weekly. Branch injection Weeks through 8 inject 0.5 mg under the skin weekly semaglutide 2021-05 Yes [id number] .25mg inject [facility] , weight 2-05 0.25 mg ity of loss, 0.25 00:00: under the [place] mg/0.5 mL 00 skin Medical PnIj [place] weekly. Branch injection Weeks through 8 inject 0.5 mg under the skin weekly semaglutide 2021-05 Yes [id number] .25mg inject [facility] , weight 2-05 0.25 mg ity of loss, 0.25 00:00: under the [place] mg/0.5 mL 00 skin Medical PnIj [place] weekly. Branch injection Weeks through 8 inject 0.5 mg under the skin weekly semaglutide 2021-05 Yes [id number] .25mg inject [facility] , weight 2-05 0.25 mg ity of loss, 0.25 00:00: under the [place] mg/0.5 mL 00 skin Medical PnIj [place] weekly. Branch injection Weeks through 8 inject 0.5 mg under the skin weekly semaglutide 2021-05 Yes [id number] .25mg inject [facility] , weight 2-05 0.25 mg ity of loss, 0.25 00:00: under the [place] mg/0.5 mL 00 skin Medical PnIj [place] weekly. Branch injection Weeks through 8 inject 0.5 mg under the skin weekly semaglutide 2021-05 Yes [id number] .25mg inject [facility] , weight 2-05 0.25 mg ity of loss, 0.25 00:00: under the [place] mg/0.5 mL 00 skin Medical PnIj [place] weekly. Branch injection Weeks through 8 inject 0.5 mg under the skin weekly semaglutide 2021-05 Yes [id number] .25mg inject [facility] , weight 2-05 0.25 mg ity of loss, 0.25 00:00: under the [place] mg/0.5 mL 00 skin Medical PnIj [place] weekly. Branch injection Weeks through 8 inject 0.5 mg under the skin weekly semaglutide 2021-05 Yes [id number] .25mg inject [facility] , weight 2-05 0.25 mg ity of loss, 0.25 00:00: under the [place] mg/0.5 mL 00 skin Medical PnIj [place] weekly. Branch injection Weeks through 8 inject 0.5 mg under the skin weekly semaglutide 2021-05 Yes [id number] .25mg inject [facility] , weight 2-05 0.25 mg ity of loss, 0.25 00:00: under the [place] mg/0.5 mL 00 skin Medical PnIj [place] weekly. Branch injection Weeks through 8 inject 0.5 mg under the skin weekly semaglutide 2021-05- No [id number] .25mg inject [facility] , weight 2-05 02-06 0.25 mg ity of loss, 0.25 00:00: 00:00 under the [place] mg/0.5 mL 00 :00 skin Medical PnIj [place] weekly. Branch injection Weeks 5 through 8 inject 0.5 mg under the skin weekly semaglutide 2021-05- No [id number] .25mg inject [facility] , weight 2-06 0.25 mg ity of loss, 0.25 00:00: 00:00 under the [place] mg/0.5 mL 00 :00 skin Medical PnIj [place] weekly. Branch injection Weeks 5 through 8 inject 0.5 mg under the skin weekly semaglutide 2021-05- No [id number] .25mg inject [facility] , weight 2-06 0.25 mg ity of loss, 0.25 00:00: 00:00 under the [place] mg/0.5 mL 00 :00 skin Medical PnIj [place] weekly. Branch injection Weeks 5 through 8 inject 0.5 mg under the skin weekly LOSARTAN 50 2021-05 Yes [id number] TAKE 1 [facility] mg tablet 0-25 TABLET BY ity o f 00:00: MOUTH [place] 00 EVERY DAY Medical Branch losartan 50 2021-05 Yes [id number] 50mg Take 1 [facility] n[facility] mg tablet 0-25 tablet by ity o f 00:00: mouth in [place] 00 the Medical morning Branch and 1 tablet in the evening. losartan 50 2021-05 Yes [id number] 50mg Take 1 [facility] mg tablet 0-25 tablet by ity o f 00:00: mouth in [place] 00 the Medical morning Branch and 1 tablet in the evening. losartan 50 2021-05 Yes [id number] 50mg Take 1 [facility] mg tablet 0-25 tablet by ity o f 00:00: mouth in [place] 00 the Medical morning Branch and 1 tablet in the evening. losartan 50 2021-05 Yes [id number] 50mg Take 1 [facility] mg tablet 0-25 tablet by ity o f 00:00: mouth in [place] 00 the Medical morning Branch and 1 tablet in the evening. losartan 50 2021-05 Yes [id number] 50mg Take 1 [facility] mg tablet 0-25 tablet by ity o f 00:00: mouth in [place] 00 the Medical morning Branch and 1 tablet in the evening. losartan 50 2021-05 Yes [id number] 50mg Take 1 [facility] mg tablet 0-25 tablet by ity o f 00:00: mouth in [place] 00 the Medical morning Branch and 1 tablet in the evening. losartan 50 2021-05 Yes [id number] 50mg Take 1 [facility] mg tablet 0-25 tablet by ity o f 00:00: mouth in [place] 00 the Medical morning Branch and 1 tablet in the evening. losartan 50 2021-05 Yes [id number] 50mg Take 1 [facility] mg tablet 0-25 tablet by ity o f 00:00: mouth in [place] 00 the Medical morning Branch and 1 tablet in the evening. losartan 50 2021-05 Yes [id number] 50mg Take 1 [facility] mg tablet 0-25 tablet by ity o f 00:00: mouth in [place] 00 the Medical morning Branch and 1 tablet in the evening. losartan 50 2021-05 Yes [id number] 50mg Take 1 [facility] mg tablet 0-25 tablet by ity o f 00:00: mouth in [place] 00 the Medical morning Branch and 1 tablet in the evening. losartan 50 2021-05 Yes [id number] 50mg Take 1 [facility] mg tablet 0-25 tablet by ity o f 00:00: mouth in [place] 00 the Medical morning Branch and 1 tablet in the evening. losartan 50 2021-05 Yes [id number] 50mg Take 1 [facility] mg tablet 0-25 tablet by ity o f 00:00: mouth in [place] 00 the Medical morning Branch and 1 tablet in the evening. losartan 50 2021-05 Yes [id number] 50mg Take 1 [facility] mg tablet 0-25 tablet by ity o f 00:00: mouth in [place] 00 the Medical morning Branch and 1 tablet in the evening. losartan 50 2021-05 Yes [id number] 50mg Take 1 [facility] mg tablet 0-25 tablet by ity o f 00:00: mouth in [place] 00 the Medical morning Branch and 1 tablet in the evening. losartan 50 2021-05 Yes [id number] 50mg Take 1 [facility] mg tablet 0-25 tablet by ity o f 00:00: mouth in [place] 00 the Medical morning Branch and 1 tablet in the evening. losartan 50 2021-05 Yes [id number] 50mg Take 1 [facility] mg tablet 0-25 tablet by ity o f 00:00: mouth in [place] 00 the Medical morning Branch and 1 tablet in the evening. losartan 50 2021-05 Yes [id number] 50mg Take 1 [facility] mg tablet 0-25 tablet by ity o f 00:00: mouth in [place] 00 the Medical morning Branch and 1 tablet in the evening. losartan 50 2021-05 Yes [id number] 50mg Take 1 [facility] mg tablet 0-25 tablet by ity o f 00:00: mouth in [place] 00 the Medical morning Branch and 1 tablet in the evening. losartan 50 2021-05 Yes [id number] 50mg Take 1 [facility] mg tablet 0-25 tablet by ity o f 00:00: mouth in [place] 00 the Medical morning Branch and 1 tablet in the evening. losartan 50 2021-05 Yes [id number] 50mg Take 1 [facility] mg tablet 0-25 tablet by ity o f 00:00: mouth in [place] 00 the Medical morning Branch and 1 tablet in the evening. losartan 50 2021-05 Yes [id number] 50mg Take 1 [facility] mg tablet 0-25 tablet by ity o f 00:00: mouth in [place] 00 the Medical morning Branch and 1 tablet in the evening. losartan 50 2021-05 Yes [id number] 50mg Take 1 [facility] mg tablet 0-25 tablet by ity o f 00:00: mouth in [place] 00 the Medical morning Branch and 1 tablet in the evening. losartan 50 2021-05 Yes [id number] 50mg Take 1 [facility] mg tablet 0-25 tablet by ity o f 00:00: mouth in [place] 00 the Medical morning Branch and 1 tablet in the evening. losartan 50 2021-05 Yes [id number] 50mg Take 1 [facility] mg tablet 0-25 tablet by ity o f 00:00: mouth in [place] 00 the Medical morning Branch and 1 tablet in the evening. losartan 50 2021-05 Yes [id number] 50mg Take 1 [facility] mg tablet 0-25 tablet by ity o f 00:00: mouth in [place] 00 the Medical morning Branch and 1 tablet in the evening. losartan 50 2021-05 Yes [id number] 50mg Take 1 [facility] mg tablet 0-25 tablet by ity o f 00:00: mouth in [place] 00 the Medical morning Branch and 1 tablet in the evening. losartan 50 2021-05 Yes [id number] 50mg Take 1 [facility] mg tablet 0-25 tablet by ity o f 00:00: mouth in [place] 00 the Medical morning Branch and 1 tablet in the evening. losartan 50 2021-05 Yes [id number] 50mg Take 1 [facility] mg tablet 0-25 tablet by ity o f 00:00: mouth in [place] 00 the Medical morning Branch and 1 tablet in the evening. losartan 50 2021-05 Yes [id number] 50mg Take 1 [facility] mg tablet 0-25 tablet by ity o f 00:00: mouth in [place] 00 the Medical morning Branch and 1 tablet in the evening. losartan 50 2021-05 Yes [id number] 50mg Take 1 [facility] mg tablet 0-25 tablet by ity o f 00:00: mouth in [place] 00 the Medical morning Branch and 1 tablet in the evening. losartan 50 2021-05 Yes [id number] 50mg Take 1 [facility] mg tablet 0-25 tablet by ity o f 00:00: mouth in [place] 00 the Medical morning Branch and 1 tablet in the evening. losartan 50 2021-05 Yes [id number] 50mg Take 1 [facility] mg tablet 0-25 tablet by ity o f 00:00: mouth in [place] 00 the Medical morning Branch and 1 tablet in the evening. losartan 50 2021-05- No [id number] 50mg Take 1 [facility] mg tablet 0-25 03-06 tablet by ity of 00:00: 00:00 mouth in [place] 00 :00 the Medical morning Branch and 1 tablet in the evening. losartan 50 2021-05- No [id number] 50mg Take 1 [facility] mg tablet 0-25 03-06 tablet by ity of 00:00: 00:00 mouth in [place] 00 :00 the Medical morning Branch and 1 tablet in the evening. LOSARTAN 50 2021-2021- No [id number] TAKE 1 [facility] mg tablet 0-25 10-25 TABLET BY ity of 00:00: 00:00 MOUTH [place] 00 :00 EVERY DAY Medical Branch METFORMIN 2022-0 Yes [id number] TAKE 1 [facility] nivers 500 mg 9-14 TABLET BY ity of tablet 00:00: MOUTH [place] 00 TWICE A Medical DAY WITH Branch MEALS METFORMIN 2-0 Yes [id number] TAKE 1 [facility] nivers 500 mg 9-14 TABLET BY ity of tablet 00:00: MOUTH [place] 00 TWICE A Medical DAY WITH Branch MEALS METFORMIN 2022-0 Yes [id number] TAKE 1 [facility] nivers 500 mg 9-14 TABLET BY ity of tablet 00:00: MOUTH [place] 00 TWICE A Medical DAY WITH Branch MEALS METFORMIN 2022-0 Yes [id number] TAKE 1 [facility] nivers 500 mg 9-14 TABLET BY ity of tablet 00:00: MOUTH 00 TWICE A Medical DAY WITH Branch MEALS METFORMIN 2022-0 Yes [id number] TAKE 1 [facility] n[facility] 500 mg 9-14 TABLET BY ity of tablet 00:00: MOUTH 00 TWICE A Medical DAY WITH Branch MEALS METFORMIN 2022-0 Yes [id number] TAKE 1 [facility] n[facility] 500 mg 9-14 TABLET BY ity of tablet 00:00: MOUTH 00 TWICE A Medical DAY WITH Branch MEALS METFORMIN 2022-0 Yes [id number] TAKE 1 [facility] 500 mg 9-14 TABLET BY ity of tablet 00:00: MOUTH 00 TWICE A Medical DAY WITH Branch MEALS METFORMIN 2022-0 Yes [id number] TAKE 1 [facility] n[facility] 500 mg 9-14 TABLET BY ity of tablet 00:00: MOUTH 00 TWICE A Medical DAY WITH Branch MEALS METFORMIN 2022-0 Yes [id number] TAKE 1 [facility] 500 mg 9-14 TABLET BY ity of tablet 00:00: MOUTH 00 TWICE A Medical DAY WITH Branch MEALS METFORMIN 2022-0 Yes [id number] TAKE 1 [facility] 500 mg 9-14 TABLET BY ity of tablet 00:00: MOUTH 00 TWICE A Medical DAY WITH Branch MEALS METFORMIN 2022-0 Yes [id number] TAKE 1 [facility] 500 mg 9-14 TABLET BY ity of tablet 00:00: MOUTH 00 TWICE A Medical DAY WITH Branch MEALS METFORMIN 2022-0 Yes [id number] TAKE 1 [facility] 500 mg 9-14 TABLET BY ity of tablet 00:00: MOUTH 00 TWICE A Medical DAY WITH Branch MEALS METFORMIN 2022-0 Yes [id number] TAKE 1 [facility] 500 mg 9-14 TABLET BY ity of tablet 00:00: MOUTH 00 TWICE A Medical DAY WITH Branch MEALS METFORMIN 2022-0 Yes [id number] TAKE 1 [facility] 500 mg 9-14 TABLET BY ity of tablet 00:00: MOUTH 00 TWICE A Medical DAY WITH Branch MEALS METFORMIN 2022-0 Yes [id number] TAKE 1 [facility] 500 mg 9-14 TABLET BY ity of tablet 00:00: MOUTH 00 TWICE A Medical DAY WITH Branch MEALS METFORMIN 2022-0 Yes [id number] TAKE 1 [facility] nivers 500 mg 9-14 TABLET BY ity of tablet 00:00: MOUTH [place] 00 TWICE A Medical DAY WITH Branch MEALS METFORMIN 2021-0 Yes [id number] TAKE 1 [facility] nivers 500 mg 9-14 TABLET BY ity of tablet 00:00: MOUTH 00 TWICE A Medical DAY WITH Branch MEALS METFORMIN 2021-0 3- No [id number] TAKE 1 [facility] 500 mg 9-14 02-06 TABLET BY ity of tablet 00:00: 00:00 MOUTH [place] 00 :00 TWICE A Medical DAY WITH Branch MEALS METFORMIN 2021-0 3- No [id number] TAKE 1 [facility] 500 mg 9-14 -06 TABLET BY ity of tablet 00:00: 00:00 MOUTH [place] 00 :00 TWICE A Medical DAY WITH Branch MEALS METFORMIN 2021-0 3- No [id number] TAKE 1 [facility] 500 mg 9-14 -06 TABLET BY ity of tablet 00:00: 00:00 MOUTH [place] 00 :00 TWICE A Medical DAY WITH Branch MEALS ATORVASTATI 2021-0 Yes TAKE 1 [facility] ers [...] TAKE 1 [facility] vers N 80 mg 9-01 03- TABLET BY ity of tablet 00:00: 00:00 MOUTH [place] 00 :00 EVERYDAY Medical AT BEDTIME Branch ATORVASTATI 2-0 3- No TAKE 1 [facility] vers N 80 mg 9-01 03- TABLET BY ity of tablet 00:00: 00:00 MOUTH [place] 00 :00 EVERYDAY Medical AT BEDTIME Branch ATORVASTATI 0 2022- No TAKE 1 [facility] vers N 80 mg 01-09 TABLET BY ity of tablet 00:00: 00:00 MOUTH [place] 00 :00 EVERYDAY Medical AT BEDTIME Branch ATORVASTATI 2021-0 2022- No TAKE 1 [facility] vers N 80 mg 01-09 TABLET BY ity of tablet 00:00: 00:00 MOUTH [place] 00 :00 EVERYDAY Medical AT BEDTIME Branch mirabegron 2021-0 Yes [id number] 50mg Take 1 [facility] nivers (MYRBETRIQ) 8-22 tablet by ity of 50 mg 00:00: mouth in [place] tablet 00 the Medical morning. Branch mirabegron 2021-0 Yes [id number] 50mg Take 1 [facility] nivers (MYRBETRIQ) 8-22 tablet by ity of 50 mg 00:00: mouth in [place] tablet 00 the Medical morning. Branch mirabegron 2021-0 Yes [id number] 50mg Take 1 [facility] nivers (MYRBETRIQ) 8-22 tablet by ity of 50 mg 00:00: mouth in [place] tablet 00 the Medical morning. Branch mirabegron 2021-0 Yes [id number] 50mg Take 1 [facility] nivers (MYRBETRIQ) 8-22 tablet by ity of 50 mg 00:00: mouth in [place] tablet 00 the Medical morning. Branch mirabegron 2-0 Yes [id number] 50mg Take 1 [facility] nivers (MYRBETRIQ) 8-22 tablet by ity of 50 mg 00:00: mouth in [place] tablet 00 the Medical morning. Branch mirabegron 2021-0 Yes [id number] 50mg Take 1 [facility] nivers (MYRBETRIQ) 8-22 tablet by ity of 50 mg 00:00: mouth in [place] tablet 00 the Medical morning. Branch mirabegron 2-0 Yes [id number] 50mg Take 1 [facility] nivers (MYRBETRIQ) 8-22 tablet by ity of 50 mg 00:00: mouth in [place] tablet 00 the Medical morning. Branch mirabegron 2-0 Yes [id number] 50mg Take 1 [facility] nivers (MYRBETRIQ) 8-22 tablet by ity of 50 mg 00:00: mouth in [place] tablet 00 the Medical morning. Branch mirabegron 2022-0 Yes [id number] 50mg Take 1 [facility] nivers (MYRBETRIQ) 8-22 tablet by ity of 50 mg 00:00: mouth in [place] tablet 00 the Medical morning. Branch mirabegron 2022-0 Yes [id number] 50mg Take 1 [facility] nivers (MYRBETRIQ) 8-22 tablet by ity of 50 mg 00:00: mouth in [place] tablet 00 the Medical morning. Branch mirabegron 2022-0 Yes [id number] 50mg Take 1 [facility] nivers (MYRBETRIQ) 8-22 tablet by ity of 50 mg 00:00: mouth in [place] tablet 00 the Medical morning. Branch mirabegron 2022-0 Yes [id number] 50mg Take 1 [facility] nivers (MYRBETRIQ) 8-22 tablet by ity of 50 mg 00:00: mouth in [place] tablet 00 the Medical morning. Branch mirabegron 2022-0 Yes [id number] 50mg Take 1 [facility] nivers (MYRBETRIQ) 8-22 tablet by ity of 50 mg 00:00: mouth in [place] tablet 00 the Medical morning. Branch mirabegron 2022-0 Yes [id number] 50mg Take 1 [facility] nivers (MYRBETRIQ) 8-22 tablet by ity of 50 mg 00:00: mouth in [place] tablet 00 the Medical morning. Branch mirabegron 2022-0 Yes [id number] 50mg Take 1 U nivers (MYRBETRIQ) 8-22 tablet by ity of 50 mg 00:00: mouth in [place] tablet 00 the Medical morning. Branch mirabegron 2022-0 Yes [id number] 50mg Take 1 U nivers (MYRBETRIQ) 8-22 tablet by ity of 50 mg 00:00: mouth in [place] tablet 00 the Medical morning. Branch mirabegron 2022-0 Yes [id number] 50mg Take 1 U nivers (MYRBETRIQ) 8-22 tablet by ity of 50 mg 00:00: mouth in [place] tablet 00 the Medical morning. Branch mirabegron 2022-0 Yes [id number] 50mg Take 1 U nivers (MYRBETRIQ) 8-22 tablet by ity of 50 mg 00:00: mouth in [place] tablet 00 the Medical morning. Branch mirabegron 2022-0 Yes [id number] 50mg Take 1 U nivers (MYRBETRIQ) 8-22 tablet by ity of 50 mg 00:00: mouth in [place] tablet 00 the Medical morning. Branch mirabegron 2022-0 Yes [id number] 50mg Take 1 [facility] nivers (MYRBETRIQ) 8-22 tablet by ity of 50 mg 00:00: mouth in [place] tablet 00 the Medical morning. Branch mirabegron 2022-0 Yes [id number] 50mg Take 1 U nivers (MYRBETRIQ) 8-22 tablet by ity of 50 mg 00:00: mouth in [place] tablet 00 the Medical morning. Branch mirabegron 2022-0 Yes [id number] 50mg Take 1 [facility] nivers (MYRBETRIQ) 8-22 tablet by ity of 50 mg 00:00: mouth in [place] tablet 00 the Medical morning. Branch mirabegron 2022-0 Yes [id number] 50mg Take 1 [facility] nivers (MYRBETRIQ) 8-22 tablet by ity of 50 mg 00:00: mouth in [place] tablet 00 the Medical morning. Branch mirabegron 2022-0 Yes [id number] 50mg Take 1 U nivers (MYRBETRIQ) 8-22 tablet by ity of 50 mg 00:00: mouth in [place] tablet 00 the Medical morning. Branch mirabegron 2022-0 Yes [id number] 50mg Take 1 [facility] nivers (MYRBETRIQ) 8-22 tablet by ity of 50 mg 00:00: mouth in [place] tablet 00 the Medical morning. Branch mirabegron 2022-0 Yes [id number] 50mg Take 1 [facility] nivers (MYRBETRIQ) 8-22 tablet by ity of 50 mg 00:00: mouth in [place] tablet 00 the Medical morning. Branch mirabegron 2022-0 Yes [id number] 50mg Take 1 [facility] nivers (MYRBETRIQ) 8-22 tablet by ity of 50 mg 00:00: mouth in [place] tablet 00 the Medical morning. Branch mirabegron 2022-0 Yes [id number] 50mg Take 1 [facility] nivers (MYRBETRIQ) 8-22 tablet by ity of 50 mg 00:00: mouth in [place] tablet 00 the Medical morning. Branch mirabegron 2022-0 Yes [id number] 50mg Take 1 [facility] nivers (MYRBETRIQ) 8-22 tablet by ity of 50 mg 00:00: mouth in [place] tablet 00 the Medical morning. Branch mirabegron 2022-0 Yes [id number] 50mg Take 1 [facility] nivers (MYRBETRIQ) 8-22 tablet by ity of 50 mg 00:00: mouth in [place] tablet 00 the Medical morning. Branch mirabegron 2022-0 Yes [id number] 50mg Take 1 [facility] nivers (MYRBETRIQ) 8-22 tablet by ity of 50 mg 00:00: mouth in [place] tablet 00 the Medical morning. Branch mirabegron 2022-0 Yes [id number] 50mg Take 1 [facility] nivers (MYRBETRIQ) 8-22 tablet by ity of 50 mg 00:00: mouth in [place] tablet 00 the Medical morning. Branch mirabegron 2022-0 Yes [id number] 50mg Take 1 U nivers (MYRBETRIQ) 8-22 tablet by ity of 50 mg 00:00: mouth in [place] tablet 00 the Medical morning. Branch mirabegron 2022-0 Yes [id number] 50mg Take 1 [facility] nivers (MYRBETRIQ) 8-22 tablet by ity of 50 mg 00:00: mouth in [place] tablet 00 the Medical morning. Branch mirabegron 2022-0 Yes [id number] 50mg Take 1 [facility] nivers (MYRBETRIQ) 8-22 tablet by ity of 50 mg 00:00: mouth in [place] tablet 00 the Medical morning. Branch mirabegron 2022-0 Yes [id number] 50mg Take 1 [facility] nivers (MYRBETRIQ) 8-22 tablet by ity of 50 mg 00:00: mouth in [place] tablet 00 the Medical morning. Branch mirabegron 2022-0 Yes [id number] 50mg Take 1 [facility] nivers (MYRBETRIQ) 8-22 tablet by ity of 50 mg 00:00: mouth in [place] tablet 00 the Medical morning. Branch mirabegron 2022-0 Yes [id number] 50mg Take 1 [facility] n[facility] (MYRBETRIQ) 8-22 tablet by ity of 50 mg 00:00: mouth in [place] tablet 00 the Medical morning. Branch mirabegron 2021-0 3- No [id number] 50mg Take 1 [facility] (MYRBETRIQ) 12-22 tablet by it y of 50 mg 00:00: 00:00 mouth in [place] tablet 00 :00 the Medical morning. Branch mirabegron 0 3- No [id number] 50mg Take 1 [facility] (MYRBETRIQ) 12-22 tablet by it y of 50 mg 00:00: 00:00 mouth in [place] tablet 00 :00 the Medical morning. Branch evolocumab 0 Yes [id number] 140mg inject 140 [facility] (REPATHA 7-28 104 mg under ity of SURECLICK) 00:00: the skin [place] 140 mg/mL 00 every 2 Medical PnIj (two) Branch weeks. evolocumab 2021-0 Yes [id number] 140mg inject 140 [facility] (REPATHA 7-28 104 mg under ity of SURECLICK) 00:00: the skin [place] mg/mL 00 every 2 Medical PnIj (two) Branch weeks. evolocumab 2021-0 Yes [id number] 140mg inject 140 [facility] (REPATHA 7-28 104 mg under ity of SURECLICK) 00:00: the skin [place] mg/mL 00 every 2 Medical PnIj (two) Branch weeks. evolocumab 2021-0 Yes [id number] 140mg inject 140 [facility] (REPATHA 7-28 104 mg under ity of SURECLICK) 00:00: the skin [place] mg/mL 00 every 2 Medical PnIj (two) Branch weeks. evolocumab 2021-0 Yes [id number] 140mg inject 140 [facility] (REPATHA 7-28 104 mg under ity of SURECLICK) 00:00: the skin [place] mg/mL 00 every 2 Medical PnIj (two) Branch weeks. evolocumab 2021-0 Yes [id number] 140mg inject 140 [facility] (REPATHA 7-28 104 mg under ity of SURECLICK) 00:00: the skin [place] mg/mL 00 every 2 Medical PnIj (two) Branch weeks. evolocumab 2021-0 Yes [id number] 140mg inject 140 [facility] (REPATHA 7-28 104 mg under ity of SURECLICK) 00:00: the skin [place] mg/mL 00 every 2 Medical PnIj (two) Branch weeks. evolocumab 2022-0 Yes [id number] 140mg inject 140 [facility] (REPATHA 7-28 104 mg under ity of SURECLICK) 00:00: the skin [place] mg/mL 00 every 2 Medical PnIj (two) Branch weeks. evolocumab 2-0 Yes [id number] 140mg inject 140 [facility] (REPATHA 7-28 104 mg under ity of SURECLICK) 00:00: the skin [place] mg/mL 00 every 2 Medical PnIj (two) Branch weeks. evolocumab 2-0 Yes [id number] 140mg inject 140 [facility] (REPATHA 7-28 104 mg under ity of SURECLICK) 00:00: the skin [place] mg/mL 00 every 2 Medical PnIj (two) Branch weeks. evolocumab 2-0 Yes [id number] 140mg inject 140 [facility] (REPATHA 7-28 104 mg under ity of SURECLICK) 00:00: the skin [place] 140 mg/mL 00 every 2 Medical PnIj (two) Branch weeks. evolocumab 2-0 Yes [id number] 140mg inject 140 [facility] (REPATHA 7-28 104 mg under ity of SURECLICK) 00:00: the skin [place] mg/mL 00 every 2 Medical PnIj (two) Branch weeks. evolocumab 2-0 Yes [id number] 140mg inject 140 [facility] (REPATHA 7-28 104 mg under ity of SURECLICK) 00:00: the skin [place] 140 mg/mL 00 every 2 Medical PnIj (two) Branch weeks. evolocumab 2022-0 Yes [id number] 140mg inject 140 [facility] (REPATHA 7-28 104 mg under ity of SURECLICK) 00:00: the skin [place] 140 mg/mL 00 every 2 Medical PnIj (two) Branch weeks. evolocumab 2022-0 Yes [id number] 140mg inject 140 [facility] (REPATHA 7-28 104 mg under ity of SURECLICK) 00:00: the skin [place] 140 mg/mL 00 every 2 Medical PnIj (two) Branch weeks. evolocumab 2022-0 Yes [id number] 140mg inject 140 [facility] (REPATHA 7-28 104 mg under ity of SURECLICK) 00:00: the skin [place] 140 mg/mL 00 every 2 Medical PnIj (two) Branch weeks. evolocumab 2-0 Yes [id number] 140mg inject 140 [facility] (REPATHA 7-28 104 mg under ity of SURECLICK) 00:00: the skin [place] 140 mg/mL 00 every 2 Medical PnIj (two) Branch weeks. evolocumab 2021-0 Yes [id number] 140mg inject 140 [facility] (REPATHA 7-28 104 mg under ity of SURECLICK) 00:00: the skin [place] 140 mg/mL 00 every 2 Medical PnIj (two) Branch weeks. evolocumab 2021-0 Yes [id number] 140mg inject 140 [facility] (REPATHA 7-28 104 mg under ity of SURECLICK) 00:00: the skin [place] 140 mg/mL 00 every 2 Medical PnIj (two) Branch weeks. evolocumab 2021-0 Yes [id number] 140mg inject 140 [facility] (REPATHA 7-28 104 mg under ity of SURECLICK) 00:00: the skin [place] 140 mg/mL 00 every 2 Medical PnIj (two) Branch weeks. evolocumab 2021-0 Yes [id number] 140mg inject 140 [facility] (REPATHA 7-28 104 mg under ity of SURECLICK) 00:00: the skin [place] 140 mg/mL 00 every 2 Medical PnIj (two) Branch weeks. evolocumab 2021-0 Yes [id number] 140mg inject 140 [facility] (REPATHA 7-28 104 mg under ity of SURECLICK) 00:00: the skin [place] 140 mg/mL 00 every 2 Medical PnIj (two) Branch weeks. evolocumab 2-0 Yes [id number] 140mg inject 140 [facility] (REPATHA 7-28 104 mg under ity of SURECLICK) 00:00: the skin [place] 140 mg/mL 00 every 2 Medical PnIj (two) Branch weeks. evolocumab 2-0 Yes [id number] 140mg inject 140 [facility] (REPATHA 7-28 104 mg under ity of SURECLICK) 00:00: the skin [place] 140 mg/mL 00 every 2 Medical PnIj (two) Branch weeks. evolocumab 2-0 Yes [id number] 140mg inject 140 [facility] (REPATHA 7-28 104 mg under ity of SURECLICK) 00:00: the skin [place] 140 mg/mL 00 every 2 Medical PnIj (two) Branch weeks. evolocumab 2-0 Yes [id number] 140mg inject 140 [facility] (REPATHA 7-28 104 mg under ity of SURECLICK) 00:00: the skin [place] 140 mg/mL 00 every 2 Medical PnIj (two) Branch weeks. evolocumab 2021-0 Yes [id number] 140mg inject 140 [facility] (REPATHA 7-28 104 mg under ity of SURECLICK) 00:00: the skin [place] 140 mg/mL 00 every 2 Medical PnIj (two) Branch weeks. evolocumab 2021-0 Yes [id number] 140mg inject 140 [facility] (REPATHA 7-28 104 mg under ity of SURECLICK) 00:00: the skin [place] 140 mg/mL 00 every 2 Medical PnIj (two) Branch weeks. evolocumab 2021-0 Yes [id number] 140mg inject 140 [facility] (REPATHA 7-28 104 mg under ity of SURECLICK) 00:00: the skin [place] 140 mg/mL 00 every 2 Medical PnIj (two) Branch weeks. evolocumab 2-0 Yes [id number] 140mg inject 140 [facility] (REPATHA 7-28 104 mg under ity of SURECLICK) 00:00: the skin [place] 140 mg/mL 00 every 2 Medical PnIj (two) Branch weeks. evolocumab 2-0 Yes [id number] 140mg inject 140 [facility] (REPATHA 7-28 104 mg under ity of SURECLICK) 00:00: the skin [place] 140 mg/mL 00 every 2 Medical PnIj (two) Branch weeks. evolocumab 2-0 Yes [id number] 140mg inject 140 [facility] (REPATHA 7-28 104 mg under ity of SURECLICK) 00:00: the skin [place] 140 mg/mL 00 every 2 Medical PnIj (two) Branch weeks. evolocumab 2-0 Yes [id number] 140mg inject 140 [facility] (REPATHA 7-28 104 mg under ity of SURECLICK) 00:00: the skin [place] 140 mg/mL 00 every 2 Medical PnIj (two) Branch weeks. evolocumab 2-0 Yes [id number] 140mg inject 140 [facility] (REPATHA 7-28 104 mg under ity of SURECLICK) 00:00: the skin [place] 140 mg/mL 00 every 2 Medical PnIj (two) Branch weeks. evolocumab 2-0 Yes [id number] 140mg inject 140 [facility] (REPATHA 7-28 104 mg under ity of SURECLICK) 00:00: the skin [place] 140 mg/mL 00 every 2 Medical PnIj (two) Branch weeks. evolocumab 2021-0 Yes [id number] 140mg inject 140 [facility] (REPATHA 7-28 104 mg under ity of SURECLICK) 00:00: the skin [place] 140 mg/mL 00 every 2 Medical PnIj (two) Branch weeks. evolocumab 2021-0 Yes [id number] 140mg inject 140 [facility] (REPATHA 7-28 104 mg under ity of SURECLICK) 00:00: the skin [place] 140 mg/mL 00 every 2 Medical PnIj (two) Branch weeks. evolocumab 2021-0 Yes [id number] 140mg inject 140 [facility] (REPATHA 7-28 104 mg under ity of SURECLICK) 00:00: the skin [place] 140 mg/mL 00 every 2 Medical PnIj (two) Branch weeks. evolocumab 2021-0 Yes [id number] 140mg inject 140 [facility] (REPATHA 7-28 104 mg under ity of SURECLICK) 00:00: the skin [place] 140 mg/mL 00 every 2 Medical PnIj (two) Branch weeks. evolocumab 2-0 Yes [id number] 140mg inject 140 [facility] (REPATHA 7-28 104 mg under ity of SURECLICK) 00:00: the skin [place] 140 mg/mL 00 every 2 Medical PnIj (two) Branch weeks. evolocumab 2-0 Yes [id number] 140mg inject 140 [facility] (REPATHA 7-28 104 mg under ity of SURECLICK) 00:00: the skin [place] 140 mg/mL 00 every 2 Medical PnIj (two) Branch weeks. evolocumab 2-0 Yes [id number] 140mg inject 140 [facility] (REPATHA 7-28 104 mg under ity of SURECLICK) 00:00: the skin [place] 140 mg/mL 00 every 2 Medical PnIj (two) Branch weeks. evolocumab 2-0 Yes [id number] 140mg inject 140 [facility] (REPATHA 7-28 104 mg under ity of SURECLICK) 00:00: the skin [place] 140 mg/mL 00 every 2 Medical PnIj (two) Branch weeks. evolocumab 2-0 Yes [id number] 140mg inject 140 [facility] (REPATHA 7-28 104 mg under ity of SURECLICK) 00:00: the skin [place] 140 mg/mL 00 every 2 Medical PnIj (two) Branch weeks. evolocumab 2021-0 Yes [id number] 140mg inject 140 [facility] (REPATHA 7-28 104 mg under ity of SURECLICK) 00:00: the skin [place] 140 mg/mL 00 every 2 Medical PnIj (two) Branch weeks. evolocumab 2021-0 Yes [id number] 140mg inject 140 [facility] (REPATHA 7-28 104 mg under ity of SURECLICK) 00:00: the skin [place] 140 mg/mL 00 every 2 Medical PnIj (two) Branch weeks. evolocumab 2021-0 Yes [id number] 140mg inject 140 [facility] (REPATHA 7-28 104 mg under ity of SURECLICK) 00:00: the skin [place] 140 mg/mL 00 every 2 Medical PnIj (two) Branch weeks. evolocumab 2-0 Yes [id number] 140mg inject 140 [facility] (REPATHA 7-28 104 mg under ity of SURECLICK) 00:00: the skin [place] 140 mg/mL 00 every 2 Medical PnIj (two) Branch weeks. evolocumab 2022-0 Yes [id number] 140mg inject 140 [facility] (REPATHA 7-28 104 mg under ity of SURECLICK) 00:00: the skin [place] 140 mg/mL 00 every 2 Medical PnIj (two) Branch weeks. evolocumab 2-0 Yes [id number] 140mg inject 140 [facility] (REPATHA 7-28 104 mg under ity of SURECLICK) 00:00: the skin [place] 140 mg/mL 00 every 2 Medical PnIj (two) Branch weeks. evolocumab 2021-0 Yes [id number] 140mg inject 140 [facility] (REPATHA 7-28 104 mg under ity of SURECLICK) 00:00: the skin [place] 140 mg/mL 00 every 2 Medical PnIj (two) Branch weeks. evolocumab 2021-0 Yes [id number] 140mg inject 140 [facility] (REPATHA 7-28 104 mg under ity of SURECLICK) 00:00: the skin [place] 140 mg/mL 00 every 2 Medical PnIj (two) Branch weeks. evolocumab 0 2022- No [id number] 140mg inject 140 [facility] (REPATHA 7-28 07-12 104 mg under ity of SURECLICK) 00:00: 00:00 the skin [place] 140 mg/mL 00 :00 every 2 Medical PnIj (two) Branch weeks. NIFEdipine 2021- No [id number] 30mg Take 1 [facility] XL 30 mg 24 7-25 10-24 104 tablet by it y of hr tablet 00:00: 04:59 mouth in [place] 00 :00 the Medical morning Branch and 1 tablet in the evening. Do all this for 90 days. NIFEdipine 2021-2021- No [id number] 30mg Take 1 [facility] XL 30 mg 24 7-25 10-24 104 tablet by it y of hr tablet 00:00: 04:59 mouth in [place] 00 :00 the Medical morning Branch and 1 tablet in the evening. Do all this for 90 days. NIFEdipine 2021- No [id number] 30mg Take 1 [facility] XL 30 mg 24 7-25 10-24 104 tablet by it y of hr tablet 00:00: 04:59 mouth in [place] 00 :00 the Medical morning Branch and 1 tablet in the evening. Do all this for 90 days. NIFEdipine 2021-2021- No [id number] 30mg Take 1 [facility] XL 30 mg 24 7-25 10-24 104 tablet by it y of hr tablet 00:00: 04:59 mouth in [place] 00 :00 the Medical morning Branch and 1 tablet in the evening. Do all this for 90 days. NIFEdipine 2021-2021- No [id number] 30mg Take 1 [facility] XL 30 mg 24 7-25 10-24 104 tablet by it y of hr tablet 00:00: 04:59 mouth in [place] 00 :00 the Medical morning Branch and 1 tablet in the evening. Do all this for 90 days. losartan 50 2021-0 Yes [id number] 50mg Take 1 [facility] mg tablet 5-02 tablet by ity o f 00:00: mouth 2 00 (two) Medical times Branch daily. losartan 50 2-0 Yes [id number] 50mg Take 1 [facility] mg tablet 5-02 tablet by ity o f 00:00: mouth 2 00 (two) Medical times Branch daily. losartan 50 2021-0 Yes [id number] 50mg Take 1 [facility] mg tablet 5-02 tablet by ity o f 00:00: mouth 2 (two) Medical times Branch daily. losartan 50 2021-0 Yes [id number] 50mg Take 1 [facility] mg tablet 5-02 tablet by ity o f 00:00: mouth 2 [place] (two) Medical times Branch daily. losartan 50 2021-0 Yes [id number] 50mg Take 1 [facility] mg tablet 5-02 tablet by ity o f 00:00: mouth 2 (two) Medical times Branch daily. losartan 50 2021-0 2- No [id number] 50mg Take 1 [facility] mg tablet 5-02 [...] [place] 00 EVERY DAY Medical Branch EZETIMIBE 2021-0 Yes TAKE 1 [facility] 10 mg 4-11 TABLET BY [facility] of tablet 00:00: MOUTH [place] 00 EVERY DAY Medical Branch EZETIMIBE 2021-0 Yes TAKE 1 [facility] 10 mg 4-11 TABLET BY [facility]y of tablet 00:00: MOUTH [place] 00 EVERY DAY Medical Branch EZETIMIBE 2021-0 Yes [...] 4-11 TABLET BY ity of tablet 00:00: 00 EVERY DAY Medical Branch EZETIMIBE 2022-0 [...] MOUTH 00 EVERY DAY Medical Branch EZETIMIBE 2021-0 Yes TAKE 1 [facility] 10 mg 4-11 TABLET BY ity of tablet 00:00: MOUTH 00 EVERY DAY Medical Branch EZETIMIBE 2021-0 Yes [...] 00 EVERY DAY Medical Branch EZETIMIBE 2022-0 2023- No TAKE 1 [facility] 10 mg 4-11 07-26 TABLET BY ity of tablet 00:00: 00:00 MOUTH [place] 00 :00 EVERY DAY Medical Branch trospium 20 2021-0 Yes [id number] 20mg Take 1 [facility] mg tablet 2-25 tablet by ity o f 00:00: mouth (two) Medical times Branch daily. trospium 20 2021-0 Yes [id number] 20mg Take 1 [facility] mg tablet 2-25 tablet by ity o f 00:00: mouth (two) Medical times Branch daily. trospium 20 2021-0 Yes [id number] 20mg Take 1 [facility] mg tablet 2-25 tablet by ity o f 00:00: mouth (two) Medical times Branch daily. trospium 20 2021-0 Yes [id number] 20mg Take 1 [facility] mg tablet 2-25 tablet by ity o f 00:00: mouth (two) Medical times Branch daily. trospium 20 2021-0 Yes [id number] 20mg Take 1 [facility] mg tablet 2-25 tablet by ity o f 00:00: mouth (two) Medical times Branch daily. trospium 20 2021-0 Yes [id number] 20mg Take 1 [facility] mg tablet 2-25 tablet by ity o f 00:00: mouth (two) Medical times Branch daily. trospium 20 2021-0 Yes [id number] 20mg Take 1 [facility] mg tablet 2-25 tablet by ity o f 00:00: mouth (two) Medical times Branch daily. trospium 20 2021-0 Yes [id number] 20mg Take 1 [facility] mg tablet 2-25 tablet by ity o f 00:00: mouth (two) Medical times Branch daily. trospium 20 2021-0 Yes [id number] 20mg Take 1 [facility] mg tablet 2-25 tablet by ity o f 00:00: mouth (two) Medical times Branch daily. trospium 20 2021-0 Yes [id number] 20mg Take 1 [facility] mg tablet 2-25 tablet by ity o f 00:00: mouth (two) Medical times Branch daily. trospium 20 2021-0 Yes [id number] 20mg Take 1 [facility] mg tablet 2-25 tablet by ity o f 00:00: mouth (two) Medical times Branch daily. trospium 20 2021-0 Yes [id number] 20mg Take 1 [facility] mg tablet 2-25 tablet by ity o f 00:00: mouth (two) Medical times Branch daily. trospium 20 2021-0 Yes [id number] 20mg Take 1 [facility] mg tablet 2-25 tablet by ity o f 00:00: mouth (two) Medical times Branch daily. trospium 20 2021-0 Yes [id number] 20mg Take 1 [facility] mg tablet 2-25 tablet by ity o f 00:00: mouth (two) Medical times Branch daily. trospium 20 2021-0 Yes [id number] 20mg Take 1 [facility] mg tablet 2-25 tablet by ity o f 00:00: mouth (two) Medical times Branch daily. trospium 20 2021-0 Yes [id number] 20mg Take 1 [facility] mg tablet 2-25 tablet by ity o f 00:00: mouth (two) Medical times Branch daily. trospium 20 2021-0 Yes [id number] 20mg Take 1 [facility] mg tablet 2-25 tablet by ity o f 00:00: mouth (two) Medical times Branch daily. trospium 20 2021-0 Yes [id number] 20mg Take 1 [facility] mg tablet 2-25 tablet by ity o f 00:00: mouth (two) Medical times Branch daily. trospium 20 2021-0 Yes [id number] 20mg Take 1 [facility] mg tablet 2-25 tablet by ity o f 00:00: mouth (two) Medical times Branch daily. trospium 20 2021-0 Yes [id number] 20mg Take 1 [facility] mg tablet 2-25 tablet by ity o f 00:00: mouth (two) Medical times Branch daily. trospium 20 2021-0 Yes [id number] 20mg Take 1 [facility] mg tablet 2-25 tablet by ity o f 00:00: mouth (two) Medical times Branch daily. trospium 20 2021-0 Yes [id number] 20mg Take 1 [facility] mg tablet 2-25 tablet by ity o f 00:00: mouth (two) Medical times Branch daily. trospium 20 2021-0 Yes [id number] 20mg Take 1 [facility] mg tablet 2-25 tablet by ity o f 00:00: mouth (two) Medical times Branch daily. trospium 20 2021-0 Yes [id number] 20mg Take 1 [facility] mg tablet 2-25 tablet by ity o f 00:00: mouth (two) Medical times Branch daily. trospium 20 2021-0 Yes [id number] 20mg Take 1 [facility] mg tablet 2-25 tablet by ity o f 00:00: mouth (two) Medical times Branch daily. trospium 20 2021-0 Yes [id number] 20mg Take 1 [facility] mg tablet 2-25 tablet by ity o f 00:00: mouth (two) Medical times Branch daily. trospium 20 2021-0 Yes [id number] 20mg Take 1 [facility] mg tablet 2-25 tablet by ity o f 00:00: mouth (two) Medical times Branch daily. trospium 20 2021-0 Yes [id number] 20mg Take 1 [facility] mg tablet 2-25 tablet by ity o f 00:00: mouth (two) Medical times Branch daily. trospium 20 2021-0 Yes [id number] 20mg Take 1 [facility] mg tablet 2-25 tablet by ity o f 00:00: mouth (two) Medical times Branch daily. trospium 20 2021-0 Yes [id number] 20mg Take 1 [facility] mg tablet 2-25 tablet by ity o f 00:00: mouth (two) Medical times Branch daily. trospium 20 2021-0 Yes [id number] 20mg Take 1 [facility] mg tablet 2-25 tablet by ity o f 00:00: mouth (two) Medical times Branch daily. trospium 20 2021-0 Yes [id number] 20mg Take 1 [facility] mg tablet 2-25 tablet by ity o f 00:00: mouth (two) Medical times Branch daily. trospium 20 2021-0 Yes [id number] 20mg Take 1 [facility] mg tablet 2-25 tablet by ity o f 00:00: mouth (two) Medical times Branch daily. trospium 20 2021-0 Yes [id number] 20mg Take 1 [facility] mg tablet 2-25 tablet by ity o f 00:00: mouth (two) Medical times Branch daily. trospium 20 2021-0 Yes [id number] 20mg Take 1 [facility] mg tablet 2-25 tablet by ity o f 00:00: mouth (two) Medical times Branch daily. trospium 20 2021-0 Yes [id number] 20mg Take 1 [facility] mg tablet 2-25 tablet by ity o f 00:00: mouth (two) Medical times Branch daily. trospium 20 2021-0 Yes [id number] 20mg Take 1 [facility] mg tablet 2-25 tablet by ity o f 00:00: mouth (two) Medical times Branch daily. trospium 20 2021-0 Yes [id number] 20mg Take 1 [facility] mg tablet 2-25 tablet by ity o f 00:00: mouth (two) Medical times Branch daily. trospium 20 2021-0 Yes [id number] 20mg Take 1 [facility] mg tablet 2-25 tablet by ity o f 00:00: mouth (two) Medical times Branch daily. trospium 20 2021-0 Yes [id number] 20mg Take 1 [facility] mg tablet 2-25 tablet by ity o f 00:00: mouth (two) Medical times Branch daily. trospium 20 2021-0 Yes [id number] 20mg Take 1 [facility] mg tablet 2-25 tablet by ity o f 00:00: mouth (two) Medical times Branch daily. trospium 20 2021-0 Yes [id number] 20mg Take 1 [facility] mg tablet 2-25 tablet by ity o f 00:00: mouth (two) Medical times Branch daily. trospium 20 2021-0 Yes [id number] 20mg Take 1 [facility] mg tablet 2-25 tablet by ity o f 00:00: mouth (two) Medical times Branch daily. trospium 20 2021-0 Yes [id number] 20mg Take 1 [facility] mg tablet 2-25 tablet by ity o f 00:00: mouth (two) Medical times Branch daily. trospium 20 2021-0 Yes [id number] 20mg Take 1 [facility] mg tablet 2-25 tablet by ity o f 00:00: mouth (two) Medical times Branch daily. trospium 20 2021-0 Yes [id number] 20mg Take 1 [facility] mg tablet 2-25 tablet by ity o f 00:00: mouth (two) Medical times Branch daily. trospium 20 2021-0 Yes [id number] 20mg Take 1 [facility] mg tablet 2-25 tablet by ity o f 00:00: mouth (two) Medical times Branch daily. trospium 20 2021-0 Yes [id number] 20mg Take 1 [facility] mg tablet 2-25 tablet by ity o f 00:00: mouth (two) Medical times Branch daily. trospium 20 2021-0 Yes [id number] 20mg Take 1 [facility] mg tablet 2-25 tablet by ity o f 00:00: mouth (two) Medical times Branch daily. trospium 20 2021-0 Yes [id number] 20mg Take 1 [facility] mg tablet 2-25 tablet by ity o f 00:00: mouth (two) Medical times Branch daily. trospium 20 2021-0 Yes [id number] 20mg Take 1 [facility] mg tablet 2-25 tablet by ity o f 00:00: mouth (two) Medical times Branch daily. trospium 20 2021-0 Yes [id number] 20mg Take 1 [facility] mg tablet 2-25 tablet by ity o f 00:00: mouth (two) Medical times Branch daily. trospium 20 2021-0 Yes [id number] 20mg Take 1 [facility] mg tablet 2-25 tablet by ity o f 00:00: mouth (two) Medical times Branch daily. trospium 20 2021-0 Yes [id number] 20mg Take 1 [facility] mg tablet 2-25 tablet by ity o f 00:00: mouth (two) Medical times Branch daily. trospium 20 2021-0 Yes [id number] 20mg Take 1 [facility] mg tablet 2-25 tablet by ity o f 00:00: mouth (two) Medical times Branch daily. trospium 20 2021-0 Yes [id number] 20mg Take 1 [facility] mg tablet 2-25 tablet by ity o f 00:00: mouth (two) Medical times Branch daily. trospium 20 2021-0 Yes [id number] 20mg Take 1 [facility] mg tablet 2-25 tablet by ity o f 00:00: mouth (two) Medical times Branch daily. trospium 20 2021-0 Yes [id number] 20mg Take 1 [facility] mg tablet 2-25 tablet by ity o f 00:00: mouth (two) Medical times Branch daily. trospium 20 2021-0 Yes [id number] 20mg Take 1 [facility] mg tablet 2-25 tablet by ity o f 00:00: mouth (two) Medical times Branch daily. trospium 20 2021-0 Yes [id number] 20mg Take 1 [facility] mg tablet 2-25 tablet by ity o f 00:00: mouth (two) Medical times Branch daily. trospium 20 2021-0 Yes [id number] 20mg Take 1 [facility] mg tablet 2-25 tablet by ity o f 00:00: mouth (two) Medical times Branch daily. trospium 20 2021-0 Yes [id number] 20mg Take 1 [facility] mg tablet 2-25 tablet by ity o f 00:00: mouth (two) Medical times Branch daily. trospium 20 2021-0 Yes [id number] 20mg Take 1 [facility] mg tablet 2-25 tablet by ity o f 00:00: mouth (two) Medical times Branch daily. trospium 20 2021-0 Yes [id number] 20mg Take 1 [facility] mg tablet 2-25 tablet by ity o f 00:00: mouth (two) Medical times Branch daily. trospium 20 2021-0 Yes [id number] 20mg Take 1 [facility] mg tablet 2-25 tablet by ity o f 00:00: mouth (two) Medical times Branch daily. trospium 20 2-0 Yes [id number] 20mg Take 1 [facility] mg tablet 2-25 tablet by ity o f 00:00: mouth (two) Medical times Branch daily. trospium 20 2-0 Yes [id number] 20mg Take 1 [facility] mg tablet 2-25 tablet by ity o f 00:00: mouth (two) Medical times Branch daily. trospium 20 2021-0 Yes [id number] 20mg Take 1 [facility] mg tablet 2-25 tablet by ity o f 00:00: mouth (two) Medical times Branch daily. trospium 20 2021-0 Yes [id number] 20mg Take 1 [facility] mg tablet 2-25 tablet by ity o f 00:00: mouth (two) Medical times Branch daily. trospium 20 2021-0 Yes [id number] 20mg Take 1 [facility] mg tablet 2-25 tablet by ity o f 00:00: mouth (two) Medical times Branch daily. trospium 20 2021-0 Yes [id number] 20mg Take 1 [facility] mg tablet 2-25 tablet by ity o f 00:00: mouth (two) Medical times Branch daily. trospium 20 2021-0 Yes [id number] 20mg Take 1 [facility] mg tablet 2-25 tablet by ity o f 00:00: mouth (two) Medical times Branch daily. trospium 20 2021-0 Yes [id number] 20mg Take 1 [facility] mg tablet 2-25 tablet by ity o f 00:00: mouth (two) Medical times Branch daily. trospium 20 2021-0 Yes [id number] 20mg Take 1 [facility] mg tablet 2-25 tablet by ity o f 00:00: mouth (two) Medical times Branch daily. trospium 20 2021-0 Yes [id number] 20mg Take 1 [facility] mg tablet 2-25 tablet by ity o f 00:00: mouth (two) Medical times Branch daily. trospium 20 2021-0 Yes [id number] 20mg Take 1 [facility] mg tablet 2-25 tablet by ity o f 00:00: mouth (two) Medical times Branch daily. trospium 20 2-0 Yes [id number] 20mg Take 1 [facility] mg tablet 2-25 tablet by ity o f 00:00: mouth (two) Medical times Branch daily. trospium 20 2-0 Yes [id number] 20mg Take 1 [facility] mg tablet 2-25 tablet by ity o f 00:00: mouth 2 [place] 00 (two) Medical times Branch daily. trospium 20 2021-0 Yes [id number] 20mg Take 1 [facility] mg tablet 2-25 tablet by ity o f 00:00: mouth (two) Medical times Branch daily. trospium 20 2021-0 Yes [id number] 20mg Take 1 [facility] mg tablet 2-25 tablet by ity o f 00:00: mouth (two) Medical times Branch daily. trospium 20 2021-0 Yes [id number] 20mg Take 1 [facility] mg tablet 2-25 tablet by ity o f 00:00: mouth (two) Medical times Branch daily. trospium 20 2021-0 Yes [id number] 20mg Take 1 [facility] mg tablet 2-25 tablet by ity o f 00:00: mouth (two) Medical times Branch daily. trospium 20 2021-0 Yes [id number] 20mg Take 1 [facility] mg tablet 2-25 tablet by ity o f 00:00: mouth (two) Medical times Branch daily. trospium 20 2021-0 Yes [id number] 20mg Take 1 [facility] mg tablet 2-25 tablet by ity o f 00:00: mouth (two) Medical times Branch daily. trospium 20 2021-0 Yes [id number] 20mg Take 1 [facility] mg tablet 2-25 tablet by ity o f 00:00: mouth (two) Medical times Branch daily. trospium 20 2021-0 Yes [id number] 20mg Take 1 [facility] mg tablet 2-25 tablet by ity o f 00:00: mouth (two) Medical times Branch daily. trospium 20 2021-0 Yes [id number] 20mg Take 1 [facility] mg tablet 2-25 tablet by ity o f 00:00: mouth (two) Medical times Branch daily. trospium 20 2021-0 Yes [id number] 20mg Take 1 [facility] mg tablet 2-25 tablet by ity o f 00:00: mouth (two) Medical times Branch daily. trospium 20 2021-0 Yes [id number] 20mg Take 1 [facility] mg tablet 2-25 tablet by ity o f 00:00: mouth (two) Medical times Branch daily. trospium 20 2021-0 Yes [id number] 20mg Take 1 [facility] mg tablet 2-25 tablet by ity o f 00:00: mouth (two) Medical times Branch daily. trospium 20 2021-0 Yes [id number] 20mg Take 1 [facility] mg tablet 2-25 tablet by ity o f 00:00: mouth (two) Medical times Branch daily. trospium 20 2021-0 Yes [id number] 20mg Take 1 [facility] mg tablet 2-25 tablet by ity o f 00:00: mouth (two) Medical times Branch daily. trospium 20 2021-0 Yes [id number] 20mg Take 1 [facility] mg tablet 2-25 tablet by ity o f 00:00: mouth (two) Medical times Branch daily. trospium 20 2021-0 Yes [id number] 20mg Take 1 [facility] mg tablet 2-25 tablet by ity o f 00:00: mouth (two) Medical times Branch daily. trospium 20 2021-0 Yes [id number] 20mg Take 1 [facility] mg tablet 2-25 tablet by ity o f 00:00: mouth (two) Medical times Branch daily. trospium 20 2021-0 Yes [id number] 20mg Take 1 [facility] mg tablet 2-25 tablet by ity o f 00:00: mouth (two) Medical times Branch daily. trospium 20 2021-0 Yes [id number] 20mg Take 1 [facility] mg tablet 2-25 tablet by ity o f 00:00: mouth (two) Medical times Branch daily. trospium 20 2021-0 Yes [id number] 20mg Take 1 [facility] mg tablet 2-25 tablet by ity o f 00:00: mouth (two) Medical times Branch daily. trospium 20 2021-0 Yes [id number] 20mg Take 1 [facility] mg tablet 2-25 tablet by ity o f 00:00: mouth (two) Medical times Branch daily. trospium 20 2021-0 Yes [id number] 20mg Take 1 [facility] mg tablet 2-25 tablet by ity o f 00:00: mouth (two) Medical times Branch daily. trospium 20 2021-0 Yes [id number] 20mg Take 1 [facility] mg tablet 2-25 tablet by ity o f 00:00: mouth 2 [place] 00 (two) Medical times Branch daily. trospium 20 2022-0 Yes [id number] 20mg Take 1 [facility] mg tablet 2-25 tablet by ity o f 00:00: mouth 2 [place] 00 (two) Medical times Branch daily. trospium 20 2022-0 Yes [id number] 20mg Take 1 [facility] mg tablet 2-25 tablet by ity o f 00:00: mouth 2 [place] 00 (two) Medical times Branch daily. Cholecalcif 2021-1 Yes [id number] 2000U Take 1 [facility] perfecto, 1-08 capsule by ity of Vitamin D3, 00:00: mouth [place] (D3-1999) 00 daily. Medical 50 mcg Take with Branch (2,000 food. unit) capsule Cholecalcif 2020-1 Yes [id number] 2000U Take 1 [facility] perfecto, 1-08 capsule by ity of Vitamin D3, 00:00: mouth [place] (D3-1999) 00 daily. Medical 50 mcg Take with Branch (2,000 food. unit) capsule Cholecalcif 202-1 Yes [id number] 2000U Take 1 [facility] perfecto, 1-08 capsule by ity of Vitamin D3, 00:00: mouth [place] (D3-1999) 00 daily. Medical 50 mcg Take with Branch (2,000 food. unit) capsule Cholecalcif 2021-1 Yes [id number] 2000U Take 1 [facility] perfecto, 1-08 capsule by ity of Vitamin D3, 00:00: mouth [place] (D3-1999) 00 daily. Medical 50 mcg Take with Branch (2,000 food. unit) capsule Cholecalcif 2021-1 Yes [id number] 2000U Take 1 [facility] perfecto, 1-08 capsule by ity of Vitamin D3, 00:00: mouth [place] (D3-1999) 00 daily. Medical 50 mcg Take with Branch (2,000 food. unit) capsule Cholecalcif 2021-1 Yes [id number] 2000U Take 1 [facility] perfecto, 1-08 capsule by ity of Vitamin D3, 00:00: mouth [place] (D3-1999) 00 daily. Medical 50 mcg Take with Branch (2,000 food. unit) capsule Cholecalcif 2021-1 Yes [id number] 2000U Take 1 [facility] perfecto, 1-08 capsule by ity of Vitamin D3, 00:00: mouth [place] (D3-2000) 00 daily. Medical 50 mcg Take with Branch (2,000 food. unit) capsule Cholecalcif 2021-1 Yes [id number] 2000U Take 1 [facility] perfecto, 1-08 capsule by ity of Vitamin D3, 00:00: mouth [place] (D3-2000) 00 daily. Medical 50 mcg Take with Branch (2,000 food. unit) capsule Cholecalcif 2021-1 Yes [id number] 2000U Take 1 [facility] perfecto, 1-08 capsule by ity of Vitamin D3, 00:00: mouth [place] (D3-2000) 00 daily. Medical 50 mcg Take with Branch (2,000 food. unit) capsule Cholecalcif 2021-1 Yes [id number] 2000U Take 1 [facility] perfecto, 1-08 capsule by ity of Vitamin D3, 00:00: mouth [place] (D3-2000) 00 daily. Medical 50 mcg Take with Branch (2,000 food. unit) capsule Cholecalcif 2021-1 Yes [id number] 2000U Take 1 [facility] perfecto, 1-08 capsule by ity of Vitamin D3, 00:00: mouth [place] (D3-1999) 00 daily. Medical 50 mcg Take with Branch (2,000 food. unit) capsule Cholecalcif 2021-1 Yes [id number] 2000U Take 1 [facility] perfecto, 1-08 capsule by ity of Vitamin D3, 00:00: mouth [place] (D3-2000) 00 daily. Medical 50 mcg Take with Branch (2,000 food. unit) capsule Cholecalcif 2021-1 Yes [id number] 2000U Take 1 [facility] perfecto, 1-08 capsule by ity of Vitamin D3, 00:00: mouth [place] (D3-2000) 00 daily. Medical 50 mcg Take with Branch (2,000 food. unit) capsule Cholecalcif 2021-1 Yes [id number] 2000U Take 1 [facility] perfecto, 1-08 capsule by ity of Vitamin D3, 00:00: mouth [place] (D3-2000) 00 daily. Medical 50 mcg Take with Branch (2,000 food. unit) capsule Cholecalcif 2021-1 Yes [id number] 2000U Take 1 [facility] perfecto, 1-08 capsule by ity of Vitamin D3, 00:00: mouth [place] (D3-2000) 00 daily. Medical 50 mcg Take with Branch (2,000 food. unit) capsule Cholecalcif 2021-1 Yes [id number] 2000U Take 1 [facility] perfecto, 1-08 capsule by ity of Vitamin D3, 00:00: mouth [place] (D3-1999) 00 daily. Medical 50 mcg Take with Branch (2,000 food. unit) capsule Cholecalcif 2021-1 Yes [id number] 2000U Take 1 [facility] perfecto, 1-08 capsule by ity of Vitamin D3, 00:00: mouth [place] (D3-1999) 00 daily. Medical 50 mcg Take with Branch (2,000 food. unit) capsule Cholecalcif 2021-1 Yes [id number] 2000U Take 1 [facility] perfecto, 1-08 capsule by ity of Vitamin D3, 00:00: mouth [place] (D3-1999) 00 daily. Medical 50 mcg Take with Branch (2,000 food. unit) capsule Cholecalcif 2021-1 Yes [id number] 2000U Take 1 [facility] perfecto, 1-08 capsule by ity of Vitamin D3, 00:00: mouth [place] (D3-1999) 00 daily. Medical 50 mcg Take with Branch (2,000 food. unit) capsule Cholecalcif 2021-1 Yes [id number] 2000U Take 1 [facility] perfecto, 1-08 capsule by ity of Vitamin D3, 00:00: mouth [place] (D3-1999) 00 daily. Medical 50 mcg Take with Branch (2,000 food. unit) capsule Cholecalcif 2021-1 Yes [id number] 2000U Take 1 [facility] perfecto, 1-08 capsule by ity of Vitamin D3, 00:00: mouth [place] (D3-1999) 00 daily. Medical 50 mcg Take with Branch (2,000 food. unit) capsule Cholecalcif 2021-1 Yes [id number] 2000U Take 1 [facility] perfecto, 1-08 capsule by ity of Vitamin D3, 00:00: mouth [place] (D3-1999) 00 daily. Medical 50 mcg Take with Branch (2,000 food. unit) capsule Cholecalcif 2021-1 Yes [id number] 2000U Take 1 [facility] perfecto, 1-08 capsule by ity of Vitamin D3, 00:00: mouth [place] (D3-1999) 00 daily. Medical 50 mcg Take with Branch (2,000 food. unit) capsule Cholecalcif 2021-1 Yes [id number] 2000U Take 1 [facility] perfecto, 1-08 capsule by ity of Vitamin D3, 00:00: mouth [place] (D3-2000) 00 daily. Medical 50 mcg Take with Branch (2,000 food. unit) capsule Cholecalcif 2021-1 Yes [id number] 2000U Take 1 [facility] perfecto, 1-08 capsule by ity of Vitamin D3, 00:00: mouth [place] (D3-2000) 00 daily. Medical 50 mcg Take with Branch (2,000 food. unit) capsule Cholecalcif 2021-1 Yes [id number] 2000U Take 1 [facility] perfecto, 1-08 capsule by ity of Vitamin D3, 00:00: mouth [place] (D3-2000) 00 daily. Medical 50 mcg Take with Branch (2,000 food. unit) capsule Cholecalcif 2021-1 Yes [id number] 2000U Take 1 [facility] perfecto, 1-08 capsule by ity of Vitamin D3, 00:00: mouth [place] (D3-2000) 00 daily. Medical 50 mcg Take with Branch (2,000 food. unit) capsule Cholecalcif 2021-1 Yes [id number] 2000U Take 1 [facility] perfecto, 1-08 capsule by ity of Vitamin D3, 00:00: mouth [place] (D3-2000) 00 daily. Medical 50 mcg Take with Branch (2,000 food. unit) capsule Cholecalcif 2021-1 Yes [id number] 2000U Take 1 [facility] perfecto, 1-08 capsule by ity of Vitamin D3, 00:00: mouth [place] (D3-2000) 00 daily. Medical 50 mcg Take with Branch (2,000 food. unit) capsule Cholecalcif 2021-1 Yes [id number] 2000U Take 1 [facility] perfecto, 1-08 capsule by ity of Vitamin D3, 00:00: mouth [place] (D3-2000) 00 daily. Medical 50 mcg Take with Branch (2,000 food. unit) capsule Cholecalcif 2021-1 Yes [id number] 2000U Take 1 [facility] perfecto, 1-08 capsule by ity of Vitamin D3, 00:00: mouth [place] (D3-2000) 00 daily. Medical 50 mcg Take with Branch (2,000 food. unit) capsule Cholecalcif 2021-1 Yes [id number] 2000U Take 1 [facility] perfecto, 1-08 capsule by ity of Vitamin D3, 00:00: mouth [place] (D3-2000) 00 daily. Medical 50 mcg Take with Branch (2,000 food. unit) capsule Cholecalcif 2021-1 Yes [id number] 2000U Take 1 [facility] perfecto, 1-08 capsule by ity of Vitamin D3, 00:00: mouth [place] (D3-1999) 00 daily. Medical 50 mcg Take with Branch (2,000 food. unit) capsule Cholecalcif 2021-1 Yes [id number] 2000U Take 1 [facility] perfecto, 1-08 capsule by ity of Vitamin D3, 00:00: mouth [place] (D3-1999) 00 daily. Medical 50 mcg Take with Branch (2,000 food. unit) capsule Cholecalcif 2021-1 Yes [id number] 2000U Take 1 [facility] perfecto, 1-08 capsule by ity of Vitamin D3, 00:00: mouth [place] (D3-1999) 00 daily. Medical 50 mcg Take with Branch (2,000 food. unit) capsule Cholecalcif 2021-1 Yes [id number] 2000U Take 1 [facility] perfecto, 1-08 capsule by ity of Vitamin D3, 00:00: mouth [place] (D3-1999) 00 daily. Medical 50 mcg Take with Branch (2,000 food. unit) capsule Cholecalcif 2021-1 Yes [id number] 2000U Take 1 [facility] perfecto, 1-08 capsule by ity of Vitamin D3, 00:00: mouth [place] (D3-1999) 00 daily. Medical 50 mcg Take with Branch (2,000 food. unit) capsule Cholecalcif 2021-1 Yes [id number] 2000U Take 1 [facility] perfecto, 1-08 capsule by ity of Vitamin D3, 00:00: mouth [place] (D3-1999) 00 daily. Medical 50 mcg Take with Branch (2,000 food. unit) capsule Cholecalcif 2021-1 Yes [id number] 2000U Take 1 [facility] perfecto, 1-08 capsule by ity of Vitamin D3, 00:00: mouth [place] (D3-1999) 00 daily. Medical 50 mcg Take with Branch (2,000 food. unit) capsule Cholecalcif 2021-1 Yes [id number] 2000U Take 1 [facility] perfecto, 1-08 capsule by ity of Vitamin D3, 00:00: mouth [place] (D3-1999) 00 daily. Medical 50 mcg Take with Branch (2,000 food. unit) capsule Cholecalcif 2021-1 Yes [id number] 2000U Take 1 [facility] perfecto, 1-08 capsule by ity of Vitamin D3, 00:00: mouth [place] (D3-2000) 00 daily. Medical 50 mcg Take with Branch (2,000 food. unit) capsule Cholecalcif 2021-1 Yes [id number] 2000U Take 1 [facility] perfecto, 1-08 capsule by ity of Vitamin D3, 00:00: mouth [place] (D3-2000) 00 daily. Medical 50 mcg Take with Branch (2,000 food. unit) capsule Cholecalcif 2021-1 Yes [id number] 2000U Take 1 [facility] perfecto, 1-08 capsule by ity of Vitamin D3, 00:00: mouth [place] (D3-2000) 00 daily. Medical 50 mcg Take with Branch (2,000 food. unit) capsule Cholecalcif 2021-1 Yes [id number] 2000U Take 1 [facility] perfecto, 1-08 capsule by ity of Vitamin D3, 00:00: mouth [place] (D3-2000) 00 daily. Medical 50 mcg Take with Branch (2,000 food. unit) capsule Cholecalcif 2021-1 Yes [id number] 2000U Take 1 [facility] perfecto, 1-08 capsule by ity of Vitamin D3, 00:00: mouth [place] (D3-2000) 00 daily. Medical 50 mcg Take with Branch (2,000 food. unit) capsule Cholecalcif 2021-1 Yes [id number] 1999U Take 1 [facility] perfecto, 1-08 capsule by ity of Vitamin D3, 00:00: mouth [place] (D3-2000) 00 daily. Medical 50 mcg Take with Branch (2,000 food. unit) capsule Cholecalcif 2021-1 Yes [id number] 2000U Take 1 [facility] perfecto, 1-08 capsule by ity of Vitamin D3, 00:00: mouth [place] (D3-2000) 00 daily. Medical 50 mcg Take with Branch (2,000 food. unit) capsule Cholecalcif 2021-1 Yes [id number] 2000U Take 1 [facility] perfecto, 1-08 capsule by ity of Vitamin D3, 00:00: mouth [place] (D3-2000) 00 daily. Medical 50 mcg Take with Branch (2,000 food. unit) capsule Cholecalcif 2021-1 Yes [id number] 2000U Take 1 [facility] perfecto, 1-08 capsule by ity of Vitamin D3, 00:00: mouth [place] (D3-2000) 00 daily. Medical 50 mcg Take with Branch (2,000 food. unit) capsule Cholecalcif 2021-1 Yes [id number] 2000U Take 1 [facility] perfecto, 1-08 capsule by ity of Vitamin D3, 00:00: mouth [place] (D3-1999) 00 daily. Medical 50 mcg Take with Branch (2,000 food. unit) capsule Cholecalcif 2021-1 Yes [id number] 2000U Take 1 [facility] perfecto, 1-08 capsule by ity of Vitamin D3, 00:00: mouth [place] (D3-1999) 00 daily. Medical 50 mcg Take with Branch (2,000 food. unit) capsule Cholecalcif 2021-1 Yes [id number] 2000U Take 1 [facility] perfecto, 1-08 capsule by ity of Vitamin D3, 00:00: mouth [place] (D3-1999) 00 daily. Medical 50 mcg Take with Branch (2,000 food. unit) capsule Cholecalcif 2021-1 Yes [id number] 2000U Take 1 [facility] perfecto, 1-08 capsule by ity of Vitamin D3, 00:00: mouth [place] (D3-1999) 00 daily. Medical 50 mcg Take with Branch (2,000 food. unit) capsule Cholecalcif 2021-1 Yes [id number] 2000U Take 1 [facility] perfecto, 1-08 capsule by ity of Vitamin D3, 00:00: mouth [place] (D3-1999) 00 daily. Medical 50 mcg Take with Branch (2,000 food. unit) capsule Cholecalcif 2021-1 Yes [id number] 2000U Take 1 [facility] perfecto, 1-08 capsule by ity of Vitamin D3, 00:00: mouth [place] (D3-1999) 00 daily. Medical 50 mcg Take with Branch (2,000 food. unit) capsule Cholecalcif 2021-1 Yes [id number] 2000U Take 1 [facility] perfecto, 1-08 capsule by ity of Vitamin D3, 00:00: mouth [place] (D3-1999) 00 daily. Medical 50 mcg Take with Branch (2,000 food. unit) capsule Cholecalcif 2021-1 Yes [id number] 2000U Take 1 [facility] perfect[facility], 1-08 capsule by ity of Vitamin D3, 00:00: mouth [place] (D3-1999) 00 daily. Medical 50 mcg Take with Branch (2,000 food. unit) capsule Cholecalcif 2021-1 Yes [id number] 2000U Take 1 [facility] perfect[facility], 1-08 capsule by ity of Vitamin D3, 00:00: mouth [place] (D3-2000) 00 daily. Medical 50 mcg Take with Branch (2,000 food. unit) capsule Cholecalcif 202- Yes [id number] 2000U Take 1 [facility] perfecto, 1-08 capsule by ity of Vitamin D3, 00:00: mouth [place] (D3-2000) 00 daily. Medical 50 mcg Take with Branch (2,000 food. unit) capsule Cholecalcif 2020- Yes [id number] 2000U Take 1 [facility] perfecto, 1-08 capsule by ity of Vitamin D3, 00:00: mouth [place] (D3-2000) 00 daily. Medical 50 mcg Take with Branch (2,000 food. unit) capsule Cholecalcif 2020- Yes [id number] 2000U Take 1 [facility] perfecto, 1-08 capsule by ity of Vitamin D3, 00:00: mouth [place] (D3-2000) 00 daily. Medical 50 mcg Take with Branch (2,000 food. unit) capsule Cholecalcif 2020- Yes [id number] 1999U Take 1 [facility] perfecto, 1-08 capsule by ity of Vitamin D3, 00:00: mouth [place] (D3-2000) 00 daily. Medical 50 mcg Take with Branch (2,000 food. unit) capsule Cholecalcif 2020- Yes [id number] 1999U Take 1 [facility] perfecto, 1-08 capsule by ity of Vitamin D3, 00:00: mouth [place] (D3-2000) 00 daily. Medical 50 mcg Take with Branch (2,000 food. unit) capsule Cholecalcif 202- Yes [id number] 2000U Take 1 [facility] perfecto, 1-08 capsule by ity of Vitamin D3, 00:00: mouth [place] (D3-2000) 00 daily. Medical 50 mcg Take with Branch (2,000 food. unit) capsule Cholecalcif 2021- Yes [id number] 2000U Take 1 [facility] perfecto, 1-08 capsule by ity of Vitamin D3, 00:00: mouth [place] (D3-2000) 00 daily. Medical 50 mcg Take with Branch (2,000 food. unit) capsule Cholecalcif 2021-1 Yes [id number] 2000U Take 1 [facility] perfecto, 1-08 capsule by ity of Vitamin D3, 00:00: mouth [place] (D3-2000) 00 daily. Medical 50 mcg Take with Branch (2,000 food. unit) capsule Cholecalcif 2021-1 Yes [id number] 2000U Take 1 [facility] perfecto, 1-08 capsule by ity of Vitamin D3, 00:00: mouth [place] (D3-1999) 00 daily. Medical 50 mcg Take with Branch (2,000 food. unit) capsule Cholecalcif 2021-1 Yes [id number] 2000U Take 1 [facility] perfecto, 1-08 capsule by ity of Vitamin D3, 00:00: mouth [place] (D3-1999) 00 daily. Medical 50 mcg Take with Branch (2,000 food. unit) capsule Cholecalcif 2021-1 Yes [id number] 2000U Take 1 [facility] perfecto, 1-08 capsule by ity of Vitamin D3, 00:00: mouth [place] (D3-1999) 00 daily. Medical 50 mcg Take with Branch (2,000 food. unit) capsule Cholecalcif 2021-1 Yes [id number] 2000U Take 1 [facility] perfecto, 1-08 capsule by ity of Vitamin D3, 00:00: mouth [place] (D3-1999) 00 daily. Medical 50 mcg Take with Branch (2,000 food. unit) capsule Cholecalcif 2021-1 Yes [id number] 2000U Take 1 [facility] perfecto, 1-08 capsule by ity of Vitamin D3, 00:00: mouth [place] (D3-1999) 00 daily. Medical 50 mcg Take with Branch (2,000 food. unit) capsule Cholecalcif 2021-1 Yes [id number] 2000U Take 1 [facility] perfecto, 1-08 capsule by ity of Vitamin D3, 00:00: mouth [place] (D3-1999) 00 daily. Medical 50 mcg Take with Branch (2,000 food. unit) capsule Cholecalcif 2021-1 Yes [id number] 2000U Take 1 [facility] perfecto, 1-08 capsule by ity of Vitamin D3, 00:00: mouth [place] (D3-1999) 00 daily. Medical 50 mcg Take with Branch (2,000 food. unit) capsule Cholecalcif 2021-1 Yes [id number] 2000U Take 1 [facility] perfect[facility], 1-08 capsule by ity of Vitamin D3, 00:00: mouth [place] (D3-1999) 00 daily. Medical 50 mcg Take with Branch (2,000 food. unit) capsule Cholecalcif 2021-1 Yes [id number] 1999U Take 1 [facility] perfect[facility], 1-08 capsule by ity of Vitamin D3, 00:00: mouth [place] (D3-2000) 00 daily. Medical 50 mcg Take with Branch (2,000 food. unit) capsule Cholecalcif 2021-1 Yes [id number] 1999U Take 1 [facility] perfect[facility], 1-08 capsule by ity of Vitamin D3, 00:00: mouth [place] (D3-2000) 00 daily. Medical 50 mcg Take with Branch (2,000 food. unit) capsule Cholecalcif 2021-1 Yes [id number] 1999U Take 1 [facility] perfecto, 1-08 capsule by ity of Vitamin D3, 00:00: mouth [place] (D3-2000) 00 daily. Medical 50 mcg Take with Branch (2,000 food. unit) capsule Cholecalcif 2021-1 Yes [id number] 1999U Take 1 [facility] perfect[facility], 1-08 capsule by ity of Vitamin D3, 00:00: mouth [place] (D3-2000) 00 daily. Medical 50 mcg Take with Branch (2,000 food. unit) capsule Cholecalcif 2021-1 Yes [id number] 1999U Take 1 [facility] perfect[facility], 1-08 capsule by ity of Vitamin D3, 00:00: mouth [place] (D3-1999) 00 daily. Medical 50 mcg Take with Branch (2,000 food. unit) capsule Cholecalcif 2021-1 Yes [id number] 1999U Take 1 [facility] perfect[facility], 1-08 capsule by ity of Vitamin D3, 00:00: mouth [place] (D3-2000) 00 daily. Medical 50 mcg Take with Branch (2,000 food. unit) capsule Cholecalcif 2021-1 Yes [id number] 1999U Take 1 [facility] perfecto, 1-08 capsule by ity of Vitamin D3, 00:00: mouth [place] (D3-2000) 00 daily. Medical 50 mcg Take with Branch (2,000 food. unit) capsule Cholecalcif 2021-1 Yes [id number] 1999U Take 1 [facility] perfect[facility], 1-08 capsule by ity of Vitamin D3, 00:00: mouth [place] (D3-2000) 00 daily. Medical 50 mcg Take with Branch (2,000 food. unit) capsule Cholecalcif 2021-1 Yes [id number] 1999U Take 1 [facility] perfect[facility], 1-08 capsule by ity of Vitamin D3, 00:00: mouth [place] (D3-1999) 00 daily. Medical 50 mcg Take with Branch (2,000 food. unit) capsule Cholecalcif 2021-1 Yes [id number] 2000U Take 1 [facility] perfect[facility], 1-08 capsule by ity of Vitamin D3, 00:00: mouth [place] (D3-1999) 00 daily. Medical 50 mcg Take with Branch (2,000 food. unit) capsule Cholecalcif 2021-1 Yes [id number] 2000U Take 1 [facility] perfect[facility], 1-08 capsule by ity of Vitamin D3, 00:00: mouth [place] (D3-1999) 00 daily. Medical 50 mcg Take with Branch (2,000 food. unit) capsule Cholecalcif 2021-1 Yes [id number] 2000U Take 1 [facility] perfecto, 1-08 capsule by ity of Vitamin D3, 00:00: mouth [place] (D3-1999) 00 daily. Medical 50 mcg Take with Branch (2,000 food. unit) capsule Cholecalcif 2021-1 Yes [id number] 2000U Take 1 [facility] perfect[facility], 1-08 capsule by ity of Vitamin D3, 00:00: mouth [place] (D3-1999) 00 daily. Medical 50 mcg Take with Branch (2,000 food. unit) capsule Cholecalcif 2021-1 Yes [id number] 2000U Take 1 [facility] perfect[facility], 1-08 capsule by ity of Vitamin D3, 00:00: mouth [place] (D3-1999) 00 daily. Medical 50 mcg Take with Branch (2,000 food. unit) capsule Cholecalcif 2021-1 Yes [id number] 2000U Take 1 [facility] perfect[facility], 1-08 capsule by ity of Vitamin D3, 00:00: mouth [place] (D3-1999) 00 daily. Medical 50 mcg Take with Branch (2,000 food. unit) capsule Cholecalcif 2021-1 Yes [id number] 2000U Take 1 [facility] perfecto, 1-08 capsule by ity of Vitamin D3, 00:00: mouth [place] (D3-1999) 00 daily. Medical 50 mcg Take with Branch (2,000 food. unit) capsule Cholecalcif 2021-1 Yes [id number] 2000U Take 1 [facility] perfecto, 1-08 capsule by ity of Vitamin D3, 00:00: mouth [place] (D3-1999) 00 daily. Medical 50 mcg Take with Branch (2,000 food. unit) capsule Cholecalcif 2021-1 Yes [id number] 2000U Take 1 [facility] perfecto, 1-08 capsule by ity of Vitamin D3, 00:00: mouth [place] (D3-1999) 00 daily. Medical 50 mcg Take with Branch (2,000 food. unit) capsule Cholecalcif 2021-1 Yes [id number] 2000U Take 1 [facility] perfecto, 1-08 capsule by ity of Vitamin D3, 00:00: mouth [place] (D3-1999) 00 daily. Medical 50 mcg Take with Branch (2,000 food. unit) capsule Cholecalcif 2021-1 Yes [id number] 2000U Take 1 [facility] perfecto, 1-08 capsule by ity of Vitamin D3, 00:00: mouth [place] (D3-1999) 00 daily. Medical 50 mcg Take with Branch (2,000 food. unit) capsule Cholecalcif 2021-1 Yes [id number] 2000U Take 1 [facility] perfecto, 1-08 capsule by ity of Vitamin D3, 00:00: mouth [place] (D3-1999) 00 daily. Medical 50 mcg Take with Branch (2,000 food. unit) capsule Cholecalcif 2021-1 Yes [id number] 1999U Take 1 [facility] perfecto, 1-08 capsule by ity of Vitamin D3, 00:00: mouth [place] (D3-1999) 00 daily. Medical 50 mcg Take with Branch (2,000 food. unit) capsule Cholecalcif 2021-1 Yes [id number] 1999U Take 1 [facility] perfecto, 1-08 capsule by ity of Vitamin D3, 00:00: mouth [place] (D3-1999) 00 daily. Medical 50 mcg Take with Branch (2,000 food. unit) capsule Cholecalcif 2021-1 Yes [id number] 2000U Take 1 [facility] perfecto, 1-08 capsule by ity of Vitamin D3, 00:00: mouth [place] (D3-2000) 00 daily. Medical 50 mcg Take with Branch (2,000 food. unit) capsule Cholecalcif 2021-1 Yes [id number] 2000U Take 1 [facility] perfecto, 1-08 capsule by ity of Vitamin D3, 00:00: mouth [place] (D3-2000) 00 daily. Medical 50 mcg Take with Branch (2,000 food. unit) capsule Cholecalcif 2021-1 Yes [id number] 2000U Take 1 [facility] perfecto, 1-08 capsule by ity of Vitamin D3, 00:00: mouth [place] (D3-1999) 00 daily. Medical 50 mcg Take with Branch (2,000 food. unit) capsule Cholecalcif 2020-05 Yes [id number] 1999U Take 1 [facility] perfecto, 1-08 capsule by ity of Vitamin D3, 00:00: mouth [place] (D3-1999) 00 daily. Medical 50 mcg Take with Branch (2,000 food. unit) capsule Cholecalcif 2020-05 Yes [id number] 1999U Take 1 [facility] perfecto, 1-08 capsule by ity of Vitamin D3, 00:00: mouth [place] (D3-1999) 00 daily. Medical 50 mcg Take with Branch (2,000 food. unit) capsule Cholecalcif 2020-05 Yes [id number] 1999U Take 1 [facility] perfecto, 1-08 capsule by ity of Vitamin D3, 00:00: mouth [place] (D3-1999) 00 daily. Medical 50 mcg Take [...] :00 bedtime. Medical Branch icosapent 2020-05 Yes [id number] 2g Take 2 U nivers ethyL 0-19 capsules ity of (VASCEPA) 1 00:00: by mouth 2 [place] gram 00 (two) Medical capsule times Branch daily. icosapent 2020-05 Yes [id number] 2g Take 2 U nivers ethyL 0-19 capsules ity of (VASCEPA) 1 00:00: by mouth 2 [place] gram 00 (two) Medical capsule times Branch daily. icosapent 2020-05- No [id number] 2g Take 2 Univers ethyL 0-19 09-26 capsules ity of (VASCEPA) 1 00:00: 00:00 by mouth 2 [place] gram 00 :00 (two) Medical capsule times Branch daily. icosapent 2020-05- No [id number] 2g Take 2 [facility] ethyL 0-19 09-26 capsules ity of (VASCEPA) 1 00:00: 00:00 by mouth 2 [place] gram 00 :00 (two) Medical capsule times Branch daily. NIFEdipine 2020-05- No 30mg Take 30 mg Univers XL 0-12 10-12 by mouth 2 ity of (PROCARDIA 10:40: 00:00 (two) [place] XL) 30 mg 45 :00 times Medical 24 hr daily. Branch tablet NIFEdipine 2020-05 No 30mg Take 30 mg Univers XL 0-12 10-12 by mouth 2 ity of (PROCARDIA 10:40: 00:00 (two) [place] XL) 30 mg 45 :00 times Medical 24 hr daily. Branch tablet METFORMIN 2020-05- No [id number] TAKE 1 [facility] 500 mg 0-11 03-24 TABLET BY ity of tablet 00:00: 00:00 MOUTH [place] 00 :00 TWICE A Medical DAY WITH Branch MEALS METFORMIN 2020-05- No [id number] TAKE 1 [facility] 500 mg 0-11 03-24 [...] :00 daily. Medical Branch metFORMIN 2020- No [id number] 500mg Take 1 [facility] 500 mg 4-20 10-11 tablet by ity of tablet 00:00: 00:00 mouth 2 [place] 00 :00 (two) Medical times Branch daily with meals. metFORMIN 2020- No [id number] 500mg Take 1 [facility] 500 mg 4-20 10-11 tablet by ity of tablet 00:00: 00:00 mouth 2 [place] 00 :00 (two) Medical times Branch daily with meals. losartan 50 2019-05- No [id number] 50mg Take 1 [facility] mg tablet 05-14- tablet by ity of 00:00: 00:00 mouth 2 [place] 00 :00 (two) Medical times Branch daily. losartan 50 2019-05- No [id number] 50mg Take 1 [facility] mg tablet 05-14- tablet by ity of 00:00: 00:00 mouth 2 [place] 00 :00 (two) Medical times Branch daily. Incontinenc 2018-05 Yes Use as Univers e Pad, 1-22 directed; ity of Liner, Disp 00:00: ICD-10 [place] P[place] 00 DIAGNOSIS Medical CODE R32 Branch Diaper,Brie 2018-05 Yes [id number] Use as Univers f, 1-22 directed; ity of Adult,Dispo 00:00: ICD-10 [place] 00 DIAGNOSIS Medical (WINGS XXL CODE R32 Branc h ADULT BRIEF) [facility] [place] Incontinenc 2018-05 Yes [id number] Use as Univers e Pad, 1-22 directed; ity of Liner, Disp 00:00: ICD-10 [place] P[place] 00 DIAGNOSIS Medical CODE R32 Branch Diaper,Brie 2019 Yes [id number] Use as Univers f, 1-22 directed; ity of Adult,Dispo 00:00: ICD-10 [place] 00 DIAGNOSIS Medical (WINGS XXL CODE R32 Branc h ADULT BRIEF) [facility] Yes [id number] Use as Univers e Pad, 1-22 directed; ity of Liner, Disp 00:00: ICD-10 [place] P[place] 00 DIAGNOSIS Medical CODE R32 Branch Diaper,Brie 2018-05 Yes [id number] Use as Univers f, 1-22 directed; ity of Adult,Dispo 00:00: ICD-10 [place] 00 DIAGNOSIS Medical (WINGS XXL CODE R32 Branc h ADULT BRIEF) Misc Incontinenc 2018-05 Yes [id number] Use as Univers e Pad, 1-22 directed; ity of Liner, Disp 00:00: ICD-10 [place] P[place] 00 DIAGNOSIS Medical CODE R32 Branch Diaper,Brie 2019- Yes Use as Univers f, -22 directed; ity of Adult,Dispo 00:00: ICD-10 [place] 00 DIAGNOSIS Medical (WINGS XXL CODE R32 Branc h ADULT BRIEF) [facility] [place] Incontinenc 2019- Yes Use as Univers e Pad, -22 directed; ity of Liner, Disp 00:00: ICD-10 [place] P[place] 00 DIAGNOSIS Medical CODE R32 Branch Diaper,Brie 2019- Yes Use as Univers f, -22 directed; ity of Adult,Dispo 00:00: ICD-10 [place] 00 DIAGNOSIS Medical (WINGS XXL CODE R32 Branc h ADULT BRIEF) [facility] [place] Incontinenc 2019 Yes Use as Univers e Pad, -22 directed; ity of Liner, Disp 00:00: ICD-10 [place] P[place] 00 DIAGNOSIS Medical CODE R32 Branch Diaper,Brie 2019- Yes [id number] Use as Univers f, -22 directed; ity of Adult,Dispo 00:00: ICD-10 [place] 00 DIAGNOSIS Medical (WINGS XXL CODE R32 Branc h ADULT BRIEF) [facility] [place] Incontinenc 2019 Yes Use as Univers e Pad, -22 directed; ity of Liner, Disp 00:00: ICD-10 [place] P[place] 00 DIAGNOSIS Medical CODE R32 Branch Diaper,Brie 2019- Yes [id number] Use as Univers f, -22 directed; ity of Adult,Dispo 00:00: ICD-10 [place] 00 DIAGNOSIS Medical (WINGS XXL CODE R32 Branc h ADULT BRIEF) [facility] [place] Incontinenc 2019- Yes [id number] Use as Univers e Pad, -22 directed; ity of Liner, Disp 00:00: ICD-10 [place] P[place] 00 DIAGNOSIS Medical CODE R32 Branch Diaper,Brie 2019- Yes [id number] Use as Univers f, 1-22 directed; ity of Adult,Dispo 00:00: ICD-10 [place] 00 DIAGNOSIS Medical (WINGS XXL CODE R32 Branc h ADULT BRIEF) [facility] [place] Incontinenc 2019- Yes [id number] Use as Univers e Pad, 1-22 directed; ity of Liner, Disp 00:00: ICD-10 [place] P[place] 00 DIAGNOSIS Medical CODE R32 Branch Diaper,Brie 2019- Yes [id number] Use as Univers f, -22 directed; ity of Adult,Dispo 00:00: ICD-10 [place] 00 DIAGNOSIS Medical (WINGS XXL CODE R32 Branc h ADULT BRIEF) [facility] [place] Incontinenc 2018-05 Yes [id number] Use as Univers e Pad, -22 directed; ity of Liner, Disp 00:00: ICD-10 [place] P[place] 00 DIAGNOSIS Medical CODE R32 Branch Diaper,Brie 2019 Yes Use as Univers f, - directed; ity of Adult,Dispo 00:00: ICD-10 [place] 00 DIAGNOSIS Medical (WINGS XXL CODE R32 Branc h ADULT BRIEF) [facility] [place] Incontinenc 2018-05 Yes [id number] Use as Univers e Pad, -22 directed; ity of Liner, Disp 00:00: ICD-10 [place] P[place] 00 DIAGNOSIS Medical CODE R32 Branch Diaper,Brie 2019- Yes [id number] Use as Univers f, -22 directed; ity of Adult,Dispo 00:00: ICD-10 [place] 00 DIAGNOSIS Medical (WINGS XXL CODE R32 Branc h ADULT BRIEF) [facility] [place] Incontinenc 2019 Yes Use as Univers e Pad, -22 directed; ity of Liner, Disp 00:00: ICD-10 [place] P[place] 00 DIAGNOSIS Medical CODE R32 Branch Diaper,Brie 2019- Yes [id number] Use as Univers f, 1-22 directed; ity of Adult,Dispo 00:00: ICD-10 [place] 00 DIAGNOSIS Medical (WINGS XXL CODE R32 Branc h ADULT BRIEF) [facility] [place] Incontinenc 2018-05 Yes Use as Univers e Pad, -22 directed; ity of Liner, Disp 00:00: ICD-10 [place] P[place] 00 DIAGNOSIS Medical CODE R32 Branch Diaper,Brie 2019- Yes Use as Univers f, 1-22 directed; ity of Adult,Dispo 00:00: ICD-10 [place] 00 DIAGNOSIS Medical (WINGS XXL CODE R32 Branc h ADULT BRIEF) [facility] [place] Incontinenc 2018-05 Yes Use as Univers e Pad, -22 directed; ity of Liner, Disp 00:00: ICD-10 [place] P[place] 00 DIAGNOSIS Medical CODE R32 Branch Diaper,Brie 2019 Yes Use as Univers f, -22 directed; ity of Adult,Dispo 00:00: ICD-10 [place] 00 DIAGNOSIS Medical (WINGS XXL CODE R32 Branc h ADULT BRIEF) [facility] [place] Incontinenc 2018-05 Yes Use as Univers e Pad, -22 directed; ity of Liner, Disp 00:00: ICD-10 [place] P[place] 00 DIAGNOSIS Medical CODE R32 Branch Diaper,Brie 2019 Yes Use as Univers f, -22 directed; ity of Adult,Dispo 00:00: ICD-10 [place] 00 DIAGNOSIS Medical (WINGS XXL CODE R32 Branc h ADULT BRIEF) [facility] [place] Incontinenc 2018-05 Yes Use as Univers e Pad, -22 directed; ity of Liner, Disp 00:00: ICD-10 [place] P[place] 00 DIAGNOSIS Medical CODE R32 Branch Diaper,Brie 2018-05 Yes [id number] Use as Univers f, -22 directed; ity of Adult,Dispo 00:00: ICD-10 [place] 00 DIAGNOSIS Medical (WINGS XXL CODE R32 Branc h ADULT BRIEF) [facility] [place] Incontinenc 2018-05 Yes Use as Univers e Pad, 1-22 directed; ity of Liner, Disp 00:00: ICD-10 [place] P[place] 00 DIAGNOSIS Medical CODE R32 Branch Diaper,Brie 2019 Yes [id number] Use as Univers f, 1-22 directed; ity of Adult,Dis[place] 00:[place]: [place] DIAGNOSIS Medical (WINGS XXL CODE R32 Branc h ADULT BRIEF) [facility] [place] 2018-05 Yes Use as Univers e Pad, 1-22 directed; ity of [place], Disp 00:00: [place]10 [place] DIAGNOSIS Medical CODE R32 Branch Diaper,Brie 2019- Yes [id number] Use as Univers f, 1-22 directed; ity of Adult,Dispo 00:00: [place]-10 [place] DIAGNOSIS Medical (WINGS XXL CODE R32 Branc h ADULT BRIEF) Misc Incontinenc 2019- Yes [id number] Use as Univers e Pad, 1-22 directed; ity of [place], Disp 00:00: [place]-10 [place] DIAGNOSIS Medical CODE R32 Branch Diaper,Brie 2019- Yes [id number] Use as Univers f, 1-22 directed; ity of Adult,Dispo 00:00: [place]-10 [place] DIAGNOSIS Medical (WINGS XXL CODE R32 Branc h ADULT BRIEF) Misc Incontinenc 2019 Yes [id number] Use as Univers e Pad, -22 directed; ity of Liner, Disp 00:00: [place]-10 [place] DIAGNOSIS Medical CODE R32 Branch Diaper,Brie 2019 Yes [id number] Use as Univers f, 1-22 directed; ity of Adult,Dispo 00:00: [place]-10 [place] DIAGNOSIS Medical (WINGS XXL CODE R32 Branc h ADULT BRIEF) Misc Incontinenc 2019 Yes [id number] Use as Univers e Pad, -22 directed; ity of [place], Disp 00:00: [place]-10 [place] DIAGNOSIS Medical CODE R32 Branch Diaper,Brie 2019- Yes [id number] Use as Univers f, 1-22 directed; ity of Adult,Dispo 00:00: [place]-10 [place] DIAGNOSIS Medical (WINGS XXL CODE R32 Branc h ADULT BRIEF) Misc Incontinenc 2019- Yes [id number] Use as Univers e Pad, 1-22 directed; ity of [place], Disp 00:00: [place]-10 [place] DIAGNOSIS Medical CODE R32 Branch Diaper,Brie 2019 Yes [id number] Use as Univers f, 1-22 directed; ity of Adult,Dispo 00:00: [place]-10 [place] DIAGNOSIS Medical (WINGS XXL CODE R32 Branc h ADULT BRIEF) Misc Incontinenc 2018-05 Yes [id number] Use as Univers e Pad, -22 directed; ity of [place], Disp 00:00: [place]-10 [place] DIAGNOSIS Medical CODE R32 Branch Diaper,Brie 2019 Yes [id number] Use as Univers f, -22 directed; ity of Adult,Dispo 00:00: [place]-10 [place] DIAGNOSIS Medical (WINGS XXL CODE R32 Branc h ADULT BRIEF) [facility] [place] 2018-05 Yes Use as Univers e Pad, -22 directed; ity of [place], Disp 00:00: [place]-10 [place] DIAGNOSIS Medical CODE R32 Branch Diaper,Brie 2019 Yes Use as Univers f, - directed; ity of Adult,Dispo 00:00: [place]-10 [place] 00 DIAGNOSIS Medical (WINGS XXL CODE R32 Bran h ADULT BRIEF) [facility] [place] 2018-05 Yes Use as Univers e Pad, -22 directed; ity of Liner, Disp 00:00: [place]-10 [place] 00 DIAGNOSIS Medical CODE R32 Branch Diaper,Brie 2019 Yes [id number] Use as Univers f, -22 directed; ity of Adult,Dispo 00:00: [place]-10 [place] 00 DIAGNOSIS Medical (WINGS XXL CODE R32 Branc h ADULT BRIEF) [facility] [place] 2018-05 Yes Use as Univers e Pad, -22 directed; ity of Liner, Disp 00:00: [place]-10 [place] 00 DIAGNOSIS Medical CODE R32 Branch Diaper,Brie 2019 Yes [id number] Use as Univers f, -22 directed; ity of Adult,Dispo 00:00: [place]-10 [place] 00 DIAGNOSIS Medical (WINGS XXL CODE R32 Branc h ADULT BRIEF) [facility] [place] 2018-05 Yes Use as Univers e Pad, -22 directed; ity of Liner, Disp 00:00: [place]-10 [place] 00 DIAGNOSIS Medical CODE R32 Branch Diaper,Brie 2019 Yes Use as Univers f, -22 directed; ity of Adult,Dispo 00:00: [place]-10 [place] 00 DIAGNOSIS Medical (WINGS XXL CODE R32 Branc h ADULT BRIEF) [facility] [place] 2019- Yes [id number] Use as Univers e Pad, -22 directed; ity of Liner, Disp 00:00: [place]-10 [place] 00 DIAGNOSIS Medical CODE R32 Branch Diaper,Brie 2019- Yes [id number] Use as Univers f, -22 directed; ity of Adult,Dispo 00:00: [place]-10 [place] 00 DIAGNOSIS Medical (WINGS XXL CODE R32 Branc h ADULT BRIEF) [facility] [place] 2019 Yes [id number] Use as Univers e Pad, -22 directed; ity of Liner, Disp 00:00: [place]-10 [place] 00 DIAGNOSIS Medical CODE R32 Branch Diaper,Brie 2019- Yes [id number] Use as Univers f, -22 directed; ity of Adult,Dispo 00:00: [place]-10 [place] 00 DIAGNOSIS Medical (WINGS XXL CODE R32 Branc h ADULT BRIEF) [facility] [place] 2018-05 Yes [id number] Use as Univers e Pad, -22 directed; ity of Liner, Disp 00:00: [place]-10 [place] 00 DIAGNOSIS Medical CODE R32 Branch Diaper,Brie 2019- Yes [id number] Use as Univers f, -22 directed; ity of Adult,Dispo 00:00: [place]-10 [place] 00 DIAGNOSIS Medical (WINGS XXL CODE R32 Branc h ADULT BRIEF) [facility] [place] 2019 Yes [id number] Use as Univers e Pad, -22 directed; ity of Liner, Disp 00:00: [place]-10 [place] 00 DIAGNOSIS Medical CODE R32 Branch Diaper,Brie 2019- Yes [id number] Use as Univers f, -22 directed; ity of Adult,Dispo 00:00: [place]-10 [place] 00 DIAGNOSIS Medical (WINGS XXL CODE R32 Branc h ADULT BRIEF) [facility] [place] 2019 Yes [id number] Use as Univers e Pad, -22 directed; ity of Liner, Disp 00:00: [place]-10 [place] 00 DIAGNOSIS Medical CODE R32 Branch Diaper,Brie 2019 Yes [id number] Use as Univers f, 1-22 directed; ity of Adult,Dispo 00:00: [place]-10 [place] 00 DIAGNOSIS Medical (WINGS XXL CODE R32 Branc h ADULT BRIEF) Misc Incontinenc 2018-05 Yes [id number] Use as Univers e Pad, -22 directed; ity of Liner, Disp 00:00: [place]-10 [place] 00 DIAGNOSIS Medical CODE R32 Branch Diaper,Brie 2019 Yes [id number] Use as Univers f, -22 directed; ity of Adult,Dispo 00:00: [place]-10 [place] 00 DIAGNOSIS Medical (WINGS XXL CODE R32 Branc h ADULT BRIEF) Misc Incontinenc 2018-05 Yes [id number] Use as Univers e Pad, - directed; ity of Liner, Disp 00:00: [place]-10 [place] 00 DIAGNOSIS Medical CODE R32 Branch Diaper,Brie 2019 Yes [id number] Use as Univers f, -22 directed; ity of Adult,Dispo 00:00: [place]-10 [place] 00 DIAGNOSIS Medical (WINGS XXL CODE R32 Branc h ADULT BRIEF) Misc Incontinenc 2018-05 Yes [id number] Use as Univers e Pad, -22 directed; ity of [place], Disp 00:00: [place]-10 [place] 00 DIAGNOSIS Medical CODE R32 Branch Diaper,Brie 2019 Yes [id number] Use as Univers f, -22 directed; ity of Adult,Dispo 00:00: [place]-10 [place] 00 DIAGNOSIS Medical (WINGS XXL CODE R32 Branc h ADULT BRIEF) Misc Incontinenc 2018-05 Yes [id number] Use as Univers e Pad, -22 directed; ity of [place], Disp 00:00: [place]-10 [place] 00 DIAGNOSIS Medical CODE R32 Branch Diaper,Brie 2019 Yes [id number] Use as Univers f, -22 directed; ity of Adult,Dispo 00:00: [place]-10 [place] 00 DIAGNOSIS Medical (WINGS XXL CODE R32 Branc h ADULT BRIEF) Misc Incontinenc 2018-05 Yes [id number] Use as Univers e Pad, 1-22 directed; ity of [place], Disp 00:00: [place]-10 [place] 00 DIAGNOSIS Medical CODE R32 Branch Diaper,Brie 2019- Yes Use as Univers f, -22 directed; ity of Adult,Dispo 00:00: [place]-10 [place] 00 DIAGNOSIS Medical (WINGS XXL CODE R32 Branc h ADULT BRIEF) [facility] [place] 2019- Yes Use as Univers e Pad, -22 directed; ity of Liner, Disp 00:00: [place]-10 [place] 00 DIAGNOSIS Medical CODE R32 Branch Diaper,Brie 2019- Yes Use as Univers f, -22 directed; ity of Adult,Dispo 00:00: [place]-10 [place] 00 DIAGNOSIS Medical (WINGS XXL CODE R32 Branc h ADULT BRIEF) [facility] [place] 2019- Yes Use as Univers e Pad, -22 directed; ity of Liner, Disp 00:00: [place]-10 [place] 00 DIAGNOSIS Medical CODE R32 Branch Diaper,Brie 2019- Yes [id number] Use as Univers f, -22 directed; ity of Adult,Dispo 00:00: [place]-10 [place] 00 DIAGNOSIS Medical (WINGS XXL CODE R32 Branc h ADULT BRIEF) [facility] [place] 2019 Yes Use as Univers e Pad, -22 directed; ity of Liner, Disp 00:00: [place]-10 [place] 00 DIAGNOSIS Medical CODE R32 Branch Diaper,Brie 2019- Yes [id number] Use as Univers f, -22 directed; ity of Adult,Dispo 00:00: [place]-10 [place] 00 DIAGNOSIS Medical (WINGS XXL CODE R32 Branc h ADULT BRIEF) [facility] [place] 2019- Yes Use as Univers e Pad, -22 directed; ity of Liner, Disp 00:00: [place]-10 [place] 00 DIAGNOSIS Medical CODE R32 Branch Diaper,Brie 2019- Yes [id number] Use as Univers f, 1-22 directed; ity of Adult,Dispo 00:00: [place]-10 [place] 00 DIAGNOSIS Medical (WINGS XXL CODE R32 Branc h ADULT BRIEF) [facility] [place] 2018- Yes [id number] Use as Univers e Pad, 1-22 directed; ity of Liner, Disp 00:00: [place]-10 [place] 00 DIAGNOSIS Medical CODE R32 Branch Diaper,Brie 2019- Yes [id number] Use as Univers f, -22 directed; ity of Adult,Dispo 00:00: [place]-10 [place] 00 DIAGNOSIS Medical (WINGS XXL CODE R32 Branc h ADULT BRIEF) [facility] [place] 2018-05 Yes [id number] Use as Univers e Pad, -22 directed; ity of Liner, Disp 00:00: [place]-10 [place] 00 DIAGNOSIS Medical CODE R32 Branch Diaper,Brie 2019- Yes [id number] Use as Univers f, -22 directed; ity of Adult,Dispo 00:00: [place]-10 [place] 00 DIAGNOSIS Medical (WINGS XXL CODE R32 Branc h ADULT BRIEF) [facility] [place] 2018-05 Yes [id number] Use as Univers e Pad, -22 directed; ity of Liner, Disp 00:00: [place]-10 [place] 00 DIAGNOSIS Medical CODE R32 Branch Diaper,Brie 2019- Yes [id number] Use as Univers f, -22 directed; ity of Adult,Dispo 00:00: [place]-10 [place] 00 DIAGNOSIS Medical (WINGS XXL CODE R32 Branc h ADULT BRIEF) [facility] [place] 2019 Yes [id number] Use as Univers e Pad, -22 directed; ity of Liner, Disp 00:00: [place]-10 [place] 00 DIAGNOSIS Medical CODE R32 Branch Diaper,Brie 2019- Yes [id number] Use as Univers f, 1-22 directed; ity of Adult,Dispo 00:00: [place]-10 [place] 00 DIAGNOSIS Medical (WINGS XXL CODE R32 Branc h ADULT BRIEF) [facility] [place] In[place]enc 2018-05 Yes [id number] Use as Univers e Pad, 1-22 directed; ity of Liner, Disp 00:00: [place]-10 [place] 00 DIAGNOSIS Medical CODE R32 Branch Diaper,Brie 2019- Yes [id number] Use as Univers f, 1-22 directed; ity of Adult,Dispo 00:00: [place]-10 [place] 00 DIAGNOSIS Medical (WINGS XXL CODE R32 Branc h ADULT BRIEF) [facility] Yes Use as Univers e Pad, 1-22 directed; ity of Liner, Disp 00:00: ICD-10 [place] 00 DIAGNOSIS Medical CODE R32 Branch Diaper,Brie 2019- Yes Use as Univers f, 1-22 directed; ity of Adult,Dispo 00:00: [place]-10 [place] 00 DIAGNOSIS Medical (WINGS XXL CODE R32 Branc h ADULT BRIEF) [facility] [place]contin[place] 2018-05 Yes Use as Univers e Pad, -22 directed; ity of Liner, Disp 00:00: [place]-10 [place] 00 DIAGNOSIS Medical CODE R32 Branch Diaper,Brie 2019 Yes Use as Univers f, 1-22 directed; ity of Adult,Dispo 00:00: [place]-10 [place] 00 DIAGNOSIS Medical (WINGS XXL CODE R32 Branc h ADULT BRIEF) [facility] [place] 2018-05 Yes Use as Univers e Pad, 1-22 directed; ity of Liner, Disp 00:00: [place]-10 [place] 00 DIAGNOSIS Medical CODE R32 Branch Diaper,Brie 2019- Yes [id number] Use as Univers f, 1-22 directed; ity of Adult,Dispo 00:00: [place]-10 [place] 00 DIAGNOSIS Medical (WINGS XXL CODE R32 Branc h ADULT BRIEF) [facility] [place] Incontinenc 2018-05 Yes Use as Univers e Pad, 1-22 directed; ity of Liner, Disp 00:00: [place]-10 [place] 00 DIAGNOSIS Medical CODE R32 Branch Diaper,Brie 2019- Yes [id number] Use as Univers f, 1-22 directed; ity of Adult,Dispo 00:00: [place]-10 [place] 00 DIAGNOSIS Medical (WINGS XXL CODE R32 Branc h ADULT BRIEF) [facility] [place] Incontinenc 2018-05 Yes Use as Univers e Pad, 1-22 directed; ity of Liner, Disp 00:00: [place]-10 [place] 00 DIAGNOSIS Medical CODE R32 Branch Diaper,Brie 2019- Yes [id number] Use as Univers f, 1-22 directed; ity of Adult,Dispo 00:00: [place]-10 [place] 00 DIAGNOSIS Medical (WINGS XXL CODE R32 Branc h ADULT BRIEF) Misc Incontinenc 2019- Yes [id number] Use as Univers e Pad, 1-22 directed; ity of Liner, Disp 00:00: ICD-10 [place] 00 DIAGNOSIS Medical CODE R32 Branch Diaper,Brie 2019- Yes [id number] Use as Univers f, 1-22 directed; ity of Adult,Dispo 00:00: [place]-10 [place] 00 DIAGNOSIS Medical (WINGS XXL CODE R32 Branc h ADULT BRIEF) Misc Incontinenc 2018-05 Yes [id number] Use as Univers e Pad, 1-22 directed; ity of Liner, Disp 00:00: [place]-10 [place] 00 DIAGNOSIS Medical CODE R32 Branch Diaper,Brie 2019 Yes [id number] Use as Univers f, 1-22 directed; ity of Adult,Dispo 00:00: [place]-10 [place] 00 DIAGNOSIS Medical (WINGS XXL CODE R32 Branc h ADULT BRIEF) Misc Incontinenc 2019 Yes [id number] Use as Univers e Pad, 1-22 directed; ity of Liner, Disp 00:00: ICD-10 [place] 00 DIAGNOSIS Medical CODE R32 Branch Diaper,Brie 2019- Yes [id number] Use as Univers f, 1-22 directed; ity of Adult,Dispo 00:00: [place]-10 [place] 00 DIAGNOSIS Medical (WINGS XXL CODE R32 Branc h ADULT BRIEF) Misc Incontinenc 2019- Yes [id number] Use as Univers e Pad, 1-22 directed; ity of Liner, Disp 00:00: ICD-10 [place] 00 DIAGNOSIS Medical CODE R32 Branch Diaper,Brie 2019- Yes [id number] Use as Univers f, 1-22 directed; ity of Adult,Dispo 00:00: [place]-10 [place] 00 DIAGNOSIS Medical (WINGS XXL CODE R32 Branc h ADULT BRIEF) Misc Incontinenc 2018-05 Yes [id number] Use as Univers e Pad, -22 directed; ity of Liner, Disp 00:00: ICD-10 [place] 00 DIAGNOSIS Medical CODE R32 Branch Diaper,Brie 2019 Yes [id number] Use as Univers f, -22 directed; ity of Adult,Dispo 00:00: [place]-10 [place] 00 DIAGNOSIS Medical (WINGS XXL CODE R32 Bran h ADULT BRIEF) [facility] [place] 2018-05 Yes [id number] Use as Univers e Pad, -22 directed; ity of Liner, Disp 00:00: ICD-10 [place] 00 DIAGNOSIS Medical CODE R32 Branch Diaper,Brie 2019 Yes Use as Univers f, - directed; ity of Adult,Dispo 00:00: [place]-10 [place] 00 DIAGNOSIS Medical (WINGS XXL CODE R32 Bran h ADULT BRIEF) [facility] [place] 2018-05 Yes Use as Univers e Pad, -22 directed; ity of Liner, Disp 00:00: ICD-10 [place] 00 DIAGNOSIS Medical CODE R32 Branch Diaper,Brie 2019 Yes [id number] Use as Univers f, -22 directed; ity of Adult,Dispo 00:00: [place]-10 [place] 00 DIAGNOSIS Medical (WINGS XXL CODE R32 Bran h ADULT BRIEF) [facility] [place] 2018-05 Yes Use as Univers e Pad, -22 directed; ity of Liner, Disp 00:00: [place]-10 [place] 00 DIAGNOSIS Medical CODE R32 Branch Diaper,Brie 2019- Yes [id number] Use as Univers f, -22 directed; ity of Adult,Dispo 00:00: [place]-10 [place] 00 DIAGNOSIS Medical (WINGS XXL CODE R32 Bran h ADULT BRIEF) [facility] [place] 2018-05 Yes [id number] Use as Univers e Pad, -22 directed; ity of Liner, Disp 00:00: ICD-10 [place] 00 DIAGNOSIS Medical CODE R32 Branch Diaper,Brie 2019 Yes [id number] Use as Univers f, -22 directed; ity of Adult,Dispo 00:00: [place]-10 [place] 00 DIAGNOSIS Medical (WINGS XXL CODE R32 Branc h ADULT BRIEF) [facility] [id number] Use as Univers e Pad, -22 directed; ity of Liner, Disp 00:00: ICD-10 [place] 00 DIAGNOSIS Medical CODE R32 Branch Diaper,Brie 2019- Yes [id number] Use as Univers f, -22 directed; ity of Adult,Dispo 00:00: [place]-10 [place] 00 DIAGNOSIS Medical (WINGS XXL CODE R32 Branc h ADULT BRIEF) [facility] [place] 2018-05 Yes [id number] Use as Univers e Pad, -22 directed; ity of Liner, Disp 00:00: [place]-10 [place] 00 DIAGNOSIS Medical CODE R32 Branch Diaper,Brie 2019- Yes [id number] Use as Univers f, -22 directed; ity of Adult,Dispo 00:00: [place]-10 [place] 00 DIAGNOSIS Medical (WINGS XXL CODE R32 Branc h ADULT BRIEF) [facility] [place] 2018-05 Yes [id number] Use as Univers e Pad, -22 directed; ity of Liner, Disp 00:00: [place]-10 [place] 00 DIAGNOSIS Medical CODE R32 Branch Diaper,Brie 2019- Yes [id number] Use as Univers f, -22 directed; ity of Adult,Dispo 00:00: [place]-10 [place] 00 DIAGNOSIS Medical (WINGS XXL CODE R32 Branc h ADULT BRIEF) [facility] [place] 2019 Yes [id number] Use as Univers e Pad, -22 directed; ity of Liner, Disp 00:00: [place]-10 [place] 00 DIAGNOSIS Medical CODE R32 Branch Diaper,Brie 2019- Yes [id number] Use as Univers f, 1-22 directed; ity of Adult,Dispo 00:00: [place]-10 [place] 00 DIAGNOSIS Medical (WINGS XXL CODE R32 Branc h ADULT BRIEF) [facility] [place] In[facility] 2018-05 Yes [id number] Use as Univers e Pad, -22 directed; ity of Liner, Disp 00:00: [place]-10 [place] 00 DIAGNOSIS Medical CODE R32 Branch Diaper,Brie 2019 Yes [id number] Use as Univers f, 1-22 directed; ity of Adult,Dispo 00:00: [place]-10 [place] 00 DIAGNOSIS Medical (WINGS XXL CODE R32 Branc h ADULT BRIEF) Mis Incontinenc 2018-05 Yes [id number] Use as Univers e Pad, -22 directed; ity of Liner, Disp 00:00: [place]-10 [place] 00 DIAGNOSIS Medical CODE R32 Branch Diaper,Brie 2018-05 Yes [id number] Use as Univers f, -22 directed; ity of Adult,Dispo 00:00: [place]-10 [place] 00 DIAGNOSIS Medical (WINGS XXL CODE R32 Branc h ADULT BRIEF) Mis Incontinenc 2018-05 Yes [id number] Use as Univers e Pad, - directed; ity of Liner, Disp 00:00: [place]-10 [place] 00 DIAGNOSIS Medical CODE R32 Branch Diaper,Brie 2018-05 Yes [id number] Use as Univers f, -22 directed; ity of Adult,Dispo 00:00: [place]-10 [place] 00 DIAGNOSIS Medical (WINGS XXL CODE R32 Branc h ADULT BRIEF) [facility] [place] 2018-05 Yes [id number] Use as Univers e Pad, -22 directed; ity of Liner, Disp 00:00: [place]-10 [place] 00 DIAGNOSIS Medical CODE R32 Branch Diaper,Brie 2018-05 Yes [id number] Use as Univers f, -22 directed; ity of Adult,Dispo 00:00: [place]-10 [place] 00 DIAGNOSIS Medical (WINGS XXL CODE R32 Branc h ADULT BRIEF) [facility] [place] 2018-05 Yes [id number] Use as Univers e Pad, -22 directed; ity of Liner, Disp 00:00: [place]-10 [place] 00 DIAGNOSIS Medical CODE R32 Branch Diaper,Brie 2019 Yes [id number] Use as Univers f, -22 directed; ity of Adult,Dispo 00:00: [place]-10 [place] 00 DIAGNOSIS Medical (WINGS XXL CODE R32 Branc h ADULT BRIEF) Mis Incontinenc 2018-05 Yes [id number] Use as Univers e Pad, 1-22 directed; ity of Liner, Disp 00:00: [place]-10 [place] 00 DIAGNOSIS Medical CODE R32 Branch Diaper,Brie 2019- Yes Use as Univers f, -22 directed; ity of Adult,Dispo 00:00: [place]-10 [place] 00 DIAGNOSIS Medical (WINGS XXL CODE R32 Branc h ADULT BRIEF) [facility] [place] 2019- Yes Use as Univers e Pad, -22 directed; ity of Liner, Disp 00:00: [place]-10 [place] 00 DIAGNOSIS Medical CODE R32 Branch Diaper,Brie 2019- Yes Use as Univers f, -22 directed; ity of Adult,Dispo 00:00: [place]-10 [place] 00 DIAGNOSIS Medical (WINGS XXL CODE R32 Branc h ADULT BRIEF) [facility] [place] 2019 Yes Use as Univers e Pad, -22 directed; ity of Liner, Disp 00:00: [place]-10 [place] 00 DIAGNOSIS Medical CODE R32 Branch Diaper,Brie 2019- Yes [id number] Use as Univers f, -22 directed; ity of Adult,Dispo 00:00: [place]-10 [place] 00 DIAGNOSIS Medical (WINGS XXL CODE R32 Branc h ADULT BRIEF) [facility] [place] 2019 Yes Use as Univers e Pad, -22 directed; ity of Liner, Disp 00:00: [place]-10 [place] 00 DIAGNOSIS Medical CODE R32 Branch Diaper,Brie 2019- Yes [id number] Use as Univers f, -22 directed; ity of Adult,Dispo 00:00: [place]-10 [place] 00 DIAGNOSIS Medical (WINGS XXL CODE R32 Branc h ADULT BRIEF) [facility] [place] 2019- Yes Use as Univers e Pad, -22 directed; ity of Liner, Disp 00:00: [place]-10 [place] 00 DIAGNOSIS Medical CODE R32 Branch Diaper,Brie 2019- Yes Use as Univers f, -22 directed; ity of Adult,Dispo 00:00: [place]-10 [place] 00 DIAGNOSIS Medical (WINGS XXL CODE R32 Branc h ADULT BRIEF) [facility] [place] 2018-05 Yes [id number] Use as Univers e Pad, 1-22 directed; ity of Liner, Disp 00:00: [place]-10 [place] 00 DIAGNOSIS Medical CODE R32 Branch Diaper,Brie 2019- Yes [id number] Use as Univers f, -22 directed; ity of Adult,Dispo 00:00: [place]-10 [place] 00 DIAGNOSIS Medical (WINGS XXL CODE R32 Branc h ADULT BRIEF) [facility] [place] In[facility] 2018-05 Yes [id number] Use as Univers e Pad, -22 directed; ity of Liner, Disp 00:00: [place]-10 [place] 00 DIAGNOSIS Medical CODE R32 Branch Diaper,Brie 2019 Yes [id number] Use as Univers f, - directed; ity of Adult,Dispo 00:00: [place]-10 [place] 00 DIAGNOSIS Medical (WINGS XXL CODE R32 Branc h ADULT BRIEF) [facility] [place] 2018-05 Yes Use as Univers e Pad, -22 directed; ity of Liner, Disp 00:00: [place]-10 [place] 00 DIAGNOSIS Medical CODE R32 Branch Diaper,Brie 2019 Yes [id number] Use as Univers f, -22 directed; ity of Adult,Dispo 00:00: [place]-10 [place] 00 DIAGNOSIS Medical (WINGS XXL CODE R32 Branc h ADULT BRIEF) [facility] [place] 2018-05 Yes [id number] Use as Univers e Pad, -22 directed; ity of Liner, Disp 00:00: [place]-10 [place] 00 DIAGNOSIS Medical CODE R32 Branch Diaper,Brie 2019- Yes [id number] Use as Univers f, -22 directed; ity of Adult,Dispo 00:00: [place]-10 [place] 00 DIAGNOSIS Medical (WINGS XXL CODE R32 Branc h ADULT BRIEF) [facility] [place] [facility] 2018-05 Yes Use as Univers e Pad, -22 directed; ity of Liner, Disp 00:00: [place]-10 [place] 00 DIAGNOSIS Medical CODE R32 Branch Diaper,Brie 2019-1 Yes [id number] Use as Univers f, 1-22 directed; ity of Adult,Dispo 00:00: [place] DIAGNOSIS Medical (WINGS XXL CODE R32 Branc h ADULT BRIEF) [facility] [place] [facility] 2018-05 Yes Use as Univers e Pad, -22 directed; ity of Liner, Disp 00:00: [place]-10 [place] 00 DIAGNOSIS Medical CODE R32 Branch Diaper,Brie 2019 Yes Use as Univers f, 1-22 directed; ity of Adult,Dispo 00:00: [place] 00 DIAGNOSIS Medical (WINGS XXL CODE R32 Branc h ADULT BRIEF) [facility] [place] [facility] 2018-05 Yes Use as Univers e Pad, -22 directed; ity of Liner, Disp 00:00: [place]-10 [place] 00 DIAGNOSIS Medical CODE R32 Branch Diaper,Brie 2019 Yes Use as Univers f, -22 directed; ity of Adult,Dispo 00:00: [place] DIAGNOSIS Medical (WINGS XXL CODE R32 Branc h ADULT BRIEF) [facility] [place] [facility] 2018-05 Yes Use as Univers e Pad, -22 directed; ity of Liner, Disp 00:00: [place]-10 [place] 00 DIAGNOSIS Medical CODE R32 Branch Diaper,Brie 2019- Yes Use as Univers f, 1-22 directed; ity of Adult,Dispo 00:00: [place] DIAGNOSIS Medical (WINGS XXL CODE R32 Branc h ADULT BRIEF) [facility] [place] [facility] 2018-05 Yes Use as Univers e Pad, 1-22 directed; ity of Liner, Disp 00:00: [place]-10 [place] DIAGNOSIS Medical CODE R32 Branch Diaper,Brie 2019- Yes Use as Univers f, 1-22 directed; ity of Adult,Dispo 00:00: [place] DIAGNOSIS Medical (WINGS XXL CODE R32 Branc h ADULT BRIEF) [facility] [place] [facility] 2018-05 Yes Use as Univers e Pad, 1-22 directed; ity of Liner, Disp 00:00: [place]-10 [place] 00 DIAGNOSIS Medical CODE R32 Branch Diaper,Brie 2019- Yes [id number] Use as Univers f, 1-22 directed; ity of Adult,Dispo 00:00: [place]-10 [place] 00 DIAGNOSIS Medical (WINGS XXL CODE R32 Branc h ADULT BRIEF) Misc Incontinenc 2019- Yes [id number] Use as Univers e Pad, 1-22 directed; ity of [place], Disp 00:00: [place]-10 [place] 00 DIAGNOSIS Medical CODE R32 Branch Diaper,Brie 2019 Yes [id number] Use as Univers f, 1-22 directed; ity of Adult,Dispo 00:00: [place] 00 DIAGNOSIS Medical (WINGS XXL CODE R32 Branc h ADULT BRIEF) Misc Incontinenc 2019 Yes [id number] Use as Univers e Pad, -22 directed; ity of [place], Disp 00:00: [place]-10 [place] 00 DIAGNOSIS Medical CODE R32 Branch Diaper,Brie 2019 Yes [id number] Use as Univers f, -22 directed; [facility]: [place] DI[place]IS Medical (WINGS XXL CODE R32 Branc h ADULT BRIEF) Misc Incontinenc 2019 Yes [id number] Use as Univers e Pad, -22 directed; ity of [place], Disp 00:00: [place]10 [place] DIAGNOSIS Medical CODE R32 Branch Diaper,Brie 2019 Yes [id number] Use as Univers f, 1-22 directed; [facility] Adult,Dispo 00:00: [place]10 [place] DIAGNOSIS Medical (WINGS XXL CODE R32 Branc h ADULT BRIEF) Misc Incontinenc 2019 Yes [id number] Use as Univers e Pad, 1-22 directed; ity of [place], Disp 00:00: [place]-10 [place] DIAGNOSIS Medical CODE R32 Branch Diaper,Brie 2019 Yes [id number] Use as Univers f, 1-22 directed; [facility] Adult,Dispo 00:00: [place]10 [place] DIAGNOSIS Medical (WINGS XXL CODE R32 Branc h ADULT BRIEF) Misc Incontinenc 2019-1 Yes [id number] Use as Univers e Pad, 1-22 directed; ity of [place], Disp 00:00: [place]-10 [place] DIAGNOSIS Medical CODE R32 Branch Diaper,Brie 2019 Yes [id number] Use as Univers f, -22 directed; [facility] Adult,Dispo 00:00: [place]10 [place] DIAGNOSIS Medical (WINGS XXL CODE R32 Bran h ADULT BRIEF) [facility] Incontinenc 2018-05 Yes [id number] Use as Univers e Pad, -22 directed; ity of [place], Disp 00:00: [place]10 [place] DIAGNOSIS Medical CODE R32 Branch Diaper,Brie 2019 Yes [id number] Use as Univers f, -22 directed; [facility]y of Adult,Dispo 00:00: [place]10 [place] DIAGNOSIS Medical (WINGS XXL CODE R32 Bran h ADULT BRIEF) [facility] [place] Incontinenc 2018-05 Yes Use as Univers e Pad, -22 directed; ity of [place], Disp 00:00: [place]10 [place] DIAGNOSIS Medical CODE R32 Branch Diaper,Brie 2019 Yes [id number] Use as Univers f, -22 directed; ity of Adult,Dispo 00:00: [place]10 [place] DIAGNOSIS Medical (WINGS XXL CODE R32 Bran h ADULT BRIEF) [facility] [place] Incontinenc 2018-05 Yes [id number] Use as Univers e Pad, -22 directed; ity of [place], Disp 00:00: [place]-10 [place] DIAGNOSIS Medical CODE R32 Branch Diaper,Brie 2019- Yes [id number] Use as Univers f, 1-22 directed; [facility]y [facility] Adult,Dispo 00:00: [place]10 [place] DIAGNOSIS Medical (WINGS XXL CODE R32 Bran h ADULT BRIEF) [facility] [place] Incontinenc 2018-05 Yes [id number] Use as Univers e Pad, 1-22 directed; ity of [place], Disp 00:00: [place] DIAGNOSIS Medical CODE R32 Branch Diaper,Brie 2019 Yes [id number] Use as Univers f, 1-22 directed; [facility] of Adult,Dispo 00:00: [place]10 [place] DIAGNOSIS Medical (WINGS XXL CODE R32 Branc h ADULT BRIEF) Misc Incontinenc 2019- Yes [id number] Use as Univers e Pad, 1-22 directed; ity of [place], Disp 00:00: [place] DIAGNOSIS Medical CODE R32 Branch Diaper,Brie 2019- Yes [id number] Use as Univers f, -22 directed; ity of Adult,Dispo 00:00: [place]10 [place] DIAGNOSIS Medical (WINGS XXL CODE R32 Branc h ADULT BRIEF) [facility] [place] Incontinenc 2018-05 Yes [id number] Use as Univers e Pad, -22 directed; ity of [place], Disp 00:00: [place]-10 [place] DIAGNOSIS Medical CODE R32 Branch Diaper,Brie 2019- Yes [id number] Use as Univers f, -22 directed; ity of Adult,Dispo 00:00: [place]10 [place] DIAGNOSIS Medical (WINGS XXL CODE R32 Branc h ADULT BRIEF) [facility] [place] Incontinenc 2018-05 Yes [id number] Use as Univers e Pad, -22 directed; ity of [place], Disp 00:00: [place]10 [place] DIAGNOSIS Medical CODE R32 Branch Diaper,Brie 2019- Yes [id number] Use as Univers f, -22 directed; ity of Adult,Dispo 00:00: [place]-10 [place] DIAGNOSIS Medical (WINGS XXL CODE R32 Branc h ADULT BRIEF) [facility] [place] Incontinenc 2019 Yes [id number] Use as Univers e Pad, -22 directed; ity of [place], Disp 00:00: [place]-10 [place] DIAGNOSIS Medical CODE R32 Branch Diaper,Brie 2019- Yes [id number] Use as Univers f, 1-22 directed; [facility]y of Adult,Dispo 00:00: [place]-10 [place] 00 DIAGNOSIS Medical (WINGS XXL CODE R32 Branc h ADULT BRIEF) [facility] Incontinenc 2019 Yes [id number] Use as Univers e Pad, 1-22 directed; ity of [place], Disp 00:00: [place]-10 [place] DIAGNOSIS Medical CODE R32 Branch Diaper,Brie 2019 Yes [id number] Use as Univers f, 1-22 directed; [facility]y of Adult,Dispo 00:00: [place]-10 [place] DIAGNOSIS Medical (WINGS XXL CODE R32 Branc h ADULT BRIEF) [facility] [place] Incontinenc 2018-05 Yes Use as Univers e Pad, -22 directed; ity of [place]iner, Disp 00:00: [place]-10 [place] 00 DIAGNOSIS Medical CODE R32 Branch Diaper,Brie 2019 Yes [id number] Use as Univers f, -22 directed; ity of Adult,Dispo 00:00: [place]-10 [place] DIAGNOSIS Medical (WINGS XXL CODE R32 Branc h ADULT BRIEF) Mis Incontinenc 2018-05 Yes Use as Univers e Pad, - directed; ity of [place], Disp 00:00: [place]10 [place] DIAGNOSIS Medical CODE R32 Branch Diaper,Brie 2018-05 Yes [id number] Use as Univers f, - directed; ity of Adult,Dispo 00:00: [place]-10 [place] 00 DIAGNOSIS Medical (WINGS XXL CODE R32 Branc h ADULT BRIEF) [facility] [place] Incontinenc 2018-05 Yes [id number] Use as Univers e Pad, - directed; ity of [place]iner, Disp 00:00: [place]-10 [place] 00 DIAGNOSIS Medical CODE R32 Branch Diaper,Brie 2018-05 Yes [id number] Use as Univers f, - directed; ity of Adult,Dispo 00:00: [place]-10 [place] 00 DIAGNOSIS Medical (WINGS XXL CODE R32 Branc h ADULT BRIEF) [facility] [place] Incontinenc 2018-05 Yes [id number] Use as Univers e Pad, -22 directed; ity of [place], Disp 00:00: [place]-10 [place] 00 DIAGNOSIS Medical CODE R32 Branch Diaper,Brie 2019 Yes [id number] Use as Univers f, -22 directed; ity of Adult,Dispo 00:00: [place]-10 [place] DIAGNOSIS Medical (WINGS XXL CODE R32 Branc h ADULT BRIEF) [facility] [place] Incontinenc 2018-05 Yes [id number] Use as Univers e Pad, 1-22 directed; ity of [place], Disp 00:00: [place]-10 [place] 00 DIAGNOSIS Medical CODE R32 Branch Diaper,Brie 2018- Yes [id number] Use as Univers f, 1-22 directed; ity of Adult,Dispo 00:00: [place]-10 [place] 00 DIAGNOSIS Medical (WINGS XXL CODE R32 Branc h ADULT BRIEF) [facility] Incontinenc 2018-05 Yes [id number] Use as Univers e Pad, 1-22 directed; ity of [place], Disp 00:00: [place]-10 [place] 00 DIAGNOSIS Medical CODE R32 Branch Diaper,Brie 2018-05 Yes [id number] Use as Univers f, 1-22 directed; ity of Adult,Dispo 00:00: [place]-10 [place] 00 DIAGNOSIS Medical (WINGS XXL CODE R32 Branc h ADULT BRIEF) [facility] Incontinenc 2018-05 Yes [id number] Use as Univers e Pad, 1-22 directed; ity of [place], Disp 00:00: [place]-10 [place] 00 DIAGNOSIS Medical CODE R32 Branch Diaper,Brie 2018-05 Yes [id number] Use as Univers f, 1-22 directed; ity of Adult,Dispo 00:00: [place]-10 [place] 00 DIAGNOSIS Medical (WINGS XXL CODE R32 Branc h ADULT BRIEF) [facility] [place] Immunizations Ordered Filled Date Status Comments Source Immunization Name Immunization Name Pneumococcal 2022-09-08 Completed Universit y of Conjugate, PCV20 00:00:00 [facility] dical (Prevnar 20) Branch Pneumococcal 20 2022-09-08 Completed Universit y of Conjugate, PCV20 00:00:00 [facility] dical (Prevnar 20) Branch Pneumococcal 20 2022-09-08 Completed Universit y of Conjugate, PCV20 00:00:00 [facility] dical (Prevnar 20) Branch Pneumococcal 20 2022-09-08 Completed Universit y of Conjugate, PCV20 00:00:00 [facility] dical (Prevnar 20) Branch Pneumococcal 20 2022-09-08 Completed Universit y of Conjugate, PCV20 00:00:00 [facility] dical (Prevnar 20) Branch Pneumococcal 20 2022-09-08 [...] Completed Universit y of Conjugate, PCV20 00:00:00 [place] [facility] dical (Prevnar 20) Branch Pneumococcal 20 [...] Universit y of Conjugate, PCV20 00:00:00 [place] [facility] d[facility] (Prevnar 20) Branch Pneumococcal 20 2022-09-08 [...] [place] [facility],preserve Free [facility] 65+ (FLUAD) SARS-COV-2 COVID-19 2022-01-26 Completed Unive rsity of CLARISSA-SUCROSE 00:00:00 [place] [facility] VACCINE 12 YRS+, Branch BIVALENT 0.3ML, IM, (PFIZER MEZA TOP) Influenza Virus 2022-01-26 Completed Universit y of Vaccine,quad 00:00:00 [place] [facility] Im,preserve Free Branch 65+ (FLUAD) SARS-COV-2 COVID-19 2022-01-26 Completed Unive rsity of CLARISSA-SUCROSE 00:00:00 [place] [facility] VACCINE 12 YRS+, Branch BIVALENT 0.3ML, IM, (PFIZER MEZA TOP) Influenza Virus 2022-01-26 Completed Universit y of Vaccine,quad 00:00:00 [place] [facility] Im,preserve Free Branch 65+ (FLUAD) SARS-COV-2 COVID-19 2022-01-26 Completed Unive rsity of CLARISSA-SUCROSE 00:00:00 [place] [facility] VACCINE 12 YRS+, Branch BIVALENT 0.3ML, IM, (PFIZER MEZA TOP) Influenza Virus 2022-01-26 Completed Universit y of Vaccine,quad 00:00:00 [place] [facility] Im,preserve Free Branch 65+ (FLUAD) SARS-COV-2 COVID-19 2022-01-26 Completed Unive rsity of CLARISSA-SUCROSE 00:00:00 [place] [facility] VACCINE 12 YRS+, Branch BIVALENT 0.3ML, IM, (PFIZER MEZA TOP) Influenza Virus 2022-01-26 Completed Universit y of Vaccine,quad 00:00:00 [place] [facility] Im,preserve Free Branch 65+ (FLUAD) SARS-COV-2 COVID-19 2022-01-26 Completed Unive rsity of CLARISSA-SUCROSE 00:00:00 [place] [facility] VACCINE 12 YRS+, Branch BIVALENT 0.3ML, IM, (PFIZER MEZA TOP) Influenza Virus 2022-01-26 Completed Universit y of Vaccine,quad 00:00:00 [place] [facility] Im,preserve Free Branch 65+ (FLUAD) SARS-COV-2 COVID-19 2022-01-26 Completed Unive rsity of CLARISSA-SUCROSE 00:00:00 [place] [facility] VACCINE 12 YRS+, Branch BIVALENT 0.3ML, IM, (PFIZER MEZA TOP) Influenza Virus 2022-01-26 Completed Universit y of Vaccine,quad 00:00:00 [place] [facility] Im,preserve Free Branch 65+ (FLUAD) SARS-COV-2 COVID-19 2022-01-26 Completed Unive rsity of CLARISSA-SUCROSE 00:00:00 [place] [facility] VACCINE 12 YRS+, Branch BIVALENT 0.3ML, IM, (PFIZER MEZA TOP) Influenza Virus 2021-04-08 Completed Universit y of Vaccine,quad 00:00:00 [place] [facility] Im,preserve Free Branch 65+ SARS-COV-2 COVID-19 2021-04-08 Completed Unive rsity of PFIZER VACCINE 00:00:00 [facility] Branch Influenza Virus 2021-04-08 Completed Universit y of Vaccine,quad 00:00:00 [place] [facility] Im,preserve Free Branch 65+ SARS-COV-2 COVID-19 2021-04-08 Completed Unive rsity of PFIZER VACCINE 00:00:00 [facility] Branch Influenza Virus 2021-04-08 Completed Universit y of Vaccine,quad 00:00:00 [place] [facility] Im,preserve Free Branch 65+ SARS-COV-2 COVID-19 2021-04-08 Completed Unive rsity of PFIZER VACCINE 00:00:00 [facility] Influenza Virus 2021-04-08 Completed Universit y of Vaccine,quad 00:00:00 [place] [facility] Im,preserve Free Branch 65+ SARS-COV-2 COVID-19 2021-04-08 Completed Unive rsity of PFIZER VACCINE 00:00:00 [facility] Branch Influenza Virus 2021-04-08 Completed Universit y of Vaccine,quad 00:00:00 [place] [facility] Im,preserve Free Branch 65+ SARS-COV-2 COVID-19 2021-04-08 Completed Unive rsity of PFIZER VACCINE 00:00:00 [facility] Influenza Virus 2021-04-08 Completed Universit y of Vaccine,quad 00:00:00 [place] [facility] Im,preserve Free Branch 65+ SARS-COV-2 COVID-19 2021-04-08 Completed Unive rsity of PFIZER VACCINE 00:00:00 [facility] Influenza Virus 2021-04-08 Completed Universit y of Vaccine,quad 00:00:00 [place] [facility] Im,preserve Free Branch 65+ SARS-COV-2 COVID-19 2021-04-08 Completed Unive rsity of PFIZER VACCINE 00:00:00 [place] [facility] Branch Influenza Virus 2021-04-08 Completed Universit y of Vaccine,quad 00:00:00 [place] [facility] Im,preserve Free Branch 65+ SARS-COV-2 COVID-19 2021-04-08 Completed Unive rsity of PFIZER VACCINE 00:00:00 [place] [facility] Branch Influenza Virus 2021-04-08 Completed Universit y of Vaccine,quad 00:00:00 [place] [facility] Im,preserve Free Branch 65+ SARS-COV-2 COVID-19 2021-04-08 Completed Unive rsity of PFIZER VACCINE 00:00:00 [place] [facility] Branch Influenza Virus 2021-04-08 Completed Universit y of Vaccine,quad 00:00:00 [place] [facility] Im,preserve Free Branch 65+ SARS-COV-2 COVID-19 2021-04-08 Completed Unive rsity of PFIZER VACCINE 00:00:00 [facility] Branch Influenza Virus 2021-04-08 Completed Universit y of Vaccine,quad 00:00:00 [place] [facility] Im,preserve Free Branch 65+ SARS-COV-2 COVID-19 2021-04-08 Completed Unive rsity of PFIZER VACCINE 00:00:00 [facility] Branch Influenza Virus 2021-04-08 Completed Universit y of Vaccine,quad 00:00:00 [place] [facility] Im,preserve Free Branch 65+ SARS-COV-2 COVID-19 2021-04-08 Completed Unive rsity of PFIZER VACCINE 00:00:00 [facility] Branch Influenza Virus 2021-04-08 Completed Universit y of Vaccine,quad 00:00:00 [place] [facility] Im,preserve Free Branch 65+ SARS-COV-2 COVID-19 2021-04-08 Completed Unive rsity of PFIZER VACCINE 00:00:00 [place] [facility] Branch Influenza Virus 2021-04-08 Completed Universit y of Vaccine,quad 00:00:00 [place] [facility] Im,preserve Free Branch 65+ SARS-COV-2 COVID-19 2021-04-08 Completed Unive rsity of PFIZER VACCINE 00:00:00 [place] [facility] Branch Influenza Virus 2021-04-08 Completed Universit y of Vaccine,quad 00:00:00 [place] [facility] Im,preserve Free Branch 65+ SARS-COV-2 COVID-19 2021-04-08 Completed Unive rsity of PFIZER VACCINE 00:00:00 [facility] Influenza Virus 2021-04-08 Completed Universit y of Vaccine,quad 00:00:00 [place] [facility] Im,preserve Free Branch 65+ SARS-COV-2 COVID-19 2021-04-08 Completed Unive rsity of PFIZER VACCINE 00:00:00 [facility] Influenza Virus 2021-04-08 Completed Universit y of Vaccine,quad 00:00:00 [place] [facility] Im,preserve Free Branch 65+ SARS-COV-2 COVID-19 2021-04-08 Completed Unive rsity of PFIZER VACCINE 00:00:00 [facility] Influenza Virus 2021-04-08 Completed Universit y of Vaccine,quad 00:00:00 [place] [facility] Im,preserve Free Branch 65+ SARS-COV-2 COVID-19 2021-04-08 Completed Unive rsity of PFIZER VACCINE 00:00:00 [facility] Influenza Virus 2021-04-08 Completed Universit y of Vaccine,quad 00:00:00 [place] [facility] Im,preserve Free Branch 65+ SARS-COV-2 COVID-19 2021-04-08 Completed Unive rsity of PFIZER VACCINE 00:00:00 [facility] Influenza Virus 2021-04-08 Completed Universit y of Vaccine,quad 00:00:00 [place] [facility] Im,preserve Free Branch 65+ SARS-COV-2 COVID-19 2021-04-08 Completed Unive rsity of PFIZER VACCINE 00:00:00 [facility] Influenza Virus 2021-04-08 Completed Universit y of Vaccine,quad 00:00:00 [place] [facility] Im,preserve Free Branch 65+ SARS-COV-2 COVID-19 2021-04-08 Completed Unive rsity of PFIZER VACCINE 00:00:00 [facility] Influenza Virus 2021-04-08 Completed Universit y of Vaccine,quad 00:00:00 [place] [facility] Im,preserve Free Branch 65+ SARS-COV-2 COVID-19 2021-04-08 Completed Unive rsity of PFIZER VACCINE 00:00:00 [facility] Branch Influenza Virus 2021-04-08 Completed Universit y of Vaccine,quad 00:00:00 [place] [facility] Im,preserve Free Branch 65+ SARS-COV-2 COVID-19 2021-04-08 Completed Unive rsity of PFIZER VACCINE 00:00:00 [facility] Branch Influenza Virus 2021-04-08 Completed Universit y of Vaccine,quad 00:00:00 [place] [facility] Im,preserve Free Branch 65+ SARS-COV-2 COVID-19 2021-04-08 Completed Unive rsity of PFIZER VACCINE 00:00:00 [facility] Branch Influenza Virus 2021-04-08 Completed Universit y of Vaccine,quad 00:00:00 [place] [facility] Im,preserve Free Branch 65+ SARS-COV-2 COVID-19 2021-04-08 Completed Unive rsity of PFIZER VACCINE 00:00:00 [facility] Branch Influenza Virus 2021-04-08 Completed Universit y of Vaccine,quad 00:00:00 [place] [facility] Im,preserve Free Branch 65+ SARS-COV-2 COVID-19 2021-04-08 Completed Unive rsity of PFIZER VACCINE 00:00:00 [facility] Branch Influenza Virus 2021-04-08 Completed Universit y of Vaccine,quad 00:00:00 [place] [facility] Im,preserve Free Branch 65+ SARS-COV-2 COVID-19 2021-04-08 Completed Unive rsity of PFIZER VACCINE 00:00:00 [facility] Branch Influenza Virus 2021-04-08 Completed Universit y of Vaccine,quad 00:00:00 [place] [facility] Im,preserve Free Branch 65+ SARS-COV-2 COVID-19 2021-04-08 Completed Unive rsity of PFIZER VACCINE 00:00:00 [facility] Branch Influenza Virus 2021-04-08 Completed Universit y of Vaccine,quad 00:00:00 [place] [facility] Im,preserve Free Branch 65+ SARS-COV-2 COVID-19 2021-04-08 Completed Unive rsity of PFIZER VACCINE 00:00:00 [facility] Branch Influenza Virus 2021-04-08 Completed Universit y of Vaccine,quad 00:00:00 [place] [facility] Im,preserve Free Branch 65+ SARS-COV-2 COVID-19 2021-04-08 Completed Unive rsity of PFIZER VACCINE 00:00:00 [facility] Influenza Virus 2021-04-08 Completed Universit y of Vaccine,quad 00:00:00 [place] [facility] Im,preserve Free Branch 65+ SARS-COV-2 COVID-19 2021-04-08 Completed Unive rsity of PFIZER VACCINE 00:00:00 [facility] Influenza Virus 2021-04-08 Completed Universit y of Vaccine,quad 00:00:00 [place] [facility] Im,preserve Free Branch 65+ SARS-COV-2 COVID-19 2021-04-08 Completed Unive rsity of PFIZER VACCINE 00:00:00 [facility] Influenza Virus 2021-04-08 Completed Universit y of Vaccine,quad 00:00:00 [place] [facility] Im,preserve Free Branch 65+ SARS-COV-2 COVID-19 2021-04-08 Completed Unive rsity of PFIZER VACCINE 00:00:00 [facility] Influenza Virus 2021-04-08 Completed Universit y of Vaccine,quad 00:00:00 [place] [facility] Im,preserve Free Branch 65+ SARS-COV-2 COVID-19 2021-04-08 Completed Unive rsity of PFIZER VACCINE 00:00:00 [facility] Influenza Virus 2021-04-08 Completed Universit y of Vaccine,quad 00:00:00 [place] [facility] Im,preserve Free Branch 65+ SARS-COV-2 COVID-19 2021-04-08 Completed Unive rsity of PFIZER VACCINE 00:00:00 [facility] Influenza Virus 2021-04-08 Completed Universit y of Vaccine,quad 00:00:00 [place] [facility] Im,preserve Free Branch 65+ SARS-COV-2 COVID-19 2021-04-08 Completed Unive rsity of PFIZER VACCINE 00:00:00 [facility] Influenza Virus 2021-04-08 Completed Universit y of Vaccine,quad 00:00:00 [place] [facility] Im,preserve Free Branch 65+ SARS-COV-2 COVID-19 2021-04-08 Completed Unive rsity of PFIZER VACCINE 00:00:00 [facility] Influenza Virus 2021-04-08 Completed Universit y of Vaccine,quad 00:00:00 [place] [facility] Im,preserve Free Branch 65+ SARS-COV-2 COVID-19 2021-04-08 Completed Unive rsity of PFIZER VACCINE 00:00:00 [facility] Influenza Virus 2021-04-08 Completed Universit y of Vaccine,quad 00:00:00 [place] [facility] Im,preserve Free Branch 65+ SARS-COV-2 COVID-19 2021-04-08 Completed Unive rsity of PFIZER VACCINE 00:00:00 [facility] Influenza Virus 2021-04-08 Completed Universit y of Vaccine,quad 00:00:00 [place] [facility] Im,preserve Free Branch 65+ SARS-COV-2 COVID-19 2021-04-08 Completed Unive rsity of PFIZER VACCINE 00:00:00 [facility] Influenza Virus 2021-04-08 Completed Universit y of Vaccine,quad 00:00:00 [place] [facility] Im,preserve Free Branch 65+ SARS-COV-2 COVID-19 2021-04-08 Completed Unive rsity of PFIZER VACCINE 00:00:00 [facility] Influenza Virus 2021-04-08 Completed Universit y of Vaccine,quad 00:00:00 [place] [facility] Im,preserve Free Branch 65+ SARS-COV-2 COVID-19 2021-04-08 Completed Unive rsity of PFIZER VACCINE 00:00:00 [facility] Influenza Virus 2021-04-08 Completed Universit y of Vaccine,quad 00:00:00 [place] [facility] Im,preserve Free Branch 65+ SARS-COV-2 COVID-19 2021-04-08 Completed Unive rsity of PFIZER VACCINE 00:00:00 [facility] Influenza Virus 2021-04-08 Completed Universit y of Vaccine,quad 00:00:00 [place] [facility] Im,preserve Free Branch 65+ SARS-COV-2 COVID-19 2021-04-08 Completed Unive rsity of PFIZER VACCINE 00:00:00 [facility] Influenza Virus 2021-04-08 Completed Universit y of Vaccine,quad 00:00:00 [place] [facility] Im,preserve Free Branch 65+ SARS-COV-2 COVID-19 2021-04-08 Completed Unive rsity of PFIZER VACCINE 00:00:00 [facility] Influenza Virus 2021-04-08 Completed Universit y of Vaccine,quad 00:00:00 [place] [facility] Im,preserve Free Branch 65+ SARS-COV-2 COVID-19 2021-04-08 Completed Unive rsity of PFIZER VACCINE 00:00:00 [place] [facility] Branch Influenza Virus 2021-04-08 Completed Universit y of Vaccine,quad 00:00:00 [place] [facility] Im,preserve Free Branch 65+ SARS-COV-2 COVID-19 2021-04-08 Completed Unive rsity of PFIZER VACCINE 00:00:00 [place] [facility] Branch Influenza Virus 2021-04-08 Completed Universit y of Vaccine,quad 00:00:00 [place] [facility] Im,preserve Free Branch 65+ SARS-COV-2 COVID-19 2021-04-08 Completed Unive rsity of PFIZER VACCINE 00:00:00 [place] [facility] Branch Influenza Virus 2021-04-08 Completed Universit y of Vaccine,quad 00:00:00 [place] [facility] Im,preserve Free Branch 65+ SARS-COV-2 COVID-19 2021-04-08 Completed Unive rsity of PFIZER VACCINE 00:00:00 [facility] Branch Influenza Virus 2021-04-08 Completed Universit y of Vaccine,quad 00:00:00 [place] [facility] Im,preserve Free Branch 65+ SARS-COV-2 COVID-19 2021-04-08 Completed Unive rsity of PFIZER VACCINE 00:00:00 [facility] Branch Influenza Virus 2021-04-08 Completed Universit y of Vaccine,quad 00:00:00 [place] [facility] Im,preserve Free Branch 65+ SARS-COV-2 COVID-19 2021-04-08 Completed Unive rsity of PFIZER VACCINE 00:00:00 [facility] Branch Influenza Virus 2021-04-08 Completed Universit y of Vaccine,quad 00:00:00 [place] [facility] Im,preserve Free Branch 65+ SARS-COV-2 COVID-19 2021-04-08 Completed Unive rsity of PFIZER VACCINE 00:00:00 [place] [facility] Branch Influenza Virus 2021-04-08 Completed Universit y of Vaccine,quad 00:00:00 [place] [facility] Im,preserve Free Branch 65+ SARS-COV-2 COVID-19 2021-04-08 Completed Unive rsity of PFIZER VACCINE 00:00:00 [place] [facility] Branch Influenza Virus 2021-04-08 Completed Universit y of Vaccine,quad 00:00:00 [place] [facility] Im,preserve Free Branch 65+ SARS-COV-2 COVID-19 2021-04-08 Completed Unive rsity of PFIZER VACCINE 00:00:00 [facility] Branch Influenza Virus 2021-04-08 Completed Universit y of Vaccine,quad 00:00:00 [place] [facility] Im,preserve Free Branch 65+ SARS-COV-2 COVID-19 2021-04-08 Completed Unive rsity of PFIZER VACCINE 00:00:00 [facility] Branch Influenza Virus 2021-04-08 Completed Universit y of Vaccine,quad 00:00:00 [place] [facility] Im,preserve Free Branch 65+ SARS-COV-2 COVID-19 2021-04-08 Completed Unive rsity of PFIZER VACCINE 00:00:00 [facility] Branch Influenza Virus 2021-04-08 Completed Universit y of Vaccine,quad 00:00:00 [place] [facility] Im,preserve Free Branch 65+ SARS-COV-2 COVID-19 2021-04-08 Completed Unive rsity of PFIZER VACCINE 00:00:00 [facility] Branch Influenza Virus 2021-04-08 Completed Universit y of Vaccine,quad 00:00:00 [place] [facility] Im,preserve Free Branch 65+ SARS-COV-2 COVID-19 2021-04-08 Completed Unive rsity of PFIZER VACCINE 00:00:00 [facility] Influenza Virus 2021-04-08 Completed Universit y of Vaccine,quad 00:00:00 [place] [facility] Im,preserve Free Branch 65+ SARS-COV-2 COVID-19 2021-04-08 Completed Unive rsity of PFIZER VACCINE 00:00:00 [facility] Branch Influenza Virus 2021-04-08 Completed Universit y of Vaccine,quad 00:00:00 [place] [facility] Im,preserve Free Branch 65+ SARS-COV-2 COVID-19 2021-04-08 Completed Unive rsity of PFIZER VACCINE 00:00:00 [place] [facility] Influenza Virus 2021-04-08 Completed [facility]+ SARS-COV-2 COVID-19 2021-04-08 Completed [facility] PFIZER VACCINE 00:00:00 [facility] Influenza Virus 2021-04-08 Completed [facility] Vaccine[facility]quad 00:00:00 [facility] 65+ SARS-COV-2 COVID-19 2021-04-08 Completed [facility] PFIZER VACCINE 00:00:00 [facility] Influenza Virus 2021-04-08 Completed [facility] Vaccine,quad 00:00:00 [facility] 65+ SARS-COV-2 COVID-19 2021-04-08 Completed [facility] PFIZER VACCINE 00:00:00 [facility] Influenza Virus 2021-04-08 Completed [facility] Vaccine,quad 00:00:00 [facility] 65+ SARS-COV-2 COVID-19 2021-04-08 Completed [facility] PFIZER VACCINE 00:00:00 [facility] Influenza Virus 2021-04-08 Completed [facility] Vaccine,quad 00:00:00 [facility] 65+ SARS-COV-2 COVID-19 2021-04-08 Completed [facility] PFIZER VACCINE 00:00:00 [facility] Influenza Virus 2021-04-08 Completed [facility] Vaccine,quad 00:00:00 [facility] 65+ SARS-COV-2 COVID-19 2021-04-08 Completed [facility] PFIZER VACCINE 00:00:00 [facility] Influenza Virus 2021-04-08 Completed [facility] Vaccine,quad 00:00:00 [facility] 65+ SARS-COV-2 COVID-19 2021-04-08 Completed [facility] PFIZER VACCINE 00:00:00 [facility] Influenza Virus 2021-04-08 Completed [facility] Vaccine,quad 00:00:00 [facility] 65+ SARS-COV-2 COVID-19 2021-04-08 Completed [facility] PFIZER VACCINE 00:00:00 [facility] Influenza Virus 2021-04-08 Completed [facility] Vaccine,quad 00:00:00 [facility] 65+ SARS-COV-2 COVID-19 2021-04-08 Completed [facility] PFIZER VACCINE 00:00:00 [facility] Influenza Virus 2021-04-08 Completed [facility] Vaccine,quad 00:00:00 [facility] 65+ SARS-COV-2 COVID-19 2021-04-08 Completed [facility] PFIZER VACCINE 00:00:00 [facility] Influenza Virus 2021-04-08 Completed [facility] Vaccine,quad 00:00:00 [facility] 65+ SARS-COV-2 COVID-19 2021-04-08 Completed [facility] PFIZER VACCINE 00:00:00 [facility] Influenza Virus 2021-04-08 Completed [facility] Vaccine,quad 00:00:00 [facility] 65+ SARS-COV-2 COVID-19 2021-04-08 Completed [facility] PFIZER VACCINE 00:00:00 [facility] Influenza Virus 2021-04-08 Completed [facility] Vaccine,quad 00:00:00 [facility] 65+ SARS-COV-2 COVID-19 2021-04-08 Completed [facility] PFIZER VACCINE 00:00:00 [facility] Influenza Virus 2021-04-08 Completed [facility] Vaccine,quad 00:00:00 [facility] 65+ SARS-COV-2 COVID-19 2021-04-08 Completed [facility] PFIZER VACCINE 00:00:00 [facility] Influenza Virus 2021-04-08 Completed [facility] Vaccine,quad 00:00:00 [facility] 65+ SARS-COV-2 COVID-19 2021-04-08 Completed [facility] PFIZER VACCINE 00:00:00 [facility] Influenza Virus 2021-04-08 Completed [facility] Vaccine,quad 00:00:00 [facility] 65+ SARS-COV-2 COVID-19 2021-04-08 Completed [facility] PFIZER VACCINE 00:00:00 [facility] Influenza Virus 2021-04-08 Completed [facility] Vaccine,quad 00:00:00 [facility] 65+ SARS-COV-2 COVID-19 2021-04-08 Completed [facility] PFIZER VACCINE 00:00:00 [facility] Influenza Virus 2021-04-08 Completed [facility] Vaccine,quad 00:00:00 [facility] 65+ SARS-COV-2 COVID-19 2021-04-08 Completed [facility] PFIZER VACCINE 00:00:00 [facility] Influenza Virus 2021-04-08 Completed [facility] Vaccine,quad 00:00:00 [facility] 65+ SARS-COV-2 COVID-19 2021-04-08 Completed [facility] PFIZER VACCINE 00:00:00 [facility] Influenza Virus 2021-04-08 Completed [facility] Vaccine,quad 00:00:00 [facility] 65+ SARS-COV-2 COVID-19 2021-04-08 Completed [facility] PFIZER VACCINE 00:00:00 [facility] Influenza Virus 2021-04-08 Completed [facility] Vaccine,quad 00:00:00 [facility] 65+ SARS-COV-2 COVID-19 2021-04-08 Completed [facility] PFIZER VACCINE 00:00:00 [facility] Influenza Virus 2021-04-08 Completed [facility] Vaccine,quad 00:00:00 [facility] 65+ SARS-COV-2 COVID-19 2021-04-08 Completed [facility] PFIZER VACCINE 00:00:00 [facility] Influenza Virus 2021-04-08 Completed [facility] Vaccine,quad 00:00:00 [facility] 65+ SARS-COV-2 COVID-19 2021-04-08 Completed [facility] PFIZER VACCINE 00:00:00 [facility] Influenza Virus 2021-04-08 Completed [facility] Vaccine,quad 00:00:00 [facility] 65+ (FLUAD) SARS-COV-2 COVID-19 2021-04-08 Completed [facility] PFIZER VACCINE 00:00:00 [facility] Influenza Virus 2021-04-08 Completed [facility] Vaccine,quad 00:00:00 [facility] 65+ (FLUAD) SARS-COV-2 COVID-19 2021-04-08 Completed [facility] PFIZER VACCINE 00:00:00 [facility] Influenza Virus 2021-04-08 Completed [facility] Vaccine,quad 00:00:00 [facility] 65+ (FLUAD) SARS-COV-2 COVID-19 2021-04-08 Completed [facility] PFIZER VACCINE 00:00:00 [facility] Influenza Virus 2021-04-08 Completed [facility] Vaccine,quad 00:00:00 [facility] 65+ (FLUAD) SARS-COV-2 COVID-19 2021-04-08 Completed [facility] PFIZER VACCINE 00:00:00 [facility] Influenza Virus 2021-04-08 Completed [facility] Vaccine,quad 00:00:00 [facility] 65+ (FLUAD) SARS-COV-2 COVID-19 2021-04-08 Completed [facility] PFIZER VACCINE 00:00:00 [facility] Influenza Virus 2021-04-08 Completed [facility] Vaccine,quad 00:00:00 [facility] 65+ (FLUAD) SARS-COV-2 COVID-19 2021-04-08 Completed [facility] PFIZER VACCINE 00:00:00 [facility] Influenza Virus 2021-04-08 Completed [facility] Vaccine,quad 00:00:00 [facility] 65+ (FLUAD) SARS-COV-2 COVID-19 2021-04-08 Completed [facility] PFIZER VACCINE 00:00:00 [facility] SARS-COV-2 COVID-19 2020-08-01 Completed [facility] PFIZER VACCINE 00:00:00 [facility] SARS-COV-2 COVID-19 2020-08-01 Completed [facility] PFIZER VACCINE 00:00:00 [facility] SARS-COV-2 COVID-19 2020-08-01 Completed [facility] PFIZER VACCINE 00:00:00 [facility] SARS-COV-2 COVID-19 2020-08-01 Completed [facility] PFIZER VACCINE 00:00:00 [facility] SARS-COV-2 COVID-19 2020-08-01 Completed [facility] PFIZER VACCINE 00:00:00 [facility] SARS-COV-2 COVID-19 2020-08-01 Completed [facility] PFIZER VACCINE 00:00:00 [facility] SARS-COV-2 COVID-19 2020-08-01 Completed [facility] PFIZER VACCINE 00:00:00 [facility] SARS-COV-2 COVID-19 2020-08-01 Completed [facility] PFIZER VACCINE 00:00:00 [facility] SARS-COV-2 COVID-19 2020-08-01 Completed [facility] PFIZER VACCINE 00:00:00 [facility] SARS-COV-2 COVID-19 2020-08-01 Completed [facility] PFIZER VACCINE 00:00:00 [facility] SARS-COV-2 COVID-19 2020-08-01 Completed [facility] PFIZER VACCINE 00:00:00 [facility] SARS-COV-2 COVID-19 2020-08-01 Completed [facility] PFIZER VACCINE 00:00:00 [facility] SARS-COV-2 COVID-19 2020-08-01 Completed [facility] PFIZER VACCINE 00:00:00 [facility] SARS-COV-2 COVID-19 2020-08-01 Completed [facility] PFIZER VACCINE 00:00:00 [facility] SARS-COV-2 COVID-19 2020-08-01 Completed [facility] PFIZER VACCINE 00:00:00 [facility] SARS-COV-2 COVID-19 2020-08-01 Completed [facility] PFIZER VACCINE 00:00:00 [facility] SARS-COV-2 COVID-19 2020-08-01 Completed [facility] PFIZER VACCINE 00:00:00 [facility] SARS-COV-2 COVID-19 2020-08-01 Completed [facility] PFIZER VACCINE 00:00:00 [facility] SARS-COV-2 COVID-19 2020-08-01 Completed [facility] PFIZER VACCINE 00:00:00 [facility] SARS-COV-2 COVID-19 2020-08-01 Completed [facility] PFIZER VACCINE 00:00:00 [facility] SARS-COV-2 COVID-19 2020-08-01 Completed [facility] PFIZER VACCINE 00:00:00 [facility] SARS-COV-2 COVID-19 2020-08-01 Completed [facility] PFIZER VACCINE 00:00:00 [facility] SARS-COV-2 COVID-19 2020-08-01 Completed [facility] PFIZER VACCINE 00:00:00 [facility] SARS-COV-2 COVID-19 2020-08-01 Completed [facility] PFIZER VACCINE 00:00:00 [facility] SARS-COV-2 COVID-19 2020-08-01 Completed [facility] PFIZER VACCINE 00:00:00 [facility] SARS-COV-2 COVID-19 2020-08-01 Completed [facility] PFIZER VACCINE 00:00:00 [facility] SARS-COV-2 COVID-19 2020-08-01 Completed [facility] PFIZER VACCINE 00:00:00 [facility] SARS-COV-2 COVID-19 2020-08-01 Completed [facility] PFIZER VACCINE 00:00:00 [facility] SARS-COV-2 COVID-19 2020-08-01 Completed [facility] PFIZER VACCINE 00:00:00 [facility] SARS-COV-2 COVID-19 2020-08-01 Completed [facility] PFIZER VACCINE 00:00:00 [facility] SARS-COV-2 COVID-19 2020-08-01 Completed [facility] PFIZER VACCINE 00:00:00 [facility] SARS-COV-2 COVID-19 2020-08-01 Completed [facility] PFIZER VACCINE 00:00:00 [facility] SARS-COV-2 COVID-19 2020-08-01 Completed [facility] PFIZER VACCINE 00:00:00 [facility] SARS-COV-2 COVID-19 2020-08-01 Completed [facility] PFIZER VACCINE 00:00:00 [facility] SARS-COV-2 COVID-19 2020-08-01 Completed [facility] PFIZER VACCINE 00:00:00 [facility] SARS-COV-2 COVID-19 2020-08-01 Completed [facility] PFIZER VACCINE 00:00:00 [facility] SARS-COV-2 COVID-19 2020-08-01 Completed [facility] PFIZER VACCINE 00:00:00 [facility] SARS-COV-2 COVID-19 2020-08-01 Completed [facility] PFIZER VACCINE 00:00:00 [facility] SARS-COV-2 COVID-19 2020-08-01 Completed [facility] PFIZER VACCINE 00:00:00 [facility] SARS-COV-2 COVID-19 2020-08-01 Completed [facility] PFIZER VACCINE 00:00:00 [facility] SARS-COV-2 COVID-19 2020-08-01 Completed [facility] PFIZER VACCINE 00:00:00 [facility] SARS-COV-2 COVID-19 2020-08-01 Completed [facility] PFIZER VACCINE 00:00:00 [facility] SARS-COV-2 COVID-19 2020-08-01 Completed [facility] PFIZER VACCINE 00:00:00 [facility] SARS-COV-2 COVID-19 2020-08-01 Completed [facility] PFIZER VACCINE 00:00:00 [facility] SARS-COV-2 COVID-19 2020-08-01 Completed [facility] PFIZER VACCINE 00:00:00 [facility] SARS-COV-2 COVID-19 2020-08-01 Completed [facility] PFIZER VACCINE 00:00:00 [facility] SARS-COV-2 COVID-19 2020-08-01 Completed [facility] PFIZER VACCINE 00:00:00 [facility] SARS-COV-2 COVID-19 2020-08-01 Completed [facility] PFIZER VACCINE 00:00:00 [facility] SARS-COV-2 COVID-19 2020-08-01 Completed [facility] PFIZER VACCINE 00:00:00 [facility] SARS-COV-2 COVID-19 2020-08-01 Completed [facility] PFIZER VACCINE 00:00:00 [facility] SARS-COV-2 COVID-19 2020-08-01 Completed [facility] PFIZER VACCINE 00:00:00 [facility] SARS-COV-2 COVID-19 2020-08-01 Completed [facility] PFIZER VACCINE 00:00:00 [facility] SARS-COV-2 COVID-19 2020-08-01 Completed [facility] PFIZER VACCINE 00:00:00 [facility] SARS-COV-2 COVID-19 2020-08-01 Completed [facility] PFIZER VACCINE 00:00:00 [facility] SARS-COV-2 COVID-19 2020-08-01 Completed [facility] PFIZER VACCINE 00:00:00 [facility] SARS-COV-2 COVID-19 2020-08-01 Completed [facility] PFIZER VACCINE 00:00:00 [facility] SARS-COV-2 COVID-19 2020-08-01 Completed [facility] PFIZER VACCINE 00:00:00 [facility] SARS-COV-2 COVID-19 2020-08-01 Completed [facility] PFIZER VACCINE 00:00:00 [facility] SARS-COV-2 COVID-19 2020-08-01 Completed [facility] PFIZER VACCINE 00:00:00 [facility] SARS-COV-2 COVID-19 2020-08-01 Completed [facility] PFIZER VACCINE 00:00:00 [facility] SARS-COV-2 COVID-19 2020-08-01 Completed [facility] PFIZER VACCINE 00:00:00 [facility] SARS-COV-2 COVID-19 2020-08-01 Completed [facility] PFIZER VACCINE 00:00:00 [facility] SARS-COV-2 COVID-19 2020-08-01 Completed [facility] PFIZER VACCINE 00:00:00 [facility] SARS-COV-2 COVID-19 2020-08-01 Completed [facility] PFIZER VACCINE 00:00:00 [facility] SARS-COV-2 COVID-19 2020-08-01 Completed [facility] PFIZER VACCINE 00:00:00 [facility] SARS-COV-2 COVID-19 2020-08-01 Completed [facility] PFIZER VACCINE 00:00:00 [facility] SARS-COV-2 COVID-19 2020-08-01 Completed [facility] PFIZER VACCINE 00:00:00 [facility] SARS-COV-2 COVID-19 2020-08-01 Completed [facility] PFIZER VACCINE 00:00:00 [facility] SARS-COV-2 COVID-19 2020-08-01 Completed [facility] PFIZER VACCINE 00:00:00 [facility] SARS-COV-2 COVID-19 2020-08-01 Completed [facility] PFIZER VACCINE 00:00:00 [facility] SARS-COV-2 COVID-19 2020-08-01 Completed [facility] PFIZER VACCINE 00:00:00 [facility] SARS-COV-2 COVID-19 2020-08-01 Completed [facility] PFIZER VACCINE 00:00:00 [facility] SARS-COV-2 COVID-19 2020-08-01 Completed [facility] PFIZER VACCINE 00:00:00 [facility] SARS-COV-2 COVID-19 2020-08-01 Completed [facility] PFIZER VACCINE 00:00:00 [facility] SARS-COV-2 COVID-19 2020-08-01 Completed [facility] PFIZER VACCINE 00:00:00 [facility] SARS-COV-2 COVID-19 2020-08-01 Completed [facility] PFIZER VACCINE 00:00:00 [facility] SARS-COV-2 COVID-19 2020-08-01 Completed [facility] PFIZER VACCINE 00:00:00 [facility] SARS-COV-2 COVID-19 2020-08-01 Completed [facility] PFIZER VACCINE 00:00:00 [facility] SARS-COV-2 COVID-19 2020-08-01 Completed [facility] PFIZER VACCINE 00:00:00 [facility] SARS-COV-2 COVID-19 2020-08-01 Completed [facility] PFIZER VACCINE 00:00:00 [facility] SARS-COV-2 COVID-19 2020-08-01 Completed [facility] PFIZER VACCINE 00:00:00 [facility] SARS-COV-2 COVID-19 2020-08-01 Completed [facility] PFIZER VACCINE 00:00:00 [facility] SARS-COV-2 COVID-19 2020-08-01 Completed [facility] PFIZER VACCINE 00:00:00 [facility] SARS-COV-2 COVID-19 2020-08-01 Completed [facility] PFIZER VACCINE 00:00:00 [facility] SARS-COV-2 COVID-19 2020-08-01 Completed [facility] PFIZER VACCINE 00:00:00 [facility] SARS-COV-2 COVID-19 2020-08-01 Completed [facility] PFIZER VACCINE 00:00:00 [facility] SARS-COV-2 COVID-19 2020-08-01 Completed [facility] PFIZER VACCINE 00:00:00 [facility] SARS-COV-2 COVID-19 2020-08-01 Completed [facility] PFIZER VACCINE 00:00:00 [facility] SARS-COV-2 COVID-19 2020-08-01 Completed [facility] PFIZER VACCINE 00:00:00 [facility] SARS-COV-2 COVID-19 2020-08-01 Completed [facility] PFIZER VACCINE 00:00:00 [facility] SARS-COV-2 COVID-19 2020-08-01 Completed [facility] PFIZER VACCINE 00:00:00 [facility] SARS-COV-2 COVID-19 2020-07-11 Completed [facility] PFIZER VACCINE 00:00:00 [facility] SARS-COV-2 COVID-19 2020-07-11 Completed [facility] PFIZER VACCINE 00:00:00 [facility] SARS-COV-2 COVID-19 2020-07-11 Completed [facility] PFIZER VACCINE 00:00:00 [facility] SARS-COV-2 COVID-19 2020-07-11 Completed [facility] PFIZER VACCINE 00:00:00 [facility] SARS-COV-2 COVID-19 2020-07-11 Completed [facility] PFIZER VACCINE 00:00:00 [facility] SARS-COV-2 COVID-19 2020-07-11 Completed [facility] PFIZER VACCINE 00:00:00 [facility] SARS-COV-2 COVID-19 2020-07-11 Completed [facility] PFIZER VACCINE 00:00:00 [facility] SARS-COV-2 COVID-19 2020-07-11 Completed [facility] PFIZER VACCINE 00:00:00 [facility] SARS-COV-2 COVID-19 2020-07-11 Completed [facility] PFIZER VACCINE 00:00:00 [facility] SARS-COV-2 COVID-19 2020-07-11 Completed [facility] PFIZER VACCINE 00:00:00 [facility] SARS-COV-2 COVID-19 2020-07-11 Completed [facility] PFIZER VACCINE 00:00:00 [facility] SARS-COV-2 COVID-19 2020-07-11 Completed [facility] PFIZER VACCINE 00:00:00 [facility] SARS-COV-2 COVID-19 2020-07-11 Completed [facility] PFIZER VACCINE 00:00:00 [facility] SARS-COV-2 COVID-19 2020-07-11 Completed [facility] PFIZER VACCINE 00:00:00 [facility] SARS-COV-2 COVID-19 2020-07-11 Completed [facility] PFIZER VACCINE 00:00:00 [facility] SARS-COV-2 COVID-19 2020-07-11 Completed [facility] PFIZER VACCINE 00:00:00 [facility] SARS-COV-2 COVID-19 2020-07-11 Completed [facility] PFIZER VACCINE 00:00:00 [facility] SARS-COV-2 COVID-19 2020-07-11 Completed [facility] PFIZER VACCINE 00:00:00 [facility] SARS-COV-2 COVID-19 2020-07-11 Completed [facility] PFIZER VACCINE 00:00:00 [facility] SARS-COV-2 COVID-19 2020-07-11 Completed [facility] PFIZER VACCINE 00:00:00 [facility] SARS-COV-2 COVID-19 2020-07-11 Completed [facility] PFIZER VACCINE 00:00:00 [facility] SARS-COV-2 COVID-19 2020-07-11 Completed [facility] PFIZER VACCINE 00:00:00 [facility] SARS-COV-2 COVID-19 2020-07-11 Completed [facility] PFIZER VACCINE 00:00:00 [facility] SARS-COV-2 COVID-19 2020-07-11 Completed [facility] PFIZER VACCINE 00:00:00 [facility] SARS-COV-2 COVID-19 2020-07-11 Completed [facility] PFIZER VACCINE 00:00:00 [facility] SARS-COV-2 COVID-19 2020-07-11 Completed [facility] PFIZER VACCINE 00:00:00 [facility] SARS-COV-2 COVID-19 2020-07-11 Completed [facility] PFIZER VACCINE 00:00:00 [facility] SARS-COV-2 COVID-19 2020-07-11 Completed [facility] PFIZER VACCINE 00:00:00 [facility] SARS-COV-2 COVID-19 2020-07-11 Completed [facility] PFIZER VACCINE 00:00:00 [facility] SARS-COV-2 COVID-19 2020-07-11 Completed [facility] PFIZER VACCINE 00:00:00 [facility] SARS-COV-2 COVID-19 2020-07-11 Completed [facility] PFIZER VACCINE 00:00:00 [facility] SARS-COV-2 COVID-19 2020-07-11 Completed [facility] PFIZER VACCINE 00:00:00 [facility] SARS-COV-2 COVID-19 2020-07-11 Completed [facility] PFIZER VACCINE 00:00:00 [facility] SARS-COV-2 COVID-19 2020-07-11 Completed [facility] PFIZER VACCINE 00:00:00 [facility] SARS-COV-2 COVID-19 2020-07-11 Completed [facility] PFIZER VACCINE 00:00:00 [facility] SARS-COV-2 COVID-19 2020-07-11 Completed [facility] PFIZER VACCINE 00:00:00 [facility] SARS-COV-2 COVID-19 2020-07-11 Completed [facility] PFIZER VACCINE 00:00:00 [facility] SARS-COV-2 COVID-19 2020-07-11 Completed [facility] PFIZER VACCINE 00:00:00 [facility] SARS-COV-2 COVID-19 2020-07-11 Completed [facility] PFIZER VACCINE 00:00:00 [facility] SARS-COV-2 COVID-19 2020-07-11 Completed [facility] PFIZER VACCINE 00:00:00 [facility] SARS-COV-2 COVID-19 2020-07-11 Completed [facility] PFIZER VACCINE 00:00:00 [facility] SARS-COV-2 COVID-19 2020-07-11 Completed [facility] PFIZER VACCINE 00:00:00 [facility] SARS-COV-2 COVID-19 2020-07-11 Completed [facility] PFIZER VACCINE 00:00:00 [facility] SARS-COV-2 COVID-19 2020-07-11 Completed [facility] PFIZER VACCINE 00:00:00 [facility] SARS-COV-2 COVID-19 2020-07-11 Completed [facility] PFIZER VACCINE 00:00:00 [facility] SARS-COV-2 COVID-19 2020-07-11 Completed [facility] PFIZER VACCINE 00:00:00 [facility] SARS-COV-2 COVID-19 2020-07-11 Completed [facility] PFIZER VACCINE 00:00:00 [facility] SARS-COV-2 COVID-19 2020-07-11 Completed [facility] PFIZER VACCINE 00:00:00 [facility] SARS-COV-2 COVID-19 2020-07-11 Completed [facility] PFIZER VACCINE 00:00:00 [facility] SARS-COV-2 COVID-19 2020-07-11 Completed [facility] PFIZER VACCINE 00:00:00 [facility] SARS-COV-2 COVID-19 2020-07-11 Completed [facility] PFIZER VACCINE 00:00:00 [facility] SARS-COV-2 COVID-19 2020-07-11 Completed [facility] PFIZER VACCINE 00:00:00 [facility] SARS-COV-2 COVID-19 2020-07-11 Completed [facility] of PFIZER VACCINE 00:00:00 [facility] SARS-COV-2 COVID-19 2020-07-11 Completed [facility] of PFIZER VACCINE 00:00:00 [facility] SARS-COV-2 COVID-19 2020-07-11 Completed [facility] of PFIZER VACCINE 00:00:00 [facility] SARS-COV-2 COVID-19 2020-07-11 Completed [facility] of PFIZER VACCINE 00:00:00 [facility] SARS-COV-2 COVID-19 2020-07-11 Completed [facility] of PFIZER VACCINE 00:00:00 [facility] SARS-COV-2 COVID-19 2020-07-11 Completed [facility] of PFIZER VACCINE 00:00:00 [facility] SARS-COV-2 COVID-19 2020-07-11 Completed [facility] of PFIZER VACCINE 00:00:00 [facility] SARS-COV-2 COVID-19 2020-07-11 Completed [facility] of PFIZER VACCINE 00:00:00 [facility] SARS-COV-2 COVID-19 2020-07-11 Completed [facility] of PFIZER VACCINE 00:00:00 [facility] SARS-COV-2 COVID-19 2020-07-11 Completed [facility] of PFIZER VACCINE 00:00:00 [facility] SARS-COV-2 COVID-19 2020-07-11 Completed [facility] of PFIZER VACCINE 00:00:00 [facility] SARS-COV-2 COVID-19 2020-07-11 Completed [facility] of PFIZER VACCINE 00:00:00 [facility] SARS-COV-2 COVID-19 2020-07-11 Completed [facility] of PFIZER VACCINE 00:00:00 [facility] SARS-COV-2 COVID-19 2020-07-11 Completed [facility] of PFIZER VACCINE 00:00:00 [facility] SARS-COV-2 COVID-19 2020-07-11 Completed [facility] of PFIZER VACCINE 00:00:00 [facility] SARS-COV-2 COVID-19 2020-07-11 Completed [facility] of PFIZER VACCINE 00:00:00 [facility] SARS-COV-2 COVID-19 2020-07-11 Completed [facility] of PFIZER VACCINE 00:00:00 [facility] SARS-COV-2 COVID-19 2020-07-11 Completed [facility] of PFIZER VACCINE 00:00:00 [facility] SARS-COV-2 COVID-19 2020-07-11 Completed [facility] PFIZER VACCINE 00:00:00 [facility] SARS-COV-2 COVID-19 2020-07-11 Completed [facility] of PFIZER VACCINE 00:00:00 [facility] SARS-COV-2 COVID-19 2020-07-11 Completed [facility] of PFIZER VACCINE 00:00:00 [facility] SARS-COV-2 COVID-19 2020-07-11 Completed [facility] PFIZER VACCINE 00:00:00 [facility] SARS-COV-2 COVID-19 2020-07-11 Completed [facility] of PFIZER VACCINE 00:00:00 [facility] SARS-COV-2 COVID-19 2020-07-11 Completed [facility] PFIZER VACCINE 00:00:00 [facility] SARS-COV-2 COVID-19 2020-07-11 Completed [facility] PFIZER VACCINE 00:00:00 [facility] SARS-COV-2 COVID-19 2020-07-11 Completed [facility] PFIZER VACCINE 00:00:00 [facility] SARS-COV-2 COVID-19 2020-07-11 Completed [facility] PFIZER VACCINE 00:00:00 [facility] SARS-COV-2 COVID-19 2020-07-11 Completed [facility] PFIZER VACCINE 00:00:00 [facility] SARS-COV-2 COVID-19 2020-07-11 Completed [facility] PFIZER VACCINE 00:00:00 [facility] SARS-COV-2 COVID-19 2020-07-11 Completed [facility] of PFIZER VACCINE 00:00:00 [facility] SARS-COV-2 COVID-19 2020-07-11 Completed [facility] PFIZER VACCINE 00:00:00 [facility] SARS-COV-2 COVID-19 2020-07-11 Completed [facility] of PFIZER VACCINE 00:00:00 [facility] SARS-COV-2 COVID-19 2020-07-11 Completed [facility] of PFIZER VACCINE 00:00:00 [facility] SARS-COV-2 COVID-19 2020-07-11 Completed [facility] of PFIZER VACCINE 00:00:00 [facility] SARS-COV-2 COVID-19 2020-07-11 Completed [facility] of PFIZER VACCINE 00:00:00 [facility] SARS-COV-2 COVID-19 2020-07-11 Completed [facility] of PFIZER VACCINE 00:00:00 [facility] SARS-COV-2 COVID-19 2020-07-11 Completed [facility] of PFIZER VACCINE 00:00:00 [facility] SARS-COV-2 COVID-19 2020-07-11 Completed [facility] PFIZER VACCINE 00:00:00 [facility] SARS-COV-2 COVID-19 2020-07-11 Completed [facility] PFIZER VACCINE 00:00:00 [facility] TDAP 2017-05-03 Completed [facility] of 00:00:00 [facility] TDAP 2017-05-03 Completed [facility] of 00:00:00 [facility] TDAP 2017-05-03 Completed [facility] of 00:00:00 [facility] TDAP 2017-05-03 Completed [facility] of 00:00:00 [facility] TDAP 2017-05-03 Completed University of 00:00:00 [facility] TDAP 2017-05-03 Completed [facility] of 00:00:00 [facility] TDAP 2017-05-03 Completed [facility] of 00:00:00 [facility] TDAP 2017-05-03 Completed [facility] of 00:00:00 [facility] TDAP 2017-05-03 Completed University of 00:00:00 [facility] TDAP 2017-05-03 Completed [facility] of 00:00:00 [facility] TDAP 2017-05-03 Completed University of 00:00:00 [facility] TDAP 2017-05-03 Completed University of 00:00:00 [facility] TDAP 2017-05-03 Completed [facility] of 00:00:00 [facility] TDAP 2017-05-03 Completed University of 00:00:00 [facility] TDAP 2017-05-03 Completed University of 00:00:00 [facility] TDAP 2017-05-03 Completed [facility] of 00:00:00 [facility] TDAP 2017-05-03 Completed [facility] 00:00:00 [facility] TDAP 2017-05-03 Completed [facility] 00:00:00 [facility] TDAP 2017-05-03 Completed [facility] 00:00:00 [facility] TDAP 2017-05-03 Completed [facility] 00:00:00 [facility] TDAP 2017-05-03 Completed [facility] 00:00:00 [facility] TDAP 2017-05-03 Completed [facility] 00:00:00 [facility] TDAP 2017-05-03 Completed [facility] 00:00:00 [facility] TDAP 2017-05-03 Completed [facility] 00:00:00 [facility] TDAP 2017-05-03 Completed [facility] of 00:00:00 [facility] TDAP 2017-05-03 Completed University of 00:00:00 [facility] TDAP 2017-05-03 Completed University of 00:00:00 [facility] TDAP 2017-05-03 Completed University of 00:00:00 [facility] TDAP 2017-05-03 Completed University of 00:00:00 [facility] TDAP 2017-05-03 Completed [facility] of 00:00:00 [facility] TDAP 2017-05-03 Completed [facility] of 00:00:00 [facility] TDAP 2017-05-03 Completed University of 00:00:00 [facility] TDAP 2017-05-03 Completed [facility] of 00:00:00 [facility] TDAP 2017-05-03 Completed University of 00:00:00 [facility] TDAP 2017-05-03 Completed [facility] of 00:00:00 [facility] TDAP 2017-05-03 Completed [facility] 00:00:00 [facility] TDAP 2017-05-03 Completed [facility] 00:00:00 [facility] TDAP 2017-05-03 Completed [facility] 00:00:00 [facility] TDAP 2017-05-03 Completed [facility] of 00:00:00 [facility] TDAP 2017-05-03 Completed University of 00:00:00 [facility] TDAP 2017-05-03 Completed University of 00:00:00 [facility] TDAP 2017-05-03 Completed [facility] 00:00:00 [facility] TDAP 2017-05-03 Completed [facility] 00:00:00 [facility] TDAP 2017-05-03 Completed [facility] 00:00:00 [facility] TDAP 2017-05-03 Completed University of 00:00:00 [facility] TDAP 2017-05-03 Completed [facility] 00:00:00 [facility] TDAP 2017-05-03 Completed [facility] 00:00:00 [facility] TDAP 2017-05-03 Completed [facility] of 00:00:00 [facility] TDAP 2017-05-03 Completed [facility] of 00:00:00 [facility] TDAP 2017-05-03 Completed [facility] 00:00:00 [facility] TDAP 2017-05-03 Completed [facility] 00:00:00 [facility] TDAP 2017-05-03 Completed [facility] 00:00:00 [facility] TDAP 2017-05-03 Completed [facility] 00:00:00 [facility] TDAP 2017-05-03 Completed [facility] of 00:00:00 [facility] TDAP 2017-05-03 Completed [facility] of 00:00:00 [facility] TDAP 2017-05-03 Completed [facility] of 00:00:00 [facility] TDAP 2017-05-03 Completed [facility] of 00:00:00 [facility] TDAP 2017-05-03 Completed [facility] of 00:00:00 [facility] TDAP 2017-05-03 Completed [facility] of 00:00:00 [facility] TDAP 2017-05-03 Completed [facility] of 00:00:00 [facility] TDAP 2017-05-03 Completed [facility] of 00:00:00 [facility] TDAP 2017-05-03 Completed [facility] of 00:00:00 [facility] TDAP 2017-05-03 Completed [facility] of 00:00:00 [facility] TDAP 2017-05-03 Completed [facility] of 00:00:00 [facility] TDAP 2017-05-03 Completed [facility] of 00:00:00 [facility] TDAP 2017-05-03 Completed [facility] 00:00:00 [facility] TDAP 2017-05-03 Completed [facility] 00:00:00 [facility] TDAP 2017-05-03 Completed [facility] 00:00:00 [facility] TDAP 2017-05-03 Completed [facility] of 00:00:00 [facility] TDAP 2017-05-03 Completed [facility] of 00:00:00 [facility] TDAP 2017-05-03 Completed [facility] 00:00:00 [facility] TDAP 2017-05-03 Completed [facility] of 00:00:00 [facility] TDAP 2017-05-03 Completed University of 00:00:00 [facility] TDAP 2017-05-03 Completed [facility] of 00:00:00 [facility] TDAP 2017-05-03 Completed [facility] of 00:00:00 [facility] TDAP 2017-05-03 Completed University of 00:00:00 [facility] TDAP 2017-05-03 Completed [facility] of 00:00:00 [facility] TDAP 2017-05-03 Completed [facility] of 00:00:00 [facility] TDAP 2017-05-03 Completed [facility] of 00:00:00 [facility] TDAP 2017-05-03 Completed [facility] of 00:00:00 [facility] TDAP 2017-05-03 Completed [facility] of 00:00:00 [facility] TDAP 2017-05-03 Completed [facility] of 00:00:00 [facility] TDAP 2017-05-03 Completed [facility] of 00:00:00 [facility] TDAP 2017-05-03 Completed [facility] of 00:00:00 [facility] TDAP 2017-05-03 Completed [facility] of 00:00:00 [facility] TDAP 2017-05-03 Completed [facility] of 00:00:00 [facility] TDAP 2017-05-03 Completed [facility] of 00:00:00 [facility] TDAP 2017-05-03 Completed [facility] of 00:00:00 [facility] TDAP 2017-05-03 Completed [facility] of 00:00:00 [facility] TDAP 2017-05-03 Completed [facility] of 00:00:00 [facility] TDAP 2017-05-03 Completed [facility] 00:00:00 [facility] SARS-COV-2 COVID-19 Unknown Completed [facility] of PFIZER VACCINE [facility] SARS-COV-2 COVID-19 Unknown Completed [facility] PFIZER VACCINE [facility] TDAP Unknown Completed [facility] Influenza Virus Unknown Completed [facility] Vaccine,quad [place] [facility] 65+ (FLUAD) SARS-COV-2 COVID-19 Unknown Completed [facility] of PFIZER VACCINE [facility] Influenza Virus Unknown Completed [facility] Vaccine,quad [place] [facility] 65+ (FLUAD) SARS-COV-2 COVID-19 Unknown Completed [facility] [place] [facility] VACCINE 12 YRS+, Branch BIVALENT 0.3ML, IM, (PFIZER MEZA TOP) Pneumococcal 20 Unknown Completed [facility] of Conjugate, PCV20 [place] [facility] (Prevnar 20) Branch SARS-COV-2 COVID-19 Unknown Completed [facility] of PFIZER VACCINE [facility] SARS-COV-2 COVID-19 Unknown Completed [facility] of PFIZER VACCINE [facility] TDAP Unknown Completed [facility] Influenza Virus Unknown Completed [facility] Vaccine,quad [place] [facility] 65+ (FLUAD) SARS-COV-2 COVID-19 Unknown Completed [facility] of PFIZER VACCINE [facility] Influenza Virus Unknown Completed [facility] Vaccine,quad [place] [facility] 65+ (FLUAD) SARS-COV-2 COVID-19 Unknown Completed [facility] [place] [facility]ACCINE 12 Y[facility]+, Branch BIVALENT 0.3ML, IM, (PFIZER MEZA TOP) Pneumococcal 20 Unknown Completed [facility] of Conjugate, PCV20 [place] [facility] (Prevnar 20) Branch SARS-COV-2 COVID-19 Unknown Completed [facility] of PFIZER VACCINE [facility] SARS-COV-2 COVID-19 Unknown Completed [facility] of PFIZER VACCINE [facility] TDAP Unknown Completed [facility] Influenza Virus Unknown Completed [facility] Vaccine,quad [place] [facility] 65+ (FLUAD) SARS-COV-2 COVID-19 Unknown Completed [facility] of PFIZER VACCINE [facility] Influenza Virus Unknown Completed [facility] Vaccine,quad [place] [facility],preserve [facility] 65+ (FLUAD) SARS-COV-2 COVID-19 Unknown Completed [facility] [place] [facility]ACCINE 12 Y[facility]+, Branch BIVALENT 0.3ML, IM, (PFIZER MEZA TOP) Pneumococcal 20 Unknown Completed [facility] Conjugate, PCV20 [place] [facility] (Prevnar 20) Branch SARS-COV-2 COVID-19 Unknown Completed [facility] of PFIZER VACCINE [facility] SARS-COV-2 COVID-19 Unknown Completed [facility] PFIZER VACCINE [facility] TDAP Unknown Completed [facility] Influenza Virus Unknown Completed [facility] Vaccine,quad [place] [facility] 65+ (FLUAD) SARS-COV-2 COVID-19 Unknown Completed [facility] PFIZER VACCINE [facility] Influenza Virus Unknown Completed [facility] Vaccine,quad [place] [facility],preserve Free [facility] 65+ (FLUAD) SARS-COV-2 COVID-19 Unknown Completed [facility] [place] [facility] VACCINE 12 YRS+, Branch BIVALENT 0.3ML, IM, (PFIZER MEZA TOP) Pneumococcal 20 Unknown Completed [facility] Conjugate, PCV20 [place] [facility] (Prevnar 20) Branch SARS-COV-2 COVID-19 Unknown Completed [facility] of PFIZER VACCINE [facility] SARS-COV-2 COVID-19 Unknown Completed [facility] of PFIZER VACCINE [facility] TDAP Unknown Completed [facility] Influenza Virus Unknown Completed [facility] Vaccine,quad [place] [facility] 65+ (FLUAD) SARS-COV-2 COVID-19 Unknown Completed [facility] of PFIZER VACCINE [facility] Influenza Virus Unknown Completed [facility] Vaccine,quad [place] [facility],preserve Free [facility] 65+ (FLUAD) SARS-COV-2 COVID-19 Unknown Completed [facility] [place] [facility] VACCINE 12 YRS+, Branch BIVALENT 0.3ML, IM, (PFIZER MEZA TOP) Pneumococcal 20 Unknown Completed [facility] Conjugate, PCV20 [place] [facility] (Prevnar 20) Branch SARS-COV-2 COVID-19 Unknown Completed [facility] of PFIZER VACCINE [facility] SARS-COV-2 COVID-19 Unknown Completed [facility] of PFIZER VACCINE [facility] TDAP Unknown Completed [facility] Influenza Virus Unknown Completed [facility] Vaccine,quad [place] [facility] 65+ (FLUAD) SARS-COV-2 COVID-19 Unknown Completed [facility] of PFIZER VACCINE [facility] Influenza Virus Unknown Completed [facility] Vaccine,quad [place] [facility],preserve Free [facility] 65+ (FLUAD) SARS-COV-2 COVID-19 Unknown Completed [facility] [place] [facility]ACCINE 12 YRS+, Branch BIVALENT 0.3ML, IM, (PFIZER MEZA TOP) Pneumococcal 20 Unknown Completed [facility] Conjugate, PCV20 [place] [facility] (Prevnar 20) Branch SARS-COV-2 COVID-19 Unknown Completed [facility] of PFIZER VACCINE [facility] SARS-COV-2 COVID-19 Unknown Completed [facility] of PFIZER VACCINE [facility] TDAP Unknown Completed [facility] Influenza Virus Unknown Completed [facility] Vaccine,quad [place] [facility] 65+ (FLUAD) SARS-COV-2 COVID-19 Unknown Completed [facility] of PFIZER VACCINE [facility] Influenza Virus Unknown Completed [facility] Vaccine,quad [place] [facility],preserve Free [facility] 65+ (FLUAD) SARS-COV-2 COVID-19 Unknown Completed [facility] [place] [facility]ACCINE 12 YRS+, Branch BIVALENT 0.3ML, IM, (PFIZER MEZA TOP) Pneumococcal 20 Unknown Completed [facility] of Conjugate, PCV20 [place] [facility] (Prevnar 20) Branch SARS-COV-2 COVID-19 Unknown Completed [facility] of PFIZER VACCINE [facility] SARS-COV-2 COVID-19 Unknown Completed [facility] of PFIZER VACCINE [facility] TDAP Unknown Completed [facility] Influenza Virus Unknown Completed [facility] Vaccine,quad [place] [facility] 65+ (FLUAD) SARS-COV-2 COVID-19 Unknown Completed [facility] of PFIZER VACCINE [facility] Influenza Virus Unknown Completed [facility] Vaccine,quad [place] [facility],preserve Free [facility] 65+ (FLUAD) SARS-COV-2 COVID-19 Unknown Completed [facility] [place] [facility]INE 12 Y[facility]+, Branch BIVALENT 0.3ML, IM, (PFIZER MEZA TOP) Pneumococcal 20 Unknown Completed [facility] of Conjugate, PCV20 [place] [facility] (Prevnar 20) Branch SARS-COV-2 COVID-19 Unknown Completed [facility] of PFIZER VACCINE [facility] SARS-COV-2 COVID-19 Unknown Completed [facility] of PFIZER VACCINE [facility] TDAP Unknown Completed [facility] Influenza Virus Unknown Completed [facility] Vaccine,quad [place] [facility] 65+ (FLUAD) SARS-COV-2 COVID-19 Unknown Completed [facility] of PFIZER VACCINE [facility] Influenza Virus Unknown Completed [facility] Vaccine,quad [place] [facility],preserve Free [facility] 65+ (FLUAD) SARS-COV-2 COVID-19 Unknown Completed [facility] [place] [facility]ACCINE 12 YRS+, Branch BIVALENT 0.3ML, IM, (PFIZER MEZA TOP) Pneumococcal 20 Unknown Completed [facility] of Conjugate, PCV20 [place] [facility] (Prevnar 20) Branch SARS-COV-2 COVID-19 Unknown Completed [facility] of PFIZER VACCINE [facility] SARS-COV-2 COVID-19 Unknown Completed [facility] of PFIZER VACCINE [facility] TDAP Unknown Completed [facility] Influenza Virus Unknown Completed [facility] Vaccine,quad [place] [facility] 65+ (FLUAD) SARS-COV-2 COVID-19 Unknown Completed [facility] of PFIZER VACCINE [facility] Influenza Virus Unknown Completed [facility] Vaccine,quad [place] [facility],preserve Free [facility] 65+ (FLUAD) SARS-COV-2 COVID-19 Unknown Completed [facility] [place] [facility]ACCINE 12 YRS+, Branch BIVALENT 0.3ML, IM, (PFIZER MEZA TOP) Pneumococcal 20 Unknown Completed [facility] Conjugate, PCV20 [place] [facility] (Prevnar 20) Branch SARS-COV-2 COVID-19 Unknown Completed [facility] of PFIZER VACCINE [facility] SARS-COV-2 COVID-19 Unknown Completed [facility] of PFIZER VACCINE [facility] TDAP Unknown Completed [facility] Influenza Virus Unknown Completed [facility] Vaccine,quad [place] [facility] 65+ (FLUAD) SARS-COV-2 COVID-19 Unknown Completed [facility] of PFIZER VACCINE [facility] Influenza Virus Unknown Completed [facility] Vaccine,quad [place] [facility],preserve Free [facility] 65+ (FLUAD) SARS-COV-2 COVID-19 Unknown Completed [facility] [place] [facility]ACCINE 12 YRS+, Branch BIVALENT 0.3ML, IM, (PFIZER MEZA TOP) Pneumococcal 20 Unknown Completed [facility] of Conjugate, PCV20 [place] [facility] (Prevnar 20) Branch SARS-COV-2 COVID-19 Unknown Completed [facility] of PFIZER VACCINE [facility] SARS-COV-2 COVID-19 Unknown Completed [facility] of PFIZER VACCINE [facility] TDAP Unknown Completed [facility] Influenza Virus Unknown Completed [facility] Vaccine,quad [place] [facility] 65+ (FLUAD) SARS-COV-2 COVID-19 Unknown Completed [facility] of PFIZER VACCINE [facility] Influenza Virus Unknown Completed [facility] Vaccine,quad [place] [facility],preserve Free [facility] 65+ (FLUAD) SARS-COV-2 COVID-19 Unknown Completed [facility] [place] [facility] VACCINE 12 YRS+, Branch BIVALENT 0.3ML, IM, (PFIZER MEZA TOP) Pneumococcal 20 Unknown Completed [facility] of Conjugate, PCV20 [place] [facility] (Prevnar 20) Branch Influenza Virus Unknown Completed [facility] Vaccine,quad [place] [facility],preserve Free [facility] 65+ (FLUAD) SARS-COV-2 COVID 19 Unknown Completed [facility] [place] [facility] VACCINE 12+, Branch [id number], 0.3 ML (30 MCG), IM PFIZER (MEZA TOP) SARS-COV-2 COVID-19 Unknown Completed [facility] of PFIZER VACCINE [facility] SARS-COV-2 COVID-19 Unknown Completed [facility] of PFIZER VACCINE [facility] TDAP Unknown Completed [facility] Influenza Virus Unknown Completed [facility] Vaccine,quad [place] [facility] 65+ (FLUAD) SARS-COV-2 COVID-19 Unknown Completed [facility] of PFIZER VACCINE [facility] Influenza Virus Unknown Completed [facility] Vaccine,quad [place] [facility],preserve Free [facility] 65+ (FLUAD) SARS-COV-2 COVID-19 Unknown Completed [facility] [place] [facility] VACCINE 12 YRS+, Branch BIVALENT 0.3ML, IM, (PFIZER MEZA TOP) Pneumococcal 20 Unknown Completed [facility] of Conjugate, PCV20 [place] [facility] (Prevnar 20) Branch Influenza Virus Unknown Completed [facility] Vaccine,quad [place] [facility],preserve Free [facility] 65+ (FLUAD) SARS-COV-2 COVID 19 Unknown Completed [facility] of [facility] [place] [facility] VACCINE 12+, Branch [id number], 0.3 ML (30 MCG), IM PFIZER (MEZA TOP) SARS-COV-2 COVID-19 Unknown Completed [facility] PFIZER VACCINE [place] [facility] SARS-COV-2 COVID-19 Unknown Completed [facility] of PFIZER VACCINE [facility] Branch TDAP Unknown Completed [facility] Influenza Virus Unknown Completed Universit y of Vaccine,quad [place] [facility] Im,preserve Free Branch 65+ (FLUAD) SARS-COV-2 COVID-19 Unknown Completed Unive rsity of PFIZER VACCINE [facility] Influenza Virus Unknown Completed Universit y of Vaccine,quad [place] [facility] Im,preserve Free Branch 65+ (FLUAD) SARS-COV-2 COVID-19 Unknown Completed Unive rsity of CLARISSA-SUCROSE [place] [facility] VACCINE 12 YRS+, Branch BIVALENT 0.3ML, IM, (PFIZER MEZA TOP) Pneumococcal 20 Unknown Completed Universit y of Conjugate, PCV20 [facility] dical (Prevnar 20) Branch Influenza Virus Unknown Completed Universit y of Vaccine,quad [place] [facility] Im,preserve Free Branch 65+ (FLUAD) SARS-COV-2 COVID 19 Unknown Completed Unive rsity of CLARISSA SUCROSE [place] [facility] VACCINE 12+, Branch , 0.3 ML (30 MCG), IM PFIZER (MEZA TOP) Vital Signs Vital Name Observation Time Observation Value Comments Source Systolic blood 2023-03-12 16:52:00 133 mm[Hg] Univer sity of pressure [facility] Diastolic blood 2023-03-12 16:52:00 80 mm[Hg] Unive rsity of pressure [facility] Heart rate 2023-03-12 16:52:00 68 /min [facility] Respiratory rate 2023-03-12 16:52:00 18 /min [facility] Body height 2023-03-12 16:52:00 144.8 cm [facility] Body weight 2023-03-12 16:52:00 117.028 kg [facility] BMI 2023-03-12 16:52:00 55.83 kg/m2 [facility] Oxygen saturation in 2023-03-12 16:52:00 95 /min [facility] Arterial blood by [facility] Pulse oximetry Branch Systolic blood 2023-01-27 14:47:00 131 mm[Hg] Univer sity of pressure [facility] Diastolic blood 2023-01-27 14:47:00 70 mm[Hg] Unive rsity of pressure [facility] Heart rate 2023-01-27 14:47:00 64 /min [facility] [place] [facility] Body height 2023-01-27 14:47:00 149.9 cm [facility] [place] [facility] Body weight 2023-01-27 14:47:00 116.121 kg [facility] [place] [facility] BMI 2023-01-27 14:47:00 51.71 kg/m2 [facility] [place] [facility] Oxygen saturation in 2023-01-27 14:47:00 91 /min University of Arterial blood by [facility] shaji Pulse oximetry Branch Systolic blood 2023-01-08 14:35:00 115 mm[Hg] Univer sity of pressure [facility] Diastolic blood 2023-01-08 14:35:00 61 mm[Hg] Unive rsity of pressure [facility] Heart rate 2023-01-08 14:35:00 69 /min [facility] [place] [facility] Body temperature 2023-01-08 14:35:00 36.83 Kirsten Univ ersity of [place] [facility] Body height 2023-01-08 14:35:00 149.9 cm [facility] [place] [facility] Body weight 2023-01-08 14:35:00 116.847 kg [facility] [place] [facility] BMI 2023-01-08 14:35:00 52.03 kg/m2 [facility] [place] [facility] Oxygen saturation in 2023-01-08 14:35:00 95 /min University of Arterial blood by [facility] Pulse oximetry Branch Systolic blood 2022-12-25 20:38:00 125 mm[Hg] Univer sity of pressure [facility] Diastolic blood 2022-12-25 20:38:00 74 mm[Hg] Unive rsity of pressure [facility] Heart rate 2022-12-25 20:38:00 82 /min [facility] [place] [facility] Body temperature 2022-12-25 20:38:00 36.72 Kirsten Univ ersity of [place] [facility] Body height 2022-12-25 20:38:00 149.9 cm [facility] [place] [facility] Body weight 2022-12-25 20:38:00 120.475 kg [facility] [place] [facility] BMI 2022-12-25 20:38:00 53.64 kg/m2 [facility] [place] [facility] Oxygen saturation in 2022-12-25 20:38:00 93 /min University of Arterial blood by [place] [facility] shaji Pulse oximetry Branch Systolic blood 2022-12-03 15:54:00 137 mm[Hg] Univer sity of pressure [facility] Diastolic blood 2022-12-03 15:54:00 80 mm[Hg] Unive rsity of pressure [facility] Heart rate 2022-12-03 15:54:00 104 /min [facility] [place] [facility] Body temperature 2022-12-03 15:54:00 36.72 Kirsten Univ ersity of [place] [facility] Body height 2022-12-03 15:54:00 149.9 cm [facility] [place] [facility] Body weight 2022-12-03 15:54:00 121.882 kg [facility] [place] [facility] BMI 2022-12-03 15:54:00 54.27 kg/m2 [facility] [place] [facility] Oxygen saturation in 2022-12-03 15:54:00 94 /min University of Arterial blood by [facility] Pulse oximetry Branch Systolic blood 2022-11-25 15:06:00 155 mm[Hg] Univer sity of pressure [facility] Diastolic blood 2022-11-25 15:06:00 87 mm[Hg] Unive rsity of pressure [facility] Heart rate 2022-11-25 15:06:00 81 /min [facility] [place] [facility] Body height 2022-11-25 15:06:00 149.9 cm [facility] [place] [facility] Body weight 2022-11-25 15:06:00 117.436 kg [facility] [place] [facility] BMI 2022-11-25 15:06:00 52.29 kg/m2 [facility] [place] [facility] Oxygen saturation in 2022-11-25 15:06:00 97 /min University of Arterial blood by [place] [facility]aji Pulse oximetry Branch Systolic blood 2022-09-08 14:35:00 134 mm[Hg] Univer sity of pressure [facility] Diastolic blood 2022-09-08 14:35:00 83 mm[Hg] Unive rsity of pressure [facility] Heart rate 2022-09-08 14:35:00 72 /min [facility] [place] [facility] Body height 2022-09-08 14:35:00 152.4 cm [facility] [place] [facility] Body weight 2022-09-08 14:35:00 120.929 kg [facility] [place] [facility] BMI 2022-09-08 14:35:00 52.07 kg/m2 [facility] [place] [facility] Oxygen saturation in 2022-09-08 14:35:00 97 /min University of Arterial blood by [place] [employer] shaji Pulse oximetry Branch Systolic blood 2022-07-03 16:24:00 118 mm[Hg] Univer sity of pressure [facility] Diastolic blood 2022-07-03 16:24:00 71 mm[Hg] Unive rsity of pressure [facility] Heart rate 2022-07-03 16:23:00 87 /min [facility] [place] [facility] Body temperature 2022-07-03 16:23:00 37.06 Kirsten Univ ersity of [place] [facility] Body height 2022-07-03 16:23:00 152.4 cm [facility] [place] [facility] Body weight 2022-07-03 16:23:00 119.75 kg [facility] [place] [facility] BMI 2022-07-03 16:23:00 51.56 kg/m2 [facility] [place] [facility] Systolic blood 2022-06-08 16:27:00 143 mm[Hg] Univer sity of pressure [place] [facility] Diastolic blood 2022-06-08 16:27:00 73 mm[Hg] Unive rsity of pressure [facility] Heart rate 2022-06-08 16:26:00 73 /min [facility] [place] [facility] Body height 2022-06-08 16:26:00 152.4 cm [facility] [place] [facility] Body weight 2022-06-08 16:26:00 118.842 kg [facility] [place] [facility] BMI 2022-06-08 16:26:00 51.17 kg/m2 [facility] [place] [facility] Oxygen saturation in 2022-06-08 16:26:00 96 /min University of Arterial blood by [place] [employer] shaji Pulse oximetry Branch Systolic blood 2022-05-27 15:31:00 147 mm[Hg] Univer sity of pressure [facility] Diastolic blood 2022-05-27 15:31:00 86 mm[Hg] Unive rsity of pressure [facility] Heart rate 2022-05-27 15:31:00 75 /min [facility] [place] [facility] Body height 2022-05-27 15:31:00 152.4 cm [facility] [place] [facility] Body weight 2022-05-27 15:31:00 114.443 kg [facility] [place] [facility] BMI 2022-05-27 15:31:00 49.27 kg/m2 [facility] [place] [facility] Oxygen saturation in 2022-05-27 15:31:00 95 /min University of Arterial blood by [facility] Pulse oximetry Branch Body temperature 2022-05-27 15:28:00 36.28 Kirsten Univ ersity of [place] [facility] Systolic blood 2022-04-06 15:02:00 135 mm[Hg] Univer sity of pressure [facility] Diastolic blood 2022-04-06 15:02:00 79 mm[Hg] Unive rsity of pressure [facility] Heart rate 2022-04-06 14:54:00 80 /min [facility] [place] [facility] Body temperature 2022-04-06 14:54:00 36.67 Kirsten Univ ers[facility] [place] [facility] Body height 2022-04-06 14:54:00 149.9 cm [facility] [place] [facility] Body weight 2022-04-06 14:54:00 119.296 kg [facility] [place] [facility] BMI 2022-04-06 14:54:00 53.12 kg/m2 [facility] [place] [facility] Oxygen saturation in 2022-04-06 14:54:00 97 /min University of Arterial blood by [facility] Pulse oximetry Branch Systolic blood 2022-01-26 15:50:00 139 mm[Hg] Univer sity of pressure [facility] Diastolic blood 2022-01-26 15:50:00 80 mm[Hg] Unive rsity of pressure [facility] Heart rate 2022-01-26 15:50:00 70 /min [facility] [place] [facility] Body temperature 2022-01-26 15:50:00 36.56 Kirsten Univ [facility] [place] [facility] Body height 2022-01-26 15:50:00 144.8 cm [facility] [place] [facility] Body weight 2022-01-26 15:50:00 117.935 kg [facility] BMI 2022-01-26 15:50:00 56.26 kg/m2 [facility] Oxygen saturation in 2022-01-26 15:50:00 94 /min [facility] Arterial blood by [facility] Pulse oximetry Branch Systolic blood 2022-01-19 13:58:00 130 mm[Hg] Univer sity of pressure [facility] Diastolic blood 2022-01-19 13:58:00 70 mm[Hg] [facility] 2022-01-19 13:58:00 80 /min [facility] Body temperature 2022-01-19 13:58:00 36.56 Kirsten [facility] Res[facility] rate 2022-01-19 13:58:00 18 /min [facility] Body height 2022-01-19 13:58:00 144.8 cm [facility] Body weight 2022-01-19 13:58:00 117.935 kg [facility] BMI 2022-01-19 13:58:00 56.26 kg/m2 [facility] Procedures Procedure Date / Time Performing Clinician Source Performed FLU 2023-03-12 17:50:[address] [facility] [place] VACC([id number]),65+YR,0.5 Medica l Branch ML,IM,ADJUVANTED,QUAD(FLU AD) SARS-COV-2 COVID 19 CLARISSA 2023-03-12 17:50:14 [facility] SUCROSE VACCINE 12+, Medical [facility] , 0.3 ML (30 MCG), IM PFIZER (MEZA TOP) DME/SUPPLY JUSTIFICATION 2022-12-20 05:01:00 Doctor Unassigned, [facility] COMP. METABOLIC PANEL 2022-12-03 17:15:00 Desiree Boudreaux Un [facility] ([id number]) [facility] LIPID PANEL (49230)(TOTAL 2022-12-03 17:15:00 Desiree [facility]reaux [facility] TRIGLY[facility], HDL) URINALYSIS 2022-12-03 17:15:[address] [facility] [place] [facility] EXTERNAL PROVIDER RECORDS 2022-10-27 05:01:00 Doctor Unassigned, [facility] EXTERNAL PROVIDER RECORDS 2022-09-25 05:01:00 Doctor Unassigned, [facility] PNEUMOCOCCAL 20 CONJUGATE 2022-09-08 14:59:48 Cinthya Duarte [facility] (PREVNAR 20) VACCINE Medical [facility] US ABDOMEN LIMITED 2022-08-28 15:08:01 Dominic Landeros [facility] C Medical Branch CONSENT/REFUSAL FOR 2022-08-28 13:59:48 Doctor Unademi [facility] DIAGNOSIS AND TREATMENT [facility] [place] ASSIGNMENT OF BENEFITS 2022-08-28 13:59:29 Doctor Unademi, [facility] Name Medical [place] EXTERNAL PROVIDER - ADC 2022-08-11 05:01:00 Doctor Karolyn, [facility] CARDIOLOGY [facility] [place] INSURANCE CORRESPONDENCE 2022-08-04 05:01:00 Doctor Karolyn, [facility] PATIENT FINANCIAL 2022-07-03 15:51:37 Doctor Karolyn, [facility] POLICY [facility] [place] POCT URINALYSIS W/O 2022-07-03 00:00:00 Alejandra Nice [facility] SPECIFIC GRAVITY Medical Branch COMP. METABOLIC PANEL 2022-05-25 15:13:00 [facility] ([id number]) Medical [place] GLYCOSYLATED HEMOGLOBIN 2022-05-25 15:13:00 [facility] (A1C) Medical Branch MEDICATION CORRESPONDENCE 2022-05-13 06:01:00 Doctor Karolyn, [facility] FLU 2022-01-26 16:14:39 [facility] VACC(),65+YR,0.5 Medica l Branch ML,IM,ADJUVANTED,QUAD(FLU AD) SARS-COV-2 COVID-19 2022-01-26 16:14:39 [facility] CLARISSA-SUCROSE VACCINE 12 Medical Branch YRS+, BIVALENT 0.3ML, IM, (PFIZER MEZA TOP BOOSTER) Plan of Care Planned Activity Planned Date Details Comments Source Encounters Start End Encounter Admission Attending Care Care Encounter Source Date/Time Date/Time Type Type Clinicians Facility Department ID 2021-03-05 Outpatient R TREY [facility] [id number] Univers 16:30:28 DOMINIC Schilling [facility] 2023-09-10 2023-09-10 Outpatient R CINTHYA DUARTE [facility] [id number] Univers 09:40:00 09:40:00 CINTHYA DUARTE eva [facility] 2023-04-16 2023-04-16 Outpatient R SUMAN [facility] [id number] Univers 11:20:00 11:20:00 CINTHYA DUARTE [facility] 2023-03-12 2023-03-12 Pharmacy Clerk Lab, Ang - [facility] 1.2.840.1 14 [id number] Univers 14:30:00 14:30:00 [facility] 350.1.13.10 ity [facility] 4.2.7.2.686 Stephan as SAMUEL?BLEA [id number] [facility] 353 [facility] OFFICE [facility] 2023-03-12 2023-03-12 Outpatient R CINTHYA DUARTE [facility] [id number] Univers 14:30:00 12:19:06 CINTHYA DUARTE [facility] 2023-03-12 2023-03-12 Office [facility] 1.2.840.114 [id number] Univers 11:20:00 12:00:00 Visit [facility] 350.1.13.10 ity [facility] 4.2.7.2.686 Stephan as SAMUEL?BLEA [id number] [facility] 044 [facility] OFFICE [facility] 2023-03-11 2023-03-11 Aron Boudreaux [facility] 1.2.840.114 [id number] Univers 00:00:00 00:00:00 Desiree [facility] 350.1.13.10 ity [facility] 4.2.7.2.[place] [id number] Ar dictn NAL 059 [facility] 2023-03-11 2023-03-11 [facility] 1.2.840.114 [id number] Univers 00:00:00 00:00:00 Cinthya HEALTH 350.1.13.10 ity of [place] 4.2.7.2.686 Stephan as SAMUEL?BLEA [id number] [facility] [address] 2023-02-25 2023-02-25 [facility] 1.2.840.114 [id number] Univers 00:00:00 00:00:00 Cinthya HEALTH 350.1.13.10 ity of [place] 4.2.7.2.686 Stephan as SAMUEL?BLEA [id number] [address] 2023-02-25 2023-02-25 Telephone [facility] 1.2.066.803 [id number] Univers 00:00:00 00:00:00 Cinthya HEALTH 350.1.13.10 ity of [place] 4.2.7.2.686 Stephan as SAMUEL?BLEA [id number] [address] 2023-01-29 2023-01-29 [facility]ill [facility] 1.2.840.114 [id number] Univers 00:00:00 00:00:00 Sendil PalomaHIsidro KAN 350.1.13.10 ity [place]2.[place].2.[place] [id number] [facility] 843 [facility] 2023-01-27 2023-01-27 Office [facility] 1.2.840.114 [id number] Univers 10:00:00 10:30:00 Visit Sendmindy K.HIsidro KAN 350.1.13.10 ity [place] 4.2.7.2.[place] [id number] [facility] 059 [facility] 2023-01-27 2023-01-27 Outpatient R JANUSZ [facility] [id number] Univers 10:00:00 10:00:00 SENDIL ity [facility] 2023-01-27 2023-01-27 Pharmacy Clerk 2, Adc Lab [facility] 1.2.840.114 [id number] Univers 09:15:00 09:30:00 Visit Desiree Boudreaux 350.1.13. 10 [facility] 4.2.7.2.[place] [id number] [facility] 353 [facility] 2023-01-25 2023-01-25 Refill [facility] 1.2.840.114 [id number] Univers 00:00:00 00:00:00 Desiree KAN 350.1.13.10 ity [facility] 4.2.7.2.[place] [id number] [facility] 059 [facility] 2023-01-14 2023-01-14 Refill [facility] 1.2.840.114 [id number] Univers 00:00:00 00:00:00 Desiree KAN 350.1.13.10 ity [place] 4.2.7.2.[place] [id number] [facility] 059 [facility] 2023-01-08 2023-01-08 Pharmacy Clerk Lab, Ang - Db [facility] 1.2.840.1 14 [id number] Univers 10:30:00 10:45:00 [facility] 350.1.13.10 ity of [place] 4.2.7.2.686 Stephan as SAMUEL?BLEA [id number] [address] OFFICE [facility] 2023-01-08 2023-01-08 Outpatient R CINTHYA DUARTE [facility] [id number] Univers 10:30:00 10:30:00 CINTHYA DUARTE [facility] 2023-01-08 2023-01-08 Office [facility] 1.2.840.114 [id number] [facility] 09:40:00 10:17:24 Visit [facility] 350.1.13.10 ity of [place] 4.2.7.2.686 Stephan as SAMUEL?BLEA [id number] [facility] 044 [facility] OFFICE [facility] 2023-01-08 2023-01-08 Refill [facility] 1.2.840.114 [id number] Univers 00:00:00 00:00:00 Sendil Ophelia.H. LUCIUS 350.1.13.10 ity of [place] 4.2.7.2.[place] [id number] [facility] NAL 059 [facility] 2022-12-28 2022-12-28 Patient [facility] 1.2.840.114 [id number] Univers 00:00:00 00:00:00 Outreach Critical access hospital 350.1.13.10 i ty of [place] 4.2.7.2.686 Stephan as SAMUEL?BLEA [id number] Ar erendira PRUITT 044 [facility] OFFICE [facility] 2022-12-25 2022-12-25 Pharmacy Clerk Lab, Ang - Db [facility] 1.2.840.1 14 [id number] Univers 17:00:00 17:15:00 Visit [facility] 350.1.13.10 ity of [place] 4.2.7.2.686 Stephan as SAMUEL?BLEA [id number] Ar erendira PRUITT 353 [facility] OFFICE [facility] 2022-12-25 2022-12-25 Outpatient R CINTHYA DUARTE [facility] [id number] Univers 16:00:00 16:46:13 SUMAN CINTHYA ity [facility] 2022-12-25 2022-12-25 Office [facility] 1.2.840.114 [id number] Univers 16:00:00 16:46:13 Visit [facility] 350.1.13.10 ity of [place] 4.2.7.2.686 Stephan as SAMUEL?BLEA [id number] Ar erendira PRUITT 044 [facility] OFFICE [facility] 2022-12-25 2022-12-25 Refill [facility] 1.2.840.114 [id number] Univers 00:00:00 00:00:00 Sendil Indira. LUCIUS 350.1.13.10 ity of [place] 4.2.7.2.[place] [id number] [place] 381539 [facility] 2022-12-24 2022-12-24 Refill [facility] 1.2.840.114 [id number] Univers 00:00:00 00:00:00 [facility] 350.1.13.10 ity of [place] 4.2.7.2.686 Stephan as SAMUEL?BLEA [id number] [address] OFFICE [facility] 2022-12-22 2022-12-22 Telephone Janusz [facility] 1.2.026.629 [id number] Univers 00:00:00 00:00:00 Sendmindy KAN 350.1.13.10 ity of [place] 4.2.7.2.[place] [id number] [address] 2022-12-20 2022-12-20 Orders Doctor ROSANNA 1.2.840.114 [id number] Univers 00:00:00 00:00:00 Only Unassigned, ROSA MARIA 350.1.13.10 ity of [place] [facility] 4.2.7.2.686 Stephan as [id number] [address] 2022-12-16 2022-12-17 Outpatient R JANUSZ [facility] [id number] Univers 16:00:00 07:40:48 SENDIL ity of [facility] 2022-12-16 2022-12-17 Office [facility] 1.2.840.114 [id number] Univers 16:00:00 07:40:48 Visit Desiree KAN 350.1.13.10 ity of [place] 4.2.7.2.[place] [id number] [address] 2022-12-17 2022-12-17 Refill [facility] 1.2.840.114 [id number] Univers 00:00:00 00:00:00 Sendmindy KAN 350.1.13.10 ity of [place].2.7.2.[place] [id number] [address] 2022-12-15 2022-12-15 Telephone [facility] 1.2.059.677 [id number] Univers 00:00:00 00:00:00 [facility] 350.1.13.10 ity of [place] 4.2.7.2.686 Stephan as SAMUEL?BLEA [id number] [address] MEDICAL OFFICE [facility] 2022-12-15 2022-12-15 Telephone [facility] [id number] Univers 00:00:00 00:00:00 [facility] 350.1.13.10 ity of [place] 4.2.7.2.686 Stephan as SAMUEL?BLEA [id number] [address] OFFICE [facility] 2022-12-03 2022-12-03 Pharmacy Clerk Lab, Tayo [facility] 1.2.840.1 14 [id number] Univers 12:00:00 12:26:39 Visit Suman [facility] 350.1.13.10 ity of [place] 4.2.7.2.686 Stephan as SAMUEL?BLEA [id number] [facility] BEBA 353 [facility] OFFICE [facility] 2022-12-03 2022-12-03 Outpatient R SUMAN CINTHYA [facility] [id number] Univers 11:00:00 12:00:41 CINTHYA DUARTE eva [facility] 2022-12-03 2022-12-03 Office [facility] 1.2.840.114 [id number] Univers 11:00:00 12:00:41 Visit [facility] 350.1.13.10 ity of [place] 4.2.7.2.686 Stephan as SAMUEL?BLEA [id number] [address] OFFICE [facility] 2022-12-03 2022-12-03 Patient Bi [facility] 1.2.840.114 [id number] Univers 00:00:00 00:00:00 Outreach Radha Mojica [facility] 350.1.13.10 i ty of [place] 4.2.7.2.686 Stephan as SAMUEL?BLEA [id number] [address] OFFICE [facility] 2022-11-26 2022-11-26 Telephone Janusz [facility] 1.2.163.266 [id number] Univers 00:00:00 00:00:00 Desiree KAN 350.1.13.10 [facility] 4.2.[place] [id number] [facility] 059 [facility] 2022-11-25 2022-11-25 Outpatient R JANUSZ [facility] [id number] Univers 10:00:00 15:01:49 SENDIL iteva [facility] 2022-11-25 2022-11-25 Office [facility] 1.2.840.114 [id number] Univers 10:00:00 15:01:49 Visit Desiree KAN 350.1.13.10 ity of [place].2.[place] [id number] [address] 2022-11-25 2022-11-25 Pharmacy Clerk 2, Adc Lab [facility] 1.2.840.114 [id number] [facility] 10:30:00 10:45:00 Visit Desiree Boudreaux 350.1.13. 10 ity of [place] 4.2.[place].2.[place] [id number] [facility] 353 [facility] 2022-11-13 2022-11-13 Refill [facility] 1.2.840.114 [id number] Univers 00:00:00 00:00:00 Cinthya HEALTH 350.1.13.10 ity of [place] 4.2.7.2.686 Stephan as SAMUEL?BLEA [id number] [facility] [address] [facility] 2022-11-12 2022-11-12 Refjuan [facility]arteC[facility] 1.2.840.114 [id number] Univers 00:00:00 00:00:00 Cinthya HEALTH 350.1.13.10 ity [facility] 4.2.7.2.686 Stephan as SAMUEL?BLEA [id number] [address] 2022-11-10 2022-11-10 Refjuan [facility] 1.2.840.114 [id number] Univers 00:00:00 00:00:00 Jazminemindy JacintoIsidroLewisIsidro SHANN[place] 350.1.13.10 ity [facility] 4.2.7.2.686 [place] [phone] [facility] [address] [facility] 2022-10-27 2022-10-27 Orders Doctor ROSANNA [id number] [employer] 00:00:00 00:00:00 Only Unassigned, ROSA MARIA 350.1.13.10 ity of [facility] 4.2.7.2.686 Stephan as [phone] [address] 2022-10-01 2022-10-01 Telephone FabienCIBOLA [facility] 1.2.921.220 [id number] Univers 00:00:00 00:00:00 Jing HEALTH 350.1.13.10 it y of [place] 4.2.7.2.686 Stephan as SAMUEL?BLEA [phone] [address] OFFICE [facility] 2022-09-25 2022-09-25 Orders Doctor ROSANNA 1.2.840.114 [id number] Univers 00:00:00 00:00:00 Only Unassigned, ROSA MARIA 350.1.13.10 ity of [place] [facility] 4.2.7.2.686 Stephan as [id number] [address] 2022-09-15 2022-09-15 Telephone [facility] 1.2.247.274 [id number] Univers 00:00:00 00:00:00 Cinthya HEALTH 350.1.13.10 ity of [place] 4.2.7.2.686 Stpehan as SAMUEL?BLEA [id number] [address] OFFICE [facility] 2022-09-11 2022-09-11 Telephone [facility] 1.2.071.606 [id number] Univers 00:00:00 00:00:00 Cinthya HEALTH 350.1.13.10 ity of [facility] 4.2.7.2.686 Stephan as SAMUEL?BLEA [id number] [address] OFFICE [facility] 2022-09-08 2022-09-08 Outpatient R CINTHYA DUARTE [facility] [id number] Univers 10:00:00 10:15:02 CINTHYA DUARTE iteva [facility] 2022-09-08 2022-09-08 Office [facility] 1.2.840.114 [id number] Univers 10:00:00 10:15:02 Visit [facility] 350.1.13.10 ity of [place] 4.2.7.2.686 Stephan as SAMUEL?BLEA [id number] Ar dical KNEY 044 [facility] OFFICE [facility] 2022-08-28 2022-08-28 [facility] 1.2.840.114 [id number] Univers 09:02:13 23:59:00 Encounter Dominic schilling 350.1.13.10 ity [facility] [place] [id number] [facility] [address] [place] 2022-08-28 2022-08-28 Outpatient R [facility] [id number] Univers 09:02:12 23:59:00 DOMINIC Schilling o f [facility] 2022-08-27 2022-08-27 [facility] 1.2.840.114 [id number] Univers 00:00:00 00:00:00 Desiree KAN 350.1.13.10 ity [facility] [place].7.[place] [id number] Ar dictn NAL 059 [facility] 2022-08-11 2022-08-11 Damari [facility] 1.2.243.056 [id number] Univers 00:00:00 00:00:00 Desiree KAN 350.1.13.10 ity [facility] [place] [id number] Ar dical NAL 059 [facility] 2022-08-11 2022-08-11 Orders Doctor MARTE 1.2.840.114 [id number] Univers 00:00:00 00:00:00 Only Unassigned, ROSA MARIA 350.1.13.10 ity of [place] [facility] 4.2.7.2.686 Stephan as [phone] [address] 2022-08-04 2022-08-04 Orders Doctor ROSANNA 1.2.840.114 [id number] Univers 00:00:00 00:00:00 Only Unassigned, ROSA MARIA 350.1.13.10 ity of [place] [facility] 4.2.7.2.686 Stephan as [phone] [address] 2022-07-06 2022-07-06 [facility] 1.2.840.114 [id number] Univers 00:00:00 00:00:00 Desiree KAN 350.1.13.10 ity of [place].2.[place] [id number] [facility] NAL 059 [facility] 2022-07-06 2022-07-06 [facility] 1.2.840.114 [id number] Univers 00:00:00 00:00:00 Alejandra KAN 350.1.13.10 i ty [facility] [place].2.7.2.[place] [phone] Ar dictn NAL 098 [facility] 2022-07-03 2022-07-03 Outpatient R [facility] [id number] Univers 10:30:00 10:53:07 [facility] 2022-07-03 2022-07-03 Office [facility] 1.2.840.114 [id number] Univers 10:30:00 10:53:07 Visit Alejandra KAN 350.1.13.10 i ty of [place].2.7.2.[place] [id number] [address] 2022-07-03 2022-07-03 Outpatient R [facility] [id number] Univers 10:30:00 10:30:00 ALEJANDRA grossman [facility] 2022-07-03 2022-07-03 Outpatient R [facility] [id number] Univers 10:30:00 10:30:00 [facility] 2022-07-03 2022-07-03 Outpatient [facility] [id number] Univers 10:30:00 10:30:00 ALEJANDRA iteva [facility] 2022-07-03 2022-07-03 Outpatient R TEX [facility] [id number] Univers 10:30:00 10:30:00 [facility] 2022-07-03 2022-07-03 Outpatient [facility]itia [facility] [id number] Univers 10:30:00 10:30:00 [facility] 2022-07-03 2022-07-03 Orders Doctor ROSANNA 1.2.840.114 [id number] Univers 00:00:00 00:00:00 Only Unassigned, ROSA MARIA 350.1.13.10 [facility] 4.2.7.2.686 Stephan as [phone] [address] 2022-07-03 2022-07-03 Aron [facility] 1.2.840.114 [id number] Univers 00:00:00 00:00:00 Sendmindy [facility] 350.1.13.10 ity of [place].2.7.2.[place] [phone] Ar dical NAL 059 [facility] 2022-06-26 2022-06-26 Telephone [facility] 1.2.738.609 [id number] Univers 00:00:00 00:00:00 [facility] 350.1.13.10 ity of [place] 4.2.7.2.686 Stephan as SAMUEL?BLEA [id number] Ar dical KNEY 044 [facility] OFFICE [facility] 2022-06-24 2022-06-24 Refjuan [facility]arteC[facility] 1.2.840.114 [id number] Univers 00:00:00 00:00:00 Cinthya HEALTH 350.1.13.10 ity of [place] 4.2.7.2.686 Stephan as SAMUEL?BLEA [id number] Ar dical EY 044 [facility] OFFICE [facility] 2022-06-19 2022-06-19 Telephone [facility] 1.2.502.155 [id number] Univers 00:00:00 00:00:00 [facility] 350.1.13.10 ity of [place] 4.2.7.2.686 Stephan as SAMUEL?BLEA [id number] [facility] 044 [facility] OFFICE [facility] 2022-06-08 2022-06-08 Outpatient R [facility] [id number] Univers 10:20:00 11:01:58 [facility] 2022-06-08 2022-06-08 Office [facility] 1.2.840.114 [id number] Univers 10:20:00 11:01:58 Visit [facility] 350.1.13.10 ity of [place] 4.2.7.2.686 Stephan as SAMUEL?BLEA [phone] [address] OFFICE [facility] 2022-05-27 2022-05-27 Outpatient R [facility] [id number] Univers 09:30:00 10:01:00 SENDIL [facility] 2022-05-27 2022-05-27 Office [facility] 1.2.840.114 [id number] Univers 09:30:00 10:01:00 Visit Desiree OpheliaIsidroLewisIsidro [facility] 350.1.13.10 ity [facility] [place].2.7.2.[place] [phone] [facility] 059 [facility] 2022-05-25 2022-05-25 Outpatient R [facility] [id number] Univers 08:30:00 10:04:00 [facility] 2022-05-25 2022-05-25 Pharmacy Clerk Lab, Ang - Db [facility] 1.2.840.1 14 [id number] Univers 08:30:00 10:04:00 [facility] 350.1.13.10 ity of [place] 4.2.7.2.686 Stephan as SAMUEL?BLEA [id number] [facility] 353 [facility] OFFICE [facility] 2022-05-25 2022-05-25 Outpatient R [facility] [id number] Univers 09:00:00 09:00:00 ity of [facility] 2022-05-13 2022-05-13 Orders Doctor ROSANNA 1.2.840.114 [id number] Univers 00:00:00 00:00:00 Only Unassigned, ROSA MARIA 350.1.13.10 ity of [place] [facility] 4.2.7.2.686 Stephan as [phone] [facility] [address] [place] 2022-04-06 2022-04-06 Outpatient R [facility] [id number] Univers 09:20:00 09:45:49 [facility]INTH[facility] 2022-04-06 2022-04-06 Office [facility] 1.2.840.114 [id number] Univers 09:20:00 09:45:49 Visit Cinthya [facility] 350.1.13.10 ity [facility] 4.2.7.2.686 Stephan as SAMUEL?BLEA [phone] Ar dicmarcelino YODEREY [address] [place] MEDICAL OFFICE [facility] 2022-04-06 2022-04-06 Outpatient R [facility] [id number] Univers 09:30:00 09:30:00 JING ity [facility] 2022-03-05 2022-03-05 Outpatient R [facility] [id number] Univers 08:13:09 23:59:00 CINTHYA [facility] 2022-03-05 2022-03-05 [facility] 1.2.840.114 [id number] Univers 08:13:09 23:59:00 Encounter Cinthya KAN 350.1.13.10 ity [facility] [place].2.7.2.686 [place] [id number] [facility] [address] [place] 2022-02-24 2022-02-24 Aron [facility] 1.2.840.114 [id number] Univers 00:00:00 00:00:00 Desiree KAN 350.1.13.10 ity of [place] 4.2.7.2.686 [place] [facility] [id number] Ar dicmarcelino NAL 059 [facility] 2022-02-24 2022-02-24 Telephone [facility] 1.2.437.736 [id number] Univers 00:00:00 00:00:00 [facility] 350.1.13.10 ity of [place] 4.2.7.2.686 Stephan as SAMUEL?BLEA [id number] [facility] 044 [facility] OFFICE [facility] 2022-01-26 2022-01-26 Pharmacy Clerk Lab, Ang - Db [facility] 1.2.840.1 14 [id number] Univers 11:30:00 11:45:00 [facility] 350.1.13.10 ity of [place] 4.2.7.2.686 Stephan as SAMUEL?BLEA [id number] [facility] [address] [facility] 2022-01-26 2022-01-26 Outpatient R [facility] [id number] Univers 10:40:00 11:24:50 [facility] 2022-01-26 2022-01-26 Office [facility] 1.2.840.114 [id number] Univers 10:40:00 11:24:50 Visit [facility] 350.1.13.10 ity of [place] 4.2.7.2.686 Stephan as SAMUEL?BLEA [id number] [address] 2022-01-26 2022-01-26 Outpatient R [facility] [id number] Univers 10:40:00 10:40:00 [facility] 2022-01-19 2022-01-19 Outpatient [facility] [id number] Univers 09:00:00 09:50:21 [facility] 2022-01-19 2022-01-19 Office [facility] 1.2.840.114 [id number] Univers 09:00:00 09:50:21 Visit Alejandra [place] 350.1.13.10 i ty of [place].2.7.2.[place] [id number] [facility] 098 [facility] 2022-01-14 2022-01-14 Aron RamirezCIBOLA [facility] 1.2.840.114 [id number] Univers 00:00:00 00:00:00 Wondiful A HEALTH 350.1.13.10 ity of [place] 4.2.7.2.686 Stephan as SAMUEL?BLEA [phone] Ar erendira PRUITT 044 [facility] OFFICE [facility] 2022-01-12 2022-01-12 Telephone [facility] 1.2.353.192 [id number] Univers 00:00:00 00:00:00 Sendil [facility] [place] 350.1.13.10 ity of [facility] 4.2.7.2.[place] [id number] [facility] NAL 059 [facility] 2022-01-08 2022-01-08 Refill [facility] 1.2.840.114 [id number] 25 [facility] 00:00:00 00:00:00 Sendil [facility] [place] 350.1.13.10 ity of [facility] 4.2.7.2.[place] [id number] [address] 2022-01-06 2022-01-06 Pharmacy Clerk Lab, Ang - Db [facility] 1.2.840.1 14 [id number] Univers 08:45:00 09:00:00 Visit Jing Conn 350.1.13.10 ity of [facility] 4.2.7.2.686 Stephan as SAMUEL?BLEA [phone] Ar erendira PRUITT [address] [facility] 2022-01-06 2022-01-06 Outpatient R FABIEN [facility] [id number] Univers 08:45:00 08:42:53 JING iteva [facility] 2021-12-22 2021-12-22 Outpatient [facility] [id number] Univers 09:00:00 09:39:28 ALEJANDRA ngoc [facility] 2021-12-22 2021-12-22 Office [facility] 1.2.840.114 [id number] Univers 09:00:00 09:39:28 Visit Alejandra KAN 350.1.13.10 i ty of [facility] 4.2.7.2.[place] [id number] Ar dical NAL [address] [place] [address] 2021-12-22 2021-12-22 Outpatient R TEX [facility] [id number] Univers 09:00:00 09:39:28 ALEJANDRA grossman [facility] 2021-12-16 2021-12-16 Outpatient R JANUSZ [facility] [id number] Univers 08:00:00 08:06:31 SENDMINDY bernardoeva [facility] 2021-12-16 2021-12-16 Pharmacy Clerk Lab, Ang - [facility] 1.2.840.1 14 [id number] Univers 08:00:00 08:06:31 Visit Desiree Boudreaux [facility] 350.1.13.1 0 ity of [place] 4.2.7.2.686 Stephan as SAMUEL?BLEA [id number] [facility] 353 [facility] OFFICE [facility] 2021-12-16 2021-12-16 Telephone [facility] 1.2.840.114 [id number] Univers 00:00:00 00:00:00 Alejandra [place] 350.1.13.10 i ty of [place] 4.2.7.2.[place] [id number] [address] 2021-12-15 2021-12-15 Office [facility] 1.2.840.114 [id number] Univers 09:30:00 09:48:51 Visit [facility] 350.1.13.10 it y of [place] 4.2.7.2.686 Stephan as SAMUEL?BLEA [id number] Ar erendira YODER 044 [facility] OFFICE [facility] 2021-12-15 2021-12-15 Outpatient R FABIEN [facility] [id number] Univers 09:30:00 09:48:51 JING iteva [facility] 2021-12-15 2021-12-15 Outpatient R FABIEN [facility] [id number] Univers 09:30:00 09:30:00 JING bernardoeva [facility] 2021-12-15 2021-12-15 Telephone [facility] 1.2.698.278 [id number] Univers 00:00:00 00:00:00 Jing HEALTH 350.1.13.10 it y of [place] 4.2.7.2.686 Stephan as SAMUEL?BLEA [id number] Ar erendira PRUITT 044 [facility] OFFICE [facility] 2021-12-09 2021-12-09 Orders Doctor ROSANNA 1.2.840.114 [id number] Univers 00:00:00 00:00:00 Only Unassigned, ROSA MARIA 350.1.13.10 ity of [place] [facility] 4.2.7.2.686 Stephan as [phone] [address] 2021-12-04 2021-12-04 Telephone [facility] 1.2.974.478 [id number] Univers 00:00:00 00:00:00 Dany S HEALTH 350.1.13.10 it y of [facility] 4.2.7.2.686 Stephan as SAMUEL?BLEA [id number] Ar erendira PRUITT 198 [facility] OFFICE [facility] 2021-12-01 2021-12-01 Telephone Janusz [facility] 1.2.361.872 [id number] Univers 00:00:00 00:00:00 Desiree KAN 350.1.13.10 ity of [place].2.[place] [id number] [place] 381539 [facility] 2021-11-27 2021-11-27 Telephone Janusz [facility] 1.2.211.314 [id number] Univers 00:00:00 00:00:00 Desiree KAN 350.1.13.10 ity of [place].7.2.[place] [id number] [address] 2021-11-24 2021-11-24 Outpatient R JANUSZ [facility] [id number] Univers 09:00:00 09:15:07 SENDIL ity of [facility] 2021-11-24 2021-11-24 Office Janusz [facility] 1.2.840.114 [id number] Univers 09:00:00 09:15:07 Visit Desiree KAN 350.1.13.10 ity of [facility] 4.2.7.2.[place] [id number] Ar dical NAL 059 [facility] 2021-11-24 2021-11-24 Outpatient R JANUSZ [facility] [id number] Univers 09:00:00 09:00:00 SENDIL ity [facility] 2021-11-24 2021-11-24 Telephone [facility] 1.2.929.282 [id number] Univers 00:00:00 00:00:00 Sendil Ector KAN 350.1.13.10 ity of [facility] 4.2.7.2.[place] [id number] Ar dical NAL 059 [facility] 2021-11-21 2021-11-21 Telephone [facility] 1.2.615.440 [id number] Univers 00:00:00 00:00:00 Sendmindy KAN 350.1.13.10 ity of [place] 4.2.7.2.[place] [id number] Ar dical NAL 059 [facility] 2021-11-18 2021-11-18 Outpatient R JANUSZ [facility] [id number] Univers 08:36:17 23:59:00 SENDIL ity [facility] 2021-11-18 2021-11-18 Pharmacy Clerk 2, Adc Lab [facility] 1.2.840.114 [id number] Univers 10:00:00 10:15:00 Visit Desiree Boudreaux 350.1.13. 10 ity of [facility] 4.2.7.2.686 [place] [phone] Ar dical NAL 353 [facility] 2021-11-18 2021-11-18 Outpatient R [facility] [id number] Univers 10:00:00 10:00:00 ity of [facility] 2021-11-18 2021-11-18 Outpatient R JANUSZ [facility] [id number] Univers 09:00:00 09:00:00 SENDIL ity [facility] 2021-11-18 2021-11-18 Outpatient R JANUSZ [facility] [id number] Univers 08:36:17 08:36:17 SENDIL ity of [facility] 2021-11-13 2021-11-13 Telephone Fabien [facility] 1.2.104.997 [id number] Univers 00:00:00 00:00:00 Jing HEALTH 350.1.13.10 it y of [facility] 4.2.7.2.686 Stephan as SAMUEL?BLEA [phone] Ar dorothymarcelino SONAL [address] [place] MEDICAL OFFICE BUILDING 2021-11-10 2021-11-10 Orders Doctor ROSANNA 1.2.840.114 [id number] Univers 00:00:00 00:00:00 Only Unassigned, ROSA MARIA 350.1.13.10 ity of [place] [facility] 4.2.7.2.686 Stephan as [phone] [facility] [address] [place] 2021-10-23 2021-10-23 Office [facility] 1.2.006.180 [id number] Univers 10:00:00 10:00:00 Visit Krystina Mojica [facility] 350.1.13.10 it y of [place] 4.2.7.2.686 Stephan as SAMUEL?BLEA [phone] Ar dorothymarcelino SONAL [address] [place] MEDICAL OFFICE [facility] 2021-10-23 2021-10-23 Outpatient [facility] [id number] Univers 10:00:00 09:53:14 KRYSTINA eva [facility] 2021-10-15 2021-10-15 Outpatient R [facility] [id number] Univers 08:22:20 23:59:00 KRYSTINA ity [facility] 2021-10-15 2021-10-15 Hospital [facility] 1.2.840.114 [id number] Univers 08:22:20 23:59:00 Encounter Krystina KAN 350.1.13.10 ity of [place].2.686 [place] [id number] [facility] [address] [place] 2021-09-25 2021-09-25 Telephone [facility] 1.2.840.114 [id number] Univers 00:00:00 00:00:00 Krystina L HEALTH 350.1.13.10 it y of [place] 4.2.7.2.686 Stephan as SAMUEL?BLEA [phone] Ar erendira PRUITT [address] [place] MEDICAL OFFICE [facility] 2021-09-19 2021-09-19 Office [facility] 1.2.047.427 [id number] Univers 09:45:00 09:45:38 Visit Krystina Mojica HEALTH 350.1.13.10 it y of [facility] 4.2.7.2.686 Stephan as SAMUEL?BLEA [id number] Ar erendira PRUITT [address] [place] MEDICAL OFFICE [facility] 2021-09-19 2021-09-19 Outpatient R [facility] [id number] Univers 09:45:00 09:45:38 KRYSTINA grossman [facility] 2021-09-19 2021-09-19 Outpatient R [facility] [id number] Univers 09:45:00 09:45:00 KRYSTINALEVON grossman [facility] 2021-09-18 2021-09-18 Telephone [facility] 1.2.625.608 [id number] Univers 00:00:00 00:00:00 Dany S HEALTH 350.1.13.10 it y of [place] 4.2.7.2.686 Stephan as SAMUEL?BLEA [id number] Ar erendira PRUITT 198 [facility] OFFICE [facility] 2021-09-18 2021-09-18 Refjuan Conn [facility] 1.2.840.114 [id number] Univers 00:00:00 00:00:00 Jing HEALTH 350.1.13.10 it y of [place] 4.2.7.2.686 Stephan as SAMUEL?BLEA [id number] Ar erendira PRUITT [address] [place] MEDICAL OFFICE [facility] 2021-09-14 2021-09-14 Orders Doctor MARTE 1.2.840.114 [id number] Univers 00:00:00 00:00:00 Only Unassigned, ROSA MARIA 350.1.13.10 ity of [place] [facility] 4.2.7.2.686 Stephan as [phone] [address] 2021-09-01 2021-09-01 Refjuan Boudreaux [facility] 1.2.840.114 [id number] Univers 00:00:00 00:00:00 Sendmindy KAN 350.1.13.10 ity of [facility] 4.2.7.2.[place] [id number] Me dical NAL 059 [facility] 2021-08-27 2021-08-27 Telephone Toi [facility] 1.2.987.075 [id number] Univers 00:00:00 00:00:00 Dany S HEALTH 350.1.13.10 it y of [facility] 4.2.7.2.686 Stephan as SAMUEL?BLEA [id number] Me dical BEBAEY 198 [facility] OFFICE [facility] 2021-08-26 2021-08-26 Telephone Fabien [facility] 1.2.436.765 [id number] Univers 00:00:00 00:00:00 Jing HEALTH 350.1.13.10 it y of [facility] 4.2.7.2.686 Stephan as SAMUEL?BLEA [phone] Ar dicmarcelino BEBAVALENTINO 044 [facility] OFFICE [facility] 2021-08-26 2021-08-26 Orders Doctor ROSANNA 1.2.840.114 [id number] Univers 00:00:00 00:00:00 Only Unassigned, ROSA MARIA 350.1.13.10 ity of [place] [facility] 4.2.7.2.686 Stephan as [phone] [address] 2021-08-21 2021-08-21 Outpatient R ILEANA [facility] [id number] Univers 11:00:00 11:30:52 KRYSTINA ity of [facility] 2021-08-21 2021-08-21 Pharmacy Clerk Lab, Ang - Db [facility] 1.2.840.1 [id number] Univers 11:15:00 11:30:00 Visit Jing Conn [facility] 350.1.13.10 ity of [facility] 4.2.7.2.686 Stephan as SAMUEL?BLEA [phone] Me dical BEBAVALENTINO 353 [facility] OFFICE [facility] 2021-08-21 2021-08-21 Office Dany Cm [facility] 1.2.840.114 [id number] Univers 11:00:00 11:15:00 Visit Krystina Tejeda [facility] 350.1.13.10 ity of [facility] 4.2.7.2.686 Stephan as SAMUEL?BLEA [phone] Ar erendira PRUITT 198 [facility] OFFICE [facility] 2021-08-21 2021-08-21 [facility] [id number] Univers 11:00:00 11:00:00 KRYSTINA iteva [facility] 2021-08-21 2021-08-21 [facility] 1.2.840.114 [id number] Univers 10:30:00 11:00:00 Visit [facility] 350.1.13.10 it y of [place] 4.2.7.2.686 Stephan as SAMUEL?BLEA [phone] Ar erendira [facility] 044 [facility] OFFICE [facility] 2021-08-21 2021-08-21 Outpatient [facility] [id number] Univers 10:30:00 10:30:00 JING iteva [facility] 2021-08-09 2021-08-09 [facility] 1.2.840.114 [id number] Univers 00:00:00 00:00:00 Desiree KAN 350.1.13.10 ity of [place] [phone] [place] [id number] [facility] 2021-07-30 2021-07-30 [facility] 1.2.840.114 [id number] Univers 00:00:00 00:00:00 Desiree KAN 350.1.13.10 [facility] [place] [phone] [address] 2021-07-28 2021-07-28 Emergency [facility] 1.2.840.114 [id number] Univers 10:43:00 12:23:00 Julia KAN 350.1.13.10 it[facility] [place] [phone] [facility] [address] [place] [address] 2021-07-28 2021-07-28 Office [facility] 1.2.840.114 [id number] Univers 09:30:00 10:01:41 Visit Sendmindy KAN 350.1.13.10 ity of [place].2.7.2.[place] [phone] [facility] 059 [facility] 2021-07-28 2021-07-28 [facility] [id number] Univers 09:30:00 10:01:41 SENDIL ity [facility] 2021-07-28 2021-07-28 [facility] ERT [id number] Univers 09:30:00 10:01:41 SENDIL ity [facility] 2021-07-28 2021-07-28 [facility] [id number] Univers 09:30:00 10:01:41 SENDIL ity [facility] 2021-07-28 2021-07-28 Office [facility] 1.2.840.114 [id number] Univers 09:30:00 10:01:41 Visit Sendmindy KAN 350.1.13.10 ity [facility] [place]2.7.2.[place] [phone] [facility] 059 [facility] 2021-07-28 2021-07-28 Outpatient R JANUSZ [facility] [id number] Univers 09:30:00 09:30:00 SENDIL ity [facility] 2021-07-28 2021-07-28 [facility] [id number] Univers 09:30:00 09:30:00 SENDIL ity [facility] 2021-07-24 2021-07-24 [facility] 1.2.840.114 [id number] Univers 00:00:00 00:00:00 Wonscionhealth A [facility] 350.1.13.10 ity of [place] 4.2.7.2.686 Stephan as PROFESSIO [phone] [facility] [address] [place] OFFICE BUILDING ONE 2021-07-23 2021-07-23 Outpatient R JANUSZ [facility] [id number] Univers 10:00:00 10:00:00 [facility] 2021-07-04 2021-07-04 Outpatient R TEX [facility] [id number] Univers 09:30:00 10:13:30 ALEJANDRA [facility] 2021-07-02 2021-07-02 Office Pamela [facility] 1.2.858.324 [id number] Univers 09:00:00 09:28:07 Visit Michael KAN 350.1.13.10 ity of [place].2.7.2.[place] [phone] Ar dic[address] 2021-07-02 2021-07-02 Outpatient R CORWIN SANDHUARYunior [facility] [id number] Univers 09:00:00 09:28:07 CORWIN SANDHUARYunior [facility] 2021-07-02 2021-07-02 Outpatient R PAMELA [facility] [id number] Univers 09:00:00 09:00:00 PAMELA [facility] 2021-07-02 2021-07-02 Orders Doctor MARTE 1.2.840.114 [id number] Univers 00:00:00 00:00:00 Only Unassigned, ROSA MARIA 350.1.13.10 ity of [place] [facility] 4.2.7.2.686 Stephan as [phone] [address] 2021-06-20 2021-06-20 Orders Doctor ROSANNA 1.2.840.114 [id number] Univers 00:00:00 00:00:00 Only Unassigned, ROSA MARIA 350.1.13.10 ity of [place] [facility] 4.2.7.2.686 Stephan as [phone] [address] 2021-06-14 2021-06-14 Outpatient R CORWIN SANDHUARYunior [facility] [id number] Univers 19:30:00 19:30:00 PAMELA [facility] 2021-06-12 2021-06-12 Outpatient R [facility] [id number] Univers 09:45:00 09:45:00 ity of [facility] 2021-06-07 2021-06-07 Pharmacy Clerk 1, [facility] Sleep [facility] Bed [facility] 1. 2.840.114 [id number] Univers 19:30:00 22:00:00 Visit Sonidodanielty Michael Calvo [place] 350.1.13. 10 ity of [place] 4.2.7.2.686 [facility] [phone] [facility] [address] 2021-06-07 2021-06-07 Outpatient R SONIDODANIELTY STRAHIL [facility] [id number] Univers 19:30:00 19:30:00 ATANASOVCORWINHIL ity [facility] 2021-06-07 2021-06-07 Orders Doctor ROSANNA 1.2.840.114 [id number] Univers 00:00:00 00:00:00 Only Unassigned, ROSA MARIA 350.1.13.10 ity of [facility] 4.2.7.[address] [place] [address] [phone] [facility] [address] 2021-05-28 2021-05-28 Outpatient R PAMELA STRAHIL [facility] [id number] Univers 09:40:00 09:40:00 SONIDONASOV, STRAHIL ity [facility] 2021-05-12 2021-05-12 Outpatient R ILEANA [facility] [id number] Univers 09:20:00 09:20:00 KRYSTINA ity [facility] 2021-05-07 2021-05-07 Outpatient R PAMELA STRAHIL [facility] [id number] Univers 19:30:00 19:30:00 SOINDONASOV, STRAHIL ity [facility] 2021-05-05 2021-05-05 Laboratory Only, Adc Test [facility] 1.2.840. 114 [id number] Univers 09:45:00 10:00:00 Only Michael Sandhu [place] 350.1.13. 10 ity of [facility] 4.2.7.2.686 [facility] [phone] [facility] [address] 2021-05-05 2021-05-05 Outpatient R MICHAEL SANDHU [facility] [id number] Univers 09:45:00 09:45:00 MICHAEL SANDHU [facility] 2021-05-05 2021-05-05 Orders Doctor ROSANNA 1.2.840.114 [id number] Univers 00:00:00 00:00:00 Only Unassigned, ROSA MARIA 350.1.13.10 ity of [place] [facility] 4.2.7.2.686 Stephan as [phone] [facility] [address] [place] 2021-04-29 2021-04-29 Orders Doctor ROSANNA 1.2.840.114 [id number] Univers 00:00:00 00:00:00 Only Unassigned, ROSA MARIA 350.1.13.10 ity of [place] [facility] 4.2.7.2.686 Stephan as [phone] [facility] [address] [place] 2021-04-24 2021-04-24 Telephone [facility] 1.2.392.117 [id number] Univers 00:00:00 00:00:00 Desiree KAN 350.1.13.10 ity [facility] 4.2.7.2.686 [place] [facility] [id number] Ar dictn MAKSIM [address] [facility] 2021-04-22 2021-04-22 Office Pamela [facility] 1.2.764.365 [id number] Univers 10:00:00 10:30:00 Visit Michael Calvo MULTISPEC 350.1.13.10 ity of [place] 4.2.7.2.686 [place] [id number] [facility] AND ARASELI [address] [facility] 2021-04-22 2021-04-22 Outpatient R CORWIN SANDHUARYunior [facility] [id number] Univers 10:00:00 10:13:07 MICHAEL SADNHU [facility] 2021-04-22 2021-04-22 Outpatient R PAMELA [facility] [id number] Univers 10:00:00 10:00:00 MICHAEL SANDHU [facility] 2021-04-21 2021-04-21 Outpatient R ILEANA [facility] [id number] Univers 13:40:00 15:17:05 KRYSTINA grossman [facility] 2021-04-21 2021-04-21 Ancillary [place] Hill [facility] 1.2.840. 114 [id number] Univers 13:40:00 15:17:05 Visit Krystina Tejeda LUCIUS 350.1.13.10 ity of [place] 4.2.7.2.[place] [phone] Me dical NAL 179 [facility] 2021-04-21 2021-04-21 Outpatient R ILEANA [facility] [id number] Univers 13:40:00 15:17:05 KRYSTINA [facility] 2021-04-16 2021-04-16 Pharmacy Clerk Awilda, [facility] Lab Main [facility] 1.2.8 40.114 [id number] Univers 09:15:00 09:30:00 Visit Desiree Bouderaux 350.1.13. 10 ity of [facility] 4.2.7.2.686 [place] [phone] Me dical NAL 353 [facility] 2021-04-16 2021-04-16 Outpatient [facility] [id number] Univers 09:15:00 09:15:00 SENDIL [facility] 2021-04-16 2021-04-16 Outpatient [facility] [id number] Univers 09:15:00 09:15:00 SENDIL [facility] 2021-04-16 2021-04-16 Refill [facility] 1.2.840.114 [id number] Univers 00:00:00 00:00:00 Desiree KAN 350.1.13.10 ity of [place].2.7.2.686 [place] [phone] Me dical NAL 059 [facility] 2021-04-11 2021-04-11 Telephone Tex [facility] 1.2.840.114 [id number] Univers 00:00:00 00:00:00 Alejandra KAN 350.1.13.10 i ty of [place] 4.2.7.2.[place] [id number] Ar dical NAL 134 [facility] 2021-04-08 2021-04-08 Nurse Nurse, [facility] 1.2.840.114 [id number] Univers 09:33:47 09:34:03 Visit Eran Coffman 350.1.13 .10 ity of [place].2.7.2.[place] [phone] Ar dical NAL 044 [facility] 2021-04-08 2021-04-08 Outpatient R AUGUSTUS [facility] [id number] Univers 10:30:00 09:10:27 ERAN eva [facility] 2021-04-08 2021-04-08 Outpatient R AUGUSTUS [facility] [id number] Univers 10:30:00 09:10:27 [facility] 2021-04-08 2021-04-08 Imm/Inj Nurse, [facility] Pob Immunization [facility] 1.2.840.114 [id number] Univers 09:10:19 09:10:27 Visit Eran Coffman 350.1.13 .10 ity of [facility] 4.2.7.2.[place] [phone] Ar dical NAL 421 [facility] 2021-04-04 2021-04-04 [facility] [id number] Univers 09:30:00 10:00:49 ALEJANDRA bernardoeva [facility] 2021-04-04 2021-04-04 Outpatient [facility] [id number] Univers 09:30:00 10:00:49 [facility]ANDRA [facility] 2021-04-04 2021-04-04 Office [facility] 1.2.840.114 [id number] Univers 08:59:12 10:00:49 Visit Alejandra KAN 350.1.13.10 i ty of [place] 4.2.7.2.[place] [phone] Ar dical NAL 098 [facility] 2021-04-04 2021-04-04 Outpatient [facility] [id number] Univers 09:30:00 09:30:00 ALEJANDRA ity of [facility] 2021-04-04 2021-04-04 Telephone [facility] 1.2.840.114 [id number] Univers 00:00:00 00:00:00 Alejandra LUCIUS 350.1.13.10 i ty of [facility] 4.2.7.2.686 [place] [phone] Ar dical NAL 098 [facility] 2021-03-24 2021-03-24 Case [facility] 1.2.840.114 [id number] Univers 00:00:00 00:00:00 Management Wondiful A HEALTH 350.1.13.10 ity of [place] 4.2.7.2.686 Stephan as SAMUEL?BLEA [phone] Ar erendira BEBAEY 044 [facility] OFFICE [facility] 2021-03-18 2021-03-18 Outpatient R MICHAEL SANDHU [facility] [id number] Univers 10:00:00 10:00:00 [facility] 2021-03-18 2021-03-18 Pharmacy Clerk Arvin [facility] 1.2 .840.114 [id number] Univers 09:35:15 09:50:15 Visit Michael Sandhu 350.1.13. 10 ity of [facility] 4.2.7.2.[place] [phone] [address] 2021-03-17 2021-03-17 Telephone [facility] 1.2.840.114 [id number] Univers 00:00:00 00:00:00 Alejandra LUCIUS 350.1.13.10 i ty of [facility] 4.2.7.2.686 [place] [phone] Ar dical NAL 134 [facility] 2021-03-12 2021-03-12 Outpatient R [facility] [id number] Univers 10:12:00 12:40:00 DOMINIC Schilling [facility] 2021-03-12 2021-03-12 [facility] 1.2.840.114 [id number] Univers 10:12:00 12:40:00 Encounter e, Maribelletitia KAN 350.1.13.10 ity of [facility] 4.2.7.2.[place] [id number] [facility] [address] 2021-03-12 2021-03-12 Surgery [facility] 1.2.840.114 [id number] Univers 11:44:00 12:23:00 e, Dominic URRUTIATON 350.1.13.10 ity of [facility] 4.2.7.2.[address] [place] [id number] [facility] [address] 2021-03-12 2021-03-12 Orders Doctor ROSANNA 1.2.840.114 [id number] Univers 00:00:00 00:00:00 Only Unassigned, ROSA MARIA 350.1.13.10 ity of [place] [facility] 4.2.7.2.686 Stephan as [phone] [place] [address] [address] 2021-03-11 2021-03-11 Outpatient R [facility] [id number] Univers 10:45:00 10:45:00 E, DOMINIC grossman o f [facility] 2021-03-11 2021-03-11 Outpatient R [facility] [id number] Univers 10:45:00 10:45:00 E, CHETANDALI morris f [facility] 2021-03-11 2021-03-11 Outpatient R [facility] [id number] Univers 10:45:00 10:45:00 E, DOMINIC morris f [facility] 2021-03-10 2021-03-10 Outpatient R NAYLA [facility] [id number] Univers 13:00:00 13:34:06 SHAGGY morris [facility] 2021-03-10 2021-03-10 Office [facility] 1.2.840.114 [id number] Univers 12:28:10 13:34:06 Visit Wonful A HEALTH 350.1.13.10 ity of [facility] 4.2.7.2.686 Stephan as SAMUEL?BLEA [phone] Ar dicmarcelino PRUITT [address] [place] MEDICAL OFFICE [facility] 2021-03-08 2021-03-08 Case [facility] 1.2.840.114 [id number] Univers 00:00:00 00:00:00 Management Wondiful A HEALTH 350.1.13.10 ity of [place] 4.2.7.2.686 Stephan as SAMUEL?BLEA [id number] Ar erendira PRUITT 044 [facility] OFFICE [facility] 2021-03-07 2021-03-07 [facility] 1.2.948.020 [id number] Univers 08:23:09 23:59:00 Encounter Wondiful A [place] 350.1.13.10 ity of [place] 4.2.7.2.686 [place] [id number] [address] 2021-03-07 2021-03-07 [facility] [id number] Univers 00:00:00 23:59:00 WONDIFUL ity o f [facility] 2021-03-07 2021-03-07 Outpatient [facility] [id number] Univers 00:00:00 23:59:00 WONDIFUL ity o f [facility] 2021-03-07 2021-03-07 Pharmacy Clerk Awilda, Arvin Lab Main [facility] 1.2.8 40.114 [id number] Univers 09:21:20 09:36:20 Visit Yaw Ramirezhalivega Earl [place] 350.1.13. 10 ity of [place] 4.2.7.2.686 [facility] [id number] Ar erendira SCHAEFFER 353 [facility] 2021-03-07 2021-03-07 [facility] 1.2.261.772 [id number] Univers 08:22:34 08:22:34 Encounter Wondiful A [place] 350.1.13.10 ity of [place] 4.2.7.2.686 [place] [id number] [address] 2021-03-07 2021-03-07 Outpatient [facility] [id number] Univers 08:22:34 08:22:34 WONDIFUL ity o f [facility] 2021-03-04 2021-03-[address] [facility] 1.2.840.114 [id number] Univers 00:00:00 00:00:00 Wondiful A HEALTH 350.1.13.10 ity of [facility] 4.2.7.2.686 Stephan as SAMUEL?BLEA [phone] Ar dical KNEY [address] [place] MEDICAL OFFICE BUILDING 2021-02-28 2021-02-[address] [facility] 1.2.557.673 [id number] Univers 08:59:37 23:59:00 Encounter Wondiful A [place] 350.1.13.10 ity of [place] 4.2.7.2.686 [place] [id number] [facility] [address] [place] 2021-02-28 2021-02-28 [facility] 1.2.381.483 [id number] Univers 08:57:31 08:58:00 Encounter Wondiful A [place] 350.1.13.10 ity of [place] 4.2.7.2.686 [place] C[place]US [id number] [facility] [address] [place] 2021-02-28 2021-02-28 Outpatient R [facility] [id number] Univers 08:57:31 08:58:00 WONDIFUL ity o f [facility] 2021-02-27 2021-02-27 Orders Doctor ROSANNA 1.2.840.114 [id number] Univers 00:00:00 00:00:00 Only Unassigned, ROSA MARIA 350.1.13.10 ity of [place] [facility] 4.2.7.2.686 Stephan as [phone] [facility] [address] [place] 2021-02-25 2021-02-25 Telephone [facility] 1.2.840.114 [id number] Univers 00:00:00 00:00:00 Alejandra [place] 350.1.13.10 i ty of [place] 4.2.7.2.686 [place] [id number] Ar dical nal [address] [facility] 2021-02-21 2021-02-21 Office [facility] 1.2.840.114 [id number] Univers 09:21:47 12:11:05 Visit Alejandra [place] 350.1.13.10 i ty of [place] 4.2.7.2.686 [place] Profess[place] [phone] [address] 2021-02-21 2021-02-21 Outpatient R TEX [facility] [id number] Univers 10:30:00 10:30:00 ALEJANDRA ity of [facility] 2021-02-21 2021-02-21 Case [facility] 1.2.840.114 [id number] Univers 00:00:00 00:00:00 Management Wondiful A Health 350.1.13.10 ity of [place] 4.2.7.2.686 Stephan as Samuel?Blea [phone] [address] Office [facility] 2021-02-21 2021-02-21 Telephone [facility] 1.2.840.114 [id number] Univers 00:00:00 00:00:00 Alejandra [place] 350.1.13.10 i ty of [place] 4.2.7.2.686 [place] Profess[place] [phone] [address] 2021-02-18 2021-02-18 Pharmacy Clerk Lab, Ang [facility] 1.2.840.1 14 [id number] Univers 10:09:19 10:24:19 Visit Shaggy Ramirez A Health 350.1.13.1 0 ity of [place] 4.2.7.2.686 Stephan as Samuel?Blea [id number] [facility] 353 [facility] Office [facility] 2021-02-18 2021-02-18 Office [facility] 1.2.840.114 [id number] Univers 08:53:27 10:11:05 Visit Wondiful A Health 350.1.13.10 ity of [place] 4.2.7.2.686 Stephan as Samuel?Blea [id number] [address] Office [facility] 2021-02-18 2021-02-18 Outpatient R NAYLA [facility] [id number] Univers 09:30:00 09:30:00 WONDIFUL ity o f [facility] 2021-02-18 2021-02-18 Orders Doctor ROSANNA 1.2.840.114 [id number] Univers 00:00:00 00:00:00 Only Unassigned, ROSA MARIA 350.1.13.10 ity of [place] [facility] 4.2.7.2.686 Stephan as [phone] [address] 2021-02-11 2021-02-11 Refill [facility] 1.2.840.114 [id number] Univers 00:00:00 00:00:00 Desiree Kan 350.1.13.10 ity of [place] 4.2.7.2.686 [place] [id number] Ar dical nal 059 [facility] 2021-02-08 2021-02-08 Refill Nayla [facility] 1.2.840.114 [id number] Univers 00:00:00 00:00:00 Wondiful A HEALTH 350.1.13.10 ity of [place] 4.2.7.2.686 Stephan as PROFESSIO [phone] Ar dical MAKSIM [address] [place] OFFICE BUILDING ONE 2021-01-22 2021-01-22 Pharmacy Clerk 2, Adc Lab [facility] 1.2.840.114 [id number] Univers 09:17:00 09:32:00 Visit Desiree Boudreaux 350.1.13. 10 ity of [place] 4.2.7.2.686 [place] [phone] Ar dical maksim 353 [facility] 2021-01-22 2021-01-22 Office Boudreaux [facility] 1.2.840.114 [id number] Univers 08:46:05 09:10:36 Visit Desiree Kan 350.1.13.10 ity of [place] 4.2.7.2.686 [place] [phone] Ar dical nal 059 [facility] 2021-01-22 2021-01-22 [facility] 1.2.840.114 [id number] Univers 08:46:05 09:10:36 Visit Sendil Ector Kan 350.1.13.10 ity of [place] 4.2.7.2.686 [place] [phone] Ar dical nal 059 [facility] 2021-01-22 2021-01-22 Outpatient R JANUSZ [facility] [id number] Univers 09:00:00 09:00:00 SENDIL ity of [facility] 2020-10-24 2020-10-24 Telephone [facility] 1.2.638.842 [id number] Univers 00:00:00 00:00:00 Sendil Ector Urrutiaton 350.1.13.10 ity of [place] 4.2.7.2.686 [place] [phone] Ar dictn nal 059 [facility] 2020-10-15 2020-10-15 Office [facility] 1.2.840.114 [id number] Univers 10:08:42 10:44:13 Visit Desiree Kan 350.1.13.10 ity of [place] 4.2.7.2.686 [place] [phone] Ar dictn nal 059 [facility] 2020-10-15 2020-10-15 Outpatient R JANUSZ [facility] [id number] Univers 10:30:00 10:30:00 SENDIL ity of [facility] 2020-10-15 2020-10-15 Pharmacy Clerk 2, Adc Lab [facility] 1.2.840.114 [id number] Univers 09:10:30 09:25:30 Visit Shaggy Ramirezton 350.1.13. 10 ity of [place] 4.2.7.2.686 [place] [phone] Ar dical nal 353 [facility] 2020-08-26 2020-08-26 Hospital [facility] 1.2.084.061 [id number] Univers 09:31:24 23:59:00 Encounter Shaggy Earl [place] 350.1.13.10 ity of [place] 4.2.7.2.686 [place] [phone] [facility] [address] [place] 2020-08-26 2020-08-26 Outpatient R NAYLA [facility] [id number] Univers 00:00:00 00:00:00 WONDIFUL ity o f [facility] 2020-08-26 2020-08-26 Orders Doctor ROSANNA 1.2.840.114 [id number] Univers 00:00:00 00:00:00 Only Unassigned, ROSA MARIA 350.1.13.10 [facility] 4.2.7.2.686 Stephan as [phone] [facility] [address] [place] 2020-08-20 2020-08-20 Office [facility] 1.2.840.114 [id number] Univers 08:33:21 10:03:[address] [facility] 350.1.13.10 ity of [place] 4.2.7.2.686 Stephan as Professio [phone] Ar dical nal [address] [place] Office [address] 2020-08-20 2020-08-20 Outpatient R NAYLA [facility] [id number] Univers 08:45:00 08:45:00 WONDIFUL ity o f [facility] 2020-08-15 2020-08-15 Outpatient R JANUSZ [facility] [id number] Univers 10:30:00 10:30:00 SENDIL [facility] 2020-08-15 2020-08-15 Office [facility] 1.2.840.114 [id number] Univers 09:53:17 10:26:09 Visit Desiree Kan 350.1.13.10 ity of [place] 4.2.7.2.686 [place] [phone] Ar dical nal [address] [place] Building 2020-08-01 2020-08-01 Outpatient R MINO [facility] [id number] Univers 16:00:00 16:00:00 ZI ity [facility] 2020-07-11 2020-07-11 Outpatient Letitia HERZOG [facility] [id number] Univers 16:00:00 16:00:00 ZI ity [facility] 2020-04-16 2020-04-16 [facility] 1.2.840.114 [id number] Univers 09:22:43 10:19:03 Visit Desiree Kan [id number] [id number] [phone] Ar dictn nal 9 [facility] 2020-04-16 2020-04-16 Outpatient R [facility] [id number] Univers 10:00:00 10:00:00 SENDIL ity of [facility] 2020-03-14 2020-03-14 Laboratory Pc, Adc Echo Room 1 - [facility] 1 .2.840.114 [id number] Univers 10:12:21 11:41:50 Only Promise Martinez [id number] ity [id number] [phone] [address] 2020-03-14 2020-03-14 Outpatient R [facility] [id number] Univers 11:00:00 11:00:00 ity of [facility] 2020-03-14 2020-03-14 [facility] 1..[id number] Univers 00:00:00 00:00:00 Sendil cEtor Kan [id number] ity [id number] [phone] [address] 2020-03-13 2020-03-13 [facility] 1.2.840.114 [id number] Univers 07:51:43 23:59:00 Encounter Desiree Kan [id number] [id number] [phone] [address] 2020-03-13 2020-03-13 [facility] 1.2.840.114 [id number] Univers 07:51:12 23:59:00 Encounter Desiree Kan [id number] it[place] of [id number] [phone] [address] 2020-03-13 2020-03-13 [id number] Univers 07:00:00 07:00:00 SENDIL ity [facility] 2020-03-12 2020-03-12 [place] [facility] 1.2.840.114 [id number] Univers 08:05:27 23:59:00 Encounter Sendil Ector [place] 350.1.13.10 ity of [place] [phone] [address] 2020-03-12 2020-03-12 [facility] 1.2.840.114 [id number] Univers 08:05:12 23:59:00 Encounter Sendil Ector [place] 350.1.13.10 ity of [place] [phone] [address] 2020-03-12 2020-03-12 [facility] [id number] Univers 09:00:00 09:00:00 [facility]-05 2020-03-05 Office [facility] 1.2.840.114 [id number] Univers 09:35:47 10:14:17 Visit Desiree [place] 350.1.13.10 it[place] of [place] [phone] Ar dical nal 059 [facility] 2020-03-05 2020-03-05 Outpatient [facility] [id number] Univers 09:30:00 09:30:00 SENDIL ity [facility] 2020-03-05 2020-03-05 Orders Doctor ROSANNA 1.2.840.114 [id number] Univers 00:00:00 00:00:00 Only Unassigned, ROSA MARIA 350.1.13.10 ity of [place] [facility] 4.2.7.2.686 Stephan as [phone] [facility] [address] [place] 2020-02-29 2020-02-29 [facility] 1.2.840.114 [id number] Univers 00:00:00 00:00:00 Wondiful [facility] 350.1.13.10 ity of [place] 4.2.7.2.686 Stephan as Professio [phone] Ar erendira Holliday [place] [facility] One 2020-02-27 2020-02-27 Refill Nayla [facility] 1.2.840.114 [id number] Univers 00:00:00 00:00:00 W[facility] 350.1.13.10 ity of [place] 4.2.7.2.686 Stephan as Professio [phone] Ar erendira nal Miya [place] [facility] 2020-02-25 2020-02-25 Case [place] [facility] 1.2.840.114 [id number] Univers 00:00:00 00:00:00 Management Wondiful [facility] 350.1.13.10 ity of [place] 4.2.7.2.686 Stephan as Professio [phone] Ar dorothytn maksim Holliday [place] [facility] One 2020-02-21 2020-02-21 Case Nayla [facility] 1.2.840.114 [id number] Univers 00:00:00 00:00:00 Management W[facility]iful [facility] 350.1.13.10 ity of [place] 4.2.7.2.686 Stephan as Professio [phone] Ar erendira nal [address] [place] [address] Office [facility] One 2020-02-20 2020-02-20 Pharmacy Clerk Lab, Adc Fam Pob I [facility] 1.2. 840.114 [id number] Univers 09:36:04 09:56:04 Visit NaylaYaw bushtremayne [facility] 350.1.13.1 0 ity of [place] 4.2.7.2.686 Stephan as Professio [phone] Ar erendira nal [address] [place] [address] Office Building One 2020-02-20 2020-02-20 Office [place] [facility] 1.2.840.114 [id number] Univers 08:38:38 09:42:24 Visit Wondiful [facility] 350.1.13.10 ity of [place] 4.2.7.2.686 Stephan as Professio [phone] Ar erendira [address] Office [facility] One 2020-02-20 2020-02-20 Out[facility] [id number] Univers 08:45:00 08:45:00 WONDIFUL ity o f [facility] 2020-02-14 2020-02-14 Hospital [facility] 1.2.239.251 [id number] Univers 08:40:00 23:59:00 Encounter [place]iful A [place] 350.1.13.10 [place] [phone] [facility] [address] 2020-02-14 2020-02-14 Out[facility] [id number] Univers 00:00:00 00:00:00 WONDIFUL ity o f [facility] 2020-02-14 2020-02-14 Orders Doctor ROSANNA 1.2.840.114 [id number] Univers 00:00:00 00:00:00 Only Unassigned, ROSA MARIA 350.1.13.10 ity of [place] [facility] 4.2.7.2.686 Stephan as [phone] [facility] [address] 2019-12-05 2019-12-05 [facility] 1.2.840.114 [id number] Univers 00:00:00 00:00:00 Wondiful A Health 350.1.13.10 ity of [place] 4.2.7.2.686 Stephan as Professio [phone] Ar dical nal [address] [place] [facility] One 2019-08-24 2019-08-24 Out[facility] [id number] Univers 08:45:00 08:45:00 WONDIFUL ity o f [facility] 2019-08-24 2019-08-24 Telemedici [facility] 1.2.840.114 [id number] Univers 07:14:47 07:29:47 ne Visit W[place]iful A [place] 350.1.13.10 it[place] of [place] [phone] Ar dical nal [address] [place] Building 2019-08-24 2019-08-24 Letter Doctor ROSANNA 1.2.840.114 [id number] Univers 00:00:00 00:00:00 (Out) Unassigned, ROSA MARIA 350.1.13.10 ity [place] [facility] 4.2.7.2.686 Stephan as [phone] [facility] [address] 2018-12-21 2018-12-21 Office Akhilkileyjoe [facility] 1.2.076.410 [id number] [facility] 12:51:55 13:57:03 Visit Rosie Collins [employer] 350.1.13.[address] [facility] 4.2.7.2.686 Stephan as MATERNAL [phone] Med ical & CHILD 107 [facility] 2018-12-21 2018-12-21 Orders Doctor ROSANNA 1.2.840.114 [id number] Univers 00:00:00 00:00:00 Only UnassignedROSA MARIA 350.1.13.10 ity of [place] [facility] 4.2.7.2.686 Stephan as [phone] [facility] [address] [place] Results Test Description Test Time Test Comments Results Result Comments Source LIPID PANEL (02750)(TOTAL CHOLESTEROL, TRIGLYCERIDES, HDL) 21:37:10 Test Item Value Reference Range Interpretation Comme nts CHOL (test code = 6710074928) 72 mg/dL 120-200 L HDL (test code = 1292471042) 28 mg/dL >=50 L HDLC RATIO (test code = 5298240698) 2.6 <=4.5 TRIG (test code = 0001887940) 108 mg/dL 30-170 LDL CHOL (test code = 61684-5) 22 mg/dL <=160 VLDL (test code = 1919356932) 22 mg/dL 5-60 Lab Interpretation (test code = 09142-5) [facility]normal [facility]00538[facility]2022-12-03 21:36:50 Test Item Value Reference Range Interpretation Comments NA (test code = 144 mmol/L 135-145 7828711867) K (test code = 4.4 mmol/L 3.5-5.0 2512732930) CL (test code = 104 mmol/L 98-108 3094127423) CO2 TOTAL (test code = 28 mmol/L 23-31 2385838059) AGAP (test code = 12 2-16 3816758095) BUN (test code = 22 mg/dL 7-23 0704058217) GLUCOSE (test code = 96 mg/dL 70-110 9956505261) CREATININE (test code = 0.89 mg/dL 0.50-1.04 0759062531) TOTAL BILI (test code = 0.8 mg/dL 0.1-1.3 3164527888) CALCIUM (test code = 9.5 mg/dL 8.6-10.6 3671930535) T PROTEIN (test code = 7.5 g/dL 6.3-8.2 4622708213) ALBUMIN (test code = 4.0 g/dL 3.5-5.0 9430543719) ALK PHOS (test code = 162 U/L 34-122 H 1792544003) ALTv (test code = 31 U/L 5-35 1741-6) AST(SGOT) (test code = 32 U/L 13-40 4553424833) eGFR (test code = 62.9 mL/min/1.73m2 9294211976) MELANIE (test code = MELANIE) Association of [...] tests). Lab Interpretation Abnormal (test code = 63520-5) [facility] URINALYSIS W/O SPECIFIC [id number] 16:21:00 Test Item Value Reference Range Interpretation [...] code = 3257) Negative Negative - Negative [facility] URINALYSIS W/O SPECIFIC [id number] 16:21:00 Test Item Value Reference Range Interpretation [...] code = 3257) Negative Negative - Negative [facility]1C)2022-05-25 22:36:08 Test Item Value Reference Range Interpretation Comments HGB A1C (test code = 5.8 % 4.0-5.7 H 4548-4) MELANIE (test code = MELANIE) Reference RangesNormal: <5.7%Prediabetes: 5.7 - 6.4%Diabetes: > 6.5% Lab Interpretation (test Abnormal code = 14621-7) [facility] (90517)2022-05-25 20:33:21 Test Item Value Reference Range Interpretation Comments NA (test code = 143 mmol/L 135-145 1253811223) K (test code = 4.8 mmol/L 3.5-5.0 3993836671) CL (test code = 107 mmol/L 98-108 3635145345) CO2 TOTAL (test code = 24 mmol/L 23-31 4463746805) AGAP (test code = 2-16 6698390008) BUN (test code = 30 mg/dL 7-23 H 8792476790) GLUCOSE (test code = 113 mg/dL 70-110 H 7540064394) CREATININE (test code = 1.05 mg/dL 0.50-1.04 H 5578632345) TOTAL BILI (test code = 1.0 mg/dL 0.1-1.3 7159190115) CALCIUM (test code = 9.4 mg/dL 8.6-10.6 2293387397) T PROTEIN (test code = 7.8 g/dL 6.3-8.2 6679063050) ALBUMIN (test code = 4.4 g/dL 3.5-5.0 7925984262) ALK PHOS (test code = 145 U/L 34-122 H 3912894888) ALTv (test code = 39 U/L 5-35 H 1742-6) AST(SGOT) (test code = 44 U/L 13-40 H 7981039502) eGFR (test code = mL/min/1.73m2 3284905206) MELANIE (test code = MELANIE) Association of [...] tests). Lab Interpretation Abnormal (test code = 12084-2) [facility] [id number] 10:39:44 - SCR MAMM BILATERAL BOUCHRA CAD DIGITALBILATERAL DIGITAL SCREENING MAMMOGRAM 3D/2D WITH CAD: 05/26/2018CLINICAL: Asymptomatic. Digital breast tomosynthesis was performed in addition to routine CC and MLOviews. Current mammographic images were evaluated by either a Way2Pay M-Vu or a [employer] ImagecFareser CAD (computer aided detection system). No prior [...] mammograms for comparison.Ravinder Beatty M.D. rb/:06/07/2018 10:39:44 Auto Body Technician: Minerva Long MM, [facility] Mammographyletter sent: BIRADS 1-2 Normal Mammogram BI-RADS: 2 Benign"
[2023-03-13 01:12] LABS: Absolute Lymphocytes (CBC) 1.7 K/uL (0.7-4.9); Hematocrit 41.8 % (36.0-45.0); Lymphocytes % 14.9 % (15.3-44.8); MPV 8.8 fL (7.6-11.3); Platelets 210 thou/uL (152-406); RBC Red Blood Cell Count 4.64 M/uL (3.86-4.86)
[2023-03-13 01:16] LABS: Protime INR 0.93
[2023-03-13 01:32] LABS: Albumin 3.7 g/dL (3.4-5.0); Bilirubin Direct 0.2 mg/dL (0-0.2); Bilirubin Indirect, Calculated 0.3 mg/dL (0.2-0.8); Bilirubin Total 0.5 mg/dL (0.2-1.0); Potassium 3.7 mEq/L (3.5-5.1); Protein, Total 8.3 g/dL (6.4-8.2); Troponin High Sensitivity 43.5 pg/mL (<58.9)
[2023-03-13] MEDS ORDERED: FENTANYL CITR 100 MCG/2 ML ONE (02:14)
[2023-03-13] MEDS ORDERED: ONDANSETRON 4 MG/2 ML VIAL ONE (02:14)
--- NOTE | 2023-03-13 04:04 | EDPHYS ---
Physician Documentation [facility] Name: Debbi Soto Age: 67 yrs Sex: Female : 1955 Arrival Date: 03/12/2023 Time: 23:27 Bed 18 Private MD: ED Physician Tyrese Zacarias HPI: 03/13 00:30 This 67 yrs old Female presents to ER via Ambulatory with complaints of cp Abdominal Pain. 00:30 The patient presents with abdominal pain in the upper abdomen. Onset: The cp symptoms/episode began/occurred last night. The symptoms do not radiate. 00:30 Associated signs and symptoms: Pertinent negatives: chest pain, constipation, diarrhea, cp dysuria, fever, vomiting. The symptoms are described as waxing/waning. Severity of pain: in the emergency department the pain has improved mildly. Historical: - Allergies: 00:17 Morphine; vc1 00:17 PENICILLINS; vc1 - PMHx: 00:17 diabetes mellitus; Hyperlipidemia; Hypertension; Sleep Apnea; vc1 - PSHx: 00:17 Cholecystectomy; hernia repair; Ligation of fallopian tube; vc1 - Immunization history:: Client reports receiving the 2nd dose of the Covid vaccine, Flu vaccine is up to date. - Social history:: Smoking status: Patient denies any tobacco usage or history of. ROS: 00:35 Constitutional: Negative for body aches, chills, fever, poor PO intake, cp 00:35 Cardiovascular: Negative for chest pain, cp 00:35 Respiratory: Negative for cough, shortness of breath, wheezing, 00:35 Abdomen/GI: Positive for abdominal pain, 00:35 Eyes: Negative for injury, pain, redness, and discharge, cp 00:35 ENT: Negative for drainage from ear(s), ear pain, sore throat, difficulty swallowing, cp difficulty handling secretions, 00:35 Back: Negative for radiated pain, 00:35 Neuro: Negative for altered mental status, dizziness, headache, numbness, syncope, weakness, 00:35 All other systems are negative, Exam: 00:40 Constitutional: The patient appears in no acute distress, alert, awake, cp non-diaphoretic, non-toxic, well developed, well nourished, obese, uncomfortable, 00:40 Head/Face: Normocephalic, atraumatic. cp 00:40 Eyes: Periorbital structures: appear normal, Conjunctiva: normal, no exudate, no injection, Sclera: no appreciated abnormality, Lids and lashes: appear normal, bilaterally, 00:40 ENT: External ear(s): are unremarkable, Nose: is normal, Mouth: Lips: moist, Oral mucosa: pink and intact, moist, Posterior pharynx: is normal, airway is patent, no erythema, no exudate, 00:40 Chest/axilla: Inspection: normal, 00:40 Cardiovascular: Rate: normal, Rhythm: regular, Edema: is not appreciated, JVD: is not appreciated, 00:40 Respiratory: the patient does not display signs of respiratory distress, Respirations: normal, no use of accessory muscles, no retractions, labored breathing, is not present, Breath sounds: are clear throughout, no decreased breath sounds, no stridor, no wheezing, 00:40 Abdomen/GI: Inspection: obese Bowel sounds: active, all quadrants, Palpation: soft, in all quadrants, moderate abdominal tenderness, in the epigastric area and right upper quadrant, rebound tenderness, is not appreciated, involuntary guarding, is not appreciated, 01:09 ECG was reviewed by the Attending Physician. cp Vital Signs: 00:14 Weight 117.03 kg; Height 4 ft. 9 in. ; Pain 3/10; vc1 00:23 BP 153 / 70; Pulse 76; Resp 20; Temp 97.7; Pulse Ox 94% on R/A; vc1 02:00 BP 149 / 65; Pulse 68; Resp 18 S; Pulse Ox 96% on R/A; ha1 02:30 BP 129 / 59; Pulse 67; Resp 18 S; Pulse Ox 97% on R/A; ha1 03:00 BP 104 / 55; Pulse 63; Resp 18 S; Pulse Ox 96% on R/A; ha1 04:00 BP 109 / 64; Pulse 68; Resp 19 S; Pulse Ox 97% on R/A; ha1 00:14 Body Mass Index 55.83 (117.03 kg, 144.78 cm) vc1 00:14 Pain Scale: Adult vc1 MDM: 00:14 Patient medically screened. cp 01:00 Differential diagnosis: appendicitis, bowel obstruction, cholecystitis, Cholelithiasis, cp gastritis, non-specific abd pain, pancreatitis, Peptic Ulcer Disease, Perf. Duodenal Ulcer, Perf. Gastric Ulcer, Pyelonephritis, Ureterolithiasis, urinary tract infection. 04:02 Data reviewed: vital signs, nurses notes, lab test result(s), radiologic studies, CT cp scan. 04:02 I considered the following discharge prescriptions or medication management in the emergency department Medications were administered in the Emergency Department. See MAR. Independent interpretation of the following test(s) in the Emergency Department EKG: See my EKG interpretation above. Care significantly affected by the following chronic conditions: Diabetes, Hypertension, Obesity. Counseling: I had a detailed discussion with the patient and/or guardian regarding the historical points, exam findings, and any diagnostic results supporting the discharge/admit diagnosis, lab results, radiology results, to return to the emergency department if symptoms worsen or persist or if there are any questions or concerns that arise at home. Response to treatment: the patient's symptoms have markedly improved after treatment, and as a result, I will discharge patient. Special discussion: Based on the patient's Hx, exam, and Dx evaluation, there is no indication for emergent surgery or inpatient Tx. It is understood by the patient/guardian that if the Sx's persist or worsen they need to return immediately for re-evaluation. 03/13 00:23 Order name: Basic Metabolic Panel; Complete Time: 03/13 Interpretation: Normal except: GLUC 145; BUN 37; CRE 1.65; GFR 33. 03/13 00:23 Order name: CBC with Diff; Complete Time: 03/13 01:44 Interpretation: Normal except: WBC 11.30; YOHAN% 75.1; LYM% 14.9; NEUT A 8.5. 03/13 00:23 Order name: LFT's; Complete Time: : 03/13 01:44 Interpretation: Normal except: ALK 176; TP 8.3; GLOB 4.6; A/G 0.8. 03/13 00:23 Order name: Magnesium; Complete Time: 03/13 00:23 Order name: PT-INR; Complete Time: : 03/13 00:23 Order name: Troponin HS; Complete Time: 03/1344 Interpretation: Troponin HS 43.5; Reviewed. 11/11 00:23 Order name: Lipase; Complete Time: 01:43 cp 03/13 00:23 Order name: XRAY Chest (1 view) 03/13 01:45 Order name: CT Abd/Pelvis - Without Contrast 03/13 00:23 Order name: EKG; Complete Time: 00:24 cp 03/13 00:23 Order name: Cardiac monitoring; Complete Time: 02:31 cp 03/13 00:23 Order name: EKG - Nurse/Tech; Complete Time: 01:53 cp 03/13 00:23 Order name: IV Saline Lock; Complete Time: :54 cp 03/13 00:23 Order name: Labs collected and sent; Complete Time: :54 cp 03/13 00:23 Order name: O2 Per Protocol; Complete Time: :54 cp 03/13 00:23 Order name: O2 Sat Monitoring; Complete Time: :54 cp EC:09 Rate is 76 beats/min. Rhythm is regular. DC interval is normal. QRS interval is normal. cp QT interval is normal. Interpreted by me. Reviewed by me. Administered Medications: 02:05 Drug: Ondansetron IVP 4 mg IVP once; over 2 minutes Route: IVP; Site: left antecubital; ha1 02:30 Follow up: Response: No adverse reaction; Nausea is decreased ha1 02:07 Drug: fentaNYL (PF) IVP 25 mcg IVP once Route: IVP; Site: left antecubital; ha1 02:30 Follow up: Response: No adverse reaction; Pain is decreased; RASS: Alert and Calm (0) ha1 Disposition Summary: 03/13/23 04:03 Discharge Ordered Notes: Location: Home cp Problem: new cp Symptoms: are resolved cp Condition: Stable cp Diagnosis - Upper abdominal pain, unspecified cp Followup: cp - With: Private Physician - When: 2 - 3 days - Reason: Recheck today's complaints Discharge Instructions: - Discharge Summary Sheet cp - Abdominal Pain, Adult cp Forms: - Medication Reconciliation Form cp - Thank You Letter cp - Antibiotic Education cp - Prescription Opioid Use cp - Patient Portal Instructions cp - Leadership Thank You Letter cp Prescriptions: - Zofran 4 mg Oral Tablet - take 1 tablet ORAL route every 12 hours As needed; 20 tablet; Refills: 0, cp Product Selection Permitted - dicyclomine 20 mg Oral tablet - take 1 tablet ORAL route 4 times per day; 20 tablet; Refills: 0, Product cp Selection Permitted Signatures: Dispatcher [employer] Shukri Mary PA PA cp Calcote, Vanessa RN RN vc1 Patricia Nixon RN RN ha1
--- NOTE | 2023-03-13 04:04 | ER ---
Nurse's Notes [facility] [place], [place] [facility] Name: Debbi Soto Age: 67 yrs Sex: Female : 1955 Arrival Date: 03/12/2023 Time: 23:27 Bed 18 Private MD: Diagnosis: Upper abdominal pain, unspecified Presentation: 03/13 00:14 Chief complaint: Patient states: upper abdominal pain started about 10:30. Coronavirus vc1 screen: Vaccine status: Patient reports receiving the 2nd dose of the covid vaccine. all boosters Client denies travel out of the [place] in the last 14 days. At this time, the client does not indicate any symptoms associated with coronavirus-19. Ebola Screen: Patient negative for fever greater than or equal to 101.5 degrees Fahrenheit, and additional compatible Ebola Virus Disease symptoms Patient denies exposure to infectious person. Patient denies travel to an Ebola-affected area in the 21 days before illness onset. No symptoms or risks identified at this time. Risk Assessment: Do you want to hurt yourself or someone else? Patient reports no desire to harm self or others. Onset of symptoms was March 12, 2023 at 22:30. 00:14 Method Of Arrival: Ambulatory vc1 00:14 Acuity: GONSALO 3 vc1 01:00 Initial Sepsis Screen: Does the patient meet any 2 criteria? No. Patient's initial ha1 sepsis screen is negative. Does the patient have a suspected source of infection? No. Patient's initial sepsis screen is negative. Triage Assessment: 00:18 General: Appears in no apparent distress. uncomfortable, obese, Behavior is vc1 cooperative, appropriate for age. Pain: Complains of pain in right upper quadrant Pain does not radiate. Pain currently is 4 out of 10 on a pain scale. at worst was 8 out of 10 on a pain scale. Quality of pain is described as sharp, Pain began suddenly, 2 hours ago. Is intermittent. EENT: No deficits noted. No signs and/or symptoms were reported regarding the EENT system. Neuro: Level of Consciousness is awake, alert, obeys commands, Oriented to person, place, time, situation, Appropriate for age. Cardiovascular: No deficits noted. Respiratory: Airway is patent Respiratory effort is even, unlabored, Respiratory pattern is regular, symmetrical. GI: Reports upper abdominal pain, Patient currently denies diarrhea, nausea. : No deficits noted. No signs and/or symptoms were reported regarding the genitourinary system. Derm: No deficits noted. No signs and/or symptoms reported regarding the dermatologic system. Musculoskeletal: No deficits noted. No signs and/or symptoms reported regarding the musculoskeletal system. Historical: - Allergies: 00:17 Morphine; vc1 00:17 PENICILLINS; vc1 - PMHx: 00:17 diabetes mellitus; Hyperlipidemia; Hypertension; Sleep Apnea; vc1 - PSHx: 00:17 Cholecystectomy; hernia repair; Ligation of fallopian tube; vc1 - Immunization history:: Client reports receiving the 2nd dose of the Covid vaccine, Flu vaccine is up to date. - Social history:: Smoking status: Patient denies any tobacco usage or history of. Screenin:00 [facility] ED Fall Risk Assessment (Adult) History of falling in the last 3 months, ha1 including since admission Yes- single mechanical fall (1 pt) Confusion or Disorientation No (0 pts) Intoxicated or Sedated No (0 pts) Impaired Gait Yes (1 pt) Mobility Assist Device Used Yes (1 pt) Altered Elimination No (0 pt) Score/Fall Risk Level 3 or more points = High Risk Oriented to surroundings, Maintained a safe environment, Used ambulatory aids as needed (educated on \T\ assisted with). Abuse screen: Denies threats or abuse. Denies injuries from another. Nutritional screening: No deficits noted. Assessment: 00:15 General: Appears uncomfortable, Behavior is calm, cooperative. Pain: Complains of pain ha1 in right upper quadrant Pain does not radiate. Pain currently is 8 out of 10 on a pain scale. Neuro: Level of Consciousness is awake, alert, obeys commands, Oriented to person, place, time, situation. Cardiovascular: Capillary refill < 3 seconds Patient's skin is warm and dry. Respiratory: Airway is patent Respiratory effort is even, unlabored, Respiratory pattern is regular, symmetrical. GI: Abdomen is round obese, Bowel sounds present X 4 quads. Abdomen is tender to palpation in right upper quadrant Reports upper abdominal pain, nausea. Musculoskeletal: Circulation, motion, and sensation intact. Range of motion: intact in all extremities. 01:15 Reassessment: Patient and/or family updated on plan of care and expected duration. Pain ha1 level reassessed. Patient is alert, oriented x 3, equal unlabored respirations, skin warm/dry/pink. 02:00 Reassessment: Patient and/or family updated on plan of care and expected duration. Pain ha1 level reassessed. Patient is alert, oriented x 3, equal unlabored respirations, skin warm/dry/pink. Patient states feeling better. Patient states symptoms have improved. 03:00 Reassessment: Patient and/or family updated on plan of care and expected duration. Pain ha1 level reassessed. Patient is alert, oriented x 3, equal unlabored respirations, skin warm/dry/pink. 04:00 Reassessment: Patient and/or family updated on plan of care and expected duration. Pain ha1 level reassessed. Patient is alert, oriented x 3, equal unlabored respirations, skin warm/dry/pink. Vital Signs: 00:14 Weight 117.03 kg; Height 4 ft. 9 in. ; Pain 3/10; vc1 00:23 BP 153 / 70; Pulse 76; Resp 20; Temp 97.7; Pulse Ox 94% on R/A; vc1 02:00 BP 149 / 65; Pulse 68; Resp 18 S; Pulse Ox 96% on R/A; ha1 02:30 BP 129 / 59; Pulse 67; Resp 18 S; Pulse Ox 97% on R/A; ha1 03:00 BP 104 / 55; Pulse 63; Resp 18 S; Pulse Ox 96% on R/A; ha1 04:00 BP 109 / 64; Pulse 68; Resp 19 S; Pulse Ox 97% on R/A; ha1 00:14 Body Mass Index 55.83 (117.03 kg, 144.78 cm) vc1 00:14 Pain Scale: Adult vc1 ED Course: 03/12 23:36 Patient arrived in ED. gm2 03/13 00:13 Shukri Gonzalez PA is PHCP. cp 00:13 Tyrese Zacarias is Attending Physician. cp 00:13 Patient has correct armband on for positive identification. Placed in gown. Bed in low ha1 position. Call light in reach. Side rails up X 1. 00:17 Triage completed. vc1 00:18 Arm band placed on right wrist. vc1 00:54 XRAY Chest (1 view) In Process Unspecified. EDMS 01:13 Inserted saline lock: 22 gauge in left antecubital area, using aseptic technique. Blood kmf collected. 01:16 Basic Metabolic Panel Sent. kmf 01:16 LFT's Sent. kmf 01:16 Magnesium Sent. kmf 01:16 PT-INR Sent. kmf 01:16 Troponin HS Sent. kmf 01:53 Patricia Nixon, RN is Primary Nurse. ha1 02:39 CT Abd/Pelvis - Without Contrast In Process Unspecified. EDMS 04:42 No provider procedures requiring assistance completed. IV discontinued, intact, ha1 bleeding controlled, No redness/swelling at site. Pressure dressing applied. 04:44 Provided Education on: medication administration . ha1 Administered Medications: 02:05 Drug: Ondansetron IVP 4 mg IVP once; over 2 minutes Route: IVP; Site: left antecubital; ha1 02:30 Follow up: Response: No adverse reaction; Nausea is decreased ha1 02:07 Drug: fentaNYL (PF) IVP 25 mcg IVP once Route: IVP; Site: left antecubital; ha1 02:30 Follow up: Response: No adverse reaction; Pain is decreased; RASS: Alert and Calm (0) ha1 Medication: 04:43 VIS not applicable for this client. ha1 Outcome: 04:03 Discharge ordered by MD. cp 04:43 Discharged to home via wheelchair, with family, ha1 04:43 Condition: stable 04:43 Discharge instructions given to patient, family, Instructed on discharge instructions, follow up and referral plans. medication usage, Demonstrated understanding of instructions, follow-up care, medications, Prescriptions given X 2, 04:46 Patient left the ED. ha1 Signatures: Dispatcher [employer] EDMS Shukri Gonzalez PA PA cp Calcote, Vanessa RN RN vc1 Patricia Nixon RN RN ha1 Jaci Mcneal 2 Cris Downs kmf
[2023-03-13 05:00] VITALS: TEMP 97.7
[2023-03-13 05:14] VITALS: BP 109/64; O2SAT 97
--- NOTE | 2023-03-13 14:06 | EKG ---
Test Date: 2023-03-13 Test Time: 00:56:12 Glass Beveller: GOLD MEASUREMENT RESULTS: Intervals: Rate: 76 SC: 164 QRSD: 82 QT: 382 QTc: 429 Harbinger: P: 61 SC: 164 QRS: 85 T: 7 INTERPRETIVE STATEMENTS: Normal sinus rhythm Normal ECG Compared to ECG 01/20/2022 10:50:18 ST (T wave) deviation no longer present Electronically Signed On 03-13-23 14:06:01 SHAGGER by Adi Parr
--- NOTE | 2023-03-13 16:38 | RAD REPORT ---
EXAM DESCRIPTION: CT - Abdomen Pelvis Wo Contrast - 03/13/2023 6:09 am CLINICAL HISTORY: 67 years Female; UPPER ABD PAIN; NO CONTRAST Bed Name: 18 TECHNIQUE: CT of the abdomen and pelvis without contrast. All CT scans at this facility use dose modulation, iterative reconstruction, and/or weight based dosi ng when appropriate to reduce radiation dose to as low as reasonably achievable. COMPARISON: CT abdomen pelvis 01/20/2022. FINDINGS: Lower thorax: Bibasilar scarring/atelectasis. Abdomen: Stomach: Within normal limits Liver: No focal lesions. Enlarged. No intrahepatic ductal distention. Gallbladder: Surgically absent. Pancreas: Within normal limits Spleen: Within normal limits Right kidney: No hydronephrosis. No renal or ureteral calculi. Left kidney: No hydronephrosis. No renal or ureteral calculi. Adrenal glands: Within normal limits Vascular structures: Atherosclerosis of the abdominal aorta and major branches. Lymph nodes: No lymphadenopathy by size criteria Pelvis: Small bowel: No significant distention. Appendix: Within normal limits Colon: No distention or acute pericolonic edema. Peritoneum: No free intraperitoneal fluid or air. Bones: No acute bone findings. Bladder: Unremarkable. Reproductive organs: No acute findings. Note that evaluation of the bowel and solid organs is somewhat limited due to lack of intravenous and oral contrast. IMPRESSION: 1. No acute abdominopelvic findings. 2. Hepatomegaly. Electronically signed by: Silas Alejo MD 03/13/2023 03:50 AM PAROLE BOARD MEMBER Due to temporary technical issues with the PACS/Fluency reporting system, reports are being signed by the in house radiologists without review as a courtesy to insure prompt reporting. The interpreting radiologist is fully responsible for the content of the report.
--- NOTE | 2023-03-13 16:43 | RAD REPORT ---
EXAM DESCRIPTION: RAD - Chest Single View - 03/13/2023 12:53 am CLINICAL HISTORY: Upper abdomen pain COMPARISON: None. TECHNIQUE: XR CHEST 1 VIEW 03/13/2023 12:23 AM BUTCHER ASSISTANT FINDINGS: Cardiac silhouette is normal in size. Lungs are clear without consolidation, atelectasis, mass or edema. There is no pleural effusion. There is no pneumothorax. There are no acute osseous fin dings. IMPRESSION: Clear lungs. Electronically signed by: Vic Gonsales MD 03/13/2023 01:24 AM BUTCHER ASSISTANT Due to temporary technical issues with the PACS/Fluency reporting system, reports are being signed by the in house radiologists without review as a courtesy to insure prompt reporting. The interpreting radiologist is fully responsible for the content of the report.
== END 2023-03-13 04:46 | disposition home or self-care (01) ==
LOC: ER 23:27
DX: R10.10 Upper abdominal pain, unspecified (principal); Z88.0 Allergy status to penicillin; Z88.5 Allergy status to narcotic agent
CPT/HCPCS: 93005; 85025; 80048; 36415; 83735; 85610; 80076; 84484; 83690; 74176; 71045; 96375; 96374; 99284; J3010; J2405

== ENCOUNTER 2024-01-06 07:55 | Emergency (ER) | payer OTHER ==
--- OUTSIDE RECORDS SUMMARY | 2024-01-06 08:12 | XMS REPORT | Continuity of Care Document ---
Author Name Unknown Address [address] [facility] [address] [place] [address] [facility] thconnect Address [address] [facility] [address] [place] [address] Care Team Providers Care Account Relationship Manager Name Role Phone SHAGGY WINSLOW Primary Care Physician DOMINIC Garrison Attending Clinician KRYSTINA Chavarria Attending Clinician KRYSTINA Vela Attending Clinician DESIREE Castellano Attending Clinician UnavailCINTHYA Thomas Attending Clinician Unavailable CINTHYA WILL Attending Clinician Unavailable Cinthya Will MD Attending Clinician [phone] Doctor Unassigned, [place] Attending Clinician U jossie Parra, [facility] - Attending Clinician Unavailable Krystina Tejeda MD Attending Clinician [phone] Doctor Unassigned, [place] Attending Clinician U jossie , [facility] Sleep Lab Bed Attending Clinician Michael Marin MD Attending Clinician MICHAEL SANDHU Attending Clinician MICHAEL Avila Attending Clinician UnavailJOCELYN Elizalde Attending Clinician Unavailable JOCELYN LEUNG Attending Clinician Unavailable Janusz TREJO, Desiree DowHIsidro Attending Clinician + [phone] Lab, Ang Cristal Perez Attending Clinician Unavailable Krystina Tejeda MD Attending Clinician [phone] YESI CAPUTO Attending Clinician Unavailable Yesi Serrano Attending Clinician [phone] MEE ANDERSON Attending Clinician Unavailable Mee Anderson MD Attending Clinician [phone] Farhan COLD ROLLING SUPERVISOR, Gera F Attending Clinician Unavaila juancarlos Pob, [facility] Main Attending Clinician Unavailmassiel Ramesh MD, Lance Attending Clinician [phone] Nurse, [facility] Attending Clinician Un available Jing Mg Attending Clinician [phone] JING CONN Attending Clinician Unavailable VIRGINIA PEACOCK Attending Clinician Marcella Virginia Pan MD Attending Clinician 2, [facility] Attending Clinician Unavailable Radha Pat LMSW Attending Clinician [phone] Dominic Starks MD Attending Clinician + [phone] Alejandra Nice MD Attending Clinician [phone] Shaggy Winslow MD Attending Clinician + [phone] Dany Perez S Attending Clinician [phone] Julia Garcia DO Attending Clinician [phone] Only, [facility] Test Attending Clinician Unavailable Leigh Hill PT Attending Clinician Unavailab xochilt Herrera, [facility] Sunday Attending Clinician Unavailable Eran Almendarez DO Attending Clinician [phone] ERAN ALMENDAREZ Attending Clinician Unavail able Nurse, [facility] Pob Immunization Attending Clinician Unavailable Tech, [facility] Sleep Lab Attending Clinician Unavaila SHAGGY Álvarez Attending Clinician Unavaila ZI Petersen Attending Clinician Unavailable Pc, [facility] Echo Room 1 - Attending Clinician Unagolden Martinez MD, Promise Attending Clinician [phone] Lab, [facility] Fam Pob I Attending Clinician Unavailab le Akinsipe WHCNP, Rosie C Attending Clinician + DOMINIC STARKS Admitting Clinician KRYSTINA Chavarria Admitting Clinician Krystina Vela MD Admitting Clinician [phone] CINTHYA WILL Admitting Clinician KRYSTINA Albert Admitting Clinician Dominic Peterson MD Admitting Clinician [phone] Payers Payer Name Policy Type Policy Number Effective Date Expirati on Date Source [facility] DUAL COMP HMO D SNP [id number] 2020 00:00:00 [place] [id number] 2019 00:00:00 Problems Condition Name Condition Details Condition Category Status Onset Date Resolution Date Last Treatment Date Treating Clinician Comments Source Preop testing Preop testing Disease Active 10-05 00:00: 00 [facility] Primary osteoarthr itis of left knee Primary osteoarthr itis of left knee Disease Active 10-05 00:00: 00 [facility] Hypertensi ve heart disease with chronic diastolic congestive heart failure Hypertensi ve heart disease with chronic diastolic congestive heart failure Disease Active 09-20 00:00: 00 [facility] Dyslipidem ia Dyslipidem ia Disease Active 09-20 00:00: 00 [facility] CHEN (dyspnea on exertion) CHEN (dyspnea on exertion) Disease Active 09-20 00:00: 00 [facility] Family history of ASCVD (arteriosc lerotic cardiovasc ular disease) Family history of ASCVD (arteriosc lerotic cardiovasc ular disease) Disease Active 09-20 00:00: 00 [facility] Ascending aorta dilatation Ascending aorta dilatation Disease Active 09-20 00:00: 00 [facility] LVH (left ventricula r hypertroph y) LVH (left ventricula r hypertroph y) Disease Active 09-20 00:00: 00 [facility] Pain and swelling of lower extremity, unspecifie d laterality Pain and swelling of lower extremity, unspecifie d laterality Disease Active 09-20 00:00: 00 [facility] At risk for falls At risk for falls Disease Active 07-06 00:00: 00 [facility] Unspecifie d abnormalit ies of gait and mobility Unspecifie d abnormalit ies of gait and mobility Disease Active 07-06 00:00: 00 [facility] Severe obstructiv e sleep apnea Severe obstructiv e sleep apnea Disease Active 2020-05 00:00: 00 [facility] Osteopenia Osteopenia Disease Active 2020-05 0 00:00: 00 [facility] Microscopi c hematuria Microscopi c hematuria Disease Active 2020-05 00:00: 00 [facility] Vitamin D deficiency Vitamin D deficiency Disease Active 2019-05 0- 00:00: 00 [facility] Abnormal EKG Abnormal EKG Disease Active 2019-05 0 00:00: 00 [facility] Chronic constipati on Chronic constipati on Disease Active 08-23 00:00: 00 [facility] Urinary incontinen ce, unspecifie d type Urinary incontinen ce, unspecifie d type Disease Active 2018-05 00:00: 00 [facility] Prediabete s Prediabete s Disease Active 2018-05 0-30 00:00: 00 [facility] Fatty liver Fatty liver Disease Active 2018-05 0 00:00: 00 [facility] Essential hypertensi on, benign Essential hypertensi on, benign Disease Active 12-21 00:00: 00 [facility] Hyperchole sterolemia Hyperchole sterolemia Disease Active 12-21 00:00: 00 [facility] Morbid obesity with body mass index of 50 or higher Morbid obesity with body mass index of 50 or higher Disease Active 08-26 00:00: 00 [facility] Contracept estelle management Contracept estelle management Disease Resolve d 12-21 00:00: 00 2019-02-27 00:00:00 2019-02-27 12:46:50 [facility] Menopausal state Menopausal state Disease Resolve d 12-21 00:00: 00 2019-02-27 00:00:00 2019-02-27 12:46:56 [facility] Morbid obesity with body mass index of 40.0-49.9 Morbid obesity with body mass index of 40.0-49.9 Disease Resolve d 08-26 00:00: 00 2019-02-21 00:00:00 2019-02-21 10:57:52 [facility] Allergies, Adverse Reactions, Alerts Allergy Name Allergy Type Status Severity Reaction(s) Onset Date Inactive Date Treating Clinician Comments Source TRAMADOL DRUG INGREDI Active Low Swelling 10-05 00:00: 00 [facility] Tramadol Propensi ty to adverse reaction s to drug Active Swelling 10-05 00:00: 00 [facility] MORPHINE DRUG INGREDI Active Other-Cmnt 08-25 00:00: 00 [facility] Morphine Drug Intolera nce Active Other - See comments 08-25 00:00: 00 Pt states that Morphine makes pt's pain worse. [facility] Social History Social Habit Start Date Stop Date Quantity Comments Source Gender identity [facility] Alcoholic beverage intake 2023-12-08 00:00:00 2023-12-08 00:00:00 Current non-drinker of alcohol (finding) [facility] Education 2023-10-18 00:00:00 2023-10-18 00:00:00 12 [facility] Alcohol intake 2023-07-29 00:00:00 2023-07-29 00:00:00 Current non-drinker of alcohol (finding) [facility] History of Social function 2023-07-07 00:00:00 2023-07-07 00:00:00 [facility] Exposure to SARS-CoV-2 (event) 2022-08-29 00:00:00 2022-09-08 09:06:00 Not sure [facility] Tobacco use and exposure 2021-12-15 00:00:00 2021-12-15 00:00:00 Smokeless tobacco non-user [facility] Sex assigned at 1955 00:00:00 1955 00:00:00 [facility] Smoking Status Start Date Stop Date Source Never smoked tobacco [facility] Medications Ordered Medication Name Filled Medication Name Start Date Stop Date Current Medication? Ordering Clinician Indication Dosage Frequency Signature (SIG) Comments Components Source METFORMIN 500 mg tablet 01-03 00:00: 00 Yes [id number] TAKE 1 TABLET BY MOUTH IN THE MORNING AND IN THE EVENING WITH MEALS [facility] carvediloL 3.125 mg tablet 12-28 00:00: 00 Yes [id number] TAKE 1 TABLET BY MOUTH IN THE MORNING AND 1 TABLET BY MOUTH IN THE EVENING WITH MEALS [facility] NIFEdipine XL (PROCARDIA XL) 30 mg 24 hr tablet 11-24 10:03: 55 Yes 30mg Take 1 tablet by mouth in the morning. [facility] atorvastati n 40 mg tablet 11-23 00:00: 00 Yes [id number] 104 40mg TAKE 1 TABLET BY MOUTH AT BEDTIME [facility] losartan 50 mg tablet 11-09 00:00: 00 Yes [id number] TAKE 1 TABLET BY MOUTH IN THE MORNING AND 1 TABLET BY MOUTH IN THE EVENING [facility] mupirocin 2 % ointment 10-28 00:00: 00 11-21 00:00 :00 No [id number] Apply to area(s) 3 (three) times daily. [facility] valACYclovi r (VALTREX) 1 gram tablet 10-28 00:00: 00 11-05 04:59 :00 Yes [id number] 1g Take 1 tablet by mouth in the morning and 1 tablet at noon and 1 tablet in the evening. Do all this for [address] [facility] mv-mn/iron/ folic acid/herb 190 (VITAMIN D3 COMPLETE ORAL) 10-18 18:41: 04 Yes 2000mg Take 2,000 mg by mouth daily. [facility] calcium carbonate (CALCIUM 600) 600 mg calcium (1,500 mg) tablet 10-18 18:41: 04 Yes 600mg Take 1 tablet by mouth in the morning. [facility] HYDROcodone -acetaminop hen (NORCO 5) 5-325 mg tablet 1 tablet 10-18 17:24: 07 Yes 1{tbl} 1 tablet, Oral, Q6HPRN, Starting on Wed10/19/23 at 1224, Until Discontinu ed, Routine, Pain (scale 4-6) [facility] acetaminoph en (TYLENOL) tablet 1,000 mg 10-18 14:04: 32 Yes 1000mg 1,000 mg, Oral, Q8HPRN, Starting on Wed10/19/23 at 0904, Until Discontinu ed, Routine, Pain (scale 1-3) [facility] atorvastati n (LIPITOR) tablet 40 mg 10-18 02:00: 00 Yes 40mg 40 mg, Oral, QHS, First dose on Wed10/18/23 at 2100, Until Discontinu ed, Routine [facility] losartan (COZAAR) tablet 50 mg 10-18 01:00: 00 Yes 50mg 50 mg, Oral, BID, First dose on Wed10/18/23 at 2000, Until Discontinu ed, Routine [facility] Sliding Scale Insulin - Lispro (HumaLOG) 10-17 22:00: 00 Yes Subcutaneo us, TID MEALS+HS, First dose on Wed10/18/23 at 1700, Until Discontinu ed, Routine [facility] metFORMIN (GLUCOPHAGE ) tablet 500 mg 10-17 22:00: 00 Yes 500mg 500 mg, Oral, BID MEALS, First dose on Wed10/18/23 at 1700, Until Discontinu ed, Routine [facility] carvediloL (COREG) tablet 3.125 mg 10-17 22:00: 00 Yes 3.125mg 3.125 mg, Oral, BID MEALS, First dose on Wed10/18/23 at 1700, Until Discontinu ed, Routine [facility] aspirin E.C. (ECOTRIN) tablet 325 mg 10-17 22:00: 00 11-14 21:59 :00 Yes 325mg 325 mg, Oral, BID MEALS, 56 doses, First dose on Wed10/18/23 at 1700, Last dose on Wed11/15/23 at 0800, Routine [facility] glucagon (GLUCAGEN DIAGNOSTIC KIT) injection 1 mg 10-17 21:45: 51 Yes 1mg 1 mg, Intramuscu lar, PRN, Starting on Wed10/18/23 at 1645, Until Discontinu ed, ALAN, Blood Glucose < or = 70 mg/dL and patient is NPO, unable to swallow or has mental changes. [facility] dextrose 50 % in water (D50W) injection 25 mL 10-17 21:45: 51 Yes 25mL 25 mL, Slow IV Push, PRN, Starting on Wed10/18/23 at 1645, Until Discontinu ed, ALAN, Blood Glucose < or = 70 mg/dL and patient is NPO, unable to swallow or has mental status changes. [facility] ondansetron (ZOFRAN (PF)) injection 4 mg 10-17 19:23: [address] [facility] mv-mn/iron/ folic acid/herb 190 (VITAMIN D3 COMPLETE ORAL) 10-17 15:53: 41 Yes 2000mg Take 2,000 mg by mouth daily. [facility] calcium carbonate (CALCIUM 600) 600 mg calcium (1,500 mg) tablet 10-17 15:53: 41 Yes 600mg Take 1 tablet by mouth in the morning. [facility] ondansetron (ZOFRAN (PF)) injection 4 mg 10-17 15:14: 32 Yes 4mg 4 mg, Slow IV Push, PRN, 1 dose, Starting on Wed10/18/23 at 1014, Until Discontinu ed, Routine, Nausea and Vomiting (N/V), PACU [facility] FENTanyl PF (SUBLIMAZE (PF)) injection 25 mcg 10-17 15:14: 32 10-18 17:24 :38 No 25ug 25 mcg, Slow IV Push, Q5MIN PRN, 4 doses, Starting on Wed10/18/23 at 1014, Until Wed10/19/23 at 1224, Routine, Pain (scale 7-10), PACU [facility] bupivacaine (preserv free) (SENSORCAIN E MPF) 0.25 % (2.5 mg/mL) 30 mL, BUPivacaine liposome (PF) (EXPAREL (PF)) 1.3 % (13.3 mg/mL) 266 mg, NaCl 0.9% (NS) 70 mL 10-17 14:09: 00 10-17 15:08 :34 No PRN, Starting on Wed10/18/23 at 0909, Intra-op [facility] sodium chloride 0.9 % irrigation solution 10-17 14:08: 00 10-17 15:08 :34 No PRN, Starting on Wed10/18/23 at 0908, Until Wed10/18/23 at 1008, Intra-op [facility] celecoxib (CELEBREX) capsule 400 mg 10-17 12:00: 00 10-17 12:12 :00 No 400mg 400 mg, Oral, ONCE, 1 dose, On Wed10/18/23 at 0700, Routine, DSU Pre-op [facility] gabapentin (NEURONTIN) capsule 300 mg 10-17 12:00: 00 10-17 12:13 :00 No 300mg 300 mg, Oral, ONCE, 1 dose, On Wed10/18/23 at 0700, Routine, DSU Pre-op [facility] lactated ringers IV infusion 1,000 mL 10-17 12:00: 00 10-17 12:34 :00 No 1000mL at 42 mL/hr, 1,000 mL, IV Infusion, ONCE, 1 dose, On Wed10/18/23 at 0700, Routine, DSU Pre-op [facility] calcium carbonate (CALCIUM 600) 600 mg calcium (1,500 mg) tablet 10-17 10:08: 34 Yes 600mg Take 1 tablet by mouth in the morning. [facility] mv-mn/iron/ folic acid/herb 190 (VITAMIN D3 COMPLETE ORAL) 10-17 08:28: 11 Yes 2000mg Take 2,000 mg by mouth daily. [facility] tranexamic acid (CYKLOKAPRO N) 1,000 mg in NaCl 0.9% (NS) 250 mL piggyback 10-17 05:00: 00 10-17 16:59 :[address] [facility] docusate 100 mg capsule 10-17 00:00: 00 11-21 00:00 :00 No [id number] 9109 100mg Take 1 capsule by mouth in the morning and 1 capsule in the evening. [facility] cephALEXin 500 mg capsule 10-17 00:00: 00 11-21 00:00 :00 No [id number] 500mg Take 1 capsule by mouth in the morning and 1 capsule in the evening. [facility] aspirin 325 mg tablet 10-17 00:00: 00 11-15 04:59 :00 Yes [id number] 9109 325mg Take 1 tablet by mouth in the morning and 1 tablet in the evening. Take with meals. Do all this for [address] [facility] HYDROcodone -acetaminop hen 5-325 mg tablet 10-17 00:00: 00 10-25 04:59 :00 Yes [id number] 1{tbl} Take 1 tablet by mouth every 6 (six) hours as needed for Pain (scale 4-6) or Pain (scale 7-10) for up to 7 days. Indication s: acute pain [facility] mv-mn/iron/ folic acid/herb 190 (VITAMIN D3 COMPLETE ORAL) 10-05 16:21: 22 Yes 2000mg Take 2,000 mg by mouth daily. [facility] calcium carbonate (CALCIUM 600) 600 mg calcium (1,500 mg) tablet 2024-0 6-05 16:21: 22 Yes 600mg Take 1 tablet by mouth in the morning. [facility] NIFEDIPINE XL 30 mg 24 hr tablet - 00:00: 00 11-24 00:00 :00 No [id number] TAKE 1 TABLET BY MOUTH IN THE MORNING AND 1 TABLET BY MOUTH IN THE EVENING [facility] triamcinolo ne acetonide (KENALOG) injection 40 mg 07-28 16:00: 00 07-28 15:07 :00 No 40mg 40 mg, Intramuscu lar, ONCE, 1 dose, On Melanie 07/29/23 at 1100, Routine [facility] carvediloL 3.125 mg tablet 07-28 00:00: 00 Yes [id number] TAKE 1 TABLET BY MOUTH IN THE MORNING AND 1 TABLET BY MOUTH IN THE EVENING WITH MEALS [facility] carvediloL 3.125 mg tablet 05-31 00:00: 00 07-28 00:00 :00 No [id number] 3.125mg Take 1 tablet by mouth in the morning and 1 tablet in the evening. Take with meals. [facility] furosemide 40 mg tablet 05-26 00:00: 00 10-28 00:00 :00 No [id number] 40mg Take 1 tablet by mouth as needed for Other (based on leg swelling). [facility] evolocumab (REPATHA SURECLICK) 140 mg/mL subcutaneou s injection 2022-05 00:00: 00 Yes [id number] 104 INJECT 140MG SUBCUTANEO USLY EVERY [address] [facility] atorvastati n 40 mg tablet 2022-05 00:00: 00 11-23 00:00 :00 No [id number] 104 40mg Take 1 tablet by mouth at bedtime. [facility] losartan 50 mg tablet 2022-05 00:00: 00 Yes [id number] 50mg Take 1 tablet by mouth in the morning and 1 tablet in the evening. [facility] metFORMIN 500 mg tablet 2022-05 00:00: 01-03 00:00 :00 No [id number] TAKE 1 TABLET BY MOUTH IN THE MORNING AND IN THE EVENING WITH MEALS [facility] furosemide 40 mg tablet 2022-05 00:00: 00 05-26 00:00 :00 No [id number] 40mg Take 1 tablet by mouth in the morning. [facility] losartan 50 mg tablet 01-29 00:00: 03-31 00:00 :00 No [id number] 50mg Take 1 tablet by mouth in the morning and 1 tablet in the evening. [facility] atorvastati n 40 mg tablet 01-25 00:00: 00 04-23 00:00 :00 No [id number] 104 40mg Take 1 tablet by mouth at bedtime. [facility] evolocumab (REPATHA SURECLICK) 140 mg/mL PnIj 01-18 00:00: 00 04-30 00:00 :00 No [id number] 104 INJECT 140 MG UNDER THE SKIN EVERY 2 (TWO) WEEKS. [facility] furosemide 40 mg tablet 01-08 00:00: 03-12 00:00 :00 No [id number] 40mg Take 1 tablet by mouth 2 (two) times daily as needed. [facility] furosemide 40 mg tablet 12-25 00:00: 00 01-08 00:00 :00 No [id number] 40mg Take 1 tablet by mouth 3 (three) times daily as needed (swelling) . [facility] metFORMIN 500 mg tablet 12-24 00:00: 00 03-12 00:00 :00 No [id number] TAKE 1 TABLET BY MOUTH IN THE MORNING AND IN THE EVENING WITH MEALS [facility] carvediloL 3.125 mg tablet 816 00:00: 00 05-31 00:00 :00 No [id number] 3.125mg Take 1 tablet by mouth in the morning and 1 tablet in the evening. Take with meals. [facility] furosemide (LASIX) 20 mg tablet 12-03 00:00: 00 01-08 00:00 :00 No [id number] 20mg Take 1 tablet by mouth 2 (two) times daily as needed (Swelling) . [facility] losartan 50 mg tablet 11-25 00:00: 00 01-29 00:00 :00 No [id number] 50mg Take 1 tablet by mouth in the morning and 1 tablet in the evening. [facility] atorvastati n 40 mg tablet 11-25 00:00: 00 01-25 00:00 :00 No [id number] 104 40mg Take 1 tablet by mouth at bedtime. [facility] evolocumab (REPATHA SURECLICK) 140 mg/mL PnIj 11-25 00:00: 00 01-18 00:00 :00 No [id number] 104 Inject 1 ml subcutaneo usly q [address] [facility] evolocumab (REPATHA SURECLICK) 140 mg/mL PnIj 11-11 00:00: 00 11-25 00:00 :00 No [id number] 104 Inject 1 ml subcutaneo usly q [address] [facility] atorvastati n 80 mg tablet 11-11 00:00: 00 11-25 00:00 :00 No Take [address] [facility] semaglutide , weight loss, 0.25 mg/0.5 mL PnIj SC injection 09-08 00:00: 00 01-08 00:00 :00 No [id number] .25mg inject 0.25 mg under the skin weekly. [facility] metFORMIN 500 mg tablet 09-08 00:00: 00 12-24 00:00 :00 No [id number] 500mg Take 1 tablet by mouth in the morning. [facility] NIFEDIPINE XL 30 mg 24 hr tablet 4-28 00:00: 00 09-01 00:00 :00 No [id number] TAKE 1 TABLET BY MOUTH IN THE MORNING AND 1 TABLET IN THE EVENING. DO ALL THIS FOR [address] [facility] mirabegron (MYRBETRIQ) 50 mg tablet 07-07 00:00: 01-08 00:00 :00 No [id number] TAKE 1 TABLET BY MOUTH EVERY DAY IN THE MORNING [facility] LOSARTAN 50 mg tablet 3 00:00: 00 11-25 00:00 :00 No [id number] 50mg TAKE 1 TABLET BY MOUTH IN THE MORNING AND 1 TABLET IN THE EVENING. [facility] ATORVASTATI N 80 mg tablet 07-03 00:00: 00 11-11 00:00 :00 No TAKE 1 TABLET BY MOUTH EVERYDAY AT BEDTIME [facility] metFORMIN 500 mg tablet 07-01 00:00: 00 09-08 00:00 :00 No [id number] 500mg Take 1 tablet by mouth in the morning and 1 tablet in the evening. Take with meals. [facility] SAXENDA 3 mg/0.5 mL (18 mg/3 mL) [facility] 06-25 00:00: 00 07-03 00:00 :00 No [id number] INJECT 0.6MG SUBCUTANEO USLY EVERY MORNING. INCREASE AT WEEKLY INTERVALS UNTIL TARGET DOSE OF 3MG [facility] liraglutide , weight loss, 3 mg/0.5 mL (18 mg/3 mL) [facility] 06-24 00:00: 00 Yes [id number] .6mg inject 0.6 mg under the skin in the morning. Increase by 0.6 mg at weekly intervals until a target dose of [address] [facility] naltrexone- bupropion (CONTRAVE) 8-90 mg per tablet 2- 00:00: 00 06-24 00:00 :00 No [id number] Take one tablet by mouth in the morning for week 1, then one tablet twice a day for week [address] [facility] NIFEdipine XL 30 mg 24 hr tablet 1-21 00:00: 00 08-28 00:00 :00 No 30mg Take 1 tablet by mouth in the morning and 1 tablet in the evening. [facility] semaglutide , weight loss, 0.25 mg/0.5 mL PnIj SC injection 2021-05 2-05 00:00: 00 06-08 00:00 :00 No [id number] .25mg inject 0.25 mg under the skin weekly. Weeks 5 through 8 inject 0.5 mg under the skin weekly [facility] losartan 50 mg tablet 2021-05 0-25 00:00: 00 07-06 00:00 :00 No [id number] 50mg Take 1 tablet by mouth in the morning and 1 tablet in the evening. [facility] METFORMIN 500 mg tablet 9-14 00:00: 00 06-08 00:00 :00 No [id number] TAKE 1 TABLET BY MOUTH TWICE A DAY WITH MEALS [facility] ATORVASTATI N 80 mg tablet - 00:00: 00 07-03 00:00 :00 No TAKE 1 TABLET BY MOUTH EVERYDAY AT BEDTIME [facility] mirabegron (MYRBETRIQ) 50 mg tablet 8- 00:00: 00 07-07 00:00 :00 No [id number] 50mg Take 1 tablet by mouth in the morning. [facility] evolocumab (REPATHA SURECLICK) 140 mg/mL PnIj 7-28 00:00: 00 11-11 00:00 :00 No [id number] 104 140mg inject 140 mg under the skin every 2 (two) weeks. [facility] NIFEdipine XL 30 mg 24 hr tablet -25 00:00: 00 02-23 04:59 :00 No [id number] 104 30mg Take 1 tablet by mouth in the morning and 1 tablet in the evening. Do all this for [address] [facility] losartan 50 mg tablet 5-02 00:00: 00 02-24 00:00 :00 No [id number] 50mg Take 1 tablet by mouth 2 (two) times daily. [facility] mv-mn/iron/ folic acid/herb 190 (VITAMIN D3 COMPLETE ORAL) 4- 10:15: 42 Yes 2000mg Take 2,000 mg by mouth daily. [facility] EZETIMIBE 10 mg tablet 4-11 00:00: 00 11-25 00:00 :00 No TAKE 1 TABLET BY MOUTH EVERY DAY [facility] trospium 20 mg tablet 2- 00:00: 00 10-28 00:00 :00 No [id number] 20mg Take 1 tablet by mouth 2 (two) times daily. [facility] Cholecalcif perfecto, Vitamin D3, (D3-2000) 50 mcg (2,000 unit) capsule 2020-05 00:00: 00 Yes [id number] 2000U Take 1 capsule by mouth daily. Take with food. [facility] atorvastati n (LIPITOR) 80 mg tablet 2020-05 09:56: 06 02-18 00:00 :00 No 80mg Take 80 mg by mouth at bedtime. [facility] icosapent ethyL (VASCEPA) 1 gram capsule 2020-05 00:00: 00 01-26 00:00 :00 No [id number] 2g Take 2 capsules by mouth 2 (two) times daily. [facility] NIFEdipine XL (PROCARDIA XL) 30 mg 24 hr tablet 2020-05 10:40: 45 02-11 00:00 :00 No 30mg Take 30 mg by mouth 2 (two) times daily. [facility] METFORMIN 500 mg tablet 2020-05 0 00:00: 00 07-24 00:00 :00 No [id number] TAKE 1 TABLET BY MOUTH TWICE A DAY WITH MEALS [facility] icosapent ethyL (VASCEPA) 1 gram capsule 01-22 00:00: 00 02-18 00:00 :00 No 2g Take 2 capsules by mouth 2 (two) times daily. [facility] ezetimibe 10 mg tablet -24 00:00: 00 04-16 00:00 :00 No 10mg Take 1 tablet by mouth daily. [facility] metFORMIN 500 mg tablet -20 00:00: 00 02-10 00:00 :00 No [id number] 500mg Take 1 tablet by mouth 2 (two) times daily with meals. [facility] losartan 50 mg tablet 2019-05 00:00: 00 09-01 00:00 :00 No [id number] 50mg Take 1 tablet by mouth 2 (two) times daily. [facility] Incontinenc e Pad, Liner, Disp Pads 2018-05 00:00: 00 Yes [id number] Use as directed; ICD-10 DIAGNOSIS CODE R32 [facility] Diaper,Brie f, Adult,Dispo sable (WINGS XXL ADULT BRIEF) [facility] [place]-05 00:00: 00 Yes [id number] Use as directed; ICD-[address] [facility] Diaper,Brie f, Adult,Dispo sable (WINGS XXL ADULT BRIEF[place] [facility] [place]: 00 Yes [id number] Use as directed; ICD-[address] [facility] Incontinenc e Pad, Liner, Disp Pads 2018-05 00:00: 00 Yes [id number] Use as directed; ICD-[address] [facility] Immunizations Ordered Immunization Name Filled Immunization Name Date Status Comments Source Pneumococcal 20 Conjugate, PCV20 (Prevnar 20) 2022-09-08 00:00:00 Completed [facility] Pneumococcal 20 Conjugate, PCV20 (Prevnar 20) 2022-09-08 00:00:00 Completed [facility] Pneumococcal 20 Conjugate, PCV20 (Prevnar 20) 2022-09-08 00:00:00 Completed [facility] Pneumococcal 20 Conjugate, PCV20 (Prevnar 20) 2022-09-08 00:00:00 Completed [facility] Pneumococcal 20 Conjugate, PCV20 (Prevnar 20) 2022-09-08 00:00:00 Completed [facility] Pneumococcal 20 Conjugate, PCV20 (Prevnar 20) 2022-09-08 00:00:00 Completed [facility] Pneumococcal 20 Conjugate, PCV20 (Prevnar 20) 2022-09-08 00:00:00 Completed [facility] Pneumococcal 20 Conjugate, PCV20 (Prevnar 20) 2022-09-08 00:00:00 Completed [facility] Pneumococcal 20 Conjugate, PCV20 (Prevnar 20) 2022-09-08 00:00:00 Completed [facility] Pneumococcal 20 Conjugate, PCV20 (Prevnar 20) 2022-09-08 00:00:00 Completed [facility] Pneumococcal 20 Conjugate, PCV20 (Prevnar 20) 2022-09-08 00:00:00 Completed [facility] Pneumococcal 20 Conjugate, PCV20 (Prevnar 20) 2022-09-08 00:00:00 Completed [facility] Pneumococcal 20 Conjugate, PCV20 (Prevnar 20) 2022-09-08 00:00:00 Completed [facility] Pneumococcal 20 Conjugate, PCV20 (Prevnar 20) 2022-09-08 00:00:00 Completed [facility] Pneumococcal 20 Conjugate, PCV20 (Prevnar 20) 2022-09-08 00:00:00 Completed [facility] Pneumococcal 20 Conjugate, PCV20 (Prevnar 20) 2022-09-08 00:00:00 Completed [facility] Pneumococcal 20 Conjugate, PCV20 (Prevnar 20) 2022-09-08 00:00:00 Completed [facility] Pneumococcal 20 Conjugate, PCV20 (Prevnar 20) 2022-09-08 00:00:00 Completed [facility] Pneumococcal 20 Conjugate, PCV20 (Prevnar 20) 2022-09-08 00:00:00 Completed [facility] Pneumococcal 20 Conjugate, PCV20 (Prevnar 20) 2022-09-08 00:00:00 Completed [facility] Pneumococcal 20 Conjugate, PCV20 (Prevnar 20) 2022-09-08 00:00:00 Completed [facility] Pneumococcal 20 Conjugate, PCV20 (Prevnar 20) 2022-09-08 00:00:00 Completed [facility] Pneumococcal 20 Conjugate, PCV20 (Prevnar 20) 2022-09-08 00:00:00 Completed [facility] Pneumococcal 20 Conjugate, PCV20 (Prevnar 20) 2022-09-08 00:00:00 Completed [facility] Pneumococcal 20 Conjugate, PCV20 (Prevnar 20) 2022-09-08 00:00:00 Completed [facility] Pneumococcal 20 Conjugate, PCV20 (Prevnar 20) 2022-09-08 00:00:00 Completed [facility] Pneumococcal 20 Conjugate, PCV20 (Prevnar 20) 2022-09-08 00:00:00 Completed [facility] Pneumococcal 20 Conjugate, PCV20 (Prevnar 20) 2022-09-08 00:00:00 Completed [facility] Pneumococcal 20 Conjugate, PCV20 (Prevnar 20) 2022-09-08 00:00:00 Completed [facility] Pneumococcal 20 Conjugate, PCV20 (Prevnar 20) 2022-09-08 00:00:00 Completed [facility] Pneumococcal 20 Conjugate, PCV20 (Prevnar 20) 2022-09-08 00:00:00 Completed [facility] Pneumococcal 20 Conjugate, PCV20 (Prevnar 20) 2022-09-08 00:00:00 Completed [facility] Pneumococcal 20 Conjugate, PCV20 (Prevnar 20) 2022-09-08 00:00:00 Completed [facility] Pneumococcal 20 Conjugate, PCV20 (Prevnar 20) 2022-09-08 00:00:00 Completed [facility] Pneumococcal 20 Conjugate, PCV20 (Prevnar 20) 2022-09-08 00:00:00 Completed [facility] Pneumococcal 20 Conjugate, PCV20 (Prevnar 20) 2022-09-08 00:00:00 Completed [facility] Pneumococcal 20 Conjugate, PCV20 (Prevnar 20) 2022-09-08 00:00:00 Completed [facility] Pneumococcal 20 Conjugate, PCV20 (Prevnar 20) 2022-09-08 00:00:00 Completed [facility] Pneumococcal 20 Conjugate, PCV20 (Prevnar 20) 2022-09-08 00:00:00 Completed [facility] Pneumococcal 20 Conjugate, PCV20 (Prevnar 20) 2022-09-08 00:00:00 Completed [facility] Pneumococcal 20 Conjugate, PCV20 (Prevnar 20) 2022-09-08 00:00:00 Completed [facility] Pneumococcal 20 Conjugate, PCV20 (Prevnar 20) 2022-09-08 00:00:00 Completed [facility] Pneumococcal 20 Conjugate, PCV20 (Prevnar 20) 2022-09-08 00:00:00 Completed [facility] Pneumococcal 20 Conjugate, PCV20 (Prevnar 20) 2022-09-08 00:00:00 Completed [facility] Influenza Virus Vaccine,quad Im,preserve Free 65+ 2022-01-26 00:00:00 Completed [facility] SARS-COV-2 COVID-19 CLARISSA-SUCROSE VACCINE 12 YRS+, BIVALENT 0.3ML, IM, (PFIZER MEZA TOP BOOSTER) 2022-01-26 00:00:00 Completed [facility] Influenza Virus Vaccine,quad Im,preserve Free 65+ 2022-01-26 00:00:00 Completed [facility] SARS-COV-2 COVID-19 CLARISSA-SUCROSE VACCINE 12 YRS+, BIVALENT 0.3ML, IM, (PFIZER MEZA TOP BOOSTER) 2022-01-26 00:00:00 Completed [facility] Influenza Virus Vaccine,quad Im,preserve Free 65+ 2022-01-26 00:00:00 Completed [facility] SARS-COV-2 COVID-19 CLARISSA-SUCROSE VACCINE 12 YRS+, BIVALENT 0.3ML, IM, (PFIZER MEZA TOP BOOSTER) 2022-01-26 00:00:00 Completed [facility] Influenza Virus Vaccine,quad Im,preserve Free 65+ 2022-01-26 00:00:00 Completed [facility] SARS-COV-2 COVID-19 CLARISSA-SUCROSE VACCINE 12 YRS+, BIVALENT 0.3ML, IM, (PFIZER MEZA TOP BOOSTER) 2022-01-26 00:00:00 Completed [facility] Influenza Virus Vaccine,quad Im,preserve Free 65+ 2022-01-26 00:00:00 Completed [facility] SARS-COV-2 COVID-19 CLARISSA-SUCROSE VACCINE 12 YRS+, BIVALENT 0.3ML, IM, (PFIZER MEZA TOP BOOSTER) 2022-01-26 00:00:00 Completed [facility] Influenza Virus Vaccine,quad Im,preserve Free 65+ 2022-01-26 00:00:00 Completed [facility] SARS-COV-2 COVID-19 CLARISSA-SUCROSE VACCINE 12 YRS+, BIVALENT 0.3ML, IM, (PFIZER MEZA TOP BOOSTER) 2022-01-26 00:00:00 Completed [facility] Influenza Virus Vaccine,quad Im,preserve Free 65+ 2022-01-26 00:00:00 Completed [facility] SARS-COV-2 COVID-19 CLARISSA-SUCROSE VACCINE 12 YRS+, BIVALENT 0.3ML, IM, (PFIZER MEZA TOP BOOSTER) 2022-01-26 00:00:00 Completed [facility] Influenza Virus Vaccine,quad Im,preserve Free 65+ 2022-01-26 00:00:00 Completed [facility] SARS-COV-2 COVID-19 CLARISSA-SUCROSE VACCINE 12 YRS+, BIVALENT 0.3ML, IM, (PFIZER MEZA TOP BOOSTER) 2022-01-26 00:00:00 Completed [facility] Influenza Virus Vaccine,quad Im,preserve Free 65+ 2022-01-26 00:00:00 Completed [facility] SARS-COV-2 COVID-19 CLARISSA-SUCROSE VACCINE 12 YRS+, BIVALENT 0.3ML, IM, (PFIZER MEZA TOP BOOSTER) 2022-01-26 00:00:00 Completed [facility] Influenza Virus Vaccine,quad Im,preserve Free 65+ 2022-01-26 00:00:00 Completed [facility] SARS-COV-2 COVID-19 CLARISSA-SUCROSE VACCINE 12 YRS+, BIVALENT 0.3ML, IM, (PFIZER MEZA TOP BOOSTER) 2022-01-26 00:00:00 Completed [facility] Influenza Virus Vaccine,quad Im,preserve Free 65+ 2022-01-26 00:00:00 Completed [facility] SARS-COV-2 COVID-19 CLARISSA-SUCROSE VACCINE 12 YRS+, BIVALENT 0.3ML, IM, (PFIZER MEZA TOP BOOSTER) 2022-01-26 00:00:00 Completed [facility] Influenza Virus Vaccine,quad Im,preserve Free 65+ 2022-01-26 00:00:00 Completed [facility] SARS-COV-2 COVID-19 CLARISSA-SUCROSE VACCINE 12 YRS+, BIVALENT 0.3ML, IM, (PFIZER MEZA TOP BOOSTER) 2022-01-26 00:00:00 Completed [facility] Influenza Virus Vaccine,quad Im,preserve Free 65+ 2022-01-26 00:00:00 Completed [facility] SARS-COV-2 COVID-19 CLARISSA-SUCROSE VACCINE 12 YRS+, BIVALENT 0.3ML, IM, (PFIZER MEZA TOP BOOSTER) 2022-01-26 00:00:00 Completed [facility] Influenza Virus Vaccine,quad Im,preserve Free 65+ 2022-01-26 00:00:00 Completed [facility] SARS-COV-2 COVID-19 CLARISSA-SUCROSE VACCINE 12 YRS+, BIVALENT 0.3ML, IM, (PFIZER MEZA TOP BOOSTER) 2022-01-26 00:00:00 Completed [facility] Influenza Virus Vaccine,quad Im,preserve Free 65+ 2022-01-26 00:00:00 Completed [facility] SARS-COV-2 COVID-19 CLARISSA-SUCROSE VACCINE 12 YRS+, BIVALENT 0.3ML, IM, (PFIZER MEZA TOP BOOSTER) 2022-01-26 00:00:00 Completed [facility] Influenza Virus Vaccine,quad Im,preserve Free 652022-01-26 00:00:00 Completed [facility] SARS-COV-2 COVID-19 CLARISSA-SUCROSE VACCINE 12 YRS+, BIVALENT 0.3ML, IM, (PFIZER MEZA TOP BOOSTER) 2022-01-26 00:00:00 Completed [facility] Influenza Virus Vaccine,quad Im,preserve Free 652022-01-26 00:00:00 Completed [facility] SARS-COV-2 COVID-19 CLARISSA-SUCROSE VACCINE 12 YRS+, BIVALENT 0.3ML, IM, (PFIZER MEZA TOP BOOSTER) 2022-01-26 00:00:00 Completed [facility] Influenza Virus Vaccine,quad Im,preserve Free 652022-01-26 00:00:00 Completed [facility] SARS-COV-2 COVID-19 CLARISSA-SUCROSE VACCINE 12 YRS+, BIVALENT 0.3ML, IM, (PFIZER MEZA TOP BOOSTER) 2022-01-26 00:00:00 Completed [facility] Influenza Virus Vaccine,quad Im,preserve Free 65+ 2022-01-26 00:00:00 Completed [facility] SARS-COV-2 COVID-19 CLARISSA-SUCROSE VACCINE 12 YRS+, BIVALENT 0.3ML, IM, (PFIZER MEZA TOP BOOSTER) 2022-01-26 00:00:00 Completed [facility] Influenza Virus Vaccine,quad Im,preserve Free 65+ 2022-01-26 00:00:00 Completed [facility] SARS-COV-2 COVID-19 CLARISSA-SUCROSE VACCINE 12 YRS+, BIVALENT 0.3ML, IM, (PFIZER MEZA TOP BOOSTER) 2022-01-26 00:00:00 Completed [facility] Influenza Virus Vaccine,quad Im,preserve Free 65+ 2022-01-26 00:00:00 Completed [facility] SARS-COV-2 COVID-19 CLARISSA-SUCROSE VACCINE 12 YRS+, BIVALENT 0.3ML, IM, (PFIZER MEZA TOP BOOSTER) 2022-01-26 00:00:00 Completed [facility] Influenza Virus Vaccine,quad Im,preserve Free 65+ 2022-01-26 00:00:00 Completed [facility] SARS-COV-2 COVID-19 CLARISSA-SUCROSE VACCINE 12 YRS+, BIVALENT 0.3ML, IM, (PFIZER MEZA TOP BOOSTER) 2022-01-26 00:00:00 Completed [facility] Influenza Virus Vaccine,quad Im,preserve Free 65+ 2022-01-26 00:00:00 Completed [facility] SARS-COV-2 COVID-19 CLARISSA-SUCROSE VACCINE 12 YRS+, BIVALENT 0.3ML, IM, (PFIZER MEZA TOP BOOSTER) 2022-01-26 00:00:00 Completed [facility] Influenza Virus Vaccine,quad Im,preserve Free 65+ 2022-01-26 00:00:00 Completed [facility] SARS-COV-2 COVID-19 CLARISSA-SUCROSE VACCINE 12 YRS+, BIVALENT 0.3ML, IM, (PFIZER MEZA TOP BOOSTER) 2022-01-26 00:00:00 Completed [facility] Influenza Virus Vaccine,quad Im,preserve Free 65+ 2022-01-26 00:00:00 Completed [facility] SARS-COV-2 COVID-19 CLARISSA-SUCROSE VACCINE 12 YRS+, BIVALENT 0.3ML, IM, (PFIZER MEZA TOP BOOSTER) 2022-01-26 00:00:00 Completed [facility] Influenza Virus Vaccine,quad Im,preserve Free 65+ 2022-01-26 00:00:00 Completed [facility] SARS-COV-2 COVID-19 CLARISSA-SUCROSE VACCINE 12 YRS+, BIVALENT 0.3ML, IM, (PFIZER MEZA TOP BOOSTER) 2022-01-26 00:00:00 Completed [facility] Influenza Virus Vaccine,quad Im,preserve Free 65+ 2022-01-26 00:00:00 Completed [facility] SARS-COV-2 COVID-19 CLARISSA-SUCROSE VACCINE 12 YRS+, BIVALENT 0.3ML, IM, (PFIZER MEZA TOP BOOSTER) 2022-01-26 00:00:00 Completed [facility] Influenza Virus Vaccine,quad Im,preserve Free 65+ 2022-01-26 00:00:00 Completed [facility] SARS-COV-2 COVID-19 CLARISSA-SUCROSE VACCINE 12 YRS+, BIVALENT 0.3ML, IM, (PFIZER MZEA TOP BOOSTER) 2022-01-26 00:00:00 Completed [facility] Influenza Virus Vaccine,quad Im,preserve Free 65+ 2022-01-26 00:00:00 Completed [facility] SARS-COV-2 COVID-19 CLARISSA-SUCROSE VACCINE 12 YRS+, BIVALENT 0.3ML, IM, (PFIZER MEZA TOP BOOSTER) 2022-01-26 00:00:00 Completed [facility] Influenza Virus Vaccine,quad Im,preserve Free 65+ 2022-01-26 00:00:00 Completed [facility] SARS-COV-2 COVID-19 CLARISSA-SUCROSE VACCINE 12 YRS+, BIVALENT 0.3ML, IM, (PFIZER MEZA TOP BOOSTER) 2022-01-26 00:00:00 Completed [facility] Influenza Virus Vaccine,quad Im,preserve Free 65+ 2022-01-26 00:00:00 Completed [facility] SARS-COV-2 COVID-19 CLARISSA-SUCROSE VACCINE 12 YRS+, BIVALENT 0.3ML, IM, (PFIZER MEZA TOP BOOSTER) 2022-01-26 00:00:00 Completed [facility] Influenza Virus Vaccine,quad Im,preserve Free 65+ 2022-01-26 00:00:00 Completed [facility] SARS-COV-2 COVID-19 CLARISSA-SUCROSE VACCINE 12 YRS+, BIVALENT 0.3ML, IM, (PFIZER MEZA TOP BOOSTER) 2022-01-26 00:00:00 Completed [facility] Influenza Virus Vaccine,quad Im,preserve Free 65+ 2022-01-26 00:00:00 Completed [facility] SARS-COV-2 COVID-19 CLARISSA-SUCROSE VACCINE 12 YRS+, BIVALENT 0.3ML, IM, (PFIZER MEZA TOP BOOSTER) 2022-01-26 00:00:00 Completed [facility] Influenza Virus Vaccine,quad Im,preserve Free 65+ 2022-01-26 00:00:00 Completed [facility] SARS-COV-2 COVID-19 CLARISSA-SUCROSE VACCINE 12 YRS+, BIVALENT 0.3ML, IM, (PFIZER MEZA TOP BOOSTER) 2022-01-26 00:00:00 Completed [facility] Influenza Virus Vaccine,quad Im,preserve Free 65+ 2022-01-26 00:00:00 Completed [facility] SARS-COV-2 COVID-19 CLARISSA-SUCROSE VACCINE 12 YRS+, BIVALENT 0.3ML, IM, (PFIZER MEZA TOP BOOSTER) 2022-01-26 00:00:00 Completed [facility] Influenza Virus Vaccine,quad Im,preserve Free 65+ 2022-01-26 00:00:00 Completed [facility] SARS-COV-2 COVID-19 CLARISSA-SUCROSE VACCINE 12 YRS+, BIVALENT 0.3ML, IM, (PFIZER MEZA TOP BOOSTER) 2022-01-26 00:00:00 Completed [facility] Influenza Virus Vaccine,quad Im,preserve Free 65+ 2022-01-26 00:00:00 Completed [facility] SARS-COV-2 COVID-19 CLARISSA-SUCROSE VACCINE 12 YRS+, BIVALENT 0.3ML, IM, (PFIZER MEZA TOP BOOSTER) 2022-01-26 00:00:00 Completed [facility] Influenza Virus Vaccine,quad Im,preserve Free 65+ 2022-01-26 00:00:00 Completed [facility] SARS-COV-2 COVID-19 CLARISSA-SUCROSE VACCINE 12 YRS+, BIVALENT 0.3ML, IM, (PFIZER MEZA TOP BOOSTER) 2022-01-26 00:00:00 Completed [facility] Influenza Virus Vaccine,quad Im,preserve Free 65+ 2022-01-26 00:00:00 Completed [facility] SARS-COV-2 COVID-19 CLARISSA-SUCROSE VACCINE 12 YRS+, BIVALENT 0.3ML, IM, (PFIZER MEZA TOP BOOSTER) 2022-01-26 00:00:00 Completed [facility] Influenza Virus Vaccine,quad Im,preserve Free 65+ 2022-01-26 00:00:00 Completed [facility] SARS-COV-2 COVID-19 CLARISSA-SUCROSE VACCINE 12 YRS+, BIVALENT 0.3ML, IM, (PFIZER MEZA TOP) 2022-01-26 00:00:00 Completed [facility] Influenza Virus Vaccine,quad Im,preserve Free 65+ 2022-01-26 00:00:00 Completed [facility] SARS-COV-2 COVID-19 CLARISSA-SUCROSE VACCINE 12 YRS+, BIVALENT 0.3ML, IM, (PFIZER MEZA TOP) 2022-01-26 00:00:00 Completed [facility] Influenza Virus Vaccine,quad Im,preserve Free 65+ 2022-01-26 00:00:00 Completed [facility] SARS-COV-2 COVID-19 CLARISSA-SUCROSE VACCINE 12 YRS+, BIVALENT 0.3ML, IM, (PFIZER MEZA TOP) 2022-01-26 00:00:00 Completed [facility] Influenza Virus Vaccine,quad Im,preserve Free 65+ 2022-01-26 00:00:00 Completed [facility] SARS-COV-2 COVID-19 CLARISSA-SUCROSE VACCINE 12 YRS+, BIVALENT 0.3ML, IM, (PFIZER MEZA TOP) 2022-01-26 00:00:00 Completed [facility] Influenza Virus Vaccine,quad Im,preserve Free 65+ 2022-01-26 00:00:00 Completed [facility] SARS-COV-2 COVID-19 CLARISSA-SUCROSE VACCINE 12 YRS+, BIVALENT 0.3ML, IM, (PFIZER MEZA TOP) 2022-01-26 00:00:00 Completed [facility] Influenza Virus Vaccine,quad Im,preserve Free 65+ 2022-01-26 00:00:00 Completed [facility] SARS-COV-2 COVID-19 CLARISSA-SUCROSE VACCINE 12 YRS+, BIVALENT 0.3ML, IM, (PFIZER MEZA TOP) 2022-01-26 00:00:00 Completed [facility] Influenza Virus Vaccine,quad Im,preserve Free 65+ 2022-01-26 00:00:00 Completed [facility] SARS-COV-2 COVID-19 CLARISSA-SUCROSE VACCINE 12 YRS+, BIVALENT 0.3ML, IM, (PFIZER MEZA TOP) 2022-01-26 00:00:00 Completed [facility] Influenza Virus Vaccine,quad Im,preserve Free 65+ 2022-01-26 00:00:00 Completed [facility] SARS-COV-2 COVID-19 CLARISSA-SUCROSE VACCINE 12 YRS+, BIVALENT 0.3ML, IM, (PFIZER MEZA TOP) 2022-01-26 00:00:00 Completed [facility] Influenza Virus Vaccine,quad Im,preserve Free 65+ 2022-01-26 00:00:00 Completed [facility] SARS-COV-2 COVID-19 CLARISSA-SUCROSE VACCINE 12 YRS+, BIVALENT 0.3ML, IM, (PFIZER MEZA TOP) 2022-01-26 00:00:00 Completed [facility] Influenza Virus Vaccine,quad Im,preserve Free 65+ 2022-01-26 00:00:00 Completed [facility] SARS-COV-2 COVID-19 CLARISSA-SUCROSE VACCINE 12 YRS+, BIVALENT 0.3ML, IM, (PFIZER MEZA TOP) 2022-01-26 00:00:00 Completed [facility] Influenza Virus Vaccine,quad Im,preserve Free 652022-01-26 00:00:00 Completed [facility] SARS-COV-2 COVID-19 CLARISSA-SUCROSE VACCINE 12 YRS+, BIVALENT 0.3ML, IM, (PFIZER MEZA TOP) 2022-01-26 00:00:00 Completed [facility] Influenza Virus Vaccine,quad Im,preserve Free 65+ 2022-01-26 00:00:00 Completed [facility] SARS-COV-2 COVID-19 CLARISSA-SUCROSE VACCINE 12 YRS+, BIVALENT 0.3ML, IM, (PFIZER MEZA TOP) 2022-01-26 00:00:00 Completed [facility] Influenza Virus Vaccine,quad Im,preserve Free 65+ 2022-01-26 00:00:00 Completed [facility] SARS-COV-2 COVID-19 CLARISSA-SUCROSE VACCINE 12 YRS+, BIVALENT 0.3ML, IM, (PFIZER MEZA TOP) 2022-01-26 00:00:00 Completed [facility] Influenza Virus Vaccine,quad Im,preserve Free 65+ 2022-01-26 00:00:00 Completed [facility] SARS-COV-2 COVID-19 CLARISSA-SUCROSE VACCINE 12 YRS+, BIVALENT 0.3ML, IM, (PFIZER MEZA [facility]) 2022-01-26 00:00:00 Completed [facility] Influenza Virus Vaccine,quad Im,preserve Free 65+ 2022-01-26 00:00:00 Completed [facility] SARS-COV-2 COVID-19 CLARISSA-SUCROSE VACCINE 12 YRS+, BIVALENT 0.3ML, IM, (PFIZER MEZA TOP) 2022-01-26 00:00:00 Completed [facility] Influenza Virus Vaccine,quad Im,preserve Free 65+ 2022-01-26 00:00:00 Completed [facility] SARS-COV-2 COVID-19 CLARISSA-SUCROSE VACCINE 12 YRS+, BIVALENT 0.3ML, IM, ([facility]) 2022-01-26 00:00:00 Completed [facility] Influenza Virus Vaccine,quad Im,preserve Free 65+ 2022-01-26 00:00:00 Completed [facility] SARS-COV-2 COVID-19 CLARISSA-SUCROSE VACCINE 12 YRS+, BIVALENT 0.3ML, IM, (PFIZER MEZA [facility]) 2022-01-26 00:00:00 Completed [facility] Influenza Virus Vaccine,quad Im,preserve Free 65+ 2022-01-26 00:00:00 Completed [facility] SARS-COV-2 COVID-19 CLARISSA-SUCROSE VACCINE 12 YRS+, BIVALENT 0.3ML, IM, ([employer] MEZA [facility]) 2022-01-26 00:00:00 Completed [facility] Influenza Virus Vaccine,quad Im,preserve Free 65+ 2022-01-26 00:00:00 Completed [facility] SARS-COV-2 COVID-19 CLARISSA-SUCROSE VACCINE 12 YRS+, BIVALENT 0.3ML, IM, (PFIZER MEZA [facility]) 2022-01-26 00:00:00 Completed [facility] Influenza Virus Vaccine,quad Im,preserve Free 65+ 2022-01-26 00:00:00 Completed [facility] SARS-COV-2 COVID-19 CLARISSA-SUCROSE VACCINE 12 YRS+, BIVALENT 0.3ML, IM, (PFIZER MEZA TOP) 2022-01-26 00:00:00 Completed [facility] Influenza Virus Vaccine,quad Im,preserve Free 65+ 2022-01-26 00:00:00 Completed [facility] SARS-COV-2 COVID-19 CLARISSA-SUCROSE VACCINE 12 YRS+, BIVALENT 0.3ML, IM, (PFIZER MEZA TOP) 2022-01-26 00:00:00 Completed [facility] Influenza Virus Vaccine,quad Im,preserve Free 65+ 2022-01-26 00:00:00 Completed [facility] SARS-COV-2 COVID-19 CLARISSA-SUCROSE VACCINE 12 YRS+, BIVALENT 0.3ML, IM, (PFIZER MEZA TOP) 2022-01-26 00:00:00 Completed [facility] Influenza Virus Vaccine,quad Im,preserve Free 65+ 2022-01-26 00:00:00 Completed [facility] SARS-COV-2 COVID-19 CLARISSA-SUCROSE VACCINE 12 YRS+, BIVALENT 0.3ML, IM, (PFIZER MEZA TOP) 2022-01-26 00:00:00 Completed [facility] Influenza Virus Vaccine,quad Im,preserve Free 65+ 2022-01-26 00:00:00 Completed [facility] SARS-COV-2 COVID-19 CLARISSA-SUCROSE VACCINE 12 YRS+, BIVALENT 0.3ML, IM, (PFIZER MEZA TOP) 2022-01-26 00:00:00 Completed [facility] Influenza Virus Vaccine,quad Im,preserve Free 65+ 2022-01-26 00:00:00 Completed [facility] SARS-COV-2 COVID-19 CLARISSA-SUCROSE VACCINE 12 YRS+, BIVALENT 0.3ML, IM, (PFIZER MEZA TOP) 2022-01-26 00:00:00 Completed [facility] Influenza Virus Vaccine,quad Im,preserve Free 65+ 2022-01-26 00:00:00 Completed [facility] SARS-COV-2 COVID-19 CLARISSA-SUCROSE VACCINE 12 YRS+, BIVALENT 0.3ML, IM, (PFIZER MEZA TOP) 2022-01-26 00:00:00 Completed [facility] Influenza Virus Vaccine,quad Im,preserve Free 65+ 2022-01-26 00:00:00 Completed [facility] SARS-COV-2 COVID-19 CLARISSA-SUCROSE VACCINE 12 YRS+, BIVALENT 0.3ML, IM, (PFIZER MEZA TOP) 2022-01-26 00:00:00 Completed [facility] Influenza Virus Vaccine,quad Im,preserve Free 65+ 2022-01-26 00:00:00 Completed [facility] SARS-COV-2 COVID-19 CLARISSA-SUCROSE VACCINE 12 YRS+, BIVALENT 0.3ML, IM, (PFIZER MEZA TOP) 2022-01-26 00:00:00 Completed [facility] Influenza Virus Vaccine,quad Im,preserve Free 65+ 2022-01-26 00:00:00 Completed [facility] SARS-COV-2 COVID-19 CLARISSA-SUCROSE VACCINE 12 YRS+, BIVALENT 0.3ML, IM, (PFIZER MEZA TOP) 2022-01-26 00:00:00 Completed [facility] Influenza Virus Vaccine,quad Im,preserve Free 65+ 2022-01-26 00:00:00 Completed [facility] SARS-COV-2 COVID-19 CLARISSA-SUCROSE VACCINE 12 YRS+, BIVALENT 0.3ML, IM, (PFIZER MEZA TOP) 2022-01-26 00:00:00 Completed [facility] Influenza Virus Vaccine,quad Im,preserve Free 652022-01-26 00:00:00 Completed [facility] SARS-COV-2 COVID-19 CLARISSA-SUCROSE VACCINE 12 YRS+, BIVALENT 0.3ML, IM, (PFIZER MEZA TOP) 2022-01-26 00:00:00 Completed [facility] Influenza Virus Vaccine,quad Im,preserve Free 65+ 2022-01-26 00:00:00 Completed [facility] SARS-COV-2 COVID-19 CLARISSA-SUCROSE VACCINE 12 YRS+, BIVALENT 0.3ML, IM, (PFIZER MEZA TOP) 2022-01-26 00:00:00 Completed [facility] Influenza Virus Vaccine,quad Im,preserve Free 65+ 2022-01-26 00:00:00 Completed [facility] SARS-COV-2 COVID-19 CLARISSA-SUCROSE VACCINE 12 YRS+, BIVALENT 0.3ML, IM, (PFIZER MEZA TOP) 2022-01-26 00:00:00 Completed [facility] Influenza Virus Vaccine,quad Im,preserve Free 65+ 2022-01-26 00:00:00 Completed [facility] SARS-COV-2 COVID-19 CLARISSA-SUCROSE VACCINE 12 YRS+, BIVALENT 0.3ML, IM, (PFIZER MEZA [facility]) 2022-01-26 00:00:00 Completed [facility] Influenza Virus Vaccine,quad Im,preserve Free 65+ 2022-01-26 00:00:00 Completed [facility] SARS-COV-2 COVID-19 CLARISSA-SUCROSE VACCINE 12 YRS+, BIVALENT 0.3ML, IM, (PFIZER MEZA TOP) 2022-01-26 00:00:00 Completed [facility] Influenza Virus Vaccine,quad Im,preserve Free 65+ 2022-01-26 00:00:00 Completed [facility] SARS-COV-2 COVID-19 CLARISSA-SUCROSE VACCINE 12 YRS+, BIVALENT 0.3ML, IM, (Subtech [facility]) 2022-01-26 00:00:00 Completed [facility] Influenza Virus Vaccine,quad Im,preserve Free 65+ 2022-01-26 00:00:00 Completed [facility] SARS-COV-2 COVID-19 CLARISSA-SUCROSE VACCINE 12 YRS+, BIVALENT 0.3ML, IM, (PFIZER MEZA [facility]) 2022-01-26 00:00:00 Completed [facility] Influenza Virus Vaccine,quad Im,preserve Free 65+ 2022-01-26 00:00:00 Completed [facility] SARS-COV-2 COVID-19 CLARISSA-SUCROSE VACCINE 12 YRS+, BIVALENT 0.3ML, IM, (Subtech MEZA [facility]) 2022-01-26 00:00:00 Completed [facility] Influenza Virus Vaccine,quad Im,preserve Free 65+ 2022-01-26 00:00:00 Completed [facility] SARS-COV-2 COVID-19 CLARISSA-SUCROSE VACCINE 12 YRS+, BIVALENT 0.3ML, IM, (PFIZER MEZA [facility]) 2022-01-26 00:00:00 Completed [facility] Influenza Virus Vaccine,quad Im,preserve Free 65+ 2022-01-26 00:00:00 Completed [facility] SARS-COV-2 COVID-19 CLARISSA-SUCROSE VACCINE 12 YRS+, BIVALENT 0.3ML, IM, (PFIZER MEZA TOP) 2022-01-26 00:00:00 Completed [facility] Influenza Virus Vaccine,quad Im,preserve Free 65+ 2022-01-26 00:00:00 Completed [facility] SARS-COV-2 COVID-19 CLARISSA-SUCROSE VACCINE 12 YRS+, BIVALENT 0.3ML, IM, (PFIZER MEZA TOP) 2022-01-26 00:00:00 Completed [facility] Influenza Virus Vaccine,quad Im,preserve Free 65+ (FLUAD) 2022-01-26 00:00:00 Completed [facility] SARS-COV-2 COVID-19 CLARISSA-SUCROSE VACCINE 12 YRS+, BIVALENT 0.3ML, IM, (PFIZER MEZA TOP) 2022-01-26 00:00:00 Completed [facility] Influenza Virus Vaccine,quad Im,preserve Free 65+ (FLUAD) 2022-01-26 00:00:00 Completed [facility] SARS-COV-2 COVID-19 CLARISSA-SUCROSE VACCINE 12 YRS+, BIVALENT 0.3ML, IM, (PFIZER MEZA TOP) 2022-01-26 00:00:00 Completed [facility] Influenza Virus Vaccine,quad Im,preserve Free 65+ (FLUAD) 2022-01-26 00:00:00 Completed [facility] SARS-COV-2 COVID-19 CLARISSA-SUCROSE VACCINE 12 YRS+, BIVALENT 0.3ML, IM, (PFIZER MEZA TOP) 2022-01-26 00:00:00 Completed [facility] Influenza Virus Vaccine,quad Im,preserve Free 65+ (FLUAD) 2022-01-26 00:00:00 Completed [facility] SARS-COV-2 COVID-19 CLARISSA-SUCROSE VACCINE 12 YRS+, BIVALENT 0.3ML, IM, (PFIZER MEZA TOP) 2022-01-26 00:00:00 Completed [facility] Influenza Virus Vaccine,quad Im,preserve Free 65+ (FLUAD) 2022-01-26 00:00:00 Completed [facility] SARS-COV-2 COVID-19 CLARISSA-SUCROSE VACCINE 12 YRS+, BIVALENT 0.3ML, IM, (PFIZER MEZA TOP) 2022-01-26 00:00:00 Completed [facility] Influenza Virus Vaccine,quad Im,preserve Free 65+ (FLUAD) 2022-01-26 00:00:00 Completed [facility] SARS-COV-2 COVID-19 CLARISSA-SUCROSE VACCINE 12 YRS+, BIVALENT 0.3ML, IM, (PFIZER MEZA TOP) 2022-01-26 00:00:00 Completed [facility] Influenza Virus Vaccine,quad Im,preserve Free 65+ (FLUAD) 2022-01-26 00:00:00 Completed [facility] SARS-COV-2 COVID-19 CLARISSA-SUCROSE VACCINE 12 YRS+, BIVALENT 0.3ML, IM, (PFIZER MEZA TOP) 2022-01-26 00:00:00 Completed [facility] Influenza Virus Vaccine,quad Im,preserve Free 65+ 2021-04-08 00:00:00 Completed [facility] SARS-COV-2 COVID-19 PFIZER VACCINE 2021-04-08 00:00:00 Completed [facility] Influenza Virus Vaccine,quad Im,preserve Free 65+ 2021-04-08 00:00:00 Completed [facility] SARS-COV-2 COVID-19 PFIZER VACCINE 2021-04-08 00:00:00 Completed [facility] Influenza Virus Vaccine,quad Im,preserve Free 65+ 2021-04-08 00:00:00 Completed [facility] SARS-COV-2 COVID-19 PFIZER VACCINE 2021-04-08 00:00:00 Completed [facility] Influenza Virus Vaccine,quad Im,preserve Free 65+ 2021-04-08 00:00:00 Completed [facility] SARS-COV-2 COVID-19 PFIZER VACCINE 2021-04-08 00:00:00 Completed [facility] Influenza Virus Vaccine,quad Im,preserve Free 65+ 2021-04-08 00:00:00 Completed [facility] SARS-COV-2 COVID-19 PFIZER VACCINE 2021-04-08 00:00:00 Completed [facility] Influenza Virus Vaccine,quad Im,preserve Free 65+ 2021-04-08 00:00:00 Completed [facility] SARS-COV-2 COVID-19 PFIZER VACCINE 2021-04-08 00:00:00 Completed [facility] Influenza Virus Vaccine,quad Im,preserve Free 2021-04-08 00:00:00 Completed [facility] SARS-COV-2 COVID-19 PFIZER VACCINE 2021-04-08 00:00:00 Completed [facility] Influenza Virus Vaccine,quad Im,preserve Free 2021-04-08 00:00:00 Completed [facility] SARS-COV-2 COVID-19 PFIZER VACCINE 2021-04-08 00:00:00 Completed [facility] Influenza Virus Vaccine,quad Im,preserve Free 2021-04-08 00:00:00 Completed [facility] SARS-COV-2 COVID-19 PFIZER VACCINE 2021-04-08 00:00:00 Completed [facility] Influenza Virus Vaccine,quad Im,preserve Free 2021-04-08 00:00:00 Completed [facility] SARS-COV-2 COVID-19 PFIZER VACCINE 2021-04-08 00:00:00 Completed [facility] Influenza Virus Vaccine,quad Im,preserve Free 2021-04-08 00:00:00 Completed [facility] SARS-COV-2 COVID-19 PFIZER VACCINE 2021-04-08 00:00:00 Completed [facility] Influenza Virus Vaccine,quad Im,preserve Free 2021-04-08 00:00:00 Completed [facility] SARS-COV-2 COVID-19 PFIZER VACCINE 2021-04-08 00:00:00 Completed [facility] Influenza Virus Vaccine,quad Im,preserve Free 2021-04-08 00:00:00 Completed [facility] SARS-COV-2 COVID-19 PFIZER VACCINE 2021-04-08 00:00:00 Completed [facility] Influenza Virus Vaccine,quad Im,preserve Free 2021-04-08 00:00:00 Completed [facility] SARS-COV-2 COVID-19 PFIZER VACCINE 2021-04-08 00:00:00 Completed [facility] Influenza Virus Vaccine,quad Im,preserve Free 2021-04-08 00:00:00 Completed [facility] SARS-COV-2 COVID-19 PFIZER VACCINE 2021-04-08 00:00:00 Completed [facility] Influenza Virus Vaccine,quad Im,preserve Free 652021-04-08 00:00:00 Completed [facility] SARS-COV-2 COVID-19 PFIZER VACCINE 2021-04-08 00:00:00 Completed [facility] Influenza Virus Vaccine,quad Im,preserve Free 65+ 2021-04-08 00:00:00 Completed [facility] SARS-COV-2 COVID-19 PFIZER VACCINE 2021-04-08 00:00:00 Completed [facility] Influenza Virus Vaccine,quad Im,preserve Free 2021-04-08 00:00:00 Completed [facility] SARS-COV-2 COVID-19 PFIZER VACCINE 2021-04-08 00:00:00 Completed [facility] Influenza Virus Vaccine,quad Im,preserve Free 2021-04-08 00:00:00 Completed [facility] SARS-COV-2 COVID-19 PFIZER VACCINE 2021-04-08 00:00:00 Completed [facility] Influenza Virus Vaccine,quad Im,preserve Free 2021-04-08 00:00:00 Completed [facility] SARS-COV-2 COVID-19 PFIZER VACCINE 2021-04-08 00:00:00 Completed [facility] Influenza Virus Vaccine,quad Im,preserve Free 2021-04-08 00:00:00 Completed [facility] SARS-COV-2 COVID-19 PFIZER VACCINE 2021-04-08 00:00:00 Completed [facility] Influenza Virus Vaccine,quad Im,preserve Free 2021-04-08 00:00:00 Completed [facility] SARS-COV-2 COVID-19 PFIZER VACCINE 2021-04-08 00:00:00 Completed [facility] Influenza Virus Vaccine,quad Im,preserve Free 2021-04-08 00:00:00 Completed [facility] SARS-COV-2 COVID-19 PFIZER VACCINE 2021-04-08 00:00:00 Completed [facility] Influenza Virus Vaccine,quad Im,preserve Free 2021-04-08 00:00:00 Completed [facility] SARS-COV-2 COVID-19 PFIZER VACCINE 2021-04-08 00:00:00 Completed [facility] Influenza Virus Vaccine,quad Im,preserve Free 65+ 2021-04-08 00:00:00 Completed [facility] SARS-COV-2 COVID-19 PFIZER VACCINE 2021-04-08 00:00:00 Completed [facility] Influenza Virus Vaccine,quad Im,preserve Free 65+ 2021-04-08 00:00:00 Completed [facility] SARS-COV-2 COVID-19 PFIZER VACCINE 2021-04-08 00:00:00 Completed [facility] Influenza Virus Vaccine,quad Im,preserve Free 65+ 2021-04-08 00:00:00 Completed [facility] SARS-COV-2 COVID-19 PFIZER VACCINE 2021-04-08 00:00:00 Completed [facility] Influenza Virus Vaccine,quad Im,preserve Free + 2021-04-08 00:00:00 Completed [facility] SARS-COV-2 COVID-19 PFIZER VACCINE 2021-04-08 00:00:00 Completed [facility] Influenza Virus Vaccine,quad Im,preserve Free 2021-04-08 00:00:00 Completed [facility] SARS-COV-2 COVID-19 PFIZER VACCINE 2021-04-08 00:00:00 Completed [facility] Influenza Virus Vaccine,quad Im,preserve Free 2021-04-08 00:00:00 Completed [facility] SARS-COV-2 COVID-19 PFIZER VACCINE 2021-04-08 00:00:00 Completed [facility] Influenza Virus Vaccine,quad Im,preserve Free 2021-04-08 00:00:00 Completed [facility] SARS-COV-2 COVID-19 PFIZER VACCINE 2021-04-08 00:00:00 Completed [facility] Influenza Virus Vaccine,quad Im,preserve Free 2021-04-08 00:00:00 Completed [facility] SARS-COV-2 COVID-19 PFIZER VACCINE 2021-04-08 00:00:00 Completed [facility] Influenza Virus Vaccine,quad Im,preserve Free 2021-04-08 00:00:00 Completed [facility] SARS-COV-2 COVID-19 PFIZER VACCINE 2021-04-08 00:00:00 Completed [facility] Influenza Virus Vaccine,quad Im,preserve Free 2021-04-08 00:00:00 Completed [facility] SARS-COV-2 COVID-19 PFIZER VACCINE 2021-04-08 00:00:00 Completed [facility] Influenza Virus Vaccine,quad Im,preserve Free 2021-04-08 00:00:00 Completed [facility] SARS-COV-2 COVID-19 PFIZER VACCINE 2021-04-08 00:00:00 Completed [facility] Influenza Virus Vaccine,quad Im,preserve Free 2021-04-08 00:00:00 Completed [facility] SARS-COV-2 COVID-19 PFIZER VACCINE 2021-04-08 00:00:00 Completed [facility] Influenza Virus Vaccine,quad Im,preserve Free 2021-04-08 00:00:00 Completed [facility] SARS-COV-2 COVID-19 PFIZER VACCINE 2021-04-08 00:00:00 Completed [facility] Influenza Virus Vaccine,quad Im,preserve Free 2021-04-08 00:00:00 Completed [facility] SARS-COV-2 COVID-19 PFIZER VACCINE 2021-04-08 00:00:00 Completed [facility] Influenza Virus Vaccine,quad Im,preserve Free 2021-04-08 00:00:00 Completed [facility] SARS-COV-2 COVID-19 PFIZER VACCINE 2021-04-08 00:00:00 Completed [facility] Influenza Virus Vaccine,quad Im,preserve Free 2021-04-08 00:00:00 Completed [facility] SARS-COV-2 COVID-19 PFIZER VACCINE 2021-04-08 00:00:00 Completed [facility] Influenza Virus Vaccine,quad Im,preserve Free 2021-04-08 00:00:00 Completed [facility] SARS-COV-2 COVID-19 PFIZER VACCINE 2021-04-08 00:00:00 Completed [facility] Influenza Virus Vaccine,quad Im,preserve Free 2021-04-08 00:00:00 Completed [facility] SARS-COV-2 COVID-19 PFIZER VACCINE 2021-04-08 00:00:00 Completed [facility] Influenza Virus Vaccine,quad Im,preserve Free 2021-04-08 00:00:00 Completed [facility] SARS-COV-2 COVID-19 PFIZER VACCINE 2021-04-08 00:00:00 Completed [facility] Influenza Virus Vaccine,quad Im,preserve Free 2021-04-08 00:00:00 Completed [facility] SARS-COV-2 COVID-19 PFIZER VACCINE 2021-04-08 00:00:00 Completed [facility] Influenza Virus Vaccine,quad Im,preserve Free 2021-04-08 00:00:00 Completed [facility] SARS-COV-2 COVID-19 PFIZER VACCINE 2021-04-08 00:00:00 Completed [facility] Influenza Virus Vaccine,quad Im,preserve Free 2021-04-08 00:00:00 Completed [facility] SARS-COV-2 COVID-19 PFIZER VACCINE 2021-04-08 00:00:00 Completed [facility] Influenza Virus Vaccine,quad Im,preserve Free 2021-04-08 00:00:00 Completed [facility] SARS-COV-2 COVID-19 PFIZER VACCINE 2021-04-08 00:00:00 Completed [facility] Influenza Virus Vaccine,quad Im,preserve Free 2021-04-08 00:00:00 Completed [facility] SARS-COV-2 COVID-19 PFIZER VACCINE 2021-04-08 00:00:00 Completed [facility] Influenza Virus Vaccine,quad Im,preserve Free 2021-04-08 00:00:00 Completed [facility] SARS-COV-2 COVID-19 PFIZER VACCINE 2021-04-08 00:00:00 Completed [facility] Influenza Virus Vaccine,quad Im,preserve Free 2021-04-08 00:00:00 Completed [facility] SARS-COV-2 COVID-19 PFIZER VACCINE 2021-04-08 00:00:00 Completed [facility] Influenza Virus Vaccine,quad Im,preserve Free 2021-04-08 00:00:00 Completed [facility] SARS-COV-2 COVID-19 PFIZER VACCINE 2021-04-08 00:00:00 Completed [facility] Influenza Virus Vaccine,quad Im,preserve Free 2021-04-08 00:00:00 Completed [facility] SARS-COV-2 COVID-19 PFIZER VACCINE 2021-04-08 00:00:00 Completed [facility] Influenza Virus Vaccine,quad Im,preserve Free 2021-04-08 00:00:00 Completed [facility] SARS-COV-2 COVID-19 PFIZER VACCINE 2021-04-08 00:00:00 Completed [facility] Influenza Virus Vaccine,quad Im,preserve Free 2021-04-08 00:00:00 Completed [facility] SARS-COV-2 COVID-19 PFIZER VACCINE 2021-04-08 00:00:00 Completed [facility] Influenza Virus Vaccine,quad Im,preserve Free 2021-04-08 00:00:00 Completed [facility] SARS-COV-2 COVID-19 PFIZER VACCINE 2021-04-08 00:00:00 Completed [facility] Influenza Virus Vaccine,quad Im,preserve Free 2021-04-08 00:00:00 Completed [facility] SARS-COV-2 COVID-19 PFIZER VACCINE 2021-04-08 00:00:00 Completed [facility] Influenza Virus Vaccine,quad Im,preserve Free 2021-04-08 00:00:00 Completed [facility] SARS-COV-2 COVID-19 PFIZER VACCINE 2021-04-08 00:00:00 Completed [facility] Influenza Virus Vaccine,quad Im,preserve Free 2021-04-08 00:00:00 Completed [facility] SARS-COV-2 COVID-19 PFIZER VACCINE 2021-04-08 00:00:00 Completed [facility] Influenza Virus Vaccine,quad Im,preserve Free 2021-04-08 00:00:00 Completed [facility] SARS-COV-2 COVID-19 PFIZER VACCINE 2021-04-08 00:00:00 Completed [facility] Influenza Virus Vaccine,quad Im,preserve Free 2021-04-08 00:00:00 Completed [facility] SARS-COV-2 COVID-19 PFIZER VACCINE 2021-04-08 00:00:00 Completed [facility] Influenza Virus Vaccine,quad Im,preserve Free 2021-04-08 00:00:00 Completed [facility] SARS-COV-2 COVID-19 PFIZER VACCINE 2021-04-08 00:00:00 Completed [facility] Influenza Virus Vaccine,quad Im,preserve Free 2021-04-08 00:00:00 Completed [facility] SARS-COV-2 COVID-19 PFIZER VACCINE 2021-04-08 00:00:00 Completed [facility] Influenza Virus Vaccine,quad Im,preserve Free 2021-04-08 00:00:00 Completed [facility] SARS-COV-2 COVID-19 PFIZER VACCINE 2021-04-08 00:00:00 Completed [facility] Influenza Virus Vaccine,quad Im,preserve Free 2021-04-08 00:00:00 Completed [facility] SARS-COV-2 COVID-19 PFIZER VACCINE 2021-04-08 00:00:00 Completed [facility] Influenza Virus Vaccine,quad Im,preserve Free 2021-04-08 00:00:00 Completed [facility] SARS-COV-2 COVID-19 PFIZER VACCINE 2021-04-08 00:00:00 Completed [facility] Influenza Virus Vaccine,quad Im,preserve Free 2021-04-08 00:00:00 Completed [facility] SARS-COV-2 COVID-19 PFIZER VACCINE 2021-04-08 00:00:00 Completed [facility] Influenza Virus Vaccine,quad Im,preserve Free 2021-04-08 00:00:00 Completed [facility] SARS-COV-2 COVID-19 PFIZER VACCINE 2021-04-08 00:00:00 Completed [facility] Influenza Virus Vaccine,quad Im,preserve Free 2021-04-08 00:00:00 Completed [facility] SARS-COV-2 COVID-19 PFIZER VACCINE 2021-04-08 00:00:00 Completed [facility] Influenza Virus Vaccine,quad Im,preserve Free 2021-04-08 00:00:00 Completed [facility] SARS-COV-2 COVID-19 PFIZER VACCINE 2021-04-08 00:00:00 Completed [facility] Influenza Virus Vaccine,quad Im,preserve Free 2021-04-08 00:00:00 Completed [facility] SARS-COV-2 COVID-19 PFIZER VACCINE 2021-04-08 00:00:00 Completed [facility] Influenza Virus Vaccine,quad Im,preserve Free 2021-04-08 00:00:00 Completed [facility] SARS-COV-2 COVID-19 PFIZER VACCINE 2021-04-08 00:00:00 Completed [facility] Influenza Virus Vaccine,quad Im,preserve Free 2021-04-08 00:00:00 Completed [facility] SARS-COV-2 COVID-19 PFIZER VACCINE 2021-04-08 00:00:00 Completed [facility] Influenza Virus Vaccine,quad Im,preserve Free 2021-04-08 00:00:00 Completed [facility] SARS-COV-2 COVID-19 PFIZER VACCINE 2021-04-08 00:00:00 Completed [facility] Influenza Virus Vaccine,quad Im,preserve Free 2021-04-08 00:00:00 Completed [facility] SARS-COV-2 COVID-19 PFIZER VACCINE 2021-04-08 00:00:00 Completed [facility] Influenza Virus Vaccine,quad Im,preserve Free 2021-04-08 00:00:00 Completed [facility] SARS-COV-2 COVID-19 PFIZER VACCINE 2021-04-08 00:00:00 Completed [facility] Influenza Virus Vaccine,quad Im,preserve Free 2021-04-08 00:00:00 Completed [facility] SARS-COV-2 COVID-19 PFIZER VACCINE 2021-04-08 00:00:00 Completed [facility] Influenza Virus Vaccine,quad Im,preserve Free 2021-04-08 00:00:00 Completed [facility] SARS-COV-2 COVID-19 PFIZER VACCINE 2021-04-08 00:00:00 Completed [facility] Influenza Virus Vaccine,quad Im,preserve Free 2021-04-08 00:00:00 Completed [facility] SARS-COV-2 COVID-19 PFIZER VACCINE 2021-04-08 00:00:00 Completed [facility] Influenza Virus Vaccine,quad Im,preserve Free 65+ 2021-04-08 00:00:00 Completed [facility] SARS-COV-2 COVID-19 PFIZER VACCINE 2021-04-08 00:00:00 Completed [facility] Influenza Virus Vaccine,quad Im,preserve Free 65+ 2021-04-08 00:00:00 Completed [facility] SARS-COV-2 COVID-19 PFIZER VACCINE 2021-04-08 00:00:00 Completed [facility] Influenza Virus Vaccine,quad Im,preserve Free 65+ 2021-04-08 00:00:00 Completed [facility] SARS-COV-2 COVID-19 PFIZER VACCINE 2021-04-08 00:00:00 Completed [facility] Influenza Virus Vaccine,quad Im,preserve Free 65+ 2021-04-08 00:00:00 Completed [facility] SARS-COV-2 COVID-19 PFIZER VACCINE 2021-04-08 00:00:00 Completed [facility] Influenza Virus Vaccine,quad Im,preserve Free 65+ 2021-04-08 00:00:00 Completed [facility] SARS-COV-2 COVID-19 PFIZER VACCINE 2021-04-08 00:00:00 Completed [facility] Influenza Virus Vaccine,quad Im,preserve Free 65+ (FLUAD) 2021-04-08 00:00:00 Completed [facility] [place] SARS-COV-2 COVID-19 PFIZER VACCINE 2021-04-08 00:00:00 Completed [facility] Influenza Virus Vaccine,quad Im,preserve Free 65+ (FLUAD) 2021-04-08 00:00:00 Completed [facility] SARS-COV-2 COVID-19 PFIZER VACCINE 2021-04-08 00:00:00 Completed [facility] Influenza Virus Vaccine,quad Im,preserve Free 65+ (FLUAD) 2021-04-08 00:00:00 Completed [facility] SARS-COV-2 COVID-19 PFIZER VACCINE 2021-04-08 00:00:00 Completed [facility] Influenza Virus Vaccine,quad Im,preserve Free 65+ (FLUAD) 2021-04-08 00:00:00 Completed [facility] SARS-COV-2 COVID-19 PFIZER VACCINE 2021-04-08 00:00:00 Completed [facility] Influenza Virus Vaccine,quad Im,preserve Free 65+ (FLUAD) 2021-04-08 00:00:00 Completed [facility] SARS-COV-2 COVID-19 PFIZER VACCINE 2021-04-08 00:00:00 Completed [facility] Influenza Virus Vaccine,quad Im,preserve Free 65+ (FLUAD) 2021-04-08 00:00:00 Completed [facility] SARS-COV-2 COVID-19 PFIZER VACCINE 2021-04-08 00:00:00 Completed [facility] Influenza Virus Vaccine,quad Im,preserve Free 65+ (FLUAD) 2021-04-08 00:00:00 Completed [facility] SARS-COV-2 COVID-19 PFIZER VACCINE 2021-04-08 00:00:00 Completed [facility] SARS-COV-2 COVID-19 PFIZER VACCINE 2020-08-01 00:00:00 Completed [facility] SARS-COV-2 COVID-19 PFIZER VACCINE 2020-08-01 00:00:00 Completed [facility] SARS-COV-2 COVID-19 PFIZER VACCINE 2020-08-01 00:00:00 Completed [facility] SARS-COV-2 COVID-19 PFIZER VACCINE 2020-08-01 00:00:00 Completed [facility] SARS-COV-2 COVID-19 PFIZER VACCINE 2020-08-01 00:00:00 Completed [facility] SARS-COV-2 COVID-19 PFIZER VACCINE 2020-08-01 00:00:00 Completed [facility] SARS-COV-2 COVID-19 PFIZER VACCINE 2020-08-01 00:00:00 Completed [facility] SARS-COV-2 COVID-19 PFIZER VACCINE 2020-08-01 00:00:00 Completed [facility] SARS-COV-2 COVID-19 PFIZER VACCINE 2020-08-01 00:00:00 Completed [facility] SARS-COV-2 COVID-19 PFIZER VACCINE 2020-08-01 00:00:00 Completed [facility] SARS-COV-2 COVID-19 PFIZER VACCINE 2020-08-01 00:00:00 Completed [facility] SARS-COV-2 COVID-19 PFIZER VACCINE 2020-08-01 00:00:00 Completed [facility] SARS-COV-2 COVID-19 PFIZER VACCINE 2020-08-01 00:00:00 Completed [facility] SARS-COV-2 COVID-19 PFIZER VACCINE 2020-08-01 00:00:00 Completed [facility] SARS-COV-2 COVID-19 PFIZER VACCINE 2020-08-01 00:00:00 Completed [facility] SARS-COV-2 COVID-19 PFIZER VACCINE 2020-08-01 00:00:00 Completed [facility] SARS-COV-2 COVID-19 PFIZER VACCINE 2020-08-01 00:00:00 Completed [facility] SARS-COV-2 COVID-19 PFIZER VACCINE 2020-08-01 00:00:00 Completed [facility] SARS-COV-2 COVID-19 PFIZER VACCINE 2020-08-01 00:00:00 Completed [facility] SARS-COV-2 COVID-19 PFIZER VACCINE 2020-08-01 00:00:00 Completed [facility] SARS-COV-2 COVID-19 PFIZER VACCINE 2020-08-01 00:00:00 Completed [facility] SARS-COV-2 COVID-19 PFIZER VACCINE 2020-08-01 00:00:00 Completed [facility] SARS-COV-2 COVID-19 PFIZER VACCINE 2020-08-01 00:00:00 Completed [facility] SARS-COV-2 COVID-19 PFIZER VACCINE 2020-08-01 00:00:00 Completed [facility] SARS-COV-2 COVID-19 PFIZER VACCINE 2020-08-01 00:00:00 Completed [facility] SARS-COV-2 COVID-19 PFIZER VACCINE 2020-08-01 00:00:00 Completed [facility] SARS-COV-2 COVID-19 PFIZER VACCINE 2020-08-01 00:00:00 Completed [facility] SARS-COV-2 COVID-19 PFIZER VACCINE 2020-08-01 00:00:00 Completed [facility] SARS-COV-2 COVID-19 PFIZER VACCINE 2020-08-01 00:00:00 Completed [facility] SARS-COV-2 COVID-19 PFIZER VACCINE 2020-08-01 00:00:00 Completed [facility] SARS-COV-2 COVID-19 PFIZER VACCINE 2020-08-01 00:00:00 Completed [facility] SARS-COV-2 COVID-19 PFIZER VACCINE 2020-08-01 00:00:00 Completed [facility] SARS-COV-2 COVID-19 PFIZER VACCINE 2020-08-01 00:00:00 Completed [facility] SARS-COV-2 COVID-19 PFIZER VACCINE 2020-08-01 00:00:00 Completed [facility] SARS-COV-2 COVID-19 PFIZER VACCINE 2020-08-01 00:00:00 Completed [facility] SARS-COV-2 COVID-19 PFIZER VACCINE 2020-08-01 00:00:00 Completed [facility] SARS-COV-2 COVID-19 PFIZER VACCINE 2020-08-01 00:00:00 Completed [facility] SARS-COV-2 COVID-19 PFIZER VACCINE 2020-08-01 00:00:00 Completed [facility] SARS-COV-2 COVID-19 PFIZER VACCINE 2020-08-01 00:00:00 Completed [facility] SARS-COV-2 COVID-19 PFIZER VACCINE 2020-08-01 00:00:00 Completed [facility] SARS-COV-2 COVID-19 PFIZER VACCINE 2020-08-01 00:00:00 Completed [facility] SARS-COV-2 COVID-19 PFIZER VACCINE 2020-08-01 00:00:00 Completed [facility] SARS-COV-2 COVID-19 PFIZER VACCINE 2020-08-01 00:00:00 Completed [facility] SARS-COV-2 COVID-19 PFIZER VACCINE 2020-08-01 00:00:00 Completed [facility] SARS-COV-2 COVID-19 PFIZER VACCINE 2020-08-01 00:00:00 Completed [facility] SARS-COV-2 COVID-19 PFIZER VACCINE 2020-08-01 00:00:00 Completed [facility] SARS-COV-2 COVID-19 PFIZER VACCINE 2020-08-01 00:00:00 Completed [facility] SARS-COV-2 COVID-19 PFIZER VACCINE 2020-08-01 00:00:00 Completed [facility] SARS-COV-2 COVID-19 PFIZER VACCINE 2020-08-01 00:00:00 Completed [facility] SARS-COV-2 COVID-19 PFIZER VACCINE 2020-08-01 00:00:00 Completed [facility] SARS-COV-2 COVID-19 PFIZER VACCINE 2020-08-01 00:00:00 Completed [facility] SARS-COV-2 COVID-19 PFIZER VACCINE 2020-08-01 00:00:00 Completed [facility] SARS-COV-2 COVID-19 PFIZER VACCINE 2020-08-01 00:00:00 Completed [facility] SARS-COV-2 COVID-19 PFIZER VACCINE 2020-08-01 00:00:00 Completed [facility] SARS-COV-2 COVID-19 PFIZER VACCINE 2020-08-01 00:00:00 Completed [facility] SARS-COV-2 COVID-19 PFIZER VACCINE 2020-08-01 00:00:00 Completed [facility] SARS-COV-2 COVID-19 PFIZER VACCINE 2020-08-01 00:00:00 Completed [facility] SARS-COV-2 COVID-19 PFIZER VACCINE 2020-08-01 00:00:00 Completed [facility] SARS-COV-2 COVID-19 PFIZER VACCINE 2020-08-01 00:00:00 Completed [facility] SARS-COV-2 COVID-19 PFIZER VACCINE 2020-08-01 00:00:00 Completed [facility] SARS-COV-2 COVID-19 PFIZER VACCINE 2020-08-01 00:00:00 Completed [facility] SARS-COV-2 COVID-19 PFIZER VACCINE 2020-08-01 00:00:00 Completed [facility] SARS-COV-2 COVID-19 PFIZER VACCINE 2020-08-01 00:00:00 Completed [facility] SARS-COV-2 COVID-19 PFIZER VACCINE 2020-08-01 00:00:00 Completed [facility] SARS-COV-2 COVID-19 PFIZER VACCINE 2020-08-01 00:00:00 Completed [facility] SARS-COV-2 COVID-19 PFIZER VACCINE 2020-08-01 00:00:00 Completed [facility] SARS-COV-2 COVID-19 PFIZER VACCINE 2020-08-01 00:00:00 Completed [facility] SARS-COV-2 COVID-19 PFIZER VACCINE 2020-08-01 00:00:00 Completed [facility] SARS-COV-2 COVID-19 PFIZER VACCINE 2020-08-01 00:00:00 Completed [facility] SARS-COV-2 COVID-19 PFIZER VACCINE 2020-08-01 00:00:00 Completed [facility] SARS-COV-2 COVID-19 PFIZER VACCINE 2020-08-01 00:00:00 Completed [facility] SARS-COV-2 COVID-19 PFIZER VACCINE 2020-08-01 00:00:00 Completed [facility] SARS-COV-2 COVID-19 PFIZER VACCINE 2020-08-01 00:00:00 Completed [facility] SARS-COV-2 COVID-19 PFIZER VACCINE 2020-08-01 00:00:00 Completed [facility] SARS-COV-2 COVID-19 PFIZER VACCINE 2020-08-01 00:00:00 Completed [facility] SARS-COV-2 COVID-19 PFIZER VACCINE 2020-08-01 00:00:00 Completed [facility] SARS-COV-2 COVID-19 PFIZER VACCINE 2020-08-01 00:00:00 Completed [facility] SARS-COV-2 COVID-19 PFIZER VACCINE 2020-08-01 00:00:00 Completed [facility] SARS-COV-2 COVID-19 PFIZER VACCINE 2020-08-01 00:00:00 Completed [facility] SARS-COV-2 COVID-19 PFIZER VACCINE 2020-08-01 00:00:00 Completed [facility] SARS-COV-2 COVID-19 PFIZER VACCINE 2020-08-01 00:00:00 Completed [facility] SARS-COV-2 COVID-19 PFIZER VACCINE 2020-08-01 00:00:00 Completed [facility] SARS-COV-2 COVID-19 PFIZER VACCINE 2020-08-01 00:00:00 Completed [facility] SARS-COV-2 COVID-19 PFIZER VACCINE 2020-08-01 00:00:00 Completed [facility] SARS-COV-2 COVID-19 PFIZER VACCINE 2020-08-01 00:00:00 Completed [facility] SARS-COV-2 COVID-19 PFIZER VACCINE 2020-08-01 00:00:00 Completed [facility] SARS-COV-2 COVID-19 PFIZER VACCINE 2020-08-01 00:00:00 Completed [facility] SARS-COV-2 COVID-19 PFIZER VACCINE 2020-08-01 00:00:00 Completed [facility] SARS-COV-2 COVID-19 PFIZER VACCINE 2020-08-01 00:00:00 Completed [facility] SARS-COV-2 COVID-19 PFIZER VACCINE 2020-08-01 00:00:00 Completed [facility] SARS-COV-2 COVID-19 PFIZER VACCINE 2020-08-01 00:00:00 Completed [facility] SARS-COV-2 COVID-19 PFIZER VACCINE 2020-07-11 00:00:00 Completed [facility] SARS-COV-2 COVID-19 PFIZER VACCINE 2020-07-11 00:00:00 Completed [facility] SARS-COV-2 COVID-19 PFIZER VACCINE 2020-07-11 00:00:00 Completed [facility] SARS-COV-2 COVID-19 PFIZER VACCINE 2020-07-11 00:00:00 Completed [facility] SARS-COV-2 COVID-19 PFIZER VACCINE 2020-07-11 00:00:00 Completed [facility] SARS-COV-2 COVID-19 PFIZER VACCINE 2020-07-11 00:00:00 Completed [facility] SARS-COV-2 COVID-19 PFIZER VACCINE 2020-07-11 00:00:00 Completed [facility] SARS-COV-2 COVID-19 PFIZER VACCINE 2020-07-11 00:00:00 Completed [facility] SARS-COV-2 COVID-19 PFIZER VACCINE 2020-07-11 00:00:00 Completed [facility] SARS-COV-2 COVID-19 PFIZER VACCINE 2020-07-11 00:00:00 Completed [facility] SARS-COV-2 COVID-19 PFIZER VACCINE 2020-07-11 00:00:00 Completed [facility] SARS-COV-2 COVID-19 PFIZER VACCINE 2020-07-11 00:00:00 Completed [facility] SARS-COV-2 COVID-19 PFIZER VACCINE 2020-07-11 00:00:00 Completed [facility] SARS-COV-2 COVID-19 PFIZER VACCINE 2020-07-11 00:00:00 Completed [facility] SARS-COV-2 COVID-19 PFIZER VACCINE 2020-07-11 00:00:00 Completed [facility] SARS-COV-2 COVID-19 PFIZER VACCINE 2020-07-11 00:00:00 Completed [facility] SARS-COV-2 COVID-19 PFIZER VACCINE 2020-07-11 00:00:00 Completed [facility] SARS-COV-2 COVID-19 PFIZER VACCINE 2020-07-11 00:00:00 Completed [facility] SARS-COV-2 COVID-19 PFIZER VACCINE 2020-07-11 00:00:00 Completed [facility] SARS-COV-2 COVID-19 PFIZER VACCINE 2020-07-11 00:00:00 Completed [facility] SARS-COV-2 COVID-19 PFIZER VACCINE 2020-07-11 00:00:00 Completed [facility] SARS-COV-2 COVID-19 PFIZER VACCINE 2020-07-11 00:00:00 Completed [facility] SARS-COV-2 COVID-19 PFIZER VACCINE 2020-07-11 00:00:00 Completed [facility] SARS-COV-2 COVID-19 PFIZER VACCINE 2020-07-11 00:00:00 Completed [facility] SARS-COV-2 COVID-19 PFIZER VACCINE 2020-07-11 00:00:00 Completed [facility] SARS-COV-2 COVID-19 PFIZER VACCINE 2020-07-11 00:00:00 Completed [facility] SARS-COV-2 COVID-19 PFIZER VACCINE 2020-07-11 00:00:00 Completed [facility] SARS-COV-2 COVID-19 PFIZER VACCINE 2020-07-11 00:00:00 Completed [facility] SARS-COV-2 COVID-19 PFIZER VACCINE 2020-07-11 00:00:00 Completed [facility] SARS-COV-2 COVID-19 PFIZER VACCINE 2020-07-11 00:00:00 Completed [facility] SARS-COV-2 COVID-19 PFIZER VACCINE 2020-07-11 00:00:00 Completed [facility] SARS-COV-2 COVID-19 PFIZER VACCINE 2020-07-11 00:00:00 Completed [facility] SARS-COV-2 COVID-19 PFIZER VACCINE 2020-07-11 00:00:00 Completed [facility] SARS-COV-2 COVID-19 PFIZER VACCINE 2020-07-11 00:00:00 Completed [facility] SARS-COV-2 COVID-19 PFIZER VACCINE 2020-07-11 00:00:00 Completed [facility] SARS-COV-2 COVID-19 PFIZER VACCINE 2020-07-11 00:00:00 Completed [facility] SARS-COV-2 COVID-19 PFIZER VACCINE 2020-07-11 00:00:00 Completed [facility] SARS-COV-2 COVID-19 PFIZER VACCINE 2020-07-11 00:00:00 Completed [facility] SARS-COV-2 COVID-19 PFIZER VACCINE 2020-07-11 00:00:00 Completed [facility] SARS-COV-2 COVID-19 PFIZER VACCINE 2020-07-11 00:00:00 Completed [facility] SARS-COV-2 COVID-19 PFIZER VACCINE 2020-07-11 00:00:00 Completed [facility] SARS-COV-2 COVID-19 PFIZER VACCINE 2020-07-11 00:00:00 Completed [facility] SARS-COV-2 COVID-19 PFIZER VACCINE 2020-07-11 00:00:00 Completed [facility] SARS-COV-2 COVID-19 PFIZER VACCINE 2020-07-11 00:00:00 Completed [facility] SARS-COV-2 COVID-19 PFIZER VACCINE 2020-07-11 00:00:00 Completed [facility] SARS-COV-2 COVID-19 PFIZER VACCINE 2020-07-11 00:00:00 Completed [facility] SARS-COV-2 COVID-19 PFIZER VACCINE 2020-07-11 00:00:00 Completed [facility] SARS-COV-2 COVID-19 PFIZER VACCINE 2020-07-11 00:00:00 Completed [facility] SARS-COV-2 COVID-19 PFIZER VACCINE 2020-07-11 00:00:00 Completed [facility] SARS-COV-2 COVID-19 PFIZER VACCINE 2020-07-11 00:00:00 Completed [facility] SARS-COV-2 COVID-19 PFIZER VACCINE 2020-07-11 00:00:00 Completed [facility] SARS-COV-2 COVID-19 PFIZER VACCINE 2020-07-11 00:00:00 Completed [facility] SARS-COV-2 COVID-19 PFIZER VACCINE 2020-07-11 00:00:00 Completed [facility] SARS-COV-2 COVID-19 PFIZER VACCINE 2020-07-11 00:00:00 Completed [facility] SARS-COV-2 COVID-19 PFIZER VACCINE 2020-07-11 00:00:00 Completed [facility] SARS-COV-2 COVID-19 PFIZER VACCINE 2020-07-11 00:00:00 Completed [facility] SARS-COV-2 COVID-19 PFIZER VACCINE 2020-07-11 00:00:00 Completed [facility] SARS-COV-2 COVID-19 PFIZER VACCINE 2020-07-11 00:00:00 Completed [facility] SARS-COV-2 COVID-19 PFIZER VACCINE 2020-07-11 00:00:00 Completed [facility] SARS-COV-2 COVID-19 PFIZER VACCINE 2020-07-11 00:00:00 Completed [facility] SARS-COV-2 COVID-19 PFIZER VACCINE 2020-07-11 00:00:00 Completed [facility] SARS-COV-2 COVID-19 PFIZER VACCINE 2020-07-11 00:00:00 Completed [facility] SARS-COV-2 COVID-19 PFIZER VACCINE 2020-07-11 00:00:00 Completed [facility] SARS-COV-2 COVID-19 PFIZER VACCINE 2020-07-11 00:00:00 Completed [facility] SARS-COV-2 COVID-19 PFIZER VACCINE 2020-07-11 00:00:00 Completed [facility] SARS-COV-2 COVID-19 PFIZER VACCINE 2020-07-11 00:00:00 Completed [facility] SARS-COV-2 COVID-19 PFIZER VACCINE 2020-07-11 00:00:00 Completed [facility] SARS-COV-2 COVID-19 PFIZER VACCINE 2020-07-11 00:00:00 Completed [facility] SARS-COV-2 COVID-19 PFIZER VACCINE 2020-07-11 00:00:00 Completed [facility] SARS-COV-2 COVID-19 PFIZER VACCINE 2020-07-11 00:00:00 Completed [facility] SARS-COV-2 COVID-19 PFIZER VACCINE 2020-07-11 00:00:00 Completed [facility] SARS-COV-2 COVID-19 PFIZER VACCINE 2020-07-11 00:00:00 Completed [facility] SARS-COV-2 COVID-19 PFIZER VACCINE 2020-07-11 00:00:00 Completed [facility] SARS-COV-2 COVID-19 PFIZER VACCINE 2020-07-11 00:00:00 Completed [facility] SARS-COV-2 COVID-19 PFIZER VACCINE 2020-07-11 00:00:00 Completed [facility] SARS-COV-2 COVID-19 PFIZER VACCINE 2020-07-11 00:00:00 Completed [facility] SARS-COV-2 COVID-19 PFIZER VACCINE 2020-07-11 00:00:00 Completed [facility] SARS-COV-2 COVID-19 PFIZER VACCINE 2020-07-11 00:00:00 Completed [facility] SARS-COV-2 COVID-19 PFIZER VACCINE 2020-07-11 00:00:00 Completed [facility] SARS-COV-2 COVID-19 PFIZER VACCINE 2020-07-11 00:00:00 Completed [facility] SARS-COV-2 COVID-19 PFIZER VACCINE 2020-07-11 00:00:00 Completed [facility] SARS-COV-2 COVID-19 PFIZER VACCINE 2020-07-11 00:00:00 Completed [facility] SARS-COV-2 COVID-19 PFIZER VACCINE 2020-07-11 00:00:00 Completed [facility] SARS-COV-2 COVID-19 PFIZER VACCINE 2020-07-11 00:00:00 Completed [facility] SARS-COV-2 COVID-19 PFIZER VACCINE 2020-07-11 00:00:00 Completed [facility] SARS-COV-2 COVID-19 PFIZER VACCINE 2020-07-11 00:00:00 Completed [facility] SARS-COV-2 COVID-19 PFIZER VACCINE 2020-07-11 00:00:00 Completed [facility] SARS-COV-2 COVID-19 PFIZER VACCINE 2020-07-11 00:00:00 Completed [facility] SARS-COV-2 COVID-19 PFIZER VACCINE 2020-07-11 00:00:00 Completed [facility] SARS-COV-2 COVID-19 PFIZER VACCINE 2020-07-11 00:00:00 Completed [facility] SARS-COV-2 COVID-19 PFIZER VACCINE 2020-07-11 00:00:00 Completed [facility] TDAP 2017-05-03 00:00:00 Completed [facility] TDAP 2017-05-03 00:00:00 Completed [facility] TDAP 2017-05-03 00:00:00 Completed [facility] TDAP 2017-05-03 00:00:00 Completed [facility] TDAP 2017-05-03 00:00:00 Completed [facility] TDAP 2017-05-03 00:00:00 Completed [facility] TDAP 2017-05-03 00:00:00 Completed [facility] TDAP 2017-05-03 00:00:00 Completed [facility] TDAP 2017-05-03 00:00:00 Completed [facility] TDAP 2017-05-03 00:00:00 Completed [facility] TDAP 2017-05-03 00:00:00 Completed [facility] TDAP 2017-05-03 00:00:00 Completed [facility] TDAP 2017-05-03 00:00:00 Completed [facility] TDAP 2017-05-03 00:00:00 Completed [facility] TDAP 2017-05-03 00:00:00 Completed [facility] TDAP 2017-05-03 00:00:00 Completed [facility] TDAP 2017-05-03 00:00:00 Completed [facility] TDAP 2017-05-03 00:00:00 Completed [facility] TDAP 2017-05-03 00:00:00 Completed [facility] TDAP 2017-05-03 00:00:00 Completed [facility] TDAP 2017-05-03 00:00:00 Completed [facility] TDAP 2017-05-03 00:00:00 Completed [facility] TDAP 2017-05-03 00:00:00 Completed [facility] TDAP 2017-05-03 00:00:00 Completed [facility] TDAP 2017-05-03 00:00:00 Completed [facility] TDAP 2017-05-03 00:00:00 Completed [facility] TDAP 2017-05-03 00:00:00 Completed [facility] TDAP 2017-05-03 00:00:00 Completed [facility] TDAP 2017-05-03 00:00:00 Completed [facility] TDAP 2017-05-03 00:00:00 Completed [facility] TDAP 2017-05-03 00:00:00 Completed [facility] TDAP 2017-05-03 00:00:00 Completed [facility] TDAP 2017-05-03 00:00:00 Completed [facility] TDAP 2017-05-03 00:00:00 Completed [facility] TDAP 2017-05-03 00:00:00 Completed [facility] TDAP 2017-05-03 00:00:00 Completed [facility] TDAP 2017-05-03 00:00:00 Completed [facility] TDAP 2017-05-03 00:00:00 Completed [facility] TDAP 2017-05-03 00:00:00 Completed [facility] TDAP 2017-05-03 00:00:00 Completed [facility] TDAP 2017-05-03 00:00:00 Completed [facility] TDAP 2017-05-03 00:00:00 Completed [facility] TDAP 2017-05-03 00:00:00 Completed [facility] TDAP 2017-05-03 00:00:00 Completed [facility] TDAP 2017-05-03 00:00:00 Completed [facility] TDAP 2017-05-03 00:00:00 Completed [facility] TDAP 2017-05-03 00:00:00 Completed [facility] TDAP 2017-05-03 00:00:00 Completed [facility] TDAP 2017-05-03 00:00:00 Completed [facility] TDAP 2017-05-03 00:00:00 Completed [facility] TDAP 2017-05-03 00:00:00 Completed [facility] TDAP 2017-05-03 00:00:00 Completed [facility] TDAP 2017-05-03 00:00:00 Completed [facility] TDAP 2017-05-03 00:00:00 Completed [facility] TDAP 2017-05-03 00:00:00 Completed [facility] TDAP 2017-05-03 00:00:00 Completed [facility] TDAP 2017-05-03 00:00:00 Completed [facility] TDAP 2017-05-03 00:00:00 Completed [facility] TDAP 2017-05-03 00:00:00 Completed [facility] TDAP 2017-05-03 00:00:00 Completed [facility] TDAP 2017-05-03 00:00:00 Completed [facility] TDAP 2017-05-03 00:00:00 Completed [facility] TDAP 2017-05-03 00:00:00 Completed [facility] TDAP 2017-05-03 00:00:00 Completed [facility] TDAP 2017-05-03 00:00:00 Completed [facility] TDAP 2017-05-03 00:00:00 Completed [facility] TDAP 2017-05-03 00:00:00 Completed [facility] TDAP 2017-05-03 00:00:00 Completed [facility] TDAP 2017-05-03 00:00:00 Completed [facility] TDAP 2017-05-03 00:00:00 Completed [facility] TDAP 2017-05-03 00:00:00 Completed [facility] TDAP 2017-05-03 00:00:00 Completed [facility] TDAP 2017-05-03 00:00:00 Completed [facility] TDAP 2017-05-03 00:00:00 Completed [facility] TDAP 2017-05-03 00:00:00 Completed [facility] TDAP 2017-05-03 00:00:00 Completed [facility] TDAP 2017-05-03 00:00:00 Completed [facility] TDAP 2017-05-03 00:00:00 Completed [facility] TDAP 2017-05-03 00:00:00 Completed [facility] TDAP 2017-05-03 00:00:00 Completed [facility] TDAP 2017-05-03 00:00:00 Completed [facility] TDAP 2017-05-03 00:00:00 Completed [facility] TDAP 2017-05-03 00:00:00 Completed [facility] TDAP 2017-05-03 00:00:00 Completed [facility] TDAP 2017-05-03 00:00:00 Completed [facility] TDAP 2017-05-03 00:00:00 Completed [facility] TDAP 2017-05-03 00:00:00 Completed [facility] TDAP 2017-05-03 00:00:00 Completed [facility] TDAP 2017-05-03 00:00:00 Completed [facility] TDAP 2017-05-03 00:00:00 Completed [facility] TDAP 2017-05-03 00:00:00 Completed [facility] SARS-COV-2 COVID-19 PFIZER VACCINE Unknown Completed [facility] SARS-COV-2 COVID-19 PFIZER VACCINE Unknown Completed [facility] TDAP Unknown Completed [facility] Influenza Virus Vaccine,quad Im,preserve Free 65+ (FLUAD) Unknown Completed [facility] SARS-COV-2 COVID-19 PFIZER VACCINE Unknown Completed [facility] Influenza Virus Vaccine,quad Im,preserve Free 65+ (FLUAD) Unknown Completed [facility] SARS-COV-2 COVID-19 CLARISSA-SUCROSE VACCINE 12 YRS+, BIVALENT 0.3ML, IM, (PFIZER MEZA TOP) Unknown Completed [facility] Pneumococcal 20 Conjugate, PCV20 (Prevnar 20) Unknown Completed [facility] SARS-COV-2 COVID-19 PFIZER VACCINE Unknown Completed [facility] SARS-COV-2 COVID-19 PFIZER VACCINE Unknown Completed [facility] TDAP Unknown Completed [facility] Influenza Virus Vaccine,quad Im,preserve Free 65+ (FLUAD) Unknown Completed [facility] SARS-COV-2 COVID-19 PFIZER VACCINE Unknown Completed [facility] Influenza Virus Vaccine,quad Im,preserve Free 65+ (FLUAD) Unknown Completed [facility] SARS-COV-2 COVID-19 CLARISSA-SUCROSE VACCINE 12 YRS+, BIVALENT 0.3ML, IM, (PFIZER MEZA TOP) Unknown Completed [facility] Pneumococcal 20 Conjugate, PCV20 (Prevnar 20) Unknown Completed [facility] SARS-COV-2 COVID-19 PFIZER VACCINE Unknown Completed [facility] SARS-COV-2 COVID-19 PFIZER VACCINE Unknown Completed [facility] TDAP Unknown Completed [facility] Influenza Virus Vaccine,quad Im,preserve Free 65+ (FLUAD) Unknown Completed [facility] SARS-COV-2 COVID-19 PFIZER VACCINE Unknown Completed [facility] Influenza Virus Vaccine,quad Im,preserve Free 65+ (FLUAD) Unknown Completed [facility] SARS-COV-2 COVID-19 CLARISSA-SUCROSE VACCINE 12 YRS+, BIVALENT 0.3ML, IM, (PFIZER MEZA TOP) Unknown Completed [facility] Pneumococcal 20 Conjugate, PCV20 (Prevnar 20) Unknown Completed [facility] SARS-COV-2 COVID-19 PFIZER VACCINE Unknown Completed [facility] SARS-COV-2 COVID-19 PFIZER VACCINE Unknown Completed [facility] TDAP Unknown Completed [facility] Influenza Virus Vaccine,quad Im,preserve Free 65+ (FLUAD) Unknown Completed [facility] SARS-COV-2 COVID-19 PFIZER VACCINE Unknown Completed [facility] Influenza Virus Vaccine,quad Im,preserve Free 65+ (FLUAD) Unknown Completed [facility] SARS-COV-2 COVID-19 CLARISSA-SUCROSE VACCINE 12 YRS+, BIVALENT 0.3ML, IM, (PFIZER MEZA TOP) Unknown Completed [facility] Pneumococcal 20 Conjugate, PCV20 (Prevnar 20) Unknown Completed [facility] SARS-COV-2 COVID-19 PFIZER VACCINE Unknown Completed [facility] SARS-COV-2 COVID-19 PFIZER VACCINE Unknown Completed [facility] TDAP Unknown Completed [facility] Influenza Virus Vaccine,quad Im,preserve Free 65+ (FLUAD) Unknown Completed [facility] SARS-COV-2 COVID-19 PFIZER VACCINE Unknown Completed [facility] Influenza Virus Vaccine,quad Im,preserve Free 65+ (FLUAD) Unknown Completed [facility] SARS-COV-2 COVID-19 CLARISSA-SUCROSE VACCINE 12 YRS+, BIVALENT 0.3ML, IM, (PFIZER MEZA TOP) Unknown Completed [facility] Pneumococcal 20 Conjugate, PCV20 (Prevnar 20) Unknown Completed [facility] SARS-COV-2 COVID-19 PFIZER VACCINE Unknown Completed [facility] SARS-COV-2 COVID-19 PFIZER VACCINE Unknown Completed [facility] TDAP Unknown Completed [facility] Influenza Virus Vaccine,quad Im,preserve Free 65+ (FLUAD) Unknown Completed [facility] SARS-COV-2 COVID-19 PFIZER VACCINE Unknown Completed [facility] Influenza Virus Vaccine,quad Im,preserve Free 65+ (FLUAD) Unknown Completed [facility] SARS-COV-2 COVID-19 CLARISSA-SUCROSE VACCINE 12 YRS+, BIVALENT 0.3ML, IM, (PFIZER MEZA TOP) Unknown Completed [facility] Pneumococcal 20 Conjugate, PCV20 (Prevnar 20) Unknown Completed [facility] SARS-COV-2 COVID-19 PFIZER VACCINE Unknown Completed [facility] SARS-COV-2 COVID-19 PFIZER VACCINE Unknown Completed [facility] TDAP Unknown Completed [facility] Influenza Virus Vaccine,quad Im,preserve Free 65+ (FLUAD) Unknown Completed [facility] SARS-COV-2 COVID-19 PFIZER VACCINE Unknown Completed [facility] Influenza Virus Vaccine,quad Im,preserve Free 65+ (FLUAD) Unknown Completed [facility] SARS-COV-2 COVID-19 CLARISSA-SUCROSE VACCINE 12 YRS+, BIVALENT 0.3ML, IM, (PFIZER MEZA TOP) Unknown Completed [facility] Pneumococcal 20 Conjugate, PCV20 (Prevnar 20) Unknown Completed [facility] SARS-COV-2 COVID-19 PFIZER VACCINE Unknown Completed [facility] SARS-COV-2 COVID-19 PFIZER VACCINE Unknown Completed [facility] TDAP Unknown Completed [facility] Influenza Virus Vaccine,quad Im,preserve Free 65+ (FLUAD) Unknown Completed [facility] SARS-COV-2 COVID-19 PFIZER VACCINE Unknown Completed [facility] Influenza Virus Vaccine,quad Im,preserve Free 65+ (FLUAD) Unknown Completed [facility] SARS-COV-2 COVID-19 CLARISSA-SUCROSE VACCINE 12 YRS+, BIVALENT 0.3ML, IM, (PFIZER MEZA TOP) Unknown Completed [facility] Pneumococcal 20 Conjugate, PCV20 (Prevnar 20) Unknown Completed [facility] SARS-COV-2 COVID-19 PFIZER VACCINE Unknown Completed [facility] SARS-COV-2 COVID-19 PFIZER VACCINE Unknown Completed [facility] TDAP Unknown Completed [facility] Influenza Virus Vaccine,quad Im,preserve Free 65+ (FLUAD) Unknown Completed [facility] SARS-COV-2 COVID-19 PFIZER VACCINE Unknown Completed [facility] Influenza Virus Vaccine,quad Im,preserve Free 65+ (FLUAD) Unknown Completed [facility] SARS-COV-2 COVID-19 CLARISSA-SUCROSE VACCINE 12 YRS+, BIVALENT 0.3ML, IM, (PFIZER MEZA TOP) Unknown Completed [facility] Pneumococcal 20 Conjugate, PCV20 (Prevnar 20) Unknown Completed [facility] SARS-COV-2 COVID-19 PFIZER VACCINE Unknown Completed [facility] SARS-COV-2 COVID-19 PFIZER VACCINE Unknown Completed [facility] TDAP Unknown Completed [facility] Influenza Virus Vaccine,quad Im,preserve Free 65+ (FLUAD) Unknown Completed [facility] SARS-COV-2 COVID-19 PFIZER VACCINE Unknown Completed [facility] Influenza Virus Vaccine,quad Im,preserve Free 65+ (FLUAD) Unknown Completed [facility] SARS-COV-2 COVID-19 CLARISSA-SUCROSE VACCINE 12 YRS+, BIVALENT 0.3ML, IM, (PFIZER MEZA TOP) Unknown Completed [facility] Pneumococcal 20 Conjugate, PCV20 (Prevnar 20) Unknown Completed [facility] SARS-COV-2 COVID-19 PFIZER VACCINE Unknown Completed [facility] SARS-COV-2 COVID-19 PFIZER VACCINE Unknown Completed [facility] TDAP Unknown Completed [facility] Influenza Virus Vaccine,quad Im,preserve Free 65+ (FLUAD) Unknown Completed [facility] SARS-COV-2 COVID-19 PFIZER VACCINE Unknown Completed [facility] Influenza Virus Vaccine,quad Im,preserve Free 65+ (FLUAD) Unknown Completed [facility] SARS-COV-2 COVID-19 CLARISSA-SUCROSE VACCINE 12 YRS+, BIVALENT 0.3ML, IM, (PFIZER MEZA TOP) Unknown Completed [facility] Pneumococcal 20 Conjugate, PCV20 (Prevnar 20) Unknown Completed [facility] SARS-COV-2 COVID-19 PFIZER VACCINE Unknown Completed [facility] SARS-COV-2 COVID-19 PFIZER VACCINE Unknown Completed [facility] TDAP Unknown Completed [facility] Influenza Virus Vaccine,quad Im,preserve Free 65+ (FLUAD) Unknown Completed [facility] SARS-COV-2 COVID-19 PFIZER VACCINE Unknown Completed [facility] Influenza Virus Vaccine,quad Im,preserve Free 65+ (FLUAD) Unknown Completed [facility] SARS-COV-2 COVID-19 CLARISSA-SUCROSE VACCINE 12 YRS+, BIVALENT 0.3ML, IM, (PFIZER MEZA TOP) Unknown Completed [facility] Pneumococcal 20 Conjugate, PCV20 (Prevnar 20) Unknown Completed [facility] Influenza Virus Vaccine,quad Im,preserve Free 65+ (FLUAD) Unknown Completed [facility] SARS-COV-2 COVID 19 CLARISSA SUCROSE VACCINE 12+, [id number], 0.3 ML (30 MCG), IM PFIZER (MEZA TOP) Unknown Completed [facility] SARS-COV-2 COVID-19 PFIZER VACCINE Unknown Completed [facility] SARS-COV-2 COVID-19 PFIZER VACCINE Unknown Completed [facility] TDAP Unknown Completed [facility] Influenza Virus Vaccine,quad Im,preserve Free 65+ (FLUAD) Unknown Completed [facility] SARS-COV-2 COVID-19 PFIZER VACCINE Unknown Completed [facility] Influenza Virus Vaccine,quad Im,preserve Free 65+ (FLUAD) Unknown Completed [facility] SARS-COV-2 COVID-19 CLARISSA-SUCROSE VACCINE 12 YRS+, BIVALENT 0.3ML, IM, (PFIZER MEZA TOP) Unknown Completed [facility] Pneumococcal 20 Conjugate, PCV20 (Prevnar 20) Unknown Completed [facility] Influenza Virus Vaccine,quad Im,preserve Free 65+ (FLUAD) Unknown Completed [facility] SARS-COV-2 COVID 19 CLARISSA SUCROSE VACCINE 12+, [id number], 0.3 ML (30 MCG), IM PFIZER (MEZA TOP) Unknown Completed [facility] SARS-COV-2 COVID-19 PFIZER VACCINE Unknown Completed [facility] SARS-COV-2 COVID-19 PFIZER VACCINE Unknown Completed [facility] TDAP Unknown Completed [facility] Influenza Virus Vaccine,quad Im,preserve Free 65+ (FLUAD) Unknown Completed [facility] SARS-COV-2 COVID-19 PFIZER VACCINE Unknown Completed [facility] Influenza Virus Vaccine,quad Im,preserve Free 65+ (FLUAD) Unknown Completed [facility] SARS-COV-2 COVID-19 CLARISSA-SUCROSE VACCINE 12 YRS+, BIVALENT 0.3ML, IM, (PFIZER MEZA TOP) Unknown Completed [facility] Pneumococcal 20 Conjugate, PCV20 (Prevnar 20) Unknown Completed [facility] Influenza Virus Vaccine,quad Im,preserve Free 65+ (FLUAD) Unknown Completed [facility] SARS-COV-2 COVID 19 CLARISSA SUCROSE VACCINE 12+, , 0.3 ML (30 MCG), IM PFIZER (MEZA TOP) Unknown Completed [facility] SARS-COV-2 COVID-19 PFIZER VACCINE Unknown Completed [facility] SARS-COV-2 COVID-19 PFIZER VACCINE Unknown Completed [facility] TDAP Unknown Completed [facility] Influenza Virus Vaccine,quad Im,preserve Free 65+ (FLUAD) Unknown Completed [facility] SARS-COV-2 COVID-19 PFIZER VACCINE Unknown Completed [facility] Influenza Virus Vaccine,quad Im,preserve Free 65+ (FLUAD) Unknown Completed [facility] SARS-COV-2 COVID-19 CLARISSA-SUCROSE VACCINE 12 YRS+, BIVALENT 0.3ML, IM, (PFIZER MEZA TOP) Unknown Completed [facility] Pneumococcal 20 Conjugate, PCV20 (Prevnar 20) Unknown Completed [facility] Influenza Virus Vaccine,quad Im,preserve Free 65+ (FLUAD) Unknown Completed [facility] SARS-COV-2 COVID 19 CLARISSA SUCROSE VACCINE 12+, , 0.3 ML (30 MCG), IM PFIZER (MEZA TOP) Unknown Completed [facility] SARS-COV-2 COVID-19 PFIZER VACCINE Unknown Completed [facility] SARS-COV-2 COVID-19 PFIZER VACCINE Unknown Completed [facility] TDAP Unknown Completed [facility] Influenza Virus Vaccine,quad Im,preserve Free 65+ (FLUAD) Unknown Completed [facility] SARS-COV-2 COVID-19 PFIZER VACCINE Unknown Completed [facility] Influenza Virus Vaccine,quad Im,preserve Free 65+ (FLUAD) Unknown Completed [facility] SARS-COV-2 COVID-19 CLARISSA-SUCROSE VACCINE 12 YRS+, BIVALENT 0.3ML, IM, (PFIZER MEZA TOP) Unknown Completed [facility] Pneumococcal 20 Conjugate, PCV20 (Prevnar 20) Unknown Completed [facility] Influenza Virus Vaccine,quad Im,preserve Free 65+ (FLUAD) Unknown Completed [facility] SARS-COV-2 COVID 19 CLARISSA SUCROSE VACCINE 12+, , 0.3 ML (30 MCG), IM PFIZER (MEZA TOP) Unknown Completed [facility] SARS-COV-2 COVID-19 PFIZER VACCINE Unknown Completed [facility] SARS-COV-2 COVID-19 PFIZER VACCINE Unknown Completed [facility] TDAP Unknown Completed [facility] Influenza Virus Vaccine,quad Im,preserve Free 65+ (FLUAD) Unknown Completed [facility] SARS-COV-2 COVID-19 PFIZER VACCINE Unknown Completed [facility] Influenza Virus Vaccine,quad Im,preserve Free 65+ (FLUAD) Unknown Completed [facility] SARS-COV-2 COVID-19 CLARISSA-SUCROSE VACCINE 12 YRS+, BIVALENT 0.3ML, IM, (PFIZER MEZA TOP) Unknown Completed [facility] Pneumococcal 20 Conjugate, PCV20 (Prevnar 20) Unknown Completed [facility] Influenza Virus Vaccine,quad Im,preserve Free 65+ (FLUAD) Unknown Completed [facility] SARS-COV-2 COVID 19 CLARISSA SUCROSE VACCINE 12+, , 0.3 ML (30 MCG), IM PFIZER (MEZA TOP) Unknown Completed [facility] SARS-COV-2 COVID-19 PFIZER VACCINE Unknown Completed [facility] SARS-COV-2 COVID-19 PFIZER VACCINE Unknown Completed [facility] TDAP Unknown Completed [facility] Influenza Virus Vaccine,quad Im,preserve Free 65+ (FLUAD) Unknown Completed [facility] SARS-COV-2 COVID-19 PFIZER VACCINE Unknown Completed [facility] Influenza Virus Vaccine,quad Im,preserve Free 65+ (FLUAD) Unknown Completed [facility] SARS-COV-2 COVID-19 CLARISSA-SUCROSE VACCINE 12 YRS+, BIVALENT 0.3ML, IM, (PFIZER MEZA TOP) Unknown Completed [facility] Pneumococcal 20 Conjugate, PCV20 (Prevnar 20) Unknown Completed [facility] Influenza Virus Vaccine,quad Im,preserve Free 65+ (FLUAD) Unknown Completed [facility] SARS-COV-2 COVID 19 CLARISSA SUCROSE VACCINE 12+, , 0.3 ML (30 MCG), IM PFIZER (MEZA TOP) Unknown Completed [facility] SARS-COV-2 COVID-19 PFIZER VACCINE Unknown Completed [facility] SARS-COV-2 COVID-19 PFIZER VACCINE Unknown Completed [facility] TDAP Unknown Completed [facility] Influenza Virus Vaccine,quad Im,preserve Free 65+ (FLUAD) Unknown Completed [facility] SARS-COV-2 COVID-19 PFIZER VACCINE Unknown Completed [facility] Influenza Virus Vaccine,quad Im,preserve Free 65+ (FLUAD) Unknown Completed [facility] SARS-COV-2 COVID-19 CLARISSA-SUCROSE VACCINE 12 YRS+, BIVALENT 0.3ML, IM, (PFIZER MEZA TOP) Unknown Completed [facility] Pneumococcal 20 Conjugate, PCV20 (Prevnar 20) Unknown Completed [facility] Influenza Virus Vaccine,quad Im,preserve Free 65+ (FLUAD) Unknown Completed [facility] SARS-COV-2 COVID 19 CLARISSA SUCROSE VACCINE 12, , 0.3 ML (30 MCG), IM PFIZER (MEZA TOP) Unknown Completed [facility] SARS-COV-2 COVID-19 PFIZER VACCINE Unknown Completed [facility] SARS-COV-2 COVID-19 PFIZER VACCINE Unknown Completed [facility] TDAP Unknown Completed [facility] Influenza Virus Vaccine,quad Im,preserve Free 65+ (FLUAD) Unknown Completed [facility] SARS-COV-2 COVID-19 PFIZER VACCINE Unknown Completed [facility] Influenza Virus Vaccine,quad Im,preserve Free 65+ (FLUAD) Unknown Completed [facility] SARS-COV-2 COVID-19 CLARISSA-SUCROSE VACCINE 12 YRS+, BIVALENT 0.3ML, IM, (PFIZER MEZA TOP) Unknown Completed [facility] Pneumococcal 20 Conjugate, PCV20 (Prevnar 20) Unknown Completed [facility] Influenza Virus Vaccine,quad Im,preserve Free 65+ (FLUAD) Unknown Completed [facility] SARS-COV-2 COVID 19 CLARISSA SUCROSE VACCINE 12, , 0.3 ML (30 MCG), IM PFIZER (MEZA TOP) Unknown Completed [facility] SARS-COV-2 COVID-19 PFIZER VACCINE Unknown Completed [facility] SARS-COV-2 COVID-19 PFIZER VACCINE Unknown Completed [facility] TDAP Unknown Completed [facility] Influenza Virus Vaccine,quad Im,preserve Free 65+ (FLUAD) Unknown Completed [facility] SARS-COV-2 COVID-19 PFIZER VACCINE Unknown Completed [facility] Influenza Virus Vaccine,quad Im,preserve Free 65+ (FLUAD) Unknown Completed [facility] SARS-COV-2 COVID-19 CLARISSA-SUCROSE VACCINE 12 YRS+, BIVALENT 0.3ML, IM, (PFIZER MEZA TOP) Unknown Completed [facility] Pneumococcal 20 Conjugate, PCV20 (Prevnar 20) Unknown Completed [facility] Influenza Virus Vaccine,quad Im,preserve Free 65+ (FLUAD) Unknown Completed [facility] SARS-COV-2 COVID 19 CLARISSA SUCROSE VACCINE 12, , 0.3 ML (30 MCG), IM PFIZER (MEZA TOP) Unknown Completed [facility] SARS-COV-2 COVID-19 PFIZER VACCINE Unknown Completed [facility] SARS-COV-2 COVID-19 PFIZER VACCINE Unknown Completed [facility] TDAP Unknown Completed [facility] Influenza Virus Vaccine,quad Im,preserve Free 65+ (FLUAD) Unknown Completed [facility] SARS-COV-2 COVID-19 PFIZER VACCINE Unknown Completed [facility] Influenza Virus Vaccine,quad Im,preserve Free 65+ (FLUAD) Unknown Completed [facility] SARS-COV-2 COVID-19 CLARISSA-SUCROSE VACCINE 12 YRS+, BIVALENT 0.3ML, IM, (PFIZER MEZA TOP) Unknown Completed [facility] Pneumococcal 20 Conjugate, PCV20 (Prevnar 20) Unknown Completed [facility] Influenza Virus Vaccine,quad Im,preserve Free 65+ (FLUAD) Unknown Completed [facility] SARS-COV-2 COVID 19 CLARISSA SUCROSE VACCINE 12+, , 0.3 ML (30 MCG), IM PFIZER (MEZA TOP) Unknown Completed [facility] SARS-COV-2 COVID-19 PFIZER VACCINE Unknown Completed [facility] SARS-COV-2 COVID-19 PFIZER VACCINE Unknown Completed [facility] TDAP Unknown Completed [facility] Influenza Virus Vaccine,quad Im,preserve Free 65+ (FLUAD) Unknown Completed [facility] SARS-COV-2 COVID-19 PFIZER VACCINE Unknown Completed [facility] Influenza Virus Vaccine,quad Im,preserve Free 65+ (FLUAD) Unknown Completed [facility] SARS-COV-2 COVID-19 CLARISSA-SUCROSE VACCINE 12 YRS+, BIVALENT 0.3ML, IM, (PFIZER MEZA TOP) Unknown Completed [facility] Pneumococcal 20 Conjugate, PCV20 (Prevnar 20) Unknown Completed [facility] [place] Influenza Virus Vaccine,quad Im,preserve Free 65+ (FLUAD) Unknown Completed [facility] [place] SARS-COV-2 COVID 19 CLARISSA SUCROSE VACCINE 12+, [id number], 0.3 ML (30 MCG), IM PFIZER (MEZA TOP) Unknown Completed [facility] [place] SARS-COV-2 COVID-19 PFIZER VACCINE Unknown Completed [facility] [place] SARS-COV-2 COVID-19 PFIZER VACCINE Unknown Completed [facility] [place] TDAP Unknown Completed [facility] [place] Influenza Virus Vaccine,quad Im,preserve Free 65+ (FLUAD) Unknown Completed [facility] [place] SARS-COV-2 COVID-19 PFIZER VACCINE Unknown Completed [facility] [place] Influenza Virus Vaccine,quad Im,preserve Free 65+ (FLUAD) Unknown Completed [facility] [place] SARS-COV-2 COVID-19 CLARISSA-SUCROSE VACCINE 12 YRS+, BIVALENT 0.3ML, IM, (PFIZER MEZA TOP) Unknown Completed [facility] [place] Pneumococcal 20 Conjugate, PCV20 (Prevnar 20) Unknown Completed [facility] [place] Influenza Virus Vaccine,quad Im,preserve Free 65+ (FLUAD) Unknown Completed [facility] [place] SARS-COV-2 COVID 19 CLARISSA SUCROSE VACCINE 12+, , 0.3 ML (30 MCG), IM PFIZER (MEZA TOP) Unknown Completed [facility] [place] SARS-COV-2 COVID-19 PFIZER VACCINE Unknown Completed [facility] [place] SARS-COV-2 COVID-19 PFIZER VACCINE Unknown Completed [facility] [place] TDAP Unknown Completed [facility] [place] Influenza Virus Vaccine,quad Im,preserve Free 65+ (FLUAD) Unknown Completed [facility] [place] SARS-COV-2 COVID-19 PFIZER VACCINE Unknown Completed [facility] [place] Influenza Virus Vaccine,quad Im,preserve Free 65+ (FLUAD) Unknown Completed [facility] [place] SARS-COV-2 COVID-19 CLARISSA-SUCROSE VACCINE 12 YRS+, BIVALENT 0.3ML, IM, (PFIZER MEZA TOP) Unknown Completed [facility] [place] Pneumococcal 20 Conjugate, PCV20 (Prevnar 20) Unknown Completed [facility] [place] Influenza Virus Vaccine,quad Im,preserve Free 65+ (FLUAD) Unknown Completed [facility] [place] SARS-COV-2 COVID 19 CLARISSA SUCROSE VACCINE 12+, , 0.3 ML (30 MCG), IM PFIZER (MEZA TOP) Unknown Completed [facility] [place] SARS-COV-2 COVID-19 PFIZER VACCINE Unknown Completed [facility] [place] SARS-COV-2 COVID-19 PFIZER VACCINE Unknown Completed [facility] [place] TDAP Unknown Completed [facility] [place] Influenza Virus Vaccine,quad Im,preserve Free 65+ (FLUAD) Unknown Completed [facility] [place] SARS-COV-2 COVID-19 PFIZER VACCINE Unknown Completed [facility] [place] Influenza Virus Vaccine,quad Im,preserve Free 65+ (FLUAD) Unknown Completed [facility] [place] SARS-COV-2 COVID-19 CLARISSA-SUCROSE VACCINE 12 YRS+, BIVALENT 0.3ML, IM, (PFIZER MEZA TOP) Unknown Completed [facility] [place] Pneumococcal 20 Conjugate, PCV20 (Prevnar 20) Unknown Completed [facility] [place] Influenza Virus Vaccine,quad Im,preserve Free 65+ (FLUAD) Unknown Completed [facility] [place] SARS-COV-2 COVID 19 CLARISSA SUCROSE VACCINE 12+, , 0.3 ML (30 MCG), IM PFIZER (MEZA TOP) Unknown Completed [facility] [place] SARS-COV-2 COVID-19 PFIZER VACCINE Unknown Completed [facility] [place] SARS-COV-2 COVID-19 PFIZER VACCINE Unknown Completed [facility] [place] TDAP Unknown Completed [facility] [place] Influenza Virus Vaccine,quad Im,preserve Free 65+ (FLUAD) Unknown Completed [facility] [place] SARS-COV-2 COVID-19 PFIZER VACCINE Unknown Completed [facility] [place] Influenza Virus Vaccine,quad Im,preserve Free 65+ (FLUAD) Unknown Completed [facility] [place] SARS-COV-2 COVID-19 CLARISSA-SUCROSE VACCINE 12 YRS+, BIVALENT 0.3ML, IM, (PFIZER MEZA TOP) Unknown Completed [facility] [place] Pneumococcal 20 Conjugate, PCV20 (Prevnar 20) Unknown Completed [facility] [place] Influenza Virus Vaccine,quad Im,preserve Free 65+ (FLUAD) Unknown Completed [facility] [place] SARS-COV-2 COVID 19 CLARISSA SUCROSE VACCINE 12+, , 0.3 ML (30 MCG), IM PFIZER (MEZA TOP) Unknown Completed [facility] [place] SARS-COV-2 COVID-19 PFIZER VACCINE Unknown Completed [facility] [place] SARS-COV-2 COVID-19 PFIZER VACCINE Unknown Completed [facility] [place] TDAP Unknown Completed [facility] [place] Influenza Virus Vaccine,quad Im,preserve Free 65+ (FLUAD) Unknown Completed [facility] [place] SARS-COV-2 COVID-19 PFIZER VACCINE Unknown Completed [facility] [place] Influenza Virus Vaccine,quad Im,preserve Free 65+ (FLUAD) Unknown Completed [facility] [place] SARS-COV-2 COVID-19 CLARISSA-SUCROSE VACCINE 12 YRS+, BIVALENT 0.3ML, IM, (PFIZER MEZA TOP) Unknown Completed [facility] [place] Pneumococcal 20 Conjugate, PCV20 (Prevnar 20) Unknown Completed [facility] [place] Influenza Virus Vaccine,quad Im,preserve Free 65+ (FLUAD) Unknown Completed [facility] [place] SARS-COV-2 COVID 19 CLARISSA SUCROSE VACCINE 12+, [id number], 0.3 ML (30 MCG), IM PFIZER (MEZA TOP) Unknown Completed [facility] [place] SARS-COV-2 COVID-19 PFIZER VACCINE Unknown Completed [facility] [place] SARS-COV-2 COVID-19 PFIZER VACCINE Unknown Completed [facility] [place] TDAP Unknown Completed [facility] [place] Influenza Virus Vaccine,quad Im,preserve Free 65+ (FLUAD) Unknown Completed [facility] [place] SARS-COV-2 COVID-19 PFIZER VACCINE Unknown Completed [facility] [place] Influenza Virus Vaccine,quad Im,preserve Free 65+ (FLUAD) Unknown Completed [facility] [place] SARS-COV-2 COVID-19 CLARISSA-SUCROSE VACCINE 12 YRS+, BIVALENT 0.3ML, IM, (PFIZER MEZA TOP) Unknown Completed [facility] [place] Pneumococcal 20 Conjugate, PCV20 (Prevnar 20) Unknown Completed [facility] [place] Influenza Virus Vaccine,quad Im,preserve Free 65+ (FLUAD) Unknown Completed [facility] [place] SARS-COV-2 COVID 19 CLARISSA SUCROSE VACCINE 12+, , 0.3 ML (30 MCG), IM PFIZER (MEZA TOP) Unknown Completed [facility] [place] SARS-COV-2 COVID-19 PFIZER VACCINE Unknown Completed [facility] [place] SARS-COV-2 COVID-19 PFIZER VACCINE Unknown Completed [facility] [place] TDAP Unknown Completed [facility] [place] Influenza Virus Vaccine,quad Im,preserve Free 65+ (FLUAD) Unknown Completed [facility] [place] SARS-COV-2 COVID-19 PFIZER VACCINE Unknown Completed [facility] [place] Influenza Virus Vaccine,quad Im,preserve Free 65+ (FLUAD) Unknown Completed [facility] [place] SARS-COV-2 COVID-19 CLARISSA-SUCROSE VACCINE 12 YRS+, BIVALENT 0.3ML, IM, (PFIZER MEZA TOP) Unknown Completed [facility] [place] Pneumococcal 20 Conjugate, PCV20 (Prevnar 20) Unknown Completed [facility] [place] Influenza Virus Vaccine,quad Im,preserve Free 65+ (FLUAD) Unknown Completed [facility] [place] SARS-COV-2 COVID 19 CLARISSA SUCROSE VACCINE 12+, , 0.3 ML (30 MCG), IM PFIZER (MEZA TOP) Unknown Completed [facility] [place] SARS-COV-2 COVID-19 PFIZER VACCINE Unknown Completed [facility] [place] SARS-COV-2 COVID-19 PFIZER VACCINE Unknown Completed [facility] [place] TDAP Unknown Completed [facility] [place] Influenza Virus Vaccine,quad Im,preserve Free 65+ (FLUAD) Unknown Completed [facility] [place] SARS-COV-2 COVID-19 PFIZER VACCINE Unknown Completed [facility] [place] Influenza Virus Vaccine,quad Im,preserve Free 65+ (FLUAD) Unknown Completed [facility] [place] SARS-COV-2 COVID-19 CLARISSA-SUCROSE VACCINE 12 YRS+, BIVALENT 0.3ML, IM, (PFIZER MEZA TOP) Unknown Completed [facility] [place] Pneumococcal 20 Conjugate, PCV20 (Prevnar 20) Unknown Completed [facility] [place] Influenza Virus Vaccine,quad Im,preserve Free 65+ (FLUAD) Unknown Completed [facility] [place] SARS-COV-2 COVID 19 CALRISSA SUCROSE VACCINE 12+, , 0.3 ML (30 MCG), IM PFIZER (MEZA TOP) Unknown Completed [facility] [place] SARS-COV-2 COVID-19 PFIZER VACCINE Unknown Completed [facility] [place] SARS-COV-2 COVID-19 PFIZER VACCINE Unknown Completed [facility] [place] TDAP Unknown Completed [facility] [place] Influenza Virus Vaccine,quad Im,preserve Free 65+ (FLUAD) Unknown Completed [facility] [place] SARS-COV-2 COVID-19 PFIZER VACCINE Unknown Completed [facility] [place] Influenza Virus Vaccine,quad Im,preserve Free 65+ (FLUAD) Unknown Completed [facility] [place] SARS-COV-2 COVID-19 CLARISSA-SUCROSE VACCINE 12 YRS+, BIVALENT 0.3ML, IM, (PFIZER MEZA TOP) Unknown Completed [facility] [place] Pneumococcal 20 Conjugate, PCV20 (Prevnar 20) Unknown Completed [facility] [place] Influenza Virus Vaccine,quad Im,preserve Free 65+ (FLUAD) Unknown Completed [facility] [place] SARS-COV-2 COVID 19 CLARISSA SUCROSE VACCINE 12+, , 0.3 ML (30 MCG), IM PFIZER (MEZA TOP) Unknown Completed [facility] [place] SARS-COV-2 COVID-19 PFIZER VACCINE Unknown Completed [facility] [place] SARS-COV-2 COVID-19 PFIZER VACCINE Unknown Completed [facility] [place] TDAP Unknown Completed [facility] [place] Influenza Virus Vaccine,quad Im,preserve Free 65+ (FLUAD) Unknown Completed [facility] [place] SARS-COV-2 COVID-19 PFIZER VACCINE Unknown Completed [facility] [place] Influenza Virus Vaccine,quad Im,preserve Free 65+ (FLUAD) Unknown Completed [facility] [place] SARS-COV-2 COVID-19 CLARISSA-SUCROSE VACCINE 12 YRS+, BIVALENT 0.3ML, IM, (PFIZER MEZA TOP) Unknown Completed [facility] [place] Pneumococcal 20 Conjugate, PCV20 (Prevnar 20) Unknown Completed [facility] [place] Influenza Virus Vaccine,quad Im,preserve Free 65+ (FLUAD) Unknown Completed [facility] [place] SARS-COV-2 COVID 19 CLARISSA SUCROSE VACCINE 12+, [id number], 0.3 ML (30 MCG), IM PFIZER (MEZA TOP) Unknown Completed [facility] [place] Zoster Vaccine Recombinant Unknown Completed [facility] [place] Zoster Vaccine Recombinant Unknown Completed [facility] [place] SARS-COV-2 COVID-19 PFIZER VACCINE Unknown Completed [facility] [place] SARS-COV-2 COVID-19 PFIZER VACCINE Unknown Completed [facility] [place] TDAP Unknown Completed [facility] [place] Influenza Virus Vaccine,quad Im,preserve Free 65+ (FLUAD) Unknown Completed [facility] [place] SARS-COV-2 COVID-19 PFIZER VACCINE Unknown Completed [facility] [place] Influenza Virus Vaccine,quad Im,preserve Free 65+ (FLUAD) Unknown Completed [facility] [place] SARS-COV-2 COVID-19 CLARISSA-SUCROSE VACCINE 12 YRS+, BIVALENT 0.3ML, IM, (PFIZER MEZA TOP) Unknown Completed [facility] [place] Pneumococcal 20 Conjugate, PCV20 (Prevnar 20) Unknown Completed [facility] [place] Influenza Virus Vaccine,quad Im,preserve Free 65+ (FLUAD) Unknown Completed [facility] [place] SARS-COV-2 COVID 19 CLARISSA SUCROSE VACCINE 12+, [id number], 0.3 ML (30 MCG), IM PFIZER (MEZA TOP) Unknown Completed [facility] [place] Zoster Vaccine Recombinant Unknown Completed [facility] [place] Zoster Vaccine Recombinant Unknown Completed [facility] [place] SARS-COV-2 COVID-19 PFIZER VACCINE Unknown Completed [facility] [place] SARS-COV-2 COVID-19 PFIZER VACCINE Unknown Completed [facility] [place] TDAP Unknown Completed [facility] [place] Influenza Virus Vaccine,quad Im,preserve Free 65+ (FLUAD) Unknown Completed [facility] [place] SARS-COV-2 COVID-19 PFIZER VACCINE Unknown Completed [facility] [place] Influenza Virus Vaccine,quad Im,preserve Free 65+ (FLUAD) Unknown Completed [facility] [place] SARS-COV-2 COVID-19 CLARISSA-SUCROSE VACCINE 12 YRS+, BIVALENT 0.3ML, IM, (PFIZER MEZA TOP) Unknown Completed [facility] [place] Pneumococcal 20 Conjugate, PCV20 (Prevnar 20) Unknown Completed [facility] [place] Influenza Virus Vaccine,quad Im,preserve Free 65+ (FLUAD) Unknown Completed [facility] [place] SARS-COV-2 COVID 19 CLARISSA SUCROSE VACCINE 12+, , 0.3 ML (30 MCG), IM PFIZER (MEZA TOP) Unknown Completed [facility] [place] Zoster Vaccine Recombinant Unknown Completed [facility] [place] Zoster Vaccine Recombinant Unknown Completed [facility] [place] SARS-COV-2 COVID-19 PFIZER VACCINE Unknown Completed [facility] [place] SARS-COV-2 COVID-19 PFIZER VACCINE Unknown Completed [facility] [place] TDAP Unknown Completed [facility] [place] Influenza Virus Vaccine,quad Im,preserve Free 65+ (FLUAD) Unknown Completed [facility] [place] SARS-COV-2 COVID-19 PFIZER VACCINE Unknown Completed [facility] [place] Influenza Virus Vaccine,quad Im,preserve Free 65+ (FLUAD) Unknown Completed [facility] [place] SARS-COV-2 COVID-19 CLARISSA-SUCROSE VACCINE 12 YRS+, BIVALENT 0.3ML, IM, (PFIZER MEZA TOP) Unknown Completed [facility] [place] Pneumococcal 20 Conjugate, PCV20 (Prevnar 20) Unknown Completed [facility] [place] Influenza Virus Vaccine,quad Im,preserve Free 65+ (FLUAD) Unknown Completed [facility] [place] SARS-COV-2 COVID 19 CLARISSA SUCROSE VACCINE 12+, [id number], 0.3 ML (30 MCG), IM PFIZER (MEZA TOP) Unknown Completed [facility] [place] Zoster Vaccine Recombinant Unknown Completed [facility] [place] Zoster Vaccine Recombinant Unknown Completed [facility] [place] SARS-COV-2 COVID-19 PFIZER VACCINE Unknown Completed [facility] [place] SARS-COV-2 COVID-19 PFIZER VACCINE Unknown Completed [facility] [place] TDAP Unknown Completed [facility] [place] Influenza Virus Vaccine,quad Im,preserve Free 65+ (FLUAD) Unknown Completed [facility] [place] SARS-COV-2 COVID-19 PFIZER VACCINE Unknown Completed [facility] [place] Influenza Virus Vaccine,quad Im,preserve Free 65+ (FLUAD) Unknown Completed [facility] [place] SARS-COV-2 COVID-19 CLARISSA-SUCROSE VACCINE 12 YRS+, BIVALENT 0.3ML, IM, (PFIZER MEZA TOP) Unknown Completed [facility] [place] Pneumococcal 20 Conjugate, PCV20 (Prevnar 20) Unknown Completed [facility] [place] Influenza Virus Vaccine,quad Im,preserve Free 65+ (FLUAD) Unknown Completed [facility] [place] SARS-COV-2 COVID 19 CLARISSA SUCROSE VACCINE 12+, , 0.3 ML (30 MCG), IM PFIZER (MEZA TOP) Unknown Completed [facility] [place] Zoster Vaccine Recombinant Unknown Completed [facility] [place] Zoster Vaccine Recombinant Unknown Completed [facility] [place] SARS-COV-2 COVID-19 PFIZER VACCINE Unknown Completed [facility] [place] SARS-COV-2 COVID-19 PFIZER VACCINE Unknown Completed [facility] [place] TDAP Unknown Completed [facility] [place] Influenza Virus Vaccine,quad Im,preserve Free 65+ (FLUAD) Unknown Completed [facility] [place] SARS-COV-2 COVID-19 PFIZER VACCINE Unknown Completed [facility] [place] Influenza Virus Vaccine,quad Im,preserve Free 65+ (FLUAD) Unknown Completed [facility] [place] SARS-COV-2 COVID-19 CLARISSA-SUCROSE VACCINE 12 YRS+, BIVALENT 0.3ML, IM, (PFIZER MEZA TOP) Unknown Completed [facility] [place] Pneumococcal 20 Conjugate, PCV20 (Prevnar 20) Unknown Completed [facility] [place] Influenza Virus Vaccine,quad Im,preserve Free 65+ (FLUAD) Unknown Completed [facility] [place] SARS-COV-2 COVID 19 CLARISSA SUCROSE VACCINE 12+, [id number], 0.3 ML (30 MCG), IM PFIZER (MEZA TOP) Unknown Completed [facility] [place] Zoster Vaccine Recombinant Unknown Completed [facility] [place] Zoster Vaccine Recombinant Unknown Completed [facility] [place] SARS-COV-2 COVID-19 PFIZER VACCINE Unknown Completed [facility] [place] SARS-COV-2 COVID-19 PFIZER VACCINE Unknown Completed [facility] [place] TDAP Unknown Completed [facility] [place] Influenza Virus Vaccine,quad Im,preserve Free 65+ (FLUAD) Unknown Completed [facility] [place] SARS-COV-2 COVID-19 PFIZER VACCINE Unknown Completed [facility] [place] Influenza Virus Vaccine,quad Im,preserve Free 65+ (FLUAD) Unknown Completed [facility] [place] SARS-COV-2 COVID-19 CLARISSA-SUCROSE VACCINE 12 YRS+, BIVALENT 0.3ML, IM, (PFIZER MEZA TOP) Unknown Completed [facility] [place] Pneumococcal 20 Conjugate, PCV20 (Prevnar 20) Unknown Completed [facility] [place] Influenza Virus Vaccine,quad Im,preserve Free 65+ (FLUAD) Unknown Completed [facility] [place] SARS-COV-2 COVID 19 CLARISSA SUCROSE VACCINE 12+, , 0.3 ML (30 MCG), IM PFIZER (MEZA TOP) Unknown Completed [facility] [place] Zoster Vaccine Recombinant Unknown Completed [facility] [place] Zoster Vaccine Recombinant Unknown Completed [facility] [place] SARS-COV-2 COVID-19 PFIZER VACCINE Unknown Completed [facility] [place] SARS-COV-2 COVID-19 PFIZER VACCINE Unknown Completed [facility] [place] TDAP Unknown Completed [facility] [place] Influenza Virus Vaccine,quad Im,preserve Free 65+ (FLUAD) Unknown Completed [facility] [place] SARS-COV-2 COVID-19 PFIZER VACCINE Unknown Completed [facility] [place] Influenza Virus Vaccine,quad Im,preserve Free 65+ (FLUAD) Unknown Completed [facility] [place] SARS-COV-2 COVID-19 CLARISSA-SUCROSE VACCINE 12 YRS+, BIVALENT 0.3ML, IM, (PFIZER MEZA TOP) Unknown Completed [facility] [place] Pneumococcal 20 Conjugate, PCV20 (Prevnar 20) Unknown Completed [facility] [place] Influenza Virus Vaccine,quad Im,preserve Free 65+ (FLUAD) Unknown Completed [facility] [place] SARS-COV-2 COVID 19 CLARISSA SUCROSE VACCINE 12+, , 0.3 ML (30 MCG), IM PFIZER (MEZA TOP) Unknown Completed [facility] [place] Zoster Vaccine Recombinant Unknown Completed [facility] [place] Zoster Vaccine Recombinant Unknown Completed [facility] [place] SARS-COV-2 COVID-19 PFIZER VACCINE Unknown Completed [facility] [place] SARS-COV-2 COVID-19 PFIZER VACCINE Unknown Completed [facility] [place] TDAP Unknown Completed [facility] [place] Influenza Virus Vaccine,quad Im,preserve Free 65+ (FLUAD) Unknown Completed [facility] [place] SARS-COV-2 COVID-19 PFIZER VACCINE Unknown Completed [facility] [place] Influenza Virus Vaccine,quad Im,preserve Free 65+ (FLUAD) Unknown Completed [facility] [place] SARS-COV-2 COVID-19 CLARISSA-SUCROSE VACCINE 12 YRS+, BIVALENT 0.3ML, IM, (PFIZER MEZA TOP) Unknown Completed [facility] [place] Pneumococcal 20 Conjugate, PCV20 (Prevnar 20) Unknown Completed [facility] [place] Influenza Virus Vaccine,quad Im,preserve Free 65+ (FLUAD) Unknown Completed [facility] [place] SARS-COV-2 COVID 19 CLARISSA SUCROSE VACCINE 12+, [id number], 0.3 ML (30 MCG), IM PFIZER (MEZA TOP) Unknown Completed [facility] [place] Zoster Vaccine Recombinant Unknown Completed [facility] [place] Zoster Vaccine Recombinant Unknown Completed [facility] [place] SARS-COV-2 COVID-19 PFIZER VACCINE Unknown Completed [facility] [place] SARS-COV-2 COVID-19 PFIZER VACCINE Unknown Completed [facility] [place] TDAP Unknown Completed [facility] [place] Influenza Virus Vaccine,quad Im,preserve Free 65+ (FLUAD) Unknown Completed [facility] [place] SARS-COV-2 COVID-19 PFIZER VACCINE Unknown Completed [facility] [place] Influenza Virus Vaccine,quad Im,preserve Free 65+ (FLUAD) Unknown Completed [facility] [place] SARS-COV-2 COVID-19 CLARISSA-SUCROSE VACCINE 12 YRS+, BIVALENT 0.3ML, IM, (PFIZER MEZA TOP) Unknown Completed [facility] [place] Pneumococcal 20 Conjugate, PCV20 (Prevnar 20) Unknown Completed [facility] [place] Influenza Virus Vaccine,quad Im,preserve Free 65+ (FLUAD) Unknown Completed [facility] [place] SARS-COV-2 COVID 19 CLARISSA SUCROSE VACCINE 12+, [id number], 0.3 ML (30 MCG), IM PFIZER (MEZA TOP) Unknown Completed [facility] [place] Zoster Vaccine Recombinant Unknown Completed [facility] [place] Zoster Vaccine Recombinant Unknown Completed [facility] [place] SARS-COV-2 COVID-19 PFIZER VACCINE Unknown Completed [facility] [place] SARS-COV-2 COVID-19 PFIZER VACCINE Unknown Completed [facility] [place] TDAP Unknown Completed [facility] [place] Influenza Virus Vaccine,quad Im,preserve Free 65+ (FLUAD) Unknown Completed [facility] [place] SARS-COV-2 COVID-19 PFIZER VACCINE Unknown Completed [facility] [place] Influenza Virus Vaccine,quad Im,preserve Free 65+ (FLUAD) Unknown Completed [facility] [place] SARS-COV-2 COVID-19 CLARISSA-SUCROSE VACCINE 12 YRS+, BIVALENT 0.3ML, IM, (PFIZER MEZA TOP) Unknown Completed [facility] [place] Pneumococcal 20 Conjugate, PCV20 (Prevnar 20) Unknown Completed [facility] [place] Influenza Virus Vaccine,quad Im,preserve Free 65+ (FLUAD) Unknown Completed [facility] [place] SARS-COV-2 COVID 19 CLARISSA SUCROSE VACCINE 12+, [id number], 0.3 ML (30 MCG), IM PFIZER (MEZA TOP) Unknown Completed [facility] [place] Zoster Vaccine Recombinant Unknown Completed [facility] [place] Zoster Vaccine Recombinant Unknown Completed [facility] [place] SARS-COV-2 COVID-19 PFIZER VACCINE Unknown Completed [facility] [place] SARS-COV-2 COVID-19 PFIZER VACCINE Unknown Completed [facility] [place] TDAP Unknown Completed [facility] [place] Influenza Virus Vaccine,quad Im,preserve Free 65+ (FLUAD) Unknown Completed [facility] [place] SARS-COV-2 COVID-19 PFIZER VACCINE Unknown Completed [facility] [place] Influenza Virus Vaccine,quad Im,preserve Free 65+ (FLUAD) Unknown Completed [facility] [place] SARS-COV-2 COVID-19 CLARISSA-SUCROSE VACCINE 12 YRS+, BIVALENT 0.3ML, IM, (PFIZER MEZA TOP) Unknown Completed [facility] Pneumococcal 20 Conjugate, PCV20 (Prevnar 20) Unknown Completed [facility] Influenza Virus Vaccine,quad Im,preserve Free 65+ (FLUAD) Unknown Completed [facility] SARS-COV-2 COVID 19 CLARISSA SUCROSE VACCINE 12+, 2760-1950, 0.3 ML (30 MCG), IM PFIZER (MEZA TOP) Unknown Completed [facility] Zoster Vaccine Recombinant Unknown Completed [facility] Zoster Vaccine Recombinant Unknown Completed [facility] SARS-COV-2 COVID-19 PFIZER VACCINE Unknown Completed [facility] SARS-COV-2 COVID-19 PFIZER VACCINE Unknown Completed [facility] TDAP Unknown Completed [facility] Influenza Virus Vaccine,quad Im,preserve Free 65+ (FLUAD) Unknown Completed [facility] SARS-COV-2 COVID-19 PFIZER VACCINE Unknown Completed [facility] Influenza Virus Vaccine,quad Im,preserve Free 65+ (FLUAD) Unknown Completed [facility] SARS-COV-2 COVID-19 CLARISSA-SUCROSE VACCINE 12 YRS+, BIVALENT 0.3ML, IM, (PFIZER MEZA TOP) Unknown Completed [facility] Pneumococcal 20 Conjugate, PCV20 (Prevnar 20) Unknown Completed [facility] Influenza Virus Vaccine,quad Im,preserve Free 65+ (FLUAD) Unknown Completed [facility] SARS-COV-2 COVID 19 CLARISSA SUCROSE VACCINE 12+, [id number], 0.3 ML (30 MCG), IM PFIZER (MEZA TOP) Unknown Completed [facility] Zoster Vaccine Recombinant Unknown Completed [facility] Zoster Vaccine Recombinant Unknown Completed [facility] SARS-COV-2 COVID-19 PFIZER VACCINE Unknown Completed [facility] SARS-COV-2 COVID-19 PFIZER VACCINE Unknown Completed [facility] TDAP Unknown Completed [facility] Influenza Virus Vaccine,quad Im,preserve Free 65+ (FLUAD) Unknown Completed [facility] SARS-COV-2 COVID-19 PFIZER VACCINE Unknown Completed [facility] Influenza Virus Vaccine,quad Im,preserve Free 65+ (FLUAD) Unknown Completed [facility] SARS-COV-2 COVID-19 CLARISSA-SUCROSE VACCINE 12 YRS+, BIVALENT 0.3ML, IM, (PFIZER MEZA TOP) Unknown Completed [facility] Pneumococcal 20 Conjugate, PCV20 (Prevnar 20) Unknown Completed [facility] Influenza Virus Vaccine,quad Im,preserve Free 65+ (FLUAD) Unknown Completed [facility] SARS-COV-2 COVID 19 CLARISSA SUCROSE VACCINE 12+, [id number], 0.3 ML (30 MCG), IM PFIZER (MEZA TOP) Unknown Completed [facility] Zoster Vaccine Recombinant Unknown Completed [facility] Zoster Vaccine Recombinant Unknown Completed [facility] SARS-COV-2 COVID-19 PFIZER VACCINE Unknown Completed [facility] SARS-COV-2 COVID-19 PFIZER VACCINE Unknown Completed [facility] TDAP Unknown Completed [facility] Influenza Virus Vaccine,quad Im,preserve Free 65+ (FLUAD) Unknown Completed [facility] SARS-COV-2 COVID-19 PFIZER VACCINE Unknown Completed [facility] Influenza Virus Vaccine,quad Im,preserve Free 65+ (FLUAD) Unknown Completed [facility] SARS-COV-2 COVID-19 CLARISSA-SUCROSE VACCINE 12 YRS+, BIVALENT 0.3ML, IM, (PFIZER MEZA TOP) Unknown Completed [facility] Pneumococcal 20 Conjugate, PCV20 (Prevnar 20) Unknown Completed [facility] Influenza Virus Vaccine,quad Im,preserve Free 65+ (FLUAD) Unknown Completed [facility] SARS-COV-2 COVID 19 CLARISSA SUCROSE VACCINE 12+, [id number], 0.3 ML (30 MCG), IM PFIZER (MEZA TOP) Unknown Completed [facility] Zoster Vaccine Recombinant Unknown Completed [facility] Zoster Vaccine Recombinant Unknown Completed [facility] SARS-COV-2 COVID-19 PFIZER VACCINE Unknown Completed [facility] SARS-COV-2 COVID-19 PFIZER VACCINE Unknown Completed [facility] TDAP Unknown Completed [facility] Influenza Virus Vaccine,quad Im,preserve Free 65+ (FLUAD) Unknown Completed [facility] SARS-COV-2 COVID-19 PFIZER VACCINE Unknown Completed [facility] Influenza Virus Vaccine,quad Im,preserve Free 65+ (FLUAD) Unknown Completed [facility] SARS-COV-2 COVID-19 CLARISSA-SUCROSE VACCINE 12 YRS+, BIVALENT 0.3ML, IM, (PFIZER MEZA TOP) Unknown Completed [facility] Pneumococcal 20 Conjugate, PCV20 (Prevnar 20) Unknown Completed [facility] Influenza Virus Vaccine,quad Im,preserve Free 65+ (FLUAD) Unknown Completed [facility] SARS-COV-2 COVID 19 CLARISSA SUCROSE VACCINE 12+, 5617-1926, 0.3 ML (30 MCG), IM PFIZER (MEZA TOP) Unknown Completed [facility] Zoster Vaccine Recombinant Unknown Completed [facility] Zoster Vaccine Recombinant Unknown Completed [facility] SARS-COV-2 COVID-19 PFIZER VACCINE Unknown Completed [facility] SARS-COV-2 COVID-19 PFIZER VACCINE Unknown Completed [facility] TDAP Unknown Completed [facility] Influenza Virus Vaccine,quad Im,preserve Free 65+ (FLUAD) Unknown Completed [facility] SARS-COV-2 COVID-19 PFIZER VACCINE Unknown Completed [facility] Influenza Virus Vaccine,quad Im,preserve Free 65+ (FLUAD) Unknown Completed [facility] SARS-COV-2 COVID-19 CLARISSA-SUCROSE VACCINE 12 YRS+, BIVALENT 0.3ML, IM, (PFIZER MEZA TOP) Unknown Completed [facility] Pneumococcal 20 Conjugate, PCV20 (Prevnar 20) Unknown Completed [facility] Influenza Virus Vaccine,quad Im,preserve Free 65+ (FLUAD) Unknown Completed [facility] SARS-COV-2 COVID 19 CLARISSA SUCROSE VACCINE 12+, 0538-9120, 0.3 ML (30 MCG), IM PFIZER (MEZA TOP) Unknown Completed [facility] Zoster Vaccine Recombinant Unknown Completed [facility] Zoster Vaccine Recombinant Unknown Completed [facility] SARS-COV-2 COVID-19 PFIZER VACCINE Unknown Completed [facility] SARS-COV-2 COVID-19 PFIZER VACCINE Unknown Completed [facility] TDAP Unknown Completed [facility] Influenza Virus Vaccine,quad Im,preserve Free 65+ (FLUAD) Unknown Completed [facility] SARS-COV-2 COVID-19 PFIZER VACCINE Unknown Completed [facility] Influenza Virus Vaccine,quad Im,preserve Free 65+ (FLUAD) Unknown Completed [facility] SARS-COV-2 COVID-19 CLARISSA-SUCROSE VACCINE 12 YRS+, BIVALENT 0.3ML, IM, (PFIZER MEZA TOP) Unknown Completed [facility] Pneumococcal 20 Conjugate, PCV20 (Prevnar 20) Unknown Completed [facility] Influenza Virus Vaccine,quad Im,preserve Free 65+ (FLUAD) Unknown Completed [facility] SARS-COV-2 COVID 19 CLARISSA SUCROSE VACCINE 12+, 0426-1643, 0.3 ML (30 MCG), IM PFIZER (MEZA TOP) Unknown Completed [facility] Zoster Vaccine Recombinant Unknown Completed [facility] Zoster Vaccine Recombinant Unknown Completed [facility] SARS-COV-2 COVID-19 PFIZER VACCINE Unknown Completed [facility] SARS-COV-2 COVID-19 PFIZER VACCINE Unknown Completed [facility] TDAP Unknown Completed [facility] Influenza Virus Vaccine,quad Im,preserve Free 65+ (FLUAD) Unknown Completed [facility] SARS-COV-2 COVID-19 PFIZER VACCINE Unknown Completed [facility] Influenza Virus Vaccine,quad Im,preserve Free 65+ (FLUAD) Unknown Completed [facility] SARS-COV-2 COVID-19 CLARISSA-SUCROSE VACCINE 12 YRS+, BIVALENT 0.3ML, IM, (PFIZER MEZA TOP) Unknown Completed [facility] Pneumococcal 20 Conjugate, PCV20 (Prevnar 20) Unknown Completed [facility] Influenza Virus Vaccine,quad Im,preserve Free 65+ (FLUAD) Unknown Completed [facility] SARS-COV-2 COVID 19 CLARISSA SUCROSE VACCINE 12+, 2604-9278, 0.3 ML (30 MCG), IM PFIZER (MEZA TOP) Unknown Completed [facility] Zoster Vaccine Recombinant Unknown Completed [facility] Zoster Vaccine Recombinant Unknown Completed [facility] SARS-COV-2 COVID-19 PFIZER VACCINE Unknown Completed [facility] SARS-COV-2 COVID-19 PFIZER VACCINE Unknown Completed [facility] TDAP Unknown Completed [facility] Influenza Virus Vaccine,quad Im,preserve Free 65+ (FLUAD) Unknown Completed [facility] SARS-COV-2 COVID-19 PFIZER VACCINE Unknown Completed [facility] Influenza Virus Vaccine,quad Im,preserve Free 65+ (FLUAD) Unknown Completed [facility] SARS-COV-2 COVID-19 CLARISSA-SUCROSE VACCINE 12 YRS+, BIVALENT 0.3ML, IM, (PFIZER MEZA TOP) Unknown Completed [facility] Pneumococcal 20 Conjugate, PCV20 (Prevnar 20) Unknown Completed [facility] Influenza Virus Vaccine,quad Im,preserve Free 65+ (FLUAD) Unknown Completed [facility] SARS-COV-2 COVID 19 CLARISSA SUCROSE VACCINE 12+, , 0.3 ML (30 MCG), IM PFIZER (MEZA TOP) Unknown Completed [facility] Zoster Vaccine Recombinant Unknown Completed [facility] Zoster Vaccine Recombinant Unknown Completed [facility] SARS-COV-2 COVID-19 PFIZER VACCINE Unknown Completed [facility] SARS-COV-2 COVID-19 PFIZER VACCINE Unknown Completed [facility] TDAP Unknown Completed [facility] Influenza Virus Vaccine,quad Im,preserve Free 65+ (FLUAD) Unknown Completed [facility] SARS-COV-2 COVID-19 PFIZER VACCINE Unknown Completed [facility] Influenza Virus Vaccine,quad Im,preserve Free 65+ (FLUAD) Unknown Completed [facility] SARS-COV-2 COVID-19 CLARISSA-SUCROSE VACCINE 12 YRS+, BIVALENT 0.3ML, IM, (PFIZER MEAZ TOP) Unknown Completed [facility] Pneumococcal 20 Conjugate, PCV20 (Prevnar 20) Unknown Completed [facility] Influenza Virus Vaccine,quad Im,preserve Free 65+ (FLUAD) Unknown Completed [facility] SARS-COV-2 COVID 19 CLARISSA SUCROSE VACCINE 12+, 0331-1000, 0.3 ML (30 MCG), IM PFIZER (MEZA TOP) Unknown Completed [facility] Zoster Vaccine Recombinant Unknown Completed [facility] Zoster Vaccine Recombinant Unknown Completed [facility] SARS-COV-2 COVID-19 PFIZER VACCINE Unknown Completed [facility] SARS-COV-2 COVID-19 PFIZER VACCINE Unknown Completed [facility] TDAP Unknown Completed [facility] Influenza Virus Vaccine,quad Im,preserve Free 65+ (FLUAD) Unknown Completed [facility] SARS-COV-2 COVID-19 PFIZER VACCINE Unknown Completed [facility] Influenza Virus Vaccine,quad Im,preserve Free 65+ (FLUAD) Unknown Completed [facility] SARS-COV-2 COVID-19 CLARISSA-SUCROSE VACCINE 12 YRS+, BIVALENT 0.3ML, IM, (PFIZER MEZA TOP) Unknown Completed [facility] Pneumococcal 20 Conjugate, PCV20 (Prevnar 20) Unknown Completed [facility] Influenza Virus Vaccine,quad Im,preserve Free 65+ (FLUAD) Unknown Completed [facility] SARS-COV-2 COVID 19 CLARISSA SUCROSE VACCINE 12+, 2926-7593, 0.3 ML (30 MCG), IM PFIZER (MEZA TOP) Unknown Completed [facility] Zoster Vaccine Recombinant Unknown Completed [facility] Zoster Vaccine Recombinant Unknown Completed [facility] SARS-COV-2 COVID-19 PFIZER VACCINE Unknown Completed [facility] SARS-COV-2 COVID-19 PFIZER VACCINE Unknown Completed [facility] TDAP Unknown Completed [facility] Influenza Virus Vaccine,quad Im,preserve Free 65+ (FLUAD) Unknown Completed [facility] SARS-COV-2 COVID-19 PFIZER VACCINE Unknown Completed [facility] Influenza Virus Vaccine,quad Im,preserve Free 65+ (FLUAD) Unknown Completed [facility] SARS-COV-2 COVID-19 CLARISSA-SUCROSE VACCINE 12 YRS+, BIVALENT 0.3ML, IM, (PFIZER MEZA TOP) Unknown Completed [facility] Pneumococcal 20 Conjugate, PCV20 (Prevnar 20) Unknown Completed [facility] Influenza Virus Vaccine,quad Im,preserve Free 65+ (FLUAD) Unknown Completed [facility] SARS-COV-2 COVID 19 CLARISSA SUCROSE VACCINE 12+, 2672-8132, 0.3 ML (30 MCG), IM PFIZER (MEZA TOP) Unknown Completed [facility] Zoster Vaccine Recombinant Unknown Completed [facility] Zoster Vaccine Recombinant Unknown Completed [facility] SARS-COV-2 COVID-19 PFIZER VACCINE Unknown Completed [facility] SARS-COV-2 COVID-19 PFIZER VACCINE Unknown Completed [facility] TDAP Unknown Completed [facility] Influenza Virus Vaccine,quad Im,preserve Free 65+ (FLUAD) Unknown Completed [facility] SARS-COV-2 COVID-19 PFIZER VACCINE Unknown Completed [facility] Influenza Virus Vaccine,quad Im,preserve Free 65+ (FLUAD) Unknown Completed [facility] SARS-COV-2 COVID-19 CLARISSA-SUCROSE VACCINE 12 YRS+, BIVALENT 0.3ML, IM, (PFIZER MEZA TOP) Unknown Completed [facility] Pneumococcal 20 Conjugate, PCV20 (Prevnar 20) Unknown Completed [facility] Influenza Virus Vaccine,quad Im,preserve Free 65+ (FLUAD) Unknown Completed [facility] SARS-COV-2 COVID 19 CLARISSA SUCROSE VACCINE 12+, 5895-9819, 0.3 ML (30 MCG), IM PFIZER (MEZA TOP) Unknown Completed [facility] Zoster Vaccine Recombinant Unknown Completed [facility] Zoster Vaccine Recombinant Unknown Completed [facility] SARS-COV-2 COVID-19 PFIZER VACCINE Unknown Completed [facility] SARS-COV-2 COVID-19 PFIZER VACCINE Unknown Completed [facility] TDAP Unknown Completed [facility] Influenza Virus Vaccine,quad Im,preserve Free 65+ (FLUAD) Unknown Completed [facility] SARS-COV-2 COVID-19 PFIZER VACCINE Unknown Completed [facility] Influenza Virus Vaccine,quad Im,preserve Free 65+ (FLUAD) Unknown Completed [facility] SARS-COV-2 COVID-19 CLARISSA-SUCROSE VACCINE 12 YRS+, BIVALENT 0.3ML, IM, (PFIZER MEZA TOP) Unknown Completed [facility] Pneumococcal 20 Conjugate, PCV20 (Prevnar 20) Unknown Completed [facility] Influenza Virus Vaccine,quad Im,preserve Free 65+ (FLUAD) Unknown Completed [facility] SARS-COV-2 COVID 19 CLARISSA SUCROSE VACCINE 12+, 3729-8719, 0.3 ML (30 MCG), IM PFIZER (MEZA TOP) Unknown Completed [facility] Zoster Vaccine Recombinant Unknown Completed [facility] Zoster Vaccine Recombinant Unknown Completed [facility] SARS-COV-2 COVID-19 PFIZER VACCINE Unknown Completed [facility] SARS-COV-2 COVID-19 PFIZER VACCINE Unknown Completed [facility] TDAP Unknown Completed [facility] Influenza Virus Vaccine,quad Im,preserve Free 65+ (FLUAD) Unknown Completed [facility] SARS-COV-2 COVID-19 PFIZER VACCINE Unknown Completed [facility] Influenza Virus Vaccine,quad Im,preserve Free 65+ (FLUAD) Unknown Completed [facility] SARS-COV-2 COVID-19 CLARISSA-SUCROSE VACCINE 12 YRS+, BIVALENT 0.3ML, IM, (PFIZER MEZA TOP) Unknown Completed [facility] Pneumococcal 20 Conjugate, PCV20 (Prevnar 20) Unknown Completed [facility] Influenza Virus Vaccine,quad Im,preserve Free 65+ (FLUAD) Unknown Completed [facility] SARS-COV-2 COVID 19 CLARISSA SUCROSE VACCINE 12+, 2080-9960, 0.3 ML (30 MCG), IM PFIZER (MEZA TOP) Unknown Completed [facility] Zoster Vaccine Recombinant Unknown Completed [facility] Zoster Vaccine Recombinant Unknown Completed [facility] SARS-COV-2 COVID-19 PFIZER VACCINE Unknown Completed [facility] SARS-COV-2 COVID-19 PFIZER VACCINE Unknown Completed [facility] TDAP Unknown Completed [facility] Influenza Virus Vaccine,quad Im,preserve Free 65+ (FLUAD) Unknown Completed [facility] SARS-COV-2 COVID-19 PFIZER VACCINE Unknown Completed [facility] Influenza Virus Vaccine,quad Im,preserve Free 65+ (FLUAD) Unknown Completed [facility] SARS-COV-2 COVID-19 CLARISSA-SUCROSE VACCINE 12 YRS+, BIVALENT 0.3ML, IM, (PFIZER MEZA TOP) Unknown Completed [facility] Pneumococcal 20 Conjugate, PCV20 (Prevnar 20) Unknown Completed [facility] Influenza Virus Vaccine,quad Im,preserve Free 65+ (FLUAD) Unknown Completed [facility] SARS-COV-2 COVID 19 CLARISSA SUCROSE VACCINE 12+, 7715-3647, 0.3 ML (30 MCG), IM PFIZER (MEZA TOP) Unknown Completed [facility] Zoster Vaccine Recombinant Unknown Completed [facility] Zoster Vaccine Recombinant Unknown Completed [facility] SARS-COV-2 COVID-19 PFIZER VACCINE Unknown Completed [facility] SARS-COV-2 COVID-19 PFIZER VACCINE Unknown Completed [facility] TDAP Unknown Completed [facility] Influenza Virus Vaccine,quad Im,preserve Free 65+ (FLUAD) Unknown Completed [facility] SARS-COV-2 COVID-19 PFIZER VACCINE Unknown Completed [facility] Influenza Virus Vaccine,quad Im,preserve Free 65+ (FLUAD) Unknown Completed [facility] SARS-COV-2 COVID-19 CLARISSA-SUCROSE VACCINE 12 YRS+, BIVALENT 0.3ML, IM, (PFIZER MEZA TOP) Unknown Completed [facility] Pneumococcal 20 Conjugate, PCV20 (Prevnar 20) Unknown Completed [facility] Influenza Virus Vaccine,quad Im,preserve Free 65+ (FLUAD) Unknown Completed [facility] SARS-COV-2 COVID 19 CLARISSA SUCROSE VACCINE 12+, 6157-6878, 0.3 ML (30 MCG), IM PFIZER (MEZA TOP) Unknown Completed [facility] Zoster Vaccine Recombinant Unknown Completed [facility] Zoster Vaccine Recombinant Unknown Completed [facility] SARS-COV-2 COVID-19 PFIZER VACCINE Unknown Completed [facility] SARS-COV-2 COVID-19 PFIZER VACCINE Unknown Completed [facility] TDAP Unknown Completed [facility] Influenza Virus Vaccine,quad Im,preserve Free 65+ (FLUAD) Unknown Completed [facility] SARS-COV-2 COVID-19 PFIZER VACCINE Unknown Completed [facility] Influenza Virus Vaccine,quad Im,preserve Free 65+ (FLUAD) Unknown Completed [facility] SARS-COV-2 COVID-19 CLARISSA-SUCROSE VACCINE 12 YRS+, BIVALENT 0.3ML, IM, (PFIZER MEZA TOP) Unknown Completed [facility] Pneumococcal 20 Conjugate, PCV20 (Prevnar 20) Unknown Completed [facility] Influenza Virus Vaccine,quad Im,preserve Free 65+ (FLUAD) Unknown Completed [facility] SARS-COV-2 COVID 19 CLARISSA SUCROSE VACCINE 12+, 5041-6332, 0.3 ML (30 MCG), IM PFIZER (MEZA TOP) Unknown Completed [facility] Zoster Vaccine Recombinant Unknown Completed [facility] Zoster Vaccine Recombinant Unknown Completed [facility] SARS-COV-2 COVID-19 PFIZER VACCINE Unknown Completed [facility] SARS-COV-2 COVID-19 PFIZER VACCINE Unknown Completed [facility] TDAP Unknown Completed [facility] Influenza Virus Vaccine,quad Im,preserve Free 65+ (FLUAD) Unknown Completed [facility] SARS-COV-2 COVID-19 PFIZER VACCINE Unknown Completed [facility] Influenza Virus Vaccine,quad Im,preserve Free 65+ (FLUAD) Unknown Completed [facility] SARS-COV-2 COVID-19 CLARISSA-SUCROSE VACCINE 12 YRS+, BIVALENT 0.3ML, IM, (PFIZER MEZA TOP) Unknown Completed [facility] Pneumococcal 20 Conjugate, PCV20 (Prevnar 20) Unknown Completed [facility] Influenza Virus Vaccine,quad Im,preserve Free 65+ (FLUAD) Unknown Completed [facility] SARS-COV-2 COVID 19 CLARISSA SUCROSE VACCINE 12+, [id number], 0.3 ML (30 MCG), IM PFIZER (MEZA TOP) Unknown Completed [facility] Zoster Vaccine Recombinant Unknown Completed [facility] Zoster Vaccine Recombinant Unknown Completed [facility] SARS-COV-2 COVID-19 PFIZER VACCINE Unknown Completed [facility] SARS-COV-2 COVID-19 PFIZER VACCINE Unknown Completed [facility] TDAP Unknown Completed [facility] Influenza Virus Vaccine,quad Im,preserve Free 65+ (FLUAD) Unknown Completed [facility] SARS-COV-2 COVID-19 PFIZER VACCINE Unknown Completed [facility] Influenza Virus Vaccine,quad Im,preserve Free 65+ (FLUAD) Unknown Completed [facility] SARS-COV-2 COVID-19 CLARISSA-SUCROSE VACCINE 12 YRS+, BIVALENT 0.3ML, IM, (PFIZER MEZA TOP) Unknown Completed [facility] Pneumococcal 20 Conjugate, PCV20 (Prevnar 20) Unknown Completed [facility] Influenza Virus Vaccine,quad Im,preserve Free 65+ (FLUAD) Unknown Completed [facility] SARS-COV-2 COVID 19 CLARISSA SUCROSE VACCINE 12+, 2784-5735, 0.3 ML (30 MCG), IM PFIZER (MEZA TOP) Unknown Completed [facility] Zoster Vaccine Recombinant Unknown Completed [facility] Zoster Vaccine Recombinant Unknown Completed [facility] SARS-COV-2 COVID-19 PFIZER VACCINE Unknown Completed [facility] SARS-COV-2 COVID-19 PFIZER VACCINE Unknown Completed [facility] TDAP Unknown Completed [facility] Influenza Virus Vaccine,quad Im,preserve Free 65+ (FLUAD) Unknown Completed [facility] SARS-COV-2 COVID-19 PFIZER VACCINE Unknown Completed [facility] Influenza Virus Vaccine,quad Im,preserve Free 65+ (FLUAD) Unknown Completed [facility] SARS-COV-2 COVID-19 CLARISSA-SUCROSE VACCINE 12 YRS+, BIVALENT 0.3ML, IM, (PFIZER MEZA TOP) Unknown Completed [facility] Pneumococcal 20 Conjugate, PCV20 (Prevnar 20) Unknown Completed [facility] Influenza Virus Vaccine,quad Im,preserve Free 65+ (FLUAD) Unknown Completed [facility] SARS-COV-2 COVID 19 CLARISSA SUCROSE VACCINE 12+, [id number], 0.3 ML (30 MCG), IM PFIZER (MEZA TOP) Unknown Completed [facility] Zoster Vaccine Recombinant Unknown Completed [facility] Zoster Vaccine Recombinant Unknown Completed [facility] SARS-COV-2 COVID-19 PFIZER VACCINE Unknown Completed [facility] SARS-COV-2 COVID-19 PFIZER VACCINE Unknown Completed [facility] TDAP Unknown Completed [facility] Influenza Virus Vaccine,quad Im,preserve Free 65+ (FLUAD) Unknown Completed [facility] SARS-COV-2 COVID-19 PFIZER VACCINE Unknown Completed [facility] Influenza Virus Vaccine,quad Im,preserve Free 65+ (FLUAD) Unknown Completed [facility] SARS-COV-2 COVID-19 CLARISSA-SUCROSE VACCINE 12 YRS+, BIVALENT 0.3ML, IM, (PFIZER MEZA TOP) Unknown Completed [facility] Pneumococcal 20 Conjugate, PCV20 (Prevnar 20) Unknown Completed [facility] Influenza Virus Vaccine,quad Im,preserve Free 65+ (FLUAD) Unknown Completed [facility] SARS-COV-2 COVID 19 CLARISSA SUCROSE VACCINE 12+, [id number], 0.3 ML (30 MCG), IM PFIZER (MEZA TOP) Unknown Completed [facility] Zoster Vaccine Recombinant Unknown Completed [facility] Zoster Vaccine Recombinant Unknown Completed [facility] SARS-COV-2 COVID-19 PFIZER VACCINE Unknown Completed [facility] SARS-COV-2 COVID-19 PFIZER VACCINE Unknown Completed [facility] TDAP Unknown Completed [facility] Influenza Virus Vaccine,quad Im,preserve Free 65+ (FLUAD) Unknown Completed [facility] SARS-COV-2 COVID-19 PFIZER VACCINE Unknown Completed [facility] Influenza Virus Vaccine,quad Im,preserve Free 65+ (FLUAD) Unknown Completed [facility] SARS-COV-2 COVID-19 CLARISSA-SUCROSE VACCINE 12 YRS+, BIVALENT 0.3ML, IM, (PFIZER MEZA TOP) Unknown Completed [facility] Pneumococcal 20 Conjugate, PCV20 (Prevnar 20) Unknown Completed [facility] Influenza Virus Vaccine,quad Im,preserve Free 65+ (FLUAD) Unknown Completed [facility] SARS-COV-2 COVID 19 CLARISSA SUCROSE VACCINE 12+, [id number], 0.3 ML (30 MCG), IM PFIZER (MEZA TOP) Unknown Completed [facility] Zoster Vaccine Recombinant Unknown Completed [facility] Zoster Vaccine Recombinant Unknown Completed [facility] SARS-COV-2 COVID-19 PFIZER VACCINE Unknown Completed [facility] SARS-COV-2 COVID-19 PFIZER VACCINE Unknown Completed [facility] TDAP Unknown Completed [facility] Influenza Virus Vaccine,quad Im,preserve Free 65+ (FLUAD) Unknown Completed [facility] SARS-COV-2 COVID-19 PFIZER VACCINE Unknown Completed [facility] Influenza Virus Vaccine,quad Im,preserve Free 65+ (FLUAD) Unknown Completed [facility] SARS-COV-2 COVID-19 CLARISSA-SUCROSE VACCINE 12 YRS+, BIVALENT 0.3ML, IM, (PFIZER MEZA TOP) Unknown Completed [facility] Pneumococcal 20 Conjugate, PCV20 (Prevnar 20) Unknown Completed [facility] Influenza Virus Vaccine,quad Im,preserve Free 65+ (FLUAD) Unknown Completed [facility] SARS-COV-2 COVID 19 CLARISSA SUCROSE VACCINE 12+, [id number], 0.3 ML (30 MCG), IM PFIZER (MEZA TOP) Unknown Completed [facility] Zoster Vaccine Recombinant Unknown Completed [facility] Zoster Vaccine Recombinant Unknown Completed [facility] SARS-COV-2 COVID-19 PFIZER VACCINE Unknown Completed [facility] SARS-COV-2 COVID-19 PFIZER VACCINE Unknown Completed [facility] TDAP Unknown Completed [facility] Influenza Virus Vaccine,quad Im,preserve Free 65+ (FLUAD) Unknown Completed [facility] SARS-COV-2 COVID-19 PFIZER VACCINE Unknown Completed [facility] Influenza Virus Vaccine,quad Im,preserve Free 65+ (FLUAD) Unknown Completed [facility] SARS-COV-2 COVID-19 CLARISSA-SUCROSE VACCINE 12 YRS+, BIVALENT 0.3ML, IM, (PFIZER MEZA TOP) Unknown Completed [facility] Pneumococcal 20 Conjugate, PCV20 (Prevnar 20) Unknown Completed [facility] Influenza Virus Vaccine,quad Im,preserve Free 65+ (FLUAD) Unknown Completed [facility] SARS-COV-2 COVID 19 CLARISSA SUCROSE VACCINE 12+, [id number], 0.3 ML (30 MCG), IM PFIZER (MEZA TOP) Unknown Completed [facility] Zoster Vaccine Recombinant Unknown Completed [facility] Zoster Vaccine Recombinant Unknown Completed [facility] SARS-COV-2 COVID-19 PFIZER VACCINE Unknown Completed [facility] SARS-COV-2 COVID-19 PFIZER VACCINE Unknown Completed [facility] TDAP Unknown Completed [facility] Influenza Virus Vaccine,quad Im,preserve Free 65+ (FLUAD) Unknown Completed [facility] SARS-COV-2 COVID-19 PFIZER VACCINE Unknown Completed [facility] Influenza Virus Vaccine,quad Im,preserve Free 65+ (FLUAD) Unknown Completed [facility] SARS-COV-2 COVID-19 CLARISSA-SUCROSE VACCINE 12 YRS+, BIVALENT 0.3ML, IM, (PFIZER MEZA TOP) Unknown Completed [facility] Pneumococcal 20 Conjugate, PCV20 (Prevnar 20) Unknown Completed [facility] Influenza Virus Vaccine,quad Im,preserve Free 65+ (FLUAD) Unknown Completed [facility] SARS-COV-2 COVID 19 CLARISSA SUCROSE VACCINE 12+, [id number], 0.3 ML (30 MCG), IM PFIZER (MEZA TOP) Unknown Completed [facility] Zoster Vaccine Recombinant Unknown Completed [facility] Zoster Vaccine Recombinant Unknown Completed [facility] SARS-COV-2 COVID-19 PFIZER VACCINE Unknown Completed [facility] SARS-COV-2 COVID-19 PFIZER VACCINE Unknown Completed [facility] TDAP Unknown Completed [facility] Influenza Virus Vaccine,quad Im,preserve Free 65+ (FLUAD) Unknown Completed [facility] SARS-COV-2 COVID-19 PFIZER VACCINE Unknown Completed [facility] Influenza Virus Vaccine,quad Im,preserve Free 65+ (FLUAD) Unknown Completed [facility] SARS-COV-2 COVID-19 CLARISSA-SUCROSE VACCINE 12 YRS+, BIVALENT 0.3ML, IM, (PFIZER MEZA TOP) Unknown Completed [facility] Pneumococcal 20 Conjugate, PCV20 (Prevnar 20) Unknown Completed [facility] Influenza Virus Vaccine,quad Im,preserve Free 65+ (FLUAD) Unknown Completed [facility] SARS-COV-2 COVID 19 CLARISSA SUCROSE VACCINE 12+, [id number], 0.3 ML (30 MCG), IM PFIZER (MEZA TOP) Unknown Completed [facility] Zoster Vaccine Recombinant Unknown Completed [facility] Zoster Vaccine Recombinant Unknown Completed [facility] SARS-COV-2 COVID-19 PFIZER VACCINE Unknown Completed [facility] SARS-COV-2 COVID-19 PFIZER VACCINE Unknown Completed [facility] TDAP Unknown Completed [facility] Influenza Virus Vaccine,quad Im,preserve Free 65+ (FLUAD) Unknown Completed [facility] SARS-COV-2 COVID-19 PFIZER VACCINE Unknown Completed [facility] Influenza Virus Vaccine,quad Im,preserve Free 65+ (FLUAD) Unknown Completed [facility] SARS-COV-2 COVID-19 CLARISSA-SUCROSE VACCINE 12 YRS+, BIVALENT 0.3ML, IM, (PFIZER MEZA TOP) Unknown Completed [facility] Pneumococcal 20 Conjugate, PCV20 (Prevnar 20) Unknown Completed [facility] Influenza Virus Vaccine,quad Im,preserve Free 65+ (FLUAD) Unknown Completed [facility] SARS-COV-2 COVID 19 CLARISSA SUCROSE VACCINE 12+, [id number], 0.3 ML (30 MCG), IM PFIZER (MEZA TOP) Unknown Completed [facility] Zoster Vaccine Recombinant Unknown Completed [facility] Zoster Vaccine Recombinant Unknown Completed [facility] SARS-COV-2 COVID-19 PFIZER VACCINE Unknown Completed [facility] SARS-COV-2 COVID-19 PFIZER VACCINE Unknown Completed [facility] TDAP Unknown Completed [facility] Influenza Virus Vaccine,quad Im,preserve Free 65+ (FLUAD) Unknown Completed [facility] SARS-COV-2 COVID-19 PFIZER VACCINE Unknown Completed [facility] Influenza Virus Vaccine,quad Im,preserve Free 65+ (FLUAD) Unknown Completed [facility] SARS-COV-2 COVID-19 CLARISSA-SUCROSE VACCINE 12 YRS+, BIVALENT 0.3ML, IM, (PFIZER MEZA TOP) Unknown Completed [facility] Pneumococcal 20 Conjugate, PCV20 (Prevnar 20) Unknown Completed [facility] Influenza Virus Vaccine,quad Im,preserve Free 65+ (FLUAD) Unknown Completed [facility] SARS-COV-2 COVID 19 CLARISSA SUCROSE VACCINE 12, [id number], 0.3 ML (30 MCG), IM PFIZER (MEZA TOP) Unknown Completed [facility] Zoster Vaccine Recombinant Unknown Completed [facility] Zoster Vaccine Recombinant Unknown Completed [facility] SARS-COV-2 COVID-19 PFIZER VACCINE Unknown Completed [facility] SARS-COV-2 COVID-19 PFIZER VACCINE Unknown Completed [facility] TDAP Unknown Completed [facility] Influenza Virus Vaccine,quad Im,preserve Free 65+ (FLUAD) Unknown Completed [facility] SARS-COV-2 COVID-19 PFIZER VACCINE Unknown Completed [facility] Influenza Virus Vaccine,quad Im,preserve Free 65+ (FLUAD) Unknown Completed [facility] SARS-COV-2 COVID-19 CLARISSA-SUCROSE VACCINE 12 YRS+, BIVALENT 0.3ML, IM, (PFIZER MEZA TOP) Unknown Completed [facility] Pneumococcal 20 Conjugate, PCV20 (Prevnar 20) Unknown Completed [facility] Influenza Virus Vaccine,quad Im,preserve Free 65+ (FLUAD) Unknown Completed [facility] SARS-COV-2 COVID 19 CLARISSA SUCROSE VACCINE 12, [id number], 0.3 ML (30 MCG), IM PFIZER (MEZA TOP) Unknown Completed [facility] Zoster Vaccine Recombinant Unknown Completed [facility] Zoster Vaccine Recombinant Unknown Completed [facility] SARS-COV-2 COVID-19 PFIZER VACCINE Unknown Completed [facility] SARS-COV-2 COVID-19 PFIZER VACCINE Unknown Completed [facility] TDAP Unknown Completed [facility] Influenza Virus Vaccine,quad Im,preserve Free 65+ (FLUAD) Unknown Completed [facility] SARS-COV-2 COVID-19 PFIZER VACCINE Unknown Completed [facility] Influenza Virus Vaccine,quad Im,preserve Free 65+ (FLUAD) Unknown Completed [facility] SARS-COV-2 COVID-19 CLARISSA-SUCROSE VACCINE 12 YRS+, BIVALENT 0.3ML, IM, (PFIZER MEZA TOP) Unknown Completed [facility] Pneumococcal 20 Conjugate, PCV20 (Prevnar 20) Unknown Completed [facility] Influenza Virus Vaccine,quad Im,preserve Free 65+ (FLUAD) Unknown Completed [facility] SARS-COV-2 COVID 19 CLARISSA SUCROSE VACCINE 12, , 0.3 ML (30 MCG), IM PFIZER (MEZA TOP) Unknown Completed [facility] Zoster Vaccine Recombinant Unknown Completed [facility] Zoster Vaccine Recombinant Unknown Completed [facility] SARS-COV-2 COVID-19 PFIZER VACCINE Unknown Completed [facility] SARS-COV-2 COVID-19 PFIZER VACCINE Unknown Completed [facility] TDAP Unknown Completed [facility] Influenza Virus Vaccine,quad Im,preserve Free 65+ (FLUAD) Unknown Completed [facility] SARS-COV-2 COVID-19 PFIZER VACCINE Unknown Completed [facility] Influenza Virus Vaccine,quad Im,preserve Free 65+ (FLUAD) Unknown Completed [facility] SARS-COV-2 COVID-19 CLARISSA-SUCROSE VACCINE 12 YRS+, BIVALENT 0.3ML, IM, (PFIZER MEZA TOP) Unknown Completed [facility] Pneumococcal 20 Conjugate, PCV20 (Prevnar 20) Unknown Completed [facility] Influenza Virus Vaccine,quad Im,preserve Free 65+ (FLUAD) Unknown Completed [facility] SARS-COV-2 COVID 19 CLAIRSSA SUCROSE VACCINE 12+, [id number], 0.3 ML (30 MCG), IM PFIZER (MEZA TOP) Unknown Completed [facility] Zoster Vaccine Recombinant Unknown Completed [facility] Zoster Vaccine Recombinant Unknown Completed [facility] SARS-COV-2 COVID-19 PFIZER VACCINE Unknown Completed [facility] SARS-COV-2 COVID-19 PFIZER VACCINE Unknown Completed [facility] TDAP Unknown Completed [facility] Influenza Virus Vaccine,quad Im,preserve Free 65+ (FLUAD) Unknown Completed [facility] SARS-COV-2 COVID-19 PFIZER VACCINE Unknown Completed [facility] Influenza Virus Vaccine,quad Im,preserve Free 65+ (FLUAD) Unknown Completed [facility] SARS-COV-2 COVID-19 CLARISSA-SUCROSE VACCINE 12 YRS+, BIVALENT 0.3ML, IM, (PFIZER MEZA TOP) Unknown Completed [facility] Pneumococcal 20 Conjugate, PCV20 (Prevnar 20) Unknown Completed [facility] Influenza Virus Vaccine,quad Im,preserve Free 65+ (FLUAD) Unknown Completed [facility] SARS-COV-2 COVID 19 CLARISSA SUCROSE VACCINE 12+, [id number], 0.3 ML (30 MCG), IM PFIZER (MEZA TOP) Unknown Completed [facility] Zoster Vaccine Recombinant Unknown Completed [facility] Zoster Vaccine Recombinant Unknown Completed [facility] SARS-COV-2 COVID-19 PFIZER VACCINE Unknown Completed [facility] SARS-COV-2 COVID-19 PFIZER VACCINE Unknown Completed [facility] TDAP Unknown Completed [facility] Influenza Virus Vaccine,quad Im,preserve Free 65+ (FLUAD) Unknown Completed [facility] SARS-COV-2 COVID-19 PFIZER VACCINE Unknown Completed [facility] Influenza Virus Vaccine,quad Im,preserve Free 65+ (FLUAD) Unknown Completed [facility] SARS-COV-2 COVID-19 CLARISSA-SUCROSE VACCINE 12 YRS+, BIVALENT 0.3ML, IM, (PFIZER MEZA TOP) Unknown Completed [facility] Pneumococcal 20 Conjugate, PCV20 (Prevnar 20) Unknown Completed [facility] Influenza Virus Vaccine,quad Im,preserve Free 65+ (FLUAD) Unknown Completed [facility] SARS-COV-2 COVID 19 CLARISSA SUCROSE VACCINE 12+, [id number], 0.3 ML (30 MCG), IM PFIZER (MEZA TOP) Unknown Completed [facility] Zoster Vaccine Recombinant Unknown Completed [facility] Zoster Vaccine Recombinant Unknown Completed [facility] SARS-COV-2 COVID-19 PFIZER VACCINE Unknown Completed [facility] SARS-COV-2 COVID-19 PFIZER VACCINE Unknown Completed [facility] TDAP Unknown Completed [facility] Influenza Virus Vaccine,quad Im,preserve Free 65+ (FLUAD) Unknown Completed [facility] SARS-COV-2 COVID-19 PFIZER VACCINE Unknown Completed [facility] Influenza Virus Vaccine,quad Im,preserve Free 65+ (FLUAD) Unknown Completed [facility] SARS-COV-2 COVID-19 CLARISSA-SUCROSE VACCINE 12 YRS+, BIVALENT 0.3ML, IM, (PFIZER MEZA TOP) Unknown Completed [facility] Pneumococcal 20 Conjugate, PCV20 (Prevnar 20) Unknown Completed [facility] Influenza Virus Vaccine,quad Im,preserve Free 65+ (FLUAD) Unknown Completed [facility] SARS-COV-2 COVID 19 CLARISSA SUCROSE VACCINE 12+, , 0.3 ML (30 MCG), IM PFIZER (MEZA TOP) Unknown Completed [facility] Zoster Vaccine Recombinant Unknown Completed [facility] Zoster Vaccine Recombinant Unknown Completed [facility] SARS-COV-2 COVID-19 PFIZER VACCINE Unknown Completed [facility] SARS-COV-2 COVID-19 PFIZER VACCINE Unknown Completed [facility] TDAP Unknown Completed [facility] Influenza Virus Vaccine,quad Im,preserve Free 65+ (FLUAD) Unknown Completed [facility] SARS-COV-2 COVID-19 PFIZER VACCINE Unknown Completed [facility] Influenza Virus Vaccine,quad Im,preserve Free 65+ (FLUAD) Unknown Completed [facility] SARS-COV-2 COVID-19 CLARISSA-SUCROSE VACCINE 12 YRS+, BIVALENT 0.3ML, IM, (PFIZER MEZA TOP) Unknown Completed [facility] Pneumococcal 20 Conjugate, PCV20 (Prevnar 20) Unknown Completed [facility] Influenza Virus Vaccine,quad Im,preserve Free 65+ (FLUAD) Unknown Completed [facility] SARS-COV-2 COVID 19 CLARISSA SUCROSE VACCINE 12+, [id number], 0.3 ML (30 MCG), IM PFIZER (MEZA TOP) Unknown Completed [facility] Zoster Vaccine Recombinant Unknown Completed [facility] Zoster Vaccine Recombinant Unknown Completed [facility] SARS-COV-2 COVID-19 PFIZER VACCINE Unknown Completed [facility] SARS-COV-2 COVID-19 PFIZER VACCINE Unknown Completed [facility] TDAP Unknown Completed [facility] Influenza Virus Vaccine,quad Im,preserve Free 65+ (FLUAD) Unknown Completed [facility] SARS-COV-2 COVID-19 PFIZER VACCINE Unknown Completed [facility] Influenza Virus Vaccine,quad Im,preserve Free 65+ (FLUAD) Unknown Completed [facility] SARS-COV-2 COVID-19 CLARISSA-SUCROSE VACCINE 12 YRS+, BIVALENT 0.3ML, IM, (PFIZER MEZA TOP) Unknown Completed [facility] Pneumococcal 20 Conjugate, PCV20 (Prevnar 20) Unknown Completed [facility] Influenza Virus Vaccine,quad Im,preserve Free 65+ (FLUAD) Unknown Completed [facility] SARS-COV-2 COVID 19 CLARISSA SUCROSE VACCINE 12+, , 0.3 ML (30 MCG), IM PFIZER (MEZA TOP) Unknown Completed [facility] Zoster Vaccine Recombinant Unknown Completed [facility] Zoster Vaccine Recombinant Unknown Completed [facility] SARS-COV-2 COVID-19 PFIZER VACCINE Unknown Completed [facility] SARS-COV-2 COVID-19 PFIZER VACCINE Unknown Completed [facility] TDAP Unknown Completed [facility] Influenza Virus Vaccine,quad Im,preserve Free 65+ (FLUAD) Unknown Completed [facility] SARS-COV-2 COVID-19 PFIZER VACCINE Unknown Completed [facility] Influenza Virus Vaccine,quad Im,preserve Free 65+ (FLUAD) Unknown Completed [facility] SARS-COV-2 COVID-19 CLARISSA-SUCROSE VACCINE 12 YRS+, BIVALENT 0.3ML, IM, (PFIZER MEZA TOP) Unknown Completed [facility] Pneumococcal 20 Conjugate, PCV20 (Prevnar 20) Unknown Completed [facility] Influenza Virus Vaccine,quad Im,preserve Free 65+ (FLUAD) Unknown Completed [facility] SARS-COV-2 COVID 19 CLARISSA SUCROSE VACCINE 12+, [id number], 0.3 ML (30 MCG), IM PFIZER (MEZA TOP) Unknown Completed [facility] Zoster Vaccine Recombinant Unknown Completed [facility] Zoster Vaccine Recombinant Unknown Completed [facility] SARS-COV-2 COVID-19 PFIZER VACCINE Unknown Completed [facility] SARS-COV-2 COVID-19 PFIZER VACCINE Unknown Completed [facility] TDAP Unknown Completed [facility] Influenza Virus Vaccine,quad Im,preserve Free 65+ (FLUAD) Unknown Completed [facility] SARS-COV-2 COVID-19 PFIZER VACCINE Unknown Completed [facility] Influenza Virus Vaccine,quad Im,preserve Free 65+ (FLUAD) Unknown Completed [facility] SARS-COV-2 COVID-19 CLARISSA-SUCROSE VACCINE 12 YRS+, BIVALENT 0.3ML, IM, (PFIZER MEZA TOP) Unknown Completed [facility] Pneumococcal 20 Conjugate, PCV20 (Prevnar 20) Unknown Completed [facility] Influenza Virus Vaccine,quad Im,preserve Free 65+ (FLUAD) Unknown Completed [facility] SARS-COV-2 COVID 19 CLARISSA SUCROSE VACCINE , 0.3 ML (30 MCG), IM PFIZER (MEZA TOP) Unknown Completed [facility] Zoster Vaccine Recombinant Unknown Completed [facility] Zoster Vaccine Recombinant Unknown Completed [facility] SARS-COV-2 COVID-19 PFIZER VACCINE Unknown Completed [facility] SARS-COV-2 COVID-19 PFIZER VACCINE Unknown Completed [facility] TDAP Unknown Completed [facility] Influenza Virus Vaccine,quad Im,preserve Free 65+ (FLUAD) Unknown Completed [facility] SARS-COV-2 COVID-19 PFIZER VACCINE Unknown Completed [facility] Influenza Virus Vaccine,quad Im,preserve Free 65+ (FLUAD) Unknown Completed [facility] SARS-COV-2 COVID-19 CLARISSA-SUCROSE VACCINE 12 YRS+, BIVALENT 0.3ML, IM, (PFIZER MEZA TOP) Unknown Completed [facility] Pneumococcal 20 Conjugate, PCV20 (Prevnar 20) Unknown Completed [facility] Influenza Virus Vaccine,quad Im,preserve Free 65+ (FLUAD) Unknown Completed [facility] SARS-COV-2 COVID 19 CLARISSA SUCROSE VACCINE 12+, , 0.3 ML (30 MCG), IM PFIZER (MEZA TOP) Unknown Completed [facility] Zoster Vaccine Recombinant Unknown Completed [facility] Zoster Vaccine Recombinant Unknown Completed [facility] SARS-COV-2 COVID-19 PFIZER VACCINE Unknown Completed [facility] SARS-COV-2 COVID-19 PFIZER VACCINE Unknown Completed [facility] TDAP Unknown Completed [facility] Influenza Virus Vaccine,quad Im,preserve Free 65+ (FLUAD) Unknown Completed [facility] SARS-COV-2 COVID-19 PFIZER VACCINE Unknown Completed [facility] Influenza Virus Vaccine,quad Im,preserve Free 65+ (FLUAD) Unknown Completed [facility] SARS-COV-2 COVID-19 CLARISSA-SUCROSE VACCINE 12 YRS+, BIVALENT 0.3ML, IM, (PFIZER MEZA TOP) Unknown Completed [facility] Pneumococcal 20 Conjugate, PCV20 (Prevnar 20) Unknown Completed [facility] Influenza Virus Vaccine,quad Im,preserve Free 65+ (FLUAD) Unknown Completed [facility] SARS-COV-2 COVID 19 CLARISSA SUCROSE VACCINE 12+, , 0.3 ML (30 MCG), IM PFIZER (MEZA TOP) Unknown Completed [facility] Zoster Vaccine Recombinant Unknown Completed [facility] Zoster Vaccine Recombinant Unknown Completed [facility] SARS-COV-2 COVID-19 PFIZER VACCINE Unknown Completed [facility] SARS-COV-2 COVID-19 PFIZER VACCINE Unknown Completed [facility] TDAP Unknown Completed [facility] Influenza Virus Vaccine,quad Im,preserve Free 65+ (FLUAD) Unknown Completed [facility] SARS-COV-2 COVID-19 PFIZER VACCINE Unknown Completed [facility] Influenza Virus Vaccine,quad Im,preserve Free 65+ (FLUAD) Unknown Completed [facility] SARS-COV-2 COVID-19 CLARISSA-SUCROSE VACCINE 12 YRS+, BIVALENT 0.3ML, IM, (PFIZER MEZA TOP) Unknown Completed [facility] Pneumococcal 20 Conjugate, PCV20 (Prevnar 20) Unknown Completed [facility] Influenza Virus Vaccine,quad Im,preserve Free 65+ (FLUAD) Unknown Completed [facility] SARS-COV-2 COVID 19 CLARISSA SUCROSE VACCINE 12+, , 0.3 ML (30 MCG), IM PFIZER (MEZA TOP) Unknown Completed [facility] Zoster Vaccine Recombinant Unknown Completed [facility] Zoster Vaccine Recombinant Unknown Completed [facility] SARS-COV-2 COVID-19 PFIZER VACCINE Unknown Completed [facility] SARS-COV-2 COVID-19 PFIZER VACCINE Unknown Completed [facility] TDAP Unknown Completed [facility] Influenza Virus Vaccine,quad Im,preserve Free 65+ (FLUAD) Unknown Completed [facility] SARS-COV-2 COVID-19 PFIZER VACCINE Unknown Completed [facility] Influenza Virus Vaccine,quad Im,preserve Free 65+ (FLUAD) Unknown Completed [facility] SARS-COV-2 COVID-19 CLARISSA-SUCROSE VACCINE 12 YRS+, BIVALENT 0.3ML, IM, (PFIZER MEZA TOP) Unknown Completed [facility] Pneumococcal 20 Conjugate, PCV20 (Prevnar 20) Unknown Completed [facility] Influenza Virus Vaccine,quad Im,preserve Free 65+ (FLUAD) Unknown Completed [facility] SARS-COV-2 COVID 19 CLARISSA SUCROSE VACCINE 12+, , 0.3 ML (30 MCG), IM PFIZER (MEZA TOP) Unknown Completed [facility] Zoster Vaccine Recombinant Unknown Completed [facility] Zoster Vaccine Recombinant Unknown Completed [facility] SARS-COV-2 COVID-19 PFIZER VACCINE Unknown Completed [facility] SARS-COV-2 COVID-19 PFIZER VACCINE Unknown Completed [facility] TDAP Unknown Completed [facility] Influenza Virus Vaccine,quad Im,preserve Free 65+ (FLUAD) Unknown Completed [facility] SARS-COV-2 COVID-19 PFIZER VACCINE Unknown Completed [facility] Influenza Virus Vaccine,quad Im,preserve Free 65+ (FLUAD) Unknown Completed [facility] SARS-COV-2 COVID-19 CLARISSA-SUCROSE VACCINE 12 YRS+, BIVALENT 0.3ML, IM, (PFIZER MEZA TOP) Unknown Completed [facility] Pneumococcal 20 Conjugate, PCV20 (Prevnar 20) Unknown Completed [facility] Influenza Virus Vaccine,quad Im,preserve Free 65+ (FLUAD) Unknown Completed [facility] SARS-COV-2 COVID 19 CLARISSA SUCROSE VACCINE 12+, , 0.3 ML (30 MCG), IM PFIZER (MEZA TOP) Unknown Completed [facility] Zoster Vaccine Recombinant Unknown Completed [facility] Zoster Vaccine Recombinant Unknown Completed [facility] SARS-COV-2 COVID-19 PFIZER VACCINE Unknown Completed [facility] SARS-COV-2 COVID-19 PFIZER VACCINE Unknown Completed [facility] TDAP Unknown Completed [facility] Influenza Virus Vaccine,quad Im,preserve Free 65+ (FLUAD) Unknown Completed [facility] SARS-COV-2 COVID-19 PFIZER VACCINE Unknown Completed [facility] Influenza Virus Vaccine,quad Im,preserve Free 65+ (FLUAD) Unknown Completed [facility] SARS-COV-2 COVID-19 CLARISSA-SUCROSE VACCINE 12 YRS+, BIVALENT 0.3ML, IM, (PFIZER MEZA TOP) Unknown Completed [facility] Pneumococcal 20 Conjugate, PCV20 (Prevnar 20) Unknown Completed [facility] Influenza Virus Vaccine,quad Im,preserve Free 65+ (FLUAD) Unknown Completed [facility] SARS-COV-2 COVID 19 CLARISSA SUCROSE VACCINE 12+, , 0.3 ML (30 MCG), IM PFIZER (MEZA TOP) Unknown Completed [facility] Zoster Vaccine Recombinant Unknown Completed [facility] Zoster Vaccine Recombinant Unknown Completed [facility] SARS-COV-2 COVID-19 PFIZER VACCINE Unknown Completed [facility] SARS-COV-2 COVID-19 PFIZER VACCINE Unknown Completed [facility] TDAP Unknown Completed [facility] Influenza Virus Vaccine,quad Im,preserve Free 65+ (FLUAD) Unknown Completed [facility] SARS-COV-2 COVID-19 PFIZER VACCINE Unknown Completed [facility] Influenza Virus Vaccine,quad Im,preserve Free 65+ (FLUAD) Unknown Completed [facility] SARS-COV-2 COVID-19 CLARISSA-SUCROSE VACCINE 12 YRS+, BIVALENT 0.3ML, IM, (PFIZER MEZA TOP) Unknown Completed [facility] Pneumococcal 20 Conjugate, PCV20 (Prevnar 20) Unknown Completed [facility] Influenza Virus Vaccine,quad Im,preserve Free 65+ (FLUAD) Unknown Completed [facility] SARS-COV-2 COVID 19 CLARISSA SUCROSE VACCINE 12+, [id number], 0.3 ML (30 MCG), IM PFIZER (MEZA TOP) Unknown Completed [facility] Zoster Vaccine Recombinant Unknown Completed [facility] Zoster Vaccine Recombinant Unknown Completed [facility] SARS-COV-2 COVID-19 PFIZER VACCINE Unknown Completed [facility] SARS-COV-2 COVID-19 PFIZER VACCINE Unknown Completed [facility] TDAP Unknown Completed [facility] Influenza Virus Vaccine,quad Im,preserve Free 65+ (FLUAD) Unknown Completed [facility] SARS-COV-2 COVID-19 PFIZER VACCINE Unknown Completed [facility] Influenza Virus Vaccine,quad Im,preserve Free 65+ (FLUAD) Unknown Completed [facility] SARS-COV-2 COVID-19 CLARISSA-SUCROSE VACCINE 12 YRS+, BIVALENT 0.3ML, IM, (PFIZER MEZA TOP) Unknown Completed [facility] Pneumococcal 20 Conjugate, PCV20 (Prevnar 20) Unknown Completed [facility] Influenza Virus Vaccine,quad Im,preserve Free 65+ (FLUAD) Unknown Completed [facility] SARS-COV-2 COVID 19 CLARISSA SUCROSE VACCINE 12+, , 0.3 ML (30 MCG), IM PFIZER (MEZA TOP) Unknown Completed [facility] Zoster Vaccine Recombinant Unknown Completed [facility] Zoster Vaccine Recombinant Unknown Completed [facility] SARS-COV-2 COVID-19 PFIZER VACCINE Unknown Completed [facility] SARS-COV-2 COVID-19 PFIZER VACCINE Unknown Completed [facility] TDAP Unknown Completed [facility] Influenza Virus Vaccine,quad Im,preserve Free 65+ (FLUAD) Unknown Completed [facility] SARS-COV-2 COVID-19 PFIZER VACCINE Unknown Completed [facility] Influenza Virus Vaccine,quad Im,preserve Free 65+ (FLUAD) Unknown Completed [facility] SARS-COV-2 COVID-19 CLARISSA-SUCROSE VACCINE 12 YRS+, BIVALENT 0.3ML, IM, (PFIZER MEZA TOP) Unknown Completed [facility] Pneumococcal 20 Conjugate, PCV20 (Prevnar 20) Unknown Completed [facility] Influenza Virus Vaccine,quad Im,preserve Free 65+ (FLUAD) Unknown Completed [facility] SARS-COV-2 COVID 19 CLARISSA SUCROSE VACCINE 12+, , 0.3 ML (30 MCG), IM PFIZER (MEZA TOP) Unknown Completed [facility] Zoster Vaccine Recombinant Unknown Completed [facility] Zoster Vaccine Recombinant Unknown Completed [facility] SARS-COV-2 COVID-19 PFIZER VACCINE Unknown Completed [facility] SARS-COV-2 COVID-19 PFIZER VACCINE Unknown Completed [facility] TDAP Unknown Completed [facility] Influenza Virus Vaccine,quad Im,preserve Free 65+ (FLUAD) Unknown Completed [facility] SARS-COV-2 COVID-19 PFIZER VACCINE Unknown Completed [facility] Influenza Virus Vaccine,quad Im,preserve Free 65+ (FLUAD) Unknown Completed [facility] SARS-COV-2 COVID-19 CLARISSA-SUCROSE VACCINE 12 YRS+, BIVALENT 0.3ML, IM, (PFIZER MEZA TOP) Unknown Completed [facility] Pneumococcal 20 Conjugate, PCV20 (Prevnar 20) Unknown Completed [facility] Influenza Virus Vaccine,quad Im,preserve Free 65+ (FLUAD) Unknown Completed [facility] SARS-COV-2 COVID 19 CLARISSA SUCROSE VACCINE 12+, , 0.3 ML (30 MCG), IM PFIZER (MEZA TOP) Unknown Completed [facility] Zoster Vaccine Recombinant Unknown Completed [facility] Zoster Vaccine Recombinant Unknown Completed [facility] SARS-COV-2 COVID-19 PFIZER VACCINE Unknown Completed [facility] SARS-COV-2 COVID-19 PFIZER VACCINE Unknown Completed [facility] TDAP Unknown Completed [facility] Influenza Virus Vaccine,quad Im,preserve Free 65+ (FLUAD) Unknown Completed [facility] SARS-COV-2 COVID-19 PFIZER VACCINE Unknown Completed [facility] Influenza Virus Vaccine,quad Im,preserve Free 65+ (FLUAD) Unknown Completed [facility] SARS-COV-2 COVID-19 CLARISSA-SUCROSE VACCINE 12 YRS+, BIVALENT 0.3ML, IM, (PFIZER MEZA TOP) Unknown Completed [facility] Pneumococcal 20 Conjugate, PCV20 (Prevnar 20) Unknown Completed [facility] Influenza Virus Vaccine,quad Im,preserve Free 65+ (FLUAD) Unknown Completed [facility] SARS-COV-2 COVID 19 CLARISSA SUCROSE VACCINE 12+, [id number], 0.3 ML (30 MCG), IM PFIZER (MEZA TOP) Unknown Completed [facility] Zoster Vaccine Recombinant Unknown Completed [facility] Zoster Vaccine Recombinant Unknown Completed [facility] SARS-COV-2 COVID-19 PFIZER VACCINE Unknown Completed [facility] SARS-COV-2 COVID-19 PFIZER VACCINE Unknown Completed [facility] TDAP Unknown Completed [facility] Influenza Virus Vaccine,quad Im,preserve Free 65+ (FLUAD) Unknown Completed [facility] SARS-COV-2 COVID-19 PFIZER VACCINE Unknown Completed [facility] Influenza Virus Vaccine,quad Im,preserve Free 65+ (FLUAD) Unknown Completed [facility] SARS-COV-2 COVID-19 CLARISSA-SUCROSE VACCINE 12 YRS+, BIVALENT 0.3ML, IM, (PFIZER MEZA TOP) Unknown Completed [facility] Pneumococcal 20 Conjugate, PCV20 (Prevnar 20) Unknown Completed [facility] Influenza Virus Vaccine,quad Im,preserve Free 65+ (FLUAD) Unknown Completed [facility] SARS-COV-2 COVID 19 CLARISSA SUCROSE VACCINE 12+, , 0.3 ML (30 MCG), IM PFIZER (MEZA TOP) Unknown Completed [facility] Zoster Vaccine Recombinant Unknown Completed [facility] Zoster Vaccine Recombinant Unknown Completed [facility] SARS-COV-2 COVID-19 PFIZER VACCINE Unknown Completed [facility] SARS-COV-2 COVID-19 PFIZER VACCINE Unknown Completed [facility] TDAP Unknown Completed [facility] Influenza Virus Vaccine,quad Im,preserve Free 65+ (FLUAD) Unknown Completed [facility] SARS-COV-2 COVID-19 PFIZER VACCINE Unknown Completed [facility] Influenza Virus Vaccine,quad Im,preserve Free 65+ (FLUAD) Unknown Completed [facility] SARS-COV-2 COVID-19 CLARISSA-SUCROSE VACCINE 12 YRS+, BIVALENT 0.3ML, IM, (PFIZER MEZA TOP) Unknown Completed [facility] Pneumococcal 20 Conjugate, PCV20 (Prevnar 20) Unknown Completed [facility] Influenza Virus Vaccine,quad Im,preserve Free 65+ (FLUAD) Unknown Completed [facility] SARS-COV-2 COVID 19 CLARISSA SUCROSE VACCINE 12+, [id number], 0.3 ML (30 MCG), IM PFIZER (MEZA TOP) Unknown Completed [facility] Zoster Vaccine Recombinant Unknown Completed [facility] Zoster Vaccine Recombinant Unknown Completed [facility] SARS-COV-2 COVID-19 PFIZER VACCINE Unknown Completed [facility] SARS-COV-2 COVID-19 PFIZER VACCINE Unknown Completed [facility] TDAP Unknown Completed [facility] Influenza Virus Vaccine,quad Im,preserve Free 65+ (FLUAD) Unknown Completed [facility] SARS-COV-2 COVID-19 PFIZER VACCINE Unknown Completed [facility] Influenza Virus Vaccine,quad Im,preserve Free 65+ (FLUAD) Unknown Completed [facility] SARS-COV-2 COVID-19 CLARISSA-SUCROSE VACCINE 12 YRS+, BIVALENT 0.3ML, IM, (PFIZER MEZA TOP) Unknown Completed [facility] Pneumococcal 20 Conjugate, PCV20 (Prevnar 20) Unknown Completed [facility] Influenza Virus Vaccine,quad Im,preserve Free 65+ (FLUAD) Unknown Completed [facility] SARS-COV-2 COVID 19 CLARISSA SUCROSE VACCINE 12+, [id number], 0.3 ML (30 MCG), IM PFIZER (MEZA TOP) Unknown Completed [facility] Zoster Vaccine Recombinant Unknown Completed [facility] Zoster Vaccine Recombinant Unknown Completed [facility] SARS-COV-2 COVID-19 PFIZER VACCINE Unknown Completed [facility] SARS-COV-2 COVID-19 PFIZER VACCINE Unknown Completed [facility] TDAP Unknown Completed [facility] Influenza Virus Vaccine,quad Im,preserve Free 65+ (FLUAD) Unknown Completed [facility] SARS-COV-2 COVID-19 PFIZER VACCINE Unknown Completed [facility] Influenza Virus Vaccine,quad Im,preserve Free 65+ (FLUAD) Unknown Completed [facility] SARS-COV-2 COVID-19 CLARISSA-SUCROSE VACCINE 12 YRS+, BIVALENT 0.3ML, IM, (PFIZER MEZA TOP) Unknown Completed [facility] Pneumococcal 20 Conjugate, PCV20 (Prevnar 20) Unknown Completed [facility] Influenza Virus Vaccine,quad Im,preserve Free 65+ (FLUAD) Unknown Completed [facility] SARS-COV-2 COVID 19 CLARISSA SUCROSE VACCINE 12+, [id number], 0.3 ML (30 MCG), IM PFIZER (MEZA TOP) Unknown Completed [facility] Zoster Vaccine Recombinant Unknown Completed [facility] Zoster Vaccine Recombinant Unknown Completed [facility] SARS-COV-2 COVID-19 PFIZER VACCINE Unknown Completed [facility] SARS-COV-2 COVID-19 PFIZER VACCINE Unknown Completed [facility] TDAP Unknown Completed [facility] Influenza Virus Vaccine,quad Im,preserve Free 65+ (FLUAD) Unknown Completed [facility] SARS-COV-2 COVID-19 PFIZER VACCINE Unknown Completed [facility] Influenza Virus Vaccine,quad Im,preserve Free 65+ (FLUAD) Unknown Completed [facility] SARS-COV-2 COVID-19 CLARISSA-SUCROSE VACCINE 12 YRS+, BIVALENT 0.3ML, IM, (PFIZER MEZA TOP) Unknown Completed [facility] Pneumococcal 20 Conjugate, PCV20 (Prevnar 20) Unknown Completed [facility] Influenza Virus Vaccine,quad Im,preserve Free 65+ (FLUAD) Unknown Completed [facility] SARS-COV-2 COVID 19 CLRAISSA SUCROSE VACCINE 12+, , 0.3 ML (30 MCG), IM PFIZER (MEZA TOP) Unknown Completed [facility] Zoster Vaccine Recombinant Unknown Completed [facility] Zoster Vaccine Recombinant Unknown Completed [facility] SARS-COV-2 COVID-19 PFIZER VACCINE Unknown Completed [facility] SARS-COV-2 COVID-19 PFIZER VACCINE Unknown Completed [facility] TDAP Unknown Completed [facility] Influenza Virus Vaccine,quad Im,preserve Free 65+ (FLUAD) Unknown Completed [facility] SARS-COV-2 COVID-19 PFIZER VACCINE Unknown Completed [facility] Influenza Virus Vaccine,quad Im,preserve Free 65+ (FLUAD) Unknown Completed [facility] SARS-COV-2 COVID-19 CLARISSA-SUCROSE VACCINE 12 YRS+, BIVALENT 0.3ML, IM, (PFIZER MEZA TOP) Unknown Completed [facility] Pneumococcal 20 Conjugate, PCV20 (Prevnar 20) Unknown Completed [facility] Influenza Virus Vaccine,quad Im,preserve Free 65+ (FLUAD) Unknown Completed [facility] SARS-COV-2 COVID 19 CLARISSA SUCROSE VACCINE 12+, [id number], 0.3 ML (30 MCG), IM PFIZER (MEZA TOP) Unknown Completed [facility] Zoster Vaccine Recombinant Unknown Completed [facility] Zoster Vaccine Recombinant Unknown Completed [facility] SARS-COV-2 COVID-19 PFIZER VACCINE Unknown Completed [facility] SARS-COV-2 COVID-19 PFIZER VACCINE Unknown Completed [facility] TDAP Unknown Completed [facility] Influenza Virus Vaccine,quad Im,preserve Free 65+ (FLUAD) Unknown Completed [facility] SARS-COV-2 COVID-19 PFIZER VACCINE Unknown Completed [facility] Influenza Virus Vaccine,quad Im,preserve Free 65+ (FLUAD) Unknown Completed [facility] SARS-COV-2 COVID-19 CLARISSA-SUCROSE VACCINE 12 YRS+, BIVALENT 0.3ML, IM, (PFIZER MEZA TOP) Unknown Completed [facility] Pneumococcal 20 Conjugate, PCV20 (Prevnar 20) Unknown Completed [facility] Influenza Virus Vaccine,quad Im,preserve Free 65+ (FLUAD) Unknown Completed [facility] SARS-COV-2 COVID 19 CLARISSA SUCROSE VACCINE 12, , 0.3 ML (30 MCG), IM PFIZER (MEZA TOP) Unknown Completed [facility] Zoster Vaccine Recombinant Unknown Completed [facility] Zoster Vaccine Recombinant Unknown Completed [facility] SARS-COV-2 COVID-19 PFIZER VACCINE Unknown Completed [facility] SARS-COV-2 COVID-19 PFIZER VACCINE Unknown Completed [facility] TDAP Unknown Completed [facility] Influenza Virus Vaccine,quad Im,preserve Free 65+ (FLUAD) Unknown Completed [facility] SARS-COV-2 COVID-19 PFIZER VACCINE Unknown Completed [facility] Influenza Virus Vaccine,quad Im,preserve Free 65+ (FLUAD) Unknown Completed [facility] SARS-COV-2 COVID-19 CLARISSA-SUCROSE VACCINE 12 YRS+, BIVALENT 0.3ML, IM, (PFIZER MEZA TOP) Unknown Completed [facility] Pneumococcal 20 Conjugate, PCV20 (Prevnar 20) Unknown Completed [facility] Influenza Virus Vaccine,quad Im,preserve Free 65+ (FLUAD) Unknown Completed [facility] SARS-COV-2 COVID 19 CLARISSA SUCROSE VACCINE 12, , 0.3 ML (30 MCG), IM PFIZER (MEZA TOP) Unknown Completed [facility] Zoster Vaccine Recombinant Unknown Completed [facility] Zoster Vaccine Recombinant Unknown Completed [facility] Vital Signs Vital Name Observation Time Observation Value Comments S ource Body height 2023-12-08 18:10:00 149.9 cm [facility] Body weight 2023-12-08 18:10:00 111.585 kg [facility] BMI 2023-12-08 18:10:00 49.69 kg[facility] Systolic blood pressure 2023-11-25 14:55:00 130 mm[Hg] [facility] Diastolic blood pressure 2023-11-25 14:55:00 72 mm[Hg] [facility] Heart rate 2023-11-25 14:55:00 70 /[facility] 2023-11-25 14:55:00 16 /min [facility] Body height 2023-11-25 14:55:00 149[facility] Body weight 2023-11-25 14:55:00 111.721 [facility] 2023-11-25 14:55:00 49.75 kg/m2 [facility] O[facility] saturation in Arterial blood by Pulse oximetry 2023-11-25 14:55:00 94 /min [facility] Systolic blood pressure 2023-11-22 14:15:00 109 mm[Hg] [facility] Diastolic blood pressure 2023-11-22 14:15:00 68 mm[Hg] [facility] Heart rate 2023-11-22 14:15:00 64 /min [facility] 2023-11-22 14:15:00 149.9 cm Univ ersity of [facility] Body weight 2023-11-22 14:15:00 111.993 kg [facility] BMI 2023-11-22 14:15:00 49.87 kg/m2 [facility] Oxygen saturation in Arterial blood by Pulse oximetry 2023-11-22 14:15:00 95 /min [facility] Body height 2023-11-01 20:11:00 149.9 cm Univ ersity of [facility] Body weight 2023-11-01 20:11:00 115.894 kg Univ ersity of [facility] BMI 2023-11-01 20:11:00 51.60 kg/m2 Univ [facility] of [facility] Systolic blood pressure 2023-10-29 15:54:00 149 mm[Hg] [facility] Diastolic blood pressure 2023-10-29 15:54:00 84 mm[Hg] [facility] Heart rate 2023-10-29 15:53:00 67 /min Unive [facility] Body height 2023-10-29 15:53:00 149.9 cm [facility] Body weight 2023-10-29 15:53:00 115.803 kg [facility] BMI 2023-10-29 15:53:00 51.56 kg/m2 [facility] Oxygen saturation in Arterial blood by Pulse oximetry 2023-10-29 15:53:00 95 /min [facility] Systolic blood pressure 2023-10-19 20:43:00 125 mm[Hg] [facility] Diastolic blood pressure 2023-10-19 20:43:00 56 mm[Hg] [facility] Heart rate 2023-10-19 20:43:00 62 /min Unive [facility] Body temperature 2023-10-19 20:43:00 36.39 Kirsten [facility] Respiratory rate 2023-10-19 20:43:00 15 /min [facility] Oxygen saturation in Arterial blood by Pulse oximetry 2023-10-19 20:43:00 92 /min [facility] Body weight 2023-10-19 08:20:00 120.475 kg [facility] BMI 2023-10-19 08:20:00 53.64 kg/m2 [facility] Body height 2023-10-18 20:54:00 149.9 cm [facility] Systolic blood pressure 2023-10-18 15:15:00 129 mm[Hg] [facility] Diastolic blood pressure 2023-10-18 15:15:00 75 mm[Hg] [facility] Heart rate 2023-10-18 15:15:00 67 /min Unive [facility] Respiratory rate 2023-10-18 15:15:00 21 /min [facility] Oxygen saturation in Arterial blood by Pulse oximetry 2023-10-18 15:15:00 95 /min [facility] Body temperature 2023-10-18 15:05:00 36.5 Kirsten [facility] Body height 2023-10-06 21:00:00 149.9 cm [facility] Body weight 2023-10-06 21:00:00 116.574 kg [facility] BMI 2023-10-06 21:00:00 53.64 kg/m2 [facility] Body height 2023-09-23 15:32:00 149.9 cm [facility] Body weight 2023-09-23 15:32:00 116.847 kg [facility] BMI 2023-09-23 15:32:00 52.03 kg/m2 [facility] Systolic blood pressure 2023-09-21 13:45:00 103 mm[Hg] [facility] Diastolic blood pressure 2023-09-21 13:45:00 66 mm[Hg] [facility] Heart rate 2023-09-21 13:45:00 89 /min Unive [facility] Body height 2023-09-21 13:45:00 149.9 cm Univ [facility] Body weight 2023-09-21 13:45:00 116.665 kg [facility] BMI 2023-09-21 13:45:00 51.95 kg/m2 [facility] Oxygen saturation in Arterial blood by Pulse oximetry 2023-09-21 13:45:00 97 /min [facility] Systolic blood pressure 2023-07-29 14:42:00 126 mm[Hg] [facility] Diastolic blood pressure 2023-07-29 14:42:00 74 mm[Hg] [facility] Heart rate 2023-07-29 14:42:00 82 /min [facility] Body height 2023-07-29 14:42:00 144.8 cm [facility] Body weight 2023-07-29 14:42:00 117.482 kg Univ [facility] BMI 2023-07-29 14:42:00 56.05 kg/m2 [facility] Oxygen saturation in Arterial blood by Pulse oximetry 2023-07-29 14:42:00 93 /min [facility] Systolic blood pressure 2023-07-07 16:31:00 128 mm[Hg] [facility] Diastolic blood pressure 2023-07-07 16:31:00 67 mm[Hg] [facility] Heart rate 2023-07-07 16:31:00 70 /min Unive [facility] Body temperature 2023-07-07 16:31:00 36.56 Kirsten [facility] Body height 2023-07-07 16:31:00 149.9 cm [facility] Body weight 2023-07-07 16:31:00 117.527 kg [facility] BMI 2023-07-07 16:31:00 52.33 kg/m2 [facility] Oxygen saturation in Arterial blood by Pulse oximetry 2023-07-07 16:31:00 95 /min [facility] Systolic blood pressure 2023-05-26 17:05:00 153 mm[Hg] [facility] Diastolic blood pressure 2023-05-26 17:05:00 86 mm[Hg] [facility] Heart rate 2023-05-26 17:05:00 70 /min Unive [facility] Body height 2023-05-26 17:05:00 149.9 cm [facility] Body weight 2023-05-26 17:05:00 111.721 kg [facility] BMI 2023-05-26 17:05:00 49.75 kg/m2 [facility] Oxygen saturation in Arterial blood by Pulse oximetry 2023-05-26 17:05:00 99 /min [facility] Systolic blood pressure 2023-03-31 16:41:00 162 mm[Hg] [facility] Diastolic blood pressure 2023-03-31 16:41:00 99 mm[Hg] [facility] Heart rate 2023-03-31 16:41:00 56 /min Unive [facility] Respiratory rate 2023-03-31 16:36:00 18 /min [facility] Body height 2023-03-31 16:36:00 149.9 cm [facility] Body weight 2023-03-31 16:36:00 118.026 kg [facility] BMI 2023-03-31 16:36:00 52.55 kg/m2 [facility] Systolic blood pressure 2023-03-12 16:52:00 133 mm[Hg] [place] [facility] Diastolic blood pressure 2023-03-12 16:52:00 80 mm[Hg] [facility] Heart rate 2023-03-12 16:52:00 68 /min [facility] Respiratory rate 2023-03-12 16:52:00 18 /min [facility] Body height 2023-03-12 16:52:00 144.8 cm [facility] Body weight 2023-03-12 16:52:00 117.028 kg [facility] 2023-03-12 16:52:00 55.83 kg/m2 [facility] Oxygen saturation in Arterial blood by Pulse oximetry 2023-03-12 16:52:00 95 /min [facility] Systolic blood pressure 2023-01-27 14:47:00 131 mm[Hg] [facility] Diastolic blood pressure 2023-01-27 14:47:00 70 mm[Hg] [facility] Heart rate 2023-01-27 14:47:00 64 /min [facility] Body height 2023-01-27 14:47:00 149.9 cm [facility] Body weight 2023-01-27 14:47:00 116.121 kg [facility] BMI 2023-01-27 14:47:00 51.71 kg/m2 [facility] Oxygen saturation in Arterial blood by Pulse oximetry 2023-01-27 14:47:00 91 /min [facility] Systolic blood pressure 2023-01-08 14:35:00 115 mm[Hg] [facility] Diastolic blood pressure 2023-01-08 14:35:00 61 mm[Hg] [facility] Heart rate 2023-01-08 14:35:00 69 /min Unive [facility] Body temperature 2023-01-08 14:35:00 36.83 Kirsten [facility] Body height 2023-01-08 14:35:00 149.9 cm [facility] Body weight 2023-01-08 14:35:00 116.847 kg [facility] BMI 2023-01-08 14:35:00 52.03 kg/m2 [facility] Oxygen saturation in Arterial blood by Pulse oximetry 2023-01-08 14:35:00 95 /min [facility] Systolic blood pressure 2022-12-25 20:38:00 125 mm[Hg] [facility] Diastolic blood pressure 2022-12-25 20:38:00 74 mm[Hg] [facility] Heart rate 2022-12-25 20:38:00 82 /min Unive [facility] Body temperature 2022-12-25 20:38:00 36.72 Kirsten [facility] Body height 2022-12-25 20:38:00 149.9 cm [facility] Body weight 2022-12-25 20:38:00 120.475 kg [facility] BMI 2022-12-25 20:38:00 53.64 kg/m2 [facility] Oxygen saturation in Arterial blood by Pulse oximetry 2022-12-25 20:38:00 93 /min [facility] Systolic blood pressure 2022-12-03 15:54:00 137 mm[Hg] [facility] Diastolic blood pressure 2022-12-03 15:54:00 80 mm[Hg] [facility] Heart rate 2022-12-03 15:54:00 104 /min Unive [facility] Body temperature 2022-12-03 15:54:00 36.72 Kirsten [facility] Body height 2022-12-03 15:54:00 149.9 cm [facility] Body weight 2022-12-03 15:54:00 121.882 kg [facility] BMI 2022-12-03 15:54:00 54.27 kg/m2 [facility] Oxygen saturation in Arterial blood by Pulse oximetry 2022-12-03 15:54:00 94 /min [facility] Systolic blood pressure 2022-11-25 15:06:00 155 mm[Hg] [facility] Diastolic blood pressure 2022-11-25 15:06:00 87 mm[Hg] [facility] Heart rate 2022-11-25 15:06:00 81 /min Unive [facility] Body height 2022-11-25 15:06:00 149.9 cm [facility] Body weight 2022-11-25 15:06:00 117.436 kg [facility] BMI 2022-11-25 15:06:00 52.29 kg/m2 [facility] Oxygen saturation in Arterial blood by Pulse oximetry 2022-11-25 15:06:00 97 /min [facility] Systolic blood pressure 2022-09-08 14:35:00 134 mm[Hg] [facility] Diastolic blood pressure 2022-09-08 14:35:00 83 mm[Hg] [facility] Heart rate 2022-09-08 14:35:00 72 /min Unive [facility] Body height 2022-09-08 14:35:00 152.4 cm [facility] Body weight 2022-09-08 14:35:00 120.929 kg [facility] BMI 2022-09-08 14:35:00 52.07 kg/m2 [facility] Oxygen saturation in Arterial blood by Pulse oximetry 2022-09-08 14:35:00 97 /min [facility] Systolic blood pressure 2022-07-03 16:24:00 118 mm[Hg] [facility] Diastolic blood pressure 2022-07-03 16:24:00 71 mm[Hg] [facility] Heart rate 2022-07-03 16:23:00 87 /min Unive [facility] Body temperature 2022-07-03 16:23:00 37.06 Kirsten [facility] Body height 2022-07-03 16:23:00 152.4 cm [facility] Body weight 2022-07-03 16:23:00 119.75 kg [facility] BMI 2022-07-03 16:23:00 51.56 kg/m2 [facility] Systolic blood pressure 2022-06-08 16:27:00 143 mm[Hg] [facility] Diastolic blood pressure 2022-06-08 16:27:00 73 mm[Hg] [facility] Heart rate 2022-06-08 16:26:00 73 /min Unive [facility] Body height 2022-06-08 16:26:00 152.4 cm [facility] Body weight 2022-06-08 16:26:00 118.842 kg [facility] BMI 2022-06-08 16:26:00 51.17 kg/m2 [facility] Oxygen saturation in Arterial blood by Pulse oximetry 2022-06-08 16:26:00 96 /min [facility] Systolic blood pressure 2022-05-27 15:31:00 147 mm[Hg] [facility] Diastolic blood pressure 2022-05-27 15:31:00 86 mm[Hg] [facility] Heart rate 2022-05-27 15:31:00 75 /min Unive [facility] Body height 2022-05-27 15:31:00 152.4 cm [facility] Body weight 2022-05-27 15:31:00 114.443 kg [facility] BMI 2022-05-27 15:31:00 49.27 kg/m2 [facility] Oxygen saturation in Arterial blood by Pulse oximetry 2022-05-27 15:31:00 95 /min [facility] Body temperature 2022-05-27 15:28:00 36.28 Kirsten [facility] Systolic blood pressure 2022-04-06 15:02:00 135 mm[Hg] [facility] Diastolic blood pressure 2022-04-06 15:02:00 79 mm[Hg] [facility] Heart rate 2022-04-06 14:54:00 80 /min Unive [facility] Body temperature 2022-04-06 14:54:00 36.67 Kirsten [facility] Body height 2022-04-06 14:54:00 149.9 cm [facility] Body weight 2022-04-06 14:54:00 119.296 kg [facility] BMI 2022-04-06 14:54:00 53.12 kg/m2 [facility] Oxygen saturation in Arterial blood by Pulse oximetry 2022-04-06 14:54:00 97 /min [facility] Systolic blood pressure 2022-01-26 15:50:00 139 mm[Hg] [facility] Diastolic blood pressure 2022-01-26 15:50:00 80 mm[Hg] [facility] Heart rate 2022-01-26 15:50:00 70 /min Unive [facility] Body temperature 2022-01-26 15:50:00 36.56 Kirsten [facility] Body height 2022-01-26 15:50:00 144.8 cm [facility] Body weight 2022-01-26 15:50:00 117.935 kg [facility] BMI 2022-01-26 15:50:00 56.26 kg/m2 [facility] Oxygen saturation in Arterial blood by Pulse oximetry 2022-01-26 15:50:00 94 /min [facility] Systolic blood pressure 2022-01-19 13:58:00 130 mm[Hg] [facility] Diastolic blood pressure 2022-01-19 13:58:00 70 mm[Hg] [facility] Heart rate 2022-01-19 13:58:00 80 /min Unive [facility] Body temperature 2022-01-19 13:58:00 36.56 Kirsten [facility] Respiratory rate 2022-01-19 13:58:00 18 /min [facility] Body height 2022-01-19 13:58:00 144.8 cm [facility] Body weight 2022-01-19 13:58:00 117.935 kg [facility] BMI 2022-01-19 13:58:00 56.26 kg/m2 [facility] Procedures Procedure Date / Time Performed Performing Clinician Source POCT GLUCOSE (AUTOMATED) 2023-10-19 21:35:00 Denilson Anderson [facility] POCT GLUCOSE (AUTOMATED) 2023-10-19 21:35:00 Denilson Anderson [facility] POCT GLUCOSE (AUTOMATED) 2023-10-19 16:59:00 Denilson Anderson [facility] POCT GLUCOSE (AUTOMATED) 2023-10-19 16:59:00 Denilson Anderson [facility] POCT GLUCOSE (AUTOMATED) 2023-10-19 12:47:00 Denilson Anderson [facility] POCT GLUCOSE (AUTOMATED) 2023-10-19 12:47:00 Denilson Anderson [facility] BASIC METABOLIC PANEL (NA, K, CL, CO2, GLUCOSE, BUN, CREATININE, CA) 2023-10-19 09:59:00 Nidia Haro [facility] CBC WITH DIFF 2023-10-19 09:59:00 [facility]IC METABOLIC PANEL (NA, K, CL, CO2, GLUCOSE, BUN, CREATININE, CA) 2023-10-19 09:59:00 Nidia Haro [facility] CBC WITH DIFF 2023-10-19 09:59:00 N[facility] PO[facility] GLUCOSE (AUTOMATED) 2023-10-19 01:07:00 Denilson Anderson [facility] POCT GLUCOSE (AUTOMATED) 2023-10-19 01:07:00 Denilson Anderson [facility] MRSA / MSSA SCREEN BY PCR, JULIAN 2023-10-18 22:54:00 Krystina Tejeda [facility] MRSA / MSSA [facility] 2023-10-18 22:54:00 Krystina Tejeda [facility] [id number] - [place] ARTHRP KNE CONDYLE&PLATU MEDIAL&LAT COMPARTMENTS 2023-10-18 12:50:00 Krystina Tejeda [facility] [id number] - [place] ARTHRP KNE CONDYLE&PLATU MEDIAL&LAT COMPARTMENTS 2023-10-18 12:50:00 Krystina Tejeda [facility] HB ABO GROUPING 2023-10-18 12:34:00 Krystina Tejeda [facility] HB ABO GROUPING 2023-10-18 12:34:00 Krystina Tejeda [facility] POCT GLUCOSE (AUTOMATED) 2023-10-18 12:20:00 Krystina Tejeda [facility] POCT GLUCOSE (AUTOMATED) 2023-10-18 12:20:00 Krystina Tejeda [facility] XR CHEST 2 VW 2023-10-13 15:24:00 Krystina Tejeda Un [facility] COMP. METABOLIC PANEL (34441) 2023-09-21 14:34:00 Jing Conn [facility] SLEEP STUDY DATA REPORT 2023-08-30 16:28:43 Doct or Unassigned, [place] [facility] XR KNEE <3 VW LEFT 2023-07-29 14:52:33 Krystina Tejeda [facility] EXTERNAL PROVIDER RECORDS 2023-07-22 05:01:00 Do ctor Unassigned, [place] [facility] PATIENT FINANCIAL POLICY 2023-07-07 16:06:58 Doctor Unassigned, [place] [facility] CREATINE KINASE 2023-05-26 17:43:00 Desiree Boudreaux [facility] MAGNESIUM 2023-05-26 17:43:00 [facility] BILI UNCONJUGATED/BILI CONJUG 2023-05-26 17:43:00 Desiree Boudreaux [facility] COMP. METABOLIC PANEL ([id number]) 2023-05-26 17:43:00 Desiree Boudreaux [facility] LIPID PANEL (83342)(TOTAL CHOLESTEROL, TRIGLYCERIDES, HDL) 2023-05-26 17:43:00 Desiree Boudreaux [facility] CBC WITHOUT DIFF 2023-05-26 17:43:00 Desiree Boudreaux [facility] GLYCOSYLATED HEMOGLOBIN (A1C) 2023-05-26 17:43:00 Desiree Boudreaux [facility] N-TERMINAL PRO-BNP 2023-05-26 17:43:00 Desiree Boudreaux [facility] TRANSTHORACIC ECHO (TTE) COMPLETE 2023-05-26 15:51:43 Desiree Boudreaux [facility] BI SCREENING TOMOSYNTHESIS BILATERAL 2023-04-08 15:35:39 Suman Cinthya [facility] DEXA AXIAL (HIP AND SPINE) 2023-04-02 16:21:37 Cinthya Will [facility] FLU VACC(),65+YR,0.5 ML,IM,ADJUVANTED,QUAD(FLU AD) 2023-03-12 17:50:14 Cinthya Will [facility] SARS-COV-2 COVID 19 CLARISSA SUCROSE VACCINE 12+, , 0.3 ML (30 MCG), IM PFIZER (MEZA TOP) 2023-03-12 17:50:14 Cinthya Will [facility] DME/SUPPLY JUSTIFICATION 2022-12-20 05:01:00 Doc tor Unassigned, [place] [facility] COMP. METABOLIC PANEL ([id number]) 2022-12-03 17:15:00 Desiree Boudreaux [facility] LIPID PANEL ([id number])(TOTAL CHOLESTEROL, TRIGLYCERIDES, HDL) 2022-12-03 17:15:00 Desiree Boudreaux [facility] URINALYSIS 2022-12-03 17:15:00 Cinthya Will [facility] EXTERNAL PROVIDER RECORDS 2022-10-27 05:01:00 Do ctor Unassigned, [place] [facility] EXTERNAL PROVIDER RECORDS 2022-09-25 05:01:00 Do ctor Unassigned, [place] [facility] PNEUMOCOCCAL 20 CONJUGATE (PREVNAR 20) VACCINE 2022-09-08 14:59:48 Cinthya Will [facility] US ABDOMEN LIMITED 2022-08-28 15:08:01 Dominic Ghosh [facility] CONSENT/REFUSAL FOR DIAGNOSIS AND TREATMENT 2022-08-28 13:59:48 Doctor Unassigned, [place] [facility] ASSIGNMENT OF BENEFITS 2022-08-28 13:59:29 Docto r Unassigned, [place] [facility] EXTERNAL PROVIDER - ADC CARDIOLOGY 2022-08-11 05:01:00 Doctor Unassigned, [place] [facility] INSURANCE CORRESPONDENCE 2022-08-04 05:01:00 Doc tor Unassigned, [place] [facility] PATIENT FINANCIAL POLICY 2022-07-03 15:51:37 Doctor Unassigned, [place] [facility] POCT URINALYSIS W/O SPECIFIC GRAVITY 2022-07-03 00:00:00 Alejandra Nice [facility] COMP. METABOLIC PANEL ([id number]) 2022-05-25 15:13:00 Suman [facility] GLYCOSYLATED HEMOGLOBIN (A1C) 2022-05-25 15:13:00 Suman [facility] MEDICATION CORRESPONDENCE 2022-05-13 06:01:00 Do ctor Unassigned, [place] [facility] FLU VACC(),65+YR,0.5 ML,IM,ADJUVANTED,QUAD(FLU AD) 2022-01-26 16:14:39 Suman [facility] SARS-COV-2 COVID-19 CLARISSA-SUCROSE VACCINE 12 YRS+, BIVALENT 0.3ML, IM, (PFIZER MEZA TOP BOOSTER) 2022-01-26 16:14:39 Suman [facility] Encounters Start Date/Time End Date/Time Encounter Type Admission Type Attending Clinicians Care Facility Care Department Encounter ID Source 2021-03-05 16:30:28 Outpatient R DOMINIC KIDD [facility] [id number] [facility] 2024-12-07 09:00:00 2024-12-07 09:00:00 Outpatient R KRYSTINA TEJEDA [facility] [id number] [facility] 2024-01-03 00:00:00 2024-01-04 08:26:22 Refill Suman [facility] SAMUEL?JAMA [facility] 1.2.840.114 350.1.13.10 [id number] [facility] 2023-11-16 00:00:00 2023-12-18 18:20:27 Patient Secure Msg Doctor Unassigned, [place] Doctor Unassigned, [place] [facility] [id number] 350.1.13.10 [id number] [facility] 2023-12-13 00:00:00 2023-12-13 12:51:31 Letter (Out) [facility] 1.2.840.114 350.1.13.10 4.2.7.2.[id number] [facility] 2023-12-09 00:00:00 2023-12-10 08:34:56 Telephone Suman Cinthya [facility] SAMUEL?[facility] [id number] 350.1.13.10 [id number] [facility] 2023-12-08 13:45:00 2023-12-08 14:00:00 Rn Integrity Visit Lab, Krystina Dias Lab, Tayo Perez [facility] 1.2.840.114 350.1.13.10 4.2.7.2.[id number] [facility] 2023-12-08 13:15:00 2023-12-08 13:32:50 Outpatient R KRYSTINA TEJEDA [facility] [id number] [facility] 2023-12-08 13:15:00 2023-12-08 13:32:50 Office Visit Krystina Tejeda [facility]?JAMA [facility] 1..840.114 350.1.13.10 4.2.7.2.[id number] [facility] 2023-11-02 00:00:00 2023-12-04 18:20:19 Patient Secure Msg Doctor Unassigned, [place] [facility]?JAMA [facility] OFF[facility]ILD[facility] 1.840.114 350.1.13.10 4.2.7.2.[id number] [facility] 2023-12-03 20:00:00 2023-12-03 22:30:00 Rn Integrity Visit 1, [facility] Sleep Lab Bed Michael Sandhu [facility] 1.840.114 350.1.13.10 4.2.7.2.[id number] [facility] 2023-12-03 20:00:00 2023-12-03 20:00:00 Outpatient R MICHAEL SANDHU STRAHIL [facility] [id number] [facility] 2023-11-25 14:30:00 2023-11-25 14:30:00 Outpatient R JOCELYN LEUNG LOVETTE [facility] [id number] [facility] 2023-11-25 10:00:00 2023-11-25 10:07:28 Outpatient DESIREE BOLAND [facility] [id number] [facility] 2023-11-25 10:00:00 2023-11-25 10:07:28 Office Visit Desiree Boudreaux [facility] PROFESSIO NAL BUILDING 1..840.114 350.1.13.10 4.2.7.2.[id number] [facility] 2023-11-23 00:00:00 2023-11-24 08:29:02 Refill Desiree Boudreaux [facility] 1.840.114 350.1.13.10 4.2.7.2.[id number] [facility] 2023-11-23 00:00:00 2023-11-23 10:18:15 Telephone Suman [facility] SAMUEL?[facility] MEDICAL OFFICE BUILDING 1.84.114 350.1.13.10 4.2.7.2.[id number] [facility] 2023-11-22 10:00:00 2023-11-22 10:07:35 Rn Integrity Visit Lab, Tayo Will [facility] SAMUEL?[facility] MEDICAL OFFICE BUILDING 1.840.114 350.1.13.10 4.2.7.2.[id number] [facility] 2023-11-22 09:20:00 2023-11-22 09:57:28 [facility] [id number] [facility] 2023-11-22 09:20:00 2023-11-22 09:57:28 Office Visit Suman [facility] SAMUEL?[facility] MEDICAL OFFICE BUILDING 1.840.114 350.1.13.10 4.2.7.2.[id number] [facility] 2023-11-08 00:00:00 2023-11-16 09:00:29 Refill Krystina Tejeda [facility] SAMUEL?[facility] MEDICAL OFFICE BUILDING 1.840.114 350.1.13.10 4.2.7.2.[id number] [facility] 2023-11-02 00:00:00 2023-11-02 11:53:28 Telephone Krystina Tejeda [facility] SAMUEL?JAMA [facility] MEDICAL OFFICE BUILDING 1.2.840.114 350.1.13.10 4.2.7.2.[id number] [facility] 2023-11-01 00:00:00 2023-11-02 09:10:13 Telephone Krystina Tejeda [facility]EL[facility] 1.2.840.114 350.1.13.10 4.2.7.2.[id number] [facility] 2023-11-02 00:00:00 2023-11-02 09:07:49 Telephone Krystnia Tejeda [facility] SAMUEL?[facility] MEDICAL OFFICE BUILDING 1.2.840.114 350.1.13.10 4.2.7.2.[id number] [facility] 2023-11-01 14:17:26 2023-11-01 23:59:00 Outpatient R TEJEDAKRYSTINA TEJEDA KRYSTINA [facility] [id number] [facility] 2023-11-01 14:17:26 2023-11-01 23:59:00 Hospital Encounter Krystina Tejeda [facility] SAMUEL?[facility] MEDICAL OFFICE BUILDING 1.2840.114 350.1.13.10 4.2.7.2.[id number] [facility] 2023-11-01 14:30:00 2023-11-01 15:29:41 Office Visit [facility] MEDICAL OFFICE BUILDING 1.2.840.114 350.1.13.10 4.2.7.2.[id number] [facility] 2023-10-29 00:00:00 2023-10-29 14:42:38 Telephone Cinthya Will [facility] SAMUEL?[facility] MEDICAL OFFICE BUILDING 1.2.840.114 350.1.13.10 4.2.7.2.[id number] [facility] 2023-10-29 11:00:00 2023-10-29 11:32:05 Outpatient R JIMI, YESI [facility] [id number] [facility] 2023-10-29 11:00:00 2023-10-29 11:32:05 Office Visit Yesi Caputo Mady [facility] MEDICAL OFFICE BUILDING 1.84.114 350.1.13.10 4.2.7.2.[id number] [facility] 2023-10-22 00:00:00 2023-10-22 11:25:31 [facility] MEDICAL OFFICE BUILDING 1.840.114 350.1.13.10 4.2.7.2.[id number] [facility] 2023-10-22 08:15:00 2023-10-22 08:16:59 Outpatient R KRYSTINA TEJEDA KRYSTINA [facility] [id number] [facility] 2023-10-22 08:15:00 2023-10-22 08:16:59 Office Visit Tejeda [facility] MEDICAL OFFICE BUILDING 1.840.114 350.1.13.10 4.2.7.2.[id number] [facility] 2023-10-20 00:00:00 2023-10-21 10:50:48 Telephone Eladio [facility] MEDICAL OFFICE BUILDING 1.84.114 350.1.13.10 4.2.7.2.[id number] [facility] 2023-10-18 06:56:00 2023-10-19 18:40:00 Outpatient R MEE ANDERSON [facility] [id number] [facility] 2023-10-18 06:56:00 2023-10-19 18:40:00 Hospital Encounter Krystina Tejeda Mee [facility] 1.284.114 350.1.13.10 4.2.7.2.[id number] [facility] 2023-10-18 00:00:00 2023-10-18 10:52:35 Cinthya Azar [facility]?JAMA [facility] MED[facility] OFF[facility] BUILDING 1.84.114 350.1.13.10 4.2.7.2.[id number] [facility] 2023-10-18 07:40:00 2023-10-18 10:18:00 Surgery Krystina Tejeda [facility] 1.84.114 350.1.13.10 4.2.7.2.[id number] [facility] 2023-10-15 11:00:00 2023-10-15 11:00:00 Outpatient R KRYSTINA TEJEDA CRAIG [facility] [id number] [facility] 2023-10-15 10:15:00 2023-10-15 11:00:00 Ancillary Visit Gera Real Craig L [facility] PROFESSIO NAL BUILDING 1.84.114 350.1.13.10 4.2.7.2.[id number] [facility] 2023-10-15 10:15:00 2023-10-15 10:15:00 Outpatient R KRYSTINA TEJEDA CRAIG [facility] [id number] [facility] 2023-10-13 09:29:24 2023-10-13 23:59:00 Hospital Encounter Krystina Tejeda [facility] 1.84.114 350.1.13.10 4.2.7.2.[id number] [facility] 2023-10-13 09:21:30 2023-10-13 09:28:00 Outpatient R KRYSTINA TEJEDA CRAIG [facility] [id number] [facility] 2023-10-13 09:21:30 2023-10-13 09:28:00 Hospital Encounter Krystina Tejeda [facility] 1.2.840.114 350.1.13.10 4.2.7.2.[id number] [facility] 2023-10-13 09:00:00 2023-10-13 09:15:00 Rn Integrity Visit Pob, Adc Lab Main Lance Ramesh [facility] PROFESSIO NAL BUILDING 1..840.114 350.1.13.10 4.2.7.2.[id number] [facility] 2023-10-08 00:00:00 2023-10-08 09:55:39 Telephone Jocelyn Leung [facility] 1.840.114 350.1.13.10 4.2.7.2.[id number] [facility] 2023-10-06 13:00:00 2023-10-06 13:30:00 Nurse Visit Nurse, [facility] Krystina Tejeda [facility]?JAMA [facility] MEDICAL OFFICE BUILDING 1.2.840.114 350.1.13.10 4.2.7.2.[id number] [facility] 2023-10-06 13:00:00 2023-10-06 13:00:00 Outpatient R KRYSTINA TEJEDA CRAIG [facility] [id number] [facility] 2023-10-06 00:00:00 2023-10-06 09:35:34 Prep For Surgery Krystina Tejeda [facility] SAMUEL?JAMA [facility] MEDICAL OFFICE BUILDING 1.84.114 350.1.13.10 4.2.7.2.[id number] [facility] 2023-10-04 00:00:00 2023-10-05 14:22:54 Telephone [facility]jeda [facility]JAMA [facility] MEDICAL OFFICE BUILDING 1..114 350.1.13.10 4.2.7.2.[id number] [facility] 2023-09-23 00:00:00 2023-09-24 14:46:23 Telephone Krystina [facility]jeda [facility]JAMA [facility] MEDICAL OFFICE BUILDING 1.114 350.1.13.10 4.2.7.2.[id number] [facility] 2023-09-23 10:45:00 2023-09-23 10:54:38 Outpatient R KRYSTINA TEJEDA CRAIG [facility] [id number] [facility] 2023-09-23 10:45:00 2023-09-23 10:54:38 Office Visit Krystina Tejeda [facility]JAMA [facility] MEDICAL OFFICE BUILDING 1..114 350.1.13.10 4.2.7.2.[id number] [facility] 2023-09-22 00:00:00 2023-09-22 13:15:22 Telephone Jing Conn [facility] MEDICAL OFFICE BUILDING 1..114 350.1.13.10 4.2.7.2.[id number] [facility] 2023-09-21 09:30:00 2023-09-21 09:45:00 Rn Integrity Visit Lab, Tayo - Chris [facility] MEDICAL OFFICE BUILDING 1.840.114 350.1.13.10 4.2.7.2.[id number] [facility] 2023-09-21 09:00:00 2023-09-21 09:13:05 Outpatient R JING CONN [facility] [id number] [facility] 2023-09-21 09:00:00 2023-09-21 09:13:05 Office Visit Jing Conn [facility]?JAMA [facility] MEDICAL OFFICE BUILDING 1..840.114 350.1.13.10 4.2.7.2.[id number] [facility] 2023-09-16 00:00:00 2023-09-17 09:39:41 Telephone Krystina Tejeda [facility] MEDICAL OFFICE BUILDING 1..840.114 350.1.13.10 4.2.7.2.[id number] [facility] 2023-09-16 09:40:00 2023-09-16 09:40:00 Outpatient R VIRGINIA PEACOCK [facility] [id number] [facility] 2023-09-10 09:40:00 2023-09-10 09:40:00 Outpatient R CINTHYA WILL CHRISTINE [facility] [id number] [facility] 2023-09-01 00:00:00 2023-09-01 00:00:00 [facility] 1..840.114 350.1.13.10 4.2.7.2.[id number] [facility] 2023-08-27 09:04:36 2023-08-27 23:59:00 Outpatient R KRYSTINA TEJEDA CRAIG [facility] [id number] [facility] 2023-08-27 09:04:36 2023-08-27 23:59:00 Hospital Encounter Krystina Tejeda [facility] 1.2.840.114 350.1.13.10 4.2.7.2.[id number] [facility] 2023-08-27 20:00:00 2023-08-27 22:30:00 Rn Integrity Visit 1, [facility] Sleep Lab Bed Michael Sandhu [facility] 1.2.840.114 350.1.13.10 4.2.7.2.[id number] [facility] 2023-08-16 00:00:00 2023-08-16 00:00:00 Telephone Krystina Tejeda [facility] SAMUEL?JAMA [facility] MEDICAL OFFICE BUILDING 1.2.840.114 350.1.13.10 4.2.7.2.[id number] [facility] 2023-07-29 09:45:24 2023-07-29 23:59:00 Hospital Encounter Krystina Tejeda [facility] SAM[facility]EL?[facility] MEDICAL OFFICE BUILDING 1.2.840.114 350.1.13.10 4.2.7.2.[id number] [facility] 2023-07-29 10:30:00 2023-07-29 10:30:00 Office Visit Krystina Tejeda [facility] SAMUEL?[facility] MEDICAL OFFICE BUILDING 1.2.840.114 350.1.13.10 4.2.7.2.[id number] [facility] 2023-07-29 10:30:00 2023-07-29 10:12:50 Outpatient R TEJEDA KRYSTINA TEJEDAKRYSTINA [facility] [id number] [facility] 2023-07-29 00:00:00 2023-07-29 00:00:00 Desiree Hadley [facility] 1.2840.114 350.1.13.10 4.2.7.2.[id number] [facility] 2023-07-29 00:00:00 2023-07-29 00:00:00 Telephone Krystina Tejeda [facility] MEDICAL OFFICE BUILDING 1.2840.114 350.1.13.10 4.2.7.2.[id number] [facility] 2023-07-22 00:00:00 2023-07-22 00:00:00 Orders Only Doctor Unassigned, [place] [facility] 1.2840.114 350.1.13.10 4.2.7.2.[id number] [facility] 2023-07-19 00:00:00 2023-07-19 00:00:00 Telephone [facility] MEDICAL OFFICE BUILDING 1.2840.114 350.1.13.10 4.2.7.2.[id number] [facility] 2023-07-19 00:00:00 2023-07-19 00:00:00 Telephone [place] [facility]ac[facility] MEDICAL OFFICE BUILDING 1.2840.114 350.1.13.10 4.2.7.2.[id number] [facility] 2023-07-08 00:00:00 2023-07-08 00:00:00 Telephone [place] [facility]acock [facility] MEDICAL OFFICE BUILDING 1.2840.114 350.1.13.10 4.2.7.2.[id number] [facility] 2023-07-07 11:00:00 2023-07-07 11:24:16 Outpatient R VIRGINIA PEACOCK [facility] [id number] [facility] 2023-07-07 11:00:00 2023-07-07 11:24:16 Office Visit Virginia Peacokc Tomy [facility] MED[facility] BUILD[facility] 1.2.840.114 350.1.13.10 4.2.7.2.[id number] [facility] 2023-07-07 00:00:00 2023-07-07 00:00:00 Orders Only Doctor Unassigned, [place] [facility] 1.2.840.114 350.1.13.10 4.2.7.2.[id number] [facility] 2023-05-28 00:00:00 2023-05-28 00:00:00 Telephone Desiree Boudreaux [facility] 1.2.840.114 350.1.13.10 4.2.7.2.[id number] [facility] 2023-05-26 08:34:24 2023-05-26 23:59:00 Hospital Encounter Desiree Boudreaux [facility] 1.2.840.114 350.1.13.10 4.2.7.2.[id number] [facility] 2023-05-26 11:45:00 2023-05-26 11:45:00 Rn Integrity Visit 2, Adc Lab Desiree Boudreaux [facility] 1.2.840.114 350.1.13.10 4.2.7.2.[id number] [facility] 2023-05-26 10:30:00 2023-05-26 11:32:00 Outpatient R DESIREE BOUDREAUX [facility] [id number] [facility] 2023-05-26 10:30:00 2023-05-26 11:32:00 Office Visit Desiree Boudreaux [facility] BUILDING 1.2.840.114 350.1.13.10 4.2.7.2.[id number] [facility] 2023-05-21 00:00:00 2023-05-21 00:00:00 Telephone Desiree Boudreaux [facility] NAL BUILDING 1.2.840.114 350.1.13.10 4.2.7.2.[id number] [facility] 2023-04-30 20:00:00 2023-04-30 20:00:00 Outpatient R [facility] [id number] [facility] 2023-04-29 00:00:00 2023-04-29 00:00:00 Refill Desiree Boudreaux [facility] 1.2.840.114 350.1.13.10 4.2.7.2.[id number] [facility] 2023-04-24 00:00:00 2023-04-24 00:00:00 Refill Cinthya Will [facility] MEDICAL OFFICE BUILDING 1.2.840.114 350.1.13.10 4.2.7.2.[id number] [facility] 2023-04-21 20:00:00 2023-04-21 20:00:00 Outpatient R MICHAEL SANDHU STRAHIL [facility] [id number] [facility] 2023-04-16 11:20:00 2023-04-16 11:20:00 Outpatient R CINTHYA WILL [facility] [id number] [facility] 2023-04-08 08:34:14 2023-04-08 23:59:00 Outpatient R CINTHYA WILL [facility] [id number] [facility] 2023-04-08 08:34:14 2023-04-08 23:59:00 Hospital Encounter Cinthya Will [facility] 1.2.840.114 350.1.13.10 4.2.7.2.[id number] [facility] 2023-04-02 08:54:39 2023-04-02 23:59:00 Outpatient R CINTHYA WILL [facility] [id number] [facility] 2023-04-02 08:54:39 2023-04-02 23:59:00 Hospital Encounter Cinthya Will [facility] 1.2.840.114 350.1.13.10 4.2.7.2.[id number] [facility] 2023-04-02 00:00:00 2023-04-02 00:00:[address] [facility] BUILDING 1.2.840.114 350.1.13.10 4.2.7.2.[id number] [facility] 2023-03-31 11:00:00 2023-03-31 11:00:00 Outpatient R MICHAEL SANDHU STRAHIL [facility] [id number] [facility] 2023-03-31 11:00:00 2023-03-31 11:00:00 Office Visit Michael Sandhu [facility] BUILDING 1.2.840.114 350.1.13.10 4.2.7.2.[id number] [facility] 2023-03-31 00:00:00 2023-03-31 00:00:00 Refill Desiree BoudreauxHIsidro [facility] 1.840.114 350.1.13.10 4.2.7.2.[id number] [facility] 2023-03-12 14:30:00 2023-03-12 14:30:00 Rn Integrity Visit Lab, Tayo - Chris Will [facility] SAMUEL?JAMA [facility] MEDICAL OFFICE BUILDING 1..114 350.1.13.10 4.2.7.2.[id number] [facility] 2023-03-12 14:30:00 2023-03-12 12:19:06 [id number] 2023-03-12 11:20:00 2023-03-12 12:00:00 Office Visit Suman [facility] MEDICAL OFFICE BUILDING 1.114 350.1.13.10 4.2.7.2.[id number] [facility] 2023-03-11 00:00:00 2023-03-11 00:00:[address] [facility] BUILDING 1..114 350.1.13.10 4.2.7.2.[id number] [facility] 2023-03-11 00:00:00 2023-03-11 00:00:00 Refill Suman [facility] SAMUEL?[facility] MEDICAL OFFICE BUILDING 1.114 350.1.13.10 4.2.7.2.[id number] [facility] 2023-02-25 00:00:00 2023-02-25 00:00:00 Refill Suman [facility] SAMUEL?[facility] MEDICAL OFFICE BUILDING 1..114 350.1.13.10 4.2.7.2.[id number] [facility] 2023-02-25 00:00:00 2023-02-25 00:00:00 Telephone SumanCinthya [facility] MED[facility] OFF[facility] BUILDING 1.2.840.114 350.1.13.10 4.2.7.2.[id number] [facility] 2023-01-29 00:00:00 2023-01-29 00:00:[address] [facility] BUILDING 1.2.840.114 350.1.13.10 4.2.7.2.[id number] [facility] 2023-01-27 10:00:00 2023-01-27 10:30:00 Office Visit Desiree Boudreaux [facility] BU[facility] 1.2.840.114 350.1.13.10 4.2.7.2.[id number] [facility] 2023-01-27 10:00:00 2023-01-27 10:00:00 Outpatient R DESIREE BOUDREAUX [facility] [id number] [facility] 2023-01-27 09:15:00 2023-01-27 09:30:00 Rn Integrity Visit 2, Adc Lab Desiree Boudreaux [facility] 1.2.840.114 350.1.13.10 4.2.7.2.[id number] [facility] 2023-01-25 00:00:00 2023-01-25 00:00:[address] [facility] 1.2.840.114 350.1.13.10 4.2.7.2.[id number] [facility] 2023-01-14 00:00:00 2023-01-14 00:00:[address] [facility] 1.2.840.114 350.1.13.10 4.2.7.2.[id number] [facility] 2023-01-08 10:30:00 2023-01-08 10:45:00 Rn Integrity Visit Lab, Tayo Will [facility] 1..840.114 350.1.13.10 4.2.7.2.[id number] [facility] 2023-01-08 10:30:00 2023-01-08 10:30:00 Outpatient R CINTHYA WILL [facility] [id number] [facility] 2023-01-08 09:40:00 2023-01-08 10:17:24 Office Visit Suman [facility] 1.840.114 350.1.13.10 4.2.7.2.[id number] [facility] 2023-01-08 00:00:00 2023-01-08 00:00:[address] [facility] 1.2.840.114 350.1.13.10 4.2.7.2.[id number] [facility] 2022-12-28 00:00:00 2022-12-28 00:00:00 Patient Outreach Radha Pat [facility] 1.2.840.114 350.1.13.10 4.2.7.2.[id number] [facility] 2022-12-25 17:00:00 2022-12-25 17:15:00 Rn Integrity Visit Lab, Ang - Db Suman [facility] 1.2.840.114 350.1.13.10 4.2.7.2.[id number] [facility] 2022-12-25 16:00:00 2022-12-25 16:46:13 Outpatient R [facility] [id number] [facility] 2022-12-25 16:00:00 2022-12-25 16:46:13 Office Visit Suman [facility] 1..840.114 350.1.13.10 4.2.7.2.[id number] [facility] 2022-12-25 00:00:00 2022-12-25 00:00:00 Refill Desiree Boudreaux K.HIsidro [facility] 1..840.114 350.1.13.10 4.2.7.2.[id number] [facility] 2022-12-24 00:00:00 2022-12-24 00:00:00 Refill Suman [facility] OFF[facility] 1..840.114 350.1.13.10 4.2.7.2.[id number] [facility] 2022-12-22 00:00:00 2022-12-22 00:00:[address] [facility] 1.2.840.114 350.1.13.10 4.2.7.2.[id number] [facility] 2022-12-20 00:00:00 2022-12-20 00:00:00 Orders Only Doctor Unassigned, [place] [facility] 1.2840.114 350.1.13.10 4.2.7.2.[id number] [facility] 2022-12-16 16:00:00 2022-12-17 07:40:48 Outpatient R DESIREE BOUDREAUX [facility] [id number] [facility] 2022-12-16 16:00:00 2022-12-17 07:40:48 Office Visit Desiree Boudreaux [facility] 1.2840.114 350.1.13.10 4.2.7.2.[id number] [facility] 2022-12-17 00:00:00 2022-12-17 00:00:[address] [facility] 1.2840.114 350.1.13.10 4.2.7.2.[id number] [facility] 2022-12-15 00:00:00 2022-12-15 00:00:00 Telephone Linheva [facility] 1.284.114 350.1.13.10 4.2.7.2.[id number] [facility] 2022-12-15 00:00:00 2022-12-15 00:00:00 Telephone Suman [facility] SAMUEL?[facility] 1.2840.114 350.1.13.10 4.2.7.2.[id number] [facility] 2022-12-03 12:00:00 2022-12-03 12:26:39 Rn Integrity Visit Lab, Tayo - Chris Will [facility] 1.2.114 350.1.13.10 4.2.7.2.[id number] [facility] 2022-12-03 11:00:00 2022-12-03 12:00:41 Outpatient R CINTHYA WILL [facility] [id number] [facility] 2022-12-03 11:00:00 2022-12-03 12:00:41 Office Visit Suman Cinthya [facility] 1..840.114 350.1.13.10 4.2.7.2.[id number] [facility] 2022-12-03 00:00:00 2022-12-03 00:00:00 Patient Outreach Bi Radha Yunior [facility] MEDICAL OFFICE BUILDING 1..840.114 350.1.13.10 4.2.7.2.[id number] [facility] 2022-11-26 00:00:00 2022-11-26 00:00:[address] [facility] BUILDING 1..840.114 350.1.13.10 4.2.7.2.[id number] [facility] 2022-11-25 10:00:00 2022-11-25 15:01:49 Outpatient R DESIREE BOUDREAUX [facility] [id number] [facility] 2022-11-25 10:00:00 2022-11-25 15:01:49 Office Visit Desiree Boudreaux [facility] BUILDING 1..840.114 350.1.13.10 4.2.7.2.[id number] [facility] 2022-11-25 10:30:00 2022-11-25 10:45:00 Rn Integrity Visit 2, Adc Lab Desiree Boudreaux.HIsidro [facility] BUILDING 1.2840.114 350.1.13.10 4.2.7.2.[id number] [facility] 2022-11-13 00:00:00 2022-11-13 00:00:00 Refill Suman [facility] MED[facility] OFFICE BUILDING 1.2840.114 350.1.13.10 4.2.7.2.[id number] [facility] 2022-11-12 00:00:00 2022-11-12 00:00:00 Refill Suman [facility] MEDICAL OFFICE BUILDING 1.2840.114 350.1.13.10 4.2.7.2.[id number] [facility] 2022-11-10 00:00:00 2022-11-10 00:00:00 Refill Desiree Boudreaux [facility] BUILDING 1.2840.114 350.1.13.10 4.2.7.2.[id number] [facility] 2022-10-27 00:00:00 2022-10-27 00:00:00 Orders Only Doctor Unassigned, [place] [facility] 1.2840.114 350.1.13.10 4.2.7.2.[id number] [facility] 2022-10-01 00:00:00 2022-10-01 00:00:00 Jing Lopez [facility] MEDICAL OFFICE BUILDING 1.2840.114 350.1.13.10 4.2.7.2.[id number] [facility] 2022-09-25 00:00:00 2022-09-25 00:00:00 Orders Only Doctor Unassigned, [place] [facility] 1.2840.114 350.1.13.10 4.2.7.2.[id number] [facility] 2022-09-15 00:00:00 2022-09-15 00:00:00 Telephone Suman [facility]?JAMA [facility] MEDICAL OFFICE BUILDING 1.2840.114 350.1.13.10 4.2.7.2.[id number] [facility] 2022-09-11 00:00:00 2022-09-11 00:00:00 Telephone Suman [facility] MEDICAL OFFICE BUILDING 1.2840.114 350.1.13.10 4.2.7.2.[id number] [facility] 2022-09-08 10:00:00 2022-09-08 10:15:02 Outpatient R [facility] [id number] [facility] 2022-09-08 10:00:00 2022-09-08 10:15:02 Office Visit Suman [facility] MEDICAL OFFICE BUILDING 1.2840.114 350.1.13.10 4.2.7.2.[id number] [facility] 2022-08-28 09:02:13 2022-08-28 23:59:00 Hospital Encounter Dominic Kidd [facility] 1.2840.114 350.1.13.10 4.2.7.2.[id number] [facility] 2022-08-28 09:02:12 2022-08-28 23:59:00 Outpatient R DOMINIC KIDD [facility] [id number] [facility] 2022-08-27 00:00:00 2022-08-27 00:00:[address] [facility] BUILDING 1.2.840.114 350.1.13.10 4.2.7.2.[id number] [facility] 2022-08-11 00:00:00 2022-08-11 00:00:[address] [facility] BUILDING 1.2.840.114 350.1.13.10 4.2.7.2.[id number] [facility] 2022-08-11 00:00:00 2022-08-11 00:00:00 Orders Only Doctor Unassigned, [place] [facility] 1.2.840.114 350.1.13.10 4.2.7.2.[id number] [facility] 2022-08-04 00:00:00 2022-08-04 00:00:00 Orders Only Doctor Unassigned, [place] [facility] 1.2.840.114 350.1.13.10 4.2.7.2.[id number] [facility] 2022-07-06 00:00:00 2022-07-06 00:00:[address] [facility] BUILDING 1.2840.114 350.1.13.10 4.2.7.2.[id number] [facility] 2022-07-06 00:00:00 2022-07-06 00:00:[address] [facility] BUILDING 1.2.840.114 350.1.13.10 4.2.7.2.[id number] [facility] 2022-07-03 10:30:00 2022-07-03 10:53:07 Outpatient R ALEJANDRA NICE [facility] [id number] [facility] 2022-07-03 10:30:00 2022-07-03 10:53:07 [facility] 1..840.114 350.1.13.10 4.2.7.2.[id number] [facility] 2022-07-03 10:30:00 2022-07-03 10:30:00 [facility] [id number] [facility] 2022-07-03 10:30:00 2022-07-03 10:30:00 Outpatient R ALEJANDRA NICE [facility] [id number] [facility] 2022-07-03 10:30:00 2022-07-03 10:30:00 Outpatient R ALEJANDRA NICE [facility] [id number] [facility] 2022-07-03 10:30:00 2022-07-03 10:30:00 Outpatient R ALEJANDRA NICE [facility] [id number] [facility] 2022-07-03 10:30:00 2022-07-03 10:30:00 Outpatient R ALEJANDRA NICE [facility] [id number] [facility] 2022-07-03 00:00:00 2022-07-03 00:00:00 Orders Only Doctor Unassigned, [place] [facility] 1.840.114 350.1.13.10 4.2.7.2.[id number] [facility] 2022-07-03 00:00:00 2022-07-03 00:00:[address] [facility] BUILDING 1..840.114 350.1.13.10 4.2.7.2.[id number] [facility] 2022-06-26 00:00:00 2022-06-26 00:00:00 Telephone Suman [facility]EL[facility] 1.84.114 350.1.13.10 4.2.7.2.[id number] [facility] 2022-06-24 00:00:00 2022-06-24 00:00:00 Refill Suman [facility] SAMUEL?JAMA [facility] OFFICE BUILDING 1.84.114 350.1.13.10 4.2.7.2.[id number] [facility] 2022-06-19 00:00:00 2022-06-19 00:00:00 Telephone Suman [facility] SAMUEL?[facility] OFF[facility] BUILDING 1.840.114 350.1.13.10 4.2.7.2.[id number] [facility] 2022-06-08 10:20:00 2022-06-08 11:01:58 Outpatient R SUMAN [facility] [id number] [facility] 2022-06-08 10:20:00 2022-06-08 11:01:58 Office Visit Suman [facility] SAMUEL?[facility] BU[facility] 1.840.114 350.1.13.10 4.2.7.2.[id number] [facility] 2022-05-27 09:30:00 2022-05-27 10:01:00 Outpatient R DESIREE BOUDREAUX [facility] [id number] [facility] 2022-05-27 09:30:00 2022-05-27 10:01:00 Office Visit Desiree Boudreaux [facility] NAL BUILDING 1.84.114 350.1.13.10 4.2.7.2.[id number] [facility] 2022-05-25 08:30:00 2022-05-25 10:04:00 Outpatient R SUMAN [facility] [id number] [facility] 2022-05-25 08:30:00 2022-05-25 10:04:00 Rn Integrity Visit Lab, Ang - Db Suman [facility] MEDICAL OFFICE BUILDING 1.2.840.114 350.1.13.10 4.2.7.2.[id number] [facility] 2022-05-25 09:00:00 2022-05-25 09:00:00 Outpatient R [facility] [id number] [facility] 2022-05-13 00:00:00 2022-05-13 00:00:00 Orders Only Doctor Unassigned, [place] [facility] 1.2.840.114 350.1.13.10 4.2.7.2.[id number] [facility] 2022-04-06 09:20:00 2022-04-06 09:45:49 Outpatient R SUMAN [facility] [id number] [facility] 2022-04-06 09:20:00 2022-04-06 09:45:49 Office Visit Suman [facility] MEDICAL OFFICE BUILDING 1.2.840.114 350.1.13.10 4.2.7.2.[id number] [facility] 2022-04-06 09:30:00 2022-04-06 09:30:00 Outpatient R JING CONN [facility] [id number] [facility] 2022-03-05 08:13:09 2022-03-05 23:59:00 Outpatient R CINTHYA WILL [facility] [id number] [facility] 2022-03-05 08:13:09 2022-03-05 23:59:00 Hospital Encounter Suman [facility] 1.2.840.114 350.1.13.10 4.2.7.2.[id number] [facility] 2022-02-24 00:00:00 2022-02-24 00:00:00 Desiree Hadley [facility] NAL BUILDING 1..840.114 350.1.13.10 4.2.7.2.[id number] [facility] 2022-02-24 00:00:00 2022-02-24 00:00:00 [facility] MEDICAL OFFICE BUILDING 1..840.114 350.1.13.10 4.2.7.2.[id number] [facility] 2022-01-26 11:30:00 2022-01-26 11:45:00 Rn Integrity Visit Lab, Tayo - [facility] MEDICAL OFFICE BUILDING 1..840.114 350.1.13.10 4.2.7.2.[id number] [facility] 2022-01-26 10:40:00 2022-01-26 11:24:50 Outpatient R SUMAN [facility] [id number] [facility] 2022-01-26 10:40:00 2022-01-26 11:24:50 [facility] MEDICAL OFFICE BUILDING 1..840.114 350.1.13.10 4.2.7.2.[id number] [facility] 2022-01-26 10:40:00 2022-01-26 10:40:00 Outpatient R SUMAN [facility] [id number] [facility] 2022-01-19 09:00:00 2022-01-19 09:50:21 Outpatient R ALEJANDRA NICE [facility] [id number] [facility] 2022-01-19 09:00:00 2022-01-19 09:50:21 Office Visit Alejandra Nice [facility] BUILDING 1.2.840.114 350.1.13.10 4.2.7.2.[id number] [facility] 2022-01-14 00:00:00 2022-01-14 00:00:00 [facility] OFF[facility] BUILDING 1.2.840.114 350.1.13.10 4.2.7.2.[id number] [facility] 2022-01-12 00:00:00 2022-01-12 00:00:00 Telephone Desiree Boudreaux [facility] 1.2.840.114 350.1.13.10 4.2.7.2.[id number] [facility] 2022-01-08 00:00:00 2022-01-08 00:00:[address] [facility] BUILDING 1.2.840.114 350.1.13.10 4.2.7.2.[id number] [facility] 2022-01-06 08:45:00 2022-01-06 09:00:00 Rn Integrity Visit Lab, Julita Wahlthia [facility] SAMUEL[facility] 1.2.840.114 350.1.13.10 4.2.7.2.[id number] [facility] 2022-01-06 08:45:00 2022-01-06 08:42:53 Outpatient R JING CONN [facility] [id number] [facility] 2021-12-22 09:00:00 2021-12-22 09:39:28 Outpatient R ALEJANDRA NICE [facility] [id number] [facility] 2021-12-22 09:00:00 2021-12-22 09:39:28 Office Visit Alejandra Nice [facility] BUILDING 1.2.840.114 350.1.13.10 4.2.7.2.[id number] [facility] 2021-12-22 09:00:00 2021-12-22 09:39:28 Outpatient R ALEJANDRA NICE [facility] [id number] [facility] 2021-12-16 08:00:00 2021-12-16 08:06:31 Outpatient R DESIREE BOUDREAUX [facility] [id number] [facility] 2021-12-16 08:00:00 2021-12-16 08:06:31 Rn Integrity Visit Lab, Desiree Shelton [facility] MEDICAL OFFICE BUILDING 1.2.840.114 350.1.13.10 4.2.7.2.[id number] [facility] 2021-12-16 00:00:00 2021-12-16 00:00:[address] [facility] BUILDING 1.2.840.114 350.1.13.10 4.2.7.2.[id number] [facility] 2021-12-15 09:30:00 2021-12-15 09:48:51 Office Visit Jing Cnon [facility] MEDICAL OFFICE BUILDING 1.2.840.114 350.1.13.10 4.2.7.2.[id number] [facility] 2021-12-15 09:30:00 2021-12-15 09:48:51 Outpatient R ANENE, JING [facility] [id number] [facility] 2021-12-15 09:30:00 2021-12-15 09:30:00 Outpatient R JING CONN [facility] [id number] [facility] 2021-12-15 00:00:00 2021-12-15 00:00:00 [facility] 1.2.840.114 350.1.13.10 4.2.7.2.[id number] [facility] 2021-12-09 00:00:00 2021-12-09 00:00:00 Orders Only Doctor Unassigned, [place] [facility] 1.2.840.114 350.1.13.10 4.2.7.2.[id number] [facility] 2021-12-04 00:00:00 2021-12-04 00:00:00 Telephone Dany Cm [facility] SAMUEL?[facility]ILD[facility] 1.2.840.114 350.1.13.10 4.2.7.2.[id number] [facility] 2021-12-01 00:00:00 2021-12-01 00:00:[address] [facility] BUILDING 1.2.840.114 350.1.13.10 4.2.7.2.[id number] [facility] 2021-11-27 00:00:00 2021-11-27 00:00:[address] [facility] BUILDING 1.2.840.114 350.1.13.10 4.2.7.2.[id number] [facility] 2021-11-24 09:00:00 2021-11-24 09:15:07 Outpatient R JANUSZ DESIREE [facility] [id number] [facility] 2021-11-24 09:00:00 2021-11-24 09:15:07 Office Visit Desiree Boudreaux [facility] BUILDING 1.2.840.114 350.1.13.10 4.2.7.2.[id number] [facility] 2021-11-24 09:00:00 2021-11-24 09:00:00 Outpatient R DESIREE BOUDREAUX [facility] [id number] [facility] 2021-11-24 00:00:00 2021-11-24 00:00:[address] [facility] BUILDING 1.2.840.114 350.1.13.10 4.2.7.2.[id number] [facility] 2021-11-21 00:00:00 2021-11-21 00:00:[address] [facility] BUILDING 1.2.840.114 350.1.13.10 4.2.7.2.[id number] [facility] 2021-11-18 08:36:17 2021-11-18 23:59:00 Outpatient R DESIREE BOUDREAUX [facility] [id number] [facility] 2021-11-18 10:00:00 2021-11-18 10:15:00 Rn Integrity Visit 2, Adc Lab Desiree Boudreaux [facility] BUILDING 1.2.840.114 350.1.13.10 4.2.7.2.[id number] [facility] 2021-11-18 10:00:00 2021-11-18 10:00:00 Outpatient R [facility] [id number] [facility] 2021-11-18 09:00:00 2021-11-18 09:00:00 Outpatient R DESIREE BOUDREAUX [facility] [id number] [facility] 2021-11-18 08:36:17 2021-11-18 08:36:17 Outpatient DESIREE BOLAND [facility] [id number] [facility] 2021-11-13 00:00:00 2021-11-13 00:00:00 Telephone Jing Conn [facility] MEDICAL OFFICE BUILDING 1..840.114 350.1.13.10 4.2.7.2.[id number] [facility] 2021-11-10 00:00:00 2021-11-10 00:00:00 Orders Only Doctor Unassigned, [place] [facility] 1..840.114 350.1.13.10 4.2.7.2.[id number] [facility] 2021-10-23 10:00:00 2021-10-23 10:00:00 Office Visit Krystina Tejeda [facility] MEDICAL OFFICE BUILDING 1..840.114 350.1.13.10 4.2.7.2.[id number] [facility] 2021-10-23 10:00:00 2021-10-23 09:53:14 Outpatient R KRYSTINA TEJEDA [facility] [id number] [facility] 2021-10-15 08:22:20 2021-10-15 23:59:00 Outpatient R KRYSTINA TEJEDA [facility] [id number] [facility] 2021-10-15 08:22:20 2021-10-15 23:59:00 Hospital Encounter Krystina Tejeda [facility] 1.840.114 350.1.13.10 4.2.7.2.[id number] [facility] 2021-09-25 00:00:00 2021-09-25 00:00:00 Telephone Krystina Tejeda [facility] SAMUEL?JAMA [facility] MEDICAL OFFICE BUILDING 1.114 350.1.13.10 4.2.7.2.[id number] [facility] 2021-09-19 09:45:00 2021-09-19 09:45:38 [facility] MEDICAL OFFICE BUILDING 1.114 350.1.13.10 4.2.7.2.[id number] [facility] 2021-09-19 09:45:00 2021-09-19 09:45:38 Outpatient R KRYSTINA TEJEDA [facility] [id number] [facility] 2021-09-19 09:45:00 2021-09-19 09:45:00 Outpatient R KRYSTINA TEJEDA [facility] [id number] [facility] 2021-09-18 00:00:00 2021-09-18 00:00:00 Telephone Toi [facility] MEDICAL OFFICE BUILDING 1.114 350.1.13.10 4.2.7.2.[id number] [facility] 2021-09-18 00:00:00 2021-09-18 00:00:00 Refill [facility]ing [facility] MEDICAL OFFICE BUILDING 1.114 350.1.13.10 4.2.7.2.[id number] [facility] 2021-09-14 00:00:00 2021-09-14 00:00:00 Orders Only Doctor Unassigned, [place] [facility] 1.114 350.1.13.10 4.2.7.2.[id number] [facility] 2021-09-01 00:00:00 2021-09-01 00:00:00 Des[facility]e [facility] 1..840.114 350.1.13.10 4.2.7.2.[id number] [facility] 2021-08-27 00:00:00 2021-08-27 00:00:00 Telephone Dany Cm [facility] 1.840.114 350.1.13.10 4.2.7.2.[id number] [facility] 2021-08-26 00:00:00 2021-08-26 00:00:00 Telephone [facility] MEDICAL OFFICE BUILDING 1.840.114 350.1.13.10 4.2.7.2.[id number] [facility] 2021-08-26 00:00:00 2021-08-26 00:00:00 Orders Only Doctor Unassigned, [place] [facility] 1.840.114 350.1.13.10 4.2.7.2.[id number] [facility] 2021-08-21 11:00:00 2021-08-21 11:30:52 Outpatient R KRYSTINA TEJEDA [facility] [id number] [facility] 2021-08-21 11:15:00 2021-08-21 11:30:00 Rn Integrity Visit Lab, [facility] MED[facility] OFF[facility] BUILDING 1..840.114 350.1.13.10 4.2.7.2.[id number] [facility] 2021-08-21 11:00:00 2021-08-21 11:15:00 Office Visit Dany Cm Craig Yunior [facility]?JAMA [facility] BUILDING 1.2.840.114 350.1.13.10 4.2.7.2.[id number] [facility] 2021-08-21 11:00:00 2021-08-21 11:00:00 Outpatient R KRYSTINA TEJEDA [facility] [id number] [facility] 2021-08-21 10:30:00 2021-08-21 11:00:00 Office Visit Jing Conn [facility]?JAMA [facility] BU[facility] 1..840.114 350.1.13.10 4.2.7.2.[id number] [facility] 2021-08-21 10:30:00 2021-08-21 10:30:00 Outpatient Letitia JING CONN [facility] [id number] [facility] 2021-08-09 00:00:00 2021-08-09 00:00:00 Desiree Hadley [facility] 1.2.840.114 350.1.13.10 4.2.7.2.[id number] [facility] 2021-07-30 00:00:00 2021-07-30 00:00:[address] [facility] BUILDING 1.2.840.114 350.1.13.10 4.2.7.2.[id number] [facility] 2021-07-28 10:43:00 2021-07-28 12:23:00 Emergency Julia Garcia [facility] 1.2.840.114 350.1.13.10 4.2.7.2.[id number] [facility] 2021-07-28 09:30:00 2021-07-28 10:01:41 Office Visit Desiree Boudreaux [facility] BUILDING 1.2.840.114 350.1.13.10 4.2.7.2.[id number] [facility] 2021-07-28 09:30:00 2021-07-28 10:01:41 Outpatient R DESIREE BOUDREAUX [facility] [id number] [facility] 2021-07-28 09:30:00 2021-07-28 10:01:41 Outpatient R DESIREE BOUDREAUX [facility] ERT [id number] [facility] 2021-07-28 09:30:00 2021-07-28 10:01:41 Outpatient R DESIREE BOUDREAUX [facility] [id number] [facility] 2021-07-28 09:30:00 2021-07-28 10:01:41 Office Visit Desiree Boudreaux [facility] 1..840.114 350.1.13.10 4.2.7.2.[id number] [facility] 2021-07-28 09:30:00 2021-07-28 09:30:00 Outpatient R DESIREE BOUDREAUX [facility] [id number] [facility] 2021-07-28 09:30:00 2021-07-28 09:30:00 Outpatient R DESIREE BOUDREAUX [facility] [id number] [facility] 2021-07-24 00:00:00 2021-07-24 00:00:00 Shaggy Whitmore [facility] OFFICE BUILDING ONE 1.2.840.114 350.1.13.10 4.2.7.2.[id number] [facility] 2021-07-23 10:00:00 2021-07-23 10:00:00 Outpatient R BOUDREAUXDESIREE CONTE [facility] [id number] [facility] 2021-07-04 09:30:00 2021-07-04 10:13:30 Outpatient Letitia NICECARMINEHA [facility] [id number] [facility] 2021-07-02 09:00:00 2021-07-02 09:28:07 [facility] 1.2.840.114 350.1.13.10 4.2.7.2.[id number] [facility] 2021-07-02 09:00:00 2021-07-02 09:28:07 Outpatient R MICHAEL SANDHU STRANJYunior [facility] [id number] [facility] 2021-07-02 09:00:00 2021-07-02 09:00:00 Outpatient MICHAEL SWEENEY STRANJYunior [facility] [id number] [facility] 2021-07-02 00:00:00 2021-07-02 00:00:00 Orders Only Doctor Unassigned, [place] [address]840.114 350.1.13.10 4.2.7.2.[id number] [facility] 2021-06-20 00:00:00 2021-06-20 00:00:00 Orders Only Doctor Unassigned, [place] [address]840.114 350.1.13.10 4.2.7.2.[id number] [facility] 2021-06-14 19:30:00 2021-06-14 19:30:00 Outpatient R MICHAEL SANDHU STRANJYunior [facility] [id number] [facility] 2021-06-12 09:45:00 2021-06-12 09:45:00 Outpatient R [facility] [id number] [facility] 2021-06-07 19:30:00 2021-06-07 22:00:00 Rn Integrity Visit 1, [facility] Sleep Lab Bed Ana Sandhuhil T [facility] 1.840.114 350.1.13.10 4.2.7.2.[id number] [facility] 2021-06-07 19:30:00 2021-06-07 19:30:00 Outpatient R ATANASOV, STRAHIL ATANASOV, STRAHIL [facility] [id number] [facility] 2021-06-07 00:00:00 2021-06-07 00:00:00 Orders Only Doctor Unassigned, [place] [facility] 1.840.114 350.1.13.10 4.2.7.2.[id number] [facility] 2021-05-28 09:40:00 2021-05-28 09:40:00 Outpatient R ATANASOV, STRAHIL ATANASOV, STRAHIL [facility] [id number] [facility] 2021-05-12 09:20:00 2021-05-12 09:20:00 Outpatient R KRYSTINA TEJEDA [facility] [id number] [facility] 2021-05-07 19:30:00 2021-05-07 19:30:00 Outpatient R ATANASOV, STRAHIL ATANASOV, STRAHIL [facility] [id number] [facility] 2021-05-05 09:45:00 2021-05-05 10:00:00 Laboratory Only Only, [facility] Test Ana Sandhuhil T [facility] 1.840.114 350.1.13.10 4.2.7.2.[id number] [facility] 2021-05-05 09:45:00 2021-05-05 09:45:00 Outpatient R ATANASOV, STRAHIL ATANASOV, STRAHIL [facility] [id number] [facility] 2021-05-05 00:00:00 2021-05-05 00:00:00 Orders Only Doctor Unassigned, [place] [facility] 1.2840.114 350.1.13.10 4.2.7.2.[id number] [facility] 2021-04-29 00:00:00 2021-04-29 00:00:00 Orders Only Doctor Unassigned, [place] [facility] 1.2840.114 350.1.13.10 4.2.7.2.[id number] [facility] 2021-04-24 00:00:00 2021-04-24 00:00:00 Telephone Desiree Boudreaux [facility] 1.2.840.114 350.1.13.10 4.2.7.2.[id number] [facility] 2021-04-22 10:00:00 2021-04-22 10:30:00 Office Visit [facility] 1.2.840.114 350.1.13.10 4.2.7.2.[id number] [facility] 2021-04-22 10:00:00 2021-04-22 10:13:07 Outpatient R MICHAEL SANDHU STRANJYunior [facility] [id number] [facility] 2021-04-22 10:00:00 2021-04-22 10:00:00 Outpatient R MICHAEL SANDHU STRANJYunior [facility] [id number] [facility] 2021-04-21 13:40:00 2021-04-21 15:17:05 Outpatient KRYTSINA MENG [facility] [id number] [facility] 2021-04-21 13:40:00 2021-04-21 15:17:05 Ancillary Visit Leigh Hill Craig L [facility] 1..840.114 350.1.13.10 4.2.7.2.[id number] [facility] 2021-04-21 13:40:00 2021-04-21 15:17:05 Outpatient R KRYSTINA TEJEDA [facility] [id number] [facility] 2021-04-16 09:15:00 2021-04-16 09:30:00 Rn Integrity Visit Poayde, Adc Lab Main Desiree Boudreaux [facility] 1..840.114 350.1.13.10 4.2.7.2.[id number] [facility] 2021-04-16 09:15:00 2021-04-16 09:15:00 Outpatient R DESIREE BOUDREAUX [facility] [id number] [facility] 2021-04-16 09:15:00 2021-04-16 09:15:00 Outpatient R DESIREE BOUDREAUX [facility] [id number] [facility] 2021-04-16 00:00:00 2021-04-16 00:00:00 Refill Desiree Boudreaux [facility] 1..840.114 350.1.13.10 4.2.7.2.[id number] [facility] 2021-04-11 00:00:00 2021-04-11 00:00:00 Telephone Alejandra Nice [facility] 1..840.114 350.1.13.10 4.2.7.2.[id number] [facility] 2021-04-08 09:33:47 2021-04-08 09:34:03 Nurse Visit Nurse, Adc Sunday [facility] 1.2.840.114 350.1.13.10 4.2.7.2.[id number] [facility] 2021-04-08 10:30:00 2021-04-08 09:10:27 [id number] 2021-04-08 10:30:00 2021-04-08 09:10:27 Outpatient R [facility] [id number] [facility] 2021-04-08 09:10:19 2021-04-08 09:10:27 Imm/Inj Visit Nurse, [facility] Pob Immunizatio igor Eran Almendarez [facility] BUILDING 1..840.114 350.1.13.10 4.2.7.2.[id number] [facility] 2021-04-04 09:30:00 2021-04-04 10:00:49 Outpatient R ALEJANDRA NICE [facility] [id number] [facility] 2021-04-04 09:30:00 2021-04-04 10:00:49 Outpatient R ALEJANDRA NICE [facility] [id number] [facility] 2021-04-04 08:59:12 2021-04-04 10:00:49 Office Visit Alejandra Nice [facility] BUILD[facility] 1.2.840.114 350.1.13.10 4.2.7.2.[id number] [facility] 2021-04-04 09:30:00 2021-04-04 09:30:00 Outpatient R ALEJANDRA NICE [facility] [id number] [facility] 2021-04-04 00:00:00 2021-04-04 00:00:[address] [facility] BUILDING 1..840.114 350.1.13.10 4.2.7.2.[id number] [facility] 2021-03-24 00:00:00 2021-03-24 00:00:00 Case Management Shaggy Winslow [facility] SAMUEL?[facility] OFF[facility] BUILDING 1..840.114 350.1.13.10 4.2.7.2.[id number] [facility] 2021-03-18 10:00:00 2021-03-18 10:00:00 Outpatient R MICHAEL SANDHU STRAHIL [facility] [id number] [facility] 2021-03-18 09:35:15 2021-03-18 09:50:15 Rn Integrity Visit [facility], [facility] Sleep Lab Michael Sandhu [facility] 1..840.114 350.1.13.10 4.2.7.2.[id number] [facility] 2021-03-17 00:00:00 2021-03-17 00:00:00 Telephone Alejandra Nice [facility] NAL BUILDING 1..840.114 350.1.13.10 4.2.7.2.[id number] [facility] 2021-03-12 10:12:00 2021-03-12 12:40:00 Outpatient R DOMINIC KIDD [facility] [id number] [facility] 2021-03-12 10:12:00 2021-03-12 12:40:00 Hospital Encounter Dominic Kidd [facility] 1.2840.114 350.1.13.10 4.2.7.2.[id number] [facility] 2021-03-12 11:44:00 2021-03-12 12:23:00 Surgery Dominic Kidd [facility] 1.114 350.1.13.10 4.2.7.2.[id number] [facility] 2021-03-12 00:00:00 2021-03-12 00:00:00 Orders Only Doctor Unassigned, [place] [facility] 1.20114 350.1.13.10 4.2.7.2.[id number] [facility] 2021-03-11 10:45:00 2021-03-11 10:45:00 Outpatient R DOMINIC KIDD [facility] [id number] [facility] 2021-03-11 10:45:00 2021-03-11 10:45:00 Outpatient R DOMINIC KIDD [facility] [id number] [facility] 2021-03-11 10:45:00 2021-03-11 10:45:00 Outpatient R DOMINIC KIDD [facility] [id number] [facility] 2021-03-10 13:00:00 2021-03-10 13:34:06 Outpatient R SHAGGY WINSLOW [facility] [id number] [facility] 2021-03-10 12:28:10 2021-03-10 13:34:06 Office Visit Shaggy Winslow [facility] SAMUEL?[facility] MEDICAL OFFICE BUILDING 1.84.114 350.1.13.10 4.2.7.2.[id number] [facility] 2021-03-08 00:00:00 2021-03-08 00:00:00 Case Management Ashley Yamilextremayne Mady [facility] SAMUEL?[facility] MEDICAL OFFICE BUILDING 1.840.114 350.1.13.10 4.2.7.2.[id number] [facility] 2021-03-07 08:23:09 2021-03-07 23:59:00 Hospital Encounter Shaggy Winslow [facility] 1.2.840.114 350.1.13.10 4.2.7.2.[id number] [facility] 2021-03-07 00:00:00 2021-03-07 23:59:00 Outpatient R SHAGGY WINSLOW [facility] [id number] [facility] 2021-03-07 00:00:00 2021-03-07 23:59:00 Outpatient R SHAGGY WINSLOW [facility] [id number] [facility] 2021-03-07 09:21:20 2021-03-07 09:36:20 Rn Integrity Visit Pob, Adc Lab Main Shaggy Winslow [facility] NAL BUILDING 1..840.114 350.1.13.10 4.2.7.2.[id number] [facility] 2021-03-07 08:22:34 2021-03-07 08:22:34 Hospital Encounter Shaggy Winslow [facility] 1.2.840.114 350.1.13.10 4.2.7.2.[id number] [facility] 2021-03-07 08:22:34 2021-03-07 08:22:34 Outpatient R SHAGGY WINSLOW [facility] [id number] [facility] 2021-03-04 00:00:00 2021-03-04 00:00:00 Telephone [facility] 1.2.840.114 350.1.13.10 4.2.7.2.[id number] [facility] 2021-02-28 08:59:37 2021-02-28 23:59:00 Hospital Encounter Shaggy Winslow [facility] 1.2.840.114 350.1.13.10 4.2.7.2.[id number] [facility] 2021-02-28 08:57:31 2021-02-28 08:58:00 Hospital Encounter Shaggy Winslow [facility] 1.2.840.114 350.1.13.10 4.2.7.2.[id number] [facility] 2021-02-28 08:57:31 2021-02-28 08:58:00 Outpatient R SHAGGY WINSLOW [facility] [id number] [facility] 2021-02-27 00:00:00 2021-02-27 00:00:00 Orders Only Doctor Unassigned, [place] [facility] 1.2.840.114 350.1.13.10 4.2.7.2.[id number] [facility] 2021-02-25 00:00:00 2021-02-25 00:00:00 Telephone Alejandra Nice [facility] 1.2.840.114 350.1.13.10 4.2.7.2.[id number] [facility] 2021-02-21 09:21:47 2021-02-21 12:11:05 Office Visit Alejandra Nice [facility] 1.2.840.114 350.1.13.10 4.2.7.2.[id number] [facility] 2021-02-21 10:30:00 2021-02-21 10:30:00 Outpatient R ALEJANDRA NICE [facility] [id number] [facility] 2021-02-21 00:00:00 2021-02-21 00:00:00 Case Management Shaggy Winslow [facility] Medical [facility] Building 1.84114 350.1.13.10 4.2.7.2.[id number] [facility] 2021-02-21 00:00:00 2021-02-21 00:00:00 Telephone Alejandra Nice [facility] Building 1..114 350.1.13.10 4.2.7.2.[id number] [facility] 2021-02-18 10:09:19 2021-02-18 10:24:19 Rn Integrity Visit Lab, Tayo Perez Shaggy Winslow [facility] Samuel?[facility] Medical Office Building 1..114 350.1.13.10 4.2.7.2.[id number] [facility] 2021-02-18 08:53:27 2021-02-18 10:11:05 Office Visit Shaggy Winslow [facility] Samuel?[facility] Medical Office Building 1.84114 350.1.13.10 4.2.7.2.[id number] [facility] 2021-02-18 09:30:00 2021-02-18 09:30:00 Outpatient R SHAGGY WINSLOW [facility] [id number] [facility] 2021-02-18 00:00:00 2021-02-18 00:00:00 Orders Only Doctor Unassigned, [place] [facility] 1.114 350.1.13.10 4.2.7.2.[id number] [facility] 2021-02-11 00:00:00 2021-02-11 00:00:00 Desiree Hadley [facility] Building 1.84.114 350.1.13.10 4.2.7.2.[id number] [facility] 2021-02-08 00:00:00 2021-02-08 00:00:00 Shaggy Whitmore [facility] OFFICE BUILDING ONE 1.2.840.114 350.1.13.10 4.2.7.2.[id number] [facility] 2021-01-22 09:17:00 2021-01-22 09:32:00 Rn Integrity Visit 2, Adc Lab Desiree Boudreaux [facility] Building 1.2.840.114 350.1.13.10 4.2.7.2.[id number] [facility] 2021-01-22 08:46:05 2021-01-22 09:10:36 Office Visit Desiree Boudreaux [facility] Building 1.2.840.114 350.1.13.10 4.2.7.2.[id number] [facility] 2021-01-22 08:46:05 2021-01-22 09:10:36 Office Visit Desiree Boudreaux [facility] Building 1.2.840.114 350.1.13.10 4.2.7.2.[id number] [facility] 2021-01-22 09:00:00 2021-01-22 09:00:00 Outpatient R DESIREE BOUDREAUX [facility] [id number] [facility] 2020-10-24 00:00:00 2020-10-24 00:00:00 Telephone Desiree Boudreaux [facility] Building 1.2.840.114 350.1.13.10 4.2.7.2.[id number] [facility] 2020-10-15 10:08:42 2020-10-15 10:44:13 Office Visit Desiree Boudreaux [facility] Building 1.2840.114 350.1.13.10 4.2.7.2.[id number] [facility] 2020-10-15 10:30:00 2020-10-15 10:30:00 Outpatient R DESIREE BOUDREAUX [facility] [id number] [facility] 2020-10-15 09:10:30 2020-10-15 09:25:30 Rn Integrity Visit 2, Adc Lab Shaggy Winslow [facility] Building 1.2840.114 350.1.13.10 4.2.7.2.[id number] [facility] 2020-08-26 09:31:24 2020-08-26 23:59:00 Hospital Encounter Shaggy Winslow [facility] 1.840.114 350.1.13.10 4.2.7.2.[id number] [facility] 2020-08-26 00:00:00 2020-08-26 00:00:00 Outpatient R SHAGGY WINSLOW [facility] [id number] [facility] 2020-08-26 00:00:00 2020-08-26 00:00:00 Orders Only Doctor Unassigned, [place] [facility] 1.2840.114 350.1.13.10 4.2.7.2.[id number] [facility] 2020-08-20 08:33:21 2020-08-20 10:03:25 Office Visit Shaggy Winslow [facility] Office Building One 1.2840.114 350.1.13.10 4.2.7.2.[id number] [facility] 2020-08-20 08:45:00 2020-08-20 08:45:00 Outpatient R SHAGGY WINSLOW [facility] [id number] [facility] 2020-08-15 10:30:00 2020-08-15 10:30:00 Outpatient R DESIREE BOUDREAUX [facility] [id number] [facility] 2020-08-15 09:53:17 2020-08-15 10:26:09 Office Visit Desiree Boudreaux [facility] Building 1..840.114 350.1.13.10 4.2.7.2.[id number] [facility] 2020-08-01 16:00:00 2020-08-01 16:00:00 Outpatient R ZI HERZOG [facility] [id number] [facility] 2020-07-11 16:00:00 2020-07-11 16:00:00 Outpatient R ZI HERZOG [facility] [id number] [facility] 2020-04-16 09:22:43 2020-04-16 10:19:03 Office Visit Desiree Boudreaux [facility] Building 1..840.114 350.1.13.10 4.2.7.2.[id number] [facility] 2020-04-16 10:00:00 2020-04-16 10:00:00 Outpatient R DESIREE BOUDREAUX [facility] [id number] [facility] 2020-03-14 10:12:21 2020-03-14 11:41:50 Laboratory Only Pc, Adc Echo Room - [facility] nal Building 1.2.840.114 350.1.13.10 4.2.7.2.[id number] [facility] 2020-03-14 11:00:00 2020-03-14 11:00:00 Outpatient R [facility] [id number] [facility] 2020-03-14 00:00:00 2020-03-14 00:00:00 Telephone Desiree Boudreaux [facility] 1.2.840.114 350.1.13.10 4.2.7.2.[id number] [facility] 2020-03-13 07:51:43 2020-03-13 23:59:00 Hospital Encounter Desiree Boudreaux [facility] 1.2.840.114 350.1.13.10 4.2.7.2.[id number] [facility] 2020-03-13 07:51:12 2020-03-13 23:59:00 Hospital Encounter Desiree Boudreaux [facility] 1.2.840.114 350.1.13.10 4.2.7.2.[id number] [facility] 2020-03-13 07:00:00 2020-03-13 07:00:00 Outpatient R DESIREE BOUDREAUX [facility] [id number] [facility] 2020-03-12 08:05:27 2020-03-12 23:59:00 Hospital Encounter Desiree Boudreaux [facility] 1.2.840.114 350.1.13.10 4.2.7.2.[id number] [facility] 2020-03-12 08:05:12 2020-03-12 23:59:00 Hospital Encounter Desiree Boudreaux [facility] 1.2.840.114 350.1.13.10 4.2.7.2.[id number] [facility] 2020-03-12 09:00:2020-03-12 09:00:00 Outpatient DESIREE BOUDREAUX [facility] [id number] [facility] 2020-03-05 09:35:47 2020-03-05 10:14:17 Office Visit Desiree Boudreaux [facility] nal Building 1.0.114 350.1.13.10 4.2.7.2.[id number] [facility] 2020-03-05 09:30:00 2020-03-05 09:30:00 Outpatient R DESIREE BOUDREAUX [facility] [id number] [facility] 2020-03-05 00:00:00 2020-03-05 00:00:00 Orders Only Doctor Unassigned, [place] [facility] 1.0.114 350.1.13.10 4.2.7.2.[id number] [facility] 2020-02-29 00:00:00 2020-02-29 00:00:00 Telephone Shaggy Winslow [facility] Office Building One 1..114 350.1.13.10 4.2.7.2.[id number] [facility] 2020-02-27 00:00:00 2020-02-27 00:00:00 Refill Shaggy Winslow [facility] Office Building One 1.114 350.1.13.10 4.2.7.2.[id number] [facility] 2020-02-25 00:00:00 2020-02-25 00:00:00 Case Management Shaggy Winslow [facility] Office Building One 1..114 350.1.13.10 4.2.7.2.[id number] [facility] 2020-02-21 00:00:00 2020-02-21 00:00:00 Case Management Shaggy Winslow [facility] Office Building One 1.0.114 350.1.13.10 4.2.7.2.[id number] [facility] 2020-02-20 09:36:04 2020-02-20 09:56:04 Rn Integrity Visit Lab, Adc Fam Pob I Shaggy Winslow [facility] Office Building One 1..114 350.1.13.10 4.2.7.2.[id number] [facility] 2020-02-20 08:38:38 2020-02-20 09:42:24 Office Visit Shaggy Winslow [facility] Office Building One 1.0.114 350.1.13.10 4.2.7.2.[id number] [facility] 2020-02-20 08:45:00 2020-02-20 08:45:00 Outpatient R SHAGGY WINSLOW [facility] [id number] [facility] 2020-02-14 08:40:00 2020-02-14 23:59:00 Hospital Encounter Shaggy Winslow [facility] 1.0.114 350.1.13.10 4.2.7.2.[id number] [facility] 2020-02-14 00:00:00 2020-02-14 00:00:00 Outpatient R SHAGGY WINSLOW [facility] [id number] [facility] 2020-02-14 00:00:00 2020-02-14 00:00:00 Orders Only Doctor Unassigned, [place] [facility] 1.840.114 350.1.13.10 4.2.7.2.[id number] [facility] 2019-12-05 00:00:00 2019-12-05 00:00:00 [facility] [place] 1.840.114 350.1.13.10 4.2.7.2.[id number] [facility] 2019-08-24 08:45:00 2019-08-24 08:45:00 Outpatient R YAMILEX WINSLOWANTHONY [facility] [id number] [facility] 2019-08-24 07:14:47 2019-08-24 07:29:47 Telemedici ne Visit Shaggy Winslow [facility] Building 1.84.114 350.1.13.10 4.2.7.2.[id number] [facility] 2019-08-24 00:00:00 2019-08-24 00:00:00 Letter (Out) Doctor Unassigned, [place] [facility] 1.84.114 350.1.13.10 4.2.7.2.[id number] [facility] 2018-12-21 12:51:55 2018-12-21 13:57:03 Office Visit Rosie Muñiz [facility] 1.84.114 350.1.13.10 4.2.7.2.[id number] [facility] 2018-12-21 00:00:00 2018-12-21 00:00:00 Orders Only Doctor Unassigned, [place] [facility] 1.2840.114 350.1.13.10 4.2.7.2.[id number] [facility] Results Test Description Test Time Test Comments Results Result Co mments Source [facility] GLUCOSE (AUTOMATED)2023-10-19 21:37:21* Test Item Value Reference Range Interpretation Comme nts POCT GLU (test code = 1643089097) 114 mg/dL 70-110 H Lab Interpretation (test cod e = 05894-4) Abnormal [facility] GLUCOSE (AUTOMATED)2023-10-19 17:01:48* Test Item Value Reference Range Interpretation Comme nts POCT GLU (test code = 3577464115) 84 mg/dL 70-110 Lab Interpretation (test cod e = 10692-5) Normal [facility] GLUCOSE (AUTOMATED)2023-10-19 17:01:48* Test Item Value Reference Range Interpretation Comme nts POCT GLU (test code = 1335140926) 84 mg/dL 70-110 Lab Interpretation (test cod e = 46477-5) Normal [facility] GLUCOSE (AUTOMATED)2023-10-19 12:49:50* Test Item Value Reference Range Interpretation Comme nts POCT GLU (test code = 0803862444) 113 mg/dL 70-110 H Lab Interpretation (test cod e = 07534-5) Abnormal [facility] GLUCOSE (AUTOMATED)2023-10-19 12:49:50* Test Item Value Reference Range Interpretation Comme nts POCT GLU (test code = 7114583355) 113 mg/dL 70-110 H Lab Interpretation (test cod e = 42381-5) Abnormal [facility] GLUCOSE (AUTOMATED)2023-10-19 01:08:09* Test Item Value Reference Range Interpretation Comme nts POCT GLU (test code = 8475663777) 132 mg/dL 70-110 H Lab Interpretation (test cod e = 65254-1) Abnormal [facility] GLUCOSE (AUTOMATED)2023-10-19 01:08:09* Test Item Value Reference Range Interpretation Comme nts POCT GLU (test code = 9660133562) 132 mg/dL 70-110 H Lab Interpretation (test cod e = 34090-8) [facility]normal [facility] This is a pre-surgical type and screen. ONCE [id number] 12:44:00* Test Item Value Reference Range Interpretation Comme nts ABO & RH (test code = 20) O POSITIVE IAT (test code = 1185) Negative [facility] - This is a pre-surgical type and screen. ONCE [id number] 12:44:00* Test Item Value Reference Range Interpretation Comme nts ABO & RH (test code = 20) O POSITIVE IAT (test code = 1185) [facility]23-10-18 12:21:22* Test Item Value Reference Range Interpretation Comme nts POCT GLU (test code = 7772518102) 98 mg/dL 70-110 Lab Interpretation (test cod e = 38103-5) Normal [facility] GLUCOSE (AUTOMATED)2023-10-18 12:21:22* Test Item Value Reference Range Interpretation Comme nts POCT GLU (test code = 9219361646) 98 mg/dL 70-110 Lab Interpretation (test cod e = 80947-3) Normal [facility] 2 [id number] 15:30:17HISTORY: Preop. TECHNIQUE: PA and lateral views of the chest are obtained. No prior cheststudy available for comparison. FINDINGS: Minimal linear fibrosis in the left midlung zone in both lowerlungs noted. Calcified granuloma is seen in the right lower lung. No acute pneumonia detected. No pneumothorax or pleural effusion orpulmonary congestion. Cardiothoracic ratio of approximately 15/30.5 cm isconsistent with upper normal cardiac size. Multiple metallic anchors are visualized in the head of the right humerus,utilized probably for rotator cuff repair. Degenerative changes are seenthroughout middle and lower thoracic spines without any compressiondeformity in the thoracic vertebral bodies. CONCLUSIONS: No signs of acute cardiopulmonary disease.[facility] [place] Comp. Metabolic Panel (17886)2023-09-21 21:14:20* Test Item Value Reference Range Interpretation Comme nts NA (test code = 8687263507) 143 mmol/L 135-145 K (test code = 9761392045) 4.4 mmol/L 3.5-5.0 CL (test code = 3199685599) 105 mmol/L 98-108 CO2 TOTAL (test code = 7467097179) 29 mmol/L 23-31 AGAP (test code = 2558715727) 9 2-16 BUN (test code = 4213435357) 38 mg/dL 7-23 H GLUCOSE (test code = 1566496176) 117 mg/dL 70-110 H CREATININE (test code = 2160-0) 1.27 mg/dL 0.50-1.04 H TOTAL BILI (test code = 3274400526) 1.0 mg/dL 0.1-1.1 CALCIUM (test code = 6586360632) 9.6 mg/dL 8.6-10.6 T PROTEIN (test code = 2386783218) 7.4 g/dL 6.3-8.2 ALBUMIN (test code = 0242474214) 4.1 g/dL 3.5-5.0 ALK PHOS (test code = 3278199999) 117 U/L 34-122 ALTv (test code = 1742-6) 37 U/L 5-35 H AST(SGOT) (test code = 7299094385) 41 U/L 13-40 H eGFR (test code = 16743-1) 45.6 mL/min/1.73m2 CKD-EPI eGFR (2020). Assuming creatinine has been stable day-to-day for at least three months, the eGFR indicates Category G3a (45 - 59 mL/min/1.73 m2) Lab Interpretation (test code = 77296-0) Abnormal [facility] [id number] 16:28:43 Ordered by an unspecified provider.[facility] <3 VW [id number] 15:43:45XR KNEE <3 VW LEFT INDICATION: left knee pain Rm 1 COMPARISON: None FINDINGS: No acute fracture or dislocation. Meniscal chondrocalcinosis.[facility] Texas[facility]an[facility] echo (TTE) 2023-05-26 18:06:22* Test Item Value Reference Range Interpretation Comme nts Height (test code = 7798179371) 59 in Weight (test code = 9442949315) 260 lbs Systolic BP (test code = 6786597412) 152 mmHg Diastolic BP (test code = 4072845248) 73 mmHg Heart Rate (test code = 1625889872) 76 bpm Ao root diam (test code = 8636609311) 2.70 cm Aortic root (test code = 9692911147) 2.7 cm Ao root annulus (test code = 8209337871) 2.7 cm BSA (test code = 1004553713) 2.06 m2 LVOT diameter (test code = 0938043329) 1.84 cm LVOT area (test code = 4351995434) 2.70 cm2 LA size (test code = 3745018693) 4.7 cm ACS (test code = 2382791696) 2.03 cm LVIDD (test code = 4485248410) 4.70 cm Left Ventricular End Diastolic Volume by Teichholz Method (test code = 8936368) 99.9 mL IVS (test code = 6515927724) 1.14 cm Interventricular Septum Diastolic Thickness by 2D (test code = 3267002) 1.14 cm LVPWD (test code = 0768594427) 1.06 cm PW (test code = 7659713531) 1.06 cm 0.6-1.1 EF(Teich) (test code = 0626073689) 60.90 % LVIDS (test code = 2116161090) 3.10 cm Left Ventricular End Systolic Volume by Teichholz Method (test code = 2533936) 39.0 mL FS (test code = 0925946142) 33 % EF - 2D (test code = 36227031) 60.90 % PV PEAK VELOCITY (test code = 1061079203) 117.4 cm/s PV peak gradient (test code = 1654484841) 5.5 mmHg MV E-F slope (test code = 4377152562) 56.60 cm/s MV Peak E Rah (test code = 1154696163) 77.6 cm/s MV valve area p 1/2 method (test code = 3968536427) 3.30 cm2 MV dec slope (test code = 5093016029) 347.90 cm/s2 MV P1/2t max rah (test code = 9545892080) 78.10 cm/s MV Peak A Rah (test code = 1364448602) 107.4 cm/s E/A ratio (test code = 3336732418) 0.72 ratio MR max PG (test code = 1601942562) 25.50 mm[Hg] MR max rah (test code = 0634407471) 239.00 cm/s Mr max rah (test code = 3092655936) 239.0 m/s LVOT stroke volume (test code = 0475102876) 74.30 cm3 LVOT peak rah (test code = 7083264619) 142.0 cm/s LVOT mn grad (test code = 0354473779) 4.0 mmHg AV LVOT peak gradient (test code = 6377038676) 8.1 mmHg LVOT peak VTI (test code = 3899622024) 28.0 cm LV V1 mean (test code = 0090661637) 90.60 cm/s Aortic valve mean velocity (test code = 2881495892) 138.3 cm/s Ao peak rah (test code = 2520942174) 218.2 cm/s Ao VTI (test code = 4663906338) 45.3 cm AV area by cont VTI (test code = 8634796673) 1.6 cm2 AV area peak rah (test code = 1339154371) 1.7 cm2 Ao max PG (test code = 2428285719) 19.00 mm[Hg] AV peak gradient (test code = 1321312829) 19.0 mmHg AV valve area (test code = 0653750677) 1.64 cm2 AV mean gradient (test code = 4973143016) 8.9 mmHg TR Peak Rah (test code = 9774025892) 169.3 cm/s Triscuspid Valve Regurgitation Peak Gradient (test code = 7157969093) 11.5 mmHg LAV(MOD-sp4) (test code = 1560035343) 54.00 mL LA Volume Index (BP) (test code = 2881183075) 27.1 mL/m2 LA volume (BP) (test code = 2786252588) 56.0 mL LAV(MOD-sp2) (test code = 5184613565) 55.50 mL AV regurgitation pressure 1/2 time (test code = 9717340905) 758.8 ms AI dec slope (test code = 6941147070) 151.40 cm/s2 AI max rah (test code = 7196900134) 392.10 cm/s AI max PG (test code = 8969452374) 61.50 mm[Hg] Radiology Study observation (narrative) (test code = 24972-0) MELANIE (test code = MELANIE) ?Left?Ventricle: Left ventricle size is normal. Mildly increased wall thickness. Normal wall motion. Normal wall motion. Normal systolic function with a visually estimated EF of 55 - 60%. Unable to get IV for contrast. There is impaired relaxation. Normal left ventricular filling pressure. ?Tricuspid?Valve: Trace transvalvular regurgitation. Insufficient tricuspid regurgitation jet to estimate RVSP. IVC not well seen. Left VentricleLeft ventricle size is normal. Mildly increased wall thickness. Normal wall motion. Normal systolic function with a visually estimated EF of 55 - 60%. Unable to get IV for contrast. There is impaired relaxation. Normal left ventricular filling pressure.Right VentricleRight ventricle size is normal. Normal systolic function.Left AtriumLeft atrium size is normal.Right AtriumRight atrium size is normal.IVC/SVCIVC not well seen.Mitral ValveMitral valve structure is grossly normal. Trace transvalvular regurgitation.Tricusp id ValveTricuspid valve structure is grossly normal. Trace transvalvular regurgitation. Insufficient tricuspid regurgitation jet to estimate RVSP. IVC not well seen.Aortic ValveAortic valve opens well. Mildly calcified cusps. Trace transvalvular regurgitation.Pulmoni c ValveValve structure is grossly normal. Trace transvalvular regurgitation.Ascendi ng AortaNormal sized aortic root.PericardiumEvide nce of epicardial fat. No pericardial effusion.Study DetailsStudy quality experienced technical difficulty. A complete echocardiogram was performed using 2D, color flow Doppler and spectral Doppler. [facility] Texas[facility]IP[facility] ([id number])(TOTAL CHOLESTEROL, TRIGLYCERIDES, HDL)2022-12-03 21:37:10* Test Item Value Reference Range Interpretation Comme nts CHOL (test code = 0162963537) 72 mg/dL 120-200 L HDL (test code = 2230321739) 28 mg/dL >=50 L HDLC RATIO (test code = 7294779808) 2.6 <=4.5 TRIG (test code = 8773818760) 108 mg/dL 30-170 LDL CHOL (test code = 79155-8) 22 mg/dL <=160 VLDL (test code = 7054595775) 22 mg/dL 5-60 Lab Interpretation (test cod e = 80923-4) Abnormal [facility] TexasCOM. METABOLIC PANEL (89519)2022-12-03 21:36:50* Test Item Value Reference Range Interpretation Comme nts NA (test code = 3365110603) 144 mmol/L 135-145 K (test code = 5782067842) 4.4 mmol/L 3.5-5.0 CL (test code = 9294645651) 104 mmol/L 98-108 CO2 TOTAL (test code = 3617602645) 28 mmol/L 23-31 AGAP (test code = 8432731912) 12 2-16 BUN (test code = 4403815422) 22 mg/dL 7-23 GLUCOSE (test code = 8014471612) 96 mg/dL 70-110 CREATININE (test code = 0961114500) 0.89 mg/dL 0.50-1.04 TOTAL BILI (test code = 3736949564) 0.8 mg/dL 0.1-1.1 CALCIUM (test code = 6516092691) 9.5 mg/dL 8.6-10.6 T PROTEIN (test code = 8655331160) 7.5 g/dL 6.3-8.2 ALBUMIN (test code = 0335070986) 4.0 g/dL 3.5-5.0 ALK PHOS (test code = 0874825270) 162 U/L 34-122 H ALTv (test code = 1742-6) 31 U/L 5-35 AST(SGOT) (test code = 9429659027) 32 U/L 13-40 eGFR (test code = 8066691525) 62.9 mL/min/1.73m2 MELANIE (test code = MELANIE) Association of [...] or abnormalities in imaging tests). Lab Interpretation (test code = 88041-9) Abnormal [facility] URINALYSIS W/O SPECIFIC [id number] 16:21:00* Test Item Value Reference Range Interpretation Comme nts POCT PH U (test code = 3254) 5 mg/dl 5-8 POCT U LEUK EST (test code = 3263) Negative Negative - Negative POCT U NIT (test code = 3262) Negative Negative - Negati ve POCT U PROT (test code = 3259) Trace Negative - Negat estelle POCT U GLU (test code = 3256) Normal Negative - Negati ve POCT U KETONE (test code = 3258) Negative Negative - Neg ative POCT U BLD (test code = 3257) Negative Negative - Negati ve [facility] URINALYSIS W/O SPECIFIC [id number] 16:21:00* Test Item Value Reference Range Interpretation Comme nts POCT PH U (test code = 3254) 5 mg/dl 5-8 POCT U LEUK EST (test code = 3263) Negative Negative - Negative POCT U NIT (test code = 3262) Negative Negative - Negati ve POCT U PROT (test code = 3259) Trace Negative - Negat estelle POCT U GLU (test code = 3256) Normal Negative - Negati ve POCT U KETONE (test code = 3258) Negative Negative - Neg ative POCT U BLD (test code = 3257) Negative Negative - Negati ve [facility] TexasGLYCOSYLATED HEMOGLOBIN (A1C)2022-05-25 22:36:08* Test Item Value Reference Range Interpretation Comme nts HGB A1C (test code = 4548-4) 5.8 % 4.0-5.7 H MELANIE (test code = MELANIE) Reference RangesNormal: <5.7%Prediabetes: 5.7 - 6.4%Diabetes: > 6.5% Lab Interpretation (test code = 75802-4) Abnormal [facility] TexasCOMP. METABOLIC PANEL (27736)2022-05-25 20:33:21* Test Item Value Reference Range Interpretation Comme nts NA (test code = 2656548908) 143 mmol/L 135-145 K (test code = 0004709033) 4.8 mmol/L 3.5-5.0 CL (test code = 6742200076) 107 mmol/L 98-108 CO2 TOTAL (test code = 5560966670) 24 mmol/L 23-31 AGAP (test code = 4173059241) 2-16 BUN (test code = 9281984977) 30 mg/dL 7-23 H GLUCOSE (test code = 1491703780) 113 mg/dL 70-110 H CREATININE (test code = 3947557042) 1.05 mg/dL 0.50-1.04 H TOTAL BILI (test code = 9562507278) 1.0 mg/dL 0.1-1.1 CALCIUM (test code = 4442488658) 9.4 mg/dL 8.6-10.6 T PROTEIN (test code = 0655333287) 7.8 g/dL 6.3-8.2 ALBUMIN (test code = 7854820344) 4.4 g/dL 3.5-5.0 ALK PHOS (test code = 1580381310) 145 U/L 34-122 H ALTv (test code = 1742-6) 39 U/L 5-35 H AST(SGOT) (test code = 5200352824) 44 U/L 13-40 H eGFR (test code = 4473884383) mL/min/1.73m2 MELANIE (test code = MELANIE) Association of [...] or abnormalities in imaging tests). Lab Interpretation (test code = 23931-2) Abnormal [facility] TexasSCR MAMM BILATERAL BOUCHRA CAD [id number] 10:39:44- SCR MAMM BILATERAL BOUCHRA CAD DIGITALBILATERAL DIGITAL SCREENING MAMMOGRAM 3D/2D WITH CAD: 05/26/2018CLINICAL: Asymptomatic. Digital breast tomosynthesis was performed in addition to routine CC and MLO views. Current mammographic images were evaluated by either a [employer] M-Vu or a [employer] Image[employer] CAD (computer aided detection system). No prior outside exams are currently available for comparison. There are scattered fibroglandular tissues in both breasts. There is minimal vascular calcification in the right breast. There also is a benign calcification in the left breast. Additionally, there are small benign-appearing masses, possible intramammary nodes, in the posterior inferomedial leftbreast. No suspicious mass, architectural distortion, malignant type [...] mammograms for comparison.Ravinder Beatty M.D. rb/:06/07/2018 10:39:44 ImagingTechnologist: Minerva Long MM, [facility] Mammographyletter sent: BIRADS 1-2 Normal Mammogram BI-RADS: 2 Benign Consult Notes Date/Time Note Provider Source 2023-10-19 16:09:08 Associated Order(s): CONSULT ENGINE TESTING SUPERVISOR-ADULT Home health referral efaxed [facility] home health P: [phone]. Awaiting auth. Shiv Johnston RN, BSN [facility] Petroleum Supply Specialist O [phone] F [phone] T [facility] 2023-10-19 14:55:09 Associated Order(s): CONSULT ENGINE TESTING SUPERVISOR-ADULT Patient scheduled for [facility] Outpatient Rehab at Oct 9:30 AM. Shiv Johnston RN, CARLAN [facility] Petroleum Supply Specialist O [phone] F [phone] T [facility] 2023-10-19 11:48:31 Associated Order(s): CONSULT ADULT PHYSICAL THERAPY Please PT evaluation on October 18, 2023. Thank you. Leigh Limon,PT [place] License: [id number] Leigh Limon PT [facility] 2023-10-18 15:49:00 Associated Order(s): CONSULT ENGINE TESTING SUPERVISOR-ADULT Patient provided with 3in1 bedside commode. Patient stated she has a walker at home and plans to do outpatient physical therapy at [facility]. Shiv Johnston RN, BSN [facility] Petroleum Supply Specialist O [phone] F [phone] T [facility] 2023-10-18 12:52:00 Associated Order(s): CONSULT ADULT PHYSICAL THERAPY; CONSULT ADULT PHYSICAL THERAPY 10/18/2023 Patient agreeable to working with physical therapy. Patient met semi reclined in bed. Recommend nursing staff utilize gait belt, RW, and Mod A to safely assist patient with mobility out of the bed or chair. PHYSICAL THERAPY EVALUATION Consult received, chart reviewed and evaluation complete this date. Patient is referred to PT for evaluation and treatment. Patient is a 68 year old female who presents to hospital for Preop testing [Z01.818] Primary osteoarthritis of left knee [M17.12]. Discharge Recommendations: Therapy Needs and Potential: Patient would benefit from continued physical therapy services to address: decline in bed mobility decline in transfers decline in gait and/or balance decreased strength decreased range of motion decreased endurance Challenges to Home Transition: increased risk of falls Severe pain Equipment recommendations: 3 in 1 commode Current Functional Status and/or Treatment: AM-PAC 6 Clicks (Raw Score 0=Dependent, 24=Independent; Low function Raw Score 0= Dependent, 32=Independent): Bed Mobility: Rolling: Moderate Assistance Supine to sit, sit to supine, Moderate Assistance Cued patient proper method to perform movements to safely move in bed and to edge of bed. Dizziness No Transfers: Sit to stand: Minimal Assistance using rolling Walker. Stand to sit: Minimal Assistance using rolling Walker. Stand pivot transfer: Minimal Assistance Static/dynamic standing balance: Fair Verbal cueing provided for correct hand placement and correct use of AD Facilitated transition to sit up and standing with cues for forward trunk lean, and to bear weight through BLEs Dizziness No Ambulation: Assisted patient with ambulation as follows: 20 feet using rolling Walker. and Minimal Assistance. Facilitated proper posture with gait, pt performing gait with flexed trunk over walker and PT educated patient importance of safety with mobility and to stand upright in order to perform gait with decreased difficulty. Dizziness No Therapeutic exercise: instructed patient in the following: ankle pumps, quad sets, glut sets, hamstring sets, heel slides, straight leg raises, short arc quads, long arc quads, seated marching Instructed patient to perform at least 10 reps, 1x/day. Functional Outcome Measures: (Values within the past 12 hours) After session, patient semi reclined in bed. Call button provided. RN and daughter present in room. PLAN OF CARE: While in the hospital, PT will follow patient at least 5 times per week,once or twice a day, per patient's tolerance and needs. See below for complete details. Admit Date: 10/18/2023 Hospital Diagnosis:Preop testing [Z01.818] Primary osteoarthritis of left knee [M17.12] PT Diagnosis: Difficulty walking, Weakness, and Pain Weight Bearing Precaution: WBAT, Left, LE General Precautions: Fall,Purewick catheter, IV LUE Bracing/Cast present or required:N/A PMH: Past Medical History: Diagnosis Date Abnormal EKG 02/21/2020 Acid reflux Arthritis Fatty liver 02/27/2019 Hypercholesterolemia Hypertension 2000 Microscopic hematuria 02/21/2021 Osteopenia 02/28/2021 Prediabetes 03/01/2019 Severe obstructive sleep apnea 03/24/2021 Urinary incontinence, unspecified type Vitamin D deficiency 02/25/2020 PSH: Past Surgical History: Procedure Laterality Date ARTHROSCOPIC SHOULDER ROTATOR CUFF REPAIR Right 2010 SECTION 1984 CHOLECYSTECTOMY 2008 COLONOSCOPY 2014 COLONOSCOPY N/A 03/12/2021 Surgeon: Dominic Starks MD; Location: [facility] OR [facility] ESOPHAGOGASTRODUODENOSCOPY N/A 10/07/2016 Surgeon: Dominic Starks MD; Location: [facility] OR [facility] HERNIA REPAIR LAPAROSCOPIC TUBAL LIGATION 1983 [place] EGD TRANSORAL BIOPSY SINGLE/MULTIPLE 10/07/2016 Prior Living Situation: lives with their family and in a house, Stairs with bilateral hand rails, rails are far apart, pt with 2 steps to enter home. DME: No device Prior level of Mobility: community ambulation, house hold ambulation Suspected ischemic or hemorraghic stroke:No Subjective: Pt reports she will try to move but in a lot of pain. Patient/Family Goals: Get better, decrease pain Patient/Family verbalizes understanding of condition: Yes PAIN: -Pain Location: left leg -Pain rating before treatment: 3, After treatment: 3, pt expressed severe pain with movement but would give the number of pain as a 3 COMMUNICATION Primary Language: Lebanese Able to Verbalize needs: Yes Vision:good; no issues reported Hearing:good; no issues reported ORIENTATION/COGNITION: Oriented to: person, place, date/time, and situation Awake: Yes Alert: Yes Dizzy: No Follows Commands: Yes 1-Step Yes Multi-Step Yes Inconsistent: No NEUROLOGICAL Light Touch: deficit: due to recent surgical intervention LLE BALANCE: Sitting: Static: Good Dynamic: Good Standing: Static: Fair Dynamic: Poor+ RANGE OF MOTION: deficit: due to recent surgical intervention of LLE. STRENGTH: 3+/5 (F+), LLE ENDURANCE: Good, Face mask, Room air. Pt performed mobility with therapist at room air, however, when returned to bed, pt placed with mask on due to decreasing sats, pt with apnea and recovering slowly. SKIN INTEGRITY: not intact, due to recent surgical incision PROBLEM LIST: Decline in bed mobility, Decline in gait, Decline in transfers, Decreased strength, Decreased endurance, ROM deficits, Weight bearing restrictions, and Pain ASSESSMENT: Patient is a 68 year old female seen secondary to the above listed diagnosis. Patient would benefit from continued PT to address the above listed deficits to maximize independence and safety with functional mobility. Rehabilitation Potential: good Goals: The following goals are to maximize independence and safety with functional mobility to eventually return to prior living situation and prior functional status. Upon discharge, patient and/or family will demonstrate the followin. Rolling: Independent Supine-sit: Supervision Sit to supine: Supervision 2. Sit to stand: Supervision using rolling Walker. Stand to sit: Supervision using rolling Walker. 3. Supervision with ambulation, Feet: 150 using least assistive device. Treatment Plan: Gait training, Therapeutic exercise, Transfer training, Balance training, Bed mobility training, Equipment needs assessment, Safety education, patient/caregiver education, and Pain management PATIENT EDUCATION: Patient and Family member provided with preferred teaching of verbal information, written information, and demonstration on role of PT, plan of care, PT POC, HEP, and goals. Shows readiness to learn. Verbal instruction, Written material, and Demonstration teaching provided. Individual is able to read and verbalizes understanding of teaching provided and accurately returns demonstration of skill. Total Time Tx Codes in Minutes: 20 min Total Treatment Time in Minutes: 35 min Hui Macario PT, MPT Software Security Architect [email or web address] License- [id number] [facility] [phone] (phone) [phone] (fax) Hui Nogueira PT [facility] History and Physical Notes Date/Time Note Provider Source 2023-10-18 23:07:09 [facility] Hospitalist Admission H&P Date of Service: 10/18/2023 CHIEF COMPLAINT: Scheduled for routine total left knee arthroplasty HISTORY OF PRESENT ILLNESS Guillermo Soto is a 68 year old female who presents with total left knee arthroplasty. Patient doing well postoperatively. Patient with a history of dyslipidemia and hypertension. Patient with no complaints postoperatively. Pain is well-controlled. Patient anxious to work with physical therapy. Otherwise, patient denies any new complaints. Patient is admitted for extended stay postoperatively. PAST MEDICAL HISTORY Past Medical History: Diagnosis Date Abnormal EKG 02/21/2020 Acid reflux Arthritis Fatty liver 02/27/2019 Hypercholesterolemia Hypertension 2000 Microscopic hematuria 02/21/2021 Osteopenia 02/28/2021 Prediabetes 03/01/2019 Severe obstructive sleep apnea 03/24/2021 Urinary incontinence, unspecified type Vitamin D deficiency 02/25/2020 PAST SURGICAL HISTORY Past Surgical History: Procedure Laterality Date ARTHROSCOPIC SHOULDER ROTATOR CUFF REPAIR Right 2010 SECTION 1984 CHOLECYSTECTOMY 2007 COLONOSCOPY 2014 COLONOSCOPY N/A 03/12/2021 Surgeon: Dominic Starks MD; Location: [facility] ESOPHAGOGASTRODUODENOSCOPY N/A 10/07/2016 Surgeon: Dominic Starks MD; Location: [facility] OR [facility] HERNIA REPAIR LAPAROSCOPIC TUBAL LIGATION 1983 [place] EGD TRANSORAL BIOPSY SINGLE/MULTIPLE 10/07/2016 ALLERGIES Allergies Allergen Reactions Morphine Other - See comments Pt states that Morphine makes pt's pain worse. Tramadol Swelling MEDICATIONS Current home medication list reviewed: Current Discharge Medication List START taking these medications Details aspirin 325 mg tablet Take 1 tablet by mouth in the morning and 1 tablet in the evening. Take with meals. Do all this for 28 days. Qty: 56 tablet, Refills: 0 Associated Diagnoses: Primary osteoarthritis of left knee docusate 100 mg capsule Take 1 capsule by mouth in the morning and 1 capsule in the evening. Qty: 60 capsule, Refills: 0 Associated Diagnoses: Primary osteoarthritis of left knee HYDROcodone-acetaminophen 5-325 mg tablet Take 1 tablet by mouth every 6 (six) hours as needed for Pain (scale 4-6) or Pain (scale 7-10) for up to 7 days. Indications: acute pain Qty: 28 tablet, Refills: 0 Associated Diagnoses: Primary osteoarthritis of left knee CONTINUE these medications which have NOT CHANGED Details calcium carbonate (CALCIUM 600) 600 mg calcium (1,500 mg) tablet Take 1 tablet by mouth in the morning. NIFEDIPINE XL 30 mg 24 hr tablet TAKE 1 TABLET BY MOUTH IN THE MORNING AND 1 TABLET BY MOUTH IN THE EVENING Qty: 180 tablet, Refills: 3 Comments: Please send a replace/new response with 100-Day Supply if appropriate to maximize member benefit. Requesting 1 year supply. Associated Diagnoses: Essential (primary) hypertension; Hypertensive heart disease without heart failure carvediloL 3.125 mg tablet TAKE 1 TABLET BY MOUTH IN THE MORNING AND 1 TABLET BY MOUTH IN THE EVENING WITH MEALS Qty: 60 tablet, Refills: 3 Comments: Requesting 1 year supply Associated Diagnoses: Essential hypertension evolocumab (REPATHA SURECLICK) 140 mg/mL subcutaneous injection INJECT 140MG SUBCUTANEOUSLY EVERY 2 WEEKS Qty: 6 mL, Refills: 3 Comments: Requesting 1 year supply Associated Diagnoses: Essential hypertension; Hypertensive heart disease without heart failure; Dyslipidemia; Abnormal ECG; Family history of ASCVD (arteriosclerotic cardiovascular disease); CHEN (dyspnea on exertion); Ascending aorta dilatation; LVH (left ventricular hypertrophy); Class 3 severe obesity with body mass index (BMI) of 50.0 to 59.9 in adult, unspecified obesity type, unspecified whether serious comorbidity present atorvastatin 40 mg tablet Take 1 tablet by mouth at bedtime. Qty: 90 tablet, Refills: 2 Associated Diagnoses: Essential hypertension, benign; Essential hypertension; Hypertensive heart disease without heart failure; Dyslipidemia; Abnormal ECG; Family history of ASCVD (arteriosclerotic cardiovascular disease); CHEN (dyspnea on exertion); Ascending aorta dilatation; Prediabetes; LVH (left ventricular hypertrophy); Class 3 severe obesity with body mass index (BMI) of 50.0 to 59.9 in adult, unspecified obesity type, unspecified whether serious comorbidity present losartan 50 mg tablet Take 1 tablet by mouth in the morning and 1 tablet in the evening. Qty: 180 tablet, Refills: 1 Associated Diagnoses: Essential hypertension, benign metFORMIN 500 mg tablet TAKE 1 TABLET BY MOUTH IN THE MORNING AND IN THE EVENING WITH MEALS Qty: 180 tablet, Refills: 3 Associated Diagnoses: Prediabetes Cholecalciferol, Vitamin D3, (D3-2000) 50 mcg (2,000 unit) capsule Take 1 capsule by mouth daily. Take with food. Associated Diagnoses: Vitamin D deficiency mv-mn/iron/folic acid/herb 190 (VITAMIN D3 COMPLETE ORAL) Take 2,000 mg by mouth daily. Diaper,Brief, Adult,Disposable (WINGS XXL ADULT BRIEF) Misc Use as directed; ICD-10 DIAGNOSIS CODE R32 Qty: 100 Each, Refills: prn Associated Diagnoses: Urinary incontinence, unspecified type furosemide 40 mg tablet Take 1 tablet by mouth as needed for Other (based on leg swelling). Qty: 270 tablet, Refills: 0 Associated Diagnoses: Pain and swelling of lower extremity, unspecified laterality Incontinence Pad, Liner, Disp Pads Use as directed; ICD-10 DIAGNOSIS CODE R32 Qty: 100 Each, Refills: prn Associated Diagnoses: Urinary incontinence, unspecified type STOP taking these medications cephALEXin 500 mg capsule Comments: Reason for Stopping: trospium 20 mg tablet Comments: Reason for Stopping: FAMILY HISTORY Family History Problem Relation Age of Onset Heart Mother Arthritis Father Cancer Sister Lymphoma No Significant Medical Problems Sister No Significant Medical Problems Sister [place] (myocardial infarction) Brother in 40's No Significant Medical Problems Brother No Significant Medical Problems Brother No Significant Medical Problems Brother No Significant Medical Problems Daughter No Significant Medical Problems Son No Significant Medical Problems Son SOCIAL HISTORY Social History Socioeconomic History Marital status: Number of children: 3 Highest education level: 12th grade Tobacco Use Smoking status: Never Smokeless tobacco: Never Vaping Use Vaping status: Never Used Substance and Sexual Activity Alcohol use: No Drug use: No Sexual activity: Not Currently Comment: Last intercourse: 2004 Social History Narrative Patient lives with daughter. Has disability due to shoulder injury. Used to work in a day care. Pets: none. Patient feels safe at home. Late breakfast/early lunch: toast, oat meal, or leftovers. Dinner: cooks corn, baked chicken, vegetables, salads, no tortillas. Has 1 can of coke a day. Social Determinants of Health Financial Resource Strain: Low Risk (07/07/2023) Overall Financial Resource Strain (CARDIA) Difficulty of Paying Living Expenses: Not hard at all Food Insecurity: No Food Insecurity (07/07/2023) Hunger Vital Sign Worried About Running Out of Food in the Last Year: Never true Ran Out of Food in the Last Year: Never true Transportation Needs: No Transportation Needs (07/07/2023) PRAPARE - Transportation Lack of Transportation (Medical): No Lack of Transportation (Non-Medical): No Physical Activity: Inactive (07/07/2023) Exercise Vital Sign Days of Exercise per Week: 0 days Minutes of Exercise per Session: 0 min Housing Stability: Low Risk (07/07/2023) Housing Stability Vital Sign Unable to Pay for Housing in the Last Year: No Number of Places Lived in the Last Year: 1 Unstable Housing in the Last Year: No REVIEW OF SYSTEMS 10 systems negative except per HPI PHYSICAL EXAMINATION BP 125/65 | Pulse 67 | Temp 36.5 ?C (97.7 ?F) | Resp 21 | Ht 1.499 m (4' 11") | Wt 118.4 kg (261 lb) | SpO2 96% | BMI 52.72 kg/m? General: No acute distress HEENT: Normal oral mucosa, anicteric sclerae, NCAT Cardiovascular: RRR Lungs: Symmetric expansion, clear bilaterally Abdomen: Soft, NTND Musculoskeletal: Left knee with appropriate pain on minimal range of motion appropriately; Genitourinary: Deferred Skin: No rash, no skin lesions Extremities: No clubbing, no cyanosis, no lower extremity edema Neuro: AAOx3, no focal deficits Psych: Normal affect LABS - reviewed pertinent labs as below: CBC BMP PT/INR WBC (10*3/?L) Date Value 10/13/2023 7.25 NA (mmol/L) Date Value 10/13/2023 143 No results found for: "PT" RBC (10*6/?L) Date Value 10/13/2023 4.96 K (mmol/L) Date Value 10/13/2023 4.2 No results found for: "PTINR" PLT (10*3/?L) Date Value 10/13/2023 204 CALCIUM (mg/dL) Date Value 10/13/2023 9.7 HGB (g/dL) Date Value 10/13/2023 15.3 (H) CL (mmol/L) Date Value 10/13/2023 105 aPTT HCT (%) Date Value 10/13/2023 45.6 (H) BUN (mg/dL) Date Value 10/13/2023 28 (H) No results found for: "APTTPAT" CREATININE (mg/dL) Date Value 10/13/2023 1.13 (H) IMAGING - reviewed, pertinent results as below: No results found for this visit on 10/18/23. ASSESSMENT: 1. Status post left total knee arthroplasty 2. History of hypertension 3. History of dyslipidemia 4. History of type 2 diabetes 5. History of GERD 6. Fatty liver disease 7. Obstructive sleep apnea PLAN: 1. Status post left total knee arthroplasty; continue with pain control and DVT prophylaxis. Physical therapy evaluation pending. Outpatient orthopedic follow-up. Patient will also need outpatient physical therapy. 2. History of hypertension and dyslipidemia with type 2 diabetes; supportive care 3. History of GERD; PPI as needed 4. History of VASQUEZ; outpatient lab follow-up 5. Obstructive sleep apnea; CPAP at night as needed DVT prophylaxis: enoxaparin Stress ulcer prophylaxis: pantoprazole Code status: FULL Advanced Care Planning (Z71.89) Above assessment and plan discussed at length with patient, patient expressed full understanding. Questions and concerned addressed. Surrogate decision maker: NO Level of care expected after discharge: HOME Time spent: 3 minutes discussing the advanced care plan Smoking Cessation: (Z71.6) Tobacco user?: NO Patient will require observation [place] INTERACTIVE PROJECT MANAGER was verified during stay Nidia Haro MD IM-INTERNAL MEDICINE STAFF [facility] - [facility] Notes Date/Time Note Provider Source 2024-01-04 08:25:18 Images from the original note were not included. Notes: 03/12/23 [facility] [address] Recent Visits Date Type Provider Dept 11/22/23 Office Visit Cinthya Will MD [facility] 10/29/23 Office Visit Yesi Caputo PA [facility] 09/21/23 Office Visit Jing Conn FNP [facility] 07/07/23 Office Visit Virginia Peacock MD [facility] 03/12/23 Office Visit Cinthya Will MD [facility] 01/08/23 Office Visit Cinthya Will MD [facility] 12/25/22 Office Visit Cinthya Will MD [facility] 12/03/22 Office Visit Cinthya Will MD [facility] 09/08/22 Office Visit Cinthya Will MD [facility] Showing recent visits within past 540 days with a meds authorizing provider and meeting all other requirements Future Appointments Date Type Provider Dept 05/23/24 Appointment Cinthya Will MD [facility] Showing future appointments within next 150 days with a meds authorizing provider and meeting all other requirements Name from pharmacy: metFORMIN HCl 500 MG Oral Tablet Will file in chart as: METFORMIN 500 mg tablet Sig: TAKE 1 TABLET BY MOUTH IN THE MORNING AND IN THE EVENING WITH MEALS Original sig: TAKE 1 TABLET BY MOUTH IN THE MORNING AND IN THE EVENING WITH MEALS Disp: 180 tablet Refills: 3 Start: 01/03/2024 Class: eRX For: Prediabetes To pharmacy: Please send a replace/new response with 100-Day Supply if appropriate to maximize member benefit. Requesting 1 year supply. Last ordered: 9 months ago (03/12/2023) by Cinthya Will MD Last refill: 11/09/2023 Rx #: [id number] Endocrinology: Diabetes - Biguanides Ahdiyx7801/03/2024 09:20 PM Protocol Details Valid encounter within last 12 months Cr is between 0 and 1.3 and within 360 days HBA1C within 180 days To be filled at: [address] [facility] 2023-12-09 10:11:17 Referral pending [facility] 2023-12-09 09:56:[address] Nice, Op[facility]ist in [place] is requesting a referral for pt to be seen on December 29, 2009 for a routine diabetic eye exam. NPI# [id number] FAX [phone] Diagnosis coding: I87.8 / H52.03 / H35.30 / H26.9 Lilian Flores [facility] 2023-12-08 13:45:00 Images from the original note were not included. Patient has been identified by and name and was provided with cup, antiseptic towelette, and clean catch instructions. 1 urine specimen(s) sent. Unpreserved 1 Urine Culture 1 Aptima tube Other urine [facility] 2023-11-24 08:26:25 Images from the original note were not included. Requested Prescriptions Pending Prescriptions Disp Refills ATORVASTATIN 40 mg tablet [Pharmacy Med Name: Atorvastatin Calcium 40 MG Oral Tablet] 90 tablet 3 Sig: TAKE 1 TABLET BY MOUTH AT BEDTIME Patient compliant per [facility] Cardiology Refill Guidelines. Rx sent to: [address] Name from pharmacy: Atorvastatin Calcium 40 MG Oral Tablet Will file in chart as: ATORVASTATIN 40 mg tablet Sig: Take 1 tablet by mouth at bedtime. Original sig: TAKE 1 TABLET BY MOUTH AT BEDTIME Disp: 90 tablet Refills: 3 Start: 11/23/2023 Class: eRX For: Essential hypertension, benign; Essential hypertension; Hypertensive heart disease without heart failure; Dyslipidemia; Abnormal ECG; Family history of ASCVD (arteriosclerotic cardiovascular disease); CHEN (dyspnea on exertion); Ascending aorta dilatation; Prediabetes; LVH (left ventricular hypertrophy); Class 3 severe obesity with body mass index (BMI) of 50.0 to 59.9 in adult, unspecified obesity type, unspecified whether serious comorbidity present To pharmacy: Please send a replace/new response with 100-Day Supply if appropriate to maximize member benefit. Requesting 1 year supply. Last ordered: 7 months ago (04/23/2023) by Desiree Boudreaux MD Last refill: 09/29/2023 Rx #: [id number] Cardiovascular: Antilipid - HMG-CoA Reductase Inhibitors Etejiy7811/23/2023 09:08 PM Protocol Details Valid encounter within last 12 months Total Cholesterol within 360 days LDL within 360 days HDL within 360 days Triglycerides within 360 days AST in normal range and within 360 days ALT in normal range and within 360 days To be filled at: [address] Vanessa Bucio MA [facility] 2023-11-23 13:28:22 Addended by: MIRIAM LÓPEZ on: 11/23/2023 01:28 PM Modules accepted: Orders [facility] 2023-11-23 13:28:05 Referral placed. Miriam López LVN 11/23/2023 1:28 PM [facility] 2023-11-23 12:14:05 I approve. [facility] 2023-11-23 10:24:30 Do you approve referral [facility] 2023-11-23 10:17:06 Pt is needing a referral for her cardiology visit. Please advise. Thank you. Umesh Gilliam [facility] 2023-11-22 10:00:00 Images from the original note were not included. Venipuncture collection performed by clean technique on the right anticubitus. Total of 1 attempts were made. Slight pressure and a bandage/dressing were applied to the site(s). The patient experienced no complications. The following specimens were processed according to instructions and sent to [facility] laboratories per lab order on 11/22/2023 : LT BLUE SST 3 RED LAV 2 PPT DK GREEN (LiHep) DK GREEN (SodH) MEZA DK BLUE (K2) DK BLUE (S) ACD Blood Culture NIPT/NTD Patient has been identified by and name and was provided with cup, antiseptic towelette, and clean catch instructions. 3 urine specimen(s) sent. Unpreserved 3 Urine Culture Aptima tube Other urine [facility] 2023-11-22 09:20:00 Addended by: CINTHYA WILL on: 11/24/2023 07:59 AM Modules accepted: Orders T [facility] 2023-11-02 11:53:12 Order faxed to [facility]. Esperanza Pizano 11/02/2023 11:53 AM T [facility] 2023-11-02 10:53:41 Guillermo Soto is a 68 year old female is requesting orders be re sent to [facility]. Heather Albrecht [facility] 2023-11-02 09:04:44 Faxing PT order to [facility] for patient today. Esperanza Pizano 11/02/2023 9:06 AM [facility] 2023-11-01 15:28:10 Patient wants PT referral sent to [facility] in [place] Tali Vega [facility] 2023-10-29 13:50:17 Please review, complete, and sign if appropriate. [facility] 2023-10-29 11:24:39 Needing a generic referral for Orthopedic. Patient has an appointment on 11/01/2023. Nilson Olivares [facility] 2023-10-22 11:21:52 Pt daughter is requesting a call back from a nurse regarding pain medication that was prescribe after surgery. DOS 10/18/2023 Filomena Lo [facility] 2023-10-21 10:50:36 Patient scheduled Jolanta García [facility] 2023-10-20 12:26:55 Pt's daughter requesting call back from clinic, pt needs bandage removal and post op appt, no avail until November 21. Please F/u Wilfredo Bucio [facility] 2023-10-19 17:58:18 Problem: Pain Goal: Control of pain at or below patient's documented comfort goal 10/19/20231757 by Margi Nash RN Outcome: Adequate for discharge 10/19/20231756 by Margi Nash RN Outcome: Progressing as expected 10/19/20238 by Margi Nash RN Outcome: Progressing as expected Goal: Reduction in pain sensation 10/19/20231757 by Margi Nash RN Outcome: Adequate for discharge 10/19/2023 175 by Margi Nash RN Outcome: Progressing as expected 10/19/20231117 by Margi Nash RN Outcome: Progressing as expected Problem: Falls, Risk of Goal: Absence of falls 10/19/20231757 by Margi Nash, RN Outcome: Adequate for discharge 10/19/2023 175 by Margi Nash RN Outcome: Progressing as expected 10/19/20231117 by Margi Nash RN Outcome: Progressing as expected Problem: Mobility - Impaired Goal: Able to achieve maximum mobility level 10/19/20231757 by Margi Nash RN Outcome: Adequate for discharge 10/19/20231756 by Margi Nash RN Outcome: Progressing as expected 10/19/20231117 by Margi Nash RN Outcome: Progressing as expected Problem: Skin integrity Impaired (Risk or Actual) Goal: Wound healing 10/19/20231757 by Margi Nash RN Outcome: Adequate for discharge 10/19/20231756 by Margi Nash RN Outcome: Progressing as expected 10/19/20231117 by Margi Nash RN Outcome: Progressing as expected Goal: Prevention of new skin breakdown 10/19/20231757 by Margi Nash RN Outcome: Adequate for discharge 10/19/20231756 by Margi Nash RN Outcome: Progressing as expected 10/19/20231117 by Margi Nash RN Outcome: Progressing as expected Problem: Respiratory Function - Impaired Goal: Able to cough effectively 10/19/20231757 by Margi Nash RN Outcome: Adequate for discharge 10/19/20231756 by Margi Nash RN Outcome: Progressing as expected 10/19/20231117 by Margi Nash RN Outcome: Progressing as expected Goal: Adequate oxygenation 10/19/20231757 by Margi Nash RN Outcome: Adequate for discharge 10/19/20231756 by Margi Nash RN Outcome: Progressing as expected 10/19/20231117 by Margi Nash RN Outcome: Progressing as expected Goal: Adequate work of breathing 10/19/20231757 by Margi Nash RN Outcome: Adequate for discharge 10/19/2023 175 by Margi Nash RN Outcome: Progressing as expected 10/19/20231117 by Margi Nash RN Outcome: Progressing as expected Goal: Patent airway 10/19/2023 175 by Margi Nsah RN Outcome: Adequate for discharge 10/19/2023 175 by Margi Nash RN Outcome: Progressing as expected 10/19/20231117 by Margi Nash RN Outcome: Progressing as expected Problem: Discharge Planning Goal: Adequate for discharge 10/19/20231757 by Margi Nash RN Outcome: Adequate for discharge 10/19/20231756 by Magri Nash RN Outcome: Progressing as expected 10/19/20231117 by Margi Nash RN Outcome: Progressing as expected Goal: Effective communication 10/19/20231757 by Margi Nash RN Outcome: Adequate for discharge 10/19/20231756 by Margi Nash RN Outcome: Progressing as expected 10/19/20231117 by Margi Nash RN Outcome: Progressing as expected Margi Nash RN [facility] 2023-10-19 11:18:38 Problem: Pain Goal: Control of pain at or below patient's documented comfort goal Outcome: Progressing as expected Goal: Reduction in pain sensation Outcome: Progressing as expected Problem: Falls, Risk of Goal: Absence of falls Outcome: Progressing as expected Problem: Mobility - Impaired Goal: Able to achieve maximum mobility level Outcome: Progressing as expected Problem: Skin integrity Impaired (Risk or Actual) Goal: Wound healing Outcome: Progressing as expected Goal: Prevention of new skin breakdown Outcome: Progressing as expected Problem: Respiratory Function - Impaired Goal: Able to cough effectively Outcome: Progressing as expected Goal: Adequate oxygenation Outcome: Progressing as expected Goal: Adequate work of breathing Outcome: Progressing as expected Goal: Patent airway Outcome: Progressing as expected Problem: Discharge Planning Goal: Adequate for discharge Outcome: Progressing as expected Goal: Effective communication Outcome: Progressing as expected [facility] 2023-10-19 05:02:48 Problem: Pain Goal: Control of pain at or below patient's documented comfort goal Outcome: Progressing as expected Goal: Reduction in pain sensation Outcome: Progressing as expected Problem: Falls, Risk of Goal: Absence of falls Outcome: Progressing as expected Problem: Mobility - Impaired Goal: Able to achieve maximum mobility level Outcome: Progressing as expected Problem: Skin integrity Impaired (Risk or Actual) Goal: Wound healing Outcome: Progressing as expected Goal: Prevention of new skin breakdown Outcome: Progressing as expected Problem: Respiratory Function - Impaired Goal: Able to cough effectively Outcome: Progressing as expected Goal: Adequate oxygenation Outcome: Progressing as expected Goal: Adequate work of breathing Outcome: Progressing as expected Goal: Patent airway Outcome: Progressing as expected Problem: Discharge Planning Goal: Adequate for discharge Outcome: Progressing as expected Goal: Effective communication Outcome: Progressing as expected [facility] Irish Kang RN [facility] 2023-10-18 17:37:55 Problem: Pain Goal: Control of pain at or below patient's documented comfort goal Outcome: Progressing as expected Goal: Reduction in pain sensation Outcome: Progressing as expected Problem: Falls, Risk of Goal: Absence of falls Outcome: Progressing as expected Problem: Mobility - Impaired Goal: Able to achieve maximum mobility level Outcome: Progressing as expected Problem: Skin integrity Impaired (Risk or Actual) Goal: Wound healing Outcome: Progressing as expected Goal: Prevention of new skin breakdown Outcome: Progressing as expected Problem: Respiratory Function - Impaired Goal: Able to cough effectively Outcome: Progressing as expected Goal: Adequate oxygenation Outcome: Progressing as expected Goal: Adequate work of breathing Outcome: Progressing as expected Goal: Patent airway Outcome: Progressing as expected Problem: Discharge Planning Goal: Adequate for discharge Outcome: Progressing as expected Goal: Effective communication Outcome: Progressing as expected [facility] 2023-10-18 08:46:00 BRIEF OPERATIVE NOTE Date of Surgery: 10/18/2023 Surgeons and Role: * Krystina Tejeda MD - Primary * Javi Brandt MD - Resident - Assisting Pre-Op Diagnosis: Preop testing [Z01.818] Primary osteoarthritis of left knee [M17.12] Post-Op Diagnosis Codes: * Preop testing [Z01.818] * Primary osteoarthritis of left knee [M17.12] Procedures: Procedure(s) (LRB): TOTAL KNEE ARTHROPLASTY (Left) CPT: 07567, Any Complications Encounters: 0 Estimated Blood Loss: min Specimens Removed: * No specimens in log * Implant Name Type Inv. Item Serial No. Truss Maker Lot No. LRB No. Used Action FEMORAL CEMENTLESS 55MM BIOMET #[id number] - SN/A Joint Prosthesis FEMORAL CEMENTLESS 55MM BIOMET #[id number] N/A HARMONY BIOMET [id number] Left 1 Implanted STEM TIBIA BASE PRIMARY FINNED 40MM BIOMET #[id number] - SN/A STEM TIBIA BASE PRIMARY FINNED 40MM BIOMET #[id number] N/A HARMONY BIOMET [id number] Left 1 Implanted SCREW BONE TI DOME 30MM SLF TAP LO PRFL 6.5MM HIP ACTB CNCLS #[id number] - SN/A SCREW SCREW BONE TI DOME 30MM SLF TAP LO PRFL 6.5MM HIP ACTB CNCLS #325571 N/A HARMONY BIOMET [id number] Left 1 Implanted SCREW BONE TI DOME 30MM SLF TAP LO PRFL 6.5MM HIP ACTB CNCLS #[id number] - SN/A SCREW SCREW BONE TI DOME 30MM SLF TAP LO PRFL 6.5MM HIP ACTB CNCLS #859391 N/A HARMONY BIOMET [id number] Left 1 Implanted SCREW BONE TI DOME 30MM SLF TAP LO PRFL 6.5MM HIP ACTB CNCLS #[id number] - SN/A SCREW SCREW BONE TI DOME 30MM SLF TAP LO PRFL 6.5MM HIP ACTB CNCLS #297047 N/A HARMONY BIOMET [id number] Left 1 Implanted SCREW BONE TI DOME 30MM SLF TAP LO PRFL 6.5MM HIP ACTB CNCLS #[id number] - SN/A SCREW SCREW BONE TI DOME 30MM SLF TAP LO PRFL 6.5MM HIP ACTB CNCLS #511793 N/A HARMONY BIOMET [id number] Left 1 Implanted COMPONENT TIBIAL TRAY CEMENTLESS 67MML BIOMET #[id number] - SN/A Joint Prosthesis COMPONENT TIBIAL TRAY CEMENTLESS 67MML BIOMET #[id number] N/A HAR[employer]Y BI[employer]ET [id number] Left 1 Implanted VANGUARD KNEE SYSTEM CR TIBIAL BEARING N/A HARMONY BIOMET [id number] Left 1 Implanted Patient's Condition: good Findings: above Any other important information: none Please see dictated operative report for additional detail. [facility] 2023-10-18 00:06:00 FACULTY SURGEON: Krystina Tejeda MD RESIDENT SURGEON: USER EXPERIENCE MANAGER OR TEACHING RESIDENT: Javi Brandt MD PREOPERATIVE DIAGNOSIS: Left knee degenerative joint disease. POSTOPERATIVE DIAGNOSIS: Left knee degenerative joint disease. OPERATION: Left total knee replacement. PROCEDURE: Complications: None. Disposition: Recovery room stable. The patient taken to operative suite, placed in supine position. Induced under anesthesia. The left knee was prepped and draped in the usual sterile fashion. Skin incision created. Median parapatellar arthrotomy, distal AP and chamfer cuts made for intramedullary reference for a 55 mm femoral component. Proximal tibia resected 2 mm off the most involved side for a 63 base plate. Bone quality was good. The patella was in excellent repair and was not resurfaced. Porous ingrowth technique was selected. Supplemental screw fixation for the tibia. A 12 poly gave excellent range of motion and balance. Prior to implantation there was periarticular infiltration of Exparel solution. A layered closure was performed with final infiltration of Exparel. Patient being reversed from anesthesia and is in the recovery room at the time of this dictation. ESTIMATED BLOOD LOSS: Minimal. Krystina Tejeda MD CM/LYUBOVL J#: [id number] T [facility] 2023-10-14 16:13:01 Called patient back and reviewed medication instructions. Patient verbalized understanding and performed teach-back. T [facility] 2023-10-13 09:00:00 Images from the original note were not included. LABS FOR PRE-OP ONLY Venipuncture collection performed by clean technique on the left anticubitus. Total of 1 attempts were made. Slight pressure and a bandage/dressing were applied to the site(s). The patient experienced no complications. The following specimens were processed according to instructions and sent to [facility] laboratories per lab order on 10/06/23: LT BLUE SST 1 RED LAV 2 PPT DK GREEN (LiHep) DK GREEN (SodH) MEZA DK BLUE (K2) DK BLUE (S) ACD Blood Culture NIPT/NTD Patient has been identified by and name and was provided with cup, antiseptic towelette, and clean catch instructions. 3 urine specimen(s) sent. Unpreserved 2 Urine Culture 1 Aptima tube Other urine [facility] 2023-10-06 16:45:33 Images from the original note were not included. Your procedure is at [facility] on 10/18/23. The address is [address] [place] [address], [id number]. [facility] nursing staff will call you the workday before your procedure to let you know what time to arrive.On the day of your procedure, please go inside that door and check in at the desk. Please note: You may not travel home alone and that includes in a taxi or by bus. We must speak to your Responsible Adult (who will be picking you up) the morning of your procedure, before the start of your procedure. This person must be an adult over the age of 18 years of age. Do not eat any solid food after midnight the night before surgery. You may have sips of clear liquids such as water, gatorade, and sprite up until two hours before your scheduled procedure. You may take your medications with a sip of water as directed by physician. Anticoagulants will be per physician guidance. Medication Note(s)/Instructions:Instruc mayda to hold losartan day before and morning of surgery and hold metformin evening before and morning of surgery, and hold furosemide morning of surgery. Pending screening, we may test for COVID. If a patient tests positive, their cases are cancelled and/or rescheduled. COVID SCREENING NOTE: Denies COVID symptoms, no testing required. Additional requests, questions, concerns:Patient states she will come in for pre-op labs/testing next week. CB number and availability provided. Patient verbalized understanding of pre-op instructions and voiced no further questions at this time. [facility] 2023-10-05 13:39:14 Images from the original note were not included. Spoke with pt regarding surgery dates. She would like to have the procedure done at [facility] on 10/18/2023. Pt is scheduled for a [place] to sign consents on 10/05 Esperanza Pizano You14 minutes ago (1:22 PM) NC Patient can be scheduled for 10/19/23 or 10/20/23 for [facility]. If wanting at the hospital then 10/18/23, 10/20/23 or 10/25/23. Doc is doing surgeries on Wednesday afternoons now. She already got cardiac clearance. Nely Teran MA [facility] 2023-10-05 13:22:09 Routed message to Nely letting her know the available dates for surgeries. Esperanza Pizano 10/05/2023 1:22 PM Esperanza Pizano [facility] 2023-10-04 13:19:24 Guillermo Soto is a 68 year old female Pt called wanting to know when is the soonest that she can get scheduled for left knee replacement. Please advise. Call back number: [phone] Denita Tony [facility] 2023-09-23 15:21:49 Patient called to ask if cleared. Informed yes. Dr. Martinez whom is covering for Dr. Boudreaux reviewed her clearance. Routed to Dr. Tejeda's staff to inform. Coral Santa MA [facility] 2023-09-23 11:19:14 09/23/2023 --- low to intermediate cardiac risk. No further testing. IM-CARDIOVASCULAR DISEASE STAFF [facility] 2023-09-23 11:02:15 Patient is needing cardiac clearance for LT TKR Kathryn Garcia MA [facility] 2023-09-22 13:11:14 Referral per Provider placed for Nephrology [facility] 2023-09-21 09:30:00 Images from the original note were not included. Venipuncture collection performed by clean technique on the left anticubitus. Total of 1 attempts were made. Slight pressure and a bandage/dressing were applied to the site(s). The patient experienced no complications. The following specimens were processed according to instructions and sent to [facility] laboratories per lab order on 09/21/2023 : LT BLUE SST 1 RED LAV PPT DK GREEN (LiHep) DK GREEN (SodH) MEZA DK BLUE (K2) DK BLUE (S) ACD Blood Culture NIPT/NTD [facility] 2023-09-21 09:00:00 Addended by: RICKEY CONN DNP-JING CAIN on: 09/22/2023 07:08 AM Modules accepted: Orders [facility] 2023-09-17 09:39:15 Pt is scheduled Filomena Mars [facility] 2023-09-16 09:16:37 Guillermo Soto is a 68 year old female patient requesting to speak with nurse to go over MRI results from 08/16. Please advise. Sven Snyder [facility] 2023-08-17 09:00:10 Submitted an MRI for her Left knee within [facility]. Esperanza Pizano 08/17/2023 9:00 AM [facility] 2023-08-16 11:00:42 Guillermo Soto is a 68 year old female is calling requesting order for MRI of the knee for [facility] . Silvia Em [facility] 2023-08-09 10:18:40 Called patient to let her know the MRI order will be sent to [place]. Also let her know to bring her CD/report for her appointment. Esperanza Pizano 08/09/2023 10:19 AM Esperanza Jacinto [facility] 2023-08-09 10:16:57 MRI order will be faxed to [place] today. Esperanza Jacinto Harinder 08/09/2023 10:17 AM Esperanza Jacinto [facility] 2023-08-04 12:02:39 To follow up with ortho Virginia Peacock MD T [facility] 2023-08-02 10:32:27 Patient is requesting order for MRI to confirm that she does have arthritis to left knee. Patient confirmed that she was provided with previous xray results, but would still like to confirm all with an MRI. Please review and advise. [facility] 2023-08-02 09:22:19 Copied from [facility] #[id number]. Topic: Customer Service - Missed Call from Provider >> Aug 02, 2023 9:20 AM Patient Bellman wrote: Guillermo Soto is a 68 year old female is returning a missed call to discuss therapy that was ordered by her pcp for her knee. Please advise [phone] (home) Heather Albrecht [facility] 2023-08-02 09:16:34 LVM to callback Priscilla Arambula LVN 08/02/2023 [facility] 2023-07-30 17:16:30 Please call for more information thank you Virginia Peacock MD [facility] 2023-07-29 13:43:03 Patient want to discuss therapy that was ordered by her pcp for her knee. Delia Potts [facility] 2023-07-29 10:02:35 Images from the original note were not included. Refill approved per cardiology protocol: Cardiovascular: Beta Blockers [id number]/29/2023 06:56 AM Protocol Details Valid encounter within last 12 months Heart rate within normal limits and completed in the last 12 months Dilma Reddy MA [facility] 2023 15:08:44 Spoke to Kathia with [facility] in regards to patients wheelchair DME order sent on 07/17/23. Inquired if anything was needed in order for this order to be fulfilled. Kathia stated everything is good to go the patient just needs to call to set up a date to garbage pick up man or deliver. Contacted patient and notified her per Kathia with [facility] to give them a call to set up a date to garbage pick up man the wheelchair or have it delivered. Patient given contact umber [phone]. She verbalized understanding Miriam López LVN 2023 3:12 PM [facility] 2023 15:05:11 Contacted patient and notified her of the following message per Dr. Peacock I will not order an MRI. I can offer a referral to orthopedics if she would prefer that, orthopedics may decide to offer an MRI if appropriate Advised her to contact the [facility] Referral Department at [phone] for further assistance with scheduling. She verbalized understanding. Miriam López LVN 2023 3:06 PM [facility] 2023 11:57:46 Addended by: VIRGINIA PEACOCK on: 2023 11:57 AM Modules accepted: Orders [facility] 2023 11:56:49 I will not order an MRI. I can offer a referral to orthopedics if she would prefer that, orthopedics may decide to offer an MRI if appropriate Virginia Peacock MD [facility] 2023-07-19 16:37:56 Guillermo Soto is a 67 year old female Patient is calling relays that [facility] is needing provider to sign for the wheelchair.Also mentions there is a form she had to fill out, but is unsure how to get it sent as there is no info provided. Please contact pt with update. 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 Recent Visits Date Type Provider Dept 07/07/23 Office Visit Virginia Peacock MD [facility] 03/12/23 Office Visit Cinthya Will MD [facility] 01/08/23 Office Visit Cinthya Will MD [facility] 12/25/22 Office Visit Cinthya Will MD [facility] 12/03/22 Office Visit Cinthya Will MD [facility] 09/08/22 Office Visit Cinthya Will MD [facility] 07/03/22 Office Visit Alejandra Nice MD [facility] 06/08/22 Office Visit Cinthya Will MD [facility] 04/06/22 Office Visit Cinthya Will MD [facility] 01/26/22 Office Visit Cinthya Will MD [facility] Showing recent visits within past 540 days with a meds authorizing provider and meeting all other requirements Future Appointments Date Type Provider Dept 09/16/23 Appointment Virginia Peacock MD [facility] Showing future appointments within next 150 days with a meds authorizing provider and meeting all other requirements [facility] 2023-07-19 12:20:59 Guillermo Soto is a 67 year old female Pt calling stating that she would like to have an MRI of her knee before she does her physical therapy to make sure that she needs therapy Please advise, thank you Karon Frausto [facility] 2023-07-09 09:23:42 [facility] Fax-[phone] [facility] 2023-07-08 15:25:27 Delia from [facility] is requesting provider fax referral for physical therapy . Fax-[phone] SSA Joe Santos [facility] 2023-05-31 13:33:02 Patient was notified of the results below, he/she verbally understood and agreed to the plan. Thank you. Patient stated she needs a refill on her carvedilol 3.125 she takes it twice a day, needs it sent to [facility]. Sent refill to patients pharmacy of choice. Thank you. Lipid panel at [facility]. CMP within acceptable limits. Creatinine back to normal. Potassium normal. Mild elevated LFTs noted still stable similar to 2 months ago. CBC within acceptable stable limits. Magnesium level normal. CK levels normal. BNP back to normal range A1c stable. Continue the current cardiac medications without any further changes. [facility] 2023-05-28 15:23:06 Images from the original note were not included. Desiree Boudreaux MD P Cardiology Nurse Lipid panel at [facility]. CMP within acceptable limits. Creatinine back to normal. Potassium normal. Mild elevated LFTs noted still stable similar to 2 months ago. CBC within acceptable stable limits. Magnesium level normal. CK levels normal. BNP back to normal range A1c stable. Continue the current cardiac medications without any further changes. [facility] Parris Angeles RN [facility] 2023-05-26 11:45:00 Images from the original note were not included. Venipuncture collection performed by clean technique on the right anticubitus. Total of 1 attempts were made. Slight pressure and a bandage/dressing were applied to the site(s). The patient experienced no complications. The following specimens were processed according to instructions and sent to [facility] laboratories per lab order on 05/26/2023 : LT BLUE SST 1 RED LAV 2 PPT DK GREEN (LiHep) DK GREEN (SodH) MEZA DK BLUE (K2) DK BLUE (S) ACD Blood Culture NIPT/NTD [facility] 2023-05-26 09:48:53 Guillermo Soto is a 67 year old female LVM to let patient know that orders have been placed for labs prior to next visit per MD Boudreaux. [facility] Meli Reddy [facility] 2023-05-24 15:39:06 Orders placed for labs to be done prior to the next visit. [facility] 2023-05-21 16:02:59 Guillermo Soto is a 67 year old female Patient is calling to see if she is needing to do any lab work prior to office visit on 05/28/23 Please advise [phone] (home) SSA Reddy [facility] 2023-04-23 10:48:05 Addended by: PARRIS ANGELES RN on: 04/23/2023 10:48 AM Modules accepted: Orders [facility] 2023-04-23 10:46:02 Atorvastatin refill sent to [facility] [address] Lab orders placed for further refills [facility] 2023-01-18 11:10:29 Formatting of this n ote might be different from the original. Refill approved per cardio guidelines [facility] 2023-01-08 10:30:00 Formatting of this n ote is different from the original. Images from the original note were not included. Venipuncture collection performed by clean technique on the right anticubitus. Total of 1 attempts were made. Slight pressure and a bandage/dressing were applied to the site(s). The patient experienced no complications. The following specimens were processed according to instructions and sent to [facility] laboratories per lab order on 01/08/2023 : LT BLUE SST 1 RED LAV PPT DK GREEN (LiHep) DK GREEN (SodH) MEZA DK BLUE (K2) DK BLUE (S) ACD Blood Culture NIPT/NTD T [facility] 2023-01-05 08:36:04 Formatting of this n ote is different from the original. Notified patient per DR. Boudreaux: Compression stockings strength of 20-30 mmHg Patient verbal understanding and stated she already went to [employer] and got stockings and that they measured her and recommended 15-20. T Dilma Reddy MA [facility] 2023-01-01 16:16:25 Formatting of this n ote might be different from the original. Compression stockings strength of 20-30 mmHg T [facility] 2022-12-25 17:00:00 Formatting of this n ote is different from the original. Images from the original note were not included. Venipuncture collection performed by clean technique on the right hand. Total of 3 attempts were made. Slight pressure and a bandage/dressing were applied to the site(s). The patient experienced no complications. The following specimens were processed according to instructions and sent to [facility] laboratories per lab order on today: LT BLUE SST 1 RST RED LAV PPT DK GREEN (LiHep) DK GREEN (SodH) MEZA DK BLUE (K2) DK BLUE (S) ACD Blood Culture NIPT/NTD [facility] 2022-12-24 08:18:44 Formatting of this n ote is different from the original. Images from the original note were not included. Endocrinology: Diabetes - Biguanides Passed 12/24/2022 12:31 AM Protocol Details Valid encounter within last 12 months Cr is between 0 and 1.3 and within 360 days HBA1C within 180 days metFORMIN 500 mg tablet 180 tablet 1 09/08/2022 Recent Visits Date Type Provider Dept 12/03/22 Office Visit Cinthya Will MD [facility] 09/08/22 Office Visit Cinthya Will MD [facility] 07/03/22 Office Visit Alejandra Nice MD [facility] 06/08/22 Office Visit Cinthya Will MD [facility] 04/06/22 Office Visit Cinthya Will MD [facility] 01/26/22 Office Visit Cinthya Will MD [facility] 12/15/21 Office Visit Jing Conn FNP [facility] 08/21/21 Office Visit Jing Conn FNP [facility] Showing recent visits within past 540 days with a meds authorizing provider and meeting all other requirements Future Appointments Date Type Provider Dept 03/12/23 Appointment Cinthya Will MD [facility] Showing future appointments within next 150 days with a meds authorizing provider and meeting all other requirements [facility] 2022-12-22 13:23:04 Formatting of this n ote might be different from the original. Will route to Dr. Boudreaux for assistance Kathryn Garcia MA [facility] 2022-12-22 12:50:15 Formatting of this n ote might be different from the original. Guillermo Soto is a 67 year old female Patient calling stating that [employer] is needing the strength of her compression socks. Patient is also asking if she can get the compression socks that go up to her knees. Please advise Shannan Kent [facility] 2022-12-17 15:48:43 Formatting of this n ote might be different from the original. Duplicate request Karrie Lucero RN [facility] 2022-12-15 11:52:17 Formatting of this n ote might be different from the original. Signed in [employer] [facility] 2022-12-15 09:31:58 Formatting of this n ote might be different from the original. Order to DC OT until patient is released by approved and ready for provider signature. PT evaluation order also approved and ready for provider signature. Please review and sign if appropriate. Buffy Shafer RN [facility] 2022-12-15 09:12:20 Formatting of this n ote might be different from the original. Home Health Certification and Plan of care approved and ready for provider signature. Certification period 12/05/22-02/02/23 Please review and sign. Buffy Shafer RN [facility] 2022-12-03 12:00:00 Formatting of this n ote is different from the original. Images from the original note were not included. Venipuncture collection performed by clean technique on the right hand. Total of 3 attempts were made. Slight pressure and a bandage/dressing were applied to the site(s). The patient experienced no complications. The following specimens were processed according to instructions and sent to [facility] laboratories per lab order on today: LT BLUE SST 1 RED LAV PPT DK GREEN (LiHep) DK GREEN (SodH) MEZA DK BLUE (K2) DK BLUE (S) ACD Blood Culture NIPT/NTD Patient was a hard stick drawn twice by me and once by Nilson. Patient was ALSO NOT FASTING.Brenna Martinez 12/03/2022 12:20 PM Patient has been identified by name and was provided with cup, antiseptic towelette, and clean catch instructions. 1 urine specimen(s) sent. Unpreserved 1 Urine Culture Aptima tube Other urine Brenna Martinez [facility] 2022-12-03 12:00:00 Addended by: DESIREE BOUDREAUX on: 12/03/2022 05:01 PM Modules accepted: Orders [facility] 2022-11-26 09:20:11 Formatting of this n ote might be different from the original. Images from the original note were not included. Called patient for results. Patient verbalized understanding with no further question. Desiree Boudreaux MD P Cardiology Nurse; Cinthya Will MD Labs done today dated 11/25/2022 reviewed. LDL at 22 noted. Please ask her to reduce Lipitor from 80 mg to 40 mg daily. New prescription already sent today. Continue with the current dose of Repatha without any changes. Repeat lipid panel in 3 months time. Orders placed. Rest of the lipid panel within acceptable stable limits. CMP within acceptable stable limits. Mildly elevated alk phosphatase similar to 6 months ago. NT-proBNP normal CBC within acceptable stable limits. A1c at 5.8 similar to 6 months ago. CCed message to Dr. Will also regarding the A1c at the request of patient/son. Kathryn Garcia MA [facility] 2022-11-25 10:30:00 Formatting of this n ote is different from the original. Images from the original note were not included. Venipuncture collection performed by clean technique on the right hand. Total of 1 attempts were made. Slight pressure and a bandage/dressing were applied to the site(s). The patient experienced no complications. The following specimens were processed according to instructions and sent to [facility] laboratories per lab order on 11/25/2022 : LT BLUE SST 1 RED LAV 2 PPT DK GREEN (LiHep) DK GREEN (SodH) MEZA DK BLUE (K2) DK BLUE (S) ACD Blood Culture NIPT/NTD [facility] 2022-11-25 10:00:00 Addended by: DESIREE BOUDREAUX on: 11/25/2022 03:29 PM Modules accepted: Orders [facility]
[2024-01-06 08:32] LABS: Absolute Eosinophils 0.2 K/uL (0-0.5); Absolute Lymphocytes (CBC) 1.9 K/uL (0.7-4.9); Absolute Monocytes 0.5 K/uL (0.1-1.3); Absolute Neutrophil 3.1 K/uL (1.8-8.0); Basophils % 0.7 % (0-1.3); Eosinophils % 3.9 % (0-4.4); Hematocrit 38.6 % (36.0-45.0); Hemoglobin 12.9 g/dL (12.0-15.0); Lymphocytes % 32.2 % (15.3-44.8); MCH 30.2 pg (27.0-35.0); MCHC 33.3 g/dL (32.0-36.0); MCV 90.5 fL (80-100); MPV 8.2 fL (7.6-11.3); Monocytes % 9.2 % (3.3-12.3); Nucleated Red Blood Cells % 0.1 % (0-0); Platelets 229 thou/uL (152-406); RBC Red Blood Cell Count 4.27 M/uL (3.86-4.86); Red Cell Distribution Width 13.9 % (12.1-15.2)
[2024-01-06 08:50] LABS: Anion Gap 7.9 mEq/L (5.0-15.0); Potassium 3.9 mEq/L (3.5-5.1); Troponin High Sensitivity 38.3 pg/mL (<58.9)
[2024-01-06] MEDS ORDERED: MECLIZINE HCL 12.5 MG TAB ONE (08:52)
--- NOTE | 2024-01-06 08:59 | RAD REPORT ---
EXAM DESCRIPTION: Jaycee Single View01/06/2024 8:29 am CLINICAL HISTORY: Chest pain COMPARISON: 2022 FINDINGS: The lungs appear clear of acute infiltrate. The heart is mildly enlarged Subcentimeter area sclerosis within a lower anterior right rib unchanged.
--- NOTE | 2024-01-06 09:44 | RAD REPORT ---
EXAM DESCRIPTION: CT - Head Brain Wo Cont - 01/06/2024 9:06 am CLINICAL HISTORY: Dizziness COMPARISON: None TECHNIQUE: Computed axial tomography of the head was obtained. IV contrast was not requested. All CT scans are performed using dose optimization technique as appropriate and may include automated exposure control or mA/KV adjustment according to patient size. FINDINGS: An intracranial bleed is not seen The ventricles are normal in caliber No extra-axial fluid collection is noted. Mild low-density areas within periventricular, deep and subcortical white matter likely represent is chemic changes secondary to small vessel disease. Fluid within the sinuses/ mastoids is not seen. IMPRESSION: No acute intracranial abnormality is seen If patient's symptoms persist MRI of the brain would be recommended
--- NOTE | 2024-01-06 11:05 | EDPHYS ---
Physician Documentation [facility] Name: Debbi Soto Age: 68 yrs Sex: Female : 1955 Arrival Date: 01/06/2024 Time: 07:55 Bed 4 Private MD: ED Physician Daron Aparicio HPI: 01/05 16:33 This 68 yrs old Female presents to ER via Ambulatory with complaints of ms3 Dizziness. 16:33 68-year-old female past medical history of diabetes, hyperlipidemia, hypertension, ms3 sleep apnea presents to the emergency department for dizziness that began yesterday at 3 PM. Patient states the dizziness is described as the room spinning. Patient has had this occur in the past and was diagnosed with vertigo. Patient denies chest pain or shortness of breath. Historical: - Allergies: 08:11 Morphine; aa5 08:11 PENICILLINS; aa5 08:11 Tramadol HCl; aa5 - PMHx: 08:11 diabetes mellitus; Hyperlipidemia; Hypertension; Sleep Apnea; aa5 - PSHx: 08:11 section; Cholecystectomy; hernia repair; knee; Ligation of fallopian tube; aa5 Shoulder; - Immunization history:: Adult Immunizations unknown. - Infectious Disease History:: Denies. - Social history:: Smoking status: Patient denies any tobacco usage or history of. ROS: 16:33 Constitutional: Negative for fever, and chills. Neck: Negative for injury, pain, and ms3 swelling, Cardiovascular: Negative for chest pain, and palpitations. Respiratory: Negative for shortness of breath, cough, wheezing, and pleuritic chest pain, Abdomen/GI: Negative for abdominal pain, nausea, vomiting, diarrhea, and constipation, MS/Extremity: Negative for injury and deformity, 16:33 Neuro: Positive for dizziness, Exam: 10:40 ECG was reviewed by the Attending Physician. ms3 16:33 Constitutional: This is a well developed, well nourished patient who is awake, alert, ms3 and in no acute distress. Head/Face: Normocephalic, atraumatic. Chest/axilla: Normal chest wall appearance and motion. Nontender with no deformity. Cardiovascular: Regular rate and rhythm with a normal S1 and S2. No gallops, murmurs, or rubs. Normal PMI, no JVD. No pulse deficits. Respiratory: Lungs have equal breath sounds bilaterally, clear to auscultation and percussion. No rales, rhonchi or wheezes noted. No increased work of breathing, no retractions or nasal flaring. Abdomen/GI: Soft, non-tender, with normal bowel sounds. No distension or tympany. No guarding or rebound. No evidence of tenderness throughout. 16:33 Neuro: Orientation: is normal, to person, place, time \T\ situation. Mentation: is normal, Memory: is normal, Cranial nerves: CN I not tested, CN II- XII are normal as tested, Cerebellar function: normal finger to nose testing, Motor: is normal, Sensation: is normal, Vital Signs: 08:12 BP 166 / 73; Pulse 60; Resp 18 S; Temp 97.6(TE); Pulse Ox 96% on R/A; Weight 117.03 kg aa5 (R); Height 4 ft. 11 in. (R); 09:55 BP 152 / 78; Pulse 56; Resp 18; Pulse Ox 95% on R/A; ph 11:00 BP 145 / 75; Pulse 60; Resp 17; Pulse Ox 99% ; rs5 08:12 Body Mass Index 52.11 (117.03 kg, 149.86 cm) aa5 MDM: 08:43 Patient medically screened. ms3 16:33 Differential diagnosis: CVA, idiopathic dizziness, TIA, vertigo. Data reviewed: vital ms3 signs, nurses notes, lab test result(s), EKG, radiologic studies, and as a result, I will discharge patient. I considered the following discharge prescriptions or medication management in the emergency department Medications were administered in the Emergency Department. See MAR. Independent interpretation of the following test(s) in the Emergency Department EKG: See my EKG interpretation above CT Scan: My interpretation is CT head without contrast images reviewed by me do not reveal intracranial. Care significantly affected by the following chronic conditions: Diabetes, Hypertension. Counseling: I had a detailed discussion with the patient and/or guardian regarding the historical points, exam findings, and any diagnostic results supporting the discharge/admit diagnosis, lab results, radiology results, the need for outpatient follow up, to return to the emergency department if symptoms worsen or persist or if there are any questions or concerns that arise at home. Special discussion: I discussed with the patient/guardian in detail that at this point there is no indication for admission to the hospital. It is understood, however, that if the symptoms persist or worsen the patient needs to return immediately for re-evaluation. ED course: On reevaluation patient symptoms improved after meclizine. Patient is alert and oriented x 4, no apparent distress, nontoxic-appearing, speaking full sentences, ambulatory in the emergency department. patient to follow-up with her primary care physician in 2 to 3 days. All questions were answered. Return precautions discussed include worsening symptoms, or any other concerns.. 01/05 08:13 Order name: Basic Metabolic Panel; Complete Time: 09:05 ms3 01/05 08:13 Order name: CBC with Diff; Complete Time: 09: ms3 01/05 08:13 Order name: Troponin HS; Complete Time: 09:05 ms3 01/05 10:05 Order name: Troponin High Sensitivity; Complete Time: 10:40 ms3 01/05 08:13 Order name: XRAY Chest (1 view); Complete Time: 09: ms3 01/05 08:40 Order name: CT Head Brain wo Cont; Complete Time: 10:05 ms3 01/05 08:13 Order name: EKG; Complete Time: 08:13 ms3 01/05 08:13 Order name: Cardiac monitoring; Complete Time: 08:50 ms3 01/05 08:13 Order name: EKG - Nurse/Tech; Complete Time: 08:50 ms3 01/05 08:13 Order name: IV Saline Lock; Complete Time: 08:50 ms3 01/05 08:13 Order name: Labs collected and sent; Complete Time: 08:50 ms3 01/05 08:13 Order name: O2 Per Protocol; Complete Time: 08:50 ms3 01/05 08:13 Order name: O2 Sat Monitoring; Complete Time: 08:50 ms3 EC:40 Rate is 57 beats/min. Rhythm is regular. QRS Rodney is Normal. NV interval is normal. QRS ms3 interval is normal. Clinical impression: Sinus bradycardia. Interpreted by me. Reviewed by me. Administered Medications: 08:50 Drug: Meclizine PO 50 mg PO once Route: PO; rs5 10:14 Follow up: Response: No adverse reaction; Marked relief of symptoms ph Disposition Summary: 01/06/24 11:05 Discharge Ordered Notes: Location: Home ms3 Condition: Stable ms3 Diagnosis - Benign paroxysmal vertigo, unspecified ear ms3 Followup: ms3 - With: Luis Barbour DO - When: 2 - 3 days - Reason: Recheck today's complaints Discharge Instructions: - Discharge Summary Sheet ms3 - Benign Positional Vertigo ms3 Forms: - Medication Reconciliation Form ms3 - Antibiotic Education ms3 - Prescription Opioid Use ms3 - Patient Portal Instructions ms3 - Leadership Thank You Letter ms3 Prescriptions: - Meclizine 25 mg Oral Tablet - take 1 tablet ORAL route every 8 hours As needed; 30 tablet; Refills: 0, ms3 Product Selection Permitted Signatures: Dispatcher [employer] EDMS Daysi Lynn RN RN aa5 Daron Aparicio DO DO ms3 Frankie Chairez RN RN rs5 Lou Jaramillo RN ph
--- NOTE | 2024-01-06 11:05 | ER ---
Nurse's Notes [facility] Name: Debbi Soto Age: 68 yrs Sex: Female : 1955 Arrival Date: 01/06/2024 Time: 07:55 Bed 4 Private MD: Diagnosis: Benign paroxysmal vertigo, unspecified ear Presentation: 01/05 08:12 Chief complaint: Patient states: dizziness since yesterday, reports worse with aa5 movement, and describes it as "the room spinning". Coronavirus screen: At this time, the client does not indicate any symptoms associated with coronavirus-19. Ebola Screen: Patient denies travel to an Ebola-affected area in the 21 days before illness onset. Initial Sepsis Screen: Does the patient meet any 2 criteria? No. Patient's initial sepsis screen is negative. Does the patient have a suspected source of infection? No. Patient's initial sepsis screen is negative. Risk Assessment: Do you want to hurt yourself or someone else? Patient reports no desire to harm self or others. Onset of symptoms was January 05, 2024. 08:12 Acuity: GONSALO 3 aa5 08:12 Method Of Arrival: Ambulatory aa5 Historical: - Allergies: 08:11 Morphine; aa5 08:11 PENICILLINS; aa5 08:11 Tramadol HCl; aa5 - PMHx: 08:11 diabetes mellitus; Hyperlipidemia; Hypertension; Sleep Apnea; aa5 - PSHx: 08:11 section; Cholecystectomy; hernia repair; knee; Ligation of fallopian tube; aa5 Shoulder; - Immunization history:: Adult Immunizations unknown. - Infectious Disease History:: Denies. - Social history:: Smoking status: Patient denies any tobacco usage or history of. Screenin:02 [facility] ED Fall Risk Assessment (Adult) History of falling in the last 3 months, rs5 including since admission No falls in past 3 months (0 pts) Confusion or Disorientation No (0 pts) Intoxicated or Sedated No (0 pts) Impaired Gait No (0 pts) Mobility Assist Device Used No (0 pt) Altered Elimination No (0 pt) Score/Fall Risk Level 0 - 2 = Low Risk Oriented to surroundings, Maintained a safe environment. Abuse screen: Denies threats or abuse. Nutritional screening: No deficits noted. Tuberculosis screening: No symptoms or risk factors identified. Assessment: 08:02 General: Appears in no apparent distress. uncomfortable, Behavior is calm, cooperative. rs5 Pain: Denies pain. Neuro: Level of Consciousness is awake, alert, obeys commands, Oriented to person, place, time, situation. Neuro: Reports dizziness. Cardiovascular: Patient's skin is warm and dry. Respiratory: Airway is patent Respiratory effort is even, unlabored, Respiratory pattern is regular, symmetrical. GI: Abdomen is round non-distended. : No signs and/or symptoms were reported regarding the genitourinary system. EENT: No signs and/or symptoms were reported regarding the EENT system. Derm: Skin is intact, Skin is pink, warm \\T\\ dry. Musculoskeletal: Range of motion: intact in all extremities. 09:01 Reassessment: Patient and/or family updated on plan of care and expected duration. Pain rs5 level reassessed. Patient is alert, oriented x 3, equal unlabored respirations, skin warm/dry/pink. Patient states feeling better. 09:57 Reassessment: No changes from previously documented assessment. rs5 11:00 Reassessment: No changes from previously documented assessment. rs5 Vital Signs: 08:12 BP 166 / 73; Pulse 60; Resp 18 S; Temp 97.6(TE); Pulse Ox 96% on R/A; Weight 117.03 kg aa5 (R); Height 4 ft. 11 in. (R); 09:55 BP 152 / 78; Pulse 56; Resp 18; Pulse Ox 95% on R/A; ph 11:00 BP 145 / 75; Pulse 60; Resp 17; Pulse Ox 99% ; rs5 08:12 Body Mass Index 52.11 (117.03 kg, 149.86 cm) aa5 ED Course: 07:57 Patient arrived in ED. im 08:02 Patient has correct armband on for positive identification. Placed in gown. Bed in low rs5 position. Call light in reach. Side rails up X2. 08:02 No provider procedures requiring assistance completed. rs5 08:04 Daron Aparicio DO is Attending Physician. ms3 08:05 Inserted saline lock: 24 gauge in left forearm, using aseptic technique. Blood rs5 collected. Flushed with 10 mL NS. 08:09 Frankie Chairez, YOLANDA is Primary Nurse. rs5 08:11 Arm band placed on Patient placed in an exam room, on a stretcher. aa5 08:13 Triage completed. aa5 08:31 XRAY Chest (1 view) In Process Unspecified. EDMS 09:07 CT Head Brain wo Cont In Process Unspecified. EDMS 10:14 Troponin High Sensitivity Sent. ph 10:15 Repeat lab(s) drawn. by la, sent to lab. ph 11:04 Luis Barbour DO is Referral Physician. ms3 11:10 IV discontinued, intact, bleeding controlled, No redness/swelling at site. Pressure rs5 dressing applied. 11:33 Primary Nurse role handed off by Frankie Chairez, RN aa5 Administered Medications: 08:50 Drug: Meclizine PO 50 mg PO once Route: PO; rs5 10:14 Follow up: Response: No adverse reaction; Marked relief of symptoms ph Medication: 08:33 VIS not applicable for this client. rs5 Outcome: 11:05 Discharge ordered by MD. ms3 11:10 Discharged to home ambulatory, rs5 11:10 Condition: stable rs5 11:10 Discharge instructions given to patient, family, Instructed on discharge instructions, follow up and referral plans. Demonstrated understanding of instructions, follow-up care, 11:13 Patient left the ED. aa5 Signatures: Dispatcher [employer] EDMS Daysi Lynn, RN RN aa5 Lou Jaramillo RN RN Daron Chamberlain DO DO ms3 Frankie Chairez, RN RN rs5 Sheeba Ortega Corrections: (The following items were deleted from the chart) 18:08 11:41 Patient left the ED. aa5 rs5
[2024-01-06 11:30] VITALS: TEMP 97.6
[2024-01-06 12:07] VITALS: BP 152/78; O2SAT 95
--- NOTE | 2024-01-07 14:09 | EKG ---
Test Date: 2024-01-06 Test Time: 08:24:33 Senior Research Project Manager: TATYANA MEASUREMENT RESULTS: Intervals: Rate: 57 IA: 190 QRSD: 86 QT: 410 QTc: 399 [place]: P: 47 IA: 190 QRS: 75 T: -2 INTERPRETIVE STATEMENTS: Sinus bradycardia with sinus arrhythmia Nonspecific T wave abnormality Abnormal ECG Compared to ECG 03/13/2023 00:56:12 T-wave abnormality now present Sinus rhythm no longer present Electronically Signed On 01-07-24 14:06:54 CDT by Adi Parr
== END 2024-01-06 11:41 | disposition home or self-care (01) ==
LOC: ER 07:55
DX: H81.10 Benign paroxysmal vertigo, unspecified ear (principal); I10 Essential (primary) hypertension; E11.9 Type 2 diabetes mellitus without complications
CPT/HCPCS: 93005; 85025; 80048; 36415; 84484 ×2; 70450; 71045; 99284; J8597